=== PATIENT | male | born 1960 ===

== ENCOUNTER 2018-02-04 04:05 | Inpatient (IN) | payer BC, OTHER ==
[2018-02-04 04:22] VITALS: BMI 36.2
--- NOTE | 2018-02-04 04:22 | ED PDOC ---
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 ONCE ONE Stop: 02/04/18 07:24 Last Admin: 02/04/18 07:58 Dose: 50 meq IVP Administration Document 02/04/18 07:58 [facility] (Rec: 02/04/18 07:58 [id number]) Charges for Administration # of IVP Administrations 1 - Scribe Statement The provider has reviewed the documentation as recorded by the Sulaimanibhumaira Minor Provider Scribe Attestation: All medical record entries made by the Scribe were at my direction and personally dictated by me. I have reviewed the chart and agree that the record accurately reflects my personal performance of the history, physical exam, medical decision making, and the department course for this patient. I have also personally directed, reviewed, and agree with the discharge instructions and disposition. Disposition/Present on Arrival - Present on Arrival Any Indicators Present on Arrival: No - Disposition Have Diagnosis and Disposition been Completed?: Yes Diagnosis: Cardiac arrest Disposition: HOSPITALIZED Disposition Time: 05:25 Patient Problems: Current Active Problems Problem Status Onset Acute kidney injury Acute Anoxic brain injury Acute CHF (congestive heart failure) Acute Condition: CRITICAL
[2018-02-04 04:42] LABS: BASO # 0.06 K/mm3 (0.0-2.0); BASO % 0.3 % (0.0-3.0); EOS # 0.3 (0.0-0.7); EOS % 1.7 % (1.5-5.0); GRAN # 9.08 (1.4-6.5); GRAN % 47.9 % (50.0-68.0); HEMOGLOBIN 15.6 g/dL (14.0-18.0); LYMPH # 8.4 (1.2-3.4); LYMPH % 44.5 % (22.0-35.0); MEAN CELL VOLUME 87.1 fl (80.0-105.0); MEAN CORPUSCULAR HEMOGLOBIN 29.6 pg (25.0-35.0); MEAN PLATELET VOLUME 10.4 fl (7.0-11.0); MONO # 1.1 (0.1-0.6); MONO % 5.6 % (1.0-6.0); RBC 5.27 10^6/uL (3.5-6.1); RED CELL DISTRIBUTION WIDTH 13.9 % (11.5-14.5)
[2018-02-04 04:47] LABS: INR 1.07 (0.93-1.08); PARTIAL THROMBOPLASTIN TIME 30.1 Seconds (25.1-36.5); PROTHROMBIN TIME 12.3 SECONDS (9.4-12.5)
[2018-02-04] MEDS ORDERED: Propofol 10 mg/ml 0 MG/0 ML VIAL ONE (05:05)
[2018-02-04 05:46] LABS: ALB/GLOB RATIO 1.4 (1.1-1.8); ALBUMIN 4.4 g/dL (3.0-4.8); ALT/SGPT 204 U/L (7-56); AST/SGOT 222 U/L (17-59); BLOOD UREA NITROGEN 14 mg/dL (7-21); CALCIUM 8.7 mg/dL (8.4-10.5); GFR AFRICAN-AMERICAN > 60; GFR NON-AFRICAN AMERICAN 57; TROPONIN I 0.73 ng/mL
--- NOTE | 2018-02-04 05:57 | CT ---
EXAM: CT Head Without Intravenous Contrast CLINICAL HISTORY: 57 years old, male; Signs and symptoms; Other: Cardiac arrest TECHNIQUE: Axial computed tomography images of the head/brain without intravenous contrast. All CT scans at this facility use one or more dose reduction techniques, viz.: automated exposure control; ma/kV adjustment per patient size (including targeted exams where dose is matched to indication; i.e. head); or iterative reconstruction technique. Coronal and sagittal reformatted images were created and reviewed. COMPARISON: No relevant prior studies available. FINDINGS: Limitations: Motion artifact - mild to moderate. Brain: No definite intracranial hemorrhage. No mass. Poorly defined torres-white matter differentiation. Ventricles: No hydrocephalus. Bones/joints: No acute fracture. Soft tissues: Unremarkable. Sinuses: Scattered mild mucosal thickening of ethmoid sinuses. Mastoid air cells: No mastoid effusion. Orbits: Unremarkable as visualized. Tubes, lines and devices: Endotracheal tube. IMPRESSION: 1. Findings concerning for global hypoxic ischemic injury. Followup is suggested. 2. Incidental/non-acute findings are described above.
[2018-02-04] MEDS ORDERED: Nitroglycerin 2% Ointment Foilpak UD TOP ONE (06:14)
[2018-02-04] MEDS ORDERED: Nitroglycerin 2% Ointment Foilpak UD TOP STA (06:22)
[2018-02-04] MEDS: Propofol 10 mg/ml 1,000 MG/100 ML VIAL IV PRN ×3 (06:27→16:57)
[2018-02-04] MEDS ORDERED: Pantoprazole 40mg/100mL NS 40 MG/100 ML BAG IVPB SCH (06:30)
[2018-02-04] MEDS ORDERED: Nitroglycerin 50mg in D5W 50 MG/250 ML BOTTLE IV PRN (06:34)
[2018-02-04] MEDS ORDERED: Nitroglycerin 50mg in D5W 50 MG/250 ML BOTTLE IV ONE (06:36)
[2018-02-04] MEDS ORDERED: cefTRIAXone 2 GM IN NS 2 GM/100 ML BAG IVPB STA (06:44)
--- NOTE | 2018-02-04 06:59 | CP.PCM.HP ---
<Huber Sutton - Last Filed: 02/04/18 07:53> History of Present Illness - History of Present Illness History of Present Illness: PGY-1 H&P for Dr. Morgan This is a 57 year old male with PMHx HTN, CAD s/p CABG and 4 stents, unspecified thyroid disease who presented to the hospital brought in by ambulance after cardiac arrest. Patient currently intubated. All history provided by and supplemented by EMR review. The states that she woke up around 3AM and found that her was breathing heavily. After seeing that he was not responding, she called EMS. After arrival of emergency responders, ACLS protocol implemented. Patient noted to be in V-fib and was shocked for a total of 5 times. Two rounds of Epinephrine were given, and the placement was given amiodarone. It is unknown how long it took to achieve ROSC. Patient was ventilated with temporary airway until arrival to the ED where he was intubated. PMHx: HTN, CAD s/p CABG, unspecified thyroid disease PSHx: CABG 10 years ago Allergies: NKDA Social: Smoker 1 ppd for 40 years. No noted alcohol or drug use per . Works as director security management. Family Hx: is unsure of cardiac history in the family. PMD: does not have one at this time Home meds: ASA 81 mg, Metoprolol (unknown dose), unspecified thyroid medication Present on Admission - Present on Admission Any Indicators Present on Admission: No Review of Systems - Review of Systems Systems not reviewed;Unavailable: Acuity of Condition, Intubated Past Patient History - Infectious Disease Hx of Infectious Diseases: None - Past Social History Smoking Status: Unknown If Ever Smoked - CARDIAC Hx Cardiac Disorders: Yes Hx Hypertension: Yes Other/Comment: CABG c 4 stents - PULMONARY Hx Respiratory Disorders: No - NEUROLOGICAL Hx Neurological Disorder: No - HEENT Hx HEENT Problems: No - RENAL Hx Chronic Kidney Disease: No - ENDOCRINE/METABOLIC Hx Endocrine Disorders: Yes Hx Hypothyroidism: Yes - HEMATOLOGICAL/ONCOLOGICAL Hx Blood Disorders: No - INTEGUMENTARY Hx Dermatological Problems: No - MUSCULOSKELETAL/RHEUMATOLOGICAL Hx Musculoskeletal Disorders: No - GASTROINTESTINAL Hx Gastrointestinal Disorders: No - GENITOURINARY/GYNECOLOGICAL Hx Genitourinary Disorders: No - PSYCHIATRIC Hx Psychophysiologic Disorder: No Hx Substance Use: No - SURGICAL HISTORY Hx Surgeries: Yes Hx Coronary Artery Bypass Graft: Yes - ANESTHESIA Hx Anesthesia: Yes Hx Anesthesia Reactions: No Meds Allergies/Adverse Reactions: Allergies Allergy/AdvReac Type Severity Reaction Status Date / Time No Known Allergies Allergy Verified 02/04/18 04:41 Physical Exam - Constitutional Appears: In Acute Distress - Head Exam Head Exam: ATRAUMATIC, NORMOCEPHALIC - Eye Exam Eye Exam: Normal appearance Additional comments: Pupils equal but not responsive to light - ENT Exam ENT Exam: Mucous Membranes Moist Additional comments: OGT in place with coffee ground material inside - Respiratory Exam Respiratory Exam: Rales (right sided), Wheezes (left sided lung field). absent : Rhonchi - Cardiovascular Exam Cardiovascular Exam: Tachycardia, +S1, +S2. absent: JVD - GI/Abdominal Exam GI & Abdominal Exam: Distended, Normal Bowel Sounds, Soft. absent: Tenderness - Extremities Exam Extremities exam: Negative for: pedal edema Additional comments: varicose veins bilateral legs scar on right leg left leg IO line in place - Neurological Exam Neurological exam: Altered - Skin Skin Exam: Diaphoretic, Warm Additional comments: mid-line chest scar Results - Vital Signs Recent Vital Signs: Last Vital Signs Temp 97.2 F L 02/04/18 04:29 Pulse 113 H 02/04/18 06:21 Resp 15 02/04/18 06:21 BP 170/117 H 02/04/18 06:21 Pulse Ox 100 02/04/18 06:21 - Labs Result Diagrams: 02/04/18 04:12 02/04/18 05:00 Assessment & Plan - Assessment and Plan (Free Text) Assessment: This is a 57 year old male with PMHx HTN, CAD s/p CABG and 4 stents, unspecified thyroid disease who presented to the hospital brought in by ambulance after cardiac arrest. Plan: Neurological -Head CT shows concern for hypoxic brain injury -Down time unknown -Code Freeze initiated -Neurology Consulted -EEG ordered -sedated with propofol Cardiology -s/p cardiac arrest -s/p V-fib -per documentation shocked total of 5 times, 2 rounds of epi, and amiodarone given -Positive troponins, continue to trend -EKG on hospital presentation shows NSR with some ST depressions in apical leads -BNP ordered -Echocardiogram ordered Pulmonology -Intubated, see orders for settings -Xopenex prn GI -coffee ground material in OGT -Protonix IV Infectious Disease -Leukocytosis -f/u blood and urine cultures -Given 2 gm Rocephin -ID consulted Endocrine -hyperglycemia on admission -Insulin sliding scale Renal -lactic acidosis -Bicarb drip Heme/Onc -H/H currently stable -D dimer ordered Prophylaxis -Protonix IV Discussed with Dr. Cathy Sutton PGY-1 <Neo Morgan - Last Filed: 02/04/18 20:05> Results - Vital Signs Recent Vital Signs: Last Vital Signs Temp 94 F L 02/04/18 14:56 Pulse 95 H 02/04/18 18:30 Resp 35 H 02/04/18 14:56 BP 117/70 02/04/18 18:30 Pulse Ox 97 02/04/18 18:30 - Labs Result Diagrams: 02/04/18 17:25 02/04/18 17:25 Labs: Laboratory Results - last 24 hr 02/04/18 02/04/18 02/04/18 06:58 07:00 07:00 WBC RBC Hgb Hct MCV MCH MCHC RDW Plt Count MPV Gran % Lymph % (Auto) [place] % (Auto) Eos % (Auto) Baso % (Auto) Gran # Lymph # (Auto) [place] # (Auto) Eos # (Auto) Baso # (Auto) Neutrophils % (Manual) Band Neutrophils % Lymphocytes % (Manual) Monocytes % (Manual) Platelet Evaluation PT INR APTT D-Dimer, Quantitative 6693 H pCO2 68 H pO2 58.0 L HCO3 16.0 L ABG pH 6.98 L* ABG Total CO2 18.1 L ABG O2 Saturation 84.0 L ABG O2 Content ABG Base Excess -16.4 L ABG Hemoglobin ABG Carboxyhemoglobin POC ABG HHb (Measured) ABG Methemoglobin ABG O2 Capacity ABG Potassium 5.0 VBG pH VBG pCO2 VBG HCO3 VBG Total CO2 VBG O2 Sat (Calc) VBG Base Excess VBG Potassium Hgb O2 Saturation Sodium 138.0 Chloride 105.0 Glucose 429 H* Lactate 6.3 H* Mechanical Rate FiO2 100.0 Tidal Volume PEEP Potassium Carbon Dioxide Anion Gap BUN Creatinine Est GFR ( Amer) Est GFR (Non-Af Amer) POC Glucose (mg/dL) Random Glucose Calcium Phosphorus Magnesium Total Bilirubin AST ALT Alkaline Phosphatase Ammonia Troponin I NT-Pro-B Natriuret Pep 274 Total Protein Albumin Globulin Albumin/Globulin Ratio Procalcitonin Free T4 Free T3 pg/mL TSH 3rd Generation Arterial Blood Potassium 5.0 Venous Blood Potassium Urine Color Urine Appearance Urine pH Ur Specific [place] Urine Protein Urine Glucose (UA) Urine Ketones Urine Blood Urine Nitrate Urine Bilirubin Urine Urobilinogen Ur Leukocyte Esterase Urine RBC Urine WBC Ur Epithelial Cells Amorphous Sediment Urine Bacteria Urine Other 02/04/18 02/04/18 02/04/18 07:00 08:05 08:05 WBC RBC Hgb Hct MCV MCH MCHC RDW Plt Count MPV Gran % Lymph % (Auto) [place] % (Auto) Eos % (Auto) Baso % (Auto) Gran # Lymph # (Auto) [place] # (Auto) Eos # (Auto) Baso # (Auto) Neutrophils % (Manual) Band Neutrophils % Lymphocytes % (Manual) Monocytes % (Manual) Platelet Evaluation PT INR APTT D-Dimer, Quantitative pCO2 pO2 HCO3 ABG pH ABG Total CO2 ABG O2 Saturation ABG O2 Content ABG Base Excess ABG Hemoglobin ABG Carboxyhemoglobin POC ABG HHb (Measured) ABG Methemoglobin ABG O2 Capacity ABG Potassium VBG pH VBG pCO2 VBG HCO3 VBG Total CO2 VBG O2 Sat (Calc) VBG Base Excess VBG Potassium Hgb O2 Saturation Sodium Chloride Glucose Lactate Mechanical Rate FiO2 Tidal Volume PEEP Potassium Carbon Dioxide Anion Gap BUN Creatinine Est GFR ( Amer) Est GFR (Non-Af Amer) POC Glucose (mg/dL) Random Glucose Calcium Phosphorus Magnesium Total Bilirubin AST ALT Alkaline Phosphatase Ammonia Troponin I NT-Pro-B Natriuret Pep Total Protein Albumin Globulin Albumin/Globulin Ratio Procalcitonin Free T4 1.77 Free T3 pg/mL 5.70 H TSH 3rd Generation 2.71 Arterial Blood Potassium Venous Blood Potassium Urine Color Yellow Urine Appearance Clear Urine pH 6.5 Ur Specific [place] 1.025 Urine Protein 100 H Urine Glucose (UA) 250 H Urine Ketones Negative Urine Blood Moderate H Urine Nitrate Negative Urine Bilirubin Negative Urine Urobilinogen 1.0 H Ur Leukocyte Esterase Negative Urine RBC 20 - 25 Urine WBC 0 - 2 Ur Epithelial Cells None Amorphous Sediment Few Urine Bacteria Many Urine Other Usperm 02/04/18 02/04/18 02/04/18 09:07 11:00 12:00 WBC RBC Hgb Hct MCV MCH MCHC RDW Plt Count MPV Gran % Lymph % (Auto) [place] % (Auto) Eos % (Auto) Baso % (Auto) Gran # Lymph # (Auto) [place] # (Auto) Eos # (Auto) Baso # (Auto) Neutrophils % (Manual) Band Neutrophils % Lymphocytes % (Manual) Monocytes % (Manual) Platelet Evaluation PT INR APTT D-Dimer, Quantitative pCO2 64 H pO2 65.0 L HCO3 18.5 L ABG pH 7.07 L* ABG Total CO2 20.5 L ABG O2 Saturation 90.1 L ABG O2 Content ABG Base Excess -12.4 L ABG Hemoglobin ABG Carboxyhemoglobin POC ABG HHb (Measured) ABG Methemoglobin ABG O2 Capacity ABG Potassium 3.9 VBG pH VBG pCO2 VBG HCO3 VBG Total CO2 VBG O2 Sat (Calc) VBG Base Excess VBG Potassium Hgb O2 Saturation Sodium 143.0 Chloride 111.0 H Glucose 275 H Lactate 2.8 H Mechanical Rate FiO2 100.0 Tidal Volume PEEP Potassium Carbon Dioxide Anion Gap BUN Creatinine Est GFR ( Amer) Est GFR (Non-Af Amer) POC Glucose (mg/dL) Random Glucose Calcium Phosphorus Magnesium Total Bilirubin AST ALT Alkaline Phosphatase Ammonia 9 Troponin I 11.80 H* D NT-Pro-B Natriuret Pep Total Protein Albumin Globulin Albumin/Globulin Ratio Procalcitonin Free T4 Free T3 pg/mL TSH 3rd Generation Arterial Blood Potassium 3.9 Venous Blood Potassium Urine Color Urine Appearance Urine pH Ur Specific [place] Urine Protein Urine Glucose (UA) Urine Ketones Urine Blood Urine Nitrate Urine Bilirubin Urine Urobilinogen Ur Leukocyte Esterase Urine RBC Urine WBC Ur Epithelial Cells Amorphous Sediment Urine Bacteria Urine Other 02/04/18 02/04/18 02/04/18 12:00 12:00 12:38 WBC RBC Hgb Hct MCV MCH MCHC RDW Plt Count MPV Gran % Lymph % (Auto) [place] % (Auto) Eos % (Auto) Baso % (Auto) Gran # Lymph # (Auto) [place] # (Auto) Eos # (Auto) Baso # (Auto) Neutrophils % (Manual) Band Neutrophils % Lymphocytes % (Manual) Monocytes % (Manual) Platelet Evaluation PT INR APTT D-Dimer, Quantitative pCO2 76 H* pO2 66 H 67.0 L HCO3 21.5 ABG pH 7.06 L* ABG Total CO2 23.8 ABG O2 Saturation 91.4 L ABG O2 Content ABG Base Excess -10.1 L ABG Hemoglobin ABG Carboxyhemoglobin POC ABG HHb (Measured) ABG Methemoglobin ABG O2 Capacity ABG Potassium 3.5 L VBG pH 7.01 L* VBG pCO2 96.0 H* VBG HCO3 24.2 VBG Total CO2 27.1 VBG O2 Sat (Calc) 89.1 H VBG Base Excess -9.1 L VBG Potassium 3.9 Hgb O2 Saturation Sodium 143.0 142.0 Chloride 106.0 109.0 H Glucose 269 H 258 H Lactate 3.3 H 2.9 H Mechanical Rate 28 FiO2 21.0 80.0 Tidal Volume 400 PEEP 15 Potassium Carbon Dioxide Anion Gap BUN Creatinine Est GFR ( Amer) Est GFR (Non-Af Amer) POC Glucose (mg/dL) Random Glucose Calcium Phosphorus Magnesium Total Bilirubin AST ALT Alkaline Phosphatase Ammonia Troponin I NT-Pro-B Natriuret Pep Total Protein Albumin Globulin Albumin/Globulin Ratio Procalcitonin 2.75 H Free T4 Free T3 pg/mL TSH 3rd Generation Arterial Blood Potassium 3.5 L Venous Blood Potassium 3.9 Urine Color Urine Appearance Urine pH Ur Specific [place] Urine Protein Urine Glucose (UA) Urine Ketones Urine Blood Urine Nitrate Urine Bilirubin Urine Urobilinogen Ur Leukocyte Esterase Urine RBC Urine WBC Ur Epithelial Cells Amorphous Sediment Urine Bacteria Urine Other 02/04/18 02/04/18 02/04/18 12:41 12:45 12:45 WBC 31.1 H* D RBC 5.81 Hgb 17.6 D Hct 50.3 MCV 86.6 MCH 30.3 MCHC 35.0 RDW 14.0 Plt Count 250 MPV 11.2 H Gran % 85.8 H Lymph % (Auto) 4.5 L [place] % (Auto) 9.6 H Eos % (Auto) 0.0 L Baso % (Auto) 0.1 Gran # 26.68 H Lymph # (Auto) 1.4 [place] # (Auto) 3.0 H Eos # (Auto) 0.0 Baso # (Auto) 0.02 Neutrophils % (Manual) 94 H Band Neutrophils % 1 Lymphocytes % (Manual) 4 L Monocytes % (Manual) 1 Platelet Evaluation Normal PT INR APTT D-Dimer, Quantitative pCO2 pO2 HCO3 ABG pH ABG Total CO2 ABG O2 Saturation ABG O2 Content ABG Base Excess ABG Hemoglobin ABG Carboxyhemoglobin POC ABG HHb (Measured) ABG Methemoglobin ABG O2 Capacity ABG Potassium VBG pH VBG pCO2 VBG HCO3 VBG Total CO2 VBG O2 Sat (Calc) VBG Base Excess VBG Potassium Hgb O2 Saturation Sodium 145 Chloride 108 H Glucose Lactate Mechanical Rate FiO2 Tidal Volume PEEP Potassium 3.9 Carbon Dioxide 24 Anion Gap 17 BUN 17 Creatinine 1.5 Est GFR ( Amer) 59 Est GFR (Non-Af Amer) 48 POC Glucose (mg/dL) 226 H Random Glucose 251 H Calcium 6.9 L* Phosphorus Magnesium Total Bilirubin 0.6 AST 317 H D ALT 168 H Alkaline Phosphatase 85 Ammonia Troponin I NT-Pro-B Natriuret Pep Total Protein 6.8 Albumin 3.7 Globulin 3.2 Albumin/Globulin Ratio 1.2 Procalcitonin Free T4 Free T3 pg/mL TSH 3rd Generation Arterial Blood Potassium Venous Blood Potassium Urine Color Urine Appearance Urine pH Ur Specific [place] Urine Protein Urine Glucose (UA) Urine Ketones Urine Blood Urine Nitrate Urine Bilirubin Urine Urobilinogen Ur Leukocyte Esterase Urine RBC Urine WBC Ur Epithelial Cells Amorphous Sediment Urine Bacteria Urine Other 02/04/18 02/04/18 02/04/18 14:55 16:20 16:20 WBC RBC Hgb Hct MCV MCH MCHC RDW Plt Count MPV Gran % Lymph % (Auto) [place] % (Auto) Eos % (Auto) Baso % (Auto) Gran # Lymph # (Auto) [place] # (Auto) Eos # (Auto) Baso # (Auto) Neutrophils % (Manual) Band Neutrophils % Lymphocytes % (Manual) Monocytes % (Manual) Platelet Evaluation PT 14.1 H INR 1.23 H APTT 72.7 H D-Dimer, Quantitative pCO2 67 H pO2 65.0 L HCO3 20.3 L ABG pH 7.09 L* ABG Total CO2 22.4 ABG O2 Saturation 92.0 L ABG O2 Content 20.4 ABG Base Excess -10.9 L ABG Hemoglobin 16.1 ABG Carboxyhemoglobin 1.3 POC ABG HHb (Measured) 7.8 H ABG Methemoglobin 0.7 ABG O2 Capacity 22.2 ABG Potassium VBG pH VBG pCO2 VBG HCO3 VBG Total CO2 VBG O2 Sat (Calc) VBG Base Excess VBG Potassium Hgb O2 Saturation 90.2 L Sodium Chloride Glucose Lactate Mechanical Rate FiO2 80.0 Tidal Volume PEEP Potassium Carbon Dioxide Anion Gap BUN Creatinine Est GFR ( Amer) Est GFR (Non-Af Amer) POC Glucose (mg/dL) Random Glucose Calcium Phosphorus Magnesium Total Bilirubin AST ALT Alkaline Phosphatase Ammonia Troponin I NT-Pro-B Natriuret Pep Total Protein Albumin Globulin Albumin/Globulin Ratio Procalcitonin Free T4 Free T3 pg/mL TSH 3rd Generation Arterial Blood Potassium Venous Blood Potassium Urine Color Urine Appearance Urine pH Ur Specific [place] Urine Protein Urine Glucose (UA) Urine Ketones Urine Blood Urine Nitrate Urine Bilirubin Urine Urobilinogen Ur Leukocyte Esterase Urine RBC Urine WBC Ur Epithelial Cells Amorphous Sediment Urine Bacteria Urine Other 02/04/18 02/04/18 02/04/18 16:21 16:40 17:25 WBC 29.8 H* RBC 5.59 Hgb 16.7 Hct 48.1 MCV 86.0 MCH 29.9 MCHC 34.7 RDW 13.9 Plt Count 226 MPV 10.4 Gran % Lymph % (Auto) [place] % (Auto) Eos % (Auto) Baso % (Auto) 0.1 Gran # Lymph # (Auto) [place] # (Auto) Eos # (Auto) Baso # (Auto) 0.02 Neutrophils % (Manual) Band Neutrophils % Lymphocytes % (Manual) Monocytes % (Manual) Platelet Evaluation PT INR APTT D-Dimer, Quantitative pCO2 64 H pO2 61 H 70.0 L HCO3 19.4 L ABG pH 7.09 L* ABG Total CO2 21.4 L ABG O2 Saturation 94.0 L ABG O2 Content ABG Base Excess -11.2 L ABG Hemoglobin ABG Carboxyhemoglobin POC ABG HHb (Measured) ABG Methemoglobin ABG O2 Capacity ABG Potassium 3.1 L VBG pH 7.04 L* VBG pCO2 85.0 H* VBG HCO3 23.0 VBG Total CO2 25.6 VBG O2 Sat (Calc) 89.6 H VBG Base Excess -9.4 L VBG Potassium 3.5 L Hgb O2 Saturation Sodium 142.0 141.0 Chloride 107.0 113.0 H Glucose 266 H 264 H Lactate 4.2 H* 3.4 H Mechanical Rate FiO2 21.0 80.0 Tidal Volume PEEP Potassium Carbon Dioxide Anion Gap BUN Creatinine Est GFR ( Amer) Est GFR (Non-Af Amer) POC Glucose (mg/dL) Random Glucose Calcium Phosphorus Magnesium Total Bilirubin AST ALT Alkaline Phosphatase Ammonia Troponin I NT-Pro-B Natriuret Pep Total Protein Albumin Globulin Albumin/Globulin Ratio Procalcitonin Free T4 Free T3 pg/mL TSH 3rd Generation Arterial Blood Potassium 3.1 L Venous Blood Potassium 3.5 L Urine Color Urine Appearance Urine pH Ur Specific [place] Urine Protein Urine Glucose (UA) Urine Ketones Urine Blood Urine Nitrate Urine Bilirubin Urine Urobilinogen Ur Leukocyte Esterase Urine RBC Urine WBC Ur Epithelial Cells Amorphous Sediment Urine Bacteria Urine Other 02/04/18 02/04/18 17:25 18:35 WBC RBC Hgb Hct MCV MCH MCHC RDW Plt Count MPV Gran % Lymph % (Auto) [place] % (Auto) Eos % (Auto) Baso % (Auto) Gran # Lymph # (Auto) [place] # (Auto) Eos # (Auto) Baso # (Auto) Neutrophils % (Manual) Band Neutrophils % Lymphocytes % (Manual) Monocytes % (Manual) Platelet Evaluation PT INR APTT D-Dimer, Quantitative pCO2 pO2 HCO3 ABG pH ABG Total CO2 ABG O2 Saturation ABG O2 Content ABG Base Excess ABG Hemoglobin ABG Carboxyhemoglobin POC ABG HHb (Measured) ABG Methemoglobin ABG O2 Capacity ABG Potassium VBG pH VBG pCO2 VBG HCO3 VBG Total CO2 VBG O2 Sat (Calc) VBG Base Excess VBG Potassium Hgb O2 Saturation Sodium 146 Chloride 108 H Glucose Lactate Mechanical Rate FiO2 Tidal Volume PEEP Potassium 3.6 Carbon Dioxide 23 Anion Gap 18 BUN 17 Creatinine 1.3 Est GFR ( Amer) > 60 Est GFR (Non-Af Amer) 57 POC Glucose (mg/dL) 228 H Random Glucose 241 H Calcium 6.6 L* Phosphorus 4.3 Magnesium 1.9 Total Bilirubin 0.7 AST 270 H ALT 149 H Alkaline Phosphatase 66 Ammonia Troponin I NT-Pro-B Natriuret Pep Total Protein 6.0 Albumin 3.2 Globulin 2.7 Albumin/Globulin Ratio 1.2 Procalcitonin Free T4 Free T3 pg/mL TSH 3rd Generation Arterial Blood Potassium Venous Blood Potassium Urine Color Urine Appearance Urine pH Ur Specific [place] Urine Protein Urine Glucose (UA) Urine Ketones Urine Blood Urine Nitrate Urine Bilirubin Urine Urobilinogen Ur Leukocyte Esterase Urine RBC Urine WBC Ur Epithelial Cells Amorphous Sediment Urine Bacteria Urine Other Attending/Attestation - Attestation I have personally seen and examined this patient.: Yes I have fully participated in the care of the patient.: Yes I have reviewed all pertinent clinical information: Yes Notes (Text): 02/04/18 20:02 Patient was seen in CODE room in ER. Discussed with patient's who is branch director. Agree with history, physical examination, assessment and plan. CCT spent:60 minutes.
[2018-02-04] MEDS: Nitroglycerin 50mg in D5W 50 MG/250 ML BOTTLE IV PRN ×2 (07:02→07:33)
[2018-02-04 07:07] LABS: ARTERIAL BLOOD GAS PCO2 68 mm/Hg (35-45); ARTERIAL BLOOD GAS TCO2 18.1 mmol.L (22-28)
[2018-02-04 07:20] LABS: ARTERIAL BLOOD GAS PH 6.98 (7.35-7.45)
[2018-02-04] MEDS ORDERED: Sodium Bicarbonate (8.4%) 50 Meq Syringe IVP ONE (07:23)
[2018-02-04] MEDS ORDERED: Levalbuterol 0.63 MG/3 ML Inhal Soln UD IH PRN (07:33)
[2018-02-04 07:35] LABS: PH,URINE 6.5 (4.7-8.0); URINE BILIRUBIN NEGATIVE (NEGATIVE); URINE BLOOD MODERATE (NEGATIVE); URINE GLUCOSE (UA) 250 mg/dL (NEGATIVE); URINE LEUKOCYTE ESTERASE NEGATIVE Leu/uL (NEGATIVE); URINE PROTEIN 100 mg/dL (<30 mg/dL)
[2018-02-04 07:42] LABS: URINE APPEARANCE CLEAR (CLEAR); URINE COLOR YELLOW (YELLOW)
[2018-02-04 08:01] LABS: URINE RBC 20 - 25 /hpf (0-2); URINE WBC 0 - 2 /hpf (0-6)
[2018-02-04 08:02] LABS: URINE AMORPHOUS SEDIMENT FEW; URINE BACTERIA MANY (NEG)
[2018-02-04] MEDS ORDERED: Vancomycin 2 GM in Sodium Chloride 0.9% 500 ML IVPB ONE (08:30)
--- NOTE | 2018-02-04 08:31 | RAD ---
HISTORY: intubated, worsening sats, reassess COMPARISON: Portable chest 02/04/2018. FINDINGS: LUNGS: Endotracheal tube is unchanged in position with nasogastric tube likely also unchanged. A blanket or other device obscures overall chest anatomy however increasing opacity seen at the right upper lobe suspicious for developing pneumonia and somewhat also at the right base. No definite left-sided infiltrate. PLEURA: No significant pleural effusion identified, no pneumothorax apparent. CARDIOVASCULAR: Cardiac size appears stable however pulmonary vascular congestion is questioned developing. OSSEOUS STRUCTURES: No significant abnormalities. VISUALIZED UPPER ABDOMEN: Normal. OTHER FINDINGS: None. IMPRESSION: Combination of increasing airspace disease is appreciated particularly at the right upper lobe and possibly the right base with developing pulmonary vascular congestion as well. Further clinical correlation advised.
--- NOTE | 2018-02-04 08:34 | RAD ---
HISTORY: post intubation COMPARISON: No prior. FINDINGS: LUNGS: Endotracheal tube is identified terminating at the mid trachea 6.9 cm above the presley. A nasogastric tube is placed terminating at the left upper quadrant abdomen coiled in the region of the gastric viscus. No definite infiltrates identified bilaterally. PLEURA: No significant pleural effusion identified, no pneumothorax apparent. CARDIOVASCULAR: Cardiac silhouette appears upper limits normal size with mild pulmonary venous congestion questioned. OSSEOUS STRUCTURES: No significant abnormalities. VISUALIZED UPPER ABDOMEN: Normal. OTHER FINDINGS: None. IMPRESSION: Mild pulmonary venous congestion in question. No definite infiltrate or pleural effusion. ET and nasogastric tubes in reasonable position.
[2018-02-04 08:51] LABS: FREE T4 1.77 ng/dL (0.78-2.19)
[2018-02-04] MEDS ORDERED: Primacor 1 mg/ml Inj (10 ml) IVP ONE (08:52)
[2018-02-04 09:10] LABS: ARTERIAL BLOOD GAS HCO3 18.5 mmol/L (21-28); ARTERIAL BLOOD GAS O2 SAT 90.1 % (95-98); ARTERIAL BLOOD GAS PCO2 64 mm/Hg (35-45); ARTERIAL BLOOD GAS TCO2 20.5 mmol.L (22-28)
[2018-02-04 09:12] LABS: ARTERIAL BLOOD GAS PH 7.07 (7.35-7.45)
[2018-02-04] MEDS: Milrinone 20mg/100ml D5W 100 ML IV PRN ×2 (09:33→16:08)
[2018-02-04] MEDS: Heparin25000 units/250ml 1/2NS 25,000 UNITS/250 ML BAG IV SCH (09:58)
[2018-02-04] MEDS: Cisatracurium Besylate 200 MG in Sodium Chloride 0.9% 250 ML IV PRN (10:19)
[2018-02-04] MEDS: Cefepime IV 2 gm in NS 2 GM/100 ML BAG IVPB SCH ×2 (10:43→21:15)
--- NOTE | 2018-02-04 10:58 | PCM.SEPTIC ---
Sepsis Progress Note - Non Invasive Reassessment Vital Sign (Latest): Temp Pulse Resp BP Pulse Ox 100.1 F H 89 28 H 109/61 92 L 02/04/18 08:24 02/04/18 09:33 02/04/18 08:24 02/04/18 09:33 02/04/18 08:24
[2018-02-04] MEDS ORDERED: Insulin Reg-LOW-Coverage SC SCH (11:30)
[2018-02-04] MEDS: Pantoprazole 40mg/100mL NS 40 MG/100 ML BAG IVPB SCH ×3 (12:04→21:16)
[2018-02-04] MEDS: Amiodarone 360 mg/D5W 200 ml 360 MG/200 ML BAG IV SCH ×3 (12:04→19:00)
[2018-02-04 12:09] LABS: VENOUS BLOOD GAS BASE EXCESS -9.1 mmol/L (0.0-2.0); VENOUS BLOOD GAS PO2 66 mm/Hg (30-55)
--- NOTE | 2018-02-04 12:14 | PCM.PROC ---
Procedures Attestation:: I certify that I have explained the specified Operation(s) or Procedure(s), risks, benefits and reasonable alternatives to the Patient and/or other person responsible. The opportunity was given to ask questions and all questions answered - Central Line Placement Right Internal Jugular Triple Lumen Catheter Aseptic technique was employed throughout the procedure: Hand Hygiene done prior to procedure, Full sterile barriers (mask, hair cover, sterile gown, sterile gloves), Full body sterile drape, Chloraprep Antiseptic: 30 second prep for IJ or SC sites CVP Time Out Performed: Yes Pt. Placed on Pulse Ox Monitor: Yes Central Line Prep: Chlorhexidine-Alcohol Combination Amount of Anesthesia Used (mls): 0 (None used, pt intubated/sedated) Ultrasound Used for Placement: Yes Central Line Lumen Inserted: triple Central Line Length: 16 cm Post Procedure: Sutured in Place, Good Blood Return, All Ports Aspirated, Flushed, Capped, Sterile Dressing Applied Secured by: Securement device (both suture and securement devicde) Post procedure dressing: Gauze, Chlorhexidine disc (Biopatch) Post Procedure X-Ray: Yes Patient Tolerated Procedure: Well, No Complications Immediate Complications: None
[2018-02-04 12:16] LABS: VENOUS BLOOD PH 7.01 (7.32-7.43)
--- NOTE | 2018-02-04 12:40 | RAD ---
HISTORY: IJ central line COMPARISON: No prior. FINDINGS: LUNGS: The right internal jugular line is in the SVC just below the clavicle. There is no pneumothorax. Findings were discussed with Dr. Soto. There is improvement in the pattern of pulmonary edema. Endotracheal and nasogastric tube are unchanged. PLEURA: No significant pleural effusion identified, no pneumothorax apparent. CARDIOVASCULAR: Normal. OSSEOUS STRUCTURES: No significant abnormalities. VISUALIZED UPPER ABDOMEN: Normal. OTHER FINDINGS: None. IMPRESSION: Improved pulmonary edema. Satisfactory position of right IJ line
--- NOTE | 2018-02-04 12:51 | CARD ---
APPROVED REPORT EKG Measurement Heart [id number] MA 180P65 [id number] <Conclusion> Normal sinus rhythm Inferior infarct, age undetermined Marked ST abnormality, possible anterior subendocardial injury Prolonged QTc
[2018-02-04 12:53] LABS: ARTERIAL BLOOD GAS HCO3 21.5 mmol/L (21-28); ARTERIAL BLOOD GAS O2 SAT 91.4 % (95-98); ARTERIAL BLOOD GAS PCO2 76 mm/Hg (35-45); ARTERIAL BLOOD GAS TCO2 23.8 mmol.L (22-28)
[2018-02-04 12:55] LABS: BASO # 0.02 K/mm3 (0.0-2.0); BASO % 0.1 % (0.0-3.0); GRAN # 26.68 (1.4-6.5); GRAN % 85.8 % (50.0-68.0); HEMOGLOBIN 17.6 g/dL (14.0-18.0); LYMPH # 1.4 (1.2-3.4); LYMPH % 4.5 % (22.0-35.0); MEAN CELL VOLUME 86.6 fl (80.0-105.0); MEAN CORPUSCULAR HEMOGLOBIN 30.3 pg (25.0-35.0); MEAN PLATELET VOLUME 11.2 fl (7.0-11.0); MONO % 9.6 % (1.0-6.0); PLATELET COUNT 250 10^3/uL (120.0-450.0); RBC 5.81 10^6/uL (3.5-6.1)
[2018-02-04 12:55] LABS: ARTERIAL BLOOD GAS PH 7.06 (7.35-7.45)
[2018-02-04 13:05] LABS: WHITE BLOOD COUNT 31.1 10^3/ul (4.5-11.0)
[2018-02-04 13:07] LABS: ALB/GLOB RATIO 1.2 (1.1-1.8); ALBUMIN 3.7 g/dL (3.0-4.8); CALCIUM 6.9 mg/dL (8.4-10.5)
--- NOTE | 2018-02-04 13:12 | CP.PCM.CON ---
History of Present Illness - History of Present Illness History of Present Illness: 57 year old male with PMH of CAD S/P CABG, HTN, thyroid disease, significant smoking history was brought in to [facility] after the noted that he was breathing heavily and not responding to commands. 911 was called and the patient was intubated in the ambulance and had cardiac arrest. He was resuscitated in the ED, put on the ventilator. He developed V-tach and had to be shocked several times. He is currently in the ICU for further management and observation. He had low grade temperatures as well and leukocytosis and Infectious Diseases consult is requested to further evaluate and manage. Review of Systems - Review of Systems All systems: reviewed and no additional remarkable complaints except (as per HPI ) Past Patient History - Infectious Disease Hx of Infectious Diseases: None - Past Social History Smoking Status: Unknown If Ever Smoked - CARDIAC Hx Cardiac Disorders: Yes Hx Hypertension: Yes Other/Comment: CABG c 4 stents - PULMONARY Hx Respiratory Disorders: No - NEUROLOGICAL Hx Neurological Disorder: No - HEENT Hx HEENT Problems: No - RENAL Hx Chronic Kidney Disease: No - ENDOCRINE/METABOLIC Hx Endocrine Disorders: Yes Hx Hypothyroidism: Yes - HEMATOLOGICAL/ONCOLOGICAL Hx Blood Disorders: No - INTEGUMENTARY Hx Dermatological Problems: No - MUSCULOSKELETAL/RHEUMATOLOGICAL Hx Musculoskeletal Disorders: No - GASTROINTESTINAL Hx Gastrointestinal Disorders: No - GENITOURINARY/GYNECOLOGICAL Hx Genitourinary Disorders: No - PSYCHIATRIC Hx Psychophysiologic Disorder: No Hx Substance Use: No - SURGICAL HISTORY Hx Surgeries: Yes Hx Coronary Artery Bypass Graft: Yes - ANESTHESIA Hx Anesthesia: Yes Hx Anesthesia Reactions: No Meds Allergies/Adverse Reactions: Allergies Allergy/AdvReac Type Severity Reaction Status Date / Time No Known Allergies Allergy Verified 02/04/18 04:41 - Medications Medications: Current Medications Propofol (Diprivan) 1,000 mg in 100 mls @ 3.538 mls/hr IV .Q24H PRN; Protocol; 5 MCG/KG/MIN PRN Reason: TITRATE PER MD ORDER Last Admin: 02/04/18 06:27 Dose: 3.538 mls/hr Nitroglycerin/Dextrose (Nitroglycerin 50 Mg/250 Ml D5w) 50 mg in 250 mls @ 15 mls/hr IV .[id number] PRN; Protocol; 50 MCG/MIN PRN Reason: Maintain sbp abou 160 mmHg Last Titration: 02/04/18 07:30 Dose: 30 mcg/min, 9 mls/hr Sodium Bicarbonate 50 meq/ (Sodium Chloride) 1,050 mls @ 100 mls/hr IV .[id number] DAMON Cefepime HCl (Maxipime 2gm) 2 gm in 100 mls @ 100 mls/hr IVPB Q12 DAMON PRN Reason: Protocol Stop: 02/09/18 10:01 Vancomycin HCl 2 gm/ Sodium (Chloride) 500 mls @ 170 mls/hr IVPB ONCE ONE PRN Reason: Protocol Stop: 02/04/18 11:26 Insulin Human Regular (Humulin R Low) 0 units SC ACHS DAMON PRN Reason: Protocol Levalbuterol HCl (Xopenex) 0.63 mg IH [id number] PRN PRN Reason: Shortness of Breath Pantoprazole Sodium (Protonix Inj) 40 mg IVP DAILY DAMON Physical Exam - Constitutional Appears: In Acute Distress, Other (intubated, sedated) - ENT Exam Additional comments: ET tube in place - Respiratory Exam Respiratory Exam: Decreased Breath Sounds - Cardiovascular Exam Cardiovascular Exam: +S1, +S2 - GI/Abdominal Exam GI & Abdominal Exam: Soft. absent: Tenderness Results - Vital Signs Recent Vital Signs: Last Vital Signs Temp 100.1 F H 02/04/18 08:24 Pulse 104 H 02/04/18 08:24 Resp 28 H 02/04/18 08:24 BP 118/74 02/04/18 08:24 Pulse Ox 92 L 02/04/18 08:24 - Labs Result Diagrams: 02/04/18 04:12 02/04/18 05:00 Labs: Laboratory Results - last 24 hr 02/04/18 02/04/18 02/04/18 06:58 07:00 07:00 D-Dimer, Quantitative 6693 H pCO2 68 H pO2 58.0 L HCO3 16.0 L ABG pH 6.98 L* ABG Total CO2 18.1 L ABG O2 Saturation 84.0 L ABG Base Excess -16.4 L ABG Potassium 5.0 Sodium 138.0 Chloride 105.0 Glucose 429 H* Lactate 6.3 H* FiO2 100.0 NT-Pro-B Natriuret Pep 274 Arterial Blood Potassium 5.0 Urine Color Urine Appearance Urine pH Ur Specific [place] Urine Protein Urine Glucose (UA) Urine Ketones Urine Blood Urine Nitrate Urine Bilirubin Urine Urobilinogen Ur Leukocyte Esterase Urine RBC Urine WBC Ur Epithelial Cells Amorphous Sediment Urine Bacteria Urine Other 02/04/18 07:00 D-Dimer, Quantitative pCO2 pO2 HCO3 ABG pH ABG Total CO2 ABG O2 Saturation ABG Base Excess ABG Potassium Sodium Chloride Glucose Lactate FiO2 NT-Pro-B Natriuret Pep Arterial Blood Potassium Urine Color Yellow Urine Appearance Clear Urine pH 6.5 Ur Specific [place] 1.025 Urine Protein 100 H Urine Glucose (UA) 250 H Urine Ketones Negative Urine Blood Moderate H Urine Nitrate Negative Urine Bilirubin Negative Urine Urobilinogen 1.0 H Ur Leukocyte Esterase Negative Urine RBC 20 - 25 Urine WBC 0 - 2 Ur Epithelial Cells None Amorphous Sediment Few Urine Bacteria Many Urine Other Usperm Assessment & Plan - Assessment and Plan (Free Text) Plan: Assessment Systemic Inflammatory response syndrome, consider due to cardiac arrest etiology to be determined, R/O sepsis source to be determined CAD S/P CABG HTN thyroid disease significant smoking history Plan gave the patient a dose of IV Vancomycin and started Cefepime pending blood, urine cx, PCT, CXR; reviewed CT head showing possible hypoxic brain injury - follow up Neurology evaluation overall prognosis is poor will monitor clinically
[2018-02-04] MEDS ORDERED: levETIRAcetam 1,000 MG in Sodium Chloride 0.9% 100 ML IV ONE (13:18)
[2018-02-04] MEDS ORDERED: Sodium Chloride 0.9% 1,000 ML IV SCH (13:30)
[2018-02-04 13:31] LABS: BAND 1 % (0-2); LYMPHOCYTE 4 % (22.0-35.0); MONOCYTE 1 % (1.0-6.0); NEUTROPHIL 94 % (50.0-70.0)
[2018-02-04 13:32] LABS: PLATELET ESTIMATE NORMAL (NORMAL)
--- NOTE | 2018-02-04 14:10 | PCM.PROC ---
Procedures Attestation:: I certify that I have explained the specified Operation(s) or Procedure(s), risks, benefits and reasonable alternatives to the Patient and/or other person responsible. The opportunity was given to ask questions and all questions answered - Arterial Line Right Femoral Aseptic technique was employed throughout the procedure: Hand Hygiene done prior to procedure, Full sterile barriers (mask, hair cover, sterile gown, sterile gloves), Full body sterile drape, Chloraprep Antiseptic: 2 minute prep for Femoral Time Out Performed: Yes Pt. placed on Pulse Ox Monitor: Yes Central Line Prep: Chlorhexidine-Alcohol Combination Ultrasound Used for Placement: Yes Gauge (Size): 20 gauge Technique Used: Guide Wire Technique Secured by: Suture Post procedure dressing: Clear vapor permeable, Chlorhexidine disc (Biopatch) Patient Tolerated Procedure: well Immediate Complications: none
--- NOTE | 2018-02-04 14:40 | CP.PCM.CON ---
History of Present Illness - History of Present Illness History of Present Illness: 57 yr old male who Past Patient History - Infectious Disease Hx of Infectious Diseases: None - Past Social History Smoking Status: Unknown If Ever Smoked - CARDIAC Hx Cardiac Disorders: Yes Hx Hypertension: Yes Other/Comment: CABG c 4 stents - PULMONARY Hx Respiratory Disorders: No - NEUROLOGICAL Hx Neurological Disorder: No - HEENT Hx HEENT Problems: No - RENAL Hx Chronic Kidney Disease: No - ENDOCRINE/METABOLIC Hx Endocrine Disorders: Yes Hx Hypothyroidism: Yes - HEMATOLOGICAL/ONCOLOGICAL Hx Blood Disorders: No - INTEGUMENTARY Hx Dermatological Problems: No - MUSCULOSKELETAL/RHEUMATOLOGICAL Hx Musculoskeletal Disorders: No - GASTROINTESTINAL Hx Gastrointestinal Disorders: No - GENITOURINARY/GYNECOLOGICAL Hx Genitourinary Disorders: No - PSYCHIATRIC Hx Psychophysiologic Disorder: No Hx Substance Use: No - SURGICAL HISTORY Hx Surgeries: Yes Hx Coronary Artery Bypass Graft: Yes - ANESTHESIA Hx Anesthesia: Yes Hx Anesthesia Reactions: No Meds Allergies/Adverse Reactions: Allergies Allergy/AdvReac Type Severity Reaction Status Date / Time No Known Allergies Allergy Verified 02/04/18 04:41 - Medications Medications: Current Medications Aspirin (Aspirin Chewable) 81 mg PO DAILY DAMON Last Admin: 02/04/18 12:56 Dose: Not Given Atorvastatin Calcium (Lipitor) 40 mg PO DIN DAMON Propofol (Diprivan) 1,000 mg in 100 mls @ 3.538 mls/hr IV .Q24H PRN; Protocol; 5 MCG/KG/MIN PRN Reason: TITRATE PER MD ORDER Last Titration: 02/04/18 11:34 Dose: 20 mcg/kg/min, 14.152 mls/hr Cefepime HCl (Maxipime 2gm) 2 gm in 100 mls @ 100 mls/hr IVPB Q12 DAMON PRN Reason: Protocol Stop: 02/09/18 10:01 Last Admin: 02/04/18 10:43 Dose: 100 mls/hr Pantoprazole Sodium (Protonix 40mg Ivpb) 40 mg in 100 mls @ 20 mls/hr IVPB .Q5H DAMON Last Admin: 02/04/18 12:04 Dose: 20 mls/hr Amiodarone HCl/Dextrose (Nexterone 360 Mg In D5w 200 Ml (Premix)) 360 mg in 200 mls @ 33.333 mls/hr IV .Q6H DAMON; 1 MG/MIN PRN Reason: Protocol Last Admin: 02/04/18 12:04 Dose: 33.333 mls/hr Milrinone Lactate/Dextrose (Primacor 20mg/100ml D5w) 100 mls @ 13.268 mls/hr IV .Q7H33M PRN; Protocol; 0.375 MCG/KG/MIN PRN Reason: TITRATE PER MD ORDER Last Admin: 02/04/18 09:33 Dose: 0.375 mcg/kg/min, 13.268 mls/hr Cisatracurium Besylate 200 mg/ (Sodium Chloride) 270 mls @ 9.55 mls/hr IV .Q24H PRN; Protocol; 1 MCG/KG/MIN PRN Reason: TITRATE PER MD ORDER Last Titration: 02/04/18 10:50 Dose: 0.5 mcg/kg/min, 4.77 mls/hr Heparin Sodium/Sodium Chloride (Heparin 86185 Units/250ml 1/2 Normal Saline) 25 ,000 units in 250 mls @ 14.152 mls/hr IV .[id number] DAMON; 12 UNITS/KG/HR PRN Reason: Protocol Last Titration: 02/04/18 10:30 Dose: 0 units/kg/hr, 0 mls/hr Levetiracetam 750 mg/ Sodium (Chloride) 107.5 mls @ 430 mls/hr IV Q12 DAMON Sodium Chloride (Sodium Chloride 0.9%) 1,000 mls @ 100 mls/hr IV .Q10H DAMON Insulin Human Regular (Humulin R Low) 0 units SC ACHS DAMON PRN Reason: Protocol Levalbuterol HCl (Xopenex) 0.63 mg IH [id number] PRN PRN Reason: Shortness of Breath Last Admin: 02/04/18 13:10 Dose: 0.63 mg Results - Vital Signs Recent Vital Signs: Last Vital Signs Temp 94.5 F L 02/04/18 12:16 Pulse 85 02/04/18 12:59 Resp 28 H 02/04/18 12:16 BP 113/70 02/04/18 13:00 Pulse Ox 92 L 02/04/18 12:59 - Labs Result Diagrams: 02/04/18 12:45 02/04/18 12:45 Labs: Laboratory Results - last 24 hr 02/04/18 02/04/1818 06:58 07:00 07:00 WBC RBC Hgb Hct MCV MCH MCHC RDW Plt Count MPV Gran % Lymph % (Auto) [place] % (Auto) Eos % (Auto) Baso % (Auto) Gran # Lymph # (Auto) [place] # (Auto) Eos # (Auto) Baso # (Auto) Neutrophils % (Manual) Band Neutrophils % Lymphocytes % (Manual) Monocytes % (Manual) Platelet Evaluation D-Dimer, Quantitative 6693 H pCO2 68 H pO2 58.0 L HCO3 16.0 L ABG pH 6.98 L* ABG Total CO2 18.1 L ABG O2 Saturation 84.0 L ABG Base Excess -16.4 L ABG Potassium 5.0 VBG pH VBG pCO2 VBG HCO3 VBG Total CO2 VBG O2 Sat (Calc) VBG Base Excess VBG Potassium Sodium 138.0 Chloride 105.0 Glucose 429 H* Lactate 6.3 H* Mechanical Rate FiO2 100.0 Tidal Volume PEEP Potassium Carbon Dioxide Anion Gap BUN Creatinine Est GFR ( Amer) Est GFR (Non-Af Amer) POC Glucose (mg/dL) Random Glucose Calcium Total Bilirubin AST ALT Alkaline Phosphatase Ammonia NT-Pro-B Natriuret Pep 274 Total Protein Albumin Globulin Albumin/Globulin Ratio Free T4 Free T3 pg/mL TSH 3rd Generation Arterial Blood Potassium 5.0 Venous Blood Potassium Urine Color Urine Appearance Urine pH Ur Specific [place] Urine Protein Urine Glucose (UA) Urine Ketones Urine Blood Urine Nitrate Urine Bilirubin Urine Urobilinogen Ur Leukocyte Esterase Urine RBC Urine WBC Ur Epithelial Cells Amorphous Sediment Urine Bacteria Urine Other 02/04/18 02/04/18 02/04/18 07:00 08:05 08:05 WBC RBC Hgb Hct MCV MCH MCHC RDW Plt Count MPV Gran % Lymph % (Auto) [place] % (Auto) Eos % (Auto) Baso % (Auto) Gran # Lymph # (Auto) [place] # (Auto) Eos # (Auto) Baso # (Auto) Neutrophils % (Manual) Band Neutrophils % Lymphocytes % (Manual) Monocytes % (Manual) Platelet Evaluation D-Dimer, Quantitative pCO2 pO2 HCO3 ABG pH ABG Total CO2 ABG O2 Saturation ABG Base Excess ABG Potassium VBG pH VBG pCO2 VBG HCO3 VBG Total CO2 VBG O2 Sat (Calc) VBG Base Excess VBG Potassium Sodium Chloride Glucose Lactate Mechanical Rate FiO2 Tidal Volume PEEP Potassium Carbon Dioxide Anion Gap BUN Creatinine Est GFR ( Amer) Est GFR (Non-Af Amer) POC Glucose (mg/dL) Random Glucose Calcium Total Bilirubin AST ALT Alkaline Phosphatase Ammonia NT-Pro-B Natriuret Pep Total Protein Albumin Globulin Albumin/Globulin Ratio Free T4 1.77 Free T3 pg/mL 5.70 H TSH 3rd Generation 2.71 Arterial Blood Potassium Venous Blood Potassium Urine Color Yellow Urine Appearance Clear Urine pH 6.5 Ur Specific [place] 1.025 Urine Protein 100 H Urine Glucose (UA) 250 H Urine Ketones Negative Urine Blood Moderate H Urine Nitrate Negative Urine Bilirubin Negative Urine Urobilinogen 1.0 H Ur Leukocyte Esterase Negative Urine RBC 20 - 25 Urine WBC 0 - 2 Ur Epithelial Cells None Amorphous Sediment Few Urine Bacteria Many Urine Other Usperm 02/04/18 02/04/18 02/04/18 09:07 12:00 12:00 WBC RBC Hgb Hct MCV MCH MCHC RDW Plt Count MPV Gran % Lymph % (Auto) [place] % (Auto) Eos % (Auto) Baso % (Auto) Gran # Lymph # (Auto) [place] # (Auto) Eos # (Auto) Baso # (Auto) Neutrophils % (Manual) Band Neutrophils % Lymphocytes % (Manual) Monocytes % (Manual) Platelet Evaluation D-Dimer, Quantitative pCO2 64 H pO2 65.0 L 66 H HCO3 18.5 L ABG pH 7.07 L* ABG Total CO2 20.5 L ABG O2 Saturation 90.1 L ABG Base Excess -12.4 L ABG Potassium 3.9 VBG pH 7.01 L* VBG pCO2 96.0 H* VBG HCO3 24.2 VBG Total CO2 27.1 VBG O2 Sat (Calc) 89.1 H VBG Base Excess -9.1 L VBG Potassium 3.9 Sodium 143.0 143.0 Chloride 111.0 H 106.0 Glucose 275 H 269 H Lactate 2.8 H 3.3 H Mechanical Rate FiO2 100.0 21.0 Tidal Volume PEEP Potassium Carbon Dioxide Anion Gap BUN Creatinine Est GFR ( Amer) Est GFR (Non-Af Amer) POC Glucose (mg/dL) Random Glucose Calcium Total Bilirubin AST ALT Alkaline Phosphatase Ammonia 9 NT-Pro-B Natriuret Pep Total Protein Albumin Globulin Albumin/Globulin Ratio Free T4 Free T3 pg/mL TSH 3rd Generation Arterial Blood Potassium 3.9 Venous Blood Potassium 3.9 Urine Color Urine Appearance Urine pH Ur Specific [place] Urine Protein Urine Glucose (UA) Urine Ketones Urine Blood Urine Nitrate Urine Bilirubin Urine Urobilinogen Ur Leukocyte Esterase Urine RBC Urine WBC Ur Epithelial Cells Amorphous Sediment Urine Bacteria Urine Other 02/04/18 02/04/18 02/04/18 12:38 12:41 12:45 WBC 31.1 H* D RBC 5.81 Hgb 17.6 D Hct 50.3 MCV 86.6 MCH 30.3 MCHC 35.0 RDW 14.0 Plt Count 250 MPV 11.2 H Gran % 85.8 H Lymph % (Auto) 4.5 L [place] % (Auto) 9.6 H Eos % (Auto) 0.0 L Baso % (Auto) 0.1 Gran # 26.68 H Lymph # (Auto) 1.4 [place] # (Auto) 3.0 H Eos # (Auto) 0.0 Baso # (Auto) 0.02 Neutrophils % (Manual) 94 H Band Neutrophils % 1 Lymphocytes % (Manual) 4 L Monocytes % (Manual) 1 Platelet Evaluation Normal D-Dimer, Quantitative pCO2 76 H* pO2 67.0 L HCO3 21.5 ABG pH 7.06 L* ABG Total CO2 23.8 ABG O2 Saturation 91.4 L ABG Base Excess -10.1 L ABG Potassium 3.5 L VBG pH VBG pCO2 VBG HCO3 VBG Total CO2 VBG O2 Sat (Calc) VBG Base Excess VBG Potassium Sodium 142.0 Chloride 109.0 H Glucose 258 H Lactate 2.9 H Mechanical Rate 28 FiO2 80.0 Tidal Volume 400 PEEP 15 Potassium Carbon Dioxide Anion Gap BUN Creatinine Est GFR ( Amer) Est GFR (Non-Af Amer) POC Glucose (mg/dL) 226 H Random Glucose Calcium Total Bilirubin AST ALT Alkaline Phosphatase Ammonia NT-Pro-B Natriuret Pep Total Protein Albumin Globulin Albumin/Globulin Ratio Free T4 Free T3 pg/mL TSH 3rd Generation Arterial Blood Potassium 3.5 L Venous Blood Potassium Urine Color Urine Appearance Urine pH Ur Specific [place] Urine Protein Urine Glucose (UA) Urine Ketones Urine Blood Urine Nitrate Urine Bilirubin Urine Urobilinogen Ur Leukocyte Esterase Urine RBC Urine WBC Ur Epithelial Cells Amorphous Sediment Urine Bacteria Urine Other 02/04/18 12:45 WBC RBC Hgb Hct MCV MCH MCHC RDW Plt Count MPV Gran % Lymph % (Auto) [place] % (Auto) Eos % (Auto) Baso % (Auto) Gran # Lymph # (Auto) [place] # (Auto) Eos # (Auto) Baso # (Auto) Neutrophils % (Manual) Band Neutrophils % Lymphocytes % (Manual) Monocytes % (Manual) Platelet Evaluation D-Dimer, Quantitative pCO2 pO2 HCO3 ABG pH ABG Total CO2 ABG O2 Saturation ABG Base Excess ABG Potassium VBG pH VBG pCO2 VBG HCO3 VBG Total CO2 VBG O2 Sat (Calc) VBG Base Excess VBG Potassium Sodium 145 Chloride 108 H Glucose Lactate Mechanical Rate FiO2 Tidal Volume PEEP Potassium 3.9 Carbon Dioxide 24 Anion Gap 17 BUN 17 Creatinine 1.5 Est GFR ( Amer) 59 Est GFR (Non-Af Amer) 48 POC Glucose (mg/dL) Random Glucose 251 H Calcium 6.9 L* Total Bilirubin 0.6 AST 317 H D ALT 168 H Alkaline Phosphatase 85 Ammonia NT-Pro-B Natriuret Pep Total Protein 6.8 Albumin 3.7 Globulin 3.2 Albumin/Globulin Ratio 1.2 Free T4 Free T3 pg/mL TSH 3rd Generation Arterial Blood Potassium Venous Blood Potassium Urine Color Urine Appearance Urine pH Ur Specific [place] Urine Protein Urine Glucose (UA) Urine Ketones Urine Blood Urine Nitrate Urine Bilirubin Urine Urobilinogen Ur Leukocyte Esterase Urine RBC Urine WBC Ur Epithelial Cells Amorphous Sediment Urine Bacteria Urine Other
--- NOTE | 2018-02-04 14:41 | PCM.EEG ---
Electroencephalogram Report - Electroencephalogram Report Procedure Date: 02/04/18 Interpretation: Very low amplitude rhythm with no normal posterior dominant rhythm. no interictal epileptiform discharges. no seizure Impression: Abnormal eeg. Repeat EEG to be done in am, as patient is now on sedation.
[2018-02-04 15:01] LABS: ARTERIAL BLOOD GAS HCO3 20.3 mmol/L (21-28); ARTERIAL BLOOD GAS HEMOGLOBIN 16.1 g/dL (11.7-17.4); ARTERIAL BLOOD GAS O2 CAPACITY 22.2 mL/dl (16-24); ARTERIAL BLOOD GAS O2 CONTENT 20.4 ML/dl (15-23); ARTERIAL BLOOD GAS PCO2 67 mm/Hg (35-45); ARTERIAL BLOOD GAS TCO2 22.4 mmol.L (22-28)
[2018-02-04 15:03] LABS: ARTERIAL BLOOD GAS PH 7.09 (7.35-7.45)
[2018-02-04] MEDS ORDERED: Pneumococcal 23-Valent Vaccine IM ONE (15:18)
[2018-02-04] MEDS ORDERED: NOREPINEPHRINE BIT/0.9 % NACL 4 MG/250 ML BAG IV PRN (15:23)
--- NOTE | 2018-02-04 16:26 | CARD ---
APPROVED REPORT EKG Measurement Heart [id number] 154P73 [id number] <Conclusion> Sinus rhythm with premature atrial complexes Cannot rule out Inferior infarct, age undetermined STTW changes
[2018-02-04 16:29] LABS: VENOUS BLOOD GAS BASE EXCESS -9.4 mmol/L (0.0-2.0); VENOUS BLOOD GAS PO2 61 mm/Hg (30-55)
[2018-02-04 16:36] LABS: VENOUS BLOOD PH 7.04 (7.32-7.43)
[2018-02-04] MEDS: Aritificial Tears (15ml) OU PRN (16:36)
[2018-02-04 16:50] LABS: ARTERIAL BLOOD GAS HCO3 19.4 mmol/L (21-28); ARTERIAL BLOOD GAS PCO2 64 mm/Hg (35-45); ARTERIAL BLOOD GAS TCO2 21.4 mmol.L (22-28)
[2018-02-04 16:51] LABS: ARTERIAL BLOOD GAS PH 7.09 (7.35-7.45)
--- NOTE | 2018-02-04 17:05 | CON ---
DATE: 02/04/2018 INDICATIONS: Cardiac arrest at home. HISTORY OF PRESENT ILLNESS: This is a 57-year-old man with known coronary artery disease, who was found with agonal breathing by his in the [employer]. EMS was called when he was found to be unresponsive. Resuscitation was attempted in the field, he was shocked multiple times. He was brought to the emergency room and intubated. He was in sinus rhythm, currently on a ventilator. His is at the bedside. He has a history of coronary artery disease, SD, coronary bypass surgery 10 years ago, he has had coronary stents. He has had no recent cardiac followup. He continues to smoke. Prior to this acute event, he was not complaining of any particular cardiac symptomatology. There was no chest pain reported. There was no shortness of breath. Apparently, he was seen for abdominal complaints a week or so ago, but no diagnosis was made at that time. PAST MEDICAL HISTORY: Additional past medical history includes hypertension, hypothyroidism. He is a smoker. There is no history of rheumatic fever, stroke, TIA, diabetes or gout. MEDICATIONS: At the time of admission include aspirin, Synthroid, and Lopressor. ALLERGIES: THERE ARE NO MEDICATION ALLERGIES REPORTED. FAMILY HISTORY: Not obtainable. SOCIAL HISTORY: He lives at home with his . He is a security assistant. He does not drink alcohol. He does not use drugs. REVIEW OF SYSTEMS: A 10-point review of systems not obtainable. PHYSICAL EXAMINATION: GENERAL: He is a well-developed male, lying on the stretcher in the emergency room, intubated. Code chill is being instituted. VITAL SIGNS: Notable for sinus rhythm to sinus tachycardia. Temperature is 97.2, blood pressure 170/117, repeat 109/61, respirations 28, O2 sat 92% on the ventilator with 100% FiO2. HEENT: Reveals neck vein distention. I do not appreciate thyromegaly or carotid bruit. Mucous membranes are moist. Conjunctivae pink. LUNGS: Lung cordova scattered rhonchi. HEART: Revealed obscured cardiac S1, S2, possible systolic murmur along the left sternal border. ABDOMEN: Soft. Bowel sounds present. No mass, organomegaly, tenderness, rebound, guarding. EXTREMITIES: Revealed no cyanosis, clubbing, edema. NEUROLOGICAL: Sedated. SKIN: Warm and dry. No rash or cellulitis. LABORATORY AND IMAGING: EKG demonstrates sinus rhythm, ST-T wave changes consistent with ischemia, possible inferior wall SD, intraventricular conduction delay. A CT scan of the head is noted. Findings concerning global hypoxic ischemic injury, etc. A portable chest x-ray revealed mild pulmonary vascular congestion, no definite infiltrate. ET and nasogastric tubes in position. Followup chest x-ray revealed increasing airspace disease. White count 19,000, hemoglobin 15.6, hematocrit is 45.9, platelet count normal. PT/INR and PTT unremarkable. D-dimer is 6693. Blood gases are noted. Sodium 149, potassium 4.8, BUN 14, creatinine 1.3, blood sugar 270 and 302, magnesium 2.3, elevated LFT's. Troponin 0.73, thyroid function is normal. Urinalysis is noted. IMPRESSION: Hung Armenta is a 57-year-old man with known coronary artery disease, myocardial infarction, remote coronary bypass surgery with no recent cardiology followup, he was found with agonal respirations in the [employer] by his . He was resuscitated in the field and brought to the emergency room, intubated and currently hemodynamically stable. PLAN: He will be on a Code chill protocol. He will be in the Intensive Care Unit. He will have a pulmonary evaluation. He is getting amiodarone IV. He has been cultured. He is getting antibiotics. He is getting a bicarb drip. He is on propofol. He is under the care of the parking control officer. He is on a milrinone drip, nitroglycerin drip, nitro paste, and heparin. There is an ID consultation, a Neuro consultation. An echocardiogram has been ordered. I have spoken with his at the bedside. I will follow along with you, I will make additional recommendations based on his clinical course. Jus Flores MD [facility]
[2018-02-04 17:35] LABS: BASO # 0.02 K/mm3 (0.0-2.0); BASO % 0.1 % (0.0-3.0); HEMOGLOBIN 16.7 g/dL (14.0-18.0); MEAN CORPUSCULAR HEMOGLOBIN 29.9 pg (25.0-35.0); MEAN CORPUSCULAR HGB CONC 34.7 g/dl (31.0-37.0); MEAN PLATELET VOLUME 10.4 fl (7.0-11.0); PLATELET COUNT 226 10^3/uL (120.0-450.0); RBC 5.59 10^6/uL (3.5-6.1); RED CELL DISTRIBUTION WIDTH 13.9 % (11.5-14.5)
[2018-02-04 17:36] LABS: WHITE BLOOD COUNT 29.8 10^3/ul (4.5-11.0)
[2018-02-04 17:45] LABS: ALB/GLOB RATIO 1.2 (1.1-1.8); ALBUMIN 3.2 g/dL (3.0-4.8); ALT/SGPT 149 U/L (7-56); AST/SGOT 270 U/L (17-59); BLOOD UREA NITROGEN 17 mg/dL (7-21); CALCIUM 6.6 mg/dL (8.4-10.5); GFR AFRICAN-AMERICAN > 60; GFR NON-AFRICAN AMERICAN 57
[2018-02-04] MEDS: Insulin Reg-LOW-Coverage SC SCH (18:03)
--- NOTE | 2018-02-04 18:31 | CARD ---
APPROVED REPORT EKG Measurement Heart [id number] MT [id number] <Conclusion> Normal sinus rhythm ST & T wave abnormality c/w ischemia Prolonged QT
[2018-02-04 19:10] LABS: INR 1.23 (0.93-1.08); PROTHROMBIN TIME 14.1 SECONDS (9.4-12.5)
[2018-02-04] MEDS: Albuterol-Ipratrop 3 mg / 0.5 (3 ml) UD IH SCH ×2 (20:45→20:58)
[2018-02-05 00:32] LABS: ARTERIAL BLOOD GAS HCO3 20.2 mmol/L (21-28); ARTERIAL BLOOD GAS O2 SAT 95.5 % (95-98); ARTERIAL BLOOD GAS PCO2 53 mm/Hg (35-45); ARTERIAL BLOOD GAS TCO2 21.8 mmol.L (22-28)
[2018-02-05] MEDS: Insulin Reg-LOW-Coverage SC SCH ×2 (00:44→06:51)
[2018-02-05 00:58] LABS: ALB/GLOB RATIO 1.3 (1.1-1.8); ALBUMIN 3.5 g/dL (3.0-4.8); ALT/SGPT 133 U/L (7-56); AST/SGOT 153 U/L (17-59); BLOOD UREA NITROGEN 17 mg/dL (7-21); CALCIUM 6.7 mg/dL (8.4-10.5); GFR AFRICAN-AMERICAN > 60; GFR NON-AFRICAN AMERICAN > 60
[2018-02-05 00:59] LABS: ARTERIAL BLOOD GAS PH 7.19 (7.35-7.45)
[2018-02-05] MEDS: Pantoprazole 40mg/100mL NS 40 MG/100 ML BAG IVPB SCH ×5 (01:21→20:06)
[2018-02-05] MEDS: Albuterol-Ipratrop 3 mg / 0.5 (3 ml) UD IH SCH ×4 (01:34→11:56)
[2018-02-05 01:53] LABS: INR 1.26 (0.93-1.08); PROTHROMBIN TIME 14.4 SECONDS (9.4-12.5)
[2018-02-05 01:54] LABS: PARTIAL THROMBOPLASTIN TIME > 400.0 Seconds (25.1-36.5)
[2018-02-05] MEDS: Amiodarone 360 mg/D5W 200 ml 360 MG/200 ML BAG IV SCH (05:00)
[2018-02-05] MEDS: Propofol 10 mg/ml 1,000 MG/100 ML VIAL IV PRN ×3 (05:00→22:08)
[2018-02-05] MEDS: Milrinone 20mg/100ml D5W 100 ML IV PRN ×3 (06:14→23:52)
[2018-02-05 06:47] LABS: BASO # 0.01 K/mm3 (0.0-2.0); GRAN # 23.36 (1.4-6.5); HEMOGLOBIN 15.5 g/dL (14.0-18.0); LYMPH # 1.5 (1.2-3.4); LYMPH % 5.7 % (22.0-35.0); MEAN CELL VOLUME 84.8 fl (80.0-105.0); MEAN CORPUSCULAR HEMOGLOBIN 29.1 pg (25.0-35.0); MEAN CORPUSCULAR HGB CONC 34.4 g/dl (31.0-37.0); MEAN PLATELET VOLUME 10.5 fl (7.0-11.0); MONO # 1.7 (0.1-0.6); MONO % 6.3 % (1.0-6.0); RBC 5.32 10^6/uL (3.5-6.1); RED CELL DISTRIBUTION WIDTH 13.9 % (11.5-14.5)
[2018-02-05] MEDS: Heparin25000 units/250ml 1/2NS 25,000 UNITS/250 ML BAG IV SCH (06:51)
[2018-02-05 06:55] LABS: ARTERIAL BLOOD GAS HCO3 20.8 mmol/L (21-28); ARTERIAL BLOOD GAS O2 SAT 98.4 % (95-98); ARTERIAL BLOOD GAS PCO2 52 mm/Hg (35-45); ARTERIAL BLOOD GAS PH 7.21 (7.35-7.45); ARTERIAL BLOOD GAS TCO2 22.4 mmol.L (22-28)
[2018-02-05 06:59] LABS: VENOUS BLOOD GAS BASE EXCESS -7.1 mmol/L (0.0-2.0); VENOUS BLOOD GAS PO2 132 mm/Hg (30-55); VENOUS BLOOD PH 7.22 (7.32-7.43)
[2018-02-05 07:05] LABS: WHITE BLOOD COUNT 26.6 10^3/ul (4.5-11.0)
[2018-02-05 07:20] LABS: ALB/GLOB RATIO 1.3 (1.1-1.8); ALBUMIN 3.6 g/dL (3.0-4.8); ALT/SGPT 130 U/L (7-56); AST/SGOT 124 U/L (17-59); BLOOD UREA NITROGEN 18 mg/dL (7-21); CALCIUM 6.8 mg/dL (8.4-10.5); GFR AFRICAN-AMERICAN > 60; GFR NON-AFRICAN AMERICAN > 60
--- NOTE | 2018-02-05 08:11 | CON ---
DATE: 02/04/2018 HISTORY OF PRESENT ILLNESS: This is a 57-year-old gentleman with history of hypertension, coronary artery disease status post CABG and four stents, hypothyroidism who presented to [facility] ER after cardiac arrest. He was intubated outside the hospital. As per at the bedside, it appears that the patient woke up around 3:00 in the morning and was complaining on difficulty breathing. Soon he became unresponsive and she called EMS. She started CPR almost immediately and upon arrival, emergency responders continued CPR. According to at bedside, he had a shockable rhythm and he was shocked several times when v-fib identified on AED. Two rounds of epinephrine were given at that time. It appears that the patient achieved ROSC pretty fast within 10 or so minutes. No nausea, no vomiting, no diarrhea, no constipation. In fact, presentation was read as acute. PAST MEDICAL HISTORY: Hypertension, coronary artery disease, hypothyroidism. PAST SURGICAL HISTORY: CABG. ALLERGIES: NKDA. SOCIAL HISTORY: Patient is an active smoker and smoked 6-okjk-g-day for 40 years. No alcohol or illicit drug abuse. He works as a corporate security manager. FAMILY HISTORY: Noncontributory. HOME MEDICATIONS: Aspirin, metoprolol, and levothyroxine. REVIEW OF SYSTEMS: Review of 12-organ system other than mentioned in the history of present illness is negative. PHYSICAL EXAMINATION: GENERAL: Patient is on milrinone right now. VITAL SIGNS: His blood pressure is 115//70, heart rate 85, oxygen saturation 92% on FiO2 of 80% (down from 100%, PEEP 18). Patient is on PRVC. Respiratory rate was increased to increase minute ventilation from 28 to 35 as pH remains 7.05 with significant respiratory component. Also with peak pressure appears to be much higher than the plateau pressure and patient slightly wheezing on physical exam, continuous treatment x3 with Xopenex was provided. Tidal volume was adjusted to 6 mL per predicted body weight and respiratory rate was increased as mentioned above. HEENT: Head and neck atraumatic. LUNGS: A few wheezes bilaterally. A few rales bilaterally. HEART: Regular rate and rhythm. S1, S2 normal. ABDOMEN: Soft, nontender, and nondistended. MUSCULOSKELETAL: Trace bilateral pedal and ankle edema. NEUROLOGIC: Patient is sedated and on neuromuscular blockade to avoid shivering and improve ventilator synchrony. SKIN: Moist. PSYCHIATRIC: Patient is on neuromuscular blockade at the present time. LABORATORY DATA: WBC 31.1, hemoglobin 17.6, platelet count 215. CMP is reviewed AB.06, PCO2 of 76. Sodium 142. Bicarb drip was started before ICU transfer and then increased to compensate for hypothermic fluid losses. However, his ABG showed significant respirary acidosis and bicarb was switched to NS (to avoid increased c02 conversion). MEDICATIONS: Sodium bicarb, amiodarone drip, aspirin, Lipitor, Nimbex, heparin drip, cefepime, milrinone, propofol, Protonix. Chest x-ray, bilateral fluffy infiltrates; however improved pattern of pulmonary edema. No pneumothorax. Right internal jugular line is in the SVC, just below the clavicle. Echocardiogram preliminary report, preliminary review revealed severely depressed left ventricular systolic function. Head CT showed findings concerning for global hypoxic-ischemic injury. ASSESSMENT AND PLAN: This 57-year-old gentleman with ACS complicated by cardiac arrest, cardiogenic shock with MODS, including hypoxemic brain injury, transaminitis, hypoxemic respiratory failure/cardiogenic pulmonary edema, severe LV systolic heart failure, VANESA Neuro: At the present time, patient is undergoing therapeutic hypothermia. We will maintain body temperature 32 to 36 degree Fahrenheit. Patient is on propofol and neuromuscular blockade to avoid shivering and to improve patient's ventilator synchrony. Patient is on BIS and train of 4 for monitoring sedation and NMB status. EEG done-->no seizures. CTH: poorly defined white/vasquez matter differentiation, concerning for hypoxic brain injury. Neuro is on board Pulmonary: Patient is on 6 mL per predicted body weight and plateau pressure is above 24 to 28. We will continue with head of bed elevated at >35 degrees and oral hygiene. We will use slightly higher PEEP:FiO2 ratio. Bicarb switched to NS due to concern for increased C02 convertion/ production and RR increased to 38. Renal consult called to consider HD to alleviate burden of acidosis. We will continue with conservative fluid and oxygen management (however supplement fluid losses linked to hypothermia autodiuresis). We will start gradual warming after 24 hours of initial hypothermia. Cardiovascular: Patient is in cardiogenic shock. Preliminary echocardiogram report reveals severely depressed left ventricular systolic function, pending official report. Patient is on milrinone, amiodarone drip, heparin drip. We will aggressively supplement electrolytes. Levophed was added as BP started trending down-->low threshold for aborting hypothermia protocol if hemodynamics deteriorates. Echo: LV severely depressed systolic function Gastrointestinal: Patient will be n.p.o. and on GI prophylaxis though is appeared to be coffee-ground discharge from the NG tube. We will start Protonix drip and we will get GI involved. Renal: Patient has acute kidney injury. We will maintain mean arterial pressure more than 65, avoid hyperchloremia and nephrotoxins. We will maintain euvolemia and euglycemia. ID: Patient have leukocytosis, on broad-spectrum antibiotics and ID service is following him as well. Blood and urine culture as well as procalcitonin will be ordered. Endocrine. We will maintain blood glucose between 140 to 180 range according to NICE-SUGAR trial. stress dose steroids were ordered ccm time 40 min Anderson Soto MD [id number]
--- NOTE | 2018-02-05 08:20 | CP.PCM.PN ---
Subjective - Date & Time of Evaluation Date of Evaluation: 02/05/18 Time of Evaluation: 07:00 - Subjective Subjective: Stable in CCU. I spoke with his bedside nurse and his at the bedside. I spoke with Dr. Soto yesterday. Sedated. Chilled. Sinus Tachy. V/S noted. PE: lungs: rhonchi Cor.: S1S2 Abd.: soft Ext. mild edema Neuro.: sedated I/O= [id number] Labs noted: WBC= 26,600, PTT > 400, K+= 4.5 BC X2 NG at 24 hrs. ECG: S. tachy., STTW changes CXR: CHF-my reading. Objective - Vital Signs/Intake and Output Vital Signs (last 24 hours): Temp Pulse Resp BP Pulse Ox 96.1 F L 99 H 35 H 114/71 100 02/05/18 06:00 02/05/18 07:29 02/04/18 14:56 02/05/18 07:30 02/05/18 07:29 Intake and Output: 02/05/18 02/05/18 06:59 18:59 Intake Total 449 1700 Output Total 500 Balance 449 1200 - Medications Medications: Current Medications Albuterol/Ipratropium (Duoneb 3 Mg/0.5 Mg (3 Ml) Ud) 3 ml IH [id number] [facility] Last Admin: 02/05/18 04:25 Dose: 3 ml Artificial Tears (Artificial Tears) 0 ml OU Q8 PRN PRN Reason: Dry eyes Last Admin: 02/04/18 16:36 Dose: 1 drop Aspirin (Aspirin Chewable) 81 mg PO DAILY [facility] Last Admin: 02/04/18 12:56 Dose: Not Given Atorvastatin Calcium (Lipitor) 40 mg PO DIN [facility] Last Admin: 02/04/18 17:16 Dose: Not Given Hydrocortisone Sodium Succinate (Solu-Cortef) 50 mg IVP Q6 [facility] Last Admin: 02/05/18 06:25 Dose: 50 mg Propofol (Diprivan) 1,000 mg in 100 mls @ 3.538 mls/hr IV .Q24H PRN; Protocol; 5 MCG/KG/MIN PRN Reason: TITRATE PER MD ORDER Last Admin: 02/05/18 05:00 Dose: 10 mcg/kg/min, 7.076 mls/hr Cefepime HCl (Maxipime 2gm) 2 gm in 100 mls @ 100 mls/hr IVPB Q12 DAMON PRN Reason: Protocol Stop: 02/09/18 10:01 Last Admin: 02/04/18 21:15 Dose: 100 mls/hr Pantoprazole Sodium (Protonix 40mg Ivpb) 40 mg in 100 mls @ 20 mls/hr IVPB .Q5H DAMON Last Admin: 02/05/18 06:16 Dose: 20 mls/hr Milrinone Lactate/Dextrose (Primacor 20mg/100ml D5w) 100 mls @ 13.268 mls/hr IV .Q7H33M PRN; Protocol; 0.375 MCG/KG/MIN PRN Reason: TITRATE PER MD ORDER Last Admin: 02/05/18 06:14 Dose: 0.2 mcg/kg/min, 7.076 mls/hr Cisatracurium Besylate 200 mg/ (Sodium Chloride) 270 mls @ 9.55 mls/hr IV .Q24H PRN; Protocol; 1 MCG/KG/MIN PRN Reason: TITRATE PER MD ORDER Last Titration: 02/04/18 19:00 Dose: 1 mcg/kg/min, 9.55 mls/hr Heparin Sodium/Sodium Chloride (Heparin 73633 Units/250ml 1/2 Normal Saline) 25 ,000 units in 250 mls @ 14.152 mls/hr IV .[id number] DAMON; 12 UNITS/KG/HR PRN Reason: Protocol Last Admin: 02/05/18 06:51 Dose: 12 units/kg/hr, 14.152 mls/hr Levetiracetam 750 mg/ Sodium (Chloride) 107.5 mls @ 430 mls/hr IV Q12 DAMON Last Admin: 02/04/18 21:17 Dose: 430 mls/hr Sodium Chloride (Sodium Chloride 0.9%) 1,000 mls @ 100 mls/hr IV .Q10H DAMON Last Admin: 02/04/18 13:30 Dose: 100 mls/hr NOREPINEPHRINE BIT/0.9 % NACL (Levophed 4 Mg/ 250 Ml Ns Premixed) 4 mg in 250 mls @ 15 mls/hr IV .[id number] PRN; Protocol; 4 MCG/MIN PRN Reason: TITRATE PER MD ORDER Last Titration: 02/04/18 18:00 Dose: 0 mcg/min, 0 mls/hr Amiodarone HCl/Dextrose (Nexterone 360 Mg In D5w 200 Ml (Premix)) 360 mg in 200 mls @ 16.667 mls/hr IV .Q12H DAMON PRN Reason: 0.5 MG/MIN Last Admin: 02/05/18 05:00 Dose: 16.667 mls/hr Calcium Gluconate 2,000 mg/ (Sodium Chloride) 120 mls @ 110 mls/hr IVPB ONCE ONE Stop: 02/05/18 08:37 Insulin Human Regular (Humulin R Low) 0 units SC Q6 DAMON PRN Reason: Protocol Last Admin: 02/05/18 06:51 Dose: Not Given Levalbuterol HCl (Xopenex) 0.63 mg IH [id number] PRN PRN Reason: Shortness of Breath Last Admin: 02/04/18 13:10 Dose: 0.63 mg - Labs Labs: 02/05/18 06:00 02/05/18 06:00 PT 14.4 SECONDS (9.4-12.5) H 02/05/18 01:20 INR 1.26 (0.93-1.08) H 02/05/18 01:20 APTT > 400.0 Seconds (25.1-36.5) H* 02/05/18 01:20 Assessment and Plan - Assessment and Plan (Free Text) Assessment: Cardiac arrest at home Acute WI/CHF/S/P resuscitation in the field Anoxic encephalopathy CAD/WI/Remote CABG/No regular cardiac f/u HBP Hypothyroidism Smoker Plan: Pulm Consultation/Vent. management Hold heparin and recheck PTT in 2 - 3 hrs. > titrate heparin drip Will check echo> prelim.> severe LVD IV Lasix/Diurese As per Neuro., GI, Renal, Intensivists Monitor: labs, trops, I/O, sats., ABGs, CXRs, neuro status, etc Will follow.
[2018-02-05] MEDS: Aritificial Tears (15ml) OU PRN ×2 (08:39→17:11)
[2018-02-05] MEDS: Cefepime IV 2 gm in NS 2 GM/100 ML BAG IVPB SCH ×2 (09:22→22:05)
[2018-02-05 09:23] LABS: INR 1.32 (0.93-1.08); PROTHROMBIN TIME 15.3 SECONDS (9.4-12.5)
[2018-02-05 09:36] LABS: PARTIAL THROMBOPLASTIN TIME 195.6 Seconds (25.1-36.5)
--- NOTE | 2018-02-05 10:17 | RAD ---
HISTORY: intubated COMPARISON: 02/04/2018 FINDINGS: LUNGS: There is slight improvement in the right lower lobe infiltrate. Central lines and tubes remain in satisfactory position PLEURA: No significant pleural effusion identified, no pneumothorax apparent. CARDIOVASCULAR: Normal. OSSEOUS STRUCTURES: No significant abnormalities. VISUALIZED UPPER ABDOMEN: Normal. OTHER FINDINGS: None. IMPRESSION: There is slight improvement in the right lower lobe infiltrate. Central lines and tubes remain in satisfactory position
--- NOTE | 2018-02-05 10:39 | CARD ---
APPROVED REPORT EXAM: Two-dimensional and M-mode echocardiogram with Doppler and color Doppler. Other Information Quality : FairRhythm : INDICATION CARDIAC ARREST 2D DIMENSIONS Left Atrium (2D)3.5 (1.6-4.0cm)IVSd1.2 (0.7-1.1cm) LVDd4.8 (3.9-5.9cm)PWd1.2 (0.7-1.1cm) LVDs4.3 (2.5-4.0cm)FS (%) 10.5 % LVEF (%)23.0 (>50%) M-Mode DIMENSIONS Aortic Root2.70 (2.2-3.7cm)Aortic Cusp Exc.1.70 (1.5-2.0cm) Aortic Valve AoV Peak Wroajibq631.0cm/s Mitral Valve E/A ratio0.0 TDI E/Lateral E'0.0E/Medial E'0.0 Tricuspid Valve TR Peak [id number] [id number] Peak Gr.4mmHg [id number] LEFT VENTRICLE The left ventricle is normal size. There is normal left ventricular wall thickness. Left ventricle systolic function is severely impaired. The Ejection Fraction is - 20 - 25% The septum and apex are severely hypokinetic. RIGHT VENTRICLE The right ventricle is normal size. ATRIA The left atrium size is normal. The right atrium size is normal. The interatrial septum is intact with no evidence for an atrial septal defect. AORTIC VALVE The aortic valve is normal in structure. MITRAL VALVE The mitral valve is normal in structure. TRICUSPID VALVE The tricuspid valve is normal in structure. PULMONIC VALVE The pulmonic valve is not well visualized. GREAT VESSELS The aortic root is normal in size. PERICARDIAL EFFUSION There is no pericardial effusion. <Conclusion> This is a limited study done in the ICU. The left ventricle is normal size. There is normal left ventricular wall thickness. Left ventricle systolic function is severely impaired. The Ejection Fraction is - 20 - 25% The septum and apex are severely hypokinetic.
--- NOTE | 2018-02-05 10:53 | CP.PCM.PN ---
<Shiva Burt - Last Filed: 02/05/18 15:49> Subjective - Date & Time of Evaluation Date of Evaluation: 02/05/18 Time of Evaluation: 10:50 - Subjective Subjective: Patient seen and examined at bedside. Patient currently intubated and sedated. Will undergo another EEG and CT head. Currently undergoing re-warming protocol. ROS not obtained due to intubation and sedation. Objective - Vital Signs/Intake and Output Vital Signs (last 24 hours): Temp Pulse Resp BP Pulse Ox 96.1 F L 115 H 35 H 135/87 99 02/05/18 06:00 02/05/18 09:00 02/04/18 14:56 02/05/18 08:15 02/05/18 09:00 Intake and Output: 02/05/18 02/05/18 06:59 18:59 Intake Total 449 1714 Output Total 500 Balance 449 1214 - Medications Medications: Current Medications Albuterol/Ipratropium (Duoneb 3 Mg/0.5 Mg (3 Ml) Ud) 3 ml IH [id number] [facility] Last Admin: 02/05/18 08:12 Dose: 3 ml Artificial Tears (Artificial Tears) 0 ml OU Q8 PRN PRN Reason: Dry eyes Last Admin: 02/05/18 08:39 Dose: 1 drop Aspirin (Aspirin Chewable) 81 mg PO DAILY [facility] Last Admin: 02/05/18 09:21 Dose: Not Given Atorvastatin Calcium (Lipitor) 40 mg PO DIN [facility] Last Admin: 02/04/18 17:16 Dose: Not Given Hydrocortisone Sodium Succinate (Solu-Cortef) 50 mg IVP Q6 [facility] Last Admin: 02/05/18 06:25 Dose: 50 mg Propofol (Diprivan) 1,000 mg in 100 mls @ 3.538 mls/hr IV .Q24H PRN; Protocol; 5 MCG/KG/MIN PRN Reason: TITRATE PER MD ORDER Last Admin: 02/05/18 05:00 Dose: 10 mcg/kg/min, 7.076 mls/hr Cefepime HCl (Maxipime 2gm) 2 gm in 100 mls @ 100 mls/hr IVPB Q12 DAMON PRN Reason: Protocol Stop: 02/09/18 10:01 Last Admin: 02/05/18 09:22 Dose: 100 mls/hr Pantoprazole Sodium (Protonix 40mg Ivpb) 40 mg in 100 mls @ 20 mls/hr IVPB .Q5H [facility] Last Admin: 02/05/18 09:18 Dose: 20 mls/hr Milrinone Lactate/Dextrose (Primacor 20mg/100ml D5w) 100 mls @ 13.268 mls/hr IV .Q7H33M PRN; Protocol; 0.375 MCG/KG/MIN PRN Reason: TITRATE PER MD ORDER Last Titration: 02/05/18 08:31 Dose: 0.375 mcg/kg/min, 13.268 mls/hr Cisatracurium Besylate 200 mg/ (Sodium Chloride) 270 mls @ 9.55 mls/hr IV .Q24H PRN; Protocol; 1 MCG/KG/MIN PRN Reason: TITRATE PER MD ORDER Last Titration: 02/04/18 19:00 Dose: 1 mcg/kg/min, 9.55 mls/hr Heparin Sodium/Sodium Chloride (Heparin 51700 Units/250ml 1/2 Normal Saline) 25 ,000 units in 250 mls @ 14.152 mls/hr IV .[id number] DAMON; 12 UNITS/KG/HR PRN Reason: Protocol Last Admin: 02/05/18 06:51 Dose: 12 units/kg/hr, 14.152 mls/hr Levetiracetam 750 mg/ Sodium (Chloride) 107.5 mls @ 430 mls/hr IV Q12 DAMON Last Admin: 02/05/18 10:25 Dose: 430 mls/hr NOREPINEPHRINE BIT/0.9 % NACL (Levophed 4 Mg/ 250 Ml Ns Premixed) 4 mg in 250 mls @ 15 mls/hr IV .[id number] PRN; Protocol; 4 MCG/MIN PRN Reason: TITRATE PER MD ORDER Last Titration: 02/04/18 18:00 Dose: 0 mcg/min, 0 mls/hr Amiodarone HCl/Dextrose (Nexterone 360 Mg In D5w 200 Ml (Premix)) 360 mg in 200 mls @ 16.667 mls/hr IV .Q12H DAMON PRN Reason: 0.5 MG/MIN Last Admin: 02/05/18 05:00 Dose: 16.667 mls/hr Insulin Human Regular (Humulin R Med) 0 units SC Q6 [facility]ON PRN Reason: Protocol Levalbuterol HCl (Xopenex) 0.63 mg IH [id number] PRN PRN Reason: Shortness of Breath Last Admin: 02/04/18 13:10 Dose: 0.63 mg - Labs Labs: 02/05/18 06:00 02/05/18 06:00 PT 15.3 SECONDS (9.4-12.5) H 02/05/18 09:00 INR 1.32 (0.93-1.08) H 02/05/18 09:00 APTT 195.6 Seconds (25.1-36.5) H* 02/05/18 09:00 - Constitutional Appears: Other (Sedated and intubated) - Head Exam Head Exam: ATRAUMATIC, NORMAL INSPECTION, NORMOCEPHALIC - ENT Exam ENT Exam: Mucous Membranes Moist - Respiratory Exam Respiratory Exam: Rhonchi (diffuse) - Cardiovascular Exam Cardiovascular Exam: REGULAR RHYTHM, +S1, +S2 - GI/Abdominal Exam GI & Abdominal Exam: Soft, Normal Bowel Sounds - Neurological Exam Neurological Exam: absent: Awake Additional comments: sedated - Psychiatric Exam Psychiatric exam: Normal Affect, Normal Mood - Skin Skin Exam: Normal Color, Warm Assessment and Plan - Assessment and Plan (Free Text) Assessment: 57 year old male with history of CAD s/p CABG and 4 stents, hypertension, thyroid disease, and tobacco abuse presenting s/p cardiac arrest secondary to a cardiac event (possible posterior wall infarct) presenting with cardiogenic shock and anoxic encephalopathy. S/P cardiac arrest secondary to possible ischemic cardiac event found to be in ventricular fibrillation -EKG reveals ST-T segments findings consistent with ischemia, possible inferior wall WI, intraventricular conduction delay evidenced by EKG and cardiac enzyme elevation -Echocardiogram reveals EF 20-25% with septum and apex sevely hypokinetic. Left ventricular systolic function severely impaired -Currently undergoing Code freeze protocol; rewarming phase -Continue with Milrinone and amiodarone -PTT elevated;hold heparin and repeat PTT, then titrate heparin drip. Hypercapnic respiratory failure -Patient intubated and sedated with ventilation on PRVC. -Continue with management of vent settings per ID -Continue with xopenex treatments Anoxic encephalopathy secondary to cardiac arrest -Code freeze protocol -Neurology consulted -CT head reveals findings concerning for global hypoxic ischemic injury. -EEG reveals very low amplitude rhythm with no normal posterior dominant rhythm. No interictal epileptiform discharges. No seuzire. EEG is abnormal. Leukocytosis -ID consulted -Continue with broad spectrum antibiotics -Follow up with blood cutlures: no growth after 24 hours -Urine culture final resulted in no growth Possible Lower GI bleed -Noted through patient's NG tube -GI on consult; f/u with recommendations <Rakesh Fallon - Last Filed: 02/05/18 16:29> Objective - Vital Signs/Intake and Output Vital Signs (last 24 hours): Temp Pulse Resp BP Pulse Ox 96.1 F L 105 H 38 H 140/74 96 02/05/18 06:00 02/05/18 15:20 02/05/18 10:00 02/05/18 15:00 02/05/18 15:20 Intake and Output: 02/05/18 02/05/18 06:59 18:59 Intake Total 449 1931 Output Total 500 Balance 449 1431 - Medications Medications: Current Medications Albuterol/Ipratropium (Duoneb 3 Mg/0.5 Mg (3 Ml) Ud) 3 ml IH [id number] PRN PRN Reason: Shortness of Breath Artificial Tears (Artificial Tears) 0 ml OU Q8 PRN PRN Reason: Dry eyes Last Admin: 02/05/18 08:39 Dose: 1 drop Aspirin (Aspirin Chewable) 81 mg PO DAILY [facility] Last Admin: 02/05/18 09:21 Dose: Not Given Atorvastatin Calcium (Lipitor) 40 mg PO DIN [facility] Last Admin: 02/04/18 17:16 Dose: Not Given Hydrocortisone Sodium Succinate (Solu-Cortef) 50 mg IVP Q6 [facility] Last Admin: 02/05/18 12:38 Dose: 50 mg Propofol (Diprivan) 1,000 mg in 100 mls @ 3.538 mls/hr IV .Q24H PRN; Protocol; 5 MCG/KG/MIN PRN Reason: TITRATE PER MD ORDER Last Admin: 02/05/18 15:36 Dose: 10 mcg/kg/min, 7.076 mls/hr Cefepime HCl (Maxipime 2gm) 2 gm in 100 mls @ 100 mls/hr IVPB Q12 [facility]ON PRN Reason: Protocol Stop: 02/09/18 10:01 Last Admin: 02/05/18 09:22 Dose: 100 mls/hr Pantoprazole Sodium (Protonix 40mg Ivpb) 40 mg in 100 mls @ 20 mls/hr IVPB .Q5H [facility] Last Admin: 02/05/18 14:44 Dose: 20 mls/hr Milrinone Lactate/Dextrose (Primacor 20mg/100ml D5w) 100 mls @ 13.268 mls/hr IV .Q7H33M PRN; Protocol; 0.375 MCG/KG/MIN PRN Reason: TITRATE PER MD ORDER Last Admin: 02/05/18 15:29 Dose: 0.375 mcg/kg/min, 13.268 mls/hr Cisatracurium Besylate 200 mg/ (Sodium Chloride) 270 mls @ 9.55 mls/hr IV .Q24H PRN; Protocol; 1 MCG/KG/MIN PRN Reason: TITRATE PER MD ORDER Last Titration: 02/04/18 19:00 Dose: 1 mcg/kg/min, 9.55 mls/hr Heparin Sodium/Sodium Chloride (Heparin 75307 Units/250ml 1/2 Normal Saline) 25 ,000 units in 250 mls @ 14.152 mls/hr IV .[id number] [facility]ON; 12 UNITS/KG/HR PRN Reason: Protocol Last Titration: 02/05/18 11:30 Dose: 6 units/kg/hr, 7.076 mls/hr Levetiracetam 750 mg/ Sodium (Chloride) 107.5 mls @ 430 mls/hr IV Q12 [facility]ON Last Admin: 02/05/18 10:25 Dose: 430 mls/hr NOREPINEPHRINE BIT/0.9 % NACL (Levophed 4 Mg/ 250 Ml Ns Premixed) 4 mg in 250 mls @ 15 mls/hr IV .[id number] PRN; Protocol; 4 MCG/MIN PRN Reason: TITRATE PER MD ORDER Last Titration: 02/04/18 18:00 Dose: 0 mcg/min, 0 mls/hr Amiodarone HCl/Dextrose (Nexterone 360 Mg In D5w 200 Ml (Premix)) 360 mg in 200 mls @ 16.667 mls/hr IV .Q12H [facility]ON PRN Reason: 0.5 MG/MIN Last Admin: 02/05/18 05:00 Dose: 16.667 mls/hr Insulin Human Regular (Humulin R Med) 0 units SC Q6 [facility]ON PRN Reason: Protocol Last Admin: 02/05/18 12:34 Dose: 3 units - Labs Labs: 02/05/18 15:24 02/05/18 15:24 PT 15.3 SECONDS (9.4-12.5) H 02/05/18 09:00 INR 1.32 (0.93-1.08) H 02/05/18 09:00 APTT 195.6 Seconds (25.1-36.5) H* 02/05/18 09:00 Attending/Attestation - Attestation I have personally seen and examined this patient.: Yes I have fully participated in the care of the patient.: Yes I have reviewed all pertinent clinical information, including history, physical exam and plan: Yes Notes (Text): 02/05/18 16:23 57 year old male with past medical history of CAD s/p CABG, hypertension and tobacco use who presented s/p cardiac arrest. CODE FREEZE initiated. CT head showed signs of global hypoxic injury. EEG was reviewed and repeat EEG is ordered. Neurology is following. He was also found to have elevated cardiac enzymes likely ischemic event. Echocardiogram was reviewed. He is on aspirin, statin, milrinone, amiodarone and heparin drip. Cardiology is following. Continue with vent management as per steam trap man. GI evaluation was requested for elevated LFTs and possible GIB. He is on broad spectrum antibiotics for leukocytosis. ID is following. Overall prognosis is poor. Family is at bedside and questions were answered. Rakesh Fallon MD Hospitalist.
--- NOTE | 2018-02-05 11:30 | CARD ---
APPROVED REPORT EKG Measurement Heart [id number] <Conclusion> Sinus tachycardia PVC Nonspecific ST and T wave abnormality Prolonged QTc No change
[2018-02-05 11:42] LABS: VENOUS BLOOD GAS BASE EXCESS -4.9 mmol/L (0.0-2.0); VENOUS BLOOD GAS PO2 83 mm/Hg (30-55); VENOUS BLOOD PH 7.24 (7.32-7.43)
--- NOTE | 2018-02-05 12:20 | CP.PCM.PN ---
Subjective - Date & Time of Evaluation Date of Evaluation: 02/05/18 Time of Evaluation: 12:17 - Subjective Subjective: Mr. Armenta was seen and examined at the bedside in ICU. He remains on mechanical ventilator on PRVC mode. He is currently receiving propofol, midazolam and Nimbex for sedation with pupils pinpoint and no corneal and gag reflex. At present , the patient on re-warming stage of code-freeze. He is also receiving a vasopressor and anti-arrhythmia. There was no untoward events overnight. Objective - Vital Signs/Intake and Output Vital Signs (last 24 hours): Temp Pulse Resp BP Pulse Ox 96.1 F L 115 H 38 H 135/87 99 02/05/18 06:00 02/05/18 09:00 02/05/18 10:00 02/05/18 08:15 02/05/18 09:00 Intake and Output: 02/05/18 02/05/18 06:59 18:59 Intake Total 449 1714 Output Total 500 Balance 449 1214 - Medications Medications: Current Medications Albuterol/Ipratropium (Duoneb 3 Mg/0.5 Mg (3 Ml) Ud) 3 ml IH [id number] [facility] Last Admin: 02/05/18 11:56 Dose: 3 ml Artificial Tears (Artificial Tears) 0 ml OU Q8 PRN PRN Reason: Dry eyes Last Admin: 02/05/18 08:39 Dose: 1 drop Aspirin (Aspirin Chewable) 81 mg PO DAILY [facility] Last Admin: 02/05/18 09:21 Dose: Not Given Atorvastatin Calcium (Lipitor) 40 mg PO DIN [facility] Last Admin: 02/04/18 17:16 Dose: Not Given Hydrocortisone Sodium Succinate (Solu-Cortef) 50 mg IVP Q6 [facility] Last Admin: 02/05/18 06:25 Dose: 50 mg Propofol (Diprivan) 1,000 mg in 100 mls @ 3.538 mls/hr IV .Q24H PRN; Protocol; 5 MCG/KG/MIN PRN Reason: TITRATE PER MD ORDER Last Admin: 02/05/18 05:00 Dose: 10 mcg/kg/min, 7.076 mls/hr Cefepime HCl (Maxipime 2gm) 2 gm in 100 mls @ 100 mls/hr IVPB Q12 [facility]ON PRN Reason: Protocol Stop: 02/09/18 10:01 Last Admin: 02/05/18 09:22 Dose: 100 mls/hr Pantoprazole Sodium (Protonix 40mg Ivpb) 40 mg in 100 mls @ 20 mls/hr IVPB .Q5H [facility]ON Last Admin: 02/05/18 09:18 Dose: 20 mls/hr Milrinone Lactate/Dextrose (Primacor 20mg/100ml D5w) 100 mls @ 13.268 mls/hr IV .Q7H33M PRN; Protocol; 0.375 MCG/KG/MIN PRN Reason: TITRATE PER MD ORDER Last Titration: 02/05/18 08:31 Dose: 0.375 mcg/kg/min, 13.268 mls/hr Cisatracurium Besylate 200 mg/ (Sodium Chloride) 270 mls @ 9.55 mls/hr IV .Q24H PRN; Protocol; 1 MCG/KG/MIN PRN Reason: TITRATE PER MD ORDER Last Titration: 02/04/18 19:00 Dose: 1 mcg/kg/min, 9.55 mls/hr Heparin Sodium/Sodium Chloride (Heparin 63964 Units/250ml 1/2 Normal Saline) 25 ,000 units in 250 mls @ 14.152 mls/hr IV .[id number] DAMON; 12 UNITS/KG/HR PRN Reason: Protocol Last Admin: 02/05/18 06:51 Dose: 12 units/kg/hr, 14.152 mls/hr Levetiracetam 750 mg/ Sodium (Chloride) 107.5 mls @ 430 mls/hr IV Q12 DAMON Last Admin: 02/05/18 10:25 Dose: 430 mls/hr NOREPINEPHRINE BIT/0.9 % NACL (Levophed 4 Mg/ 250 Ml Ns Premixed) 4 mg in 250 mls @ 15 mls/hr IV .[id number] PRN; Protocol; 4 MCG/MIN PRN Reason: TITRATE PER MD ORDER Last Titration: 02/04/18 18:00 Dose: 0 mcg/min, 0 mls/hr Amiodarone HCl/Dextrose (Nexterone 360 Mg In D5w 200 Ml (Premix)) 360 mg in 200 mls @ 16.667 mls/hr IV .Q12H DAMON PRN Reason: 0.5 MG/MIN Last Admin: 02/05/18 05:00 Dose: 16.667 mls/hr Insulin Human Regular (Humulin R Med) 0 units SC Q6 DAMON PRN Reason: Protocol Levalbuterol HCl (Xopenex) 0.63 mg IH [id number] PRN PRN Reason: Shortness of Breath Last Admin: 02/04/18 13:10 Dose: 0.63 mg - Labs Labs: 02/05/18 06:00 02/05/18 06:00 PT 15.3 SECONDS (9.4-12.5) H 02/05/18 09:00 INR 1.32 (0.93-1.08) H 02/05/18 09:00 APTT 195.6 Seconds (25.1-36.5) H* 02/05/18 09:00 - Constitutional Appears: No Acute Distress - Head Exam Head Exam: NORMAL INSPECTION - Eye Exam Pupil Exam: Fixed - Neurological Exam Neuro motor strength exam: Left Upper Extremity: 0, Right Upper Extremity: 0, Left Lower Extremity: 0, Right Lower Extremity: 0 Additional comments: [id number] Assessment and Plan - Assessment and Plan (Free Text) Assessment: anoxic brain injury Plan: Case discussed with Dr. Whitlock, continue all current medical regimen. Recommend to repeat EEG after re-warming stage to have a accurate test. Recommend normothermic, normotensive, keep head of bed elevated at least 30 degrees.
--- NOTE | 2018-02-05 12:20 | CP.CCUPN ---
<SalomónIsaiasElisha - Last Filed: 02/05/18 14:06> CCU Subjective - Physician Review Subjective (Free Text): 02/05/18 12:12 Start rewarming now (less than 0.5 degree per hr till 98 F) No acute event overnight. Propofol 15 milrinone gtt 0.375 Amiodarino gtt should be stopped at noon now HR > [address] Soto: change dubneb PRN CCU Objective - Vital Signs / Intake & Output Vital Signs (Last 4 hours): Vital Signs Pulse Resp BP Pulse Ox 02/05/18 10:00 38 H 02/05/18 09:00 115 H 99 02/05/18 08:50 108 H 99 02/05/18 08:40 107 H 99 02/05/18 08:30 107 H 100 02/05/18 08:20 103 H 100 02/05/18 08:15 106 H 135/87 100 Intake and Output (Last 8hrs): Intake & Output 02/04/18 02/05/18 02/05/18 22:59 06:59 14:59 Intake Total 9147 409 1714 Output Total 650 500 Balance 8497 409 1214 Intake: IV 9147 409 1714 Left 1445 1500 Left Forearm 362 Right Forearm 264 200 Right Internal Jugular 6790 Output: Gastric Amount 500 500 Stomach 500 500 Urine 150 Urethral (Garcia) 150 Other: # Bowel Movements 0 - Physical Exam Head: Positive for: Atraumatic, Normocephalic Pupils: Positive for: Other (Pupils fixed bilaterally) Conjunctiva: Positive for: Normal Mouth: Positive for: Moist Mucous Membranes Respiratory/Chest: Positive for: Clear to Auscultation, Good Air Exchange ( Equal breath sounds bilaterally), Decreased Breath Sounds, Rales, Rhonchi. Negative for: Wheezes Cardiovascular: Positive for: Regular Rate and Rhythm, Normal S1, S2. Negative for: Murmurs Abdomen: Negative for: Distention, Peritoneal Signs Upper Extremity: Negative for: Cyanosis, Edema Lower Extremity: Negative for: Edema Neurological: Positive for: Normal Sensory Function (Responsive to painful stimuli but now sedated) Skin: Positive for: Warm, Dry, Normal Color. Negative for: Rashes - Medications Active Medications: Active Medications Generic Name Dose Route Start Last Admin Trade Name Freq PRN Reason Stop Dose Admin Albuterol/Ipratropium 3 ml 02/04/18 19:30 02/05/18 11:56 Duoneb 3 Mg/0.5 Mg (3 Ml) Ud IH 3 ml [id number] DAMON Administration Artificial Tears 0 ml 02/04/18 15:56 02/05/18 08:39 Artificial Tears OU 1 drop Q8 PRN Administration Dry eyes Aspirin 81 mg 02/04/18 12:30 02/05/18 09:21 Aspirin Chewable PO Not Given DAILY DAMON Atorvastatin Calcium 40 mg 02/04/18 17:00 02/04/18 17:16 Lipitor PO Not Given DIN DAMON Hydrocortisone Sodium Succinate 50 mg 02/05/18 00:00 02/05/18 06:25 Solu-Cortef IVP 50 mg Q6 DAMON Administration Propofol 1,000 mg in 100 mls @ 3.538 mls/hr 02/04/18 05:03 02/05/18 05:00 Diprivan IV 10 mcg/kg/min .Q24H PRN 7.076 mls/hr TITRATE PER MD ORDER Administration Protocol 5 MCG/KG/MIN Cefepime HCl 2 gm in 100 mls @ 100 mls/hr 02/04/18 10:00 02/05/18 09:22 Maxipime 2gm IVPB 02/09/18 10:01 100 mls/hr Q12 DAMON Administration Protocol Pantoprazole Sodium 40 mg in 100 mls @ 20 mls/hr 02/04/18 09:00 02/05/18 09: 18 Protonix 40mg Ivpb IVPB 20 mls/hr .Q5H DAMON Administration Milrinone Lactate/Dextrose 100 mls @ 13.268 mls/hr 02/04/18 08:59 02/05/18 08 :31 Primacor 20mg/100ml D5w IV 0.375 mcg/kg/min .[id number] PRN 13.268 mls/hr TITRATE PER MD ORDER Titration Protocol 0.375 MCG/KG/MIN Cisatracurium Besylate 200 mg/ 270 mls @ 9.55 mls/hr 02/04/18 09:00 02/04/18 19:00 Sodium Chloride IV 1 mcg/kg/min .Q24H PRN 9.55 mls/hr TITRATE PER MD ORDER Titration Protocol 1 MCG/KG/MIN Heparin Sodium/Sodium Chloride 25,000 units in 250 mls @ 14.152 mls/hr 09:15 02/05/18 06:51 Heparin 81563 Units/250ml 1/2 Normal Saline IV 12 units/kg/hr .[id number] DAMON 14.152 mls/hr Protocol Administration 12 UNITS/KG/HR Levetiracetam 750 mg/ Sodium 107.5 mls @ 430 mls/hr 02/04/18 22:00 02/05/18 10:25 Chloride IV 430 mls/hr Q12 DAMON Administration NOREPINEPHRINE BIT/0.9 % NACL 4 mg in 250 mls @ 15 mls/hr 02/04/18 15:23 03/17 18:00 Levophed 4 Mg/ 250 Ml Ns Premixed IV 0 mcg/min .[id number] PRN 0 mls/hr TITRATE PER MD ORDER Titration Protocol 4 MCG/MIN Amiodarone HCl/Dextrose 360 mg in 200 mls @ 16.667 mls/hr 02/04/18 18:00 04/17 05:00 Nexterone 360 Mg In D5w 200 Ml (Premix) IV 16.667 mls/hr .Q12H DAMON Administration 0.5 MG/MIN Insulin Human Regular 0 units 02/05/18 12:00 Humulin R Med SC Q6 DAMON Protocol Levalbuterol HCl 0.63 mg 02/04/18 07:33 02/04/18 13:10 Xopenex IH 0.63 mg [id number] PRN Administration Shortness of Breath - Patient Studies Lab Studies: Microbiology Studies 02/04/18 07:00 Urine Culture - Final Urine,Catheterized No Growth (<1,000 CFU/ML) 02/04/18 07:00 Blood Culture - Preliminary Blood-Venous NO GROWTH AFTER 24 HOURS 02/04/18 06:45 Blood Culture - Preliminary Blood-Venous NO GROWTH AFTER 24 HOURS Lab Studies 02/05/18 02/05/18 02/05/18 Range/Units 11:37 09:00 06:30 WBC (4.5-11.0) 10^3/ul RBC (3.5-6.1) 10^6/uL Hgb (14.0-18.0) g/dL Hct (42.0-52.0) % MCV (80.0-105.0) fl MCH (25.0-35.0) pg MCHC (31.0-37.0) g/dl RDW (11.5-14.5) % Plt Count (120.0-450.0) 10^3/uL MPV (7.0-11.0) fl Gran % (50.0-68.0) % Lymph % (Auto) (22.0-35.0) % [place] % (Auto) (1.0-6.0) % Eos % (Auto) (1.5-5.0) % Baso % (Auto) (0.0-3.0) % Gran # (1.4-6.5) Lymph # (Auto) (1.2-3.4) [place] # (Auto) (0.1-0.6) Eos # (Auto) (0.0-0.7) Baso # (Auto) (0.0-2.0) K/mm3 Neutrophils % (Manual) (50.0-70.0) % Band Neutrophils % (0-2) % Lymphocytes % (Manual) (22.0-35.0) % Monocytes % (Manual) (1.0-6.0) % Platelet Evaluation (NORMAL) PT 15.3 H (9.4-12.5) SECONDS INR 1.32 H (0.93-1.08) APTT 195.6 H* (25.1-36.5) Seconds pCO2 (35-45) mm/Hg pO2 83 H 132 H (30-55) mm/Hg HCO3 (21-28) mmol/L ABG pH (7.35-7.45) ABG Total CO2 (22-28) mmol.L ABG O2 Saturation (95-98) % ABG O2 Content (15-23) ML/dl ABG Base Excess (-2.0-3.0) mmol/L ABG Hemoglobin (11.7-17.4) g/dL ABG Carboxyhemoglobin (0.5-1.5) % POC ABG HHb (Measured) (0-5) % ABG Methemoglobin (0.0-3.0) % ABG O2 Capacity (16-24) mL/dl ABG Potassium (3.6-5.2) mmol/L VBG pH 7.24 L 7.22 L (7.32-7.43) VBG pCO2 54.0 51.0 (40-60) VBG HCO3 23.1 20.9 L (21-28) mmol/l VBG Total CO2 24.8 22.5 (22-28) mmol.L VBG O2 Sat (Calc) 97.3 H 99.1 H (40-65) % VBG Base Excess -4.9 L -7.1 L (0.0-2.0) mmol/L VBG Potassium 4.5 4.8 (3.6-5.2) mmol/L Hgb O2 Saturation (95.0-98.0) % Sodium 139.0 139.0 (132-148) mmol/L Chloride 110.0 H 107.0 (98-107) mmol/L Glucose 279 H 255 H (75-110) mg/dl Lactate 3.7 H 3.8 H (0.7-2.1) mmol/L Mechanical Rate FiO2 21.0 21.0 % Tidal Volume PEEP Potassium (3.6-5.0) mmol/L Carbon Dioxide (21-33) mmol/L Anion Gap (10-20) BUN (7-21) mg/dL Creatinine (0.8-1.5) mg/dl Est GFR ( Amer) Est GFR (Non-Af Amer) POC Glucose (mg/dL) (65-110) mg/dL Random Glucose (70-110) mg/dL Calcium (8.4-10.5) mg/dL Ionized Calcium (4.80-5.60) mg/dL Phosphorus (2.5-4.5) mg/dL Magnesium (1.7-2.2) mg/dL Total Bilirubin (0.2-1.3) mg/dL AST (17-59) U/L ALT (7-56) U/L Alkaline Phosphatase (38-126) U/L Ammonia (9-33) umol/L Troponin I ng/mL Total Protein (5.8-8.3) g/dL Albumin (3.0-4.8) g/dL Globulin gm/dL Albumin/Globulin Ratio (1.1-1.8) Procalcitonin (0.19-0.49) NG/ML Arterial Blood Potassium (3.6-5.2) mmol/L Venous Blood Potassium 4.5 4.8 (3.6-5.2) mmol/L 02/05/18 02/05/18 02/05/18 Range/Units 06:10 06:00 06:00 WBC (4.5-11.0) 10^3/ul RBC (3.5-6.1) 10^6/uL Hgb (14.0-18.0) g/dL Hct (42.0-52.0) % MCV (80.0-105.0) fl MCH (25.0-35.0) pg MCHC (31.0-37.0) g/dl RDW (11.5-14.5) % Plt Count (120.0-450.0) 10^3/uL MPV (7.0-11.0) fl Gran % (50.0-68.0) % Lymph % (Auto) (22.0-35.0) % [place] % (Auto) (1.0-6.0) % Eos % (Auto) (1.5-5.0) % Baso % (Auto) (0.0-3.0) % Gran # (1.4-6.5) Lymph # (Auto) (1.2-3.4) [place] # (Auto) (0.1-0.6) Eos # (Auto) (0.0-0.7) Baso # (Auto) (0.0-2.0) K/mm3 Neutrophils % (Manual) (50.0-70.0) % Band Neutrophils % (0-2) % Lymphocytes % (Manual) (22.0-35.0) % Monocytes % (Manual) (1.0-6.0) % Platelet Evaluation (NORMAL) PT (9.4-12.5) SECONDS INR (0.93-1.08) APTT (25.1-36.5) Seconds pCO2 52 H (35-45) mm/Hg pO2 102.0 H (30-55) mm/Hg HCO3 20.8 L (21-28) mmol/L ABG pH 7.21 L (7.35-7.45) ABG Total CO2 22.4 (22-28) mmol.L ABG O2 Saturation 98.4 H (95-98) % ABG O2 Content (15-23) ML/dl ABG Base Excess -7.4 L (-2.0-3.0) mmol/L ABG Hemoglobin (11.7-17.4) g/dL ABG Carboxyhemoglobin (0.5-1.5) % POC ABG HHb (Measured) (0-5) % ABG Methemoglobin (0.0-3.0) % ABG O2 Capacity (16-24) mL/dl ABG Potassium 4.4 (3.6-5.2) mmol/L VBG pH (7.32-7.43) VBG pCO2 (40-60) VBG HCO3 (21-28) mmol/l VBG Total CO2 (22-28) mmol.L VBG O2 Sat (Calc) (40-65) % VBG Base Excess (0.0-2.0) mmol/L VBG Potassium (3.6-5.2) mmol/L Hgb O2 Saturation (95.0-98.0) % Sodium 140.0 144 (132-148) mmol/L Chloride 107.0 109 H (98-107) mmol/L Glucose 259 H (75-110) mg/dl Lactate 3.7 H (0.7-2.1) mmol/L Mechanical Rate FiO2 60.0 % Tidal Volume PEEP Potassium 4.5 (3.6-5.0) mmol/L Carbon Dioxide 20 L (21-33) mmol/L Anion Gap 19 (10-20) BUN 18 (7-21) mg/dL Creatinine 1.1 (0.8-1.5) mg/dl Est GFR ( Amer) > 60 Est GFR (Non-Af Amer) > 60 POC Glucose (mg/dL) (65-110) mg/dL Random Glucose 234 H (70-110) mg/dL Calcium 6.8 L* (8.4-10.5) mg/dL Ionized Calcium (4.80-5.60) mg/dL Phosphorus 3.2 (2.5-4.5) mg/dL Magnesium 1.8 (1.7-2.2) mg/dL Total Bilirubin 0.5 (0.2-1.3) mg/dL AST 124 H (17-59) U/L ALT 130 H (7-56) U/L Alkaline Phosphatase 66 (38-126) U/L Ammonia (9-33) umol/L Troponin I 1.47 H* D ng/mL Total Protein 6.4 (5.8-8.3) g/dL Albumin 3.6 (3.0-4.8) g/dL Globulin 2.8 gm/dL Albumin/Globulin Ratio 1.3 (1.1-1.8) Procalcitonin (0.19-0.49) NG/ML Arterial Blood Potassium 4.4 (3.6-5.2) mmol/L Venous Blood Potassium (3.6-5.2) mmol/L 02/05/18 02/05/18 02/05/18 Range/Units 06:00 01:20 00:30 WBC 26.6 H* (4.5-11.0) 10^3/ul RBC 5.32 (3.5-6.1) 10^6/uL Hgb 15.5 (14.0-18.0) g/dL Hct 45.1 (42.0-52.0) % MCV 84.8 (80.0-105.0) fl MCH 29.1 (25.0-35.0) pg MCHC 34.4 (31.0-37.0) g/dl RDW 13.9 (11.5-14.5) % Plt Count 179 (120.0-450.0) 10^3/uL MPV 10.5 (7.0-11.0) fl Gran % 88.0 H (50.0-68.0) % Lymph % (Auto) 5.7 L (22.0-35.0) % [place] % (Auto) 6.3 H (1.0-6.0) % Eos % (Auto) 0.0 L (1.5-5.0) % Baso % (Auto) 0.0 (0.0-3.0) % Gran # 23.36 H (1.4-6.5) Lymph # (Auto) 1.5 (1.2-3.4) [place] # (Auto) 1.7 H (0.1-0.6) Eos # (Auto) 0.0 (0.0-0.7) Baso # (Auto) 0.01 (0.0-2.0) K/mm3 Neutrophils % (Manual) (50.0-70.0) % Band Neutrophils % (0-2) % Lymphocytes % (Manual) (22.0-35.0) % Monocytes % (Manual) (1.0-6.0) % Platelet Evaluation (NORMAL) PT 14.4 H (9.4-12.5) SECONDS INR 1.26 H (0.93-1.08) APTT > 400.0 H* (25.1-36.5) Seconds pCO2 (35-45) mm/Hg pO2 (30-55) mm/Hg HCO3 (21-28) mmol/L ABG pH (7.35-7.45) ABG Total CO2 (22-28) mmol.L ABG O2 Saturation (95-98) % ABG O2 Content (15-23) ML/dl ABG Base Excess (-2.0-3.0) mmol/L ABG Hemoglobin (11.7-17.4) g/dL ABG Carboxyhemoglobin (0.5-1.5) % POC ABG HHb (Measured) (0-5) % ABG Methemoglobin (0.0-3.0) % ABG O2 Capacity (16-24) mL/dl ABG Potassium (3.6-5.2) mmol/L VBG pH (7.32-7.43) VBG pCO2 (40-60) VBG HCO3 (21-28) mmol/l VBG Total CO2 (22-28) mmol.L VBG O2 Sat (Calc) (40-65) % VBG Base Excess (0.0-2.0) mmol/L VBG Potassium (3.6-5.2) mmol/L Hgb O2 Saturation (95.0-98.0) % Sodium 143 (132-148) mmol/L Chloride 110 H (98-107) mmol/L Glucose (75-110) mg/dl Lactate (0.7-2.1) mmol/L Mechanical Rate FiO2 % Tidal Volume PEEP Potassium 4.8 (3.6-5.0) mmol/L Carbon Dioxide 22 (21-33) mmol/L Anion Gap 16 (10-20) BUN 17 (7-21) mg/dL Creatinine 1.1 (0.8-1.5) mg/dl Est GFR ( Amer) > 60 Est GFR (Non-Af Amer) > 60 POC Glucose (mg/dL) (65-110) mg/dL Random Glucose 227 H (70-110) mg/dL Calcium 6.7 L* (8.4-10.5) mg/dL Ionized Calcium (4.80-5.60) mg/dL Phosphorus 3.3 (2.5-4.5) mg/dL Magnesium 1.7 (1.7-2.2) mg/dL Total Bilirubin 0.5 (0.2-1.3) mg/dL AST 153 H D (17-59) U/L ALT 133 H (7-56) U/L Alkaline Phosphatase 58 (38-126) U/L Ammonia (9-33) umol/L Troponin I ng/mL Total Protein 6.2 (5.8-8.3) g/dL Albumin 3.5 (3.0-4.8) g/dL Globulin 2.7 gm/dL Albumin/Globulin Ratio 1.3 (1.1-1.8) Procalcitonin (0.19-0.49) NG/ML Arterial Blood Potassium (3.6-5.2) mmol/L Venous Blood Potassium (3.6-5.2) mmol/L 02/05/18 02/05/18 02/04/18 Range/Units 00:25 00:09 23:00 WBC (4.5-11.0) 10^3/ul RBC (3.5-6.1) 10^6/uL Hgb (14.0-18.0) g/dL Hct (42.0-52.0) % MCV (80.0-105.0) fl MCH (25.0-35.0) pg MCHC (31.0-37.0) g/dl RDW (11.5-14.5) % Plt Count (120.0-450.0) 10^3/uL MPV (7.0-11.0) fl Gran % (50.0-68.0) % Lymph % (Auto) (22.0-35.0) % [place] % (Auto) (1.0-6.0) % Eos % (Auto) (1.5-5.0) % Baso % (Auto) (0.0-3.0) % Gran # (1.4-6.5) Lymph # (Auto) (1.2-3.4) [place] # (Auto) (0.1-0.6) Eos # (Auto) (0.0-0.7) Baso # (Auto) (0.0-2.0) K/mm3 Neutrophils % (Manual) (50.0-70.0) % Band Neutrophils % (0-2) % Lymphocytes % (Manual) (22.0-35.0) % Monocytes % (Manual) (1.0-6.0) % Platelet Evaluation (NORMAL) PT (9.4-12.5) SECONDS INR (0.93-1.08) APTT > 400.0 H* (25.1-36.5) Seconds pCO2 53 H (35-45) mm/Hg pO2 71.0 L (30-55) mm/Hg HCO3 20.2 L (21-28) mmol/L ABG pH 7.19 L* (7.35-7.45) ABG Total CO2 21.8 L (22-28) mmol.L ABG O2 Saturation 95.5 (95-98) % ABG O2 Content (15-23) ML/dl ABG Base Excess -8.3 L (-2.0-3.0) mmol/L ABG Hemoglobin (11.7-17.4) g/dL ABG Carboxyhemoglobin (0.5-1.5) % POC ABG HHb (Measured) (0-5) % ABG Methemoglobin (0.0-3.0) % ABG O2 Capacity (16-24) mL/dl ABG Potassium 4.6 (3.6-5.2) mmol/L VBG pH (7.32-7.43) VBG pCO2 (40-60) VBG HCO3 (21-28) mmol/l VBG Total CO2 (22-28) mmol.L VBG O2 Sat (Calc) (40-65) % VBG Base Excess (0.0-2.0) mmol/L VBG Potassium (3.6-5.2) mmol/L Hgb O2 Saturation (95.0-98.0) % Sodium 139.0 (132-148) mmol/L Chloride 109.0 H (98-107) mmol/L Glucose 242 H (75-110) mg/dl Lactate 3.1 H (0.7-2.1) mmol/L Mechanical Rate 38 FiO2 60.0 % Tidal Volume 450 PEEP 15 Potassium (3.6-5.0) mmol/L Carbon Dioxide (21-33) mmol/L Anion Gap (10-20) BUN (7-21) mg/dL Creatinine (0.8-1.5) mg/dl Est GFR ( Amer) Est GFR (Non-Af Amer) POC Glucose (mg/dL) 232 H (65-110) mg/dL Random Glucose (70-110) mg/dL Calcium (8.4-10.5) mg/dL Ionized Calcium (4.80-5.60) mg/dL Phosphorus (2.5-4.5) mg/dL Magnesium (1.7-2.2) mg/dL Total Bilirubin (0.2-1.3) mg/dL AST (17-59) U/L ALT (7-56) U/L Alkaline Phosphatase (38-126) U/L Ammonia (9-33) umol/L Troponin I ng/mL Total Protein (5.8-8.3) g/dL Albumin (3.0-4.8) g/dL Globulin gm/dL Albumin/Globulin Ratio (1.1-1.8) Procalcitonin (0.19-0.49) NG/ML Arterial Blood Potassium 4.6 (3.6-5.2) mmol/L Venous Blood Potassium (3.6-5.2) mmol/L 02/04/18 02/04/18 02/04/18 Range/Units 18:35 17:25 17:25 WBC (4.5-11.0) 10^3/ul RBC (3.5-6.1) 10^6/uL Hgb (14.0-18.0) g/dL Hct (42.0-52.0) % MCV (80.0-105.0) fl MCH (25.0-35.0) pg MCHC (31.0-37.0) g/dl RDW (11.5-14.5) % Plt Count (120.0-450.0) 10^3/uL MPV (7.0-11.0) fl Gran % (50.0-68.0) % Lymph % (Auto) (22.0-35.0) % [place] % (Auto) (1.0-6.0) % Eos % (Auto) (1.5-5.0) % Baso % (Auto) (0.0-3.0) % Gran # (1.4-6.5) Lymph # (Auto) (1.2-3.4) [place] # (Auto) (0.1-0.6) Eos # (Auto) (0.0-0.7) Baso # (Auto) (0.0-2.0) K/mm3 Neutrophils % (Manual) (50.0-70.0) % Band Neutrophils % (0-2) % Lymphocytes % (Manual) (22.0-35.0) % Monocytes % (Manual) (1.0-6.0) % Platelet Evaluation (NORMAL) PT (9.4-12.5) SECONDS INR (0.93-1.08) APTT (25.1-36.5) Seconds pCO2 (35-45) mm/Hg pO2 (30-55) mm/Hg HCO3 (21-28) mmol/L ABG pH (7.35-7.45) ABG Total CO2 (22-28) mmol.L ABG O2 Saturation (95-98) % ABG O2 Content (15-23) ML/dl ABG Base Excess (-2.0-3.0) mmol/L ABG Hemoglobin (11.7-17.4) g/dL ABG Carboxyhemoglobin (0.5-1.5) % POC ABG HHb (Measured) (0-5) % ABG Methemoglobin (0.0-3.0) % ABG O2 Capacity (16-24) mL/dl ABG Potassium (3.6-5.2) mmol/L VBG pH (7.32-7.43) VBG pCO2 (40-60) VBG HCO3 (21-28) mmol/l VBG Total CO2 (22-28) mmol.L VBG O2 Sat (Calc) (40-65) % VBG Base Excess (0.0-2.0) mmol/L VBG Potassium (3.6-5.2) mmol/L Hgb O2 Saturation (95.0-98.0) % Sodium 146 (132-148) mmol/L Chloride 108 H (98-107) mmol/L Glucose (75-110) mg/dl Lactate (0.7-2.1) mmol/L Mechanical Rate FiO2 % Tidal Volume PEEP Potassium 3.6 (3.6-5.0) mmol/L Carbon Dioxide 23 (21-33) mmol/L Anion Gap 18 (10-20) BUN 17 (7-21) mg/dL Creatinine 1.3 (0.8-1.5) mg/dl Est GFR ( Amer) > 60 Est GFR (Non-Af Amer) 57 POC Glucose (mg/dL) 228 H (65-110) mg/dL Random Glucose 241 H (70-110) mg/dL Calcium 6.6 L* (8.4-10.5) mg/dL Ionized Calcium 3.3 L (4.80-5.60) mg/dL Phosphorus 4.3 (2.5-4.5) mg/dL Magnesium 1.9 (1.7-2.2) mg/dL Total Bilirubin 0.7 (0.2-1.3) mg/dL AST 270 H (17-59) U/L ALT 149 H (7-56) U/L Alkaline Phosphatase 66 (38-126) U/L Ammonia (9-33) umol/L Troponin I ng/mL Total Protein 6.0 (5.8-8.3) g/dL Albumin 3.2 (3.0-4.8) g/dL Globulin 2.7 gm/dL Albumin/Globulin Ratio 1.2 (1.1-1.8) Procalcitonin (0.19-0.49) NG/ML Arterial Blood Potassium (3.6-5.2) mmol/L Venous Blood Potassium (3.6-5.2) mmol/L 02/04/18 02/04/18 02/04/18 Range/Units 17:25 16:40 16:21 WBC 29.8 H* (4.5-11.0) 10^3/ul RBC 5.59 (3.5-6.1) 10^6/uL Hgb 16.7 (14.0-18.0) g/dL Hct 48.1 (42.0-52.0) % MCV 86.0 (80.0-105.0) fl MCH 29.9 (25.0-35.0) pg MCHC 34.7 (31.0-37.0) g/dl RDW 13.9 (11.5-14.5) % Plt Count 226 (120.0-450.0) 10^3/uL MPV 10.4 (7.0-11.0) fl Gran % (50.0-68.0) % Lymph % (Auto) (22.0-35.0) % [place] % (Auto) (1.0-6.0) % Eos % (Auto) (1.5-5.0) % Baso % (Auto) 0.1 (0.0-3.0) % Gran # (1.4-6.5) Lymph # (Auto) (1.2-3.4) [place] # (Auto) (0.1-0.6) Eos # (Auto) (0.0-0.7) Baso # (Auto) 0.02 (0.0-2.0) K/mm3 Neutrophils % (Manual) (50.0-70.0) % Band Neutrophils % (0-2) % Lymphocytes % (Manual) (22.0-35.0) % Monocytes % (Manual) (1.0-6.0) % Platelet Evaluation (NORMAL) PT (9.4-12.5) SECONDS INR (0.93-1.08) APTT (25.1-36.5) Seconds pCO2 64 H (35-45) mm/Hg pO2 70.0 L 61 H (30-55) mm/Hg HCO3 19.4 L (21-28) mmol/L ABG pH 7.09 L* (7.35-7.45) ABG Total CO2 21.4 L (22-28) mmol.L ABG O2 Saturation 94.0 L (95-98) % ABG O2 Content (15-23) ML/dl ABG Base Excess -11.2 L (-2.0-3.0) mmol/L ABG Hemoglobin (11.7-17.4) g/dL ABG Carboxyhemoglobin (0.5-1.5) % POC ABG HHb (Measured) (0-5) % ABG Methemoglobin (0.0-3.0) % ABG O2 Capacity (16-24) mL/dl ABG Potassium 3.1 L (3.6-5.2) mmol/L VBG pH 7.04 L* (7.32-7.43) VBG pCO2 85.0 H* (40-60) VBG HCO3 23.0 (21-28) mmol/l VBG Total CO2 25.6 (22-28) mmol.L VBG O2 Sat (Calc) 89.6 H (40-65) % VBG Base Excess -9.4 L (0.0-2.0) mmol/L VBG Potassium 3.5 L (3.6-5.2) mmol/L Hgb O2 Saturation (95.0-98.0) % Sodium 141.0 142.0 (132-148) mmol/L Chloride 113.0 H 107.0 (98-107) mmol/L Glucose 264 H 266 H (75-110) mg/dl Lactate 3.4 H 4.2 H* (0.7-2.1) mmol/L Mechanical Rate FiO2 80.0 21.0 % Tidal Volume PEEP Potassium (3.6-5.0) mmol/L Carbon Dioxide (21-33) mmol/L Anion Gap (10-20) BUN (7-21) mg/dL Creatinine (0.8-1.5) mg/dl Est GFR ( Amer) Est GFR (Non-Af Amer) POC Glucose (mg/dL) (65-110) mg/dL Random Glucose (70-110) mg/dL Calcium (8.4-10.5) mg/dL Ionized Calcium (4.80-5.60) mg/dL Phosphorus (2.5-4.5) mg/dL Magnesium (1.7-2.2) mg/dL Total Bilirubin (0.2-1.3) mg/dL AST (17-59) U/L ALT (7-56) U/L Alkaline Phosphatase (38-126) U/L Ammonia (9-33) umol/L Troponin I ng/mL Total Protein (5.8-8.3) g/dL Albumin (3.0-4.8) g/dL Globulin gm/dL Albumin/Globulin Ratio (1.1-1.8) Procalcitonin (0.19-0.49) NG/ML Arterial Blood Potassium 3.1 L (3.6-5.2) mmol/L Venous Blood Potassium 3.5 L (3.6-5.2) mmol/L 02/04/18 02/04/18 02/04/18 Range/Units 16:20 16:20 14:55 WBC (4.5-11.0) 10^3/ul RBC (3.5-6.1) 10^6/uL Hgb (14.0-18.0) g/dL Hct (42.0-52.0) % MCV (80.0-105.0) fl MCH (25.0-35.0) pg MCHC (31.0-37.0) g/dl RDW (11.5-14.5) % Plt Count (120.0-450.0) 10^3/uL MPV (7.0-11.0) fl Gran % (50.0-68.0) % Lymph % (Auto) (22.0-35.0) % [place] % (Auto) (1.0-6.0) % Eos % (Auto) (1.5-5.0) % Baso % (Auto) (0.0-3.0) % Gran # (1.4-6.5) Lymph # (Auto) (1.2-3.4) [place] # (Auto) (0.1-0.6) Eos # (Auto) (0.0-0.7) Baso # (Auto) (0.0-2.0) K/mm3 Neutrophils % (Manual) (50.0-70.0) % Band Neutrophils % (0-2) % Lymphocytes % (Manual) (22.0-35.0) % Monocytes % (Manual) (1.0-6.0) % Platelet Evaluation (NORMAL) PT 14.1 H (9.4-12.5) SECONDS INR 1.23 H (0.93-1.08) APTT 72.7 H (25.1-36.5) Seconds pCO2 67 H (35-45) mm/Hg pO2 65.0 L (30-55) mm/Hg HCO3 20.3 L (21-28) mmol/L ABG pH 7.09 L* (7.35-7.45) ABG Total CO2 22.4 (22-28) mmol.L ABG O2 Saturation 92.0 L (95-98) % ABG O2 Content 20.4 (15-23) ML/dl ABG Base Excess -10.9 L (-2.0-3.0) mmol/L ABG Hemoglobin 16.1 (11.7-17.4) g/dL ABG Carboxyhemoglobin 1.3 (0.5-1.5) % POC ABG HHb (Measured) 7.8 H (0-5) % ABG Methemoglobin 0.7 (0.0-3.0) % ABG O2 Capacity 22.2 (16-24) mL/dl ABG Potassium (3.6-5.2) mmol/L VBG pH (7.32-7.43) VBG pCO2 (40-60) VBG HCO3 (21-28) mmol/l VBG Total CO2 (22-28) mmol.L VBG O2 Sat (Calc) (40-65) % VBG Base Excess (0.0-2.0) mmol/L VBG Potassium (3.6-5.2) mmol/L Hgb O2 Saturation 90.2 L (95.0-98.0) % Sodium (132-148) mmol/L Chloride (98-107) mmol/L Glucose (75-110) mg/dl Lactate (0.7-2.1) mmol/L Mechanical Rate FiO2 80.0 % Tidal Volume PEEP Potassium (3.6-5.0) mmol/L Carbon Dioxide (21-33) mmol/L Anion Gap (10-20) BUN (7-21) mg/dL Creatinine (0.8-1.5) mg/dl Est GFR ( Amer) Est GFR (Non-Af Amer) POC Glucose (mg/dL) (65-110) mg/dL Random Glucose (70-110) mg/dL Calcium (8.4-10.5) mg/dL Ionized Calcium (4.80-5.60) mg/dL Phosphorus (2.5-4.5) mg/dL Magnesium (1.7-2.2) mg/dL Total Bilirubin (0.2-1.3) mg/dL AST (17-59) U/L ALT (7-56) U/L Alkaline Phosphatase (38-126) U/L Ammonia (9-33) umol/L Troponin I ng/mL Total Protein (5.8-8.3) g/dL Albumin (3.0-4.8) g/dL Globulin gm/dL Albumin/Globulin Ratio (1.1-1.8) Procalcitonin (0.19-0.49) NG/ML Arterial Blood Potassium (3.6-5.2) mmol/L Venous Blood Potassium (3.6-5.2) mmol/L 02/04/18 02/04/18 02/04/18 Range/Units 12:45 12:45 12:41 WBC 31.1 H* D (4.5-11.0) 10^3/ul RBC 5.81 (3.5-6.1) 10^6/uL Hgb 17.6 D (14.0-18.0) g/dL Hct 50.3 (42.0-52.0) % MCV 86.6 (80.0-105.0) fl MCH 30.3 (25.0-35.0) pg MCHC 35.0 (31.0-37.0) g/dl RDW 14.0 (11.5-14.5) % Plt Count 250 (120.0-450.0) 10^3/uL MPV 11.2 H (7.0-11.0) fl Gran % 85.8 H (50.0-68.0) % Lymph % (Auto) 4.5 L (22.0-35.0) % [place] % (Auto) 9.6 H (1.0-6.0) % Eos % (Auto) 0.0 L (1.5-5.0) % Baso % (Auto) 0.1 (0.0-3.0) % Gran # 26.68 H (1.4-6.5) Lymph # (Auto) 1.4 (1.2-3.4) [place] # (Auto) 3.0 H (0.1-0.6) Eos # (Auto) 0.0 (0.0-0.7) Baso # (Auto) 0.02 (0.0-2.0) K/mm3 Neutrophils % (Manual) 94 H (50.0-70.0) % Band Neutrophils % 1 (0-2) % Lymphocytes % (Manual) 4 L (22.0-35.0) % Monocytes % (Manual) 1 (1.0-6.0) % Platelet Evaluation Normal (NORMAL) PT (9.4-12.5) SECONDS INR (0.93-1.08) APTT (25.1-36.5) Seconds pCO2 (35-45) mm/Hg pO2 (30-55) mm/Hg HCO3 (21-28) mmol/L ABG pH (7.35-7.45) ABG Total CO2 (22-28) mmol.L ABG O2 Saturation (95-98) % ABG O2 Content (15-23) ML/dl ABG Base Excess (-2.0-3.0) mmol/L ABG Hemoglobin (11.7-17.4) g/dL ABG Carboxyhemoglobin (0.5-1.5) % POC ABG HHb (Measured) (0-5) % ABG Methemoglobin (0.0-3.0) % ABG O2 Capacity (16-24) mL/dl ABG Potassium (3.6-5.2) mmol/L VBG pH (7.32-7.43) VBG pCO2 (40-60) VBG HCO3 (21-28) mmol/l VBG Total CO2 (22-28) mmol.L VBG O2 Sat (Calc) (40-65) % VBG Base Excess (0.0-2.0) mmol/L VBG Potassium (3.6-5.2) mmol/L Hgb O2 Saturation (95.0-98.0) % Sodium 145 (132-148) mmol/L Chloride 108 H (98-107) mmol/L Glucose (75-110) mg/dl Lactate (0.7-2.1) mmol/L Mechanical Rate FiO2 % Tidal Volume PEEP Potassium 3.9 (3.6-5.0) mmol/L Carbon Dioxide 24 (21-33) mmol/L Anion Gap 17 (10-20) BUN 17 (7-21) mg/dL Creatinine 1.5 (0.8-1.5) mg/dl Est GFR ( Amer) 59 Est GFR (Non-Af Amer) 48 POC Glucose (mg/dL) 226 H (65-110) mg/dL Random Glucose 251 H (70-110) mg/dL Calcium 6.9 L* (8.4-10.5) mg/dL Ionized Calcium (4.80-5.60) mg/dL Phosphorus (2.5-4.5) mg/dL Magnesium (1.7-2.2) mg/dL Total Bilirubin 0.6 (0.2-1.3) mg/dL AST 317 H D (17-59) U/L ALT 168 H (7-56) U/L Alkaline Phosphatase 85 (38-126) U/L Ammonia (9-33) umol/L Troponin I ng/mL Total Protein 6.8 (5.8-8.3) g/dL Albumin 3.7 (3.0-4.8) g/dL Globulin 3.2 gm/dL Albumin/Globulin Ratio 1.2 (1.1-1.8) Procalcitonin (0.19-0.49) NG/ML Arterial Blood Potassium (3.6-5.2) mmol/L Venous Blood Potassium (3.6-5.2) mmol/L 02/04/18 02/04/18 02/04/18 Range/Units 12:38 12:00 12:00 WBC (4.5-11.0) 10^3/ul RBC (3.5-6.1) 10^6/uL Hgb (14.0-18.0) g/dL Hct (42.0-52.0) % MCV (80.0-105.0) fl MCH (25.0-35.0) pg MCHC (31.0-37.0) g/dl RDW (11.5-14.5) % Plt Count (120.0-450.0) 10^3/uL MPV (7.0-11.0) fl Gran % (50.0-68.0) % Lymph % (Auto) (22.0-35.0) % [place] % (Auto) (1.0-6.0) % Eos % (Auto) (1.5-5.0) % Baso % (Auto) (0.0-3.0) % Gran # (1.4-6.5) Lymph # (Auto) (1.2-3.4) [place] # (Auto) (0.1-0.6) Eos # (Auto) (0.0-0.7) Baso # (Auto) (0.0-2.0) K/mm3 Neutrophils % (Manual) (50.0-70.0) % Band Neutrophils % (0-2) % Lymphocytes % (Manual) (22.0-35.0) % Monocytes % (Manual) (1.0-6.0) % Platelet Evaluation (NORMAL) PT (9.4-12.5) SECONDS INR (0.93-1.08) APTT (25.1-36.5) Seconds pCO2 76 H* (35-45) mm/Hg pO2 67.0 L 66 H (30-55) mm/Hg HCO3 21.5 (21-28) mmol/L ABG pH 7.06 L* (7.35-7.45) ABG Total CO2 23.8 (22-28) mmol.L ABG O2 Saturation 91.4 L (95-98) % ABG O2 Content (15-23) ML/dl ABG Base Excess -10.1 L (-2.0-3.0) mmol/L ABG Hemoglobin (11.7-17.4) g/dL ABG Carboxyhemoglobin (0.5-1.5) % POC ABG HHb (Measured) (0-5) % ABG Methemoglobin (0.0-3.0) % ABG O2 Capacity (16-24) mL/dl ABG Potassium 3.5 L (3.6-5.2) mmol/L VBG pH 7.01 L* (7.32-7.43) VBG pCO2 96.0 H* (40-60) VBG HCO3 24.2 (21-28) mmol/l VBG Total CO2 27.1 (22-28) mmol.L VBG O2 Sat (Calc) 89.1 H (40-65) % VBG Base Excess -9.1 L (0.0-2.0) mmol/L VBG Potassium 3.9 (3.6-5.2) mmol/L Hgb O2 Saturation (95.0-98.0) % Sodium 142.0 143.0 (132-148) mmol/L Chloride 109.0 H 106.0 (98-107) mmol/L Glucose 258 H 269 H (75-110) mg/dl Lactate 2.9 H 3.3 H (0.7-2.1) mmol/L Mechanical Rate 28 FiO2 80.0 21.0 % Tidal Volume 400 PEEP 15 Potassium (3.6-5.0) mmol/L Carbon Dioxide (21-33) mmol/L Anion Gap (10-20) BUN (7-21) mg/dL Creatinine (0.8-1.5) mg/dl Est GFR ( Amer) Est GFR (Non-Af Amer) POC Glucose (mg/dL) (65-110) mg/dL Random Glucose (70-110) mg/dL Calcium (8.4-10.5) mg/dL Ionized Calcium (4.80-5.60) mg/dL Phosphorus (2.5-4.5) mg/dL Magnesium (1.7-2.2) mg/dL Total Bilirubin (0.2-1.3) mg/dL AST (17-59) U/L ALT (7-56) U/L Alkaline Phosphatase (38-126) U/L Ammonia (9-33) umol/L Troponin I ng/mL Total Protein (5.8-8.3) g/dL Albumin (3.0-4.8) g/dL Globulin gm/dL Albumin/Globulin Ratio (1.1-1.8) Procalcitonin 2.75 H (0.19-0.49) NG/ML Arterial Blood Potassium 3.5 L (3.6-5.2) mmol/L Venous Blood Potassium 3.9 (3.6-5.2) mmol/L 02/04/18 02/04/18 Range/Units 12:00 11:00 WBC (4.5-11.0) 10^3/ul RBC (3.5-6.1) 10^6/uL Hgb (14.0-18.0) g/dL Hct (42.0-52.0) % MCV (80.0-105.0) fl MCH (25.0-35.0) pg MCHC (31.0-37.0) g/dl RDW (11.5-14.5) % Plt Count (120.0-450.0) 10^3/uL MPV (7.0-11.0) fl Gran % (50.0-68.0) % Lymph % (Auto) (22.0-35.0) % [place] % (Auto) (1.0-6.0) % Eos % (Auto) (1.5-5.0) % Baso % (Auto) (0.0-3.0) % Gran # (1.4-6.5) Lymph # (Auto) (1.2-3.4) [place] # (Auto) (0.1-0.6) Eos # (Auto) (0.0-0.7) Baso # (Auto) (0.0-2.0) K/mm3 Neutrophils % (Manual) (50.0-70.0) % Band Neutrophils % (0-2) % Lymphocytes % (Manual) (22.0-35.0) % Monocytes % (Manual) (1.0-6.0) % Platelet Evaluation (NORMAL) PT (9.4-12.5) SECONDS INR (0.93-1.08) APTT (25.1-36.5) Seconds pCO2 (35-45) mm/Hg pO2 (30-55) mm/Hg HCO3 (21-28) mmol/L ABG pH (7.35-7.45) ABG Total CO2 (22-28) mmol.L ABG O2 Saturation (95-98) % ABG O2 Content (15-23) ML/dl ABG Base Excess (-2.0-3.0) mmol/L ABG Hemoglobin (11.7-17.4) g/dL ABG Carboxyhemoglobin (0.5-1.5) % POC ABG HHb (Measured) (0-5) % ABG Methemoglobin (0.0-3.0) % ABG O2 Capacity (16-24) mL/dl ABG Potassium (3.6-5.2) mmol/L VBG pH (7.32-7.43) VBG pCO2 (40-60) VBG HCO3 (21-28) mmol/l VBG Total CO2 (22-28) mmol.L VBG O2 Sat (Calc) (40-65) % VBG Base Excess (0.0-2.0) mmol/L VBG Potassium (3.6-5.2) mmol/L Hgb O2 Saturation (95.0-98.0) % Sodium (132-148) mmol/L Chloride (98-107) mmol/L Glucose (75-110) mg/dl Lactate (0.7-2.1) mmol/L Mechanical Rate FiO2 % Tidal Volume PEEP Potassium (3.6-5.0) mmol/L Carbon Dioxide (21-33) mmol/L Anion Gap (10-20) BUN (7-21) mg/dL Creatinine (0.8-1.5) mg/dl Est GFR ( Amer) Est GFR (Non-Af Amer) POC Glucose (mg/dL) (65-110) mg/dL Random Glucose (70-110) mg/dL Calcium (8.4-10.5) mg/dL Ionized Calcium (4.80-5.60) mg/dL Phosphorus (2.5-4.5) mg/dL Magnesium (1.7-2.2) mg/dL Total Bilirubin (0.2-1.3) mg/dL AST (17-59) U/L ALT (7-56) U/L Alkaline Phosphatase (38-126) U/L Ammonia 9 (9-33) umol/L Troponin I 11.80 H* D ng/mL Total Protein (5.8-8.3) g/dL Albumin (3.0-4.8) g/dL Globulin gm/dL Albumin/Globulin Ratio (1.1-1.8) Procalcitonin (0.19-0.49) NG/ML Arterial Blood Potassium (3.6-5.2) mmol/L Venous Blood Potassium (3.6-5.2) mmol/L Laboratory Results - last 24 hr 02/04/18 02/04/18 02/04/18 11:00 12:00 12:00 WBC RBC Hgb Hct MCV MCH MCHC RDW Plt Count MPV Gran % Lymph % (Auto) [place] % (Auto) Eos % (Auto) Baso % (Auto) Gran # Lymph # (Auto) [place] # (Auto) Eos # (Auto) Baso # (Auto) Neutrophils % (Manual) Band Neutrophils % Lymphocytes % (Manual) Monocytes % (Manual) Platelet Evaluation PT INR APTT pCO2 pO2 HCO3 ABG pH ABG Total CO2 ABG O2 Saturation ABG O2 Content ABG Base Excess ABG Hemoglobin ABG Carboxyhemoglobin POC ABG HHb (Measured) ABG Methemoglobin ABG O2 Capacity ABG Potassium VBG pH VBG pCO2 VBG HCO3 VBG Total CO2 VBG O2 Sat (Calc) VBG Base Excess VBG Potassium Hgb O2 Saturation Sodium Chloride Glucose Lactate Mechanical Rate FiO2 Tidal Volume PEEP Potassium Carbon Dioxide Anion Gap BUN Creatinine Est GFR ( Amer) Est GFR (Non-Af Amer) POC Glucose (mg/dL) Random Glucose Calcium Ionized Calcium Phosphorus Magnesium Total Bilirubin AST ALT Alkaline Phosphatase Ammonia 9 Troponin I 11.80 H* D Total Protein Albumin Globulin Albumin/Globulin Ratio Procalcitonin 2.75 H Arterial Blood Potassium Venous Blood Potassium 02/04/18 02/04/18 02/04/18 12:00 12:38 12:41 WBC RBC Hgb Hct MCV MCH MCHC RDW Plt Count MPV Gran % Lymph % (Auto) [place] % (Auto) Eos % (Auto) Baso % (Auto) Gran # Lymph # (Auto) [place] # (Auto) Eos # (Auto) Baso # (Auto) Neutrophils % (Manual) Band Neutrophils % Lymphocytes % (Manual) Monocytes % (Manual) Platelet Evaluation PT INR APTT pCO2 76 H* pO2 66 H 67.0 L HCO3 21.5 ABG pH 7.06 L* ABG Total CO2 23.8 ABG O2 Saturation 91.4 L ABG O2 Content ABG Base Excess -10.1 L ABG Hemoglobin ABG Carboxyhemoglobin POC ABG HHb (Measured) ABG Methemoglobin ABG O2 Capacity ABG Potassium 3.5 L VBG pH 7.01 L* VBG pCO2 96.0 H* VBG HCO3 24.2 VBG Total CO2 27.1 VBG O2 Sat (Calc) 89.1 H VBG Base Excess -9.1 L VBG Potassium 3.9 Hgb O2 Saturation Sodium 143.0 142.0 Chloride 106.0 109.0 H Glucose 269 H 258 H Lactate 3.3 H 2.9 H Mechanical Rate 28 FiO2 21.0 80.0 Tidal Volume 400 PEEP 15 Potassium Carbon Dioxide Anion Gap BUN Creatinine Est GFR ( Amer) Est GFR (Non-Af Amer) POC Glucose (mg/dL) 226 H Random Glucose Calcium Ionized Calcium Phosphorus Magnesium Total Bilirubin AST ALT Alkaline Phosphatase Ammonia Troponin I Total Protein Albumin Globulin Albumin/Globulin Ratio Procalcitonin Arterial Blood Potassium 3.5 L Venous Blood Potassium 3.9 02/04/18 02/04/18 02/04/18 12:45 12:45 14:55 WBC 31.1 H* D RBC 5.81 Hgb 17.6 D Hct 50.3 MCV 86.6 MCH 30.3 MCHC 35.0 RDW 14.0 Plt Count 250 MPV 11.2 H Gran % 85.8 H Lymph % (Auto) 4.5 L [place] % (Auto) 9.6 H Eos % (Auto) 0.0 L Baso % (Auto) 0.1 Gran # 26.68 H Lymph # (Auto) 1.4 [place] # (Auto) 3.0 H Eos # (Auto) 0.0 Baso # (Auto) 0.02 Neutrophils % (Manual) 94 H Band Neutrophils % 1 Lymphocytes % (Manual) 4 L Monocytes % (Manual) 1 Platelet Evaluation Normal PT INR APTT pCO2 67 H pO2 65.0 L HCO3 20.3 L ABG pH 7.09 L* ABG Total CO2 22.4 ABG O2 Saturation 92.0 L ABG O2 Content 20.4 ABG Base Excess -10.9 L ABG Hemoglobin 16.1 ABG Carboxyhemoglobin 1.3 POC ABG HHb (Measured) 7.8 H ABG Methemoglobin 0.7 ABG O2 Capacity 22.2 ABG Potassium VBG pH VBG pCO2 VBG HCO3 VBG Total CO2 VBG O2 Sat (Calc) VBG Base Excess VBG Potassium Hgb O2 Saturation 90.2 L Sodium 145 Chloride 108 H Glucose Lactate Mechanical Rate FiO2 80.0 Tidal Volume PEEP Potassium 3.9 Carbon Dioxide 24 Anion Gap 17 BUN 17 Creatinine 1.5 Est GFR ( Amer) 59 Est GFR (Non-Af Amer) 48 POC Glucose (mg/dL) Random Glucose 251 H Calcium 6.9 L* Ionized Calcium Phosphorus Magnesium Total Bilirubin 0.6 AST 317 H D ALT 168 H Alkaline Phosphatase 85 Ammonia Troponin I Total Protein 6.8 Albumin 3.7 Globulin 3.2 Albumin/Globulin Ratio 1.2 Procalcitonin Arterial Blood Potassium Venous Blood Potassium 02/04/18 02/04/18 02/04/18 16:20 16:20 16:21 WBC RBC Hgb Hct MCV MCH MCHC RDW Plt Count MPV Gran % Lymph % (Auto) [place] % (Auto) Eos % (Auto) Baso % (Auto) Gran # Lymph # (Auto) [place] # (Auto) Eos # (Auto) Baso # (Auto) Neutrophils % (Manual) Band Neutrophils % Lymphocytes % (Manual) Monocytes % (Manual) Platelet Evaluation PT 14.1 H INR 1.23 H APTT 72.7 H pCO2 pO2 61 H HCO3 ABG pH ABG Total CO2 ABG O2 Saturation ABG O2 Content ABG Base Excess ABG Hemoglobin ABG Carboxyhemoglobin POC ABG HHb (Measured) ABG Methemoglobin ABG O2 Capacity ABG Potassium VBG pH 7.04 L* VBG pCO2 85.0 H* VBG HCO3 23.0 VBG Total CO2 25.6 VBG O2 Sat (Calc) 89.6 H VBG Base Excess -9.4 L VBG Potassium 3.5 L Hgb O2 Saturation Sodium 142.0 Chloride 107.0 Glucose 266 H Lactate 4.2 H* Mechanical Rate FiO2 21.0 Tidal Volume PEEP Potassium Carbon Dioxide Anion Gap BUN Creatinine Est GFR ( Amer) Est GFR (Non-Af Amer) POC Glucose (mg/dL) Random Glucose Calcium Ionized Calcium Phosphorus Magnesium Total Bilirubin AST ALT Alkaline Phosphatase Ammonia Troponin I Total Protein Albumin Globulin Albumin/Globulin Ratio Procalcitonin Arterial Blood Potassium Venous Blood Potassium 3.5 L 02/04/18 02/04/18 02/04/18 16:40 17:25 17:25 WBC 29.8 H* RBC 5.59 Hgb 16.7 Hct 48.1 MCV 86.0 MCH 29.9 MCHC 34.7 RDW 13.9 Plt Count 226 MPV 10.4 Gran % Lymph % (Auto) [place] % (Auto) Eos % (Auto) Baso % (Auto) 0.1 Gran # Lymph # (Auto) [place] # (Auto) Eos # (Auto) Baso # (Auto) 0.02 Neutrophils % (Manual) Band Neutrophils % Lymphocytes % (Manual) Monocytes % (Manual) Platelet Evaluation PT INR APTT pCO2 64 H pO2 70.0 L HCO3 19.4 L ABG pH 7.09 L* ABG Total CO2 21.4 L ABG O2 Saturation 94.0 L ABG O2 Content ABG Base Excess -11.2 L ABG Hemoglobin ABG Carboxyhemoglobin POC ABG HHb (Measured) ABG Methemoglobin ABG O2 Capacity ABG Potassium 3.1 L VBG pH VBG pCO2 VBG HCO3 VBG Total CO2 VBG O2 Sat (Calc) VBG Base Excess VBG Potassium Hgb O2 Saturation Sodium 141.0 146 Chloride 113.0 H 108 H Glucose 264 H Lactate 3.4 H Mechanical Rate FiO2 80.0 Tidal Volume PEEP Potassium 3.6 Carbon Dioxide 23 Anion Gap 18 BUN 17 Creatinine 1.3 Est GFR ( Amer) > 60 Est GFR (Non-Af Amer) 57 POC Glucose (mg/dL) Random Glucose 241 H Calcium 6.6 L* Ionized Calcium Phosphorus 4.3 Magnesium 1.9 Total Bilirubin 0.7 AST 270 H ALT 149 H Alkaline Phosphatase 66 Ammonia Troponin I Total Protein 6.0 Albumin 3.2 Globulin 2.7 Albumin/Globulin Ratio 1.2 Procalcitonin Arterial Blood Potassium 3.1 L Venous Blood Potassium 02/04/18 02/04/18 02/04/18 17:25 18:35 23:00 WBC RBC Hgb Hct MCV MCH MCHC RDW Plt Count MPV Gran % Lymph % (Auto) [place] % (Auto) Eos % (Auto) Baso % (Auto) Gran # Lymph # (Auto) [place] # (Auto) Eos # (Auto) Baso # (Auto) Neutrophils % (Manual) Band Neutrophils % Lymphocytes % (Manual) Monocytes % (Manual) Platelet Evaluation PT INR APTT > 400.0 H* pCO2 pO2 HCO3 ABG pH ABG Total CO2 ABG O2 Saturation ABG O2 Content ABG Base Excess ABG Hemoglobin ABG Carboxyhemoglobin POC ABG HHb (Measured) ABG Methemoglobin ABG O2 Capacity ABG Potassium VBG pH VBG pCO2 VBG HCO3 VBG Total CO2 VBG O2 Sat (Calc) VBG Base Excess VBG Potassium Hgb O2 Saturation Sodium Chloride Glucose Lactate Mechanical Rate FiO2 Tidal Volume PEEP Potassium Carbon Dioxide Anion Gap BUN Creatinine Est GFR ( Amer) Est GFR (Non-Af Amer) POC Glucose (mg/dL) 228 H Random Glucose Calcium Ionized Calcium 3.3 L Phosphorus Magnesium Total Bilirubin AST ALT Alkaline Phosphatase Ammonia Troponin I Total Protein Albumin Globulin Albumin/Globulin Ratio Procalcitonin Arterial Blood Potassium Venous Blood Potassium 02/05/18 02/05/18 02/05/18 00:09 00:25 00:30 WBC RBC Hgb Hct MCV MCH MCHC RDW Plt Count MPV Gran % Lymph % (Auto) [place] % (Auto) Eos % (Auto) Baso % (Auto) Gran # Lymph # (Auto) [place] # (Auto) Eos # (Auto) Baso # (Auto) Neutrophils % (Manual) Band Neutrophils % Lymphocytes % (Manual) Monocytes % (Manual) Platelet Evaluation PT INR APTT pCO2 53 H pO2 71.0 L HCO3 20.2 L ABG pH 7.19 L* ABG Total CO2 21.8 L ABG O2 Saturation 95.5 ABG O2 Content ABG Base Excess -8.3 L ABG Hemoglobin ABG Carboxyhemoglobin POC ABG HHb (Measured) ABG Methemoglobin ABG O2 Capacity ABG Potassium 4.6 VBG pH VBG pCO2 VBG HCO3 VBG Total CO2 VBG O2 Sat (Calc) VBG Base Excess VBG Potassium Hgb O2 Saturation Sodium 139.0 143 Chloride 109.0 H 110 H Glucose 242 H Lactate 3.1 H Mechanical Rate 38 FiO2 60.0 Tidal Volume 450 PEEP 15 Potassium 4.8 Carbon Dioxide 22 Anion Gap 16 BUN 17 Creatinine 1.1 Est GFR ( Amer) > 60 Est GFR (Non-Af Amer) > 60 POC Glucose (mg/dL) 232 H Random Glucose 227 H Calcium 6.7 L* Ionized Calcium Phosphorus 3.3 Magnesium 1.7 Total Bilirubin 0.5 AST 153 H D ALT 133 H Alkaline Phosphatase 58 Ammonia Troponin I Total Protein 6.2 Albumin 3.5 Globulin 2.7 Albumin/Globulin Ratio 1.3 Procalcitonin Arterial Blood Potassium 4.6 Venous Blood Potassium 02/05/18 02/05/18 02/05/18 01:20 06:00 06:00 WBC 26.6 H* RBC 5.32 Hgb 15.5 Hct 45.1 MCV 84.8 MCH 29.1 MCHC 34.4 RDW 13.9 Plt Count 179 MPV 10.5 Gran % 88.0 H Lymph % (Auto) 5.7 L [place] % (Auto) 6.3 H Eos % (Auto) 0.0 L Baso % (Auto) 0.0 Gran # 23.36 H Lymph # (Auto) 1.5 [place] # (Auto) 1.7 H Eos # (Auto) 0.0 Baso # (Auto) 0.01 Neutrophils % (Manual) Band Neutrophils % Lymphocytes % (Manual) Monocytes % (Manual) Platelet Evaluation PT 14.4 H INR 1.26 H APTT > 400.0 H* pCO2 pO2 HCO3 ABG pH ABG Total CO2 ABG O2 Saturation ABG O2 Content ABG Base Excess ABG Hemoglobin ABG Carboxyhemoglobin POC ABG HHb (Measured) ABG Methemoglobin ABG O2 Capacity ABG Potassium VBG pH VBG pCO2 VBG HCO3 VBG Total CO2 VBG O2 Sat (Calc) VBG Base Excess VBG Potassium Hgb O2 Saturation Sodium 144 Chloride 109 H Glucose Lactate Mechanical Rate FiO2 Tidal Volume PEEP Potassium 4.5 Carbon Dioxide 20 L Anion Gap 19 BUN 18 Creatinine 1.1 Est GFR ( Amer) > 60 Est GFR (Non-Af Amer) > 60 POC Glucose (mg/dL) Random Glucose 234 H Calcium 6.8 L* Ionized Calcium Phosphorus 3.2 Magnesium 1.8 Total Bilirubin 0.5 AST 124 H ALT 130 H Alkaline Phosphatase 66 Ammonia Troponin I Total Protein 6.4 Albumin 3.6 Globulin 2.8 Albumin/Globulin Ratio 1.3 Procalcitonin Arterial Blood Potassium Venous Blood Potassium 02/05/18 02/05/18 02/05/18 06:00 06:10 06:30 WBC RBC Hgb Hct MCV MCH MCHC RDW Plt Count MPV Gran % Lymph % (Auto) [place] % (Auto) Eos % (Auto) Baso % (Auto) Gran # Lymph # (Auto) [place] # (Auto) Eos # (Auto) Baso # (Auto) Neutrophils % (Manual) Band Neutrophils % Lymphocytes % (Manual) Monocytes % (Manual) Platelet Evaluation PT INR APTT pCO2 52 H pO2 102.0 H 132 H HCO3 20.8 L ABG pH 7.21 L ABG Total CO2 22.4 ABG O2 Saturation 98.4 H ABG O2 Content ABG Base Excess -7.4 L ABG Hemoglobin ABG Carboxyhemoglobin POC ABG HHb (Measured) ABG Methemoglobin ABG O2 Capacity ABG Potassium 4.4 VBG pH 7.22 L VBG pCO2 51.0 VBG HCO3 20.9 L VBG Total CO2 22.5 VBG O2 Sat (Calc) 99.1 H VBG Base Excess -7.1 L VBG Potassium 4.8 Hgb O2 Saturation Sodium 140.0 139.0 Chloride 107.0 107.0 Glucose 259 H 255 H Lactate 3.7 H 3.8 H Mechanical Rate FiO2 60.0 21.0 Tidal Volume PEEP Potassium Carbon Dioxide Anion Gap BUN Creatinine Est GFR ( Amer) Est GFR (Non-Af Amer) POC Glucose (mg/dL) Random Glucose Calcium Ionized Calcium Phosphorus Magnesium Total Bilirubin AST ALT Alkaline Phosphatase Ammonia Troponin I 1.47 H* D Total Protein Albumin Globulin Albumin/Globulin Ratio Procalcitonin Arterial Blood Potassium 4.4 Venous Blood Potassium 4.8 02/05/18 02/05/18 09:00 11:37 WBC RBC Hgb Hct MCV MCH MCHC RDW Plt Count MPV Gran % Lymph % (Auto) [place] % (Auto) Eos % (Auto) Baso % (Auto) Gran # Lymph # (Auto) [place] # (Auto) Eos # (Auto) Baso # (Auto) Neutrophils % (Manual) Band Neutrophils % Lymphocytes % (Manual) Monocytes % (Manual) Platelet Evaluation PT 15.3 H INR 1.32 H APTT 195.6 H* pCO2 pO2 83 H HCO3 ABG pH ABG Total CO2 ABG O2 Saturation ABG O2 Content ABG Base Excess ABG Hemoglobin ABG Carboxyhemoglobin POC ABG HHb (Measured) ABG Methemoglobin ABG O2 Capacity ABG Potassium VBG pH 7.24 L VBG pCO2 54.0 VBG HCO3 23.1 VBG Total CO2 24.8 VBG O2 Sat (Calc) 97.3 H VBG Base Excess -4.9 L VBG Potassium 4.5 Hgb O2 Saturation Sodium 139.0 Chloride 110.0 H Glucose 279 H Lactate 3.7 H Mechanical Rate FiO2 21.0 Tidal Volume PEEP Potassium Carbon Dioxide Anion Gap BUN Creatinine Est GFR ( Amer) Est GFR (Non-Af Amer) POC Glucose (mg/dL) Random Glucose Calcium Ionized Calcium Phosphorus Magnesium Total Bilirubin AST ALT Alkaline Phosphatase Ammonia Troponin I Total Protein Albumin Globulin Albumin/Globulin Ratio Procalcitonin Arterial Blood Potassium Venous Blood Potassium 4.5 EKG/Cardiology Studies: Cardiology / EKG Studies 02/04/18 17:00 EKG [ELECTROCARDIOGRAM] Q6H Comment: Reason For Exam: cardiac arrest 02/05/18 06:00 ELECTROCARDIOGRAM Routine Comment: Reason For Exam: freezing protocol Fingerstick Blood Sugar Results: 234 Assessment/Plan - Assessment and Plan (Free Text) Plan: Mr Armenta, 57 M, Hx CABG & 4 stents, hypothyroidism, HTN, is now post cardiac arrest. Pt was coded in the field, found to have V fib, shockable rhythm , defibrillate, 2 rounds of epi, ROSC in 10 minutes. Targeted temperature initiated 10am 02/04/18. Now rewarm at 12 noon 02/05/18. Yesterday, temperature was slightly adjusted to 96 F because pt became unstable with arrthymia and further hypotension requiring levophed. CXR showed pulmonary edema, improved, but cannot rule out pneumonia A: Status post cardiac arrest Cardiogenic shock vs septic shock due to pneumonia Pulmonary edema, cardiogenic vs non-cardiogenic (ARDS due to neurogenic pulmonary edema secondary to anoxic brain injury) Hemetemsis possibly due to ischemia vs coagulopathy from targeted temperature therapy Neuro - Sedated Propofol 15. On Nimbex, titrate with a goal to subside shivering - EEG while on sedation (02/04): No seizure - Seizure precaution - Keppra 750 BID Pulm - PRVC 450. RR 38. PEEP 15. O2 40%. Permissive hypercapnia to prevent barotrauma Card - Re-warming protocol followed - Off levophed now. Milrinone gtt @ 0.375 (EF ~20s) - No need for lasix as U/O expected to go up as pt rewarm - On hep gtt for arrthymia; amiodarone gtt stopped at noon GI - Hemaemesis 500cc overnight; nothing today - Hb 16.5 --> 15.5 - OG tube on low intermittent suction - 3000 U/O yesterday. Expected more U/O as re-warm going on Endo - ISSS - med - aim sugar at 140-180 Heme - Continue to trend PT/APTT/INR, H/H, Plt, strict i/o ID - Cefepime. PVX: Hep gtt, Protonix gtt Dispo plan: - To prognosticate at least 72 hours after re-warmin. Repeat EEG after off sedation 2. CT Head vs MRI head to detect swelling? 3. Clinical manifestation s/d/r/w Dr Soto <Anderson Soto - Last Filed: 02/05/18 16:43> CCU Objective - Vital Signs / Intake & Output Vital Signs (Last 4 hours): Vital Signs Temp Pulse BP Pulse Ox 06/08/18 16:00 111 H 02/05/18 15:20 105 H 96 02/05/18 15:10 103 H 96 02/05/18 15:00 97.4 F L 109 H 140/74 96 02/05/18 14:50 107 H 95 02/05/18 14:40 112 H 94 L 02/05/18 14:35 97.2 F L 02/05/18 14:30 110 H 95 02/05/18 14:20 106 H 96 02/05/18 14:10 109 H 95 02/05/18 14:00 97 F L 106 H 140/73 95 02/05/18 13:50 105 H 96 02/05/18 13:40 118 H 98 02/05/18 13:30 109 H 99 02/05/18 13:20 118 H 99 02/05/18 13:10 118 H 99 02/05/18 13:00 122 H 126/72 98 02/05/18 12:50 117 H 100 Intake and Output (Last 8hrs): Intake & Output 02/05/18 02/05/18 02/05/18 06:59 14:59 22:59 Intake Total 409 1745 186 Output Total 500 Balance 409 1245 186 Intake: IV 409 1745 186 Left 1500 Right Forearm 200 Output: Gastric Amount 500 Stomach 500 - Medications Active Medications: Active Medications Generic Name Dose Route Start Last Admin Trade Name Freq PRN Reason Stop Dose Admin Albuterol/Ipratropium 3 ml 02/05/18 12:47 Duoneb 3 Mg/0.5 Mg (3 Ml) Ud IH [id number] PRN Shortness of Breath Artificial Tears 0 ml 02/04/18 15:56 02/05/18 08:39 Artificial Tears OU 1 drop Q8 PRN Administration Dry eyes Aspirin 81 mg 02/04/18 12:30 02/05/18 09:21 Aspirin Chewable PO Not Given DAILY DAMON Atorvastatin Calcium 40 mg 02/04/18 17:00 02/04/18 17:16 Lipitor PO Not Given DIN DAMON Hydrocortisone Sodium Succinate 50 mg 02/05/18 00:00 02/05/18 12:38 Solu-Cortef IVP 50 mg Q6 DAMON Administration Propofol 1,000 mg in 100 mls @ 3.538 mls/hr 02/04/18 05:03 06/08/18 15:36 Diprivan IV 10 mcg/kg/min .Q24H PRN 7.076 mls/hr TITRATE PER MD ORDER Administration Protocol 5 MCG/KG/MIN Cefepime HCl 2 gm in 100 mls @ 100 mls/hr 02/04/18 10:00 02/05/18 09:22 Maxipime 2gm IVPB 02/09/18 10:01 100 mls/hr Q12 DAMON Administration Protocol Pantoprazole Sodium 40 mg in 100 mls @ 20 mls/hr 02/04/18 09:00 02/05/18 14: 44 Protonix 40mg Ivpb IVPB 20 mls/hr .Q5H DAMON Administration Milrinone Lactate/Dextrose 100 mls @ 13.268 mls/hr 02/04/18 08:59 02/05/18 15 :29 Primacor 20mg/100ml D5w IV 0.375 mcg/kg/min .[id number] PRN 13.268 mls/hr TITRATE PER MD ORDER Administration Protocol 0.375 MCG/KG/MIN Cisatracurium Besylate 200 mg/ 270 mls @ 9.55 mls/hr 02/04/18 09:00 02/04/18 19:00 Sodium Chloride IV 1 mcg/kg/min .Q24H PRN 9.55 mls/hr TITRATE PER MD ORDER Titration Protocol 1 MCG/KG/MIN Heparin Sodium/Sodium Chloride 25,000 units in 250 mls @ 14.152 mls/hr 09:15 02/05/18 11:30 Heparin 79213 Units/250ml 1/2 Normal Saline IV 6 units/kg/hr .[id number] DAMON 7.076 mls/hr Protocol Titration 12 UNITS/KG/HR Levetiracetam 750 mg/ Sodium 107.5 mls @ 430 mls/hr 02/04/18 22:00 02/05/18 10:25 Chloride IV 430 mls/hr Q12 DAMON Administration NOREPINEPHRINE BIT/0.9 % NACL 4 mg in 250 mls @ 15 mls/hr 02/04/18 15:23 03/17 18:00 Levophed 4 Mg/ 250 Ml Ns Premixed IV 0 mcg/min .[id number] PRN 0 mls/hr TITRATE PER MD ORDER Titration Protocol 4 MCG/MIN Amiodarone HCl/Dextrose 360 mg in 200 mls @ 16.667 mls/hr 02/04/18 18:00 04/17 05:00 Nexterone 360 Mg In D5w 200 Ml (Premix) IV 16.667 mls/hr .Q12H DAMON Administration 0.5 MG/MIN Insulin Human Regular 0 units 02/05/18 12:00 02/05/18 12:34 Humulin R Med SC 3 units Q6 DAMON Administration Protocol - Patient Studies Lab Studies: Microbiology Studies 02/04/18 07:00 Urine Culture - Final Urine,Catheterized No Growth (<1,000 CFU/ML) 02/04/18 07:00 Blood Culture - Preliminary Blood-Venous NO GROWTH AFTER 24 HOURS 02/04/18 06:45 Blood Culture - Preliminary Blood-Venous NO GROWTH AFTER 24 HOURS Lab Studies 02/05/18 02/05/18 02/05/18 Range/Units 16:30 15:24 15:24 WBC 25.3 H* (4.5-11.0) 10^3/ul RBC 5.12 (3.5-6.1) 10^6/uL Hgb 15.1 (14.0-18.0) g/dL Hct 43.0 (42.0-52.0) % MCV 84.0 (80.0-105.0) fl MCH 29.5 (25.0-35.0) pg MCHC 35.1 (31.0-37.0) g/dl RDW 14.0 (11.5-14.5) % Plt Count 165 (120.0-450.0) 10^3/uL MPV 10.6 (7.0-11.0) fl Gran % 88.4 H (50.0-68.0) % Lymph % (Auto) 4.9 L (22.0-35.0) % [place] % (Auto) 6.7 H (1.0-6.0) % Eos % (Auto) 0.0 L (1.5-5.0) % Baso % (Auto) 0.0 (0.0-3.0) % Gran # 22.36 H (1.4-6.5) Lymph # (Auto) 1.2 (1.2-3.4) [place] # (Auto) 1.7 H (0.1-0.6) Eos # (Auto) 0.0 (0.0-0.7) Baso # (Auto) 0.01 (0.0-2.0) K/mm3 PT (9.4-12.5) SECONDS INR (0.93-1.08) APTT (25.1-36.5) Seconds pCO2 (35-45) mm/Hg pO2 71 H (80-100) mm/Hg HCO3 (21-28) mmol/L ABG pH (7.35-7.45) ABG Total CO2 (22-28) mmol.L ABG O2 Saturation (95-98) % ABG Base Excess (-2.0-3.0) mmol/L ABG Potassium (3.6-5.2) mmol/L VBG pH 7.32 (7.32-7.43) VBG pCO2 37.0 L (40-60) VBG HCO3 19.1 L (21-28) mmol/l VBG Total CO2 20.2 L (22-28) mmol.L VBG O2 Sat (Calc) 96.6 H (40-65) % VBG Base Excess -6.4 L (0.0-2.0) mmol/L VBG Potassium 3.3 L (3.6-5.2) mmol/L Sodium 143.0 143 (132-148) mmol/L Chloride 115.0 H 108 H (98-107) mmol/L Glucose 207 H (75-110) mg/dl Lactate 2.2 H (0.7-2.1) mmol/L Mechanical Rate FiO2 40.0 % Tidal Volume PEEP 15 Potassium 4.4 (3.6-5.0) mmol/L Carbon Dioxide 23 (21-33) mmol/L Anion Gap 16 (10-20) BUN 19 (7-21) mg/dL Creatinine 1.0 (0.8-1.5) mg/dl Est GFR ( Amer) > 60 Est GFR (Non-Af Amer) > 60 POC Glucose (mg/dL) (65-110) mg/dL Random Glucose 241 H (70-110) mg/dL Calcium 7.5 L (8.4-10.5) mg/dL Ionized Calcium (4.80-5.60) mg/dL Phosphorus 3.0 (2.5-4.5) mg/dL Magnesium 1.7 (1.7-2.2) mg/dL Total Bilirubin 0.7 (0.2-1.3) mg/dL AST 95 H D (17-59) U/L ALT 114 H (7-56) U/L Alkaline Phosphatase 61 (38-126) U/L Troponin I ng/mL Total Protein 6.2 (5.8-8.3) g/dL Albumin 3.4 (3.0-4.8) g/dL Globulin 2.8 gm/dL Albumin/Globulin Ratio 1.2 (1.1-1.8) Procalcitonin (0.19-0.49) NG/ML Arterial Blood Potassium (3.6-5.2) mmol/L Venous Blood Potassium 3.3 L (3.6-5.2) mmol/L Urine Color (YELLOW) Urine Appearance (CLEAR) Urine pH (4.7-8.0) Ur Specific [place] (1.005-1.035) Urine Protein (<30 mg/dL) mg/dL Urine Glucose (UA) (NEGATIVE) mg/dL Urine Ketones (NEGATIVE) mg/dL Urine Blood (NEGATIVE) Urine Nitrate (NEGATIVE) Urine Bilirubin (NEGATIVE) Urine Urobilinogen (<1 E.U./dL) E.U./dL Ur Leukocyte Esterase (NEGATIVE) Jimmy/uL Urine RBC (0-2) /hpf Urine WBC (0-6) /hpf Ur Epithelial Cells (0-5) /hpf Urine Bacteria (NEG) Coarse Granular Casts (0-2) /hpf 02/05/18 02/05/18 02/05/18 Range/Units 14:09 11:37 09:00 WBC (4.5-11.0) 10^3/ul RBC (3.5-6.1) 10^6/uL Hgb (14.0-18.0) g/dL Hct (42.0-52.0) % MCV (80.0-105.0) fl MCH (25.0-35.0) pg MCHC (31.0-37.0) g/dl RDW (11.5-14.5) % Plt Count (120.0-450.0) 10^3/uL MPV (7.0-11.0) fl Gran % (50.0-68.0) % Lymph % (Auto) (22.0-35.0) % [place] % (Auto) (1.0-6.0) % Eos % (Auto) (1.5-5.0) % Baso % (Auto) (0.0-3.0) % Gran # (1.4-6.5) Lymph # (Auto) (1.2-3.4) [place] # (Auto) (0.1-0.6) Eos # (Auto) (0.0-0.7) Baso # (Auto) (0.0-2.0) K/mm3 PT 15.3 H (9.4-12.5) SECONDS INR 1.32 H (0.93-1.08) APTT 195.6 H* (25.1-36.5) Seconds pCO2 (35-45) mm/Hg pO2 83 H (80-100) mm/Hg HCO3 (21-28) mmol/L ABG pH (7.35-7.45) ABG Total CO2 (22-28) mmol.L ABG O2 Saturation (95-98) % ABG Base Excess (-2.0-3.0) mmol/L ABG Potassium (3.6-5.2) mmol/L VBG pH 7.24 L (7.32-7.43) VBG pCO2 54.0 (40-60) VBG HCO3 23.1 (21-28) mmol/l VBG Total CO2 24.8 (22-28) mmol.L VBG O2 Sat (Calc) 97.3 H (40-65) % VBG Base Excess -4.9 L (0.0-2.0) mmol/L VBG Potassium 4.5 (3.6-5.2) mmol/L Sodium 139.0 (132-148) mmol/L Chloride 110.0 H (98-107) mmol/L Glucose 279 H (75-110) mg/dl Lactate 3.7 H (0.7-2.1) mmol/L Mechanical Rate FiO2 21.0 % Tidal Volume PEEP Potassium (3.6-5.0) mmol/L Carbon Dioxide (21-33) mmol/L Anion Gap (10-20) BUN (7-21) mg/dL Creatinine (0.8-1.5) mg/dl Est GFR ( Amer) Est GFR (Non-Af Amer) POC Glucose (mg/dL) (65-110) mg/dL Random Glucose (70-110) mg/dL Calcium (8.4-10.5) mg/dL Ionized Calcium (4.80-5.60) mg/dL Phosphorus (2.5-4.5) mg/dL Magnesium (1.7-2.2) mg/dL Total Bilirubin (0.2-1.3) mg/dL AST (17-59) U/L ALT (7-56) U/L Alkaline Phosphatase (38-126) U/L Troponin I ng/mL Total Protein (5.8-8.3) g/dL Albumin (3.0-4.8) g/dL Globulin gm/dL Albumin/Globulin Ratio (1.1-1.8) Procalcitonin (0.19-0.49) NG/ML Arterial Blood Potassium (3.6-5.2) mmol/L Venous Blood Potassium 4.5 (3.6-5.2) mmol/L Urine Color Dark yellow (YELLOW) Urine Appearance Cloudy (CLEAR) Urine pH 6.0 (4.7-8.0) Ur Specific [place] >= 1.030 (1.005-1.035) Urine Protein 30 H (<30 mg/dL) mg/dL Urine Glucose (UA) >=1000 (NEGATIVE) mg/dL Urine Ketones 15 H (NEGATIVE) mg/dL Urine Blood Large H (NEGATIVE) Urine Nitrate Negative (NEGATIVE) Urine Bilirubin Small H (NEGATIVE) Urine Urobilinogen 0.2 (<1 E.U./dL) E.U./dL Ur Leukocyte Esterase Negative (NEGATIVE) Jimmy/uL Urine RBC Tntc (0-2) /hpf Urine WBC 10 - 15 (0-6) /hpf Ur Epithelial Cells 4 - 5 (0-5) /hpf Urine Bacteria Mod (NEG) Coarse Granular Casts Small H (0-2) /hpf 18 18 02/05/18 Range/Units 06:30 06:10 06:00 WBC (4.5-11.0) 10^3/ul RBC (3.5-6.1) 10^6/uL Hgb (14.0-18.0) g/dL Hct (42.0-52.0) % MCV (80.0-105.0) fl MCH (25.0-35.0) pg MCHC (31.0-37.0) g/dl RDW (11.5-14.5) % Plt Count (120.0-450.0) 10^3/uL MPV (7.0-11.0) fl Gran % (50.0-68.0) % Lymph % (Auto) (22.0-35.0) % [place] % (Auto) (1.0-6.0) % Eos % (Auto) (1.5-5.0) % Baso % (Auto) (0.0-3.0) % Gran # (1.4-6.5) Lymph # (Auto) (1.2-3.4) [place] # (Auto) (0.1-0.6) Eos # (Auto) (0.0-0.7) Baso # (Auto) (0.0-2.0) K/mm3 PT (9.4-12.5) SECONDS INR (0.93-1.08) APTT (25.1-36.5) Seconds pCO2 52 H (35-45) mm/Hg pO2 132 H 102.0 H (80-100) mm/Hg HCO3 20.8 L (21-28) mmol/L ABG pH 7.21 L (7.35-7.45) ABG Total CO2 22.4 (22-28) mmol.L ABG O2 Saturation 98.4 H (95-98) % ABG Base Excess -7.4 L (-2.0-3.0) mmol/L ABG Potassium 4.4 (3.6-5.2) mmol/L VBG pH 7.22 L (7.32-7.43) VBG pCO2 51.0 (40-60) VBG HCO3 20.9 L (21-28) mmol/l VBG Total CO2 22.5 (22-28) mmol.L VBG O2 Sat (Calc) 99.1 H (40-65) % VBG Base Excess -7.1 L (0.0-2.0) mmol/L VBG Potassium 4.8 (3.6-5.2) mmol/L Sodium 139.0 140.0 (132-148) mmol/L Chloride 107.0 107.0 (98-107) mmol/L Glucose 255 H 259 H (75-110) mg/dl Lactate 3.8 H 3.7 H (0.7-2.1) mmol/L Mechanical Rate FiO2 21.0 60.0 % Tidal Volume PEEP Potassium (3.6-5.0) mmol/L Carbon Dioxide (21-33) mmol/L Anion Gap (10-20) BUN (7-21) mg/dL Creatinine (0.8-1.5) mg/dl Est GFR ( Amer) Est GFR (Non-Af Amer) POC Glucose (mg/dL) (65-110) mg/dL Random Glucose (70-110) mg/dL Calcium (8.4-10.5) mg/dL Ionized Calcium (4.80-5.60) mg/dL Phosphorus (2.5-4.5) mg/dL Magnesium (1.7-2.2) mg/dL Total Bilirubin (0.2-1.3) mg/dL AST (17-59) U/L ALT (7-56) U/L Alkaline Phosphatase (38-126) U/L Troponin I 1.47 H* D ng/mL Total Protein (5.8-8.3) g/dL Albumin (3.0-4.8) g/dL Globulin gm/dL Albumin/Globulin Ratio (1.1-1.8) Procalcitonin (0.19-0.49) NG/ML Arterial Blood Potassium 4.4 (3.6-5.2) mmol/L Venous Blood Potassium 4.8 (3.6-5.2) mmol/L Urine Color (YELLOW) Urine Appearance (CLEAR) Urine pH (4.7-8.0) Ur Specific [place] (1.005-1.035) Urine Protein (<30 mg/dL) mg/dL Urine Glucose (UA) (NEGATIVE) mg/dL Urine Ketones (NEGATIVE) mg/dL Urine Blood (NEGATIVE) Urine Nitrate (NEGATIVE) Urine Bilirubin (NEGATIVE) Urine Urobilinogen (<1 E.U./dL) E.U./dL Ur Leukocyte Esterase (NEGATIVE) Jimmy/uL Urine RBC (0-2) /hpf Urine WBC (0-6) /hpf Ur Epithelial Cells (0-5) /hpf Urine Bacteria (NEG) Coarse Granular Casts (0-2) /hpf 02/05/18 02/05/18 02/05/18 Range/Units 06:00 06:00 05:56 WBC 26.6 H* (4.5-11.0) 10^3/ul RBC 5.32 (3.5-6.1) 10^6/uL Hgb 15.5 (14.0-18.0) g/dL Hct 45.1 (42.0-52.0) % MCV 84.8 (80.0-105.0) fl MCH 29.1 (25.0-35.0) pg MCHC 34.4 (31.0-37.0) g/dl RDW 13.9 (11.5-14.5) % Plt Count 179 (120.0-450.0) 10^3/uL MPV 10.5 (7.0-11.0) fl Gran % 88.0 H (50.0-68.0) % Lymph % (Auto) 5.7 L (22.0-35.0) % [place] % (Auto) 6.3 H (1.0-6.0) % Eos % (Auto) 0.0 L (1.5-5.0) % Baso % (Auto) 0.0 (0.0-3.0) % Gran # 23.36 H (1.4-6.5) Lymph # (Auto) 1.5 (1.2-3.4) [place] # (Auto) 1.7 H (0.1-0.6) Eos # (Auto) 0.0 (0.0-0.7) Baso # (Auto) 0.01 (0.0-2.0) K/mm3 PT (9.4-12.5) SECONDS INR (0.93-1.08) APTT (25.1-36.5) Seconds pCO2 (35-45) mm/Hg pO2 (80-100) mm/Hg HCO3 (21-28) mmol/L ABG pH (7.35-7.45) ABG Total CO2 (22-28) mmol.L ABG O2 Saturation (95-98) % ABG Base Excess (-2.0-3.0) mmol/L ABG Potassium (3.6-5.2) mmol/L VBG pH (7.32-7.43) VBG pCO2 (40-60) VBG HCO3 (21-28) mmol/l VBG Total CO2 (22-28) mmol.L VBG O2 Sat (Calc) (40-65) % VBG Base Excess (0.0-2.0) mmol/L VBG Potassium (3.6-5.2) mmol/L Sodium 144 (132-148) mmol/L Chloride 109 H (98-107) mmol/L Glucose (75-110) mg/dl Lactate (0.7-2.1) mmol/L Mechanical Rate FiO2 % Tidal Volume PEEP Potassium 4.5 (3.6-5.0) mmol/L Carbon Dioxide 20 L (21-33) mmol/L Anion Gap 19 (10-20) BUN 18 (7-21) mg/dL Creatinine 1.1 (0.8-1.5) mg/dl Est GFR ( Amer) > 60 Est GFR (Non-Af Amer) > 60 POC Glucose (mg/dL) 225 H (65-110) mg/dL Random Glucose 234 H (70-110) mg/dL Calcium 6.8 L* (8.4-10.5) mg/dL Ionized Calcium (4.80-5.60) mg/dL Phosphorus 3.2 (2.5-4.5) mg/dL Magnesium 1.8 (1.7-2.2) mg/dL Total Bilirubin 0.5 (0.2-1.3) mg/dL AST 124 H (17-59) U/L ALT 130 H (7-56) U/L Alkaline Phosphatase 66 (38-126) U/L Troponin I ng/mL Total Protein 6.4 (5.8-8.3) g/dL Albumin 3.6 (3.0-4.8) g/dL Globulin 2.8 gm/dL Albumin/Globulin Ratio 1.3 (1.1-1.8) Procalcitonin (0.19-0.49) NG/ML Arterial Blood Potassium (3.6-5.2) mmol/L Venous Blood Potassium (3.6-5.2) mmol/L Urine Color (YELLOW) Urine Appearance (CLEAR) Urine pH (4.7-8.0) Ur Specific [place] (1.005-1.035) Urine Protein (<30 mg/dL) mg/dL Urine Glucose (UA) (NEGATIVE) mg/dL Urine Ketones (NEGATIVE) mg/dL Urine Blood (NEGATIVE) Urine Nitrate (NEGATIVE) Urine Bilirubin (NEGATIVE) Urine Urobilinogen (<1 E.U./dL) E.U./dL Ur Leukocyte Esterase (NEGATIVE) Jimmy/uL Urine RBC (0-2) /hpf Urine WBC (0-6) /hpf Ur Epithelial Cells (0-5) /hpf Urine Bacteria (NEG) Coarse Granular Casts (0-2) /hpf 02/05/18 02/05/18 02/05/18 Range/Units 04:11 01:20 00:30 WBC (4.5-11.0) 10^3/ul RBC (3.5-6.1) 10^6/uL Hgb (14.0-18.0) g/dL Hct (42.0-52.0) % MCV (80.0-105.0) fl MCH (25.0-35.0) pg MCHC (31.0-37.0) g/dl RDW (11.5-14.5) % Plt Count (120.0-450.0) 10^3/uL MPV (7.0-11.0) fl Gran % (50.0-68.0) % Lymph % (Auto) (22.0-35.0) % [place] % (Auto) (1.0-6.0) % Eos % (Auto) (1.5-5.0) % Baso % (Auto) (0.0-3.0) % Gran # (1.4-6.5) Lymph # (Auto) (1.2-3.4) [place] # (Auto) (0.1-0.6) Eos # (Auto) (0.0-0.7) Baso # (Auto) (0.0-2.0) K/mm3 PT 14.4 H (9.4-12.5) SECONDS INR 1.26 H (0.93-1.08) APTT > 400.0 H* (25.1-36.5) Seconds pCO2 (35-45) mm/Hg pO2 (80-100) mm/Hg HCO3 (21-28) mmol/L ABG pH (7.35-7.45) ABG Total CO2 (22-28) mmol.L ABG O2 Saturation (95-98) % ABG Base Excess (-2.0-3.0) mmol/L ABG Potassium (3.6-5.2) mmol/L VBG pH (7.32-7.43) VBG pCO2 (40-60) VBG HCO3 (21-28) mmol/l VBG Total CO2 (22-28) mmol.L VBG O2 Sat (Calc) (40-65) % VBG Base Excess (0.0-2.0) mmol/L VBG Potassium (3.6-5.2) mmol/L Sodium 143 (132-148) mmol/L Chloride 110 H (98-107) mmol/L Glucose (75-110) mg/dl Lactate (0.7-2.1) mmol/L Mechanical Rate FiO2 % Tidal Volume PEEP Potassium 4.8 (3.6-5.0) mmol/L Carbon Dioxide 22 (21-33) mmol/L Anion Gap 16 (10-20) BUN 17 (7-21) mg/dL Creatinine 1.1 (0.8-1.5) mg/dl Est GFR ( Amer) > 60 Est GFR (Non-Af Amer) > 60 POC Glucose (mg/dL) 214 H (65-110) mg/dL Random Glucose 227 H (70-110) mg/dL Calcium 6.7 L* (8.4-10.5) mg/dL Ionized Calcium (4.80-5.60) mg/dL Phosphorus 3.3 (2.5-4.5) mg/dL Magnesium 1.7 (1.7-2.2) mg/dL Total Bilirubin 0.5 (0.2-1.3) mg/dL AST 153 H D (17-59) U/L ALT 133 H (7-56) U/L Alkaline Phosphatase 58 (38-126) U/L Troponin I ng/mL Total Protein 6.2 (5.8-8.3) g/dL Albumin 3.5 (3.0-4.8) g/dL Globulin 2.7 gm/dL Albumin/Globulin Ratio 1.3 (1.1-1.8) Procalcitonin (0.19-0.49) NG/ML Arterial Blood Potassium (3.6-5.2) mmol/L Venous Blood Potassium (3.6-5.2) mmol/L Urine Color (YELLOW) Urine Appearance (CLEAR) Urine pH (4.7-8.0) Ur Specific [place] (1.005-1.035) Urine Protein (<30 mg/dL) mg/dL Urine Glucose (UA) (NEGATIVE) mg/dL Urine Ketones (NEGATIVE) mg/dL Urine Blood (NEGATIVE) Urine Nitrate (NEGATIVE) Urine Bilirubin (NEGATIVE) Urine Urobilinogen (<1 E.U./dL) E.U./dL Ur Leukocyte Esterase (NEGATIVE) Jimmy/uL Urine RBC (0-2) /hpf Urine WBC (0-6) /hpf Ur Epithelial Cells (0-5) /hpf Urine Bacteria (NEG) Coarse Granular Casts (0-2) /hpf 02/05/18 02/05/18 02/04/18 Range/Units 00:25 00:09 23:00 WBC (4.5-11.0) 10^3/ul RBC (3.5-6.1) 10^6/uL Hgb (14.0-18.0) g/dL Hct (42.0-52.0) % MCV (80.0-105.0) fl MCH (25.0-35.0) pg MCHC (31.0-37.0) g/dl RDW (11.5-14.5) % Plt Count (120.0-450.0) 10^3/uL MPV (7.0-11.0) fl Gran % (50.0-68.0) % Lymph % (Auto) (22.0-35.0) % [place] % (Auto) (1.0-6.0) % Eos % (Auto) (1.5-5.0) % Baso % (Auto) (0.0-3.0) % Gran # (1.4-6.5) Lymph # (Auto) (1.2-3.4) [place] # (Auto) (0.1-0.6) Eos # (Auto) (0.0-0.7) Baso # (Auto) (0.0-2.0) K/mm3 PT (9.4-12.5) SECONDS INR (0.93-1.08) APTT > 400.0 H* (25.1-36.5) Seconds pCO2 53 H (35-45) mm/Hg pO2 71.0 L (80-100) mm/Hg HCO3 20.2 L (21-28) mmol/L ABG pH 7.19 L* (7.35-7.45) ABG Total CO2 21.8 L (22-28) mmol.L ABG O2 Saturation 95.5 (95-98) % ABG Base Excess -8.3 L (-2.0-3.0) mmol/L ABG Potassium 4.6 (3.6-5.2) mmol/L VBG pH (7.32-7.43) VBG pCO2 (40-60) VBG HCO3 (21-28) mmol/l VBG Total CO2 (22-28) mmol.L VBG O2 Sat (Calc) (40-65) % VBG Base Excess (0.0-2.0) mmol/L VBG Potassium (3.6-5.2) mmol/L Sodium 139.0 (132-148) mmol/L Chloride 109.0 H (98-107) mmol/L Glucose 242 H (75-110) mg/dl Lactate 3.1 H (0.7-2.1) mmol/L Mechanical Rate 38 FiO2 60.0 % Tidal Volume 450 PEEP 15 Potassium (3.6-5.0) mmol/L Carbon Dioxide (21-33) mmol/L Anion Gap (10-20) BUN (7-21) mg/dL Creatinine (0.8-1.5) mg/dl Est GFR ( Amer) Est GFR (Non-Af Amer) POC Glucose (mg/dL) 232 H (65-110) mg/dL Random Glucose (70-110) mg/dL Calcium (8.4-10.5) mg/dL Ionized Calcium (4.80-5.60) mg/dL Phosphorus (2.5-4.5) mg/dL Magnesium (1.7-2.2) mg/dL Total Bilirubin (0.2-1.3) mg/dL AST (17-59) U/L ALT (7-56) U/L Alkaline Phosphatase (38-126) U/L Troponin I ng/mL Total Protein (5.8-8.3) g/dL Albumin (3.0-4.8) g/dL Globulin gm/dL Albumin/Globulin Ratio (1.1-1.8) Procalcitonin (0.19-0.49) NG/ML Arterial Blood Potassium 4.6 (3.6-5.2) mmol/L Venous Blood Potassium (3.6-5.2) mmol/L Urine Color (YELLOW) Urine Appearance (CLEAR) Urine pH (4.7-8.0) Ur Specific [place] (1.005-1.035) Urine Protein (<30 mg/dL) mg/dL Urine Glucose (UA) (NEGATIVE) mg/dL Urine Ketones (NEGATIVE) mg/dL Urine Blood (NEGATIVE) Urine Nitrate (NEGATIVE) Urine Bilirubin (NEGATIVE) Urine Urobilinogen (<1 E.U./dL) E.U./dL Ur Leukocyte Esterase (NEGATIVE) Jimmy/uL Urine RBC (0-2) /hpf Urine WBC (0-6) /hpf Ur Epithelial Cells (0-5) /hpf Urine Bacteria (NEG) Coarse Granular Casts (0-2) /hpf 02/04/18 02/04/18 02/04/18 Range/Units 18:35 17:25 17:25 WBC (4.5-11.0) 10^3/ul RBC (3.5-6.1) 10^6/uL Hgb (14.0-18.0) g/dL Hct (42.0-52.0) % MCV (80.0-105.0) fl MCH (25.0-35.0) pg MCHC (31.0-37.0) g/dl RDW (11.5-14.5) % Plt Count (120.0-450.0) 10^3/uL MPV (7.0-11.0) fl Gran % (50.0-68.0) % Lymph % (Auto) (22.0-35.0) % [place] % (Auto) (1.0-6.0) % Eos % (Auto) (1.5-5.0) % Baso % (Auto) (0.0-3.0) % Gran # (1.4-6.5) Lymph # (Auto) (1.2-3.4) [place] # (Auto) (0.1-0.6) Eos # (Auto) (0.0-0.7) Baso # (Auto) (0.0-2.0) K/mm3 PT (9.4-12.5) SECONDS INR (0.93-1.08) APTT (25.1-36.5) Seconds pCO2 (35-45) mm/Hg pO2 (80-100) mm/Hg HCO3 (21-28) mmol/L ABG pH (7.35-7.45) ABG Total CO2 (22-28) mmol.L ABG O2 Saturation (95-98) % ABG Base Excess (-2.0-3.0) mmol/L ABG Potassium (3.6-5.2) mmol/L VBG pH (7.32-7.43) VBG pCO2 (40-60) VBG HCO3 (21-28) mmol/l VBG Total CO2 (22-28) mmol.L VBG O2 Sat (Calc) (40-65) % VBG Base Excess (0.0-2.0) mmol/L VBG Potassium (3.6-5.2) mmol/L Sodium 146 (132-148) mmol/L Chloride 108 H (98-107) mmol/L Glucose (75-110) mg/dl Lactate (0.7-2.1) mmol/L Mechanical Rate FiO2 % Tidal Volume PEEP Potassium 3.6 (3.6-5.0) mmol/L Carbon Dioxide 23 (21-33) mmol/L Anion Gap 18 (10-20) BUN 17 (7-21) mg/dL Creatinine 1.3 (0.8-1.5) mg/dl Est GFR ( Amer) > 60 Est GFR (Non-Af Amer) 57 POC Glucose (mg/dL) 228 H (65-110) mg/dL Random Glucose 241 H (70-110) mg/dL Calcium 6.6 L* (8.4-10.5) mg/dL Ionized Calcium 3.3 L (4.80-5.60) mg/dL Phosphorus 4.3 (2.5-4.5) mg/dL Magnesium 1.9 (1.7-2.2) mg/dL Total Bilirubin 0.7 (0.2-1.3) mg/dL AST 270 H (17-59) U/L ALT 149 H (7-56) U/L Alkaline Phosphatase 66 (38-126) U/L Troponin I ng/mL Total Protein 6.0 (5.8-8.3) g/dL Albumin 3.2 (3.0-4.8) g/dL Globulin 2.7 gm/dL Albumin/Globulin Ratio 1.2 (1.1-1.8) Procalcitonin (0.19-0.49) NG/ML Arterial Blood Potassium (3.6-5.2) mmol/L Venous Blood Potassium (3.6-5.2) mmol/L Urine Color (YELLOW) Urine Appearance (CLEAR) Urine pH (4.7-8.0) Ur Specific [place] (1.005-1.035) Urine Protein (<30 mg/dL) mg/dL Urine Glucose (UA) (NEGATIVE) mg/dL Urine Ketones (NEGATIVE) mg/dL Urine Blood (NEGATIVE) Urine Nitrate (NEGATIVE) Urine Bilirubin (NEGATIVE) Urine Urobilinogen (<1 E.U./dL) E.U./dL Ur Leukocyte Esterase (NEGATIVE) Jimmy/uL Urine RBC (0-2) /hpf Urine WBC (0-6) /hpf Ur Epithelial Cells (0-5) /hpf Urine Bacteria (NEG) Coarse Granular Casts (0-2) /hpf 02/04/18 02/04/18 02/04/18 Range/Units 17:25 16:40 16:20 WBC 29.8 H* (4.5-11.0) 10^3/ul RBC 5.59 (3.5-6.1) 10^6/uL Hgb 16.7 (14.0-18.0) g/dL Hct 48.1 (42.0-52.0) % MCV 86.0 (80.0-105.0) fl MCH 29.9 (25.0-35.0) pg MCHC 34.7 (31.0-37.0) g/dl RDW 13.9 (11.5-14.5) % Plt Count 226 (120.0-450.0) 10^3/uL MPV 10.4 (7.0-11.0) fl Gran % (50.0-68.0) % Lymph % (Auto) (22.0-35.0) % [place] % (Auto) (1.0-6.0) % Eos % (Auto) (1.5-5.0) % Baso % (Auto) 0.1 (0.0-3.0) % Gran # (1.4-6.5) Lymph # (Auto) (1.2-3.4) [place] # (Auto) (0.1-0.6) Eos # (Auto) (0.0-0.7) Baso # (Auto) 0.02 (0.0-2.0) K/mm3 PT 14.1 H (9.4-12.5) SECONDS INR 1.23 H (0.93-1.08) APTT (25.1-36.5) Seconds pCO2 64 H (35-45) mm/Hg pO2 70.0 L (80-100) mm/Hg HCO3 19.4 L (21-28) mmol/L ABG pH 7.09 L* (7.35-7.45) ABG Total CO2 21.4 L (22-28) mmol.L ABG O2 Saturation 94.0 L (95-98) % ABG Base Excess -11.2 L (-2.0-3.0) mmol/L ABG Potassium 3.1 L (3.6-5.2) mmol/L VBG pH (7.32-7.43) VBG pCO2 (40-60) VBG HCO3 (21-28) mmol/l VBG Total CO2 (22-28) mmol.L VBG O2 Sat (Calc) (40-65) % VBG Base Excess (0.0-2.0) mmol/L VBG Potassium (3.6-5.2) mmol/L Sodium 141.0 (132-148) mmol/L Chloride 113.0 H (98-107) mmol/L Glucose 264 H (75-110) mg/dl Lactate 3.4 H (0.7-2.1) mmol/L Mechanical Rate FiO2 80.0 % Tidal Volume PEEP Potassium (3.6-5.0) mmol/L Carbon Dioxide (21-33) mmol/L Anion Gap (10-20) BUN (7-21) mg/dL Creatinine (0.8-1.5) mg/dl Est GFR ( Amer) Est GFR (Non-Af Amer) POC Glucose (mg/dL) (65-110) mg/dL Random Glucose (70-110) mg/dL Calcium (8.4-10.5) mg/dL Ionized Calcium (4.80-5.60) mg/dL Phosphorus (2.5-4.5) mg/dL Magnesium (1.7-2.2) mg/dL Total Bilirubin (0.2-1.3) mg/dL AST (17-59) U/L ALT (7-56) U/L Alkaline Phosphatase (38-126) U/L Troponin I ng/mL Total Protein (5.8-8.3) g/dL Albumin (3.0-4.8) g/dL Globulin gm/dL Albumin/Globulin Ratio (1.1-1.8) Procalcitonin (0.19-0.49) NG/ML Arterial Blood Potassium 3.1 L (3.6-5.2) mmol/L Venous Blood Potassium (3.6-5.2) mmol/L Urine Color (YELLOW) Urine Appearance (CLEAR) Urine pH (4.7-8.0) Ur Specific [place] (1.005-1.035) Urine Protein (<30 mg/dL) mg/dL Urine Glucose (UA) (NEGATIVE) mg/dL Urine Ketones (NEGATIVE) mg/dL Urine Blood (NEGATIVE) Urine Nitrate (NEGATIVE) Urine Bilirubin (NEGATIVE) Urine Urobilinogen (<1 E.U./dL) E.U./dL Ur Leukocyte Esterase (NEGATIVE) Jimmy/uL Urine RBC (0-2) /hpf Urine WBC (0-6) /hpf Ur Epithelial Cells (0-5) /hpf Urine Bacteria (NEG) Coarse Granular Casts (0-2) /hpf 02/04/18 Range/Units 12:00 WBC (4.5-11.0) 10^3/ul RBC (3.5-6.1) 10^6/uL Hgb (14.0-18.0) g/dL Hct (42.0-52.0) % MCV (80.0-105.0) fl MCH (25.0-35.0) pg MCHC (31.0-37.0) g/dl RDW (11.5-14.5) % Plt Count (120.0-450.0) 10^3/uL MPV (7.0-11.0) fl Gran % (50.0-68.0) % Lymph % (Auto) (22.0-35.0) % [place] % (Auto) (1.0-6.0) % Eos % (Auto) (1.5-5.0) % Baso % (Auto) (0.0-3.0) % Gran # (1.4-6.5) Lymph # (Auto) (1.2-3.4) [place] # (Auto) (0.1-0.6) Eos # (Auto) (0.0-0.7) Baso # (Auto) (0.0-2.0) K/mm3 PT (9.4-12.5) SECONDS INR (0.93-1.08) APTT (25.1-36.5) Seconds pCO2 (35-45) mm/Hg pO2 (80-100) mm/Hg HCO3 (21-28) mmol/L ABG pH (7.35-7.45) ABG Total CO2 (22-28) mmol.L ABG O2 Saturation (95-98) % ABG Base Excess (-2.0-3.0) mmol/L ABG Potassium (3.6-5.2) mmol/L VBG pH (7.32-7.43) VBG pCO2 (40-60) VBG HCO3 (21-28) mmol/l VBG Total CO2 (22-28) mmol.L VBG O2 Sat (Calc) (40-65) % VBG Base Excess (0.0-2.0) mmol/L VBG Potassium (3.6-5.2) mmol/L Sodium (132-148) mmol/L Chloride (98-107) mmol/L Glucose (75-110) mg/dl Lactate (0.7-2.1) mmol/L Mechanical Rate FiO2 % Tidal Volume PEEP Potassium (3.6-5.0) mmol/L Carbon Dioxide (21-33) mmol/L Anion Gap (10-20) BUN (7-21) mg/dL Creatinine (0.8-1.5) mg/dl Est GFR ( Amer) Est GFR (Non-Af Amer) POC Glucose (mg/dL) (65-110) mg/dL Random Glucose (70-110) mg/dL Calcium (8.4-10.5) mg/dL Ionized Calcium (4.80-5.60) mg/dL Phosphorus (2.5-4.5) mg/dL Magnesium (1.7-2.2) mg/dL Total Bilirubin (0.2-1.3) mg/dL AST (17-59) U/L ALT (7-56) U/L Alkaline Phosphatase (38-126) U/L Troponin I ng/mL Total Protein (5.8-8.3) g/dL Albumin (3.0-4.8) g/dL Globulin gm/dL Albumin/Globulin Ratio (1.1-1.8) Procalcitonin 2.75 H (0.19-0.49) NG/ML Arterial Blood Potassium (3.6-5.2) mmol/L Venous Blood Potassium (3.6-5.2) mmol/L Urine Color (YELLOW) Urine Appearance (CLEAR) Urine pH (4.7-8.0) Ur Specific [place] (1.005-1.035) Urine Protein (<30 mg/dL) mg/dL Urine Glucose (UA) (NEGATIVE) mg/dL Urine Ketones (NEGATIVE) mg/dL Urine Blood (NEGATIVE) Urine Nitrate (NEGATIVE) Urine Bilirubin (NEGATIVE) Urine Urobilinogen (<1 E.U./dL) E.U./dL Ur Leukocyte Esterase (NEGATIVE) Jimmy/uL Urine RBC (0-2) /hpf Urine WBC (0-6) /hpf Ur Epithelial Cells (0-5) /hpf Urine Bacteria (NEG) Coarse Granular Casts (0-2) /hpf Laboratory Results - last 24 hr 02/04/18 02/04/18 02/04/18 12:00 16:20 16:40 WBC RBC Hgb Hct MCV MCH MCHC RDW Plt Count MPV Gran % Lymph % (Auto) [place] % (Auto) Eos % (Auto) Baso % (Auto) Gran # Lymph # (Auto) [place] # (Auto) Eos # (Auto) Baso # (Auto) PT 14.1 H INR 1.23 H APTT pCO2 64 H pO2 70.0 L HCO3 19.4 L ABG pH 7.09 L* ABG Total CO2 21.4 L ABG O2 Saturation 94.0 L ABG Base Excess -11.2 L ABG Potassium 3.1 L VBG pH VBG pCO2 VBG HCO3 VBG Total CO2 VBG O2 Sat (Calc) VBG Base Excess VBG Potassium Sodium 141.0 Chloride 113.0 H Glucose 264 H Lactate 3.4 H Mechanical Rate FiO2 80.0 Tidal Volume PEEP Potassium Carbon Dioxide Anion Gap BUN Creatinine Est GFR ( Amer) Est GFR (Non-Af Amer) POC Glucose (mg/dL) Random Glucose Calcium Ionized Calcium Phosphorus Magnesium Total Bilirubin AST ALT Alkaline Phosphatase Troponin I Total Protein Albumin Globulin Albumin/Globulin Ratio Procalcitonin 2.75 H Arterial Blood Potassium 3.1 L Venous Blood Potassium Urine Color Urine Appearance Urine pH Ur Specific [place] Urine Protein Urine Glucose (UA) Urine Ketones Urine Blood Urine Nitrate Urine Bilirubin Urine Urobilinogen Ur Leukocyte Esterase Urine RBC Urine WBC Ur Epithelial Cells Urine Bacteria Coarse Granular Casts 02/04/18 02/04/18 02/04/18 17:25 17:25 17:25 WBC 29.8 H* RBC 5.59 Hgb 16.7 Hct 48.1 MCV 86.0 MCH 29.9 MCHC 34.7 RDW 13.9 Plt Count 226 MPV 10.4 Gran % Lymph % (Auto) [place] % (Auto) Eos % (Auto) Baso % (Auto) 0.1 Gran # Lymph # (Auto) [place] # (Auto) Eos # (Auto) Baso # (Auto) 0.02 PT INR APTT pCO2 pO2 HCO3 ABG pH ABG Total CO2 ABG O2 Saturation ABG Base Excess ABG Potassium VBG pH VBG pCO2 VBG HCO3 VBG Total CO2 VBG O2 Sat (Calc) VBG Base Excess VBG Potassium Sodium 146 Chloride 108 H Glucose Lactate Mechanical Rate FiO2 Tidal Volume PEEP Potassium 3.6 Carbon Dioxide 23 Anion Gap 18 BUN 17 Creatinine 1.3 Est GFR ( Amer) > 60 Est GFR (Non-Af Amer) 57 POC Glucose (mg/dL) Random Glucose 241 H Calcium 6.6 L* Ionized Calcium 3.3 L Phosphorus 4.3 Magnesium 1.9 Total Bilirubin 0.7 AST 270 H ALT 149 H Alkaline Phosphatase 66 Troponin I Total Protein 6.0 Albumin 3.2 Globulin 2.7 Albumin/Globulin Ratio 1.2 Procalcitonin Arterial Blood Potassium Venous Blood Potassium Urine Color Urine Appearance Urine pH Ur Specific [place] Urine Protein Urine Glucose (UA) Urine Ketones Urine Blood Urine Nitrate Urine Bilirubin Urine Urobilinogen Ur Leukocyte Esterase Urine RBC Urine WBC Ur Epithelial Cells Urine Bacteria Coarse Granular Casts 02/04/18 02/04/18 02/05/18 18:35 23:00 00:09 WBC RBC Hgb Hct MCV MCH MCHC RDW Plt Count MPV Gran % Lymph % (Auto) [place] % (Auto) Eos % (Auto) Baso % (Auto) Gran # Lymph # (Auto) [place] # (Auto) Eos # (Auto) Baso # (Auto) PT INR APTT > 400.0 H* pCO2 pO2 HCO3 ABG pH ABG Total CO2 ABG O2 Saturation ABG Base Excess ABG Potassium VBG pH VBG pCO2 VBG HCO3 VBG Total CO2 VBG O2 Sat (Calc) VBG Base Excess VBG Potassium Sodium Chloride Glucose Lactate Mechanical Rate FiO2 Tidal Volume PEEP Potassium Carbon Dioxide Anion Gap BUN Creatinine Est GFR ( Amer) Est GFR (Non-Af Amer) POC Glucose (mg/dL) 228 H 232 H Random Glucose Calcium Ionized Calcium Phosphorus Magnesium Total Bilirubin AST ALT Alkaline Phosphatase Troponin I Total Protein Albumin Globulin Albumin/Globulin Ratio Procalcitonin Arterial Blood Potassium Venous Blood Potassium Urine Color Urine Appearance Urine pH Ur Specific [place] Urine Protein Urine Glucose (UA) Urine Ketones Urine Blood Urine Nitrate Urine Bilirubin Urine Urobilinogen Ur Leukocyte Esterase Urine RBC Urine WBC Ur Epithelial Cells Urine Bacteria Coarse Granular Casts 02/05/18 02/05/18 02/05/18 00:25 00:30 01:20 WBC RBC Hgb Hct MCV MCH MCHC RDW Plt Count MPV Gran % Lymph % (Auto) [place] % (Auto) Eos % (Auto) Baso % (Auto) Gran # Lymph # (Auto) [place] # (Auto) Eos # (Auto) Baso # (Auto) PT 14.4 H INR 1.26 H APTT > 400.0 H* pCO2 53 H pO2 71.0 L HCO3 20.2 L ABG pH 7.19 L* ABG Total CO2 21.8 L ABG O2 Saturation 95.5 ABG Base Excess -8.3 L ABG Potassium 4.6 VBG pH VBG pCO2 VBG HCO3 VBG Total CO2 VBG O2 Sat (Calc) VBG Base Excess VBG Potassium Sodium 139.0 143 Chloride 109.0 H 110 H Glucose 242 H Lactate 3.1 H Mechanical Rate 38 FiO2 60.0 Tidal Volume 450 PEEP 15 Potassium 4.8 Carbon Dioxide 22 Anion Gap 16 BUN 17 Creatinine 1.1 Est GFR ( Amer) > 60 Est GFR (Non-Af Amer) > 60 POC Glucose (mg/dL) Random Glucose 227 H Calcium 6.7 L* Ionized Calcium Phosphorus 3.3 Magnesium 1.7 Total Bilirubin 0.5 AST 153 H D ALT 133 H Alkaline Phosphatase 58 Troponin I Total Protein 6.2 Albumin 3.5 Globulin 2.7 Albumin/Globulin Ratio 1.3 Procalcitonin Arterial Blood Potassium 4.6 Venous Blood Potassium Urine Color Urine Appearance Urine pH Ur Specific [place] Urine Protein Urine Glucose (UA) Urine Ketones Urine Blood Urine Nitrate Urine Bilirubin Urine Urobilinogen Ur Leukocyte Esterase Urine RBC Urine WBC Ur Epithelial Cells Urine Bacteria Coarse Granular Casts 02/05/18 02/05/18 02/05/18 04:11 05:56 06:00 WBC 26.6 H* RBC 5.32 Hgb 15.5 Hct 45.1 MCV 84.8 MCH 29.1 MCHC 34.4 RDW 13.9 Plt Count 179 MPV 10.5 Gran % 88.0 H Lymph % (Auto) 5.7 L [place] % (Auto) 6.3 H Eos % (Auto) 0.0 L Baso % (Auto) 0.0 Gran # 23.36 H Lymph # (Auto) 1.5 [place] # (Auto) 1.7 H Eos # (Auto) 0.0 Baso # (Auto) 0.01 PT INR APTT pCO2 pO2 HCO3 ABG pH ABG Total CO2 ABG O2 Saturation ABG Base Excess ABG Potassium VBG pH VBG pCO2 VBG HCO3 VBG Total CO2 VBG O2 Sat (Calc) VBG Base Excess VBG Potassium Sodium Chloride Glucose Lactate Mechanical Rate FiO2 Tidal Volume PEEP Potassium Carbon Dioxide Anion Gap BUN Creatinine Est GFR ( Amer) Est GFR (Non-Af Amer) POC Glucose (mg/dL) 214 H 225 H Random Glucose Calcium Ionized Calcium Phosphorus Magnesium Total Bilirubin AST ALT Alkaline Phosphatase Troponin I Total Protein Albumin Globulin Albumin/Globulin Ratio Procalcitonin Arterial Blood Potassium Venous Blood Potassium Urine Color Urine Appearance Urine pH Ur Specific [place] Urine Protein Urine Glucose (UA) Urine Ketones Urine Blood Urine Nitrate Urine Bilirubin Urine Urobilinogen Ur Leukocyte Esterase Urine RBC Urine WBC Ur Epithelial Cells Urine Bacteria Coarse Granular Casts 02/05/18 02/05/18 02/05/18 06:00 06:00 06:10 WBC RBC Hgb Hct MCV MCH MCHC RDW Plt Count MPV Gran % Lymph % (Auto) [place] % (Auto) Eos % (Auto) Baso % (Auto) Gran # Lymph # (Auto) [place] # (Auto) Eos # (Auto) Baso # (Auto) PT INR APTT pCO2 52 H pO2 102.0 H HCO3 20.8 L ABG pH 7.21 L ABG Total CO2 22.4 ABG O2 Saturation 98.4 H ABG Base Excess -7.4 L ABG Potassium 4.4 VBG pH VBG pCO2 VBG HCO3 VBG Total CO2 VBG O2 Sat (Calc) VBG Base Excess VBG Potassium Sodium 144 140.0 Chloride 109 H 107.0 Glucose 259 H Lactate 3.7 H Mechanical Rate FiO2 60.0 Tidal Volume PEEP Potassium 4.5 Carbon Dioxide 20 L Anion Gap 19 BUN 18 Creatinine 1.1 Est GFR ( Amer) > 60 Est GFR (Non-Af Amer) > 60 POC Glucose (mg/dL) Random Glucose 234 H Calcium 6.8 L* Ionized Calcium Phosphorus 3.2 Magnesium 1.8 Total Bilirubin 0.5 AST 124 H ALT 130 H Alkaline Phosphatase 66 Troponin I 1.47 H* D Total Protein 6.4 Albumin 3.6 Globulin 2.8 Albumin/Globulin Ratio 1.3 Procalcitonin Arterial Blood Potassium 4.4 Venous Blood Potassium Urine Color Urine Appearance Urine pH Ur Specific [place] Urine Protein Urine Glucose (UA) Urine Ketones Urine Blood Urine Nitrate Urine Bilirubin Urine Urobilinogen Ur Leukocyte Esterase Urine RBC Urine WBC Ur Epithelial Cells Urine Bacteria Coarse Granular Casts 02/05/18 02/05/18 02/05/18 06:30 09:00 11:37 WBC RBC Hgb Hct MCV MCH MCHC RDW Plt Count MPV Gran % Lymph % (Auto) [place] % (Auto) Eos % (Auto) Baso % (Auto) Gran # Lymph # (Auto) [place] # (Auto) Eos # (Auto) Baso # (Auto) PT 15.3 H INR 1.32 H APTT 195.6 H* pCO2 pO2 132 H 83 H HCO3 ABG pH ABG Total CO2 ABG O2 Saturation ABG Base Excess ABG Potassium VBG pH 7.22 L 7.24 L VBG pCO2 51.0 54.0 VBG HCO3 20.9 L 23.1 VBG Total CO2 22.5 24.8 VBG O2 Sat (Calc) 99.1 H 97.3 H VBG Base Excess -7.1 L -4.9 L VBG Potassium 4.8 4.5 Sodium 139.0 139.0 Chloride 107.0 110.0 H Glucose 255 H 279 H Lactate 3.8 H 3.7 H Mechanical Rate FiO2 21.0 21.0 Tidal Volume PEEP Potassium Carbon Dioxide Anion Gap BUN Creatinine Est GFR ( Amer) Est GFR (Non-Af Amer) POC Glucose (mg/dL) Random Glucose Calcium Ionized Calcium Phosphorus Magnesium Total Bilirubin AST ALT Alkaline Phosphatase Troponin I Total Protein Albumin Globulin Albumin/Globulin Ratio Procalcitonin Arterial Blood Potassium Venous Blood Potassium 4.8 4.5 Urine Color Urine Appearance Urine pH Ur Specific [place] Urine Protein Urine Glucose (UA) Urine Ketones Urine Blood Urine Nitrate Urine Bilirubin Urine Urobilinogen Ur Leukocyte Esterase Urine RBC Urine WBC Ur Epithelial Cells Urine Bacteria Coarse Granular Casts 02/05/18 02/05/18 02/05/18 14:09 15:24 15:24 WBC 25.3 H* RBC 5.12 Hgb 15.1 Hct 43.0 MCV 84.0 MCH 29.5 MCHC 35.1 RDW 14.0 Plt Count 165 MPV 10.6 Gran % 88.4 H Lymph % (Auto) 4.9 L [place] % (Auto) 6.7 H Eos % (Auto) 0.0 L Baso % (Auto) 0.0 Gran # 22.36 H Lymph # (Auto) 1.2 [place] # (Auto) 1.7 H Eos # (Auto) 0.0 Baso # (Auto) 0.01 PT INR APTT pCO2 pO2 HCO3 ABG pH ABG Total CO2 ABG O2 Saturation ABG Base Excess ABG Potassium VBG pH VBG pCO2 VBG HCO3 VBG Total CO2 VBG O2 Sat (Calc) VBG Base Excess VBG Potassium Sodium 143 Chloride 108 H Glucose Lactate Mechanical Rate FiO2 Tidal Volume PEEP Potassium 4.4 Carbon Dioxide 23 Anion Gap 16 BUN 19 Creatinine 1.0 Est GFR ( Amer) > 60 Est GFR (Non-Af Amer) > 60 POC Glucose (mg/dL) Random Glucose 241 H Calcium 7.5 L Ionized Calcium Phosphorus 3.0 Magnesium 1.7 Total Bilirubin 0.7 AST 95 H D ALT 114 H Alkaline Phosphatase 61 Troponin I Total Protein 6.2 Albumin 3.4 Globulin 2.8 Albumin/Globulin Ratio 1.2 Procalcitonin Arterial Blood Potassium Venous Blood Potassium Urine Color Dark yellow Urine Appearance Cloudy Urine pH 6.0 Ur Specific [place] >= 1.030 Urine Protein 30 H Urine Glucose (UA) >=1000 Urine Ketones 15 H Urine Blood Large H Urine Nitrate Negative Urine Bilirubin Small H Urine Urobilinogen 0.2 Ur Leukocyte Esterase Negative Urine RBC Tntc Urine WBC 10 - 15 Ur Epithelial Cells 4 - 5 Urine Bacteria Mod Coarse Granular Casts Small H 02/05/18 16:30 WBC RBC Hgb Hct MCV MCH MCHC RDW Plt Count MPV Gran % Lymph % (Auto) [place] % (Auto) Eos % (Auto) Baso % (Auto) Gran # Lymph # (Auto) [place] # (Auto) Eos # (Auto) Baso # (Auto) PT INR APTT pCO2 pO2 71 H HCO3 ABG pH ABG Total CO2 ABG O2 Saturation ABG Base Excess ABG Potassium VBG pH 7.32 VBG pCO2 37.0 L VBG HCO3 19.1 L VBG Total CO2 20.2 L VBG O2 Sat (Calc) 96.6 H VBG Base Excess -6.4 L VBG Potassium 3.3 L Sodium 143.0 Chloride 115.0 H Glucose 207 H Lactate 2.2 H Mechanical Rate FiO2 40.0 Tidal Volume PEEP 15 Potassium Carbon Dioxide Anion Gap BUN Creatinine Est GFR ( Amer) Est GFR (Non-Af Amer) POC Glucose (mg/dL) Random Glucose Calcium Ionized Calcium Phosphorus Magnesium Total Bilirubin AST ALT Alkaline Phosphatase Troponin I Total Protein Albumin Globulin Albumin/Globulin Ratio Procalcitonin Arterial Blood Potassium Venous Blood Potassium 3.3 L Urine Color Urine Appearance Urine pH Ur Specific [place] Urine Protein Urine Glucose (UA) Urine Ketones Urine Blood Urine Nitrate Urine Bilirubin Urine Urobilinogen Ur Leukocyte Esterase Urine RBC Urine WBC Ur Epithelial Cells Urine Bacteria Coarse Granular Casts EKG/Cardiology Studies: Cardiology / EKG Studies 02/04/18 17:00 EKG [ELECTROCARDIOGRAM] Q6H Comment: Reason For Exam: cardiac arrest 02/05/18 06:00 ELECTROCARDIOGRAM Routine Comment: Reason For Exam: freezing protocol Attending/Attestation - Attestation I have personally seen and examined this patient.: Yes I have fully participated in the care of the patient.: Yes I have reviewed all pertinent clinical information: Yes Notes (Text): 02/05/18 16:[address] Soto note
[2018-02-05] MEDS: Insulin Reg-MEDIUM-Coverage SC SCH ×2 (12:34→18:18)
[2018-02-05 14:13] LABS: URINE BILIRUBIN SMALL (NEGATIVE); URINE BLOOD LARGE (NEGATIVE); URINE GLUCOSE (UA) >=1000 mg/dL (NEGATIVE); URINE LEUKOCYTE ESTERASE NEGATIVE Leu/uL (NEGATIVE); URINE PROTEIN 30 mg/dL (<30 mg/dL); URINE UROBILINOGEN 0.2 E.U./dL (<1 E.U./dL)
[2018-02-05 14:19] LABS: URINE COLOR DARK YELLOW (YELLOW)
[2018-02-05 14:20] LABS: URINE APPEARANCE CLOUDY (CLEAR)
[2018-02-05 14:25] LABS: URINE BACTERIA MOD (NEG); URINE COARSE GRANULAR CAST SMALL /hpf (0-2); URINE RBC TNTC /hpf (0-2)
--- NOTE | 2018-02-05 14:49 | CP.PCM.PN ---
Subjective - Date & Time of Evaluation Date of Evaluation: 02/05/18 Time of Evaluation: 10:15 - Subjective Subjective: Continues to be on the ventilator, on hypothermia protocol. Objective - Vital Signs/Intake and Output Vital Signs (last 24 hours): Temp Pulse Resp BP Pulse Ox 96.1 F L 115 H 35 H 135/87 99 02/05/18 06:00 02/05/18 09:00 02/04/18 14:56 02/05/18 08:15 02/05/18 09:00 Intake and Output: 02/05/18 02/05/18 06:59 18:59 Intake Total 449 1714 Output Total 500 Balance 449 1214 - Medications Medications: Current Medications Albuterol/Ipratropium (Duoneb 3 Mg/0.5 Mg (3 Ml) Ud) 3 ml IH [id number] [facility] Last Admin: 02/05/18 08:12 Dose: 3 ml Artificial Tears (Artificial Tears) 0 ml OU Q8 PRN PRN Reason: Dry eyes Last Admin: 02/05/18 08:39 Dose: 1 drop Aspirin (Aspirin Chewable) 81 mg PO DAILY [facility] Last Admin: 02/05/18 09:21 Dose: Not Given Atorvastatin Calcium (Lipitor) 40 mg PO DIN [facility] Last Admin: 02/04/18 17:16 Dose: Not Given Hydrocortisone Sodium Succinate (Solu-Cortef) 50 mg IVP Q6 [facility] Last Admin: 02/05/18 06:25 Dose: 50 mg Propofol (Diprivan) 1,000 mg in 100 mls @ 3.538 mls/hr IV .Q24H PRN; Protocol; 5 MCG/KG/MIN PRN Reason: TITRATE PER MD ORDER Last Admin: 02/05/18 05:00 Dose: 10 mcg/kg/min, 7.076 mls/hr Cefepime HCl (Maxipime 2gm) 2 gm in 100 mls @ 100 mls/hr IVPB Q12 [facility] PRN Reason: Protocol Stop: 02/09/18 10:01 Last Admin: 02/05/18 09:22 Dose: 100 mls/hr Pantoprazole Sodium (Protonix 40mg Ivpb) 40 mg in 100 mls @ 20 mls/hr IVPB .Q5H [facility] Last Admin: 02/05/18 09:18 Dose: 20 mls/hr Milrinone Lactate/Dextrose (Primacor 20mg/100ml D5w) 100 mls @ 13.268 mls/hr IV .Q7H33M PRN; Protocol; 0.375 MCG/KG/MIN PRN Reason: TITRATE PER MD ORDER Last Titration: 02/05/18 08:31 Dose: 0.375 mcg/kg/min, 13.268 mls/hr Cisatracurium Besylate 200 mg/ (Sodium Chloride) 270 mls @ 9.55 mls/hr IV .Q24H PRN; Protocol; 1 MCG/KG/MIN PRN Reason: TITRATE PER MD ORDER Last Titration: 02/04/18 19:00 Dose: 1 mcg/kg/min, 9.55 mls/hr Heparin Sodium/Sodium Chloride (Heparin 22661 Units/250ml 1/2 Normal Saline) 25 ,000 units in 250 mls @ 14.152 mls/hr IV .[id number] [facility]; 12 UNITS/KG/HR PRN Reason: Protocol Last Admin: 02/05/18 06:51 Dose: 12 units/kg/hr, 14.152 mls/hr Levetiracetam 750 mg/ Sodium (Chloride) 107.5 mls @ 430 mls/hr IV Q12 [facility] Last Admin: 02/04/18 21:17 Dose: 430 mls/hr NOREPINEPHRINE BIT/0.9 % NACL (Levophed 4 Mg/ 250 Ml Ns Premixed) 4 mg in 250 mls @ 15 mls/hr IV .[id number] PRN; Protocol; 4 MCG/MIN PRN Reason: TITRATE PER MD ORDER Last Titration: 02/04/18 18:00 Dose: 0 mcg/min, 0 mls/hr Amiodarone HCl/Dextrose (Nexterone 360 Mg In D5w 200 Ml (Premix)) 360 mg in 200 mls @ 16.667 mls/hr IV .Q12H [facility] PRN Reason: 0.5 MG/MIN Last Admin: 02/05/18 05:00 Dose: 16.667 mls/hr Insulin Human Regular (Humulin R Med) 0 units SC Q6 [facility] PRN Reason: Protocol Levalbuterol HCl (Xopenex) 0.63 mg IH [id number] PRN PRN Reason: Shortness of Breath Last Admin: 02/04/18 13:10 Dose: 0.63 mg - Labs Labs: 02/05/18 06:00 02/05/18 06:00 PT 15.3 SECONDS (9.4-12.5) H 02/05/18 09:00 INR 1.32 (0.93-1.08) H 02/05/18 09:00 APTT 195.6 Seconds (25.1-36.5) H* 02/05/18 09:00 - Constitutional Appears: Chronically Ill, Other (intubated, sedated) - Head Exam Head Exam: NORMAL INSPECTION - ENT Exam Additional comments: ET tube in place - Respiratory Exam Respiratory Exam: Decreased Breath Sounds - Cardiovascular Exam Cardiovascular Exam: +S1, +S2 - GI/Abdominal Exam GI & Abdominal Exam: Soft. absent: Tenderness Assessment and Plan - Assessment and Plan (Free Text) Plan: Assessment Systemic Inflammatory response syndrome, consider due to cardiac arrest etiology to be determined, R/O sepsis source to be determined CAD S/P CABG HTN thyroid disease significant smoking history Plan gave the patient a dose of IV Vancomycin and continue Cefepime day 2; blood, urine cx are negative so far, PCT is elevated but patient may have acute VT; reviewed CXR which is showing pulmonary edema; reviewed CT head showing possible hypoxic brain injury - follow up Neurology evaluation overall prognosis is poor will continue to monitor clinically
[2018-02-05 15:29] LABS: BASO # 0.01 K/mm3 (0.0-2.0); GRAN # 22.36 (1.4-6.5); GRAN % 88.4 % (50.0-68.0); HEMOGLOBIN 15.1 g/dL (14.0-18.0); LYMPH # 1.2 (1.2-3.4); LYMPH % 4.9 % (22.0-35.0); MEAN CORPUSCULAR HEMOGLOBIN 29.5 pg (25.0-35.0); MEAN CORPUSCULAR HGB CONC 35.1 g/dl (31.0-37.0); MEAN PLATELET VOLUME 10.6 fl (7.0-11.0); MONO # 1.7 (0.1-0.6); MONO % 6.7 % (1.0-6.0); RBC 5.12 10^6/uL (3.5-6.1)
[2018-02-05 15:30] LABS: WHITE BLOOD COUNT 25.3 10^3/ul (4.5-11.0)
[2018-02-05 15:55] LABS: ALB/GLOB RATIO 1.2 (1.1-1.8); ALBUMIN 3.4 g/dL (3.0-4.8); ALT/SGPT 114 U/L (7-56); AST/SGOT 95 U/L (17-59); BLOOD UREA NITROGEN 19 mg/dL (7-21); CALCIUM 7.5 mg/dL (8.4-10.5); GFR AFRICAN-AMERICAN > 60; GFR NON-AFRICAN AMERICAN > 60
--- NOTE | 2018-02-05 16:09 | PN ---
DATE: 02/05/2018 SUBJECTIVE: The patient is seen and examined at bedside. He is sedated with propofol 10 mcg/kg per minute. Nimbex 1 mcg/kg per minute, milrinone 0.375 mcg/kg per minute, Protonix 80 mg/hour, heparin drip, amiodarone drip 0.5 mg/minute. OBJECTIVE: VITAL SIGNS: The patient is on PRVC 483/38/15/40%; on that setting, vital signs are heart rate 150, oxygen saturation 99%, end-tidal CO2 on the monitor 20, blood pressure 140/75. ENT: Head and neck atraumatic. LUNGS: Clear to auscultation bilaterally. A few crackles bilaterally. Chest x-ray looks a little better in terms of congestion compared with yesterday. HEART: Regular rate and rhythm. S1, S2 distant. ABDOMEN: Soft, nontender, nondistended. MUSCULOSKELETAL: Chronic cellulitic changes. SKIN: Moist. PSYCHIATRIC: The patient is sedated. NEUROLOGICAL: The patient is on neuromuscular blockade. DATA: Sodium 144, potassium 4.5, chloride 109, carbon dioxide 20, BUN 18, creatinine 1.1, glucose 234, AST 124, ALT 130, total bilirubin 0.5, WBC 26.6 down from 29.8, hemoglobin 15.5, platelet count 179. Chest x-ray, improved congestion bilaterally. MEDICATIONS: DuoNeb every 4 hours, amiodarone, aspirin, Lipitor, heparin drip, hydrocortisone 50 mg IV every 6 hours, Xopenex p.r.n., Keppra, cefepime, drip, milrinone 0.375 mcg/kg per minute, Propofol, Protonix. Normal saline stopped. Vancomycin intranasally. ASSESSMENT AND PLAN: This is a 57-year-old gentleman who presented after cardiac arrest due to primary coronary/ischemic cardiac event. He was started on therapeutic hypothermia with temperature from 34-36 degrees Celsius. At present time, it has been 24 hours from the beginning of hypothermia protocol and we will start gradually warming him up with rate not exceeding 0.5 degrees centigrade per hour. Neuro: The patient will be continued on neuromuscular blockade for now and on propofol drip. His BIS score varies between 50 and 60. EEG yesterday was negative for seizures. He is on Keppra for prophylaxis. At present time, initial CT scan of the head that was done yesterday showed some signs of anoxic brain injury, which is concerning. Neurology service is following the patient as well. EEG and CTH in am Pulmonary: We will continue with 6 mL per predicted body weight of tidal volume ventilation. We will maintain plateau pressure less than 30. At present time, we will continue with conservative fluid management. Conservative oxygen management. The patient is off of pressors and it appears that shock syndrome is resolving. We will start tapering down stress dose steroids. We will continue with head of bed elevated at >35 degrees, oral hygiene, other components of VAP bundle. The patient had some leukocytosis and infiltrates on chest x-ray, which likely represents reactive leukocytosis and cardiogenic pulmonary edema; however, infectious component cannot be ruled out and the patient is on broad-spectrum antibiotics. The patient is not wheezing today and he is on bronchodilators as well. The patient is on amiodarone, but FiO2 substantially decreased, thats why I am less concerned for oxygen toxicity in the setting of amiodarone therapy. Amiodarone drip completed, HR is controlled and rhythm is sinus-->wont continue amiodarone. ABG substantially improved in terms of gas exchange and space ventilation. FiO2 went down to 40%, RR down to 30, will repeat ABG and consider tapering PEEP as well. Cardiovascular: The patient's shock syndrome substantially improved. Levophed was weaned off, the patient continued to be on milrinone, amiodarone and heparin drip. Cardiology Service is following the patient as well. Formal/official report of echocardiogram is pending. However, prelim review showed severe decreased left ventricular systolic function. We will start tapering down stress dose steroids. GI: The patient had some spike in transaminitis, which is substantially improved now; but wont continue amiodarone anyway. We will continue with n.p.o. for now. The patient is on Protonix drip; however, his coffee-ground output from NG tube become more billious and I will switch the patient from Protonix drip to Protonix IV dose as soon as the patient is normothermic (hypothermia and TAC put pt at higher risk for bleed/stress ulcers then being on vent alone). GI consult is pending. ID: Most likely, bilateral fluffy infiltrates on chest x-ray represent cardiogenic pulmonary edema; however, in the setting of leukocytosis, infectious etiology cannot be ruled out. Thus, the patient in broad-spectrum antibiotics and septic workup was initiated. Procalcitonin slightly elevated and will be trended down as well. ID service is on board as well. to be continued....(here phone connection interrupted) ccm time 40min Anderson Soto MD MTDD
[2018-02-05 16:38] LABS: VENOUS BLOOD GAS BASE EXCESS -6.4 mmol/L (0.0-2.0); VENOUS BLOOD GAS PO2 71 mm/Hg (30-55); VENOUS BLOOD PH 7.32 (7.32-7.43)
[2018-02-05] MEDS: Cisatracurium Besylate 200 MG in Sodium Chloride 0.9% 250 ML IV PRN (18:18)
[2018-02-05 20:32] LABS: ARTERIAL BLOOD GAS HCO3 23.7 mmol/L (21-28); ARTERIAL BLOOD GAS O2 SAT 94.7 % (95-98); ARTERIAL BLOOD GAS PCO2 46 mm/Hg (35-45); ARTERIAL BLOOD GAS PH 7.32 (7.35-7.45); ARTERIAL BLOOD GAS TCO2 25.1 mmol.L (22-28)
--- NOTE | 2018-02-05 20:48 | CON ---
DATE: [facility] NEPHROLOGY CONSULTATION HISTORY OF PRESENT ILLNESS: A 57-year-old male with past medical history of hypertension, CAD status post CABG and status post stents, thyroid disease, presented status post cardiac arrest; Nephrology being consulted for acute kidney injury; history taken from medical record as the patient remains intubated; patient reportedly was found by on the night of presentation to be breathing heavily and not responding; the patient was started on CPR by with ACLS protocol being continued by EMS; the patient was noted to be in V-fib and was shocked several times before achieving return of spontaneous circulation; The patient subsequently underwent hypothermia protocol; the patient was initially on vasopressor support on Levophed; echo showed severe LV dysfunction and the patient was started on milrinone drip; Levophed was able to be taken off, but the patient still remains on milrinone drip; the patient began rewarming today; remains sedated and paralyzed; REVIEW OF SYSTEMS: Unable to obtain. PAST MEDICAL HISTORY: As above. SOCIAL HISTORY: Active smoker. FAMILY HISTORY: Unknown. PHYSICAL EXAMINATION: GENERAL: Not responsive. VITAL SIGNS: Blood pressure 135/87, heart rate 106, respirations set at 38, O2 sat 100% on 60% FiO2. HEENT: Moist mucous membranes. Nonicteric. RESPIRATORY: Lungs clear to auscultation bilaterally. No rales. No rhonchi. No wheezes. HEART: Sounds soft S2. Tachycardic. Regular rate and rhythm. GI: Abdomen is soft, nondistended. : No bladder distention, Garcia in place. EXTREMITIES: No significant edema. SKIN: Warm. No cyanosis. NEUROLOGIC: No corneal reflex, not triggering vent. LABORATORY DATA: CBC: WBC 25.3, hemoglobin 15.1, hematocrit 43, platelets 165. Chemistry panel: Sodium 143, potassium 4.4, chloride 108, bicarb 23, BUN 19, creatinine 1, decreased from 1.5 yesterday, calcium 7.5, glucose 241, phosphorous 3, magnesium 1.7, AST 95, ALT 114, albumin 3.4. Urine studies, specific gravity greater than 1.030. Urine protein 30 mg/dL, glucose greater than 1000, numerous RBCs, moderate bacteria, small number of coarse granular casts. ABG this morning pH 7.21, pCO2 52, pO2 102 on 60% FiO2. ASSESSMENT AND PLAN: 1. Acute kidney injury, nonoliguric renal failure. History consistent with acute tubular necrosis that is resolving; relatively stable electrolyte status. The patient is positive 6 liters till this morning; goal should be to maintain euvolemia; agree with diuresis in the setting of severe systolic dysfunction; avoid nephrotoxic agents; no need for dose reduction of antibiotics at this point. 2. Acidosis combined metabolic and respiratory acidosis; agree with critical care management of holding bicarb drip as this may worsen hypercapnia and the patient is already being maxed out on ventilatory support; otherwise, continue to hyperventilate and reduce hypercapnia; 3. Acute decompensated systolic congestive heart failure. The patient with severe LV dysfunction on inotropic agent; recommend to continue the same in order to ensure adequate organ perfusion; recommend to diuresed with IV Lasix as blood pressure tolerates; 4. Hematuria, likely due to being on heparin drip and with the Garcia; can reassess once off of heparin drip; 5. Hypocalcemia should improve now that the patient is off of bicarb drip; continue to replenish via IV route; Thank you for this referral. We will be following up closely. Cj Estrada MD
[2018-02-05 22:13] LABS: GRAN # 20.24 (1.4-6.5); GRAN % 87.9 % (50.0-68.0); HEMOGLOBIN 14.2 g/dL (14.0-18.0); LYMPH # 1.2 (1.2-3.4); LYMPH % 5.2 % (22.0-35.0); MEAN CELL VOLUME 84.4 fl (80.0-105.0); MEAN CORPUSCULAR HEMOGLOBIN 29.6 pg (25.0-35.0); MEAN CORPUSCULAR HGB CONC 35.1 g/dl (31.0-37.0); MEAN PLATELET VOLUME 10.6 fl (7.0-11.0); MONO # 1.6 (0.1-0.6); MONO % 6.9 % (1.0-6.0); RBC 4.8 10^6/uL (3.5-6.1); RED CELL DISTRIBUTION WIDTH 14.3 % (11.5-14.5); VENOUS BLOOD GAS BASE EXCESS -0.8 mmol/L (0.0-2.0); VENOUS BLOOD GAS PO2 69 mm/Hg (30-55); VENOUS BLOOD PH 7.34 (7.32-7.43)
[2018-02-05 22:21] LABS: ALB/GLOB RATIO 1.2 (1.1-1.8); ALBUMIN 3.2 g/dL (3.0-4.8); ALT/SGPT 105 U/L (7-56); AST/SGOT 80 U/L (17-59); BLOOD UREA NITROGEN 19 mg/dL (7-21); CALCIUM 7.7 mg/dL (8.4-10.5); GFR AFRICAN-AMERICAN > 60; GFR NON-AFRICAN AMERICAN > 60
[2018-02-05 22:26] LABS: INR 1.26 (0.93-1.08); PARTIAL THROMBOPLASTIN TIME 59.2 Seconds (25.1-36.5); PROTHROMBIN TIME 14.4 SECONDS (9.4-12.5)
[2018-02-06] MEDS: Insulin Reg-MEDIUM-Coverage SC SCH ×3 (00:30→12:55)
[2018-02-06] MEDS ORDERED: Amiodarone 150 mg/D5W 100 ml 150 MG/100 ML BAG IVPB ONE (00:57)
[2018-02-06] MEDS ORDERED: Amiodarone 450mg/9 ml vial IV ONE (01:00)
[2018-02-06] MEDS: Pantoprazole 40mg/100mL NS 40 MG/100 ML BAG IVPB SCH ×5 (01:18→21:55)
[2018-02-06] MEDS: Albuterol-Ipratrop 3 mg / 0.5 (3 ml) UD IH PRN ×3 (02:08→13:40)
[2018-02-06] MEDS: Propofol 10 mg/ml 1,000 MG/100 ML VIAL IV PRN ×6 (03:00→22:12)
[2018-02-06 05:28] LABS: ARTERIAL BLOOD GAS HCO3 22.7 mmol/L (21-28); ARTERIAL BLOOD GAS O2 SAT 97.1 % (95-98); ARTERIAL BLOOD GAS PCO2 42 mm/Hg (35-45); ARTERIAL BLOOD GAS PH 7.34 (7.35-7.45)
[2018-02-06 05:34] LABS: ALBUMIN 2.9 g/dL (3.0-4.8); ALT/SGPT 95 U/L (7-56); AST/SGOT 71 U/L (17-59); BLOOD UREA NITROGEN 19 mg/dL (7-21); GFR AFRICAN-AMERICAN > 60; GFR NON-AFRICAN AMERICAN > 60
[2018-02-06 05:36] LABS: HEMOGLOBIN 13.3 g/dL (14.0-18.0); MEAN CELL VOLUME 85.7 fl (80.0-105.0); MEAN CORPUSCULAR HEMOGLOBIN 29.8 pg (25.0-35.0); MEAN CORPUSCULAR HGB CONC 34.8 g/dl (31.0-37.0); RBC 4.46 10^6/uL (3.5-6.1); RED CELL DISTRIBUTION WIDTH 14.4 % (11.5-14.5)
[2018-02-06 05:37] LABS: BASO # 0.06 K/mm3 (0.0-2.0); BASO % 0.3 % (0.0-3.0); GRAN # 19.17 (1.4-6.5); GRAN % 87.2 % (50.0-68.0); LYMPH # 1.2 (1.2-3.4); LYMPH % 5.6 % (22.0-35.0); MEAN PLATELET VOLUME 11.2 fl (7.0-11.0); MONO # 1.5 (0.1-0.6); MONO % 6.9 % (1.0-6.0)
[2018-02-06] MEDS: Midazolam 100 mg/100ml in NS 100 MG/100 ML SOL IV PRN ×2 (06:19→22:15)
[2018-02-06 06:20] LABS: TROPONIN I 0.76 ng/mL
--- NOTE | 2018-02-06 07:34 | CP.PCM.PN ---
Subjective - Date & Time of Evaluation Date of Evaluation: 02/06/18 Time of Evaluation: 07:00 - Subjective Subjective: Stable in CCU. I spoke with his bedside nurse. V/S noted. RSR, PVCs-was started on amiod. drip. 122/64. Afebrile PE: lungs: rhonchi Cor.: S1S2 Abd.: soft Ext. mild edema Neuro.: sedated. Had gag and corneal reflexes and withdrawl to pain earlier. I/O= 5252/1926 Labs and ABGs noted: WBC= 22,600, PTT 52, BMP OK, trop = 0.76 BC X3 NG at 48 hrs. ECG: S. tachy., STTW changes CXR: not read yet. Improved by my reading Objective - Vital Signs/Intake and Output Vital Signs (last 24 hours): Temp Pulse Resp BP Pulse Ox 98.4 F 108 H 34 H 122/64 100 02/06/18 06:00 02/06/18 06:00 02/06/18 07:19 02/06/18 05:00 02/06/18 07:19 Intake and Output: 02/06/18 02/06/18 06:59 18:59 Intake Total 1266 Output Total 750 Balance 516 - Medications Medications: Current Medications Albuterol/Ipratropium (Duoneb 3 Mg/0.5 Mg (3 Ml) Ud) 3 ml IH [id number] PRN PRN Reason: Shortness of Breath Last Admin: 02/06/18 07:10 Dose: 3 ml Artificial Tears (Artificial Tears) 0 ml OU Q8 PRN PRN Reason: Dry eyes Last Admin: 02/05/18 17:11 Dose: 2 drop Aspirin (Aspirin Chewable) 81 mg PO DAILY [facility] Last Admin: 02/05/18 09:21 Dose: Not Given Atorvastatin Calcium (Lipitor) 40 mg PO DIN [facility] Last Admin: 02/05/18 17:12 Dose: Not Given Hydrocortisone Sodium Succinate (Solu-Cortef) 50 mg IVP Q8 [facility] Last Admin: 02/05/18 22:06 Dose: 50 mg Propofol (Diprivan) 1,000 mg in 100 mls @ 3.538 mls/hr IV .Q24H PRN; Protocol; 5 MCG/KG/MIN PRN Reason: TITRATE PER MD ORDER Last Admin: 02/06/18 03:00 Dose: 20 mcg/kg/min, 14.152 mls/hr Cefepime HCl (Maxipime 2gm) 2 gm in 100 mls @ 100 mls/hr IVPB Q12 [facility] PRN Reason: Protocol Stop: 02/09/18 10:01 Last Admin: 02/05/18 22:05 Dose: 100 mls/hr Pantoprazole Sodium (Protonix 40mg Ivpb) 40 mg in 100 mls @ 20 mls/hr IVPB .Q5H [facility] Last Admin: 02/06/18 06:01 Dose: 20 mls/hr Milrinone Lactate/Dextrose (Primacor 20mg/100ml D5w) 100 mls @ 13.268 mls/hr IV .Q7H33M PRN; Protocol; 0.375 MCG/KG/MIN PRN Reason: TITRATE PER MD ORDER Last Admin: 02/05/18 23:52 Dose: 0.375 mcg/kg/min, 13.268 mls/hr Cisatracurium Besylate 200 mg/ (Sodium Chloride) 270 mls @ 9.55 mls/hr IV .Q24H PRN; Protocol; 1 MCG/KG/MIN PRN Reason: TITRATE PER MD ORDER Last Titration: 02/05/18 19:00 Dose: 1 mcg/kg/min, 9.55 mls/hr Heparin Sodium/Sodium Chloride (Heparin 52913 Units/250ml 1/2 Normal Saline) 25 ,000 units in 250 mls @ 14.152 mls/hr IV .[id number] [facility]; 12 UNITS/KG/HR PRN Reason: Protocol Last Titration: 02/05/18 11:30 Dose: 6 units/kg/hr, 7.076 mls/hr Levetiracetam 750 mg/ Sodium (Chloride) 107.5 mls @ 430 mls/hr IV Q12 [facility] Last Admin: 02/05/18 22:05 Dose: 430 mls/hr NOREPINEPHRINE BIT/0.9 % NACL (Levophed 4 Mg/ 250 Ml Ns Premixed) 4 mg in 250 mls @ 15 mls/hr IV .[id number] PRN; Protocol; 4 MCG/MIN PRN Reason: TITRATE PER MD ORDER Last Titration: 02/04/18 18:00 Dose: 0 mcg/min, 0 mls/hr Amiodarone HCl/Dextrose (Nexterone 360 Mg In D5w 200 Ml (Premix)) 360 mg in 200 mls @ 16.667 mls/hr IV .Q12H [facility] PRN Reason: 0.5 MG/MIN Last Admin: 02/05/18 05:00 Dose: 16.667 mls/hr Midazolam 100 mg/100ml in NS (Midazolam 100 Mg/100ml In Ns) 100 mg in 100 mls @ 1 mls/hr IV .Q24H PRN; Protocol; 1 MG/HR PRN Reason: Sedation Last Admin: 02/06/18 06:19 Dose: 1 mg/hr, 1 mls/hr Insulin Human Regular (Humulin R Med) 0 units SC Q6 [facility] PRN Reason: Protocol Last Admin: 02/06/18 00:30 Dose: Not Given Lorazepam (Ativan) 1 mg IVP Q6H PRN; Protocol PRN Reason: Seizure activity - Labs Labs: 02/06/18 05:00 02/06/18 05:00 PT 14.4 SECONDS (9.4-12.5) H 02/05/18 22:05 INR 1.26 (0.93-1.08) H 02/05/18 22:05 APTT 52.4 Seconds (25.1-36.5) H 02/06/18 05:00 Assessment and Plan - Assessment and Plan (Free Text) Assessment: Cardiac arrest at home Acute LA/CHF/S/P resuscitation in the field Anoxic encephalopathy CAD/LA/Remote CABG/No regular cardiac f/u HBP Hypothyroidism Smoker Plan: IV Lasix Wean pressors as marixa As per Neuro., GI, Renal, Intensivists Monitor: labs, trops, I/O, sats., ABGs, CXRs, neuro status, etc Will follow.
[2018-02-06] MEDS: Cefepime IV 2 gm in NS 2 GM/100 ML BAG IVPB SCH ×2 (09:15→22:20)
--- NOTE | 2018-02-06 09:15 | RAD ---
HISTORY: intubated COMPARISON: 02/05/2018 FINDINGS: LUNGS: There is resolution of the previously seen right lower lobe infiltrate. The lungs are now clear. Central lines and tubes in satisfactory position PLEURA: No significant pleural effusion identified, no pneumothorax apparent. CARDIOVASCULAR: Normal. OSSEOUS STRUCTURES: No significant abnormalities. VISUALIZED UPPER ABDOMEN: Normal. OTHER FINDINGS: None. IMPRESSION: There is resolution of the previously seen right lower lobe infiltrate. The lungs are now clear. Central lines and tubes in satisfactory position
[2018-02-06] MEDS: Aritificial Tears (15ml) OU PRN ×2 (09:18→17:19)
[2018-02-06] MEDS: Milrinone 20mg/100ml D5W 100 ML IV PRN ×2 (09:32→17:15)
--- NOTE | 2018-02-06 11:54 | CP.PCM.PN ---
Subjective - Date & Time of Evaluation Date of Evaluation: 02/06/18 Time of Evaluation: 07:30 - Subjective Subjective: Patient seen and examined, remains intubated, sedated, on Milrinone. Objective - Vital Signs/Intake and Output Vital Signs (last 24 hours): Temp Pulse Resp BP Pulse Ox 99.2 F 116 H 34 H 123/50 L 100 02/06/18 10:55 02/06/18 11:00 02/06/18 07:19 02/06/18 11:00 02/06/18 11:00 Intake and Output: 02/06/18 02/06/18 06:59 18:59 Intake Total 1356 295 Output Total 750 Balance 606 295 - Medications Medications: Current Medications Albuterol/Ipratropium (Duoneb 3 Mg/0.5 Mg (3 Ml) Ud) 3 ml IH [id number] PRN PRN Reason: Shortness of Breath Last Admin: 02/06/18 07:10 Dose: 3 ml Amiodarone HCl (Cordarone) 200 mg PO BID [facility] Last Admin: 02/06/18 10:55 Dose: 200 mg Artificial Tears (Artificial Tears) 0 ml OU Q8 PRN PRN Reason: Dry eyes Last Admin: 02/06/18 09:18 Dose: 2 drop Aspirin (Aspirin Supp) 300 mg RC DAILY [facility] Last Admin: 02/06/18 10:55 Dose: 300 mg Atorvastatin Calcium (Lipitor) 40 mg PO DIN [facility] Last Admin: 02/05/18 17:12 Dose: Not Given Hydrocortisone Sodium Succinate (Solu-Cortef) 50 mg IVP Q8 [facility] Last Admin: 02/06/18 07:00 Dose: 50 mg Propofol (Diprivan) 1,000 mg in 100 mls @ 3.538 mls/hr IV .Q24H PRN; Protocol; 5 MCG/KG/MIN PRN Reason: TITRATE PER MD ORDER Last Titration: 02/06/18 11:07 Dose: 27 mcg/kg/min, 19.105 mls/hr Cefepime HCl (Maxipime 2gm) 2 gm in 100 mls @ 100 mls/hr IVPB Q12 [facility] PRN Reason: Protocol Stop: 02/09/18 10:01 Last Admin: 02/06/18 09:15 Dose: 100 mls/hr Pantoprazole Sodium (Protonix 40mg Ivpb) 40 mg in 100 mls @ 20 mls/hr IVPB .Q5H [facility] Last Admin: 02/06/18 11:34 Dose: 20 mls/hr Milrinone Lactate/Dextrose (Primacor 20mg/100ml D5w) 100 mls @ 13.268 mls/hr IV .Q7H33M PRN; Protocol; 0.375 MCG/KG/MIN PRN Reason: TITRATE PER MD ORDER Last Admin: 02/06/18 09:32 Dose: 0.375 mcg/kg/min, 13.268 mls/hr Cisatracurium Besylate 200 mg/ (Sodium Chloride) 270 mls @ 9.55 mls/hr IV .Q24H PRN; Protocol; 1 MCG/KG/MIN PRN Reason: TITRATE PER MD ORDER Last Titration: 02/06/18 06:00 Dose: 0 mcg/kg/min, 0 mls/hr Heparin Sodium/Sodium Chloride (Heparin 63946 Units/250ml 1/2 Normal Saline) 25 ,000 units in 250 mls @ 14.152 mls/hr IV .[id number] [facility]; 12 UNITS/KG/HR PRN Reason: Protocol Last Titration: 02/05/18 11:30 Dose: 6 units/kg/hr, 7.076 mls/hr Levetiracetam 750 mg/ Sodium (Chloride) 107.5 mls @ 430 mls/hr IV Q12 [facility] Last Admin: 02/06/18 09:14 Dose: 430 mls/hr NOREPINEPHRINE BIT/0.9 % NACL (Levophed 4 Mg/ 250 Ml Ns Premixed) 4 mg in 250 mls @ 15 mls/hr IV .[id number] PRN; Protocol; 4 MCG/MIN PRN Reason: TITRATE PER MD ORDER Last Titration: 02/04/18 18:00 Dose: 0 mcg/min, 0 mls/hr Midazolam 100 mg/100ml in NS (Midazolam 100 Mg/100ml In Ns) 100 mg in 100 mls @ 1 mls/hr IV .Q24H PRN; Protocol; 1 MG/HR PRN Reason: Sedation Last Titration: 02/06/18 08:20 Dose: 3 mg/hr, 3 mls/hr Insulin Human Regular (Humulin R Med) 0 units SC Q6 [facility] PRN Reason: Protocol Last Admin: 02/06/18 06:30 Dose: Not Given Lorazepam (Ativan) 1 mg IVP Q6H PRN; Protocol PRN Reason: Seizure activity - Labs Labs: 02/06/18 05:00 02/06/18 05:00 PT 14.4 SECONDS (9.4-12.5) H 02/05/18 22:05 INR 1.26 (0.93-1.08) H 02/05/18 22:05 APTT 52.4 Seconds (25.1-36.5) H 02/06/18 05:00 - Constitutional Appears: Non-toxic, No Acute Distress - Head Exam Head Exam: NORMOCEPHALIC - ENT Exam ENT Exam: Mucous Membranes Moist - Respiratory Exam Respiratory Exam: Rales, NORMAL BREATHING PATTERN - Cardiovascular Exam Cardiovascular Exam: REGULAR RHYTHM, +S1, +S2 - GI/Abdominal Exam GI & Abdominal Exam: Soft, Normal Bowel Sounds - Extremities Exam Extremities Exam: Pedal Edema - Neurological Exam Neurological Exam: Altered Assessment and Plan - Assessment and Plan (Free Text) Assessment: Patient is 57yomale with PMHx of CAD s/p CABG with 4 stents, HTN, hypothyroidism , s/p Vfib arrest in the field, s/p hypothermic protocol, s/p rewarming. Pt currently Afebrile, HD stable, comfortable in NAD, on Milrinone drip. Cannot fully asses neuroligcal exam, as patient is sedated, does overbreath the ventilator. EEG done on admission, repeat pending CTH done on admission, c/w anoxic brain injury, ?repeat CTH Neurology following. CXR noted with bilateral pulm vasc congestion, cannot rule out infiltrate. CAD s/p CABG s/p stent HTN Hypothyroid s/p Vfib cardiac arrest CHF acute decompensated systolic rule out PNA Recommend: - cont with vent support, low tidal vol ventilation, daily sedation vacation CPAP trials as tolerated, ABG acceptable - Duonebs PRN - Cont with broad spectrum abx, as per ID - follow up cultures, Procal - maintain MAP >65 - ASA - Milrinone drip - would hold off AMio for now, given LFTs, and normal sinus rhythm - follow up cardiology - ECHO - Lasix IV diuresis - monitor HH - monitor LFTs - follow up renal - EEG, repeat? - CTH repeat - follow up neurology - Heparin drip - monitor I/Os - GI ppx - DVT ppx - Monitor in MICU overall prognosis poor critical care time 45 minutes
--- NOTE | 2018-02-06 12:14 | CP.PCM.PN ---
<Alexander Trujillo - Last Filed: 02/06/18 11:44> Subjective - Date & Time of Evaluation Date of Evaluation: 02/06/18 Time of Evaluation: 11:44 - Subjective Subjective: Patient seen and examined this AM. Patient remains intubated and sedated. Over past 24 hours patient has completed rewarming protocol. ROS unable to be obtained due to sedation. Objective - Vital Signs/Intake and Output Vital Signs (last 24 hours): Temp Pulse Resp BP Pulse Ox 99.2 F 116 H 34 H 123/50 L 100 02/06/18 10:55 02/06/18 11:00 02/06/18 07:19 02/06/18 11:00 02/06/18 11:00 Intake and Output: 02/06/18 02/06/18 06:59 18:59 Intake Total 1356 295 Output Total 750 Balance 606 295 - Medications Medications: Current Medications Albuterol/Ipratropium (Duoneb 3 Mg/0.5 Mg (3 Ml) Ud) 3 ml IH [id number] PRN PRN Reason: Shortness of Breath Last Admin: 02/06/18 07:10 Dose: 3 ml Amiodarone HCl (Cordarone) 200 mg PO BID [facility] Last Admin: 02/06/18 10:55 Dose: 200 mg Artificial Tears (Artificial Tears) 0 ml OU Q8 PRN PRN Reason: Dry eyes Last Admin: 02/06/18 09:18 Dose: 2 drop Aspirin (Aspirin Supp) 300 mg RC DAILY [facility] Last Admin: 02/06/18 10:55 Dose: 300 mg Atorvastatin Calcium (Lipitor) 40 mg PO DIN [facility] Last Admin: 02/05/18 17:12 Dose: Not Given Hydrocortisone Sodium Succinate (Solu-Cortef) 50 mg IVP Q8 [facility] Last Admin: 02/06/18 07:00 Dose: 50 mg Propofol (Diprivan) 1,000 mg in 100 mls @ 3.538 mls/hr IV .Q24H PRN; Protocol; 5 MCG/KG/MIN PRN Reason: TITRATE PER MD ORDER Last Titration: 02/06/18 11:07 Dose: 27 mcg/kg/min, 19.105 mls/hr Cefepime HCl (Maxipime 2gm) 2 gm in 100 mls @ 100 mls/hr IVPB Q12 [facility] PRN Reason: Protocol Stop: 02/09/18 10:01 Last Admin: 02/06/18 09:15 Dose: 100 mls/hr Pantoprazole Sodium (Protonix 40mg Ivpb) 40 mg in 100 mls @ 20 mls/hr IVPB .Q5H [facility] Last Admin: 02/06/18 11:34 Dose: 20 mls/hr Milrinone Lactate/Dextrose (Primacor 20mg/100ml D5w) 100 mls @ 13.268 mls/hr IV .Q7H33M PRN; Protocol; 0.375 MCG/KG/MIN PRN Reason: TITRATE PER MD ORDER Last Admin: 02/06/18 09:32 Dose: 0.375 mcg/kg/min, 13.268 mls/hr Cisatracurium Besylate 200 mg/ (Sodium Chloride) 270 mls @ 9.55 mls/hr IV .Q24H PRN; Protocol; 1 MCG/KG/MIN PRN Reason: TITRATE PER MD ORDER Last Titration: 02/06/18 06:00 Dose: 0 mcg/kg/min, 0 mls/hr Heparin Sodium/Sodium Chloride (Heparin 14714 Units/250ml 1/2 Normal Saline) 25 ,000 units in 250 mls @ 14.152 mls/hr IV .[id number] [facility]; 12 UNITS/KG/HR PRN Reason: Protocol Last Titration: 02/05/18 11:30 Dose: 6 units/kg/hr, 7.076 mls/hr Levetiracetam 750 mg/ Sodium (Chloride) 107.5 mls @ 430 mls/hr IV Q12 [facility] Last Admin: 02/06/18 09:14 Dose: 430 mls/hr NOREPINEPHRINE BIT/0.9 % NACL (Levophed 4 Mg/ 250 Ml Ns Premixed) 4 mg in 250 mls @ 15 mls/hr IV .[id number] PRN; Protocol; 4 MCG/MIN PRN Reason: TITRATE PER MD ORDER Last Titration: 02/04/18 18:00 Dose: 0 mcg/min, 0 mls/hr Midazolam 100 mg/100ml in NS (Midazolam 100 Mg/100ml In Ns) 100 mg in 100 mls @ 1 mls/hr IV .Q24H PRN; Protocol; 1 MG/HR PRN Reason: Sedation Last Titration: 02/06/18 08:20 Dose: 3 mg/hr, 3 mls/hr Insulin Human Regular (Humulin R Med) 0 units SC Q6 [facility] PRN Reason: Protocol Last Admin: 02/06/18 06:30 Dose: Not Given Lorazepam (Ativan) 1 mg IVP Q6H PRN; Protocol PRN Reason: Seizure activity - Labs Labs: 02/06/18 05:00 02/06/18 05:00 PT 14.4 SECONDS (9.4-12.5) H 02/05/18 22:05 INR 1.26 (0.93-1.08) H 02/05/18 22:05 APTT 52.4 Seconds (25.1-36.5) H 02/06/18 05:00 - Head Exam Head Exam: ATRAUMATIC, NORMAL INSPECTION, NORMOCEPHALIC - Eye Exam Pupil Exam: Fixed, Miosis - Respiratory Exam Respiratory Exam: Clear to Ausculation Bilateral, NORMAL BREATHING PATTERN - Cardiovascular Exam Cardiovascular Exam: Tachycardia, +S1, +S2 - GI/Abdominal Exam GI & Abdominal Exam: Soft, Normal Bowel Sounds. absent: Guarding, Rigid - Extremities Exam Extremities Exam: Normal Capillary Refill. absent: Pedal Edema - Neurological Exam Additional comments: Sedated and intubated Patient minimally responsive to pain - Skin Skin Exam: Dry, Warm Assessment and Plan - Assessment and Plan (Free Text) Assessment: 7 year old male with history of CAD s/p CABG and 4 stents, hypertension, thyroid disease, and tobacco abuse presenting s/p cardiac arrest secondary to a cardiac event (possible posterior wall infarct) presenting with cardiogenic shock and anoxic encephalopathy Plan: Cardiac Arrest - Etiology suspected to be 2/2 ventricular fibrillation - EKG reveals ST-T segments findings consistent with ischemia, possible inferior wall SC, intraventricular conduction delay evidenced by EKG and cardiac enzyme elevation - Echocardiogram reveals EF 20-25% with septum and apex severly hypokinetic. Left ventricular systolic function severely impaired - Continue with Milrinone - PTT elevated;hold heparin and repeat PTT, then titrate heparin drip - Heparin gtt, Milrinone gtt 2/2 EF of 20s Tachycardia - Cardiology consulted and following - EKG today, follow up for possible restart of Amiodarone - Per ICU, considering holding Amio 2/2 LFT, Metabolic and respiratory Acidosis - pH stabilized - Ventilation set with elevated RR - Bicarb gtt on hold for now - Continue to monitor Hypercapnic respiratory failure - Patient intubated and sedated with ventilation on PRVC. - Continue with management of vent settings per ID - Continue with xopenex treatments - PRVC 450, RR 30+, PEEP 15, O2 40%, ICU managing Anoxic encephalopathy secondary to cardiac arrest - Code freeze protocol completed - Neurology consulted and following, recs as followed - recommending normothermic, normotensive, head elevated at least 30 degrees - CT head reveals findings concerning for global hypoxic ischemic injury. - EEG reveals very low amplitude rhythm with no normal posterior dominant rhythm. No interictal epileptiform discharges. No seuzire. EEG is abnormal. - Plan to repeat EEG - Currently sedated, seizure precaution, continue Keppra 750mg BID Leukocytosis - ID consulted and following - Continue with broad spectrum antibiotics - Follow up with blood cutlures: no growth after 24 hours - Urine culture final resulted in no growth Possible Lower GI bleed - Drop in H/H with evidence of Hemaemesis - Possibly due to traumatic insertion - OG tube on intermittent suction - GI on consult; f/u with recommendations Acute Kidney Injury - Nonoliguric renal failure, consistent with ATN - avoid nephrotoxic agents, no n eed for dose reduction of abx per nephro - Hematuria likely secondary to heparin gtt GI/DVT ppx - Protonix gtt - Heparin gtt Case and Plan discussed with attending <Hank Ramírez - Last Filed: 02/06/18 14:59> Objective - Vital Signs/Intake and Output Vital Signs (last 24 hours): Temp Pulse Resp BP Pulse Ox 99 F 131 H 30 H 128/56 L 100 02/06/18 11:55 02/06/18 14:30 02/06/18 10:00 02/06/18 14:00 02/06/18 14:30 Intake and Output: 02/06/18 02/06/18 06:59 18:59 Intake Total 1356 368 Output Total 750 Balance 606 368 - Medications Medications: Current Medications Albuterol/Ipratropium (Duoneb 3 Mg/0.5 Mg (3 Ml) Ud) 3 ml IH [id number] PRN PRN Reason: Shortness of Breath Last Admin: 02/06/18 13:40 Dose: 3 ml Artificial Tears (Artificial Tears) 0 ml OU Q8 PRN PRN Reason: Dry eyes Last Admin: 02/06/18 09:18 Dose: 2 drop Aspirin (Aspirin Supp) 300 mg RC DAILY [facility] Last Admin: 02/06/18 10:55 Dose: 300 mg Atorvastatin Calcium (Lipitor) 40 mg PO DIN [facility] Last Admin: 02/05/18 17:12 Dose: Not Given Hydrocortisone Sodium Succinate (Solu-Cortef) 50 mg IVP Q8 [facility] Last Admin: 02/06/18 14:15 Dose: 50 mg Propofol (Diprivan) 1,000 mg in 100 mls @ 3.538 mls/hr IV .Q24H PRN; Protocol; 5 MCG/KG/MIN PRN Reason: TITRATE PER MD ORDER Last Titration: 02/06/18 14:39 Dose: 35 mcg/kg/min, 24.766 mls/hr Cefepime HCl (Maxipime 2gm) 2 gm in 100 mls @ 100 mls/hr IVPB Q12 [facility] PRN Reason: Protocol Stop: 02/09/18 10:01 Last Admin: 02/06/18 09:15 Dose: 100 mls/hr Pantoprazole Sodium (Protonix 40mg Ivpb) 40 mg in 100 mls @ 20 mls/hr IVPB .Q5H [facility] Last Admin: 02/06/18 11:34 Dose: 20 mls/hr Milrinone Lactate/Dextrose (Primacor 20mg/100ml D5w) 100 mls @ 13.268 mls/hr IV .Q7H33M PRN; Protocol; 0.375 MCG/KG/MIN PRN Reason: TITRATE PER MD ORDER Last Admin: 02/06/18 09:32 Dose: 0.375 mcg/kg/min, 13.268 mls/hr Cisatracurium Besylate 200 mg/ (Sodium Chloride) 270 mls @ 9.55 mls/hr IV .Q24H PRN; Protocol; 1 MCG/KG/MIN PRN Reason: TITRATE PER MD ORDER Last Titration: 02/06/18 06:00 Dose: 0 mcg/kg/min, 0 mls/hr Heparin Sodium/Sodium Chloride (Heparin 38262 Units/250ml 1/2 Normal Saline) 25 ,000 units in 250 mls @ 14.152 mls/hr IV .[id number] [facility]; 12 UNITS/KG/HR PRN Reason: Protocol Last Titration: 02/05/18 11:30 Dose: 6 units/kg/hr, 7.076 mls/hr Levetiracetam 750 mg/ Sodium (Chloride) 107.5 mls @ 430 mls/hr IV Q12 [facility] Last Admin: 02/06/18 09:14 Dose: 430 mls/hr NOREPINEPHRINE BIT/0.9 % NACL (Levophed 4 Mg/ 250 Ml Ns Premixed) 4 mg in 250 mls @ 15 mls/hr IV .[id number] PRN; Protocol; 4 MCG/MIN PRN Reason: TITRATE PER MD ORDER Last Titration: 02/04/18 18:00 Dose: 0 mcg/min, 0 mls/hr Midazolam 100 mg/100ml in NS (Midazolam 100 Mg/100ml In Ns) 100 mg in 100 mls @ 1 mls/hr IV .Q24H PRN; Protocol; 1 MG/HR PRN Reason: Sedation Last Titration: 02/06/18 08:20 Dose: 3 mg/hr, 3 mls/hr Insulin Human Regular (Humulin R Med) 0 units SC Q6 [facility] PRN Reason: Protocol Last Admin: 02/06/18 12:55 Dose: 1 units Lorazepam (Ativan) 1 mg IVP Q6H PRN; Protocol PRN Reason: Seizure activity Last Admin: 02/06/18 14:28 Dose: 1 mg - Labs Labs: 02/06/18 05:00 02/06/18 05:00 PT 14.4 SECONDS (9.4-12.5) H 02/05/18 22:05 INR 1.26 (0.93-1.08) H 02/05/18 22:05 APTT 52.4 Seconds (25.1-36.5) H 02/06/18 05:00 Attending/Attestation - Attestation I have personally seen and examined this patient.: Yes I have fully participated in the care of the patient.: Yes I have reviewed all pertinent clinical information, including history, physical exam and plan: Yes Notes (Text): 02/06/18 14:49 Medical record note made by the resident after discussion with my direction and input after the patient was personally seen and examined by me. I have reviewed the chart and agree that the record accurately reflects by personal performance of the history, physical exam, data review, and medical decision-making, in the course for the patient. I have also personally directed the plan of care. 57 yrs old male with PMHx of CAD , SP CABG , HTN, hypothyroidism, s/p Vfib arrest in the field,coded for about 10 mins [address] head showed global anoxic injury. Patient is s/p hypothermic protocol, s/p rewarming. Echo showed EF 25% on Milrinone drip.Patient blood pressure is running on lower side, on pressor.Patient is afebrile, on IV antibiotics as per ID.Cultures are negative Mental status cannot fully asses as patient is sedated, does overbreath the ventilator.EEG reveals very low amplitude rhythm with no normal posterior dominant rhythm. No interictal epileptiform discharges. EEG is abnormal. , repeat EEG is pending Prognosis is guarded Management plan was discussed with family who was at bed side 02/06/18 14:57
--- NOTE | 2018-02-06 14:21 | CP.PCM.PN ---
Subjective - Date & Time of Evaluation Date of Evaluation: 02/06/18 Time of Evaluation: 10:50 - Subjective Subjective: Intubated and sedated, no fevers. Objective - Vital Signs/Intake and Output Vital Signs (last 24 hours): Temp Pulse Resp BP Pulse Ox 98.4 F 128 H 34 H 95/52 L 99 02/06/18 06:00 02/06/18 09:00 02/06/18 07:19 02/06/18 09:00 02/06/18 09:00 Intake and Output: 02/06/18 02/06/18 06:59 18:59 Intake Total 1356 246 Output Total 750 Balance 606 246 - Medications Medications: Current Medications Albuterol/Ipratropium (Duoneb 3 Mg/0.5 Mg (3 Ml) Ud) 3 ml IH [id number] PRN PRN Reason: Shortness of Breath Last Admin: 02/06/18 07:10 Dose: 3 ml Amiodarone HCl (Cordarone) 200 mg PO BID [facility] Artificial Tears (Artificial Tears) 0 ml OU Q8 PRN PRN Reason: Dry eyes Last Admin: 02/06/18 09:18 Dose: 2 drop Aspirin (Aspirin Supp) 300 mg RC DAILY [facility] Atorvastatin Calcium (Lipitor) 40 mg PO DIN [facility] Last Admin: 02/05/18 17:12 Dose: Not Given Hydrocortisone Sodium Succinate (Solu-Cortef) 50 mg IVP Q8 [facility] Last Admin: 02/06/18 07:00 Dose: 50 mg Propofol (Diprivan) 1,000 mg in 100 mls @ 3.538 mls/hr IV .Q24H PRN; Protocol; 5 MCG/KG/MIN PRN Reason: TITRATE PER MD ORDER Last Titration: 02/06/18 08:20 Dose: 25 mcg/kg/min, 17.69 mls/hr Cefepime HCl (Maxipime 2gm) 2 gm in 100 mls @ 100 mls/hr IVPB Q12 [facility] PRN Reason: Protocol Stop: 02/09/18 10:01 Last Admin: 02/06/18 09:15 Dose: 100 mls/hr Pantoprazole Sodium (Protonix 40mg Ivpb) 40 mg in 100 mls @ 20 mls/hr IVPB .Q5H [facility] Last Admin: 02/06/18 06:01 Dose: 20 mls/hr Milrinone Lactate/Dextrose (Primacor 20mg/100ml D5w) 100 mls @ 13.268 mls/hr IV .Q7H33M PRN; Protocol; 0.375 MCG/KG/MIN PRN Reason: TITRATE PER MD ORDER Last Admin: 02/06/18 09:32 Dose: 0.375 mcg/kg/min, 13.268 mls/hr Cisatracurium Besylate 200 mg/ (Sodium Chloride) 270 mls @ 9.55 mls/hr IV .Q24H PRN; Protocol; 1 MCG/KG/MIN PRN Reason: TITRATE PER MD ORDER Last Titration: 02/06/18 06:00 Dose: 0 mcg/kg/min, 0 mls/hr Heparin Sodium/Sodium Chloride (Heparin 15142 Units/250ml 1/2 Normal Saline) 25 ,000 units in 250 mls @ 14.152 mls/hr IV .[id number] [facility]; 12 UNITS/KG/HR PRN Reason: Protocol Last Titration: 02/05/18 11:30 Dose: 6 units/kg/hr, 7.076 mls/hr Levetiracetam 750 mg/ Sodium (Chloride) 107.5 mls @ 430 mls/hr IV Q12 [facility] Last Admin: 02/06/18 09:14 Dose: 430 mls/hr NOREPINEPHRINE BIT/0.9 % NACL (Levophed 4 Mg/ 250 Ml Ns Premixed) 4 mg in 250 mls @ 15 mls/hr IV .[id number] PRN; Protocol; 4 MCG/MIN PRN Reason: TITRATE PER MD ORDER Last Titration: 02/04/18 18:00 Dose: 0 mcg/min, 0 mls/hr Midazolam 100 mg/100ml in NS (Midazolam 100 Mg/100ml In Ns) 100 mg in 100 mls @ 1 mls/hr IV .Q24H PRN; Protocol; 1 MG/HR PRN Reason: Sedation Last Titration: 02/06/18 08:20 Dose: 3 mg/hr, 3 mls/hr Insulin Human Regular (Humulin R Med) 0 units SC Q6 [facility] PRN Reason: Protocol Last Admin: 02/06/18 06:30 Dose: Not Given Lorazepam (Ativan) 1 mg IVP Q6H PRN; Protocol PRN Reason: Seizure activity - Labs Labs: 02/06/18 05:00 02/06/18 05:00 PT 14.4 SECONDS (9.4-12.5) H 02/05/18 22:05 INR 1.26 (0.93-1.08) H 02/05/18 22:05 APTT 52.4 Seconds (25.1-36.5) H 02/06/18 05:00 - Constitutional Appears: Other (intubated and sedated) - Head Exam Head Exam: NORMAL INSPECTION - ENT Exam Additional comments: ET tube in place - Respiratory Exam Respiratory Exam: Decreased Breath Sounds - Cardiovascular Exam Cardiovascular Exam: +S1, +S2 - GI/Abdominal Exam GI & Abdominal Exam: Soft. absent: Tenderness Assessment and Plan - Assessment and Plan (Free Text) Plan: Assessment Systemic Inflammatory response syndrome, consider due to cardiac arrest etiology to be determined, R/O sepsis source to be determined CAD S/P CABG HTN thyroid disease significant smoking history Plan gave the patient a dose of IV Vancomycin and continue Cefepime day 3; blood, urine cx are negative so far, PCT is elevated but patient may have acute DE; reviewed CXR which is showing pulmonary edema; reviewed CT head showing possible hypoxic brain injury - follow up further Neurology recommendations follow up further Cardiology recommendations overall prognosis is poor will continue to monitor clinically
--- NOTE | 2018-02-06 15:09 | CP.PCM.PN ---
Subjective - Date & Time of Evaluation Date of Evaluation: 02/06/18 Time of Evaluation: 11:00 - Subjective Subjective: Patient rewarmed; has been shivering; responding to noxious stimuli per nursing staff; Objective - Vital Signs/Intake and Output Vital Signs (last 24 hours): Temp Pulse Resp BP Pulse Ox 99 F 131 H 30 H 128/56 L 100 02/06/18 11:55 02/06/18 14:30 02/06/18 10:00 02/06/18 14:00 02/06/18 14:30 Intake and Output: 02/06/18 02/06/18 06:59 18:59 Intake Total 1356 401 Output Total 750 Balance 606 401 - Medications Medications: Current Medications Albuterol/Ipratropium (Duoneb 3 Mg/0.5 Mg (3 Ml) Ud) 3 ml IH [id number] PRN PRN Reason: Shortness of Breath Last Admin: 02/06/18 13:40 Dose: 3 ml Artificial Tears (Artificial Tears) 0 ml OU Q8 PRN PRN Reason: Dry eyes Last Admin: 02/06/18 09:18 Dose: 2 drop Aspirin (Aspirin Supp) 300 mg RC DAILY [facility] Last Admin: 02/06/18 10:55 Dose: 300 mg Atorvastatin Calcium (Lipitor) 40 mg PO DIN [facility] Last Admin: 02/05/18 17:12 Dose: Not Given Hydrocortisone Sodium Succinate (Solu-Cortef) 50 mg IVP Q8 [facility] Last Admin: 02/06/18 14:15 Dose: 50 mg Propofol (Diprivan) 1,000 mg in 100 mls @ 3.538 mls/hr IV .Q24H PRN; Protocol; 5 MCG/KG/MIN PRN Reason: TITRATE PER MD ORDER Last Titration: 02/06/18 14:39 Dose: 35 mcg/kg/min, 24.766 mls/hr Cefepime HCl (Maxipime 2gm) 2 gm in 100 mls @ 100 mls/hr IVPB Q12 [facility]ON PRN Reason: Protocol Stop: 02/09/18 10:01 Last Admin: 02/06/18 09:15 Dose: 100 mls/hr Pantoprazole Sodium (Protonix 40mg Ivpb) 40 mg in 100 mls @ 20 mls/hr IVPB .Q5H [facility]ON Last Admin: 02/06/18 11:34 Dose: 20 mls/hr Milrinone Lactate/Dextrose (Primacor 20mg/100ml D5w) 100 mls @ 13.268 mls/hr IV .Q7H33M PRN; Protocol; 0.375 MCG/KG/MIN PRN Reason: TITRATE PER MD ORDER Last Admin: 02/06/18 09:32 Dose: 0.375 mcg/kg/min, 13.268 mls/hr Cisatracurium Besylate 200 mg/ (Sodium Chloride) 270 mls @ 9.55 mls/hr IV .Q24H PRN; Protocol; 1 MCG/KG/MIN PRN Reason: TITRATE PER MD ORDER Last Titration: 02/06/18 06:00 Dose: 0 mcg/kg/min, 0 mls/hr Heparin Sodium/Sodium Chloride (Heparin 68769 Units/250ml 1/2 Normal Saline) 25 ,000 units in 250 mls @ 14.152 mls/hr IV .[id number] DAMON; 12 UNITS/KG/HR PRN Reason: Protocol Last Titration: 02/05/18 11:30 Dose: 6 units/kg/hr, 7.076 mls/hr Levetiracetam 750 mg/ Sodium (Chloride) 107.5 mls @ 430 mls/hr IV Q12 [facility]ON Last Admin: 02/06/18 09:14 Dose: 430 mls/hr NOREPINEPHRINE BIT/0.9 % NACL (Levophed 4 Mg/ 250 Ml Ns Premixed) 4 mg in 250 mls @ 15 mls/hr IV .[id number] PRN; Protocol; 4 MCG/MIN PRN Reason: TITRATE PER MD ORDER Last Titration: 02/04/18 18:00 Dose: 0 mcg/min, 0 mls/hr Midazolam 100 mg/100ml in NS (Midazolam 100 Mg/100ml In Ns) 100 mg in 100 mls @ 1 mls/hr IV .Q24H PRN; Protocol; 1 MG/HR PRN Reason: Sedation Last Titration: 02/06/18 14:40 Dose: 5 mg/hr, 5 mls/hr Insulin Human Regular (Humulin R Med) 0 units SC Q6 DAMON PRN Reason: Protocol Last Admin: 02/06/18 12:55 Dose: 1 units Lorazepam (Ativan) 1 mg IVP Q6H PRN; Protocol PRN Reason: Seizure activity Last Admin: 02/06/18 14:28 Dose: 1 mg - Labs Labs: 02/06/18 05:00 02/06/18 05:00 PT 14.4 SECONDS (9.4-12.5) H 02/05/18 22:05 INR 1.26 (0.93-1.08) H 02/05/18 22:05 APTT 52.4 Seconds (25.1-36.5) H 02/06/18 05:00 - Constitutional Appears: Non-toxic, No Acute Distress - Eye Exam Eye Exam: absent: Scleral icterus - Respiratory Exam Respiratory Exam: Clear to Ausculation Bilateral. absent: Respiratory Distress - Cardiovascular Exam Cardiovascular Exam: +S1, +S2. absent: Gallop - GI/Abdominal Exam GI & Abdominal Exam: Soft. absent: Distended - Extremities Exam Additional comments: no leg edema; - Neurological Exam Additional comments: responding only to noxious stimuli; sedated; no longer on paralytic; - Psychiatric Exam Psychiatric exam: absent: Agitated - Skin Skin Exam: Warm. absent: Cyanosis Assessment and Plan (1) Acute kidney injury Assessment & Plan: Resolving; ok to give IV diuresis as deemed needed to target euvolemia in patient with severe LV dysfunction; should not stop for mild increases in serum creatinine; Status: Acute (2) CHF (congestive heart failure) Assessment & Plan: see above; Status: Acute
[2018-02-06] MEDS: Fentanyl 1000mcg/100ml NS 1,000 MCG/100 ML BAG IV PRN (15:58)
[2018-02-06] MEDS: Heparin25000 units/250ml 1/2NS 25,000 UNITS/250 ML BAG IV SCH ×2 (18:34)
[2018-02-07] MEDS: Milrinone 20mg/100ml D5W 100 ML IV PRN ×3 (00:29→18:08)
[2018-02-07] MEDS: Insulin Reg-MEDIUM-Coverage SC SCH ×4 (00:40→18:07)
[2018-02-07] MEDS: Propofol 10 mg/ml 1,000 MG/100 ML VIAL IV PRN ×5 (01:41→23:31)
[2018-02-07] MEDS: Fentanyl 1000mcg/100ml NS 1,000 MCG/100 ML BAG IV PRN ×2 (01:56→14:21)
[2018-02-07] MEDS: Pantoprazole 40mg/100mL NS 40 MG/100 ML BAG IVPB SCH ×4 (04:04→22:00)
--- NOTE | 2018-02-07 06:08 | CP.PCM.PN ---
Subjective - Date & Time of Evaluation Date of Evaluation: 02/07/18 Time of Evaluation: 06:08 - Subjective Subjective: Mr. Armenta was seen and examined at the bedside in ICU. He remains on mechanical ventilator on PRVC mode with GCS 3T.. He is currently receiving propofol, midazolam and fentanyl for sedation with pupils pinpoint and no corneal and gag reflex, but occasional breaths over the set vent settings. He is also receiving a vasopressor. There was no untoward events overnight. Objective - Vital Signs/Intake and Output Vital Signs (last 24 hours): Temp Pulse Resp BP Pulse Ox 97.8 F 94 H 30 H 103/62 100 02/07/18 00:00 02/07/18 04:50 02/06/18 10:00 02/07/18 04:30 02/07/18 04:50 Intake and Output: 02/06/18 02/07/18 18:59 06:59 Intake Total 2028 565 Output Total 500 Balance 1528 565 - Medications Medications: Current Medications Albuterol/Ipratropium (Duoneb 3 Mg/0.5 Mg (3 Ml) Ud) 3 ml IH [id number] PRN PRN Reason: Shortness of Breath Last Admin: 02/06/18 13:40 Dose: 3 ml Artificial Tears (Artificial Tears) 0 ml OU Q8 PRN PRN Reason: Dry eyes Last Admin: 02/06/18 17:19 Dose: 2 drop Aspirin (Aspirin Chewable) 81 mg PO DAILY [facility] Atorvastatin Calcium (Lipitor) 40 mg PO DIN [facility] Last Admin: 02/05/18 17:12 Dose: Not Given Hydrocortisone Sodium Succinate (Solu-Cortef) 50 mg IVP Q8 [facility] Last Admin: 02/07/18 05:05 Dose: 50 mg Propofol (Diprivan) 1,000 mg in 100 mls @ 3.538 mls/hr IV .Q24H PRN; Protocol; 5 MCG/KG/MIN PRN Reason: TITRATE PER MD ORDER Last Titration: 02/07/18 01:45 Dose: 35 mcg/kg/min, 24.766 mls/hr Cefepime HCl (Maxipime 2gm) 2 gm in 100 mls @ 100 mls/hr IVPB Q12 [facility]ON PRN Reason: Protocol Stop: 02/09/18 10:01 Last Admin: 02/06/18 22:20 Dose: 100 mls/hr Pantoprazole Sodium (Protonix 40mg Ivpb) 40 mg in 100 mls @ 20 mls/hr IVPB .Q5H [facility] Last Admin: 02/07/18 04:04 Dose: 20 mls/hr Milrinone Lactate/Dextrose (Primacor 20mg/100ml D5w) 100 mls @ 13.268 mls/hr IV .Q7H33M PRN; Protocol; 0.375 MCG/KG/MIN PRN Reason: TITRATE PER MD ORDER Last Admin: 02/07/18 00:29 Dose: 0.375 mcg/kg/min, 13.268 mls/hr Cisatracurium Besylate 200 mg/ (Sodium Chloride) 270 mls @ 9.55 mls/hr IV .Q24H PRN; Protocol; 1 MCG/KG/MIN PRN Reason: TITRATE PER MD ORDER Last Titration: 02/06/18 06:00 Dose: 0 mcg/kg/min, 0 mls/hr Heparin Sodium/Sodium Chloride (Heparin 14386 Units/250ml 1/2 Normal Saline) 25 ,000 units in 250 mls @ 14.152 mls/hr IV .[id number] DAMON; 12 UNITS/KG/HR PRN Reason: Protocol Last Admin: 02/06/18 18:34 Dose: 6 units/kg/hr, 7.076 mls/hr Levetiracetam 750 mg/ Sodium (Chloride) 107.5 mls @ 430 mls/hr IV Q12 [facility]ON Last Admin: 02/06/18 21:50 Dose: 430 mls/hr NOREPINEPHRINE BIT/0.9 % NACL (Levophed 4 Mg/ 250 Ml Ns Premixed) 4 mg in 250 mls @ 15 mls/hr IV .[id number] PRN; Protocol; 4 MCG/MIN PRN Reason: TITRATE PER MD ORDER Last Titration: 02/04/18 18:00 Dose: 0 mcg/min, 0 mls/hr Midazolam 100 mg/100ml in NS (Midazolam 100 Mg/100ml In Ns) 100 mg in 100 mls @ 1 mls/hr IV .Q24H PRN; Protocol; 1 MG/HR PRN Reason: Sedation Last Titration: 02/07/18 02:00 Dose: 6 mg/hr, 6 mls/hr Fentanyl Citrate (Fentanyl Citrate/Sodium Chloride 1 Mg/100 Ml) 1,000 mcg in 100 mls @ 2 mls/hr IV .Q24H PRN; Protocol; 20 MCG/HR PRN Reason: TITRATE PER MD ORDER Last Admin: 02/07/18 01:56 Dose: 80 mcg/hr, 8 mls/hr Insulin Human Regular (Humulin R Med) 0 units SC Q6 [facility]ON PRN Reason: Protocol Last Admin: 02/07/18 00:40 Dose: Not Given Lorazepam (Ativan) 1 mg IVP Q6H PRN; Protocol PRN Reason: Seizure activity Last Admin: 02/06/18 14:28 Dose: 1 mg - Labs Labs: 02/06/18 05:00 02/06/18 05:00 PT 14.4 SECONDS (9.4-12.5) H 02/05/18 22:05 INR 1.26 (0.93-1.08) H 02/05/18 22:05 APTT 52.4 Seconds (25.1-36.5) H 02/06/18 05:00 - Constitutional Appears: No Acute Distress - Head Exam Head Exam: NORMAL INSPECTION - Eye Exam Pupil Exam: Fixed Additional comments: 2 mm - Neurological Exam Neuro motor strength exam: Left Upper Extremity: 0, Right Upper Extremity: 0, Left Lower Extremity: 0, Right Lower Extremity: 0 Additional comments: GCS-3T Assessment and Plan (1) Anoxic brain injury Assessment & Plan: Case discussed with Dr. Whitlock, continue all current medical regimen. Recommend to repeat EEG on Thursday and CT scan of head without contrast. Recommend normothermic, normotensive, keep head of bed elevated at least 30 degrees. Status: Acute
[2018-02-07 06:25] LABS: BASO # 0.01 K/mm3 (0.0-2.0); BASO % 0.1 % (0.0-3.0); EOS # 0.1 (0.0-0.7); EOS % 0.7 % (1.5-5.0); GRAN # 8.74 (1.4-6.5); GRAN % 77.8 % (50.0-68.0); HEMOGLOBIN 10.9 g/dL (14.0-18.0); LYMPH # 1.7 (1.2-3.4); LYMPH % 14.9 % (22.0-35.0); MEAN CELL VOLUME 85.2 fl (80.0-105.0); MEAN CORPUSCULAR HEMOGLOBIN 29.4 pg (25.0-35.0); MEAN CORPUSCULAR HGB CONC 34.5 g/dl (31.0-37.0); MEAN PLATELET VOLUME 10.4 fl (7.0-11.0); MONO # 0.7 (0.1-0.6); MONO % 6.5 % (1.0-6.0); RBC 3.71 10^6/uL (3.5-6.1); RED CELL DISTRIBUTION WIDTH 14.3 % (11.5-14.5); WHITE BLOOD COUNT 11.2 10^3/ul (4.5-11.0)
[2018-02-07 06:29] LABS: ARTERIAL BLOOD GAS HCO3 15.6 mmol/L (21-28); ARTERIAL BLOOD GAS O2 SAT 99.3 % (95-98); ARTERIAL BLOOD GAS PCO2 22 mm/Hg (35-45); ARTERIAL BLOOD GAS PH 7.46 (7.35-7.45); ARTERIAL BLOOD GAS TCO2 16.3 mmol.L (22-28)
--- NOTE | 2018-02-07 06:39 | CP.CCUPN ---
<SalomónElisha - Last Filed: 02/07/18 12:32> CCU Subjective - Physician Review Subjective (Free Text): 02/05/18 12:12 Start rewarming now (less than 0.5 degree per hr till 98 F) No acute event overnight. Propofol 15 milrinone gtt 0.375 Amiodarino gtt should be stopped at noon now HR > [address] Soto: change dubneb PRN 02/07/18 12:26 Yesterday, vacation holiday but seen seizure Today 1 BM overnight, soft brown U/O 320 and gastric output 520 / over 24 hours CCU Objective - Vital Signs / Intake & Output Vital Signs (Last 4 hours): Vital Signs Pulse BP Pulse Ox 02/07/18 04:50 94 H 100 02/07/18 04:40 94 H 100 02/07/18 04:30 95 H 103/62 100 02/07/18 04:20 93 H 100 02/07/18 04:10 93 H 100 02/07/18 04:00 93 H 105/58 L 100 02/07/18 03:50 93 H 100 02/07/18 03:40 92 H 100 02/07/18 03:30 91 H 115/57 L 100 02/07/18 03:20 91 H 100 02/07/18 03:10 93 H 100 02/07/18 03:00 92 H 117/46 L 100 02/07/18 02:50 95 H 100 02/07/18 02:40 96 H 100 Intake and Output (Last 8hrs): Intake & Output 02/06/18 02/06/18 02/07/18 14:59 22:59 06:59 Intake Total 1598 630 365 Output Total 500 Balance 1098 630 365 Weight 268 lb Intake: IV 1568 630 365 Right Internal Jugular 1167 Tube Feeding 30 Output: Gastric Amount 200 Stomach 200 Urine 300 Urethral (Garcia) 300 Other: # Bowel Movements 1 - Physical Exam Head: Positive for: Atraumatic, Normocephalic Pupils: Positive for: Other (Pupils fixed bilaterally) Conjunctiva: Positive for: Normal Mouth: Positive for: Moist Mucous Membranes Respiratory/Chest: Positive for: Clear to Auscultation, Good Air Exchange ( Equal breath sounds bilaterally), Decreased Breath Sounds, Rales, Rhonchi. Negative for: Wheezes Cardiovascular: Positive for: Regular Rate and Rhythm, Normal S1, S2. Negative for: Murmurs Abdomen: Negative for: Distention, Peritoneal Signs Upper Extremity: Negative for: Cyanosis, Edema Lower Extremity: Negative for: Edema Neurological: Positive for: Normal Sensory Function (Responsive to painful stimuli but now sedated) Skin: Positive for: Warm, Dry, Normal Color. Negative for: Rashes - Medications Active Medications: Active Medications Generic Name Dose Route Start Last Admin Trade Name Freq PRN Reason Stop Dose Admin Albuterol/Ipratropium 3 ml 02/05/18 12:47 02/06/18 13:40 Duoneb 3 Mg/0.5 Mg (3 Ml) Ud IH 3 ml [id number] PRN Administration Shortness of Breath Artificial Tears 0 ml 02/04/18 15:56 02/06/18 17:19 Artificial Tears OU 2 drop Q8 PRN Administration Dry eyes Aspirin 81 mg 02/07/18 10:00 Aspirin Chewable PO DAILY DAMON Atorvastatin Calcium 40 mg 02/04/18 17:00 02/05/18 17:12 Lipitor PO Not Given DIN DAMON Hydrocortisone Sodium Succinate 50 mg 02/05/18 22:00 02/07/18 05:05 Solu-Cortef IVP 50 mg Q8 DAMON Administration Propofol 1,000 mg in 100 mls @ 3.538 mls/hr 02/04/18 05:03 02/07/18 01:45 Diprivan IV 35 mcg/kg/min .Q24H PRN 24.766 mls/hr TITRATE PER MD ORDER Titration Protocol 5 MCG/KG/MIN Cefepime HCl 2 gm in 100 mls @ 100 mls/hr 02/04/18 10:00 02/06/18 22:20 Maxipime 2gm IVPB 02/09/18 10:01 100 mls/hr Q12 DAMON Administration Protocol Pantoprazole Sodium 40 mg in 100 mls @ 20 mls/hr 02/04/18 09:00 02/07/18 04: 04 Protonix 40mg Ivpb IVPB 20 mls/hr .Q5H DAMON Administration Milrinone Lactate/Dextrose 100 mls @ 13.268 mls/hr 02/04/18 08:59 02/07/18 00 :29 Primacor 20mg/100ml D5w IV 0.375 mcg/kg/min .Q7H33M PRN 13.268 mls/hr TITRATE PER MD ORDER Administration Protocol 0.375 MCG/KG/MIN Cisatracurium Besylate 200 mg/ 270 mls @ 9.55 mls/hr 02/04/18 09:00 02/06/18 06:00 Sodium Chloride IV 0 mcg/kg/min .Q24H PRN 0 mls/hr TITRATE PER MD ORDER Titration Protocol 1 MCG/KG/MIN Heparin Sodium/Sodium Chloride 25,000 units in 250 mls @ 14.152 mls/hr 09:15 02/06/18 18:34 Heparin 92979 Units/250ml 1/2 Normal Saline IV 6 units/kg/hr .[id number] DAMON 7.076 mls/hr Protocol Administration 12 UNITS/KG/HR Levetiracetam 750 mg/ Sodium 107.5 mls @ 430 mls/hr 02/04/18 22:00 02/06/18 21:50 Chloride IV 430 mls/hr Q12 DAMON Administration NOREPINEPHRINE BIT/0.9 % NACL 4 mg in 250 mls @ 15 mls/hr 02/04/18 15:23 03/17 18:00 Levophed 4 Mg/ 250 Ml Ns Premixed IV 0 mcg/min .[id number] PRN 0 mls/hr TITRATE PER MD ORDER Titration Protocol 4 MCG/MIN Midazolam 100 mg/100ml in NS 100 mg in 100 mls @ 1 mls/hr 02/06/18 05:52 06/17 02:00 Midazolam 100 Mg/100ml In Ns IV 6 mg/hr .Q24H PRN 6 mls/hr Sedation Titration Protocol 1 MG/HR Fentanyl Citrate 1,000 mcg in 100 mls @ 2 mls/hr 02/06/18 15:13 02/07/18 01: 56 Fentanyl Citrate/Sodium Chloride 1 Mg/100 Ml IV 80 mcg/hr .Q24H PRN 8 mls/hr TITRATE PER MD ORDER Administration Protocol 20 MCG/HR Insulin Human Regular 0 units 02/05/18 12:00 02/07/18 00:40 Humulin R Med SC Not Given Q6 DAMON Protocol Lorazepam 1 mg 02/05/18 18:40 02/06/18 14:28 Ativan IVP 1 mg Q6H PRN Administration Seizure activity Protocol - Patient Studies Lab Studies: Microbiology Studies 02/05/18 14:09 Urine Culture - Final Urine,Catheterized No Growth (<1,000 CFU/ML) 02/04/18 07:00 Blood Culture - Preliminary Blood-Venous NO GROWTH AFTER 48 HOURS 02/04/18 06:45 Blood Culture - Preliminary Blood-Venous NO GROWTH AFTER 48 HOURS 02/05/18 06:30 Blood Culture - Preliminary Blood NO GROWTH AFTER 24 HOURS Lab Studies 02/07/18 02/07/18 02/06/18 Range/Units 06:07 00:27 18:23 POC Glucose (mg/dL) 157 H 158 H 136 H (65-110) mg/dL Ionized Calcium (4.80-5.60) mg/dL 02/06/18 02/05/18 02/05/18 Range/Units 12:01 15:24 06:00 POC Glucose (mg/dL) 171 H (65-110) mg/dL Ionized Calcium 4.0 L 3.4 L (4.80-5.60) mg/dL 02/05/18 Range/Units 01:20 POC Glucose (mg/dL) (65-110) mg/dL Ionized Calcium 3.6 L (4.80-5.60) mg/dL Laboratory Results - last 24 hr 02/05/18 02/05/18 02/05/18 01:20 06:00 15:24 POC Glucose (mg/dL) Ionized Calcium 3.6 L 3.4 L 4.0 L 02/06/18 02/06/18 02/07/18 12:01 18:23 00:27 POC Glucose (mg/dL) 171 H 136 H 158 H Ionized Calcium 02/07/18 06:07 POC Glucose (mg/dL) 157 H Ionized Calcium EKG/Cardiology Studies: Cardiology / EKG Studies 02/06/18 11:34 EKG [ELECTROCARDIOGRAM] Stat Comment: Reason For Exam: tachycardia Fingerstick Blood Sugar Results: 158 Assessment/Plan - Assessment and Plan (Free Text) Plan: Mr Ordonez, 57yomale with PMHx of CAD s/p CABG with 4 stents, HTN, hypothyroidism, s/p Vfib arrest in the field, s/p hypothermic protocol, s/p rewarming. Pt currently Afebrile, HD stable, comfortable in NAD, on Milrinone drip. Cannot fully asses neuroligcal exam, as patient is sedated, does overbreath the ventilator. EEG done on admission, No seizure CTH done on admission, c/w anoxic brain injury, repeat CTH and EEG tomorrow. Neurology following. CXR noted with bilateral pulm vasc congestion, cannot rule out infiltrate. Procalc 2.75 S/p V fib cardiac arrest with anoxic brain injury and seizure, ventilator dependent respiratory failure CAD s/p CABG s/p stent HTN Hypothyroid s/p Vfib cardiac arrest CHF acute decompensated systolic rule out PNA Recommend: - cont with vent support, low tidal vol ventilation, daily sedation vacation CPAP trials as tolerated, ABG acceptable - Duonebs PRN - Cont with broad spectrum abx, as per ID; taper stress steroid - follow up cultures - maintain MAP >65 - ASA - Milrinone drip - would hold off AMio for now, given LFTs, and normal sinus rhythm - follow up cardiology - ECHO - Lasix IV diuresis - monitor HH - monitor LFTs - follow up renal - Repeat EEG, CTH tomorrow. Increase keppra 1g Q12 - follow up neurology - Heparin drip - monitor I/Os - GI ppx - DVT ppx - Monitor in MICU s/r/d/w Dr. Galo <Ji Galo - Last Filed: 02/07/18 13:06> CCU Objective - Vital Signs / Intake & Output Vital Signs (Last 4 hours): Vital Signs Temp Pulse Resp BP Pulse Ox 02/07/18 12:50 96.3 F L 67 100 02/07/18 12:40 96.3 F L 68 100 02/07/18 12:30 96.4 F L 70 103/46 L 99 02/07/18 12:20 96.4 F L 70 99 02/07/18 12:10 96.4 F L 71 99 02/07/18 12:00 96.6 F L 71 103/38 L 99 02/07/18 11:50 96.6 F L 73 98 02/07/18 11:40 96.6 F L 73 99 02/07/18 11:30 96.8 F L 72 101/49 L 100 02/07/18 11:20 97.0 F L 78 100 02/07/18 11:10 97.2 F L 76 100 02/07/18 11:00 97.2 F L 73 105/52 L 100 02/07/18 10:50 97.2 F L 74 100 02/07/18 10:40 97.2 F L 74 100 02/07/18 10:30 97.2 F L 75 133/58 L 100 02/07/18 10:20 97.3 F L 77 100 02/07/18 10:10 97.2 F L 76 100 02/07/18 10:00 97.2 F L 78 24 118/59 L 100 02/07/18 09:50 97.2 F L 73 100 02/07/18 09:40 97.0 F L 70 99 02/07/18 09:31 97.0 F L 71 139/72 100 02/07/18 09:30 97.0 F L 75 100 02/07/18 09:20 97.2 F L 78 100 02/07/18 09:10 97.0 F L 76 100 Intake and Output (Last 8hrs): Intake & Output 02/06/18 02/07/18 02/07/18 22:59 06:59 14:59 Intake Total 630 1368 498 Output Total 350 Balance 630 1018 498 Intake: IV 630 1368 498 Right Forearm 314 abx 100 fentanyl 88 heparin 66 primacor 78 protonix 220 versed 72 Output: Gastric Amount 125 Stomach 125 Urine 225 Urethral (Garcia) 225 Other: # Bowel Movements 1 - Medications Active Medications: Active Medications Generic Name Dose Route Start Last Admin Trade Name Freq PRN Reason Stop Dose Admin Albuterol/Ipratropium 3 ml 02/05/18 12:47 02/07/18 07:07 Duoneb 3 Mg/0.5 Mg (3 Ml) Ud IH 3 ml [id number] PRN Administration Shortness of Breath Artificial Tears 0 ml 02/04/18 15:56 02/07/18 08:40 Artificial Tears OU 2 drop Q8 PRN Administration Dry eyes Aspirin 81 mg 02/07/18 10:00 02/07/18 10:18 Aspirin Chewable PO 81 mg DAILY DAMON Administration Atorvastatin Calcium 40 mg 02/04/18 17:00 02/05/18 17:12 Lipitor PO Not Given DIN DAMON Hydrocortisone Sodium Succinate 50 mg 02/05/18 22:00 02/07/18 05:05 Solu-Cortef IVP 50 mg Q8 DAMON Administration Propofol 1,000 mg in 100 mls @ 3.538 mls/hr 02/04/18 05:03 02/07/18 10:19 Diprivan IV 35 mcg/kg/min .Q24H PRN 24.766 mls/hr TITRATE PER MD ORDER Administration Protocol 5 MCG/KG/MIN Cefepime HCl 2 gm in 100 mls @ 100 mls/hr 02/04/18 10:00 02/07/18 10:20 Maxipime 2gm IVPB 02/09/18 10:01 100 mls/hr Q12 DAMON Administration Protocol Pantoprazole Sodium 40 mg in 100 mls @ 20 mls/hr 02/04/18 09:00 02/07/18 09: 47 Protonix 40mg Ivpb IVPB 20 mls/hr .Q5H DAMON Administration Milrinone Lactate/Dextrose 100 mls @ 13.268 mls/hr 02/04/18 08:59 02/07/18 08 :37 Primacor 20mg/100ml D5w IV 0.375 mcg/kg/min .Q7H33M PRN 13.268 mls/hr TITRATE PER MD ORDER Administration Protocol 0.375 MCG/KG/MIN Cisatracurium Besylate 200 mg/ 270 mls @ 9.55 mls/hr 02/04/18 09:00 02/06/18 06:00 Sodium Chloride IV 0 mcg/kg/min .Q24H PRN 0 mls/hr TITRATE PER MD ORDER Titration Protocol 1 MCG/KG/MIN Heparin Sodium/Sodium Chloride 25,000 units in 250 mls @ 14.152 mls/hr 09:15 02/07/18 08:26 Heparin 23704 Units/250ml 1/2 Normal Saline IV 8 units/kg/hr .[id number] DAMON 9.435 mls/hr Protocol Titration 12 UNITS/KG/HR NOREPINEPHRINE BIT/0.9 % NACL 4 mg in 250 mls @ 15 mls/hr 02/04/18 15:23 03/17 18:00 Levophed 4 Mg/ 250 Ml Ns Premixed IV 0 mcg/min .[id number] PRN 0 mls/hr TITRATE PER MD ORDER Titration Protocol 4 MCG/MIN Midazolam 100 mg/100ml in NS 100 mg in 100 mls @ 1 mls/hr 02/06/18 05:52 06/17 10:21 Midazolam 100 Mg/100ml In Ns IV 6 mg/hr .Q24H PRN 6 mls/hr Sedation Administration Protocol 1 MG/HR Fentanyl Citrate 1,000 mcg in 100 mls @ 2 mls/hr 02/06/18 15:13 02/07/18 01: 56 Fentanyl Citrate/Sodium Chloride 1 Mg/100 Ml IV 80 mcg/hr .Q24H PRN 8 mls/hr TITRATE PER MD ORDER Administration Protocol 20 MCG/HR Doxycycline Hyclate 100 mg/ 100 mls @ 100 mls/hr 02/07/18 22:00 Sodium Chloride IVPB Q12 DAMON Protocol Sodium Phosphate 30 mmole/ 260 mls @ 42.5 mls/hr 02/07/18 12:34 Dextrose IVPB 02/07/18 18:41 ONCE ONE Levetiracetam 1,000 mg/ Sodium 110 mls @ 430 mls/hr 02/07/18 12:36 Chloride IV Q12 [facility] Insulin Human Regular 0 units 02/05/18 12:00 02/07/18 12:20 Humulin R Med SC Not Given Q6 DAMON Protocol Lorazepam 1 mg 02/05/18 18:40 02/06/18 14:28 Ativan IVP 1 mg Q6H PRN Administration Seizure activity Protocol - Patient Studies Lab Studies: Microbiology Studies 02/04/18 07:00 Blood Culture - Preliminary Blood-Venous NO GROWTH AFTER 3 DAYS 02/04/18 06:45 Blood Culture - Preliminary Blood-Venous NO GROWTH AFTER 3 DAYS 02/05/18 06:30 Blood Culture - Preliminary Blood NO GROWTH AFTER 48 HOURS 02/05/18 14:09 Urine Culture - Final Urine,Catheterized No Growth (<1,000 CFU/ML) Lab Studies 02/07/18 02/07/18 02/07/18 Range/Units 12:15 06:07 06:00 WBC (4.5-11.0) 10^3/ul RBC (3.5-6.1) 10^6/uL Hgb (14.0-18.0) g/dL Hct (42.0-52.0) % MCV (80.0-105.0) fl MCH (25.0-35.0) pg MCHC (31.0-37.0) g/dl RDW (11.5-14.5) % Plt Count (120.0-450.0) 10^3/uL MPV (7.0-11.0) fl Gran % (50.0-68.0) % Lymph % (Auto) (22.0-35.0) % [place] % (Auto) (1.0-6.0) % Eos % (Auto) (1.5-5.0) % Baso % (Auto) (0.0-3.0) % Gran # (1.4-6.5) Lymph # (Auto) (1.2-3.4) [place] # (Auto) (0.1-0.6) Eos # (Auto) (0.0-0.7) Baso # (Auto) (0.0-2.0) K/mm3 APTT 40.6 H (25.1-36.5) Seconds pCO2 (35-45) mm/Hg pO2 (80-100) mm/Hg HCO3 (21-28) mmol/L ABG pH (7.35-7.45) ABG Total CO2 (22-28) mmol.L ABG O2 Saturation (95-98) % ABG Base Excess (-2.0-3.0) mmol/L ABG Potassium (3.6-5.2) mmol/L Sodium (132-148) mmol/L Chloride (98-107) mmol/L Glucose (75-110) mg/dl Lactate (0.7-2.1) mmol/L FiO2 % Potassium (3.6-5.0) mmol/L Carbon Dioxide (21-33) mmol/L Anion Gap (10-20) BUN (7-21) mg/dL Creatinine (0.8-1.5) mg/dl Est GFR ( Amer) Est GFR (Non-Af Amer) POC Glucose (mg/dL) 151 H 157 H (65-110) mg/dL Random Glucose (70-110) mg/dL Calcium (8.4-10.5) mg/dL Ionized Calcium (4.80-5.60) mg/dL Phosphorus (2.5-4.5) mg/dL Magnesium (1.7-2.2) mg/dL Total Bilirubin (0.2-1.3) mg/dL AST (17-59) U/L ALT (7-56) U/L Alkaline Phosphatase (38-126) U/L Total Protein (5.8-8.3) g/dL Albumin (3.0-4.8) g/dL Globulin gm/dL Albumin/Globulin Ratio (1.1-1.8) Arterial Blood Potassium (3.6-5.2) mmol/L 02/07/18 02/07/18 02/07/18 Range/Units 06:00 06:00 06:00 WBC 11.2 H D (4.5-11.0) 10^3/ul RBC 3.71 (3.5-6.1) 10^6/uL Hgb 10.9 L D (14.0-18.0) g/dL Hct 31.6 L (42.0-52.0) % MCV 85.2 (80.0-105.0) fl MCH 29.4 (25.0-35.0) pg MCHC 34.5 (31.0-37.0) g/dl RDW 14.3 (11.5-14.5) % Plt Count 114 L (120.0-450.0) 10^3/uL MPV 10.4 (7.0-11.0) fl Gran % 77.8 H (50.0-68.0) % Lymph % (Auto) 14.9 L (22.0-35.0) % [place] % (Auto) 6.5 H (1.0-6.0) % Eos % (Auto) 0.7 L (1.5-5.0) % Baso % (Auto) 0.1 (0.0-3.0) % Gran # 8.74 H (1.4-6.5) Lymph # (Auto) 1.7 (1.2-3.4) [place] # (Auto) 0.7 H (0.1-0.6) Eos # (Auto) 0.1 (0.0-0.7) Baso # (Auto) 0.01 (0.0-2.0) K/mm3 APTT (25.1-36.5) Seconds pCO2 22 L (35-45) mm/Hg pO2 201.0 H (80-100) mm/Hg HCO3 15.6 L (21-28) mmol/L ABG pH 7.46 H (7.35-7.45) ABG Total CO2 16.3 L (22-28) mmol.L ABG O2 Saturation 99.3 H (95-98) % ABG Base Excess -6.1 L (-2.0-3.0) mmol/L ABG Potassium 2.4 L* (3.6-5.2) mmol/L Sodium 149.0 H 141 (132-148) mmol/L Chloride 124.0 H 109 H (98-107) mmol/L Glucose 100 (75-110) mg/dl Lactate 0.8 (0.7-2.1) mmol/L FiO2 40.0 % Potassium 4.3 (3.6-5.0) mmol/L Carbon Dioxide 25 (21-33) mmol/L Anion Gap 12 (10-20) BUN 30 H (7-21) mg/dL Creatinine 1.1 (0.8-1.5) mg/dl Est GFR ( Amer) > 60 Est GFR (Non-Af Amer) > 60 POC Glucose (mg/dL) (65-110) mg/dL Random Glucose 164 H (70-110) mg/dL Calcium 7.9 L (8.4-10.5) mg/dL Ionized Calcium (4.80-5.60) mg/dL Phosphorus 1.2 L* (2.5-4.5) mg/dL Magnesium 2.2 (1.7-2.2) mg/dL Total Bilirubin 0.8 (0.2-1.3) mg/dL AST 43 (17-59) U/L ALT 66 H (7-56) U/L Alkaline Phosphatase 42 (38-126) U/L Total Protein 5.2 L (5.8-8.3) g/dL Albumin 2.6 L (3.0-4.8) g/dL Globulin 2.6 gm/dL Albumin/Globulin Ratio 1.0 L (1.1-1.8) Arterial Blood Potassium 2.4 L* (3.6-5.2) mmol/L 02/07/18 02/06/18 02/05/18 Range/Units 00:27 18:23 06:00 WBC (4.5-11.0) 10^3/ul RBC (3.5-6.1) 10^6/uL Hgb (14.0-18.0) g/dL Hct (42.0-52.0) % MCV (80.0-105.0) fl MCH (25.0-35.0) pg MCHC (31.0-37.0) g/dl RDW (11.5-14.5) % Plt Count (120.0-450.0) 10^3/uL MPV (7.0-11.0) fl Gran % (50.0-68.0) % Lymph % (Auto) (22.0-35.0) % [place] % (Auto) (1.0-6.0) % Eos % (Auto) (1.5-5.0) % Baso % (Auto) (0.0-3.0) % Gran # (1.4-6.5) Lymph # (Auto) (1.2-3.4) [place] # (Auto) (0.1-0.6) Eos # (Auto) (0.0-0.7) Baso # (Auto) (0.0-2.0) K/mm3 APTT (25.1-36.5) Seconds pCO2 (35-45) mm/Hg pO2 (80-100) mm/Hg HCO3 (21-28) mmol/L ABG pH (7.35-7.45) ABG Total CO2 (22-28) mmol.L ABG O2 Saturation (95-98) % ABG Base Excess (-2.0-3.0) mmol/L ABG Potassium (3.6-5.2) mmol/L Sodium (132-148) mmol/L Chloride (98-107) mmol/L Glucose (75-110) mg/dl Lactate (0.7-2.1) mmol/L FiO2 % Potassium (3.6-5.0) mmol/L Carbon Dioxide (21-33) mmol/L Anion Gap (10-20) BUN (7-21) mg/dL Creatinine (0.8-1.5) mg/dl Est GFR ( Amer) Est GFR (Non-Af Amer) POC Glucose (mg/dL) 158 H 136 H (65-110) mg/dL Random Glucose (70-110) mg/dL Calcium (8.4-10.5) mg/dL Ionized Calcium 3.4 L (4.80-5.60) mg/dL Phosphorus (2.5-4.5) mg/dL Magnesium (1.7-2.2) mg/dL Total Bilirubin (0.2-1.3) mg/dL AST (17-59) U/L ALT (7-56) U/L Alkaline Phosphatase (38-126) U/L Total Protein (5.8-8.3) g/dL Albumin (3.0-4.8) g/dL Globulin gm/dL Albumin/Globulin Ratio (1.1-1.8) Arterial Blood Potassium (3.6-5.2) mmol/L 02/05/18 Range/Units 01:20 WBC (4.5-11.0) 10^3/ul RBC (3.5-6.1) 10^6/uL Hgb (14.0-18.0) g/dL Hct (42.0-52.0) % MCV (80.0-105.0) fl MCH (25.0-35.0) pg MCHC (31.0-37.0) g/dl RDW (11.5-14.5) % Plt Count (120.0-450.0) 10^3/uL MPV (7.0-11.0) fl Gran % (50.0-68.0) % Lymph % (Auto) (22.0-35.0) % [place] % (Auto) (1.0-6.0) % Eos % (Auto) (1.5-5.0) % Baso % (Auto) (0.0-3.0) % Gran # (1.4-6.5) Lymph # (Auto) (1.2-3.4) [place] # (Auto) (0.1-0.6) Eos # (Auto) (0.0-0.7) Baso # (Auto) (0.0-2.0) K/mm3 APTT (25.1-36.5) Seconds pCO2 (35-45) mm/Hg pO2 (80-100) mm/Hg HCO3 (21-28) mmol/L ABG pH (7.35-7.45) ABG Total CO2 (22-28) mmol.L ABG O2 Saturation (95-98) % ABG Base Excess (-2.0-3.0) mmol/L ABG Potassium (3.6-5.2) mmol/L Sodium (132-148) mmol/L Chloride (98-107) mmol/L Glucose (75-110) mg/dl Lactate (0.7-2.1) mmol/L FiO2 % Potassium (3.6-5.0) mmol/L Carbon Dioxide (21-33) mmol/L Anion Gap (10-20) BUN (7-21) mg/dL Creatinine (0.8-1.5) mg/dl Est GFR ( Amer) Est GFR (Non-Af Amer) POC Glucose (mg/dL) (65-110) mg/dL Random Glucose (70-110) mg/dL Calcium (8.4-10.5) mg/dL Ionized Calcium 3.6 L (4.80-5.60) mg/dL Phosphorus (2.5-4.5) mg/dL Magnesium (1.7-2.2) mg/dL Total Bilirubin (0.2-1.3) mg/dL AST (17-59) U/L ALT (7-56) U/L Alkaline Phosphatase (38-126) U/L Total Protein (5.8-8.3) g/dL Albumin (3.0-4.8) g/dL Globulin gm/dL Albumin/Globulin Ratio (1.1-1.8) Arterial Blood Potassium (3.6-5.2) mmol/L Laboratory Results - last 24 hr 02/05/18 02/05/18 02/06/18 01:20 06:00 18:23 WBC RBC Hgb Hct MCV MCH MCHC RDW Plt Count MPV Gran % Lymph % (Auto) [place] % (Auto) Eos % (Auto) Baso % (Auto) Gran # Lymph # (Auto) [place] # (Auto) Eos # (Auto) Baso # (Auto) APTT pCO2 pO2 HCO3 ABG pH ABG Total CO2 ABG O2 Saturation ABG Base Excess ABG Potassium Sodium Chloride Glucose Lactate FiO2 Potassium Carbon Dioxide Anion Gap BUN Creatinine Est GFR ( Amer) Est GFR (Non-Af Amer) POC Glucose (mg/dL) 136 H Random Glucose Calcium Ionized Calcium 3.6 L 3.4 L Phosphorus Magnesium Total Bilirubin AST ALT Alkaline Phosphatase Total Protein Albumin Globulin Albumin/Globulin Ratio Arterial Blood Potassium 02/07/18 02/07/18 02/07/18 00:27 06:00 06:00 WBC 11.2 H D RBC 3.71 Hgb 10.9 L D Hct 31.6 L MCV 85.2 MCH 29.4 MCHC 34.5 RDW 14.3 Plt Count 114 L MPV 10.4 Gran % 77.8 H Lymph % (Auto) 14.9 L [place] % (Auto) 6.5 H Eos % (Auto) 0.7 L Baso % (Auto) 0.1 Gran # 8.74 H Lymph # (Auto) 1.7 [place] # (Auto) 0.7 H Eos # (Auto) 0.1 Baso # (Auto) 0.01 APTT pCO2 pO2 HCO3 ABG pH ABG Total CO2 ABG O2 Saturation ABG Base Excess ABG Potassium Sodium 141 Chloride 109 H Glucose Lactate FiO2 Potassium 4.3 Carbon Dioxide 25 Anion Gap 12 BUN 30 H Creatinine 1.1 Est GFR ( Amer) > 60 Est GFR (Non-Af Amer) > 60 POC Glucose (mg/dL) 158 H Random Glucose 164 H Calcium 7.9 L Ionized Calcium Phosphorus 1.2 L* Magnesium 2.2 Total Bilirubin 0.8 AST 43 ALT 66 H Alkaline Phosphatase 42 Total Protein 5.2 L Albumin 2.6 L Globulin 2.6 Albumin/Globulin Ratio 1.0 L Arterial Blood Potassium 02/07/18 02/07/18 02/07/18 06:00 06:00 06:07 WBC RBC Hgb Hct MCV MCH MCHC RDW Plt Count MPV Gran % Lymph % (Auto) [place] % (Auto) Eos % (Auto) Baso % (Auto) Gran # Lymph # (Auto) [place] # (Auto) Eos # (Auto) Baso # (Auto) APTT 40.6 H pCO2 22 L pO2 201.0 H HCO3 15.6 L ABG pH 7.46 H ABG Total CO2 16.3 L ABG O2 Saturation 99.3 H ABG Base Excess -6.1 L ABG Potassium 2.4 L* Sodium 149.0 H Chloride 124.0 H Glucose 100 Lactate 0.8 FiO2 40.0 Potassium Carbon Dioxide Anion Gap BUN Creatinine Est GFR ( Amer) Est GFR (Non-Af Amer) POC Glucose (mg/dL) 157 H Random Glucose Calcium Ionized Calcium Phosphorus Magnesium Total Bilirubin AST ALT Alkaline Phosphatase Total Protein Albumin Globulin Albumin/Globulin Ratio Arterial Blood Potassium 2.4 L* 02/07/18 12:15 WBC RBC Hgb Hct MCV MCH MCHC RDW Plt Count MPV Gran % Lymph % (Auto) [place] % (Auto) Eos % (Auto) Baso % (Auto) Gran # Lymph # (Auto) [place] # (Auto) Eos # (Auto) Baso # (Auto) APTT pCO2 pO2 HCO3 ABG pH ABG Total CO2 ABG O2 Saturation ABG Base Excess ABG Potassium Sodium Chloride Glucose Lactate FiO2 Potassium Carbon Dioxide Anion Gap BUN Creatinine Est GFR ( Amer) Est GFR (Non-Af Amer) POC Glucose (mg/dL) 151 H Random Glucose Calcium Ionized Calcium Phosphorus Magnesium Total Bilirubin AST ALT Alkaline Phosphatase Total Protein Albumin Globulin Albumin/Globulin Ratio Arterial Blood Potassium Assessment/Plan - Assessment and Plan (Free Text) Plan: Patient seen and examined on rounds with resident, agree with note with following additions/exceptions: Patient is 57yomale with PMHx of CAD s/p CABG with 4 stents, HTN, hypothyroidism , s/p Vfib arrest in the field, s/p hypothermic protocol, s/p rewarming. Pt currently Afebrile, HD stable, comfortable in NAD, on Milrinone drip. Cannot fully asses neurological exam, as patient is sedated, does overbreath the ventilator. EEG done on admission, repeat pending CTH done on admission, c/w anoxic brain injury, repeat CTH tomorrow Neurology following. CXR noted with bilateral pulm vasc congestion, on abx, and Lasix IV diuresis Patient with poor compliance as outpatient as per the family, did not follow up with acetylene burner after CABG CAD s/p CABG s/p stent HTN Hypothyroid s/p Vfib cardiac arrest CHF acute decompensated systolic rule out PNA Recommend: - cont with vent support, low tidal vol ventilation, daily sedation vacation CPAP trials as tolerated, ABG acceptable - Duonebs PRN - Cont with broad spectrum abx, as per ID - follow up cultures, Procal - maintain MAP >65 - ASA - Milrinone drip - follow up cardiology - ECHO - Lasix IV diuresis - monitor HH - monitor LFTs - follow up renal - EEG, repeat tomorrow - CTH repeat tomorrow - follow up neurology - Heparin drip - GI ppx - DVT ppx - Monitor in MICU overall prognosis poor critical care time 35 minutes
[2018-02-07 07:06] LABS: ALBUMIN 2.6 g/dL (3.0-4.8); ALT/SGPT 66 U/L (7-56); AST/SGOT 43 U/L (17-59); BLOOD UREA NITROGEN 30 mg/dL (7-21); CALCIUM 7.9 mg/dL (8.4-10.5); GFR AFRICAN-AMERICAN > 60; GFR NON-AFRICAN AMERICAN > 60
[2018-02-07] MEDS: Albuterol-Ipratrop 3 mg / 0.5 (3 ml) UD IH PRN ×2 (07:07→13:13)
--- NOTE | 2018-02-07 07:34 | CP.PCM.PN ---
Subjective - Date & Time of Evaluation Date of Evaluation: 02/07/18 Time of Evaluation: 07:00 - Subjective Subjective: Stable in CCU. I spoke with his bedside nurse. No change in neuro status V/S noted. RSR PE: lungs: few rhonchi Cor.: S1S2 Abd.: soft Ext. mild edema Neuro.: sedated. I/O= 2593/500 recorded Labs and ABGs noted: PL Ct [id number], BMP OK, Mg++= 2.3. Phos low. BCs all NG so far ECG: S. tachy., STTW changes CXR: not read yet. Improved by my reading Objective - Vital Signs/Intake and Output Vital Signs (last 24 hours): Temp Pulse Resp BP Pulse Ox 97.8 F 94 H 30 H 103/62 100 02/07/18 00:00 02/07/18 04:50 02/06/18 10:00 02/07/18 04:30 02/07/18 04:50 Intake and Output: 02/07/18 02/07/18 06:59 18:59 Intake Total 565 Balance 565 - Medications Medications: Current Medications Albuterol/Ipratropium (Duoneb 3 Mg/0.5 Mg (3 Ml) Ud) 3 ml IH [id number] PRN PRN Reason: Shortness of Breath Last Admin: 02/07/18 07:07 Dose: 3 ml Artificial Tears (Artificial Tears) 0 ml OU Q8 PRN PRN Reason: Dry eyes Last Admin: 02/06/18 17:19 Dose: 2 drop Aspirin (Aspirin Chewable) 81 mg PO DAILY [facility] Atorvastatin Calcium (Lipitor) 40 mg PO DIN [facility] Last Admin: 02/05/18 17:12 Dose: Not Given Hydrocortisone Sodium Succinate (Solu-Cortef) 50 mg IVP Q8 DAMON Last Admin: 02/07/18 05:05 Dose: 50 mg Propofol (Diprivan) 1,000 mg in 100 mls @ 3.538 mls/hr IV .Q24H PRN; Protocol; 5 MCG/KG/MIN PRN Reason: TITRATE PER MD ORDER Last Titration: 02/07/18 01:45 Dose: 35 mcg/kg/min, 24.766 mls/hr Cefepime HCl (Maxipime 2gm) 2 gm in 100 mls @ 100 mls/hr IVPB Q12 DAMON PRN Reason: Protocol Stop: 02/09/18 10:01 Last Admin: 02/06/18 22:20 Dose: 100 mls/hr Pantoprazole Sodium (Protonix 40mg Ivpb) 40 mg in 100 mls @ 20 mls/hr IVPB .Q5H DAMON Last Admin: 02/07/18 04:04 Dose: 20 mls/hr Milrinone Lactate/Dextrose (Primacor 20mg/100ml D5w) 100 mls @ 13.268 mls/hr IV .Q7H33M PRN; Protocol; 0.375 MCG/KG/MIN PRN Reason: TITRATE PER MD ORDER Last Admin: 02/07/18 00:29 Dose: 0.375 mcg/kg/min, 13.268 mls/hr Cisatracurium Besylate 200 mg/ (Sodium Chloride) 270 mls @ 9.55 mls/hr IV .Q24H PRN; Protocol; 1 MCG/KG/MIN PRN Reason: TITRATE PER MD ORDER Last Titration: 02/06/18 06:00 Dose: 0 mcg/kg/min, 0 mls/hr Heparin Sodium/Sodium Chloride (Heparin 85287 Units/250ml 1/2 Normal Saline) 25 ,000 units in 250 mls @ 14.152 mls/hr IV .[id number] DAMON; 12 UNITS/KG/HR PRN Reason: Protocol Last Admin: 02/06/18 18:34 Dose: 6 units/kg/hr, 7.076 mls/hr Levetiracetam 750 mg/ Sodium (Chloride) 107.5 mls @ 430 mls/hr IV Q12 DAMON Last Admin: 02/06/18 21:50 Dose: 430 mls/hr NOREPINEPHRINE BIT/0.9 % NACL (Levophed 4 Mg/ 250 Ml Ns Premixed) 4 mg in 250 mls @ 15 mls/hr IV .[id number] PRN; Protocol; 4 MCG/MIN PRN Reason: TITRATE PER MD ORDER Last Titration: 02/04/18 18:00 Dose: 0 mcg/min, 0 mls/hr Midazolam 100 mg/100ml in NS (Midazolam 100 Mg/100ml In Ns) 100 mg in 100 mls @ 1 mls/hr IV .Q24H PRN; Protocol; 1 MG/HR PRN Reason: Sedation Last Titration: 02/07/18 02:00 Dose: 6 mg/hr, 6 mls/hr Fentanyl Citrate (Fentanyl Citrate/Sodium Chloride 1 Mg/100 Ml) 1,000 mcg in 100 mls @ 2 mls/hr IV .Q24H PRN; Protocol; 20 MCG/HR PRN Reason: TITRATE PER MD ORDER Last Admin: 02/07/18 01:56 Dose: 80 mcg/hr, 8 mls/hr Insulin Human Regular (Humulin R Med) 0 units SC Q6 DAMON PRN Reason: Protocol Last Admin: 02/07/18 00:40 Dose: Not Given Lorazepam (Ativan) 1 mg IVP Q6H PRN; Protocol PRN Reason: Seizure activity Last Admin: 02/06/18 14:28 Dose: 1 mg - Labs Labs: 02/07/18 06:00 02/07/18 06:00 PT 14.4 SECONDS (9.4-12.5) H 02/05/18 22:05 INR 1.26 (0.93-1.08) H 02/05/18 22:05 APTT 52.4 Seconds (25.1-36.5) H 02/06/18 05:00 Assessment and Plan - Assessment and Plan (Free Text) Assessment: Cardiac arrest at home Acute [place]/CHF/S/P resuscitation in the field Anoxic encephalopathy CAD/[place]/Remote CABG/No regular cardiac f/u HBP Hypothyroidism Smoker Plan: IV Lasix As per Neuro., GI, Renal, Intensivists Monitor: labs, trops, I/O, sats., ABGs, CXRs, PTTs, neuro status, etc Will follow.
--- NOTE | 2018-02-07 08:37 | RAD ---
HISTORY: intubated COMPARISON: 02/06/2018 FINDINGS: LUNGS: New minimal bibasilar infiltrates. Central lines and tubes unchanged PLEURA: No significant pleural effusion identified, no pneumothorax apparent. CARDIOVASCULAR: Normal. OSSEOUS STRUCTURES: No significant abnormalities. VISUALIZED UPPER ABDOMEN: Normal. OTHER FINDINGS: None. IMPRESSION: New minimal bibasilar infiltrates. Central lines and tubes unchanged
[2018-02-07] MEDS: Aritificial Tears (15ml) OU PRN (08:40)
[2018-02-07] MEDS: Cefepime IV 2 gm in NS 2 GM/100 ML BAG IVPB SCH ×2 (10:20→22:43)
[2018-02-07] MEDS: Midazolam 100 mg/100ml in NS 100 MG/100 ML SOL IV PRN (10:21)
--- NOTE | 2018-02-07 10:33 | CARD ---
APPROVED REPORT EKG Measurement Heart [id number] WI [id number] <Conclusion> Sinus tachycardia with frequent premature ventricular complexes and one triplet. Possible Inferior infarct, age undetermined T wave abnormality, consider lateral ischemia
--- NOTE | 2018-02-07 12:33 | CP.PCM.PN ---
Subjective - Date & Time of Evaluation Date of Evaluation: 02/07/18 Time of Evaluation: 09:25 - Subjective Subjective: Continues to be intubated and sedated, no fevers. Objective - Vital Signs/Intake and Output Vital Signs (last 24 hours): Temp Pulse Resp BP Pulse Ox 97.8 F 94 H 30 H 103/62 100 02/07/18 00:00 02/07/18 04:50 02/06/18 10:00 02/07/18 04:30 02/07/18 04:50 Intake and Output: 02/07/18 02/07/18 06:59 18:59 Intake Total 565 Balance 565 - Medications Medications: Current Medications Albuterol/Ipratropium (Duoneb 3 Mg/0.5 Mg (3 Ml) Ud) 3 ml IH [id number] PRN PRN Reason: Shortness of Breath Last Admin: 02/07/18 07:07 Dose: 3 ml Artificial Tears (Artificial Tears) 0 ml OU Q8 PRN PRN Reason: Dry eyes Last Admin: 02/06/18 17:19 Dose: 2 drop Aspirin (Aspirin Chewable) 81 mg PO DAILY [facility] Atorvastatin Calcium (Lipitor) 40 mg PO DIN [facility] Last Admin: 02/05/18 17:12 Dose: Not Given Hydrocortisone Sodium Succinate (Solu-Cortef) 50 mg IVP Q8 [facility] Last Admin: 02/07/18 05:05 Dose: 50 mg Propofol (Diprivan) 1,000 mg in 100 mls @ 3.538 mls/hr IV .Q24H PRN; Protocol; 5 MCG/KG/MIN PRN Reason: TITRATE PER MD ORDER Last Titration: 02/07/18 01:45 Dose: 35 mcg/kg/min, 24.766 mls/hr Cefepime HCl (Maxipime 2gm) 2 gm in 100 mls @ 100 mls/hr IVPB Q12 DAMON PRN Reason: Protocol Stop: 02/09/18 10:01 Last Admin: 02/06/18 22:20 Dose: 100 mls/hr Pantoprazole Sodium (Protonix 40mg Ivpb) 40 mg in 100 mls @ 20 mls/hr IVPB .Q5H DAMON Last Admin: 02/07/18 04:04 Dose: 20 mls/hr Milrinone Lactate/Dextrose (Primacor 20mg/100ml D5w) 100 mls @ 13.268 mls/hr IV .Q7H33M PRN; Protocol; 0.375 MCG/KG/MIN PRN Reason: TITRATE PER MD ORDER Last Admin: 02/07/18 00:29 Dose: 0.375 mcg/kg/min, 13.268 mls/hr Cisatracurium Besylate 200 mg/ (Sodium Chloride) 270 mls @ 9.55 mls/hr IV .Q24H PRN; Protocol; 1 MCG/KG/MIN PRN Reason: TITRATE PER MD ORDER Last Titration: 02/06/18 06:00 Dose: 0 mcg/kg/min, 0 mls/hr Heparin Sodium/Sodium Chloride (Heparin 59292 Units/250ml 1/2 Normal Saline) 25 ,000 units in 250 mls @ 14.152 mls/hr IV .[id number] DAMON; 12 UNITS/KG/HR PRN Reason: Protocol Last Admin: 02/06/18 18:34 Dose: 6 units/kg/hr, 7.076 mls/hr Levetiracetam 750 mg/ Sodium (Chloride) 107.5 mls @ 430 mls/hr IV Q12 DAMON Last Admin: 02/06/18 21:50 Dose: 430 mls/hr NOREPINEPHRINE BIT/0.9 % NACL (Levophed 4 Mg/ 250 Ml Ns Premixed) 4 mg in 250 mls @ 15 mls/hr IV .[id number] PRN; Protocol; 4 MCG/MIN PRN Reason: TITRATE PER MD ORDER Last Titration: 02/04/18 18:00 Dose: 0 mcg/min, 0 mls/hr Midazolam 100 mg/100ml in NS (Midazolam 100 Mg/100ml In Ns) 100 mg in 100 mls @ 1 mls/hr IV .Q24H PRN; Protocol; 1 MG/HR PRN Reason: Sedation Last Titration: 02/07/18 02:00 Dose: 6 mg/hr, 6 mls/hr Fentanyl Citrate (Fentanyl Citrate/Sodium Chloride 1 Mg/100 Ml) 1,000 mcg in 100 mls @ 2 mls/hr IV .Q24H PRN; Protocol; 20 MCG/HR PRN Reason: TITRATE PER MD ORDER Last Admin: 02/07/18 01:56 Dose: 80 mcg/hr, 8 mls/hr Insulin Human Regular (Humulin R Med) 0 units SC Q6 DAMON PRN Reason: Protocol Last Admin: 02/07/18 00:40 Dose: Not Given Lorazepam (Ativan) 1 mg IVP Q6H PRN; Protocol PRN Reason: Seizure activity Last Admin: 02/06/18 14:28 Dose: 1 mg - Labs Labs: 02/07/18 06:00 02/07/18 06:00 PT 14.4 SECONDS (9.4-12.5) H 02/05/18 22:05 INR 1.26 (0.93-1.08) H 02/05/18 22:05 APTT 52.4 Seconds (25.1-36.5) H 02/06/18 05:00 - Constitutional Appears: Other (intubated and sedated) - Head Exam Head Exam: NORMAL INSPECTION - ENT Exam Additional comments: ET tube in place - Respiratory Exam Respiratory Exam: Decreased Breath Sounds - Cardiovascular Exam Cardiovascular Exam: +S1, +S2 - GI/Abdominal Exam GI & Abdominal Exam: Soft. absent: Tenderness Assessment and Plan - Assessment and Plan (Free Text) Plan: Assessment Systemic Inflammatory response syndrome, consider due to cardiac arrest etiology to be determined, R/O sepsis from aspiration pneumonitis CAD S/P CABG HTN thyroid disease significant smoking history Plan gave the patient a dose of IV Vancomycin and continue Cefepime day 4 - will add Doxycycline as well; blood, urine cx are negative PCT is elevated but patient may have acute ME; reviewed CXR which is showing pulmonary edema but cannot rule out pneumonia; reviewed CT head showing possible hypoxic brain injury - follow up further Neurology recommendations follow up further Cardiology recommendations overall prognosis is poor will continue to monitor clinically discussed with ICU team today
[2018-02-07] MEDS ORDERED: Sodium Phosphate 30 MMOLE in Dextrose 5% In Water 250 ML IVPB ONE (12:34)
--- NOTE | 2018-02-07 14:27 | CP.PCM.PN ---
<Alexander Trujillo - Last Filed: 02/07/18 14:24> Subjective - Date & Time of Evaluation Date of Evaluation: 02/07/18 Time of Evaluation: 14:24 - Subjective Subjective: Patient seen and evaluated this AM. Patient was placed on sedation vacation in past 24 hours with apparent seizure like activity Patient continues to be sedated and on pressors. ROS unable to be obtained due to sedation. Objective - Vital Signs/Intake and Output Vital Signs (last 24 hours): Temp Pulse Resp BP Pulse Ox 96.3 F L 67 24 103/46 L 100 02/07/18 12:50 02/07/18 12:50 02/07/18 10:00 02/07/18 12:30 02/07/18 12:50 Intake and Output: 02/07/18 02/07/18 06:59 18:59 Intake Total 1568 651 Output Total 350 Balance 1218 651 - Medications Medications: Current Medications Albuterol/Ipratropium (Duoneb 3 Mg/0.5 Mg (3 Ml) Ud) 3 ml IH [id number] PRN PRN Reason: Shortness of Breath Last Admin: 02/07/18 13:13 Dose: 3 ml Artificial Tears (Artificial Tears) 0 ml OU Q8 PRN PRN Reason: Dry eyes Last Admin: 02/07/18 08:40 Dose: 2 drop Aspirin (Aspirin Chewable) 81 mg PO DAILY [facility] Last Admin: 02/07/18 10:18 Dose: 81 mg Atorvastatin Calcium (Lipitor) 40 mg PO DIN [facility] Last Admin: 02/05/18 17:12 Dose: Not Given Hydrocortisone Sodium Succinate (Solu-Cortef) 50 mg IVP Q8 [facility] Last Admin: 02/07/18 13:45 Dose: 50 mg Propofol (Diprivan) 1,000 mg in 100 mls @ 3.538 mls/hr IV .Q24H PRN; Protocol; 5 MCG/KG/MIN PRN Reason: TITRATE PER MD ORDER Last Titration: 02/07/18 12:30 Dose: 20 mcg/kg/min, 14.152 mls/hr Cefepime HCl (Maxipime 2gm) 2 gm in 100 mls @ 100 mls/hr IVPB Q12 DAMON PRN Reason: Protocol Stop: 02/09/18 10:01 Last Admin: 02/07/18 10:20 Dose: 100 mls/hr Pantoprazole Sodium (Protonix 40mg Ivpb) 40 mg in 100 mls @ 20 mls/hr IVPB .Q5H DAMON Last Admin: 02/07/18 09:47 Dose: 20 mls/hr Milrinone Lactate/Dextrose (Primacor 20mg/100ml D5w) 100 mls @ 13.268 mls/hr IV .Q7H33M PRN; Protocol; 0.375 MCG/KG/MIN PRN Reason: TITRATE PER MD ORDER Last Admin: 02/07/18 08:37 Dose: 0.375 mcg/kg/min, 13.268 mls/hr Cisatracurium Besylate 200 mg/ (Sodium Chloride) 270 mls @ 9.55 mls/hr IV .Q24H PRN; Protocol; 1 MCG/KG/MIN PRN Reason: TITRATE PER MD ORDER Last Titration: 02/06/18 06:00 Dose: 0 mcg/kg/min, 0 mls/hr Heparin Sodium/Sodium Chloride (Heparin 15756 Units/250ml 1/2 Normal Saline) 25 ,000 units in 250 mls @ 14.152 mls/hr IV .[id number] DAMON; 12 UNITS/KG/HR PRN Reason: Protocol Last Titration: 02/07/18 08:26 Dose: 8 units/kg/hr, 9.435 mls/hr NOREPINEPHRINE BIT/0.9 % NACL (Levophed 4 Mg/ 250 Ml Ns Premixed) 4 mg in 250 mls @ 15 mls/hr IV .[id number] PRN; Protocol; 4 MCG/MIN PRN Reason: TITRATE PER MD ORDER Last Titration: 02/04/18 18:00 Dose: 0 mcg/min, 0 mls/hr Midazolam 100 mg/100ml in NS (Midazolam 100 Mg/100ml In Ns) 100 mg in 100 mls @ 1 mls/hr IV .Q24H PRN; Protocol; 1 MG/HR PRN Reason: Sedation Last Titration: 02/07/18 11:30 Dose: 5 mg/hr, 5 mls/hr Fentanyl Citrate (Fentanyl Citrate/Sodium Chloride 1 Mg/100 Ml) 1,000 mcg in 100 mls @ 2 mls/hr IV .Q24H PRN; Protocol; 20 MCG/HR PRN Reason: TITRATE PER MD ORDER Last Admin: 02/07/18 14:21 Dose: 60 mcg/hr, 6 mls/hr Doxycycline Hyclate 100 mg/ (Sodium Chloride) 100 mls @ 100 mls/hr IVPB Q12 DAMON PRN Reason: Protocol Sodium Phosphate 30 mmole/ (Dextrose) 260 mls @ 42.5 mls/hr IVPB ONCE ONE Stop: 02/07/18 18:41 Last Admin: 02/07/18 13:00 Dose: 42.5 mls/hr Levetiracetam 1,000 mg/ Sodium (Chloride) 110 mls @ 430 mls/hr IV Q12 DAMON Insulin Human Regular (Humulin R Med) 0 units SC Q6 DAMON PRN Reason: Protocol Last Admin: 02/07/18 12:20 Dose: Not Given Lorazepam (Ativan) 1 mg IVP Q6H PRN; Protocol PRN Reason: Seizure activity Last Admin: 02/06/18 14:28 Dose: 1 mg - Labs Labs: 02/07/18 06:00 02/07/18 06:00 PT 14.4 SECONDS (9.4-12.5) H 02/05/18 22:05 INR 1.26 (0.93-1.08) H 02/05/18 22:05 APTT 40.6 Seconds (25.1-36.5) H 02/07/18 06:00 - Constitutional Appears: No Acute Distress - Head Exam Head Exam: ATRAUMATIC, NORMAL INSPECTION, NORMOCEPHALIC - Eye Exam Pupil Exam: Fixed, Miosis. absent: NORMAL ACCOMODATION - Respiratory Exam Respiratory Exam: Clear to Ausculation Bilateral, NORMAL BREATHING PATTERN. absent: Rhonchi, Wheezes - Cardiovascular Exam Cardiovascular Exam: REGULAR RHYTHM, +S1, +S2. absent: Murmur - GI/Abdominal Exam GI & Abdominal Exam: Soft. absent: Firm, Guarding, Rigid - Extremities Exam Extremities Exam: absent: Pedal Edema Additional comments: Negative for cyanosis and edema - Neurological Exam Additional comments: Sedated, responsive to painful stimuli Pupils pinpoint and non reactive Absent gag reflex GCS3 Periodic over breathing the ventilator - Psychiatric Exam Additional comments: Sedated and intubated - Skin Skin Exam: Dry, Warm Assessment and Plan - Assessment and Plan (Free Text) Assessment: 57 year old male with history of CAD s/p CABG and 4 stents, hypertension, thyroid disease, and tobacco abuse presenting s/p cardiac arrest secondary to a cardiac event (possible posterior wall infarct) presenting with cardiogenic shock and anoxic encephalopathy Plan: Cardiac Arrest - Etiology suspected to be 2/2 ventricular fibrillation - EKG reveals ST-T segments findings consistent with ischemia, possible inferior wall HI, intraventricular conduction delay evidenced by EKG and cardiac enzyme elevation - Echocardiogram reveals EF 20-25% with septum and apex severly hypokinetic. Left ventricular systolic function severely impaired - Continue with Milrinone - PTT elevated;hold heparin and repeat PTT, then titrate heparin drip - Heparin gtt, Milrinone gtt 2/2 EF of 20s Tachycardia - NSR - Cardiology consulted and following - Per ICU, considering holding Amio 2/2 LFT Metabolic and respiratory Acidosis - pH stabilized - Ventilation set with elevated RR - Bicarb gtt on hold for now - Continue to monitor Hypercapnic respiratory failure - Patient intubated and sedated with ventilation on PRVC. - Continue with management of vent settings per ID - Continue with xopenex treatments - PRVC, ICU managing Anoxic encephalopathy secondary to cardiac arrest - Code freeze protocol completed - Neurology consulted and following, recs as followed - recommending normothermic, normotensive, head elevated at least 30 degrees - Repeat EEG - CT head reveals findings concerning for global hypoxic ischemic injury. - Initial EEG reveals very low amplitude rhythm with no normal posterior dominant rhythm. No interictal epileptiform discharges. No seuzire. EEG is abnormal. - Currently sedated, seizure precaution - Keppra increased 1 gram BID Leukocytosis - ID consulted and following - Continue with broad spectrum antibiotics - Follow up with blood cultures: no growth after 48 hours - Urine culture final resulted in no growth Possible Lower GI bleed - Drop in H/H with evidence of Hemaemesis - Possibly due to traumatic insertion - OG tube on intermittent suction - GI on consult; f/u with recommendations Acute Kidney Injury - Nonoliguric renal failure, consistent with ATN - avoid nephrotoxic agents, no n eed for dose reduction of abx per nephro - Hematuria likely secondary to heparin gtt GI/DVT ppx - Protonix gtt - Heparin gtt Case and Plan discussed with attending <Hank Ramírez - Last Filed: 02/07/18 15:16> Objective - Vital Signs/Intake and Output Vital Signs (last 24 hours): Temp Pulse Resp BP Pulse Ox 96.3 F L 73 24 109/55 L 97 02/07/18 13:50 02/07/18 14:20 02/07/18 10:00 02/07/18 14:00 02/07/18 14:20 Intake and Output: 02/07/18 02/07/18 06:59 18:59 Intake Total 1568 651 Output Total 350 Balance 1218 651 - Medications Medications: Current Medications Albuterol/Ipratropium (Duoneb 3 Mg/0.5 Mg (3 Ml) Ud) 3 ml IH [id number] PRN PRN Reason: Shortness of Breath Last Admin: 02/07/18 13:13 Dose: 3 ml Artificial Tears (Artificial Tears) 0 ml OU Q8 PRN PRN Reason: Dry eyes Last Admin: 02/07/18 08:40 Dose: 2 drop Aspirin (Aspirin Chewable) 81 mg PO DAILY [facility] Last Admin: 02/07/18 10:18 Dose: 81 mg Atorvastatin Calcium (Lipitor) 40 mg PO DIN [facility] Last Admin: 02/05/18 17:12 Dose: Not Given Hydrocortisone Sodium Succinate (Solu-Cortef) 50 mg IVP Q8 DAMON Last Admin: 02/07/18 13:45 Dose: 50 mg Propofol (Diprivan) 1,000 mg in 100 mls @ 3.538 mls/hr IV .Q24H PRN; Protocol; 5 MCG/KG/MIN PRN Reason: TITRATE PER MD ORDER Last Titration: 02/07/18 12:30 Dose: 20 mcg/kg/min, 14.152 mls/hr Cefepime HCl (Maxipime 2gm) 2 gm in 100 mls @ 100 mls/hr IVPB Q12 DAMON PRN Reason: Protocol Stop: 02/09/18 10:01 Last Admin: 02/07/18 10:20 Dose: 100 mls/hr Pantoprazole Sodium (Protonix 40mg Ivpb) 40 mg in 100 mls @ 20 mls/hr IVPB .Q5H DAMON Last Admin: 02/07/18 14:43 Dose: 20 mls/hr Milrinone Lactate/Dextrose (Primacor 20mg/100ml D5w) 100 mls @ 13.268 mls/hr IV .Q7H33M PRN; Protocol; 0.375 MCG/KG/MIN PRN Reason: TITRATE PER MD ORDER Last Admin: 02/07/18 08:37 Dose: 0.375 mcg/kg/min, 13.268 mls/hr Cisatracurium Besylate 200 mg/ (Sodium Chloride) 270 mls @ 9.55 mls/hr IV .Q24H PRN; Protocol; 1 MCG/KG/MIN PRN Reason: TITRATE PER MD ORDER Last Titration: 02/06/18 06:00 Dose: 0 mcg/kg/min, 0 mls/hr Heparin Sodium/Sodium Chloride (Heparin 58915 Units/250ml 1/2 Normal Saline) 25 ,000 units in 250 mls @ 14.152 mls/hr IV .[id number] DAMON; 12 UNITS/KG/HR PRN Reason: Protocol Last Titration: 02/07/18 08:26 Dose: 8 units/kg/hr, 9.435 mls/hr NOREPINEPHRINE BIT/0.9 % NACL (Levophed 4 Mg/ 250 Ml Ns Premixed) 4 mg in 250 mls @ 15 mls/hr IV .[id number] PRN; Protocol; 4 MCG/MIN PRN Reason: TITRATE PER MD ORDER Last Titration: 02/04/18 18:00 Dose: 0 mcg/min, 0 mls/hr Midazolam 100 mg/100ml in NS (Midazolam 100 Mg/100ml In Ns) 100 mg in 100 mls @ 1 mls/hr IV .Q24H PRN; Protocol; 1 MG/HR PRN Reason: Sedation Last Titration: 02/07/18 11:30 Dose: 5 mg/hr, 5 mls/hr Fentanyl Citrate (Fentanyl Citrate/Sodium Chloride 1 Mg/100 Ml) 1,000 mcg in 100 mls @ 2 mls/hr IV .Q24H PRN; Protocol; 20 MCG/HR PRN Reason: TITRATE PER MD ORDER Last Admin: 02/07/18 14:21 Dose: 60 mcg/hr, 6 mls/hr Doxycycline Hyclate 100 mg/ (Sodium Chloride) 100 mls @ 100 mls/hr IVPB Q12 DAMON PRN Reason: Protocol Sodium Phosphate 30 mmole/ (Dextrose) 260 mls @ 42.5 mls/hr IVPB ONCE ONE Stop: 02/07/18 18:41 Last Admin: 02/07/18 13:00 Dose: 42.5 mls/hr Levetiracetam 1,000 mg/ Sodium (Chloride) 110 mls @ 430 mls/hr IV Q12 DAMON Insulin Human Regular (Humulin R Med) 0 units SC Q6 DAMON PRN Reason: Protocol Last Admin: 02/07/18 12:20 Dose: Not Given Lorazepam (Ativan) 1 mg IVP Q6H PRN; Protocol PRN Reason: Seizure activity Last Admin: 02/06/18 14:28 Dose: 1 mg - Labs Labs: 02/07/18 06:00 02/07/18 06:00 PT 14.4 SECONDS (9.4-12.5) H 02/05/18 22:05 INR 1.26 (0.93-1.08) H 02/05/18 22:05 APTT 40.6 Seconds (25.1-36.5) H 02/07/18 06:00 Attending/Attestation - Attestation I have personally seen and examined this patient.: Yes I have fully participated in the care of the patient.: Yes I have reviewed all pertinent clinical information, including history, physical exam and plan: Yes Notes (Text): 02/07/18 15:13 Medical record note made by the resident after discussion with my direction and input after the patient was personally seen and examined by me. I have reviewed the chart and agree that the record accurately reflects by personal performance of the history, physical exam, data review, and medical decision-making, in the course for the patient. I have also personally directed the plan of care. 57 yrs old male with PMHx of CAD , SP CABG , HTN, hypothyroidism, s/p Vfib arrest in the field,coded for about 10 mins and [address]. [address] head showed global anoxic injury. Patient is s/p hypothermic protocol, s/p rewarming. Echo showed EF 25% on Milrinone drip.Patient blood pressure is stable, now off pressor. Patient is afebrile, on IV antibiotics as per ID.Cultures are negative Mental status cannot fully asses as patient is sedated,likely has anoxic encephlopathy. Initial EEG reveals very low amplitude rhythm with no normal posterior dominant rhythm. No interictal epileptiform discharges. EEG is abnormal. , repeat EEG is pending Hypophosphatemia, getting replacement, will follow up repeat LABS. Prognosis is guarded Management plan was discussed with family who was at bed side
[2018-02-07] MEDS: levETIRAcetam 1,000 MG in Sodium Chloride 0.9% 100 ML IV SCH (22:03)
[2018-02-07] MEDS: Heparin25000 units/250ml 1/2NS 25,000 UNITS/250 ML BAG IV SCH (23:26)
[2018-02-07 23:56] LABS: ALBUMIN 2.6 g/dL (3.0-4.8); ALT/SGPT 57 U/L (7-56); AST/SGOT 38 U/L (17-59); BLOOD UREA NITROGEN 28 mg/dL (7-21); CALCIUM 7.5 mg/dL (8.4-10.5); GFR AFRICAN-AMERICAN > 60; GFR NON-AFRICAN AMERICAN > 60
[2018-02-08] MEDS: Milrinone 20mg/100ml D5W 100 ML IV PRN ×2 (01:35→12:04)
[2018-02-08] MEDS: Pantoprazole 40mg/100mL NS 40 MG/100 ML BAG IVPB SCH ×2 (03:00→07:47)
[2018-02-08 05:49] LABS: ARTERIAL BLOOD GAS HCO3 26.6 mmol/L (21-28); ARTERIAL BLOOD GAS O2 SAT 97.1 % (95-98); ARTERIAL BLOOD GAS PCO2 41 mm/Hg (35-45); ARTERIAL BLOOD GAS PH 7.42 (7.35-7.45); ARTERIAL BLOOD GAS TCO2 27.9 mmol.L (22-28)
[2018-02-08 05:55] LABS: BASO # 0.01 K/mm3 (0.0-2.0); BASO % 0.1 % (0.0-3.0); EOS # 0.1 (0.0-0.7); EOS % 0.8 % (1.5-5.0); GRAN # 7.81 (1.4-6.5); GRAN % 68.3 % (50.0-68.0); HEMOGLOBIN 10.1 g/dL (14.0-18.0); LYMPH # 2.6 (1.2-3.4); LYMPH % 22.6 % (22.0-35.0); MEAN CELL VOLUME 86.9 fl (80.0-105.0); MEAN CORPUSCULAR HEMOGLOBIN 29.4 pg (25.0-35.0); MEAN CORPUSCULAR HGB CONC 33.8 g/dl (31.0-37.0); MEAN PLATELET VOLUME 10.8 fl (7.0-11.0); MONO # 0.9 (0.1-0.6); MONO % 8.2 % (1.0-6.0); RBC 3.44 10^6/uL (3.5-6.1); RED CELL DISTRIBUTION WIDTH 14.8 % (11.5-14.5); WHITE BLOOD COUNT 11.4 10^3/ul (4.5-11.0)
[2018-02-08] MEDS: Insulin Reg-MEDIUM-Coverage SC SCH ×4 (06:00→17:51)
[2018-02-08 06:27] LABS: ALB/GLOB RATIO 1.1 (1.1-1.8); ALBUMIN 2.8 g/dL (3.0-4.8); ALT/SGPT 55 U/L (7-56); AST/SGOT 38 U/L (17-59); BLOOD UREA NITROGEN 27 mg/dL (7-21); CALCIUM 7.6 mg/dL (8.4-10.5); GFR AFRICAN-AMERICAN > 60; GFR NON-AFRICAN AMERICAN > 60
[2018-02-08] MEDS: Propofol 10 mg/ml 1,000 MG/100 ML VIAL IV PRN ×2 (06:42→13:46)
[2018-02-08] MEDS: Fentanyl 1000mcg/100ml NS 1,000 MCG/100 ML BAG IV PRN (06:53)
--- NOTE | 2018-02-08 08:05 | CON ---
DATE: 02/05/2018 GASTROENTEROLOGY CONSULTATION REQUESTING PHYSICIAN: Dr. Fallon. REASON FOR CONSULT: I have been asked to see this 57-year-old male with known coronary artery disease, status post CABG and multiple stents many years ago with continued tobacco use of 1 pack per day for many years, who was found by his in his sleep, unresponsive. EMS was called and the patient was found to be in VFib. ACLS protocol was started. The patient was given epinephrine and amiodarone in the field. He was brought to the hospital and intubated. He was put on a hypothermic protocol. I have been asked to see this patient for elevated liver enzymes. There is no prior history of liver disease. He denies any alcohol use. PAST MEDICAL HISTORY: As above. Again, he has a history of hypertension, coronary artery disease, thyroid disease. PAST SURGICAL HISTORY: Notable for CABG. SOCIAL HISTORY: He is a 1-pack a day tobacco user for 40 years. There is no history of alcohol use. FAMILY HISTORY: Noncontributory. MEDICATIONS AT HOME: Include aspirin, metoprolol and thyroid medication. REVIEW OF SYSTEMS: A 14-point review of systems is unobtainable as the patient is on the ventilator and sedated with a propofol drip. PHYSICAL EXAMINATION: GENERAL: Obese male, lying in bed on the ventilator. VITAL SIGNS: Reveal he is afebrile. Blood pressure 135/87, heart rate of 103. HEENT: Reveals sclerae to be white and endotracheal tube in his mouth. NECK: Supple. CHEST: Reveals scattered rhonchi. HEART: Reveals a regular rate and rhythm. ABDOMEN: Obese, soft, nontender. EXTREMITIES: Show some chronic stasis changes of his lower extremities. LABORATORY DATA: Reveal white blood cell count 26.6, hemoglobin 15.5. Chemistries reveal blood sugar 234, calcium 6.8. AST/ALT on admission to the hospital was 222 and 204. His troponin was 0.73. This morning, his AST is down to 124, ALT is down to 130. Troponin is 1.47. IMPRESSION: A 57-year-old male with a history of coronary artery disease with a ventricular fibrillation arrest at home, placed on a hypothermia protocol here in the hospital with mildly elevated liver enzymes. His liver enzymes are actually trending downwards. I suspect that it may have been initially elevated due to shock liver. Review of his medications do not demonstrate any hepatotoxic medications at home, although he was on simvastatin. The patient is also on amiodarone which can cause liver enzyme elevation, but his LFTs were elevated prior to being on amiodarone. He did receive amiodarone in the field. RECOMMENDATIONS: 1. Continue supportive care. 2. We will obtain an ultrasound of the liver when the patient's condition stabilizes. This can be done once the patient improves. 3. Check hepatitis serology. 4. Follow liver enzymes. Alexis Tinsley MD
--- NOTE | 2018-02-08 08:19 | CP.CCUPN ---
Addendum entered and electronically signed by Elisha Lorenzana DO 02/08/18 12:01 : clarification: No breathing trial because the peep is 11. Just want to see how much brain function he has as we taper off sedation (after given full AM dose of AEDs) Original Note: <Elisha Lorenzana - Last Filed: 02/08/18 11:50> CCU Subjective - Physician Review Subjective (Free Text): 02/05/18 12:12 Start rewarming now (less than 0.5 degree per hr till 98 F) No acute event overnight. Propofol 15 milrinone gtt 0.375 Amiodarino gtt should be stopped at noon now HR > [address] Soto: change dubneb PRN 02/07/18 12:26 Yesterday, vacation holiday but seen seizure Today 1 BM overnight, soft brown U/O 320 and gastric output 520 / over 24 hours 02/08/18 08:17 No seisure observed overnight. Cut down on sedation No BM, No gap reflex Dark stomach output 100 CC. U/O 700 cc/24 hrs CCU Objective - Vital Signs / Intake & Output Vital Signs (Last 4 hours): Vital Signs Temp Pulse Resp BP Pulse Ox 02/08/18 07:40 97.9 F 68 95 02/08/18 07:30 97.9 F 68 123/49 L 95 02/08/18 07:20 97.9 F 69 95 02/08/18 07:10 97.9 F 66 94 L 02/08/18 07:00 97.9 F 69 94 L 02/08/18 06:50 98.1 F 68 94 L 02/08/18 06:40 98.2 F 71 95 02/08/18 06:30 98.2 F 71 95 02/08/18 06:20 98.2 F 70 96 02/08/18 06:10 98.4 F 68 98 02/08/18 06:04 98.4 F 70 96 02/08/18 06:03 98.4 F 58 H 02/08/18 06:02 98.4 F 78 31 H 02/08/18 06:01 98.4 F 78 02/08/18 06:00 98.4 F 76 02/08/18 05:59 98.4 F 71 02/08/18 05:58 98.4 F 71 02/08/18 05:57 98.4 F 76 02/08/18 05:50 98.6 F 69 93 L 02/08/18 05:40 98.6 F 73 95 02/08/18 05:30 98.6 F 73 121/54 L 94 L 02/08/18 05:20 98.6 F 73 95 02/08/18 05:10 98.6 F 75 95 02/08/18 05:00 98.6 F 72 138/56 L 95 02/08/18 04:50 98.6 F 76 95 02/08/18 04:40 98.6 F 77 95 02/08/18 04:30 98.6 F 75 124/55 L 95 02/08/18 04:20 98.8 F 75 95 Intake and Output (Last 8hrs): Intake & Output 02/07/18 02/08/18 02/08/18 22:59 06:59 14:59 Intake Total 1339 1324 Output Total 125 700 Balance 1214 624 Weight 219 lb Intake: IV 1319 1324 Right Internal Jugular 1166 abx 100 fentanyl 66 heparin 120 milrinone 143 propofol 220 protonix 220 versed 55 Tube Feeding 20 Output: Gastric Amount 100 Stomach 100 Urine 125 600 Urethral (Garcia) 125 600 Other: # Bowel Movements 0 0 - Physical Exam Head: Positive for: Atraumatic, Normocephalic Pupils: Positive for: Other (Pupils fixed bilaterally) Conjunctiva: Positive for: Normal Mouth: Positive for: Moist Mucous Membranes Respiratory/Chest: Positive for: Clear to Auscultation, Good Air Exchange ( Equal breath sounds bilaterally) Cardiovascular: Positive for: Regular Rate and Rhythm, Normal S1, S2. Negative for: Murmurs Abdomen: Negative for: Distention, Peritoneal Signs Upper Extremity: Negative for: Cyanosis, Edema Lower Extremity: Negative for: Edema Neurological: Positive for: Normal Sensory Function (Responsive to painful stimuli) Skin: Positive for: Warm, Dry, Normal Color. Negative for: Rashes - Medications Active Medications: Active Medications Generic Name Dose Route Start Last Admin Trade Name Freq PRN Reason Stop Dose Admin Albuterol/Ipratropium 3 ml 02/05/18 12:47 02/07/18 13:13 Duoneb 3 Mg/0.5 Mg (3 Ml) Ud IH 3 ml [id number] PRN Administration Shortness of Breath Artificial Tears 0 ml 02/04/18 15:56 02/07/18 08:40 Artificial Tears OU 2 drop Q8 PRN Administration Dry eyes Aspirin 81 mg 02/07/18 10:00 02/07/18 10:18 Aspirin Chewable PO 81 mg DAILY DAMON Administration Atorvastatin Calcium 40 mg 02/04/18 17:00 02/07/18 18:07 Lipitor PO 40 mg DIN DAMON Administration Furosemide 40 mg 02/08/18 08:00 Lasix IVP DAILY DAMON Hydrocortisone Sodium Succinate 50 mg 02/05/18 22:00 02/08/18 05:32 Solu-Cortef IVP 50 mg Q8 DAMON Administration Propofol 1,000 mg in 100 mls @ 3.538 mls/hr 02/04/18 05:03 02/08/18 06:42 Diprivan IV 20 mcg/kg/min .Q24H PRN 14.152 mls/hr TITRATE PER MD ORDER Administration Protocol 5 MCG/KG/MIN Cefepime HCl 2 gm in 100 mls @ 100 mls/hr 02/04/18 10:00 02/07/18 22:43 Maxipime 2gm IVPB 02/09/18 10:01 100 mls/hr Q12 DAMON Administration Protocol Pantoprazole Sodium 40 mg in 100 mls @ 20 mls/hr 02/04/18 09:00 02/08/18 07: 47 Protonix 40mg Ivpb IVPB 20 mls/hr .Q5H DAMON Administration Milrinone Lactate/Dextrose 100 mls @ 13.268 mls/hr 02/04/18 08:59 02/08/18 01 :35 Primacor 20mg/100ml D5w IV 0.375 mcg/kg/min .[id number] PRN 13.268 mls/hr TITRATE PER MD ORDER Administration Protocol 0.375 MCG/KG/MIN Cisatracurium Besylate 200 mg/ 270 mls @ 9.55 mls/hr 02/04/18 09:00 02/06/18 06:00 Sodium Chloride IV 0 mcg/kg/min .Q24H PRN 0 mls/hr TITRATE PER MD ORDER Titration Protocol 1 MCG/KG/MIN Heparin Sodium/Sodium Chloride 25,000 units in 250 mls @ 14.152 mls/hr 09:15 02/07/18 23:26 Heparin 01612 Units/250ml 1/2 Normal Saline IV 8 units/kg/hr .[id number] DAMON 9.435 mls/hr Protocol Administration 12 UNITS/KG/HR NOREPINEPHRINE BIT/0.9 % NACL 4 mg in 250 mls @ 15 mls/hr 02/04/18 15:23 03/17 18:00 Levophed 4 Mg/ 250 Ml Ns Premixed IV 0 mcg/min .[id number] PRN 0 mls/hr TITRATE PER MD ORDER Titration Protocol 4 MCG/MIN Midazolam 100 mg/100ml in NS 100 mg in 100 mls @ 1 mls/hr 02/06/18 05:52 06/17 11:30 Midazolam 100 Mg/100ml In Ns IV 5 mg/hr .Q24H PRN 5 mls/hr Sedation Titration Protocol 1 MG/HR Fentanyl Citrate 1,000 mcg in 100 mls @ 2 mls/hr 02/06/18 15:13 02/08/18 06: 53 Fentanyl Citrate/Sodium Chloride 1 Mg/100 Ml IV 60 mcg/hr .Q24H PRN 6 mls/hr TITRATE PER MD ORDER Administration Protocol 20 MCG/HR Doxycycline Hyclate 100 mg/ 100 mls @ 100 mls/hr 02/07/18 22:00 02/07/18 23: 38 Sodium Chloride IVPB 100 mls/hr Q12 DAMON Administration Protocol Levetiracetam 1,000 mg/ Sodium 110 mls @ 430 mls/hr 02/07/18 12:36 02/07/18 22:03 Chloride IV 430 mls/hr Q12 DAMON Administration Insulin Human Regular 0 units 02/05/18 12:00 02/08/18 06:00 Humulin R Med SC Not Given Q6 DAMON Protocol Lorazepam 1 mg 02/05/18 18:40 02/06/18 14:28 Ativan IVP 1 mg Q6H PRN Administration Seizure activity Protocol - Patient Studies Lab Studies: Microbiology Studies 02/04/18 07:00 Blood Culture - Preliminary Blood-Venous NO GROWTH AFTER 4 DAYS 02/04/18 06:45 Blood Culture - Preliminary Blood-Venous NO GROWTH AFTER 4 DAYS 02/05/18 06:30 Blood Culture - Preliminary Blood NO GROWTH AFTER 3 DAYS Lab Studies 02/08/18 02/08/18 02/08/18 Range/Units 05:30 05:30 05:30 WBC (4.5-11.0) 10^3/ul RBC (3.5-6.1) 10^6/uL Hgb (14.0-18.0) g/dL Hct (42.0-52.0) % MCV (80.0-105.0) fl MCH (25.0-35.0) pg MCHC (31.0-37.0) g/dl RDW (11.5-14.5) % Plt Count (120.0-450.0) 10^3/uL MPV (7.0-11.0) fl Gran % (50.0-68.0) % Lymph % (Auto) (22.0-35.0) % Ray % (Auto) (1.0-6.0) % Eos % (Auto) (1.5-5.0) % Baso % (Auto) (0.0-3.0) % Gran # (1.4-6.5) Lymph # (Auto) (1.2-3.4) Ray # (Auto) (0.1-0.6) Eos # (Auto) (0.0-0.7) Baso # (Auto) (0.0-2.0) K/mm3 APTT 91.4 H (25.1-36.5) Seconds pCO2 41 (35-45) mm/Hg pO2 75.0 L (80-100) mm/Hg HCO3 26.6 (21-28) mmol/L ABG pH 7.42 (7.35-7.45) ABG Total CO2 27.9 (22-28) mmol.L ABG O2 Saturation 97.1 (95-98) % ABG Base Excess 1.9 (-2.0-3.0) mmol/L ABG Potassium 4.1 (3.6-5.2) mmol/L Glucose 131 H (75-110) mg/dl Lactate 0.9 (0.7-2.1) mmol/L FiO2 35.0 % Sodium 142.0 141 (132-148) mmol/L Potassium 4.3 (3.6-5.0) mmol/L Chloride 115.0 H 110 H (98-107) mmol/L Carbon Dioxide 26 (21-33) mmol/L Anion Gap 10 (10-20) BUN 27 H (7-21) mg/dL Creatinine 1.0 (0.8-1.5) mg/dl Est GFR ( Amer) > 60 Est GFR (Non-Af Amer) > 60 POC Glucose (mg/dL) (65-110) mg/dL Random Glucose 133 H (70-110) mg/dL Calcium 7.6 L (8.4-10.5) mg/dL Phosphorus 2.5 (2.5-4.5) mg/dL Magnesium 2.3 H (1.7-2.2) mg/dL Total Bilirubin 0.5 (0.2-1.3) mg/dL AST 38 (17-59) U/L ALT 55 (7-56) U/L Alkaline Phosphatase 44 (38-126) U/L Total Protein 5.3 L (5.8-8.3) g/dL Albumin 2.8 L (3.0-4.8) g/dL Globulin 2.5 gm/dL Albumin/Globulin Ratio 1.1 (1.1-1.8) Arterial Blood Potassium 4.1 (3.6-5.2) mmol/L 02/08/18 02/08/18 02/07/18 Range/Units 05:30 00:52 23:05 WBC 11.4 H (4.5-11.0) 10^3/ul RBC 3.44 L (3.5-6.1) 10^6/uL Hgb 10.1 L (14.0-18.0) g/dL Hct 29.9 L (42.0-52.0) % MCV 86.9 (80.0-105.0) fl MCH 29.4 (25.0-35.0) pg MCHC 33.8 (31.0-37.0) g/dl RDW 14.8 H (11.5-14.5) % Plt Count 110 L (120.0-450.0) 10^3/uL MPV 10.8 (7.0-11.0) fl Gran % 68.3 H (50.0-68.0) % Lymph % (Auto) 22.6 (22.0-35.0) % Ray % (Auto) 8.2 H (1.0-6.0) % Eos % (Auto) 0.8 L (1.5-5.0) % Baso % (Auto) 0.1 (0.0-3.0) % Gran # 7.81 H (1.4-6.5) Lymph # (Auto) 2.6 (1.2-3.4) Ray # (Auto) 0.9 H (0.1-0.6) Eos # (Auto) 0.1 (0.0-0.7) Baso # (Auto) 0.01 (0.0-2.0) K/mm3 APTT 44.6 H (25.1-36.5) Seconds pCO2 (35-45) mm/Hg pO2 (80-100) mm/Hg HCO3 (21-28) mmol/L ABG pH (7.35-7.45) ABG Total CO2 (22-28) mmol.L ABG O2 Saturation (95-98) % ABG Base Excess (-2.0-3.0) mmol/L ABG Potassium (3.6-5.2) mmol/L Glucose (75-110) mg/dl Lactate (0.7-2.1) mmol/L FiO2 % Sodium (132-148) mmol/L Potassium (3.6-5.0) mmol/L Chloride (98-107) mmol/L Carbon Dioxide (21-33) mmol/L Anion Gap (10-20) BUN (7-21) mg/dL Creatinine (0.8-1.5) mg/dl Est GFR ( Amer) Est GFR (Non-Af Amer) POC Glucose (mg/dL) 131 H (65-110) mg/dL Random Glucose (70-110) mg/dL Calcium (8.4-10.5) mg/dL Phosphorus (2.5-4.5) mg/dL Magnesium (1.7-2.2) mg/dL Total Bilirubin (0.2-1.3) mg/dL AST (17-59) U/L ALT (7-56) U/L Alkaline Phosphatase (38-126) U/L Total Protein (5.8-8.3) g/dL Albumin (3.0-4.8) g/dL Globulin gm/dL Albumin/Globulin Ratio (1.1-1.8) Arterial Blood Potassium (3.6-5.2) mmol/L 02/07/18 02/07/18 02/07/18 Range/Units 23:05 17:25 15:41 WBC (4.5-11.0) 10^3/ul RBC (3.5-6.1) 10^6/uL Hgb (14.0-18.0) g/dL Hct (42.0-52.0) % MCV (80.0-105.0) fl MCH (25.0-35.0) pg MCHC (31.0-37.0) g/dl RDW (11.5-14.5) % Plt Count (120.0-450.0) 10^3/uL MPV (7.0-11.0) fl Gran % (50.0-68.0) % Lymph % (Auto) (22.0-35.0) % Ray % (Auto) (1.0-6.0) % Eos % (Auto) (1.5-5.0) % Baso % (Auto) (0.0-3.0) % Gran # (1.4-6.5) Lymph # (Auto) (1.2-3.4) Ray # (Auto) (0.1-0.6) Eos # (Auto) (0.0-0.7) Baso # (Auto) (0.0-2.0) K/mm3 APTT 60.5 H (25.1-36.5) Seconds pCO2 (35-45) mm/Hg pO2 (80-100) mm/Hg HCO3 (21-28) mmol/L ABG pH (7.35-7.45) ABG Total CO2 (22-28) mmol.L ABG O2 Saturation (95-98) % ABG Base Excess (-2.0-3.0) mmol/L ABG Potassium (3.6-5.2) mmol/L Glucose (75-110) mg/dl Lactate (0.7-2.1) mmol/L FiO2 % Sodium 143 (132-148) mmol/L Potassium 4.3 (3.6-5.0) mmol/L Chloride 109 H (98-107) mmol/L Carbon Dioxide 26 (21-33) mmol/L Anion Gap 11 (10-20) BUN 28 H (7-21) mg/dL Creatinine 1.0 (0.8-1.5) mg/dl Est GFR ( Amer) > 60 Est GFR (Non-Af Amer) > 60 POC Glucose (mg/dL) 154 H (65-110) mg/dL Random Glucose 118 H (70-110) mg/dL Calcium 7.5 L (8.4-10.5) mg/dL Phosphorus 2.7 (2.5-4.5) mg/dL Magnesium 2.3 H (1.7-2.2) mg/dL Total Bilirubin 0.5 (0.2-1.3) mg/dL AST 38 (17-59) U/L ALT 57 H (7-56) U/L Alkaline Phosphatase 41 (38-126) U/L Total Protein 5.2 L (5.8-8.3) g/dL Albumin 2.6 L (3.0-4.8) g/dL Globulin 2.6 gm/dL Albumin/Globulin Ratio 1.0 L (1.1-1.8) Arterial Blood Potassium (3.6-5.2) mmol/L 02/07/18 Range/Units 12:15 WBC (4.5-11.0) 10^3/ul RBC (3.5-6.1) 10^6/uL Hgb (14.0-18.0) g/dL Hct (42.0-52.0) % MCV (80.0-105.0) fl MCH (25.0-35.0) pg MCHC (31.0-37.0) g/dl RDW (11.5-14.5) % Plt Count (120.0-450.0) 10^3/uL MPV (7.0-11.0) fl Gran % (50.0-68.0) % Lymph % (Auto) (22.0-35.0) % Ray % (Auto) (1.0-6.0) % Eos % (Auto) (1.5-5.0) % Baso % (Auto) (0.0-3.0) % Gran # (1.4-6.5) Lymph # (Auto) (1.2-3.4) Ray # (Auto) (0.1-0.6) Eos # (Auto) (0.0-0.7) Baso # (Auto) (0.0-2.0) K/mm3 APTT (25.1-36.5) Seconds pCO2 (35-45) mm/Hg pO2 (80-100) mm/Hg HCO3 (21-28) mmol/L ABG pH (7.35-7.45) ABG Total CO2 (22-28) mmol.L ABG O2 Saturation (95-98) % ABG Base Excess (-2.0-3.0) mmol/L ABG Potassium (3.6-5.2) mmol/L Glucose (75-110) mg/dl Lactate (0.7-2.1) mmol/L FiO2 % Sodium (132-148) mmol/L Potassium (3.6-5.0) mmol/L Chloride (98-107) mmol/L Carbon Dioxide (21-33) mmol/L Anion Gap (10-20) BUN (7-21) mg/dL Creatinine (0.8-1.5) mg/dl Est GFR ( Amer) Est GFR (Non-Af Amer) POC Glucose (mg/dL) 151 H (65-110) mg/dL Random Glucose (70-110) mg/dL Calcium (8.4-10.5) mg/dL Phosphorus (2.5-4.5) mg/dL Magnesium (1.7-2.2) mg/dL Total Bilirubin (0.2-1.3) mg/dL AST (17-59) U/L ALT (7-56) U/L Alkaline Phosphatase (38-126) U/L Total Protein (5.8-8.3) g/dL Albumin (3.0-4.8) g/dL Globulin gm/dL Albumin/Globulin Ratio (1.1-1.8) Arterial Blood Potassium (3.6-5.2) mmol/L Laboratory Results - last 24 hr 02/07/18 02/07/18 02/07/18 12:15 15:41 17:25 WBC RBC Hgb Hct MCV MCH MCHC RDW Plt Count MPV Gran % Lymph % (Auto) Ray % (Auto) Eos % (Auto) Baso % (Auto) Gran # Lymph # (Auto) Ray # (Auto) Eos # (Auto) Baso # (Auto) APTT 60.5 H pCO2 pO2 HCO3 ABG pH ABG Total CO2 ABG O2 Saturation ABG Base Excess ABG Potassium Glucose Lactate FiO2 Sodium Potassium Chloride Carbon Dioxide Anion Gap BUN Creatinine Est GFR ( Amer) Est GFR (Non-Af Amer) POC Glucose (mg/dL) 151 H 154 H Random Glucose Calcium Phosphorus Magnesium Total Bilirubin AST ALT Alkaline Phosphatase Total Protein Albumin Globulin Albumin/Globulin Ratio Arterial Blood Potassium 02/07/18 02/07/18 02/08/18 23:05 23:05 00:52 WBC RBC Hgb Hct MCV MCH MCHC RDW Plt Count MPV Gran % Lymph % (Auto) Ray % (Auto) Eos % (Auto) Baso % (Auto) Gran # Lymph # (Auto) Ray # (Auto) Eos # (Auto) Baso # (Auto) APTT 44.6 H pCO2 pO2 HCO3 ABG pH ABG Total CO2 ABG O2 Saturation ABG Base Excess ABG Potassium Glucose Lactate FiO2 Sodium 143 Potassium 4.3 Chloride 109 H Carbon Dioxide 26 Anion Gap 11 BUN 28 H Creatinine 1.0 Est GFR ( Amer) > 60 Est GFR (Non-Af Amer) > 60 POC Glucose (mg/dL) 131 H Random Glucose 118 H Calcium 7.5 L Phosphorus 2.7 Magnesium 2.3 H Total Bilirubin 0.5 AST 38 ALT 57 H Alkaline Phosphatase 41 Total Protein 5.2 L Albumin 2.6 L Globulin 2.6 Albumin/Globulin Ratio 1.0 L Arterial Blood Potassium 02/08/18 02/08/18 02/08/18 05:30 05:30 05:30 WBC 11.4 H RBC 3.44 L Hgb 10.1 L Hct 29.9 L MCV 86.9 MCH 29.4 MCHC 33.8 RDW 14.8 H Plt Count 110 L MPV 10.8 Gran % 68.3 H Lymph % (Auto) 22.6 Ray % (Auto) 8.2 H Eos % (Auto) 0.8 L Baso % (Auto) 0.1 Gran # 7.81 H Lymph # (Auto) 2.6 Ray # (Auto) 0.9 H Eos # (Auto) 0.1 Baso # (Auto) 0.01 APTT pCO2 41 pO2 75.0 L HCO3 26.6 ABG pH 7.42 ABG Total CO2 27.9 ABG O2 Saturation 97.1 ABG Base Excess 1.9 ABG Potassium 4.1 Glucose 131 H Lactate 0.9 FiO2 35.0 Sodium 141 142.0 Potassium 4.3 Chloride 110 H 115.0 H Carbon Dioxide 26 Anion Gap 10 BUN 27 H Creatinine 1.0 Est GFR ( Amer) > 60 Est GFR (Non-Af Amer) > 60 POC Glucose (mg/dL) Random Glucose 133 H Calcium 7.6 L Phosphorus 2.5 Magnesium 2.3 H Total Bilirubin 0.5 AST 38 ALT 55 Alkaline Phosphatase 44 Total Protein 5.3 L Albumin 2.8 L Globulin 2.5 Albumin/Globulin Ratio 1.1 Arterial Blood Potassium 4.1 02/08/18 05:30 WBC RBC Hgb Hct MCV MCH MCHC RDW Plt Count MPV Gran % Lymph % (Auto) Ray % (Auto) Eos % (Auto) Baso % (Auto) Gran # Lymph # (Auto) Ray # (Auto) Eos # (Auto) Baso # (Auto) APTT 91.4 H pCO2 pO2 HCO3 ABG pH ABG Total CO2 ABG O2 Saturation ABG Base Excess ABG Potassium Glucose Lactate FiO2 Sodium Potassium Chloride Carbon Dioxide Anion Gap BUN Creatinine Est GFR ( Amer) Est GFR (Non-Af Amer) POC Glucose (mg/dL) Random Glucose Calcium Phosphorus Magnesium Total Bilirubin AST ALT Alkaline Phosphatase Total Protein Albumin Globulin Albumin/Globulin Ratio Arterial Blood Potassium Fingerstick Blood Sugar Results: 142 Assessment/Plan - Assessment and Plan (Free Text) Plan: Mr Ordonez, 57yomale with PMHx of CAD s/p CABG with 4 stents, HTN, hypothyroidism, s/p Vfib arrest in the field, s/p hypothermic protocol, s/p rewarming. CXR showed pulmonary edema, improved, but cannot rule out pneumonia. Failed breathing trial on Thursday because of seizure. Keppra increased to 1g Q12. BIS mantained at 25-30, on versed 5, fentynl 60, propofpl 20. CTH done on admission, c/w anoxic brain injury. CXR noted with bilateral pulm vasc congestion, cannot rule out infiltrate. Procalc 2.75 A: 1. S/p V fib cardiac arrest. hx CAD s/p CABG s/p stent 2. Anoxic brain injury and seizure, ventilator dependent respiratory failure, intubation day ___5___ 3. Cardiogenic shock vs Septic shock. off pressors. 4. Acute decompensated systolic 4. Pulm edema cannot rule out PNA 5. Hx hypothyrodism 6. ? GI bleed. Dark gastric content 100cc overnight P: Neuro Versed 5, fentynl 60, propofpl 20 EEG while on sedation (02/04): No seizure Keppra 1500 mg Q12. Add valproate [address] Whitlock: OK to do sedation vacation after giving the AM dose of 1500 keppra and valproate 1000 EEG today f/u CT head today f/u Pulm Cont with vent support, 450/24/P10/35% Low tidal vol ventilation, daily sedation vacation CPAP trials as tolerated, ABG acceptable Duonebs PRN CXR: New bibasilar infiltrate (new), slight incrase in pulm edema Card Echo 20-25%. Septal and apex severely hypokinetic Milrinone gtt 0.375 Off Levophed today Hold ASA for dark gastric aspiration Lasix 40 IV daily Lipitor Would hold off AMio for now, given LFTs, and normal sinus rhythm GI Protonix gtt ---> can we change it to BID?? Contacted Dr Tinsley re: GI bleed: ____ pending call back 700cc U/O (~30cc/hr) BUN 27. Cre 1 Endo Goal: Sugar 140-180 A1C Heme Off heparin gtt H/H stable Type and Cross ID Taper stress steroid, today: Solu-cortef [id number] today. Taper tomorrow PVX SCD, protonix gtt s/r/d/w Dr Youssef <Tomi Youssef - Last Filed: 02/08/18 12:58> CCU Objective - Vital Signs / Intake & Output Vital Signs (Last 4 hours): Vital Signs Pulse BP 02/08/18 12:04 106 H 02/08/18 10:02 146/58 L Intake and Output (Last 8hrs): Intake & Output 02/07/18 02/08/18 02/08/18 22:59 06:59 14:59 Intake Total 1339 1324 194 Output Total 125 700 Balance 1214 624 194 Weight 219 lb Intake: IV 1319 1324 194 Right Internal Jugular 1166 abx 100 fentanyl 66 heparin 120 milrinone 143 propofol 220 protonix 220 versed 55 Tube Feeding 20 Output: Gastric Amount 100 Stomach 100 Urine 125 600 Urethral (Garcia) 125 600 Other: # Bowel Movements 0 0 - Medications Active Medications: Active Medications Generic Name Dose Route Start Last Admin Trade Name Freq PRN Reason Stop Dose Admin Albuterol/Ipratropium 3 ml 02/05/18 12:47 02/07/18 13:13 Duoneb 3 Mg/0.5 Mg (3 Ml) Ud IH 3 ml [id number] PRN Administration Shortness of Breath Artificial Tears 0 ml 02/04/18 15:56 02/07/18 08:40 Artificial Tears OU 2 drop Q8 PRN Administration Dry eyes Aspirin 81 mg 02/07/18 10:00 02/08/18 09:59 Aspirin Chewable PO 81 mg DAILY DAMON Administration Atorvastatin Calcium 40 mg 02/04/18 17:00 02/07/18 18:07 Lipitor PO 40 mg DIN DAMON Administration Furosemide 40 mg 02/08/18 08:00 02/08/18 10:02 Lasix IVP 40 mg DAILY DAMON Administration Hydrocortisone Sodium Succinate 25 mg 02/08/18 08:54 Solu-Cortef IVP Q8 DAMON Propofol 1,000 mg in 100 mls @ 3.538 mls/hr 02/04/18 05:03 02/08/18 06:42 Diprivan IV 20 mcg/kg/min .Q24H PRN 14.152 mls/hr TITRATE PER MD ORDER Administration Protocol 5 MCG/KG/MIN Cefepime HCl 2 gm in 100 mls @ 100 mls/hr 02/04/18 10:00 02/08/18 09:57 Maxipime 2gm IVPB 02/09/18 10:01 100 mls/hr Q12 DAMON Administration Protocol Milrinone Lactate/Dextrose 100 mls @ 13.268 mls/hr 02/04/18 08:59 02/08/18 12 :04 Primacor 20mg/100ml D5w IV 0.376 mcg/kg/min .[id number] PRN 13.303 mls/hr TITRATE PER MD ORDER Administration Protocol 0.375 MCG/KG/MIN NOREPINEPHRINE BIT/0.9 % NACL 4 mg in 250 mls @ 15 mls/hr 02/04/18 15:23 03/17 18:00 Levophed 4 Mg/ 250 Ml Ns Premixed IV 0 mcg/min .[id number] PRN 0 mls/hr TITRATE PER MD ORDER Titration Protocol 4 MCG/MIN Midazolam 100 mg/100ml in NS 100 mg in 100 mls @ 1 mls/hr 02/06/18 05:52 07/18 08:21 Midazolam 100 Mg/100ml In Ns IV 5 mg/hr .Q24H PRN 5 mls/hr Sedation Administration Protocol 1 MG/HR Fentanyl Citrate 1,000 mcg in 100 mls @ 2 mls/hr 02/06/18 15:13 02/08/18 06: 53 Fentanyl Citrate/Sodium Chloride 1 Mg/100 Ml IV 60 mcg/hr .Q24H PRN 6 mls/hr TITRATE PER MD ORDER Administration Protocol 20 MCG/HR Doxycycline Hyclate 100 mg/ 100 mls @ 100 mls/hr 02/07/18 22:00 02/08/18 09: 57 Sodium Chloride IVPB 100 mls/hr Q12 DAMON Administration Protocol Levetiracetam 1,500 mg/ Sodium 115 mls @ 460 mls/hr 02/08/18 22:00 Chloride IV Q12 [facility] Valproate Sodium 1,000 mg/ 110 mls @ 100 mls/hr 02/08/18 12:00 Sodium Chloride IVPB Q12 [facility] Insulin Human Regular 0 units 02/05/18 12:00 02/08/18 06:00 Humulin R Med SC Not Given Q6 [facility] Protocol Lorazepam 1 mg 02/05/18 18:40 02/06/18 14:28 Ativan IVP 1 mg Q6H PRN Administration Seizure activity Protocol Pantoprazole Sodium 40 mg 02/08/18 22:00 Protonix Inj IVP Q12 [facility] - Patient Studies Lab Studies: Microbiology Studies 02/04/18 07:00 Blood Culture - Preliminary Blood-Venous NO GROWTH AFTER 4 DAYS 02/04/18 06:45 Blood Culture - Preliminary Blood-Venous NO GROWTH AFTER 4 DAYS 02/05/18 06:30 Blood Culture - Preliminary Blood NO GROWTH AFTER 3 DAYS Lab Studies 06/11/18 06/11/18 06/11/18 Range/Units 11:45 11:45 11:25 WBC (4.5-11.0) 10^3/ul RBC (3.5-6.1) 10^6/uL Hgb (14.0-18.0) g/dL Hct (42.0-52.0) % MCV (80.0-105.0) fl MCH (25.0-35.0) pg MCHC (31.0-37.0) g/dl RDW (11.5-14.5) % Plt Count (120.0-450.0) 10^3/uL MPV (7.0-11.0) fl Gran % (50.0-68.0) % Lymph % (Auto) (22.0-35.0) % Ray % (Auto) (1.0-6.0) % Eos % (Auto) (1.5-5.0) % Baso % (Auto) (0.0-3.0) % Gran # (1.4-6.5) Lymph # (Auto) (1.2-3.4) Ray # (Auto) (0.1-0.6) Eos # (Auto) (0.0-0.7) Baso # (Auto) (0.0-2.0) K/mm3 PT 12.9 H (9.4-12.5) SECONDS INR 1.12 H (0.93-1.08) APTT (25.1-36.5) Seconds pCO2 (35-45) mm/Hg pO2 (80-100) mm/Hg HCO3 (21-28) mmol/L ABG pH (7.35-7.45) ABG Total CO2 (22-28) mmol.L ABG O2 Saturation (95-98) % ABG Base Excess (-2.0-3.0) mmol/L ABG Potassium (3.6-5.2) mmol/L Glucose (75-110) mg/dl Lactate (0.7-2.1) mmol/L FiO2 % Sodium (132-148) mmol/L Potassium (3.6-5.0) mmol/L Chloride (98-107) mmol/L Carbon Dioxide (21-33) mmol/L Anion Gap (10-20) BUN (7-21) mg/dL Creatinine (0.8-1.5) mg/dl Est GFR ( Amer) Est GFR (Non-Af Amer) POC Glucose (mg/dL) 100 (65-110) mg/dL Random Glucose (70-110) mg/dL Calcium (8.4-10.5) mg/dL Phosphorus (2.5-4.5) mg/dL Magnesium (1.7-2.2) mg/dL Total Bilirubin (0.2-1.3) mg/dL AST (17-59) U/L ALT (7-56) U/L Alkaline Phosphatase (38-126) U/L Total Protein (5.8-8.3) g/dL Albumin (3.0-4.8) g/dL Globulin gm/dL Albumin/Globulin Ratio (1.1-1.8) Arterial Blood Potassium (3.6-5.2) mmol/L Hepatitis A IgM Ab (NEGATIVE) Hep Bs Antigen (NEGATIVE) Hep B Core IgM Ab (NEGATIVE) Hepatitis C Antibody (NEGATIVE) Crossmatch See Detail BBK History Checked No verified bt 02/08/18 02/08/18 02/08/18 Range/Units 05:30 05:30 05:30 WBC (4.5-11.0) 10^3/ul RBC (3.5-6.1) 10^6/uL Hgb (14.0-18.0) g/dL Hct (42.0-52.0) % MCV (80.0-105.0) fl MCH (25.0-35.0) pg MCHC (31.0-37.0) g/dl RDW (11.5-14.5) % Plt Count (120.0-450.0) 10^3/uL MPV (7.0-11.0) fl Gran % (50.0-68.0) % Lymph % (Auto) (22.0-35.0) % Ray % (Auto) (1.0-6.0) % Eos % (Auto) (1.5-5.0) % Baso % (Auto) (0.0-3.0) % Gran # (1.4-6.5) Lymph # (Auto) (1.2-3.4) Ray # (Auto) (0.1-0.6) Eos # (Auto) (0.0-0.7) Baso # (Auto) (0.0-2.0) K/mm3 PT (9.4-12.5) SECONDS INR (0.93-1.08) APTT 91.4 H (25.1-36.5) Seconds pCO2 41 (35-45) mm/Hg pO2 75.0 L (80-100) mm/Hg HCO3 26.6 (21-28) mmol/L ABG pH 7.42 (7.35-7.45) ABG Total CO2 27.9 (22-28) mmol.L ABG O2 Saturation 97.1 (95-98) % ABG Base Excess 1.9 (-2.0-3.0) mmol/L ABG Potassium 4.1 (3.6-5.2) mmol/L Glucose 131 H (75-110) mg/dl Lactate 0.9 (0.7-2.1) mmol/L FiO2 35.0 % Sodium 142.0 141 (132-148) mmol/L Potassium 4.3 (3.6-5.0) mmol/L Chloride 115.0 H 110 H (98-107) mmol/L Carbon Dioxide 26 (21-33) mmol/L Anion Gap 10 (10-20) BUN 27 H (7-21) mg/dL Creatinine 1.0 (0.8-1.5) mg/dl Est GFR ( Amer) > 60 Est GFR (Non-Af Amer) > 60 POC Glucose (mg/dL) (65-110) mg/dL Random Glucose 133 H (70-110) mg/dL Calcium 7.6 L (8.4-10.5) mg/dL Phosphorus 2.5 (2.5-4.5) mg/dL Magnesium 2.3 H (1.7-2.2) mg/dL Total Bilirubin 0.5 (0.2-1.3) mg/dL AST 38 (17-59) U/L ALT 55 (7-56) U/L Alkaline Phosphatase 44 (38-126) U/L Total Protein 5.3 L (5.8-8.3) g/dL Albumin 2.8 L (3.0-4.8) g/dL Globulin 2.5 gm/dL Albumin/Globulin Ratio 1.1 (1.1-1.8) Arterial Blood Potassium 4.1 (3.6-5.2) mmol/L Hepatitis A IgM Ab (NEGATIVE) Hep Bs Antigen (NEGATIVE) Hep B Core IgM Ab (NEGATIVE) Hepatitis C Antibody (NEGATIVE) Crossmatch BBK History Checked 02/08/18 02/08/18 02/07/18 Range/Units 05:30 00:52 23:05 WBC 11.4 H (4.5-11.0) 10^3/ul RBC 3.44 L (3.5-6.1) 10^6/uL Hgb 10.1 L (14.0-18.0) g/dL Hct 29.9 L (42.0-52.0) % MCV 86.9 (80.0-105.0) fl MCH 29.4 (25.0-35.0) pg MCHC 33.8 (31.0-37.0) g/dl RDW 14.8 H (11.5-14.5) % Plt Count 110 L (120.0-450.0) 10^3/uL MPV 10.8 (7.0-11.0) fl Gran % 68.3 H (50.0-68.0) % Lymph % (Auto) 22.6 (22.0-35.0) % Ray % (Auto) 8.2 H (1.0-6.0) % Eos % (Auto) 0.8 L (1.5-5.0) % Baso % (Auto) 0.1 (0.0-3.0) % Gran # 7.81 H (1.4-6.5) Lymph # (Auto) 2.6 (1.2-3.4) Ray # (Auto) 0.9 H (0.1-0.6) Eos # (Auto) 0.1 (0.0-0.7) Baso # (Auto) 0.01 (0.0-2.0) K/mm3 PT (9.4-12.5) SECONDS INR (0.93-1.08) APTT 44.6 H (25.1-36.5) Seconds pCO2 (35-45) mm/Hg pO2 (80-100) mm/Hg HCO3 (21-28) mmol/L ABG pH (7.35-7.45) ABG Total CO2 (22-28) mmol.L ABG O2 Saturation (95-98) % ABG Base Excess (-2.0-3.0) mmol/L ABG Potassium (3.6-5.2) mmol/L Glucose (75-110) mg/dl Lactate (0.7-2.1) mmol/L FiO2 % Sodium (132-148) mmol/L Potassium (3.6-5.0) mmol/L Chloride (98-107) mmol/L Carbon Dioxide (21-33) mmol/L Anion Gap (10-20) BUN (7-21) mg/dL Creatinine (0.8-1.5) mg/dl Est GFR ( Amer) Est GFR (Non-Af Amer) POC Glucose (mg/dL) 131 H (65-110) mg/dL Random Glucose (70-110) mg/dL Calcium (8.4-10.5) mg/dL Phosphorus (2.5-4.5) mg/dL Magnesium (1.7-2.2) mg/dL Total Bilirubin (0.2-1.3) mg/dL AST (17-59) U/L ALT (7-56) U/L Alkaline Phosphatase (38-126) U/L Total Protein (5.8-8.3) g/dL Albumin (3.0-4.8) g/dL Globulin gm/dL Albumin/Globulin Ratio (1.1-1.8) Arterial Blood Potassium (3.6-5.2) mmol/L Hepatitis A IgM Ab (NEGATIVE) Hep Bs Antigen (NEGATIVE) Hep B Core IgM Ab (NEGATIVE) Hepatitis C Antibody (NEGATIVE) Crossmatch BBK History Checked 02/07/18 02/07/18 02/07/18 Range/Units 23:05 17:25 15:41 WBC (4.5-11.0) 10^3/ul RBC (3.5-6.1) 10^6/uL Hgb (14.0-18.0) g/dL Hct (42.0-52.0) % MCV (80.0-105.0) fl MCH (25.0-35.0) pg MCHC (31.0-37.0) g/dl RDW (11.5-14.5) % Plt Count (120.0-450.0) 10^3/uL MPV (7.0-11.0) fl Gran % (50.0-68.0) % Lymph % (Auto) (22.0-35.0) % Ray % (Auto) (1.0-6.0) % Eos % (Auto) (1.5-5.0) % Baso % (Auto) (0.0-3.0) % Gran # (1.4-6.5) Lymph # (Auto) (1.2-3.4) Ray # (Auto) (0.1-0.6) Eos # (Auto) (0.0-0.7) Baso # (Auto) (0.0-2.0) K/mm3 PT (9.4-12.5) SECONDS INR (0.93-1.08) APTT 60.5 H (25.1-36.5) Seconds pCO2 (35-45) mm/Hg pO2 (80-100) mm/Hg HCO3 (21-28) mmol/L ABG pH (7.35-7.45) ABG Total CO2 (22-28) mmol.L ABG O2 Saturation (95-98) % ABG Base Excess (-2.0-3.0) mmol/L ABG Potassium (3.6-5.2) mmol/L Glucose (75-110) mg/dl Lactate (0.7-2.1) mmol/L FiO2 % Sodium 143 (132-148) mmol/L Potassium 4.3 (3.6-5.0) mmol/L Chloride 109 H (98-107) mmol/L Carbon Dioxide 26 (21-33) mmol/L Anion Gap 11 (10-20) BUN 28 H (7-21) mg/dL Creatinine 1.0 (0.8-1.5) mg/dl Est GFR ( Amer) > 60 Est GFR (Non-Af Amer) > 60 POC Glucose (mg/dL) 154 H (65-110) mg/dL Random Glucose 118 H (70-110) mg/dL Calcium 7.5 L (8.4-10.5) mg/dL Phosphorus 2.7 (2.5-4.5) mg/dL Magnesium 2.3 H (1.7-2.2) mg/dL Total Bilirubin 0.5 (0.2-1.3) mg/dL AST 38 (17-59) U/L ALT 57 H (7-56) U/L Alkaline Phosphatase 41 (38-126) U/L Total Protein 5.2 L (5.8-8.3) g/dL Albumin 2.6 L (3.0-4.8) g/dL Globulin 2.6 gm/dL Albumin/Globulin Ratio 1.0 L (1.1-1.8) Arterial Blood Potassium (3.6-5.2) mmol/L Hepatitis A IgM Ab (NEGATIVE) Hep Bs Antigen (NEGATIVE) Hep B Core IgM Ab (NEGATIVE) Hepatitis C Antibody (NEGATIVE) Crossmatch BBK History Checked 02/06/18 Range/Units 05:00 WBC (4.5-11.0) 10^3/ul RBC (3.5-6.1) 10^6/uL Hgb (14.0-18.0) g/dL Hct (42.0-52.0) % MCV (80.0-105.0) fl MCH (25.0-35.0) pg MCHC (31.0-37.0) g/dl RDW (11.5-14.5) % Plt Count (120.0-450.0) 10^3/uL MPV (7.0-11.0) fl Gran % (50.0-68.0) % Lymph % (Auto) (22.0-35.0) % Ray % (Auto) (1.0-6.0) % Eos % (Auto) (1.5-5.0) % Baso % (Auto) (0.0-3.0) % Gran # (1.4-6.5) Lymph # (Auto) (1.2-3.4) Ray # (Auto) (0.1-0.6) Eos # (Auto) (0.0-0.7) Baso # (Auto) (0.0-2.0) K/mm3 PT (9.4-12.5) SECONDS INR (0.93-1.08) APTT (25.1-36.5) Seconds pCO2 (35-45) mm/Hg pO2 (80-100) mm/Hg HCO3 (21-28) mmol/L ABG pH (7.35-7.45) ABG Total CO2 (22-28) mmol.L ABG O2 Saturation (95-98) % ABG Base Excess (-2.0-3.0) mmol/L ABG Potassium (3.6-5.2) mmol/L Glucose (75-110) mg/dl Lactate (0.7-2.1) mmol/L FiO2 % Sodium (132-148) mmol/L Potassium (3.6-5.0) mmol/L Chloride (98-107) mmol/L Carbon Dioxide (21-33) mmol/L Anion Gap (10-20) BUN (7-21) mg/dL Creatinine (0.8-1.5) mg/dl Est GFR ( Amer) Est GFR (Non-Af Amer) POC Glucose (mg/dL) (65-110) mg/dL Random Glucose (70-110) mg/dL Calcium (8.4-10.5) mg/dL Phosphorus (2.5-4.5) mg/dL Magnesium (1.7-2.2) mg/dL Total Bilirubin (0.2-1.3) mg/dL AST (17-59) U/L ALT (7-56) U/L Alkaline Phosphatase (38-126) U/L Total Protein (5.8-8.3) g/dL Albumin (3.0-4.8) g/dL Globulin gm/dL Albumin/Globulin Ratio (1.1-1.8) Arterial Blood Potassium (3.6-5.2) mmol/L Hepatitis A IgM Ab Negative (NEGATIVE) Hep Bs Antigen Negative (NEGATIVE) Hep B Core IgM Ab Negative (NEGATIVE) Hepatitis C Antibody Negative (NEGATIVE) Crossmatch BBK History Checked Laboratory Results - last 24 hr 02/06/18 02/07/18 02/07/18 05:00 15:41 17:25 WBC RBC Hgb Hct MCV MCH MCHC RDW Plt Count MPV Gran % Lymph % (Auto) Ray % (Auto) Eos % (Auto) Baso % (Auto) Gran # Lymph # (Auto) Ray # (Auto) Eos # (Auto) Baso # (Auto) PT INR APTT 60.5 H pCO2 pO2 HCO3 ABG pH ABG Total CO2 ABG O2 Saturation ABG Base Excess ABG Potassium Glucose Lactate FiO2 Sodium Potassium Chloride Carbon Dioxide Anion Gap BUN Creatinine Est GFR ( Amer) Est GFR (Non-Af Amer) POC Glucose (mg/dL) 154 H Random Glucose Calcium Phosphorus Magnesium Total Bilirubin AST ALT Alkaline Phosphatase Total Protein Albumin Globulin Albumin/Globulin Ratio Arterial Blood Potassium Hepatitis A IgM Ab Negative Hep Bs Antigen Negative Hep B Core IgM Ab Negative Hepatitis C Antibody Negative Crossmatch BBK History Checked 02/07/18 02/07/18 02/08/18 23:05 23:05 00:52 WBC RBC Hgb Hct MCV MCH MCHC RDW Plt Count MPV Gran % Lymph % (Auto) Ray % (Auto) Eos % (Auto) Baso % (Auto) Gran # Lymph # (Auto) Ray # (Auto) Eos # (Auto) Baso # (Auto) PT INR APTT 44.6 H pCO2 pO2 HCO3 ABG pH ABG Total CO2 ABG O2 Saturation ABG Base Excess ABG Potassium Glucose Lactate FiO2 Sodium 143 Potassium 4.3 Chloride 109 H Carbon Dioxide 26 Anion Gap 11 BUN 28 H Creatinine 1.0 Est GFR ( Amer) > 60 Est GFR (Non-Af Amer) > 60 POC Glucose (mg/dL) 131 H Random Glucose 118 H Calcium 7.5 L Phosphorus 2.7 Magnesium 2.3 H Total Bilirubin 0.5 AST 38 ALT 57 H Alkaline Phosphatase 41 Total Protein 5.2 L Albumin 2.6 L Globulin 2.6 Albumin/Globulin Ratio 1.0 L Arterial Blood Potassium Hepatitis A IgM Ab Hep Bs Antigen Hep B Core IgM Ab Hepatitis C Antibody Crossmatch BBK History Checked 02/08/18 02/08/18 02/08/18 05:30 05:30 05:30 WBC 11.4 H RBC 3.44 L Hgb 10.1 L Hct 29.9 L MCV 86.9 MCH 29.4 MCHC 33.8 RDW 14.8 H Plt Count 110 L MPV 10.8 Gran % 68.3 H Lymph % (Auto) 22.6 Ray % (Auto) 8.2 H Eos % (Auto) 0.8 L Baso % (Auto) 0.1 Gran # 7.81 H Lymph # (Auto) 2.6 Ray # (Auto) 0.9 H Eos # (Auto) 0.1 Baso # (Auto) 0.01 PT INR APTT pCO2 41 pO2 75.0 L HCO3 26.6 ABG pH 7.42 ABG Total CO2 27.9 ABG O2 Saturation 97.1 ABG Base Excess 1.9 ABG Potassium 4.1 Glucose 131 H Lactate 0.9 FiO2 35.0 Sodium 141 142.0 Potassium 4.3 Chloride 110 H 115.0 H Carbon Dioxide 26 Anion Gap 10 BUN 27 H Creatinine 1.0 Est GFR ( Amer) > 60 Est GFR (Non-Af Amer) > 60 POC Glucose (mg/dL) Random Glucose 133 H Calcium 7.6 L Phosphorus 2.5 Magnesium 2.3 H Total Bilirubin 0.5 AST 38 ALT 55 Alkaline Phosphatase 44 Total Protein 5.3 L Albumin 2.8 L Globulin 2.5 Albumin/Globulin Ratio 1.1 Arterial Blood Potassium 4.1 Hepatitis A IgM Ab Hep Bs Antigen Hep B Core IgM Ab Hepatitis C Antibody Crossmatch BBK History Checked 02/08/18 02/08/18 02/08/18 05:30 11:25 11:45 WBC RBC Hgb Hct MCV MCH MCHC RDW Plt Count MPV Gran % Lymph % (Auto) Ray % (Auto) Eos % (Auto) Baso % (Auto) Gran # Lymph # (Auto) Ray # (Auto) Eos # (Auto) Baso # (Auto) PT 12.9 H INR 1.12 H APTT 91.4 H pCO2 pO2 HCO3 ABG pH ABG Total CO2 ABG O2 Saturation ABG Base Excess ABG Potassium Glucose Lactate FiO2 Sodium Potassium Chloride Carbon Dioxide Anion Gap BUN Creatinine Est GFR ( Amer) Est GFR (Non-Af Amer) POC Glucose (mg/dL) 100 Random Glucose Calcium Phosphorus Magnesium Total Bilirubin AST ALT Alkaline Phosphatase Total Protein Albumin Globulin Albumin/Globulin Ratio Arterial Blood Potassium Hepatitis A IgM Ab Hep Bs Antigen Hep B Core IgM Ab Hepatitis C Antibody Crossmatch BBK History Checked 02/08/18 11:45 WBC RBC Hgb Hct MCV MCH MCHC RDW Plt Count MPV Gran % Lymph % (Auto) Ray % (Auto) Eos % (Auto) Baso % (Auto) Gran # Lymph # (Auto) Ray # (Auto) Eos # (Auto) Baso # (Auto) PT INR APTT pCO2 pO2 HCO3 ABG pH ABG Total CO2 ABG O2 Saturation ABG Base Excess ABG Potassium Glucose Lactate FiO2 Sodium Potassium Chloride Carbon Dioxide Anion Gap BUN Creatinine Est GFR ( Amer) Est GFR (Non-Af Amer) POC Glucose (mg/dL) Random Glucose Calcium Phosphorus Magnesium Total Bilirubin AST ALT Alkaline Phosphatase Total Protein Albumin Globulin Albumin/Globulin Ratio Arterial Blood Potassium Hepatitis A IgM Ab Hep Bs Antigen Hep B Core IgM Ab Hepatitis C Antibody Crossmatch See Detail BBK History Checked No verified bt Attending/Attestation - Attestation I have personally seen and examined this patient.: Yes I have fully participated in the care of the patient.: Yes I have reviewed all pertinent clinical information: Yes Notes (Text): 02/08/18 12:52 The patient was seen and examined at the bedside. Patient care was discussed with resident Medical records, lab studies were reviewed and management issues were discussed and formulated. Last 24H events reviewed. Agree with above treatment plans as outlined in 's note with addition of the following: Cardiopulmonary Arrest \ Acute Respiratory Failure \ Hypoxemia \Cardiogenic Shock \ Septic Shock \ PNA \ Seizures \ Anoxic Brain injury \ CHF \ ro GIB -hemodynamic monitoring to maintain MAP>65; continue Asa, statin; cardiology team following; d\c Heparin drip, no plan for PCI at this time -mechanical ventilation to maintain Spo2>90 Pao2>60; current mode PRVC -monitor for TV 6ml\kg IBW and plateau pressure <30 -ABG reviewed and CXR reviewed; Fio2 at 35% and Peep at 10; breathing trial once oxygenation and mental status improve -continue nebs and steroids -Continue broad spectrum Abx as per ID team and f\u cultures -f\u Bun\Cr and U\o -increase antiseizure meds as per neurology team and f\u repeat EEG results and repeat CT head; seizure precautions and Ativan PRN -decrease Propofol and versed drip to assess neuro status of the patient -NPO and continue aspiration precautions -coffee ground emesis noted; GI team following; continue PPI; monitor serial H\ H and for bleed; heparin drip held -DVT \ PUD prophylaxis -consider palliation team eval CCM time 36min
[2018-02-08] MEDS: Midazolam 100 mg/100ml in NS 100 MG/100 ML SOL IV PRN (08:21)
[2018-02-08] MEDS: levETIRAcetam 1,000 MG in Sodium Chloride 0.9% 100 ML IV SCH (09:56)
[2018-02-08] MEDS: Cefepime IV 2 gm in NS 2 GM/100 ML BAG IVPB SCH ×2 (09:57→23:25)
--- NOTE | 2018-02-08 10:00 | RAD ---
HISTORY: intubated COMPARISON: 02/07/2018 FINDINGS: LUNGS: Moderate vascular congestion and minimal infiltrate at the right lung base. Findings are unchanged. PLEURA: No significant pleural effusion identified, no pneumothorax apparent. CARDIOVASCULAR: Normal. OSSEOUS STRUCTURES: No significant abnormalities. VISUALIZED UPPER ABDOMEN: Normal. OTHER FINDINGS: Central lines and tubes unchanged IMPRESSION: Moderate vascular congestion and minimal infiltrate at the right lung base. Findings are unchanged.
[2018-02-08 10:17] LABS: HEPATITIS B SURFACE AG Negative (NEGATIVE)
[2018-02-08 10:23] LABS: HEPATITIS A IGM NEGATIVE (NEGATIVE); HEPATITIS B CORE AB NEGATIVE (NEGATIVE)
[2018-02-08 10:33] LABS: HEPATITIS C ANTIBODY NEGATIVE (NEGATIVE)
--- NOTE | 2018-02-08 11:20 | CT ---
PROCEDURE: CT HEAD WITHOUT CONTRAST. HISTORY: brain edema COMPARISON: 02/04/2018 TECHNIQUE: Axial computed tomography images were obtained through the head/brain without intravenous contrast. Radiation dose: Total exam DLP = 915 mGy-cm. This CT exam was performed using one or more of the following dose reduction techniques: Automated exposure control, adjustment of the mA and/or kV according to patient size, and/or use of iterative reconstruction technique. FINDINGS: HEMORRHAGE: No intracranial hemorrhage. BRAIN: No mass effect or edema. No atrophy or chronic microvascular ischemic changes. VENTRICLES: Unremarkable. No hydrocephalus. CALVARIUM: Unremarkable. PARANASAL SINUSES: Unremarkable as visualized. No significant inflammatory changes. MASTOID AIR CELLS: Unremarkable as visualized. No inflammatory changes. OTHER FINDINGS: None. IMPRESSION: No acute findings
[2018-02-08] MEDS ORDERED: levETIRAcetam 500 MG in Sodium Chloride 0.9% 100 ML IV STA (11:28)
[2018-02-08] MEDS ORDERED: levETIRAcetam 500mg IVPB 500 MG/100 ML BAG IV STA (11:33)
--- NOTE | 2018-02-08 11:34 | CP.PCM.PN ---
<Shiva Burt - Last Filed: 02/08/18 13:31> Subjective - Date & Time of Evaluation Date of Evaluation: 02/08/18 Time of Evaluation: 05:30 - Subjective Subjective: Patient seen and examined at bedside. Patient currently intubated and sedated. ROS not obtained due to sedation. From nursing staff patient had no seizures overnight, no bowel movements, however has bilious stomach output around 200 cc. Objective - Vital Signs/Intake and Output Vital Signs (last 24 hours): Temp Pulse Resp BP Pulse Ox 97.9 F 68 58 H 146/58 L 95 02/08/18 07:40 02/08/18 07:40 02/08/18 06:03 02/08/18 10:02 02/08/18 07:40 Intake and Output: 02/08/18 02/08/18 06:59 18:59 Intake Total 1324 94 Output Total 700 Balance 624 94 - Medications Medications: Current Medications Albuterol/Ipratropium (Duoneb 3 Mg/0.5 Mg (3 Ml) Ud) 3 ml IH [id number] PRN PRN Reason: Shortness of Breath Last Admin: 02/07/18 13:13 Dose: 3 ml Artificial Tears (Artificial Tears) 0 ml OU Q8 PRN PRN Reason: Dry eyes Last Admin: 02/07/18 08:40 Dose: 2 drop Aspirin (Aspirin Chewable) 81 mg PO DAILY COUNTS INCLUDE 234 BEDS AT THE [facility] Last Admin: 02/08/18 09:59 Dose: 81 mg Atorvastatin Calcium (Lipitor) 40 mg PO DIN COUNTS INCLUDE 234 BEDS AT THE [facility] Last Admin: 02/07/18 18:07 Dose: 40 mg Furosemide (Lasix) 40 mg IVP DAILY COUNTS INCLUDE 234 BEDS AT THE [facility] Last Admin: 02/08/18 10:02 Dose: 40 mg Hydrocortisone Sodium Succinate (Solu-Cortef) 25 mg IVP Q8 DAMON Propofol (Diprivan) 1,000 mg in 100 mls @ 3.538 mls/hr IV .Q24H PRN; Protocol; 5 MCG/KG/MIN PRN Reason: TITRATE PER MD ORDER Last Admin: 02/08/18 06:42 Dose: 20 mcg/kg/min, 14.152 mls/hr Cefepime HCl (Maxipime 2gm) 2 gm in 100 mls @ 100 mls/hr IVPB Q12 DAMON PRN Reason: Protocol Stop: 02/09/18 10:01 Last Admin: 02/08/18 09:57 Dose: 100 mls/hr Pantoprazole Sodium (Protonix 40mg Ivpb) 40 mg in 100 mls @ 20 mls/hr IVPB .Q5H DAMON Last Admin: 02/08/18 07:47 Dose: 20 mls/hr Milrinone Lactate/Dextrose (Primacor 20mg/100ml D5w) 100 mls @ 13.268 mls/hr IV .Q7H33M PRN; Protocol; 0.375 MCG/KG/MIN PRN Reason: TITRATE PER MD ORDER Last Admin: 02/08/18 01:35 Dose: 0.375 mcg/kg/min, 13.268 mls/hr NOREPINEPHRINE BIT/0.9 % NACL (Levophed 4 Mg/ 250 Ml Ns Premixed) 4 mg in 250 mls @ 15 mls/hr IV .[id number] PRN; Protocol; 4 MCG/MIN PRN Reason: TITRATE PER MD ORDER Last Titration: 02/04/18 18:00 Dose: 0 mcg/min, 0 mls/hr Midazolam 100 mg/100ml in NS (Midazolam 100 Mg/100ml In Ns) 100 mg in 100 mls @ 1 mls/hr IV .Q24H PRN; Protocol; 1 MG/HR PRN Reason: Sedation Last Admin: 02/08/18 08:21 Dose: 5 mg/hr, 5 mls/hr Fentanyl Citrate (Fentanyl Citrate/Sodium Chloride 1 Mg/100 Ml) 1,000 mcg in 100 mls @ 2 mls/hr IV .Q24H PRN; Protocol; 20 MCG/HR PRN Reason: TITRATE PER MD ORDER Last Admin: 02/08/18 06:53 Dose: 60 mcg/hr, 6 mls/hr Doxycycline Hyclate 100 mg/ (Sodium Chloride) 100 mls @ 100 mls/hr IVPB Q12 DAMON PRN Reason: Protocol Last Admin: 02/08/18 09:57 Dose: 100 mls/hr Levetiracetam 1,000 mg/ Sodium (Chloride) 110 mls @ 430 mls/hr IV Q12 DAMON Last Admin: 02/08/18 09:56 Dose: 430 mls/hr Insulin Human Regular (Humulin R Med) 0 units SC Q6 DAMON PRN Reason: Protocol Last Admin: 02/08/18 06:00 Dose: Not Given Lorazepam (Ativan) 1 mg IVP Q6H PRN; Protocol PRN Reason: Seizure activity Last Admin: 02/06/18 14:28 Dose: 1 mg - Labs Labs: 02/08/18 05:30 02/08/18 05:30 PT 14.4 SECONDS (9.4-12.5) H 02/05/18 22:05 INR 1.26 (0.93-1.08) H 02/05/18 22:05 APTT 91.4 Seconds (25.1-36.5) H 02/08/18 05:30 - Head Exam Head Exam: ATRAUMATIC, NORMAL INSPECTION, NORMOCEPHALIC - ENT Exam ENT Exam: Mucous Membranes Moist - Respiratory Exam Respiratory Exam: Rhonchi (diffuse). absent: NORMAL BREATHING PATTERN ( intubated) - Cardiovascular Exam Cardiovascular Exam: REGULAR RHYTHM, +S1, +S2 - GI/Abdominal Exam GI & Abdominal Exam: Soft, Normal Bowel Sounds - Extremities Exam Extremities Exam: Normal Inspection - Neurological Exam Neurological Exam: absent: Alert, Awake, Oriented x3 Additional comments: sedated - Psychiatric Exam Additional comments: sedated - Skin Skin Exam: Normal Color, Warm Assessment and Plan - Assessment and Plan (Free Text) Assessment: 57 year old male with history of CAD s/p CABG and 4 stents, hypertension, thyroid disease, and tobacco abuse presenting s/p cardiac arrest secondary to a cardiac event (possible posterior wall infarct) presenting with cardiogenic shock and anoxic encephalopathy Plan: Cardiac Arrest - Etiology suspected to be 2/2 ventricular fibrillation - EKG reveals ST-T segments findings consistent with ischemia, possible inferior wall ND, intraventricular conduction delay evidenced by EKG and cardiac enzyme elevation - Echocardiogram reveals EF 20-25% with septum and apex severly hypokinetic. 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 Repeat CT head reveals no acute findings - Initial EEG reveals very low amplitude rhythm with no normal posterior dominant rhythm. No interictal epileptiform discharges. No seizure. EEG is abnormal. - Currently sedated, seizure precaution - As per neuro: increase keppra from 70 mg IVPB q 12 to 1500mg IVPB Q 12 and additional depakote at 100 mg IVPB q 12 first dose Leukocytosis - ID consulted and following - Continue with broad spectrum antibiotics(cefepime and doxycycline) - Follow up with blood cultures: no growth after 72 hours - Urine culture final resulted in no growth - MRSA screen negative Possible Lower GI bleed - Drop in H/H however stable - Possibly due to traumatic insertion - OG tube on intermittent suction; bilious drainage - GI on consult; f/u with recommendations GI/DVT ppx - Protonix gtt - Heparin gtt Case and Plan discussed with attending <Hank Ramírez - Last Filed: 02/08/18 16:20> Objective - Vital Signs/Intake and Output Vital Signs (last 24 hours): Temp Pulse Resp BP Pulse Ox 99.5 F 89 26 H 111/52 L 94 L 02/08/18 15:30 02/08/18 15:30 02/08/18 15:30 02/08/18 15:30 02/08/18 15:30 Intake and Output: 02/08/18 02/08/18 06:59 18:59 Intake Total 1324 379.2 Output Total 700 Balance 624 379.2 - Medications Medications: Current Medications Albuterol/Ipratropium (Duoneb 3 Mg/0.5 Mg (3 Ml) Ud) 3 ml IH [id number] PRN PRN Reason: Shortness of Breath Last Admin: 02/07/18 13:13 Dose: 3 ml Artificial Tears (Artificial Tears) 0 ml OU Q8 PRN PRN Reason: Dry eyes Last Admin: 02/07/18 08:40 Dose: 2 drop Aspirin (Aspirin Chewable) 81 mg PO DAILY COUNTS INCLUDE 234 BEDS AT THE [facility] Last Admin: 02/08/18 09:59 Dose: 81 mg Atorvastatin Calcium (Lipitor) 40 mg PO DIN COUNTS INCLUDE 234 BEDS AT THE [facility] Last Admin: 02/07/18 18:07 Dose: 40 mg Furosemide (Lasix) 40 mg IVP DAILY DAMON Last Admin: 02/08/18 10:02 Dose: 40 mg Hydrocortisone Sodium Succinate (Solu-Cortef) 25 mg IVP Q8 DAMON Propofol (Diprivan) 1,000 mg in 100 mls @ 3.538 mls/hr IV .Q24H PRN; Protocol; 5 MCG/KG/MIN PRN Reason: TITRATE PER MD ORDER Last Admin: 02/08/18 13:46 Dose: 20 mcg/kg/min, 14.152 mls/hr Cefepime HCl (Maxipime 2gm) 2 gm in 100 mls @ 100 mls/hr IVPB Q12 DAMON PRN Reason: Protocol Stop: 02/09/18 10:01 Last Admin: 02/08/18 09:57 Dose: 100 mls/hr Midazolam 100 mg/100ml in NS (Midazolam 100 Mg/100ml In Ns) 100 mg in 100 mls @ 1 mls/hr IV .Q24H PRN; Protocol; 1 MG/HR PRN Reason: Sedation Last Titration: 02/08/18 14:49 Dose: 0 mg/hr, 0 mls/hr Fentanyl Citrate (Fentanyl Citrate/Sodium Chloride 1 Mg/100 Ml) 1,000 mcg in 100 mls @ 2 mls/hr IV .Q24H PRN; Protocol; 20 MCG/HR PRN Reason: TITRATE PER MD ORDER Last Titration: 02/08/18 15:40 Dose: 20 mcg/hr, 2 mls/hr Doxycycline Hyclate 100 mg/ (Sodium Chloride) 100 mls @ 100 mls/hr IVPB Q12 DAMON PRN Reason: Protocol Last Admin: 02/08/18 09:57 Dose: 100 mls/hr Levetiracetam 1,500 mg/ Sodium (Chloride) 115 mls @ 460 mls/hr IV Q12 DAMON Valproate Sodium 1,000 mg/ (Sodium Chloride) 110 mls @ 100 mls/hr IVPB Q12 DAMON Last Admin: 02/08/18 12:43 Dose: 100 mls/hr Insulin Human Regular (Humulin R Med) 0 units SC Q6 DAMON PRN Reason: Protocol Last Admin: 02/08/18 15:41 Dose: Not Given Lorazepam (Ativan) 1 mg IVP Q6H PRN; Protocol PRN Reason: Seizure activity Last Admin: 02/06/18 14:28 Dose: 1 mg Pantoprazole Sodium (Protonix Inj) 40 mg IVP Q12 DAMON - Labs Labs: 02/08/18 05:30 02/08/18 05:30 PT 12.9 SECONDS (9.4-12.5) H 02/08/18 11:45 INR 1.12 (0.93-1.08) H 02/08/18 11:45 APTT 91.4 Seconds (25.1-36.5) H 02/08/18 05:30 Attending/Attestation - Attestation I have personally seen and examined this patient.: Yes I have fully participated in the care of the patient.: Yes I have reviewed all pertinent clinical information, including history, physical exam and plan: Yes Notes (Text): 02/08/18 16:16 Medical record note made by the resident after discussion with my direction and input after the patient was personally seen and examined by me. I have reviewed the chart and agree that the record accurately reflects by personal performance of the history, physical exam, data review, and medical decision-making, in the course for the patient. I have also personally directed the plan of care. 57 yrs old male with PMHx of CAD , SP CABG , HTN, hypothyroidism, had Vfib arrest in the field,patient was coded for about 10 mins and Intubated. Patient is s/p hypothermic protocol and s/p rewarming. Echo showed EF 25% on Milrinone drip.Patient blood pressure is running on lower side, on pressor.Patient is afebrile, on IV antibiotics as per ID.Cultures are negative Mental status cannot fully asses as patient is sedated.Initial EEG reveals very low amplitude rhythm with no normal posterior dominant rhythm. No interictal epileptiform discharges. EEG is abnormal. , repeat EEG is pending.Repeat CT head today is unremarkable.Patient is on Keppra for seizure. Prognosis is guarded Management plan was discussed with family who was at bed side 02/08/18 16:19
--- NOTE | 2018-02-08 11:48 | CP.PCM.PN ---
Subjective - Date & Time of Evaluation Date of Evaluation: 02/08/18 Time of Evaluation: 11:48 - Subjective Subjective: Mr. Armenta was seen and examined at the bedside in ICU. He remains on mechanical ventilator on PRVC mode with GCS 3T.. He is currently receiving propofol, and fentanyl for sedation with pupils pinpoint and no corneal and gag reflex, but occasional breaths over the set vent settings. He is also receiving a milrinone. The patient had a breakthrough seizures when attempted to reduce sedation. Objective - Vital Signs/Intake and Output Vital Signs (last 24 hours): Temp Pulse Resp BP Pulse Ox 97.9 F 68 58 H 146/58 L 95 02/08/18 07:40 02/08/18 07:40 02/08/18 06:03 02/08/18 10:02 02/08/18 07:40 Intake and Output: 02/08/18 02/08/18 06:59 18:59 Intake Total 1324 94 Output Total 700 Balance 624 94 - Medications Medications: Current Medications Albuterol/Ipratropium (Duoneb 3 Mg/0.5 Mg (3 Ml) Ud) 3 ml IH [id number] PRN PRN Reason: Shortness of Breath Last Admin: 02/07/18 13:13 Dose: 3 ml Artificial Tears (Artificial Tears) 0 ml OU Q8 PRN PRN Reason: Dry eyes Last Admin: 02/07/18 08:40 Dose: 2 drop Aspirin (Aspirin Chewable) 81 mg PO DAILY [facility] Last Admin: 02/08/18 09:59 Dose: 81 mg Atorvastatin Calcium (Lipitor) 40 mg PO DIN [facility] Last Admin: 02/07/18 18:07 Dose: 40 mg Furosemide (Lasix) 40 mg IVP DAILY [facility] Last Admin: 02/08/18 10:02 Dose: 40 mg Hydrocortisone Sodium Succinate (Solu-Cortef) 25 mg IVP Q8 DAMON Propofol (Diprivan) 1,000 mg in 100 mls @ 3.538 mls/hr IV .Q24H PRN; Protocol; 5 MCG/KG/MIN PRN Reason: TITRATE PER MD ORDER Last Admin: 02/08/18 06:42 Dose: 20 mcg/kg/min, 14.152 mls/hr Cefepime HCl (Maxipime 2gm) 2 gm in 100 mls @ 100 mls/hr IVPB Q12 DAMON PRN Reason: Protocol Stop: 02/09/18 10:01 Last Admin: 02/08/18 09:57 Dose: 100 mls/hr Pantoprazole Sodium (Protonix 40mg Ivpb) 40 mg in 100 mls @ 20 mls/hr IVPB .Q5H DAMON Last Admin: 02/08/18 07:47 Dose: 20 mls/hr Milrinone Lactate/Dextrose (Primacor 20mg/100ml D5w) 100 mls @ 13.268 mls/hr IV .Q7H33M PRN; Protocol; 0.375 MCG/KG/MIN PRN Reason: TITRATE PER MD ORDER Last Admin: 02/08/18 01:35 Dose: 0.375 mcg/kg/min, 13.268 mls/hr NOREPINEPHRINE BIT/0.9 % NACL (Levophed 4 Mg/ 250 Ml Ns Premixed) 4 mg in 250 mls @ 15 mls/hr IV .[id number] PRN; Protocol; 4 MCG/MIN PRN Reason: TITRATE PER MD ORDER Last Titration: 02/04/18 18:00 Dose: 0 mcg/min, 0 mls/hr Midazolam 100 mg/100ml in NS (Midazolam 100 Mg/100ml In Ns) 100 mg in 100 mls @ 1 mls/hr IV .Q24H PRN; Protocol; 1 MG/HR PRN Reason: Sedation Last Admin: 02/08/18 08:21 Dose: 5 mg/hr, 5 mls/hr Fentanyl Citrate (Fentanyl Citrate/Sodium Chloride 1 Mg/100 Ml) 1,000 mcg in 100 mls @ 2 mls/hr IV .Q24H PRN; Protocol; 20 MCG/HR PRN Reason: TITRATE PER MD ORDER Last Admin: 02/08/18 06:53 Dose: 60 mcg/hr, 6 mls/hr Doxycycline Hyclate 100 mg/ (Sodium Chloride) 100 mls @ 100 mls/hr IVPB Q12 DAMON PRN Reason: Protocol Last Admin: 02/08/18 09:57 Dose: 100 mls/hr Levetiracetam 1,500 mg/ Sodium (Chloride) 115 mls @ 460 mls/hr IV Q12 DAMON Insulin Human Regular (Humulin R Med) 0 units SC Q6 DAMON PRN Reason: Protocol Last Admin: 02/08/18 06:00 Dose: Not Given Lorazepam (Ativan) 1 mg IVP Q6H PRN; Protocol PRN Reason: Seizure activity Last Admin: 02/06/18 14:28 Dose: 1 mg - Labs Labs: 02/08/18 05:30 02/08/18 05:30 PT 14.4 SECONDS (9.4-12.5) H 02/05/18 22:05 INR 1.26 (0.93-1.08) H 02/05/18 22:05 APTT 91.4 Seconds (25.1-36.5) H 02/08/18 05:30 - Constitutional Appears: No Acute Distress - Head Exam Head Exam: NORMAL INSPECTION - Eye Exam Pupil Exam: Fixed Additional comments: 2 mm non reactive - Neurological Exam Neuro motor strength exam: Left Upper Extremity: 0, Right Upper Extremity: 0, Left Lower Extremity: 0, Right Lower Extremity: 0 Additional comments: GCS-3T Assessment and Plan (1) Anoxic brain injury Assessment & Plan: Case discussed with Dr. Pacheco, continue current medical regimen with changes with AED such as increase keppra from 70 mg IVPB q 12 to 1500mg IVPB Q 12 and additional depakote at 100 mg IVPB q 12 first dose now. If the total kepra is 1500 mg and depakote 100 mg was already given to start on sedation vacation. Pending EEG today.Pending CT scan of the head results. Recommend to treat any electrolyte abnormalities, keep head of bed elevated at least 30 degrees. Status: Acute
[2018-02-08 12:13] LABS: INR 1.12 (0.93-1.08); PROTHROMBIN TIME 12.9 SECONDS (9.4-12.5)
[2018-02-08] MEDS: Valproate 1,000 MG in Sodium Chloride 0.9% 100 ML IVPB SCH ×2 (12:43→22:30)
--- NOTE | 2018-02-08 13:23 | CP.PCM.PN ---
Subjective - Date & Time of Evaluation Date of Evaluation: 02/08/18 Time of Evaluation: 10:00 - Subjective Subjective: Patient continues to be on the ventilator, sedated, not responsive, no fevers. Objective - Vital Signs/Intake and Output Vital Signs (last 24 hours): Temp Pulse Resp BP Pulse Ox 97.9 F 68 58 H 122/56 L 95 02/08/18 07:40 02/08/18 07:40 02/08/18 06:03 02/08/18 08:47 02/08/18 07:40 Intake and Output: 02/08/18 02/08/18 06:59 18:59 Intake Total 1324 94 Output Total 700 Balance 624 94 - Medications Medications: Current Medications Albuterol/Ipratropium (Duoneb 3 Mg/0.5 Mg (3 Ml) Ud) 3 ml IH [id number] PRN PRN Reason: Shortness of Breath Last Admin: 02/07/18 13:13 Dose: 3 ml Artificial Tears (Artificial Tears) 0 ml OU Q8 PRN PRN Reason: Dry eyes Last Admin: 02/07/18 08:40 Dose: 2 drop Aspirin (Aspirin Chewable) 81 mg PO DAILY [facility] Last Admin: 02/07/18 10:18 Dose: 81 mg Atorvastatin Calcium (Lipitor) 40 mg PO DIN [facility] Last Admin: 02/07/18 18:07 Dose: 40 mg Furosemide (Lasix) 40 mg IVP DAILY [facility] Last Admin: 02/08/18 08:47 Dose: 40 mg Hydrocortisone Sodium Succinate (Solu-Cortef) 25 mg IVP Q8 DAMON Propofol (Diprivan) 1,000 mg in 100 mls @ 3.538 mls/hr IV .Q24H PRN; Protocol; 5 MCG/KG/MIN PRN Reason: TITRATE PER MD ORDER Last Admin: 02/08/18 06:42 Dose: 20 mcg/kg/min, 14.152 mls/hr Cefepime HCl (Maxipime 2gm) 2 gm in 100 mls @ 100 mls/hr IVPB Q12 DAMON PRN Reason: Protocol Stop: 02/09/18 10:01 Last Admin: 02/07/18 22:43 Dose: 100 mls/hr Pantoprazole Sodium (Protonix 40mg Ivpb) 40 mg in 100 mls @ 20 mls/hr IVPB .Q5H DAMON Last Admin: 02/08/18 07:47 Dose: 20 mls/hr Milrinone Lactate/Dextrose (Primacor 20mg/100ml D5w) 100 mls @ 13.268 mls/hr IV .Q7H33M PRN; Protocol; 0.375 MCG/KG/MIN PRN Reason: TITRATE PER MD ORDER Last Admin: 02/08/18 01:35 Dose: 0.375 mcg/kg/min, 13.268 mls/hr Heparin Sodium/Sodium Chloride (Heparin 15137 Units/250ml 1/2 Normal Saline) 25 ,000 units in 250 mls @ 14.152 mls/hr IV .[id number] DAMON; 12 UNITS/KG/HR PRN Reason: Protocol Last Admin: 02/07/18 23:26 Dose: 8 units/kg/hr, 9.435 mls/hr NOREPINEPHRINE BIT/0.9 % NACL (Levophed 4 Mg/ 250 Ml Ns Premixed) 4 mg in 250 mls @ 15 mls/hr IV .[id number] PRN; Protocol; 4 MCG/MIN PRN Reason: TITRATE PER MD ORDER Last Titration: 02/04/18 18:00 Dose: 0 mcg/min, 0 mls/hr Midazolam 100 mg/100ml in NS (Midazolam 100 Mg/100ml In Ns) 100 mg in 100 mls @ 1 mls/hr IV .Q24H PRN; Protocol; 1 MG/HR PRN Reason: Sedation Last Admin: 02/08/18 08:21 Dose: 5 mg/hr, 5 mls/hr Fentanyl Citrate (Fentanyl Citrate/Sodium Chloride 1 Mg/100 Ml) 1,000 mcg in 100 mls @ 2 mls/hr IV .Q24H PRN; Protocol; 20 MCG/HR PRN Reason: TITRATE PER MD ORDER Last Admin: 02/08/18 06:53 Dose: 60 mcg/hr, 6 mls/hr Doxycycline Hyclate 100 mg/ (Sodium Chloride) 100 mls @ 100 mls/hr IVPB Q12 DAMON PRN Reason: Protocol Last Admin: 02/07/18 23:38 Dose: 100 mls/hr Levetiracetam 1,000 mg/ Sodium (Chloride) 110 mls @ 430 mls/hr IV Q12 DAMON Last Admin: 02/07/18 22:03 Dose: 430 mls/hr Insulin Human Regular (Humulin R Med) 0 units SC Q6 DAMON PRN Reason: Protocol Last Admin: 02/08/18 06:00 Dose: Not Given Lorazepam (Ativan) 1 mg IVP Q6H PRN; Protocol PRN Reason: Seizure activity Last Admin: 02/06/18 14:28 Dose: 1 mg - Labs Labs: 02/08/18 05:30 02/08/18 05:30 PT 14.4 SECONDS (9.4-12.5) H 02/05/18 22:05 INR 1.26 (0.93-1.08) H 02/05/18 22:05 APTT 91.4 Seconds (25.1-36.5) H 02/08/18 05:30 - Constitutional Appears: Chronically Ill - Head Exam Head Exam: NORMAL INSPECTION - ENT Exam ENT Exam: Mucous Membranes Moist - Neck Exam Neck Exam: absent: Meningismus - Respiratory Exam Respiratory Exam: Decreased Breath Sounds - Cardiovascular Exam Cardiovascular Exam: +S1, +S2 - GI/Abdominal Exam GI & Abdominal Exam: Soft. absent: Tenderness Assessment and Plan - Assessment and Plan (Free Text) Plan: Assessment Systemic Inflammatory response syndrome, consider due to cardiac arrest etiology to be determined, R/O sepsis from aspiration pneumonitis CAD S/P CABG HTN thyroid disease significant smoking history Plan gave the patient a dose of IV Vancomycin and continue Cefepime day 5 and Doxycycline as well; blood, urine cx are negative; PCT is elevated but patient may have acute TX; reviewed CXR which is showing pulmonary edema but cannot rule out pneumonia; reviewed CT head showing possible hypoxic brain injury - follow up further Neurology recommendations - we are awaiting results of the repeat CT head and EEG follow up further Cardiology recommendations overall prognosis is poor will continue to monitor clinically discussed with ICU team today
--- NOTE | 2018-02-08 14:22 | PN ---
DATE: 02/08/2018 SUBJECTIVE: I have been asked to see this patient for dark return from his NG tube. The patient remained sedated and on the ventilator. He is on a Protonix drip as well as IV heparin. OBJECTIVE: VITAL SIGNS: Reveal blood pressure of 146/58, heart rate of 106. He is afebrile. HEENT: Reveal sclerae to be white. Conjunctivae pale. NECK: Supple. CHEST: Reveal scattered rhonchi. HEART: Exam reveals a mild tachycardia. ABDOMEN: Soft, nontender. EXTREMITIES: Show no edema. DATA: Laboratory data reveal white count 11.4; hemoglobin 10.1, hemoglobin yesterday was 10.9. Laboratory data reveal BUN 27 and creatinine 1. Yesterday's BUN was 28. Note his NG tube is on low continuous suction. IMPRESSION: 1. Dark fluid returned from nasogastric tube. His hemoglobin has been stable, the dark return may be as a result of some gastrointestinal bleeding from either stress gastritis or nasogastric tube trauma as the patient is on low continuous suction. There is no significant gastrointestinal bleeding here. 2. Respiratory failure. 3. Status post cardiac arrest secondary to ventricular fibrillation in the field. 4. Respiratory failure. 5. History of coronary artery disease with stents. RECOMMENDATIONS: 1. Continue to follow CBC. 2. No need for endoscopy at this point. 3. Continue IV Protonix 40 mg IV every 12 hours. 4. I will discuss this case with medical coding manager. Alexis Tinsley MD [email or web address]
--- NOTE | 2018-02-08 17:43 | CP.PCM.PN ---
Subjective - Date & Time of Evaluation Date of Evaluation: 02/08/18 Time of Evaluation: 11:00 - Subjective Subjective: Patient having seizures when withdrawing sedation; Objective - Vital Signs/Intake and Output Vital Signs (last 24 hours): Temp Pulse Resp BP Pulse Ox 99.5 F 89 26 H 111/52 L 94 L 02/08/18 15:30 02/08/18 15:30 02/08/18 15:30 02/08/18 15:30 02/08/18 15:30 Intake and Output: 02/08/18 02/08/18 06:59 18:59 Intake Total 1324 382.9 Output Total 700 Balance 624 382.9 - Medications Medications: Current Medications Albuterol/Ipratropium (Duoneb 3 Mg/0.5 Mg (3 Ml) Ud) 3 ml IH [id number] PRN PRN Reason: Shortness of Breath Last Admin: 02/07/18 13:13 Dose: 3 ml Artificial Tears (Artificial Tears) 0 ml OU Q8 PRN PRN Reason: Dry eyes Last Admin: 02/07/18 08:40 Dose: 2 drop Aspirin (Aspirin Chewable) 81 mg PO DAILY [facility] Last Admin: 02/08/18 09:59 Dose: 81 mg Atorvastatin Calcium (Lipitor) 40 mg PO DIN [facility] Last Admin: 02/07/18 18:07 Dose: 40 mg Furosemide (Lasix) 40 mg IVP DAILY [facility] Last Admin: 02/08/18 10:02 Dose: 40 mg Hydrocortisone Sodium Succinate (Solu-Cortef) 25 mg IVP Q8 DAMON Propofol (Diprivan) 1,000 mg in 100 mls @ 3.538 mls/hr IV .Q24H PRN; Protocol; 5 MCG/KG/MIN PRN Reason: TITRATE PER MD ORDER Last Admin: 02/08/18 13:46 Dose: 20 mcg/kg/min, 14.152 mls/hr Cefepime HCl (Maxipime 2gm) 2 gm in 100 mls @ 100 mls/hr IVPB Q12 DAMON PRN Reason: Protocol Stop: 02/09/18 10:01 Last Admin: 02/08/18 09:57 Dose: 100 mls/hr Midazolam 100 mg/100ml in NS (Midazolam 100 Mg/100ml In Ns) 100 mg in 100 mls @ 1 mls/hr IV .Q24H PRN; Protocol; 1 MG/HR PRN Reason: Sedation Last Titration: 02/08/18 14:49 Dose: 0 mg/hr, 0 mls/hr Fentanyl Citrate (Fentanyl Citrate/Sodium Chloride 1 Mg/100 Ml) 1,000 mcg in 100 mls @ 2 mls/hr IV .Q24H PRN; Protocol; 20 MCG/HR PRN Reason: TITRATE PER MD ORDER Last Titration: 02/08/18 16:24 Dose: 0 mcg/hr, 0 mls/hr Doxycycline Hyclate 100 mg/ (Sodium Chloride) 100 mls @ 100 mls/hr IVPB Q12 DAMON PRN Reason: Protocol Last Admin: 02/08/18 09:57 Dose: 100 mls/hr Levetiracetam 1,500 mg/ Sodium (Chloride) 115 mls @ 460 mls/hr IV Q12 DAMON Valproate Sodium 1,000 mg/ (Sodium Chloride) 110 mls @ 100 mls/hr IVPB Q12 [facility]ON Last Admin: 02/08/18 12:43 Dose: 100 mls/hr Insulin Human Regular (Humulin R Med) 0 units SC Q6 DAMON PRN Reason: Protocol Last Admin: 02/08/18 15:41 Dose: Not Given Lorazepam (Ativan) 1 mg IVP Q6H PRN; Protocol PRN Reason: Seizure activity Last Admin: 02/06/18 14:28 Dose: 1 mg Pantoprazole Sodium (Protonix Inj) 40 mg IVP Q12 DAMON - Labs Labs: 02/08/18 05:30 02/08/18 05:30 PT 12.9 SECONDS (9.4-12.5) H 02/08/18 11:45 INR 1.12 (0.93-1.08) H 02/08/18 11:45 APTT 91.4 Seconds (25.1-36.5) H 02/08/18 05:30 - Constitutional Appears: Non-toxic, No Acute Distress - Eye Exam Eye Exam: absent: Scleral icterus - ENT Exam ENT Exam: Mucous Membranes Moist - Respiratory Exam Respiratory Exam: Clear to Ausculation Bilateral. absent: Respiratory Distress - Cardiovascular Exam Cardiovascular Exam: absent: Gallop, Murmur - GI/Abdominal Exam GI & Abdominal Exam: Distended, Soft - Extremities Exam Additional comments: minimal leg edema; - Neurological Exam Neurological Exam: absent: Alert, Awake - Psychiatric Exam Psychiatric exam: absent: Agitated - Skin Skin Exam: Warm. absent: Cyanosis Assessment and Plan (1) Acute kidney injury Assessment & Plan: Resolved but decreased UO last 2 days; etiology unclear; agree with IV lasix to keep euvolemic; Status: Acute (2) CHF (congestive heart failure) Assessment & Plan: BP elevated; taken off milrinone later today; will need to watch for decreased end organ perfusion (eg. VANESA); Status: Acute
[2018-02-08] MEDS ORDERED: Nitroglycerin 2% Ointment Foilpak UD TOP ONE (19:40)
[2018-02-08] MEDS ORDERED: Labetalol 5 mg/ml Inj 20ML IV ONE (21:41)
[2018-02-08] MEDS: levETIRAcetam 1,500 MG in Sodium Chloride 0.9% 100 ML IV SCH (21:42)
[2018-02-09] MEDS: Albuterol-Ipratrop 3 mg / 0.5 (3 ml) UD IH PRN (03:30)
[2018-02-09] MEDS: Insulin Reg-MEDIUM-Coverage SC SCH ×5 (05:24→17:27)
[2018-02-09] MEDS: Propofol 10 mg/ml 1,000 MG/100 ML VIAL IV PRN ×2 (05:27→21:36)
[2018-02-09 06:51] LABS: BASO # 0.02 K/mm3 (0.0-2.0); BASO % 0.2 % (0.0-3.0); EOS # 0.2 (0.0-0.7); EOS % 1.6 % (1.5-5.0); GRAN # 6.09 (1.4-6.5); GRAN % 60.6 % (50.0-68.0); HEMOGLOBIN 10.9 g/dL (14.0-18.0); LYMPH # 2.6 (1.2-3.4); LYMPH % 26.1 % (22.0-35.0); MEAN CORPUSCULAR HEMOGLOBIN 29.1 pg (25.0-35.0); MEAN CORPUSCULAR HGB CONC 33.1 g/dl (31.0-37.0); MEAN PLATELET VOLUME 10.8 fl (7.0-11.0); MONO # 1.2 (0.1-0.6); MONO % 11.5 % (1.0-6.0); RBC 3.74 10^6/uL (3.5-6.1); RED CELL DISTRIBUTION WIDTH 14.8 % (11.5-14.5)
[2018-02-09 07:00] LABS: INR 1.14 (0.93-1.08); PARTIAL THROMBOPLASTIN TIME 22.5 Seconds (25.1-36.5); PROTHROMBIN TIME 13.1 SECONDS (9.4-12.5)
--- NOTE | 2018-02-09 07:09 | CP.PCM.PN ---
<Shiva Burt - Last Filed: 02/09/18 15:43> Subjective - Date & Time of Evaluation Date of Evaluation: 02/09/18 Time of Evaluation: 06:05 - Subjective Subjective: Patient seen and examined at bedside intubated and sedated on propofol. Patient is aware when he is being physically examined, moved upper and lower extremity, began opening his eyes. ROS not obtained due to intubation and sedation. Urine output > input. Objective - Vital Signs/Intake and Output Vital Signs (last 24 hours): Temp Pulse Resp BP Pulse Ox 100.4 F H 79 20 153/67 H 97 02/09/18 05:00 02/09/18 05:14 02/09/18 04:00 02/09/18 05:00 02/09/18 05:00 Intake and Output: 02/09/18 02/09/18 06:59 18:59 Intake Total 989.2 Output Total 3850 Balance -2860.8 - Medications Medications: Current Medications Albuterol/Ipratropium (Duoneb 3 Mg/0.5 Mg (3 Ml) Ud) 3 ml IH [id number] PRN PRN Reason: Shortness of Breath Last Admin: 02/09/18 03:30 Dose: 3 ml Artificial Tears (Artificial Tears) 0 ml OU Q8 PRN PRN Reason: Dry eyes Last Admin: 02/07/18 08:40 Dose: 2 drop Aspirin (Aspirin Chewable) 81 mg PO DAILY [facility] Last Admin: 02/08/18 09:59 Dose: 81 mg Atorvastatin Calcium (Lipitor) 40 mg PO DIN [facility] Last Admin: 02/08/18 17:54 Dose: 40 mg Furosemide (Lasix) 40 mg IVP DAILY [facility] Last Admin: 02/08/18 10:02 Dose: 40 mg Hydrocortisone Sodium Succinate (Solu-Cortef) 25 mg IVP Q8 [facility] Last Admin: 02/09/18 05:23 Dose: 25 mg Propofol (Diprivan) 1,000 mg in 100 mls @ 3.538 mls/hr IV .Q24H PRN; Protocol; 5 MCG/KG/MIN PRN Reason: TITRATE PER MD ORDER Last Admin: 02/09/18 05:27 Dose: 5 mcg/kg/min, 3.538 mls/hr Cefepime HCl (Maxipime 2gm) 2 gm in 100 mls @ 100 mls/hr IVPB Q12 [facility] PRN Reason: Protocol Stop: 02/09/18 10:01 Last Admin: 02/08/18 23:25 Dose: 100 mls/hr Midazolam 100 mg/100ml in NS (Midazolam 100 Mg/100ml In Ns) 100 mg in 100 mls @ 1 mls/hr IV .Q24H PRN; Protocol; 1 MG/HR PRN Reason: Sedation Last Titration: 02/08/18 14:49 Dose: 0 mg/hr, 0 mls/hr Fentanyl Citrate (Fentanyl Citrate/Sodium Chloride 1 Mg/100 Ml) 1,000 mcg in 100 mls @ 2 mls/hr IV .Q24H PRN; Protocol; 20 MCG/HR PRN Reason: TITRATE PER MD ORDER Last Titration: 02/08/18 16:24 Dose: 0 mcg/hr, 0 mls/hr Doxycycline Hyclate 100 mg/ (Sodium Chloride) 100 mls @ 100 mls/hr IVPB Q12 [facility] PRN Reason: Protocol Last Admin: 02/08/18 22:30 Dose: 100 mls/hr Levetiracetam 1,500 mg/ Sodium (Chloride) 115 mls @ 460 mls/hr IV Q12 [facility] Last Admin: 02/08/18 21:42 Dose: 460 mls/hr Valproate Sodium 1,000 mg/ (Sodium Chloride) 110 mls @ 100 mls/hr IVPB Q12 [facility] Last Admin: 02/08/18 22:30 Dose: 100 mls/hr Insulin Human Regular (Humulin R Med) 0 units SC Q6 [facility] PRN Reason: Protocol Last Admin: 02/09/18 05:42 Dose: Not Given Lorazepam (Ativan) 1 mg IVP Q6H PRN; Protocol PRN Reason: Seizure activity Last Admin: 02/06/18 14:28 Dose: 1 mg Pantoprazole Sodium (Protonix Inj) 40 mg IVP Q12 [facility] Last Admin: 02/08/18 21:29 Dose: 40 mg - Labs Labs: 02/08/18 05:30 02/08/18 05:30 PT 13.1 SECONDS (9.4-12.5) H 02/09/18 06:15 INR 1.14 (0.93-1.08) H 02/09/18 06:15 APTT 22.5 Seconds (25.1-36.5) L 02/09/18 06:15 - Head Exam Head Exam: ATRAUMATIC, NORMAL INSPECTION, NORMOCEPHALIC - Eye Exam Pupil Exam: PERRL. absent: Fixed - ENT Exam ENT Exam: Mucous Membranes Moist - Respiratory Exam Respiratory Exam: Clear to Ausculation Bilateral. absent: Rhonchi, NORMAL BREATHING PATTERN (intubated) - Cardiovascular Exam Cardiovascular Exam: REGULAR RHYTHM, +S1, +S2 - GI/Abdominal Exam GI & Abdominal Exam: Soft, Normal Bowel Sounds - Extremities Exam Extremities Exam: Normal Inspection Additional comments: pulses bounding - Back Exam Back Exam: NORMAL INSPECTION - Neurological Exam Neurological Exam: absent: Alert, Awake, Oriented x3 (sedated) - Skin Skin Exam: Normal Color, Warm Assessment and Plan - Assessment and Plan (Free Text) Assessment: 57 year old male with history of CAD s/p CABG and 4 stents, hypertension, thyroid disease, and tobacco abuse presenting s/p cardiac arrest secondary to a cardiac event (possible posterior wall infarct) presenting with cardiogenic shock. Plan: Cardiac Arrest - Etiology suspected to be 2/2 ventricular fibrillation - EKG reveals ST-T segments findings consistent with ischemia, possible inferior wall PA, intraventricular conduction delay evidenced by EKG and cardiac enzyme elevation - Echocardiogram reveals EF 20-25% with septum and apex severly hypokinetic. 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 Repeat CT head reveals no acute findings - Initial EEG reveals very low amplitude rhythm with no normal posterior dominant rhythm. No interictal epileptiform discharges. No seizure. EEG is abnormal. Repeat EEG read pending - Currently sedated, seizure precaution - As per neuro: will continue with 1500mg IVPB Q 12 and additional depakote at 100 mg IVPB q 12 Leukocytosis - ID consulted and following - Patient now febrile, as per ID: will start IV Vancomycin and continue Cefepime day 6 and Doxycycline - Repeat blood cultures, sputum cultures, urine cultures, and procalcitonin - Tylenol PRN for fever Hypertension - Carvedilol started considering patient's EF of 23% GI/DVT ppx - Protonix gtt - Heparin gtt Case and Plan discussed with attending <Hank Ramírez - Last Filed: 02/10/18 17:21> Objective - Vital Signs/Intake and Output Vital Signs (last 24 hours): Temp Pulse Resp BP Pulse Ox 99.7 F H 60 24 145/74 100 02/10/18 14:30 02/10/18 14:30 02/10/18 05:03 02/10/18 14:30 02/10/18 14:30 Intake and Output: 02/10/18 02/10/18 06:59 18:59 Intake Total 850 72 Output Total 1000 Balance -150 72 - Medications Medications: Current Medications Acetaminophen (Tylenol 325mg Tab) 650 mg PO Q6H PRN PRN Reason: Fever >100.4 F Last Admin: 02/09/18 10:36 Dose: 650 mg Albuterol/Ipratropium (Duoneb 3 Mg/0.5 Mg (3 Ml) Ud) 3 ml IH [id number] PRN PRN Reason: Shortness of Breath Last Admin: 02/10/18 13:13 Dose: 3 ml Artificial Tears (Artificial Tears) 0 ml OU Q8 PRN PRN Reason: Dry eyes Last Admin: 02/07/18 08:40 Dose: 2 drop Aspirin (Aspirin Chewable) 81 mg PO DAILY [facility] Last Admin: 02/10/18 11:55 Dose: 81 mg Atorvastatin Calcium (Lipitor) 40 mg PO DIN [facility] Last Admin: 02/10/18 17:03 Dose: 40 mg Carvedilol (Coreg) 6.25 mg PO BID [facility] Last Admin: 02/10/18 09:57 Dose: 6.25 mg Furosemide (Lasix) 40 mg IVP DAILY [facility] Last Admin: 02/10/18 09:58 Dose: 40 mg Hydrocortisone Sodium Succinate (Solu-Cortef) 25 mg IVP DAILY [facility] Last Admin: 02/10/18 09:58 Dose: 25 mg Propofol (Diprivan) 1,000 mg in 100 mls @ 3.538 mls/hr IV .Q24H PRN; Protocol; 5 MCG/KG/MIN PRN Reason: TITRATE PER MD ORDER Last Titration: 02/10/18 15:19 Dose: 5 mcg/kg/min, 3.538 mls/hr Doxycycline Hyclate 100 mg/ (Sodium Chloride) 100 mls @ 100 mls/hr IVPB Q12 [facility] PRN Reason: Protocol Last Admin: 02/10/18 09:44 Dose: 100 mls/hr Levetiracetam 1,500 mg/ Sodium (Chloride) 115 mls @ 460 mls/hr IV Q12 [facility] Last Admin: 02/10/18 09:43 Dose: 460 mls/hr Valproate Sodium 1,000 mg/ (Sodium Chloride) 110 mls @ 100 mls/hr IVPB Q12 [facility] Last Admin: 02/10/18 09:44 Dose: 100 mls/hr Vancomycin HCl (Vancomycin 1gm) 1 gm in 250 mls @ 167 mls/hr IVPB Q12H [facility] PRN Reason: Protocol Last Admin: 02/10/18 11:55 Dose: 167 mls/hr Dexmedetomidine HCl (Precedex 400mcg/100ml) 400 mcg in 100 mls @ 9.934 mls/hr IV .Q10H4M PRN; Protocol; 0.4 MCG/KG/HR PRN Reason: sedation Last Admin: 02/10/18 17:06 Dose: 0.4 mcg/kg/hr, 9.934 mls/hr Insulin Human Regular (Humulin R Med) 0 units SC Q6 [facility] PRN Reason: Protocol Last Admin: 02/10/18 12:05 Dose: Not Given Lorazepam (Ativan) 1 mg IVP Q6H PRN; Protocol PRN Reason: Seizure activity Last Admin: 02/06/18 14:28 Dose: 1 mg Ondansetron HCl (Zofran Inj) 4 mg IVP Q6H PRN PRN Reason: Nausea/Vomiting Last Admin: 02/10/18 16:00 Dose: 4 mg Pantoprazole Sodium (Protonix Inj) 40 mg IVP Q12 [facility] Last Admin: 02/10/18 09:58 Dose: 40 mg - Labs Labs: 02/10/18 06:00 02/10/18 06:00 PT 13.5 SECONDS (9.4-12.5) H 02/10/18 06:00 INR 1.17 (0.93-1.08) H 02/10/18 06:00 APTT 28.4 Seconds (25.1-36.5) 02/10/18 06:00 Attending/Attestation - Attestation I have personally seen and examined this patient.: Yes I have fully participated in the care of the patient.: Yes I have reviewed all pertinent clinical information, including history, physical exam and plan: Yes Notes (Text): 02/10/18 17:20 Medical record note made by the resident after discussion with my direction and input after the patient was personally seen and examined by me. I have reviewed the chart and agree that the record accurately reflects by personal performance of the history, physical exam, data review, and medical decision-making, in the course for the patient. I have also personally directed the plan of care. 57 yrs old male with PMHx of CAD , SP CABG , HTN, hypothyroidism, had Vfib arrest in the field,patient was coded for about 10 mins and Intubated. Patient is s/p hypothermic protocol and s/p rewarming. Echo showed EF 25% on Milrinone drip.Patient blood pressure is stable.He is off pressor.Patient is afebrile, on IV antibiotics as per ID.Cultures are negative. Mental status is poor.Initial EEG reveals very low amplitude rhythm with no normal posterior dominant rhythm. No interictal epileptiform discharges. EEG is abnormal. , repeat EEG is pending.Repeat CT head today was unremarkable.Patient is on Keppra for seizure. Prognosis is guarded Management plan was discussed with family who was at bed side
[2018-02-09 07:55] LABS: ARTERIAL BLOOD GAS HCO3 27.8 mmol/L (21-28); ARTERIAL BLOOD GAS HEMOGLOBIN 17.4 g/dL (11.7-17.4); ARTERIAL BLOOD GAS O2 CONTENT 23.3 ML/dl (15-23); ARTERIAL BLOOD GAS O2 SAT 97.2 % (95-98); ARTERIAL BLOOD GAS PCO2 40 mm/Hg (35-45); ARTERIAL BLOOD GAS PH 7.45 (7.35-7.45)
[2018-02-09 07:57] LABS: ALB/GLOB RATIO 1.1 (1.1-1.8); ALBUMIN 3.2 g/dL (3.0-4.8); ALT/SGPT 59 U/L (7-56); AST/SGOT 70 U/L (17-59); BLOOD UREA NITROGEN 28 mg/dL (7-21); GFR AFRICAN-AMERICAN > 60; GFR NON-AFRICAN AMERICAN > 60
[2018-02-09 08:41] LABS: WHITE BLOOD COUNT 10.1 10^3/ul (4.5-11.0)
--- NOTE | 2018-02-09 09:03 | CP.PCM.PN ---
Subjective - Date & Time of Evaluation Date of Evaluation: 02/09/18 Time of Evaluation: 07:00 - Subjective Subjective: Stable in CCU. I spoke with his bedside nurse and his at the bedside. Brief movement of left arm was noted. Sedated with only propofol now. Heparin and milrinone off. Some CG material via NGT yesterday. V/S noted. RSR PE: lungs: few rhonchi Cor.: S1S2 Abd.: soft Ext. + edema Neuro.: sedated. I/O= 1427/3850 recorded Labs and ABGs noted: h/h = 10.9/32.9, k+= 4.0 BCs all NG so far ECG: S. tachy., STTW changes CXR: not read yet. Seems improved. Less congestion. CT head noted. EEG pending. Objective - Vital Signs/Intake and Output Vital Signs (last 24 hours): Temp Pulse Resp BP Pulse Ox 100.4 F H 80 20 153/67 H 97 02/09/18 05:00 02/09/18 08:15 02/09/18 04:00 02/09/18 05:00 02/09/18 05:00 Intake and Output: 02/09/18 02/09/18 06:59 18:59 Intake Total 989.2 Output Total 3850 Balance -2860.8 - Medications Medications: Current Medications Albuterol/Ipratropium (Duoneb 3 Mg/0.5 Mg (3 Ml) Ud) 3 ml IH [id number] PRN PRN Reason: Shortness of Breath Last Admin: 02/09/18 03:30 Dose: 3 ml Artificial Tears (Artificial Tears) 0 ml OU Q8 PRN PRN Reason: Dry eyes Last Admin: 02/07/18 08:40 Dose: 2 drop Aspirin (Aspirin Chewable) 81 mg PO DAILY [facility] Last Admin: 02/08/18 09:59 Dose: 81 mg Atorvastatin Calcium (Lipitor) 40 mg PO DIN [facility] Last Admin: 02/08/18 17:54 Dose: 40 mg Furosemide (Lasix) 40 mg IVP DAILY [facility] Last Admin: 02/08/18 10:02 Dose: 40 mg Hydrocortisone Sodium Succinate (Solu-Cortef) 25 mg IVP Q8 [facility] Last Admin: 02/09/18 05:23 Dose: 25 mg Propofol (Diprivan) 1,000 mg in 100 mls @ 3.538 mls/hr IV .Q24H PRN; Protocol; 5 MCG/KG/MIN PRN Reason: TITRATE PER MD ORDER Last Admin: 02/09/18 05:27 Dose: 5 mcg/kg/min, 3.538 mls/hr Cefepime HCl (Maxipime 2gm) 2 gm in 100 mls @ 100 mls/hr IVPB Q12 [facility] PRN Reason: Protocol Stop: 02/09/18 10:01 Last Admin: 02/08/18 23:25 Dose: 100 mls/hr Midazolam 100 mg/100ml in NS (Midazolam 100 Mg/100ml In Ns) 100 mg in 100 mls @ 1 mls/hr IV .Q24H PRN; Protocol; 1 MG/HR PRN Reason: Sedation Last Titration: 02/08/18 14:49 Dose: 0 mg/hr, 0 mls/hr Fentanyl Citrate (Fentanyl Citrate/Sodium Chloride 1 Mg/100 Ml) 1,000 mcg in 100 mls @ 2 mls/hr IV .Q24H PRN; Protocol; 20 MCG/HR PRN Reason: TITRATE PER MD ORDER Last Titration: 02/08/18 16:24 Dose: 0 mcg/hr, 0 mls/hr Doxycycline Hyclate 100 mg/ (Sodium Chloride) 100 mls @ 100 mls/hr IVPB Q12 [facility] PRN Reason: Protocol Last Admin: 02/08/18 22:30 Dose: 100 mls/hr Levetiracetam 1,500 mg/ Sodium (Chloride) 115 mls @ 460 mls/hr IV Q12 [facility] Last Admin: 02/08/18 21:42 Dose: 460 mls/hr Valproate Sodium 1,000 mg/ (Sodium Chloride) 110 mls @ 100 mls/hr IVPB Q12 [facility] Last Admin: 02/08/18 22:30 Dose: 100 mls/hr Insulin Human Regular (Humulin R Med) 0 units SC Q6 [facility] PRN Reason: Protocol Last Admin: 02/09/18 05:42 Dose: Not Given Lorazepam (Ativan) 1 mg IVP Q6H PRN; Protocol PRN Reason: Seizure activity Last Admin: 02/06/18 14:28 Dose: 1 mg Pantoprazole Sodium (Protonix Inj) 40 mg IVP Q12 [facility] Last Admin: 02/08/18 21:29 Dose: 40 mg - Labs Labs: 02/09/18 06:15 02/09/18 06:15 PT 13.1 SECONDS (9.4-12.5) H 02/09/18 06:15 INR 1.14 (0.93-1.08) H 02/09/18 06:15 APTT 22.5 Seconds (25.1-36.5) L 02/09/18 06:15 Assessment and Plan - Assessment and Plan (Free Text) Assessment: Cardiac arrest at home Acute UT/CHF/S/P resuscitation in the field Anoxic encephalopathy CAD/UT/Remote CABG/No regular cardiac f/u HBP Hypothyroidism Smoker Plan: IV Lasix As per Neuro., GI, Renal, Intensivists Monitor: labs, I/O, sats., ABGs, CXRs, H/H neuro status, etc Will follow.
[2018-02-09] MEDS: levETIRAcetam 1,500 MG in Sodium Chloride 0.9% 100 ML IV SCH ×2 (09:46→21:36)
--- NOTE | 2018-02-09 09:46 | RAD ---
HISTORY: intubated COMPARISON: 02/08/2018 FINDINGS: LUNGS: Left lower lobe opacity. Possible pneumonia. Followup advised. No infiltrate elsewhere. PLEURA: Possible small left pleural effusion. No right pleural effusion. No pneumothorax. CARDIOVASCULAR: ETT, NG tube and right IJ central venous catheter unchanged. Sternotomy wires noted. Normal heart size. CABG. OSSEOUS STRUCTURES: No significant abnormalities. VISUALIZED UPPER ABDOMEN: Normal. OTHER FINDINGS: None. IMPRESSION: Left basilar opacity and small left pleural effusion. Follow-up advised to exclude developing pneumonia.
[2018-02-09] MEDS: Valproate 1,000 MG in Sodium Chloride 0.9% 100 ML IVPB SCH ×2 (09:50→21:36)
[2018-02-09] MEDS: Cefepime IV 2 gm in NS 2 GM/100 ML BAG IVPB SCH (09:50)
--- NOTE | 2018-02-09 12:04 | CP.PCM.PN ---
Subjective - Date & Time of Evaluation Date of Evaluation: 02/09/18 Time of Evaluation: 09:15 - Subjective Subjective: Patient now has fevers, still on the ventilator, poorly responsive. Objective - Vital Signs/Intake and Output Vital Signs (last 24 hours): Temp Pulse Resp BP Pulse Ox 100.4 F H 79 20 153/67 H 97 02/09/18 05:00 02/09/18 05:14 02/09/18 04:00 02/09/18 05:00 02/09/18 05:00 Intake and Output: 02/08/18 02/09/18 18:59 06:59 Intake Total 437.7 745.2 Output Total 3000 Balance 437.7 -2254.8 - Medications Medications: Current Medications Albuterol/Ipratropium (Duoneb 3 Mg/0.5 Mg (3 Ml) Ud) 3 ml IH [id number] PRN PRN Reason: Shortness of Breath Last Admin: 02/09/18 03:30 Dose: 3 ml Artificial Tears (Artificial Tears) 0 ml OU Q8 PRN PRN Reason: Dry eyes Last Admin: 02/07/18 08:40 Dose: 2 drop Aspirin (Aspirin Chewable) 81 mg PO DAILY [facility] Last Admin: 02/08/18 09:59 Dose: 81 mg Atorvastatin Calcium (Lipitor) 40 mg PO DIN [facility] Last Admin: 02/08/18 17:54 Dose: 40 mg Furosemide (Lasix) 40 mg IVP DAILY [facility] Last Admin: 02/08/18 10:02 Dose: 40 mg Hydrocortisone Sodium Succinate (Solu-Cortef) 25 mg IVP Q8 [facility] Last Admin: 02/09/18 05:23 Dose: 25 mg Propofol (Diprivan) 1,000 mg in 100 mls @ 3.538 mls/hr IV .Q24H PRN; Protocol; 5 MCG/KG/MIN PRN Reason: TITRATE PER MD ORDER Last Admin: 02/09/18 05:27 Dose: 5 mcg/kg/min, 3.538 mls/hr Cefepime HCl (Maxipime 2gm) 2 gm in 100 mls @ 100 mls/hr IVPB Q12 [facility] PRN Reason: Protocol Stop: 02/09/18 10:01 Last Admin: 02/08/18 23:25 Dose: 100 mls/hr Midazolam 100 mg/100ml in NS (Midazolam 100 Mg/100ml In Ns) 100 mg in 100 mls @ 1 mls/hr IV .Q24H PRN; Protocol; 1 MG/HR PRN Reason: Sedation Last Titration: 02/08/18 14:49 Dose: 0 mg/hr, 0 mls/hr Fentanyl Citrate (Fentanyl Citrate/Sodium Chloride 1 Mg/100 Ml) 1,000 mcg in 100 mls @ 2 mls/hr IV .Q24H PRN; Protocol; 20 MCG/HR PRN Reason: TITRATE PER MD ORDER Last Titration: 02/08/18 16:24 Dose: 0 mcg/hr, 0 mls/hr Doxycycline Hyclate 100 mg/ (Sodium Chloride) 100 mls @ 100 mls/hr IVPB Q12 [facility] PRN Reason: Protocol Last Admin: 02/08/18 22:30 Dose: 100 mls/hr Levetiracetam 1,500 mg/ Sodium (Chloride) 115 mls @ 460 mls/hr IV Q12 [facility] Last Admin: 02/08/18 21:42 Dose: 460 mls/hr Valproate Sodium 1,000 mg/ (Sodium Chloride) 110 mls @ 100 mls/hr IVPB Q12 [facility] Last Admin: 02/08/18 22:30 Dose: 100 mls/hr Insulin Human Regular (Humulin R Med) 0 units SC Q6 [facility] PRN Reason: Protocol Last Admin: 02/09/18 05:42 Dose: Not Given Lorazepam (Ativan) 1 mg IVP Q6H PRN; Protocol PRN Reason: Seizure activity Last Admin: 02/06/18 14:28 Dose: 1 mg Pantoprazole Sodium (Protonix Inj) 40 mg IVP Q12 [facility] Last Admin: 02/08/18 21:29 Dose: 40 mg - Labs Labs: 02/08/18 05:30 02/08/18 05:30 PT 12.9 SECONDS (9.4-12.5) H 02/08/18 11:45 INR 1.12 (0.93-1.08) H 02/08/18 11:45 APTT 91.4 Seconds (25.1-36.5) H 02/08/18 05:30 - Constitutional Appears: Other (intubated, poorly responsive) - Head Exam Head Exam: NORMAL INSPECTION - Neck Exam Neck Exam: absent: Meningismus - Respiratory Exam Respiratory Exam: Decreased Breath Sounds - Cardiovascular Exam Cardiovascular Exam: +S1, +S2 - GI/Abdominal Exam GI & Abdominal Exam: Soft. absent: Tenderness Assessment and Plan - Assessment and Plan (Free Text) Plan: Assessment Systemic Inflammatory response syndrome, consider due to cardiac arrest etiology to be determined, R/O sepsis from aspiration pneumonitis; with new onset fever, R/O new onset infection CAD S/P CABG HTN thyroid disease significant smoking history Plan will start IV Vancomycin and continue Cefepime day 6 and Doxycycline as well; will repeat blood, sputum cx, urine cx, PCT and review CXR overall prognosis is poor will continue to monitor clinically follow up further recommendations of Neurology
[2018-02-09] MEDS: Vancomycin 1gm in NS 250ml 1 GM/250 ML BAG IVPB SCH (13:58)
[2018-02-09 17:14] LABS: PH,URINE 5.5 (4.7-8.0); URINE BILIRUBIN NEGATIVE (NEGATIVE); URINE BLOOD SMALL (NEGATIVE); URINE GLUCOSE (UA) NEGATIVE (NEGATIVE); URINE LEUKOCYTE ESTERASE NEGATIVE Leu/uL (NEGATIVE); URINE PROTEIN TRACE mg/dL (<30 mg/dL); URINE UROBILINOGEN 0.2 E.U./dL (<1 E.U./dL)
[2018-02-09 17:17] LABS: URINE APPEARANCE CLEAR (CLEAR); URINE COLOR YELLOW (YELLOW)
[2018-02-09 17:37] LABS: URINE AMORPHOUS SEDIMENT FEW; URINE BACTERIA LARGE (NEG); URINE COARSE GRANULAR CAST TRACE /hpf (0-2); URINE WBC 0 - 2 /hpf (0-6)
[2018-02-10] MEDS: Insulin Reg-MEDIUM-Coverage SC SCH ×4 (01:00→17:24)
[2018-02-10] MEDS: Vancomycin 1gm in NS 250ml 1 GM/250 ML BAG IVPB SCH ×3 (01:15→23:54)
[2018-02-10] MEDS: Propofol 10 mg/ml 1,000 MG/100 ML VIAL IV PRN (04:16)
[2018-02-10 06:08] LABS: ARTERIAL BLOOD GAS HCO3 28.4 mmol/L (21-28); ARTERIAL BLOOD GAS HEMOGLOBIN 10.8 g/dL (11.7-17.4); ARTERIAL BLOOD GAS O2 CONTENT 14.7 ML/dl (15-23); ARTERIAL BLOOD GAS O2 SAT 98.2 % (95-98); ARTERIAL BLOOD GAS PCO2 39 mm/Hg (35-45); ARTERIAL BLOOD GAS PH 7.47 (7.35-7.45); ARTERIAL BLOOD GAS TCO2 29.6 mmol.L (22-28)
[2018-02-10 07:05] LABS: BASO # 0.01 K/mm3 (0.0-2.0); BASO % 0.1 % (0.0-3.0); EOS # 0.2 (0.0-0.7); EOS % 2.1 % (1.5-5.0); GRAN # 5.19 (1.4-6.5); GRAN % 61.4 % (50.0-68.0); HEMOGLOBIN 10.4 g/dL (14.0-18.0); LYMPH % 24.1 % (22.0-35.0); MEAN CORPUSCULAR HEMOGLOBIN 29.1 pg (25.0-35.0); MEAN CORPUSCULAR HGB CONC 33.1 g/dl (31.0-37.0); MEAN PLATELET VOLUME 10.2 fl (7.0-11.0); MONO % 12.3 % (1.0-6.0); RBC 3.57 10^6/uL (3.5-6.1); RED CELL DISTRIBUTION WIDTH 14.3 % (11.5-14.5); WHITE BLOOD COUNT 8.5 10^3/ul (4.5-11.0)
[2018-02-10 07:11] LABS: ALB/GLOB RATIO 1.1 (1.1-1.8); ALBUMIN 3.2 g/dL (3.0-4.8); ALT/SGPT 57 U/L (7-56); AST/SGOT 62 U/L (17-59); BLOOD UREA NITROGEN 25 mg/dL (7-21); CALCIUM 8.3 mg/dL (8.4-10.5); GFR AFRICAN-AMERICAN > 60; GFR NON-AFRICAN AMERICAN > 60
[2018-02-10 07:14] LABS: INR 1.17 (0.93-1.08); PROTHROMBIN TIME 13.5 SECONDS (9.4-12.5)
[2018-02-10 07:15] LABS: PARTIAL THROMBOPLASTIN TIME 28.4 Seconds (25.1-36.5)
--- NOTE | 2018-02-10 07:26 | CP.CCUPN ---
<SalomónElisha - Last Filed: 02/10/18 10:02> CCU Subjective - Physician Review Subjective (Free Text): 02/05/18 12:12 Start rewarming now (less than 0.5 degree per hr till 98 F) No acute event overnight. Propofol 15 milrinone gtt 0.375 Amiodarino gtt should be stopped at noon now HR > [address] Soto: change dubneb PRN 02/07/18 12:26 Yesterday, vacation holiday but seen seizure Today 1 BM overnight, soft brown U/O 320 and gastric output 520 / over 24 hours 02/08/18 08:17 No seisure observed overnight. Cut down on sedation No BM, No gap reflex Dark stomach output 100 CC. U/O 700 cc/24 hrs 02/10/18 10:02 Gastric suction produces bilous, about 200 CC overnight CCU Objective - Vital Signs / Intake & Output Vital Signs (Last 4 hours): Vital Signs Temp Pulse Resp BP Pulse Ox 02/10/18 06:00 69 02/10/18 05:30 99.7 F H 70 134/71 96 02/10/18 05:03 99.5 F 71 24 131/59 L 100 02/10/18 04:48 99.3 F 100 02/10/18 04:42 99.3 F 70 98 02/10/18 04:30 99.3 F 66 24 133/57 L 97 02/10/18 04:00 99.1 F 74 24 138/62 97 02/10/18 03:30 99.1 F 65 24 133/56 L 97 Intake and Output (Last 8hrs): Intake & Output 02/09/18 02/10/18 02/10/18 22:59 06:59 14:59 Intake Total 600 750 Output Total 2600 1000 Balance -2000 -250 Weight 219 lb Intake: IV 600 750 Left Antecubital 500 Right Internal Jugular 650 Output: Gastric Amount 200 200 Stomach 200 200 Urine 2400 800 Urethral (Garcia) 2400 800 Other: # Bowel Movements 0 - Physical Exam Physical Exam Limitations: Positive for: Other (Able to open and close eyes by commands) Head: Positive for: Atraumatic, Normocephalic Pupils: Positive for: PERRL Conjunctiva: Positive for: Normal Mouth: Positive for: Moist Mucous Membranes Respiratory/Chest: Positive for: Clear to Auscultation, Good Air Exchange ( Equal breath sounds bilaterally) Cardiovascular: Positive for: Regular Rate and Rhythm, Normal S1, S2. Negative for: Murmurs Abdomen: Negative for: Distention, Peritoneal Signs Upper Extremity: Negative for: Cyanosis, Edema Lower Extremity: Negative for: Edema Neurological: Positive for: Normal Sensory Function (Responsive to painful stimuli while propofol 15), Other (open and close eyes by command) Skin: Positive for: Warm, Dry, Normal Color. Negative for: Rashes - Medications Active Medications: Active Medications Generic Name Dose Route Start Last Admin Trade Name Freq PRN Reason Stop Dose Admin Acetaminophen 650 mg 02/09/18 09:59 02/09/18 10:36 Tylenol 325mg Tab PO 650 mg Q6H PRN Administration Fever >100.4 F Albuterol/Ipratropium 3 ml 02/05/18 12:47 02/09/18 03:30 Duoneb 3 Mg/0.5 Mg (3 Ml) Ud IH 3 ml [id number] PRN Administration Shortness of Breath Artificial Tears 0 ml 02/04/18 15:56 02/07/18 08:40 Artificial Tears OU 2 drop Q8 PRN Administration Dry eyes Aspirin 81 mg 02/07/18 10:00 02/08/18 09:59 Aspirin Chewable PO 81 mg DAILY DAMON Administration Atorvastatin Calcium 40 mg 02/04/18 17:00 02/09/18 17:27 Lipitor PO 40 mg DIN DAMON Administration Carvedilol 6.25 mg 02/09/18 10:00 02/09/18 17:27 Coreg PO 6.25 mg BID DAMON Administration Furosemide 40 mg 02/08/18 08:00 02/09/18 09:50 Lasix IVP 40 mg DAILY DAMON Administration Hydrocortisone Sodium Succinate 25 mg 02/08/18 08:54 02/10/18 05:21 Solu-Cortef IVP 25 mg Q8 DAMON Administration Propofol 1,000 mg in 100 mls @ 3.538 mls/hr 02/04/18 05:03 02/10/18 06:05 Diprivan IV 10 mcg/kg/min .Q24H PRN 7.076 mls/hr TITRATE PER MD ORDER Titration Protocol 5 MCG/KG/MIN Midazolam 100 mg/100ml in NS 100 mg in 100 mls @ 1 mls/hr 02/06/18 05:52 07/18 14:49 Midazolam 100 Mg/100ml In Ns IV 0 mg/hr .Q24H PRN 0 mls/hr Sedation Titration Protocol 1 MG/HR Fentanyl Citrate 1,000 mcg in 100 mls @ 2 mls/hr 02/06/18 15:13 02/08/18 16: 24 Fentanyl Citrate/Sodium Chloride 1 Mg/100 Ml IV 0 mcg/hr .Q24H PRN 0 mls/hr TITRATE PER MD ORDER Titration Protocol 20 MCG/HR Doxycycline Hyclate 100 mg/ 100 mls @ 100 mls/hr 02/07/18 22:00 02/09/18 21: 36 Sodium Chloride IVPB 100 mls/hr Q12 DAMON Administration Protocol Levetiracetam 1,500 mg/ Sodium 115 mls @ 460 mls/hr 02/08/18 22:00 02/09/18 21:36 Chloride IV 460 mls/hr Q12 DAMON Administration Valproate Sodium 1,000 mg/ 110 mls @ 100 mls/hr 02/08/18 12:00 02/09/18 21:36 Sodium Chloride IVPB 100 mls/hr Q12 DAMON Administration Vancomycin HCl 1 gm in 250 mls @ 167 mls/hr 02/09/18 12:15 02/10/18 01:15 Vancomycin 1gm IVPB 167 mls/hr Q12H DAMON Administration Protocol Insulin Human Regular 0 units 02/05/18 12:00 02/10/18 05:22 Humulin R Med SC Not Given Q6 DAMON Protocol Lorazepam 1 mg 02/05/18 18:40 02/06/18 14:28 Ativan IVP 1 mg Q6H PRN Administration Seizure activity Protocol Pantoprazole Sodium 40 mg 02/08/18 22:00 02/09/18 21:36 Protonix Inj IVP 40 mg Q12 DAMON Administration - Patient Studies Lab Studies: Microbiology Studies 02/05/18 06:30 Blood Culture - Final Blood NO GROWTH AFTER 5 DAYS Gram Stain - Final TEST NOT PERFORMED 02/09/18 07:50 Gram Stain - Final Sputum 02/04/18 07:00 Blood Culture - Final Blood-Venous NO GROWTH AFTER 5 DAYS Gram Stain - Final TEST NOT PERFORMED 02/04/18 06:45 Blood Culture - Final Blood-Venous NO GROWTH AFTER 5 DAYS Lab Studies 02/10/18 02/10/18 02/10/18 Range/Units 06:00 06:00 06:00 WBC 8.5 (4.5-11.0) 10^3/ul RBC 3.57 (3.5-6.1) 10^6/uL Hgb 10.4 L (14.0-18.0) g/dL Hct 31.4 L (42.0-52.0) % MCV 88.0 (80.0-105.0) fl MCH 29.1 (25.0-35.0) pg MCHC 33.1 (31.0-37.0) g/dl RDW 14.3 (11.5-14.5) % Plt Count 123 (120.0-450.0) 10^3/uL MPV 10.2 (7.0-11.0) fl Gran % 61.4 (50.0-68.0) % Lymph % (Auto) 24.1 (22.0-35.0) % [place] % (Auto) 12.3 H (1.0-6.0) % Eos % (Auto) 2.1 (1.5-5.0) % Baso % (Auto) 0.1 (0.0-3.0) % Gran # 5.19 (1.4-6.5) Lymph # (Auto) 2.0 (1.2-3.4) [place] # (Auto) 1.0 H (0.1-0.6) Eos # (Auto) 0.2 (0.0-0.7) Baso # (Auto) 0.01 (0.0-2.0) K/mm3 PT 13.5 H (9.4-12.5) SECONDS INR 1.17 H (0.93-1.08) APTT 28.4 (25.1-36.5) Seconds pCO2 (35-45) mm/Hg pO2 (80-100) mm/Hg HCO3 (21-28) mmol/L ABG pH (7.35-7.45) ABG Total CO2 (22-28) mmol.L ABG O2 Saturation (95-98) % ABG O2 Content (15-23) ML/dl ABG Base Excess (-2.0-3.0) mmol/L ABG Hemoglobin (11.7-17.4) g/dL ABG Carboxyhemoglobin (0.5-1.5) % POC ABG HHb (Measured) (0-5) % ABG Methemoglobin (0.0-3.0) % ABG O2 Capacity (16-24) mL/dl Hgb O2 Saturation (95.0-98.0) % FiO2 % Sodium 150 H (132-148) mmol/L Potassium 3.6 (3.6-5.0) mmol/L Chloride 110 H (98-107) mmol/L Carbon Dioxide 29 (21-33) mmol/L Anion Gap 15 (10-20) BUN 25 H (7-21) mg/dL Creatinine 0.8 (0.8-1.5) mg/dl Est GFR ( Amer) > 60 Est GFR (Non-Af Amer) > 60 POC Glucose (mg/dL) (65-110) mg/dL Random Glucose 99 (70-110) mg/dL Calcium 8.3 L (8.4-10.5) mg/dL Ionized Calcium (4.80-5.60) mg/dL Phosphorus 3.1 (2.5-4.5) mg/dL Magnesium 2.3 H (1.7-2.2) mg/dL Total Bilirubin 1.1 (0.2-1.3) mg/dL AST 62 H (17-59) U/L ALT 57 H (7-56) U/L Alkaline Phosphatase 57 (38-126) U/L Total Protein 6.0 (5.8-8.3) g/dL Albumin 3.2 (3.0-4.8) g/dL Globulin 2.9 gm/dL Albumin/Globulin Ratio 1.1 (1.1-1.8) Procalcitonin (0.19-0.49) NG/ML Urine Color (YELLOW) Urine Appearance (CLEAR) Urine pH (4.7-8.0) Ur Specific [place] (1.005-1.035) Urine Protein (<30 mg/dL) mg/dL Urine Glucose (UA) (NEGATIVE) mg/dL Urine Ketones (NEGATIVE) mg/dL Urine Blood (NEGATIVE) Urine Nitrate (NEGATIVE) Urine Bilirubin (NEGATIVE) Urine Urobilinogen (<1 E.U./dL) E.U./dL Ur Leukocyte Esterase (NEGATIVE) Jimmy/uL Urine RBC (0-2) /hpf Urine WBC (0-6) /hpf Ur Epithelial Cells (0-5) /hpf Amorphous Sediment Urine Bacteria (NEG) Coarse Granular Casts (0-2) /hpf Urine Other 02/10/18 02/10/18 02/09/18 Range/Units 05:48 05:45 22:27 WBC (4.5-11.0) 10^3/ul RBC (3.5-6.1) 10^6/uL Hgb (14.0-18.0) g/dL Hct (42.0-52.0) % MCV (80.0-105.0) fl MCH (25.0-35.0) pg MCHC (31.0-37.0) g/dl RDW (11.5-14.5) % Plt Count (120.0-450.0) 10^3/uL MPV (7.0-11.0) fl Gran % (50.0-68.0) % Lymph % (Auto) (22.0-35.0) % [place] % (Auto) (1.0-6.0) % Eos % (Auto) (1.5-5.0) % Baso % (Auto) (0.0-3.0) % Gran # (1.4-6.5) Lymph # (Auto) (1.2-3.4) [place] # (Auto) (0.1-0.6) Eos # (Auto) (0.0-0.7) Baso # (Auto) (0.0-2.0) K/mm3 PT (9.4-12.5) SECONDS INR (0.93-1.08) APTT (25.1-36.5) Seconds pCO2 39 (35-45) mm/Hg pO2 85.0 (80-100) mm/Hg HCO3 28.4 H (21-28) mmol/L ABG pH 7.47 H (7.35-7.45) ABG Total CO2 29.6 H (22-28) mmol.L ABG O2 Saturation 98.2 H (95-98) % ABG O2 Content 14.7 L (15-23) ML/dl ABG Base Excess 4.4 H (-2.0-3.0) mmol/L ABG Hemoglobin 10.8 L (11.7-17.4) g/dL ABG Carboxyhemoglobin 1.7 H (0.5-1.5) % POC ABG HHb (Measured) 1.8 (0-5) % ABG Methemoglobin 0.5 (0.0-3.0) % ABG O2 Capacity 15.0 L (16-24) mL/dl Hgb O2 Saturation 96.0 (95.0-98.0) % FiO2 35.0 % Sodium (132-148) mmol/L Potassium (3.6-5.0) mmol/L Chloride (98-107) mmol/L Carbon Dioxide (21-33) mmol/L Anion Gap (10-20) BUN (7-21) mg/dL Creatinine (0.8-1.5) mg/dl Est GFR ( Amer) Est GFR (Non-Af Amer) POC Glucose (mg/dL) 79 108 (65-110) mg/dL Random Glucose (70-110) mg/dL Calcium (8.4-10.5) mg/dL Ionized Calcium (4.80-5.60) mg/dL Phosphorus (2.5-4.5) mg/dL Magnesium (1.7-2.2) mg/dL Total Bilirubin (0.2-1.3) mg/dL AST (17-59) U/L ALT (7-56) U/L Alkaline Phosphatase (38-126) U/L Total Protein (5.8-8.3) g/dL Albumin (3.0-4.8) g/dL Globulin gm/dL Albumin/Globulin Ratio (1.1-1.8) Procalcitonin (0.19-0.49) NG/ML Urine Color (YELLOW) Urine Appearance (CLEAR) Urine pH (4.7-8.0) Ur Specific [place] (1.005-1.035) Urine Protein (<30 mg/dL) mg/dL Urine Glucose (UA) (NEGATIVE) mg/dL Urine Ketones (NEGATIVE) mg/dL Urine Blood (NEGATIVE) Urine Nitrate (NEGATIVE) Urine Bilirubin (NEGATIVE) Urine Urobilinogen (<1 E.U./dL) E.U./dL Ur Leukocyte Esterase (NEGATIVE) Jimmy/uL Urine RBC (0-2) /hpf Urine WBC (0-6) /hpf Ur Epithelial Cells (0-5) /hpf Amorphous Sediment Urine Bacteria (NEG) Coarse Granular Casts (0-2) /hpf Urine Other 02/09/18 02/09/18 02/09/18 Range/Units 18:02 17:09 11:23 WBC (4.5-11.0) 10^3/ul RBC (3.5-6.1) 10^6/uL Hgb (14.0-18.0) g/dL Hct (42.0-52.0) % MCV (80.0-105.0) fl MCH (25.0-35.0) pg MCHC (31.0-37.0) g/dl RDW (11.5-14.5) % Plt Count (120.0-450.0) 10^3/uL MPV (7.0-11.0) fl Gran % (50.0-68.0) % Lymph % (Auto) (22.0-35.0) % [place] % (Auto) (1.0-6.0) % Eos % (Auto) (1.5-5.0) % Baso % (Auto) (0.0-3.0) % Gran # (1.4-6.5) Lymph # (Auto) (1.2-3.4) [place] # (Auto) (0.1-0.6) Eos # (Auto) (0.0-0.7) Baso # (Auto) (0.0-2.0) K/mm3 PT (9.4-12.5) SECONDS INR (0.93-1.08) APTT (25.1-36.5) Seconds pCO2 (35-45) mm/Hg pO2 (80-100) mm/Hg HCO3 (21-28) mmol/L ABG pH (7.35-7.45) ABG Total CO2 (22-28) mmol.L ABG O2 Saturation (95-98) % ABG O2 Content (15-23) ML/dl ABG Base Excess (-2.0-3.0) mmol/L ABG Hemoglobin (11.7-17.4) g/dL ABG Carboxyhemoglobin (0.5-1.5) % POC ABG HHb (Measured) (0-5) % ABG Methemoglobin (0.0-3.0) % ABG O2 Capacity (16-24) mL/dl Hgb O2 Saturation (95.0-98.0) % FiO2 % Sodium (132-148) mmol/L Potassium (3.6-5.0) mmol/L Chloride (98-107) mmol/L Carbon Dioxide (21-33) mmol/L Anion Gap (10-20) BUN (7-21) mg/dL Creatinine (0.8-1.5) mg/dl Est GFR ( Amer) Est GFR (Non-Af Amer) POC Glucose (mg/dL) 106 111 H (65-110) mg/dL Random Glucose (70-110) mg/dL Calcium (8.4-10.5) mg/dL Ionized Calcium (4.80-5.60) mg/dL Phosphorus (2.5-4.5) mg/dL Magnesium (1.7-2.2) mg/dL Total Bilirubin (0.2-1.3) mg/dL AST (17-59) U/L ALT (7-56) U/L Alkaline Phosphatase (38-126) U/L Total Protein (5.8-8.3) g/dL Albumin (3.0-4.8) g/dL Globulin gm/dL Albumin/Globulin Ratio (1.1-1.8) Procalcitonin (0.19-0.49) NG/ML Urine Color Yellow (YELLOW) Urine Appearance Clear (CLEAR) Urine pH 5.5 (4.7-8.0) Ur Specific [place] 1.025 (1.005-1.035) Urine Protein Trace H (<30 mg/dL) mg/dL Urine Glucose (UA) Negative (NEGATIVE) mg/dL Urine Ketones 40 H (NEGATIVE) mg/dL Urine Blood Small H (NEGATIVE) Urine Nitrate Negative (NEGATIVE) Urine Bilirubin Negative (NEGATIVE) Urine Urobilinogen 0.2 (<1 E.U./dL) E.U./dL Ur Leukocyte Esterase Negative (NEGATIVE) Jimmy/uL Urine RBC 5 - 10 (0-2) /hpf Urine WBC 0 - 2 (0-6) /hpf Ur Epithelial Cells None (0-5) /hpf Amorphous Sediment Few Urine Bacteria Large (NEG) Coarse Granular Casts Trace H (0-2) /hpf Urine Other Uyeast 02/09/18 02/09/18 02/09/18 Range/Units 07:30 07:00 06:15 WBC (4.5-11.0) 10^3/ul RBC (3.5-6.1) 10^6/uL Hgb (14.0-18.0) g/dL Hct (42.0-52.0) % MCV (80.0-105.0) fl MCH (25.0-35.0) pg MCHC (31.0-37.0) g/dl RDW (11.5-14.5) % Plt Count (120.0-450.0) 10^3/uL MPV (7.0-11.0) fl Gran % (50.0-68.0) % Lymph % (Auto) (22.0-35.0) % [place] % (Auto) (1.0-6.0) % Eos % (Auto) (1.5-5.0) % Baso % (Auto) (0.0-3.0) % Gran # (1.4-6.5) Lymph # (Auto) (1.2-3.4) [place] # (Auto) (0.1-0.6) Eos # (Auto) (0.0-0.7) Baso # (Auto) (0.0-2.0) K/mm3 PT (9.4-12.5) SECONDS INR (0.93-1.08) APTT (25.1-36.5) Seconds pCO2 40 (35-45) mm/Hg pO2 80.0 (80-100) mm/Hg HCO3 27.8 (21-28) mmol/L ABG pH 7.45 (7.35-7.45) ABG Total CO2 29.0 H (22-28) mmol.L ABG O2 Saturation 97.2 (95-98) % ABG O2 Content 23.3 H (15-23) ML/dl ABG Base Excess 3.5 H (-2.0-3.0) mmol/L ABG Hemoglobin 17.4 (11.7-17.4) g/dL ABG Carboxyhemoglobin 1.4 (0.5-1.5) % POC ABG HHb (Measured) 2.7 (0-5) % ABG Methemoglobin 0.6 (0.0-3.0) % ABG O2 Capacity 24.0 (16-24) mL/dl Hgb O2 Saturation 95.3 (95.0-98.0) % FiO2 35.0 % Sodium 147 (132-148) mmol/L Potassium 4.0 (3.6-5.0) mmol/L Chloride 109 H (98-107) mmol/L Carbon Dioxide 27 (21-33) mmol/L Anion Gap 15 (10-20) BUN 28 H (7-21) mg/dL Creatinine 0.8 (0.8-1.5) mg/dl Est GFR ( Amer) > 60 Est GFR (Non-Af Amer) > 60 POC Glucose (mg/dL) (65-110) mg/dL Random Glucose 97 (70-110) mg/dL Calcium 8.0 L (8.4-10.5) mg/dL Ionized Calcium (4.80-5.60) mg/dL Phosphorus 3.2 (2.5-4.5) mg/dL Magnesium 2.2 (1.7-2.2) mg/dL Total Bilirubin 1.0 (0.2-1.3) mg/dL AST 70 H D (17-59) U/L ALT 59 H (7-56) U/L Alkaline Phosphatase 53 (38-126) U/L Total Protein 6.1 (5.8-8.3) g/dL Albumin 3.2 (3.0-4.8) g/dL Globulin 2.9 gm/dL Albumin/Globulin Ratio 1.1 (1.1-1.8) Procalcitonin 0.32 (0.19-0.49) NG/ML Urine Color (YELLOW) Urine Appearance (CLEAR) Urine pH (4.7-8.0) Ur Specific [place] (1.005-1.035) Urine Protein (<30 mg/dL) mg/dL Urine Glucose (UA) (NEGATIVE) mg/dL Urine Ketones (NEGATIVE) mg/dL Urine Blood (NEGATIVE) Urine Nitrate (NEGATIVE) Urine Bilirubin (NEGATIVE) Urine Urobilinogen (<1 E.U./dL) E.U./dL Ur Leukocyte Esterase (NEGATIVE) Jimmy/uL Urine RBC (0-2) /hpf Urine WBC (0-6) /hpf Ur Epithelial Cells (0-5) /hpf Amorphous Sediment Urine Bacteria (NEG) Coarse Granular Casts (0-2) /hpf Urine Other 02/09/18 02/05/18 Range/Units 06:15 22:05 WBC 10.1 (4.5-11.0) 10^3/ul RBC (3.5-6.1) 10^6/uL Hgb (14.0-18.0) g/dL Hct (42.0-52.0) % MCV (80.0-105.0) fl MCH (25.0-35.0) pg MCHC (31.0-37.0) g/dl RDW (11.5-14.5) % Plt Count (120.0-450.0) 10^3/uL MPV (7.0-11.0) fl Gran % (50.0-68.0) % Lymph % (Auto) (22.0-35.0) % [place] % (Auto) (1.0-6.0) % Eos % (Auto) (1.5-5.0) % Baso % (Auto) (0.0-3.0) % Gran # (1.4-6.5) Lymph # (Auto) (1.2-3.4) [place] # (Auto) (0.1-0.6) Eos # (Auto) (0.0-0.7) Baso # (Auto) (0.0-2.0) K/mm3 PT (9.4-12.5) SECONDS INR (0.93-1.08) APTT (25.1-36.5) Seconds pCO2 (35-45) mm/Hg pO2 (80-100) mm/Hg HCO3 (21-28) mmol/L ABG pH (7.35-7.45) ABG Total CO2 (22-28) mmol.L ABG O2 Saturation (95-98) % ABG O2 Content (15-23) ML/dl ABG Base Excess (-2.0-3.0) mmol/L ABG Hemoglobin (11.7-17.4) g/dL ABG Carboxyhemoglobin (0.5-1.5) % POC ABG HHb (Measured) (0-5) % ABG Methemoglobin (0.0-3.0) % ABG O2 Capacity (16-24) mL/dl Hgb O2 Saturation (95.0-98.0) % FiO2 % Sodium (132-148) mmol/L Potassium (3.6-5.0) mmol/L Chloride (98-107) mmol/L Carbon Dioxide (21-33) mmol/L Anion Gap (10-20) BUN (7-21) mg/dL Creatinine (0.8-1.5) mg/dl Est GFR ( Amer) Est GFR (Non-Af Amer) POC Glucose (mg/dL) (65-110) mg/dL Random Glucose (70-110) mg/dL Calcium (8.4-10.5) mg/dL Ionized Calcium 2.8 L (4.80-5.60) mg/dL Phosphorus (2.5-4.5) mg/dL Magnesium (1.7-2.2) mg/dL Total Bilirubin (0.2-1.3) mg/dL AST (17-59) U/L ALT (7-56) U/L Alkaline Phosphatase (38-126) U/L Total Protein (5.8-8.3) g/dL Albumin (3.0-4.8) g/dL Globulin gm/dL Albumin/Globulin Ratio (1.1-1.8) Procalcitonin (0.19-0.49) NG/ML Urine Color (YELLOW) Urine Appearance (CLEAR) Urine pH (4.7-8.0) Ur Specific [place] (1.005-1.035) Urine Protein (<30 mg/dL) mg/dL Urine Glucose (UA) (NEGATIVE) mg/dL Urine Ketones (NEGATIVE) mg/dL Urine Blood (NEGATIVE) Urine Nitrate (NEGATIVE) Urine Bilirubin (NEGATIVE) Urine Urobilinogen (<1 E.U./dL) E.U./dL Ur Leukocyte Esterase (NEGATIVE) Jimmy/uL Urine RBC (0-2) /hpf Urine WBC (0-6) /hpf Ur Epithelial Cells (0-5) /hpf Amorphous Sediment Urine Bacteria (NEG) Coarse Granular Casts (0-2) /hpf Urine Other Laboratory Results - last 24 hr 02/05/18 02/09/18 02/09/18 22:05 06:15 06:15 WBC 10.1 RBC Hgb Hct MCV MCH MCHC RDW Plt Count MPV Gran % Lymph % (Auto) [place] % (Auto) Eos % (Auto) Baso % (Auto) Gran # Lymph # (Auto) [place] # (Auto) Eos # (Auto) Baso # (Auto) PT INR APTT pCO2 pO2 HCO3 ABG pH ABG Total CO2 ABG O2 Saturation ABG O2 Content ABG Base Excess ABG Hemoglobin ABG Carboxyhemoglobin POC ABG HHb (Measured) ABG Methemoglobin ABG O2 Capacity Hgb O2 Saturation FiO2 Sodium 147 Potassium 4.0 Chloride 109 H Carbon Dioxide 27 Anion Gap 15 BUN 28 H Creatinine 0.8 Est GFR ( Amer) > 60 Est GFR (Non-Af Amer) > 60 POC Glucose (mg/dL) Random Glucose 97 Calcium 8.0 L Ionized Calcium 2.8 L Phosphorus 3.2 Magnesium 2.2 Total Bilirubin 1.0 AST 70 H D ALT 59 H Alkaline Phosphatase 53 Total Protein 6.1 Albumin 3.2 Globulin 2.9 Albumin/Globulin Ratio 1.1 Procalcitonin Urine Color Urine Appearance Urine pH Ur Specific [place] Urine Protein Urine Glucose (UA) Urine Ketones Urine Blood Urine Nitrate Urine Bilirubin Urine Urobilinogen Ur Leukocyte Esterase Urine RBC Urine WBC Ur Epithelial Cells Amorphous Sediment Urine Bacteria Coarse Granular Casts Urine Other 02/09/18 02/09/18 02/09/18 07:00 07:30 11:23 WBC RBC Hgb Hct MCV MCH MCHC RDW Plt Count MPV Gran % Lymph % (Auto) [place] % (Auto) Eos % (Auto) Baso % (Auto) Gran # Lymph # (Auto) [place] # (Auto) Eos # (Auto) Baso # (Auto) PT INR APTT pCO2 40 pO2 80.0 HCO3 27.8 ABG pH 7.45 ABG Total CO2 29.0 H ABG O2 Saturation 97.2 ABG O2 Content 23.3 H ABG Base Excess 3.5 H ABG Hemoglobin 17.4 ABG Carboxyhemoglobin 1.4 POC ABG HHb (Measured) 2.7 ABG Methemoglobin 0.6 ABG O2 Capacity 24.0 Hgb O2 Saturation 95.3 FiO2 35.0 Sodium Potassium Chloride Carbon Dioxide Anion Gap BUN Creatinine Est GFR ( Amer) Est GFR (Non-Af Amer) POC Glucose (mg/dL) 111 H Random Glucose Calcium Ionized Calcium Phosphorus Magnesium Total Bilirubin AST ALT Alkaline Phosphatase Total Protein Albumin Globulin Albumin/Globulin Ratio Procalcitonin 0.32 Urine Color Urine Appearance Urine pH Ur Specific [place] Urine Protein Urine Glucose (UA) Urine Ketones Urine Blood Urine Nitrate Urine Bilirubin Urine Urobilinogen Ur Leukocyte Esterase Urine RBC Urine WBC Ur Epithelial Cells Amorphous Sediment Urine Bacteria Coarse Granular Casts Urine Other 02/09/18 02/09/18 02/09/18 17:09 18:02 22:27 WBC RBC Hgb Hct MCV MCH MCHC RDW Plt Count MPV Gran % Lymph % (Auto) [place] % (Auto) Eos % (Auto) Baso % (Auto) Gran # Lymph # (Auto) [place] # (Auto) Eos # (Auto) Baso # (Auto) PT INR APTT pCO2 pO2 HCO3 ABG pH ABG Total CO2 ABG O2 Saturation ABG O2 Content ABG Base Excess ABG Hemoglobin ABG Carboxyhemoglobin POC ABG HHb (Measured) ABG Methemoglobin ABG O2 Capacity Hgb O2 Saturation FiO2 Sodium Potassium Chloride Carbon Dioxide Anion Gap BUN Creatinine Est GFR ( Amer) Est GFR (Non-Af Amer) POC Glucose (mg/dL) 106 108 Random Glucose Calcium Ionized Calcium Phosphorus Magnesium Total Bilirubin AST ALT Alkaline Phosphatase Total Protein Albumin Globulin Albumin/Globulin Ratio Procalcitonin Urine Color Yellow Urine Appearance Clear Urine pH 5.5 Ur Specific [place] 1.025 Urine Protein Trace H Urine Glucose (UA) Negative Urine Ketones 40 H Urine Blood Small H Urine Nitrate Negative Urine Bilirubin Negative Urine Urobilinogen 0.2 Ur Leukocyte Esterase Negative Urine RBC 5 - 10 Urine WBC 0 - 2 Ur Epithelial Cells None Amorphous Sediment Few Urine Bacteria Large Coarse Granular Casts Trace H Urine Other [place] 02/10/18 02/10/18 02/10/18 05:45 05:48 06:00 WBC 8.5 RBC 3.57 Hgb 10.4 L Hct 31.4 L MCV 88.0 MCH 29.1 MCHC 33.1 RDW 14.3 Plt Count 123 MPV 10.2 Gran % 61.4 Lymph % (Auto) 24.1 [place] % (Auto) 12.3 H Eos % (Auto) 2.1 Baso % (Auto) 0.1 Gran # 5.19 Lymph # (Auto) 2.0 [place] # (Auto) 1.0 H Eos # (Auto) 0.2 Baso # (Auto) 0.01 PT INR APTT pCO2 39 pO2 85.0 HCO3 28.4 H ABG pH 7.47 H ABG Total CO2 29.6 H ABG O2 Saturation 98.2 H ABG O2 Content 14.7 L ABG Base Excess 4.4 H ABG Hemoglobin 10.8 L ABG Carboxyhemoglobin 1.7 H POC ABG HHb (Measured) 1.8 ABG Methemoglobin 0.5 ABG O2 Capacity 15.0 L Hgb O2 Saturation 96.0 FiO2 35.0 Sodium Potassium Chloride Carbon Dioxide Anion Gap BUN Creatinine Est GFR ( Amer) Est GFR (Non-Af Amer) POC Glucose (mg/dL) 79 Random Glucose Calcium Ionized Calcium Phosphorus Magnesium Total Bilirubin AST ALT Alkaline Phosphatase Total Protein Albumin Globulin Albumin/Globulin Ratio Procalcitonin Urine Color Urine Appearance Urine pH Ur Specific [place] Urine Protein Urine Glucose (UA) Urine Ketones Urine Blood Urine Nitrate Urine Bilirubin Urine Urobilinogen Ur Leukocyte Esterase Urine RBC Urine WBC Ur Epithelial Cells Amorphous Sediment Urine Bacteria Coarse Granular Casts Urine Other 02/10/18 02/10/18 06:00 06:00 WBC RBC Hgb Hct MCV MCH MCHC RDW Plt Count MPV Gran % Lymph % (Auto) [place] % (Auto) Eos % (Auto) Baso % (Auto) Gran # Lymph # (Auto) [place] # (Auto) Eos # (Auto) Baso # (Auto) PT 13.5 H INR 1.17 H APTT 28.4 pCO2 pO2 HCO3 ABG pH ABG Total CO2 ABG O2 Saturation ABG O2 Content ABG Base Excess ABG Hemoglobin ABG Carboxyhemoglobin POC ABG HHb (Measured) ABG Methemoglobin ABG O2 Capacity Hgb O2 Saturation FiO2 Sodium 150 H Potassium 3.6 Chloride 110 H Carbon Dioxide 29 Anion Gap 15 BUN 25 H Creatinine 0.8 Est GFR ( Amer) > 60 Est GFR (Non-Af Amer) > 60 POC Glucose (mg/dL) Random Glucose 99 Calcium 8.3 L Ionized Calcium Phosphorus 3.1 Magnesium 2.3 H Total Bilirubin 1.1 AST 62 H ALT 57 H Alkaline Phosphatase 57 Total Protein 6.0 Albumin 3.2 Globulin 2.9 Albumin/Globulin Ratio 1.1 Procalcitonin Urine Color Urine Appearance Urine pH Ur Specific [place] Urine Protein Urine Glucose (UA) Urine Ketones Urine Blood Urine Nitrate Urine Bilirubin Urine Urobilinogen Ur Leukocyte Esterase Urine RBC Urine WBC Ur Epithelial Cells Amorphous Sediment Urine Bacteria Coarse Granular Casts Urine Other Fingerstick Blood Sugar Results: 106 Assessment/Plan - Assessment and Plan (Free Text) Plan: Mr Ordonez, 57 M with PMHx of CAD s/p CABG with 4 stents, HTN, hypothyroidism , s/p V. fib arrest in the field, s/p hypothermic protocol, s/p rewarming, day _ __5____. CXR showed pulmonary edema, improved, but cannot rule out pneumonia. Failed breathing trial on Thursday because of seizure. Keppra and Valproate is increased. No more seizure. CTH done on admission, c/w anoxic brain injury; repeat CTH no acute changes. CXR noted with bilateral pulm vasc congestion, cannot rule out infiltrate. Pt is able to open and close eyes on command when propofol is 10. This AM, try wean off vent: PEEP decrease of 5, and Off propofol. Delayed tubefeed for weaning protocol, but need free water flushes A: 1. S/p V fib cardiac arrest. hx CAD s/p CABG s/p stent 2. Anoxic brain injury and seizure, ventilator dependent respiratory failure, intubation day ___7___ 3. Cardiogenic shock vs Septic shock. off pressors. off milrinon gtt. tapering stress steroid. 4. Acute decompensated systolic CHF - improved 4. Pulm edema cannot rule out PNA - still on ABX 5. Hx hypothyrodism 6. Has ruled out GI bleed. Likely caused by continuous low suction and stress ulcers P: Neuro propofpl 15. ---> Now is 0 EEG while on sedation (02/04): No seizure EEG (02/08): pending read Keppra 1500 mg Q12. valproate 1000 Q12. CTH done on admission, c/w anoxic brain injury; repeat CTH (02/08) no acute changes. Pulm Cont with vent support, 450/24/P5/35%; propofol 0 Duonebs PRN CXR: slight bibasilar infiltrate (new), Impriove in pulm edema Card Echo 20-25%. Septal and apex severely hypokinetic Milrinone gtt - OGG Off Levophed today Hold ASA for dark gastric aspiration Lasix 40 IV daily Lipitor, ASA GI Protonix [address] Tinsley [place] tube feed 3600 U/O in 24 hours BUN 0.8 Endo Goal: Sugar 140-180 A1C__6.7___ Heme Off heparin gtt H/H stable Type and Cross ID Taper stress steroid, today: Solu-cortef daily today. Taper tomorrow PVX SCD, protonix gtt Dispo plan Give one more day. If not weanable today, will consider trach and peg s/r/d/ w Dr Galo <Ji Galo - Last Filed: 02/10/18 10:47> CCU Objective - Vital Signs / Intake & Output Vital Signs (Last 4 hours): Vital Signs Pulse BP 02/10/18 09:58 153/61 H 02/10/18 09:57 61 153/61 H Intake and Output (Last 8hrs): Intake & Output 02/09/18 02/10/18 02/10/18 22:59 06:59 14:59 Intake Total 600 750 72 Output Total 2600 1000 Balance -2000 -250 72 Weight 219 lb Intake: IV 600 750 72 Left Antecubital 500 Right Internal Jugular 650 Output: Gastric Amount 200 200 Stomach 200 200 Urine 2400 800 Urethral (Garcia) 2400 800 Other: # Bowel Movements 0 - Medications Active Medications: Active Medications Generic Name Dose Route Start Last Admin Trade Name Freq PRN Reason Stop Dose Admin Acetaminophen 650 mg 02/09/18 09:59 02/09/18 10:36 Tylenol 325mg Tab PO 650 mg Q6H PRN Administration Fever >100.4 F Albuterol/Ipratropium 3 ml 02/05/18 12:47 02/09/18 03:30 Duoneb 3 Mg/0.5 Mg (3 Ml) Ud IH 3 ml [id number] PRN Administration Shortness of Breath Artificial Tears 0 ml 02/04/18 15:56 02/07/18 08:40 Artificial Tears OU 2 drop Q8 PRN Administration Dry eyes Aspirin 81 mg 02/07/18 10:00 02/08/18 09:59 Aspirin Chewable PO 81 mg DAILY DAMON Administration Atorvastatin Calcium 40 mg 02/04/18 17:00 02/09/18 17:27 Lipitor PO 40 mg DIN DAMON Administration Carvedilol 6.25 mg 02/09/18 10:00 02/10/18 09:57 Coreg PO 6.25 mg BID DAMON Administration Furosemide 40 mg 02/08/18 08:00 02/10/18 09:58 Lasix IVP 40 mg DAILY DAMON Administration Hydrocortisone Sodium Succinate 25 mg 02/10/18 10:00 02/10/18 09:58 Solu-Cortef IVP 25 mg DAILY DAMON Administration Propofol 1,000 mg in 100 mls @ 3.538 mls/hr 02/04/18 05:03 02/10/18 09:49 Diprivan IV 0 mcg/kg/min .Q24H PRN 0 mls/hr TITRATE PER MD ORDER Titration Protocol 5 MCG/KG/MIN Doxycycline Hyclate 100 mg/ 100 mls @ 100 mls/hr 02/07/18 22:00 02/10/18 09: 44 Sodium Chloride IVPB 100 mls/hr Q12 DAMON Administration Protocol Levetiracetam 1,500 mg/ Sodium 115 mls @ 460 mls/hr 02/08/18 22:00 02/10/18 09:43 Chloride IV 460 mls/hr Q12 DAMON Administration Valproate Sodium 1,000 mg/ 110 mls @ 100 mls/hr 02/08/18 12:00 02/10/18 09:44 Sodium Chloride IVPB 100 mls/hr Q12 DAMON Administration Vancomycin HCl 1 gm in 250 mls @ 167 mls/hr 02/09/18 12:15 02/10/18 01:15 Vancomycin 1gm IVPB 167 mls/hr Q12H DAMON Administration Protocol Insulin Human Regular 0 units 02/05/18 12:00 02/10/18 05:22 Humulin R Med SC Not Given Q6 DAMON Protocol Lorazepam 1 mg 02/05/18 18:40 02/06/18 14:28 Ativan IVP 1 mg Q6H PRN Administration Seizure activity Protocol Pantoprazole Sodium 40 mg 02/08/18 22:00 02/10/18 09:58 Protonix Inj IVP 40 mg Q12 DAMON Administration - Patient Studies Lab Studies: Microbiology Studies 02/09/18 07:00 Blood Culture - Preliminary Blood-Venous NO GROWTH AFTER 24 HOURS 02/09/18 07:30 Blood Culture - Preliminary Blood-Venous NO GROWTH AFTER 24 HOURS 02/05/18 06:30 Blood Culture - Final Blood NO GROWTH AFTER 5 DAYS Gram Stain - Final TEST NOT PERFORMED 02/09/18 07:50 Gram Stain - Final Sputum 02/04/18 07:00 Blood Culture - Final Blood-Venous NO GROWTH AFTER 5 DAYS Gram Stain - Final TEST NOT PERFORMED 02/04/18 06:45 Blood Culture - Final Blood-Venous NO GROWTH AFTER 5 DAYS Lab Studies 02/10/18 02/10/18 02/10/18 Range/Units 06:00 06:00 06:00 WBC 8.5 (4.5-11.0) 10^3/ul RBC 3.57 (3.5-6.1) 10^6/uL Hgb 10.4 L (14.0-18.0) g/dL Hct 31.4 L (42.0-52.0) % MCV 88.0 (80.0-105.0) fl MCH 29.1 (25.0-35.0) pg MCHC 33.1 (31.0-37.0) g/dl RDW 14.3 (11.5-14.5) % Plt Count 123 (120.0-450.0) 10^3/uL MPV 10.2 (7.0-11.0) fl Gran % 61.4 (50.0-68.0) % Lymph % (Auto) 24.1 (22.0-35.0) % [place] % (Auto) 12.3 H (1.0-6.0) % Eos % (Auto) 2.1 (1.5-5.0) % Baso % (Auto) 0.1 (0.0-3.0) % Gran # 5.19 (1.4-6.5) Lymph # (Auto) 2.0 (1.2-3.4) [place] # (Auto) 1.0 H (0.1-0.6) Eos # (Auto) 0.2 (0.0-0.7) Baso # (Auto) 0.01 (0.0-2.0) K/mm3 PT 13.5 H (9.4-12.5) SECONDS INR 1.17 H (0.93-1.08) APTT 28.4 (25.1-36.5) Seconds pCO2 (35-45) mm/Hg pO2 (80-100) mm/Hg HCO3 (21-28) mmol/L ABG pH (7.35-7.45) ABG Total CO2 (22-28) mmol.L ABG O2 Saturation (95-98) % ABG O2 Content (15-23) ML/dl ABG Base Excess (-2.0-3.0) mmol/L ABG Hemoglobin (11.7-17.4) g/dL ABG Carboxyhemoglobin (0.5-1.5) % POC ABG HHb (Measured) (0-5) % ABG Methemoglobin (0.0-3.0) % ABG O2 Capacity (16-24) mL/dl Hgb O2 Saturation (95.0-98.0) % FiO2 % Sodium 150 H (132-148) mmol/L Potassium 3.6 (3.6-5.0) mmol/L Chloride 110 H (98-107) mmol/L Carbon Dioxide 29 (21-33) mmol/L Anion Gap 15 (10-20) BUN 25 H (7-21) mg/dL Creatinine 0.8 (0.8-1.5) mg/dl Est GFR ( Amer) > 60 Est GFR (Non-Af Amer) > 60 POC Glucose (mg/dL) (65-110) mg/dL Random Glucose 99 (70-110) mg/dL Calcium 8.3 L (8.4-10.5) mg/dL Phosphorus 3.1 (2.5-4.5) mg/dL Magnesium 2.3 H (1.7-2.2) mg/dL Total Bilirubin 1.1 (0.2-1.3) mg/dL AST 62 H (17-59) U/L ALT 57 H (7-56) U/L Alkaline Phosphatase 57 (38-126) U/L Total Protein 6.0 (5.8-8.3) g/dL Albumin 3.2 (3.0-4.8) g/dL Globulin 2.9 gm/dL Albumin/Globulin Ratio 1.1 (1.1-1.8) Procalcitonin (0.19-0.49) NG/ML Urine Color (YELLOW) Urine Appearance (CLEAR) Urine pH (4.7-8.0) Ur Specific [place] (1.005-1.035) Urine Protein (<30 mg/dL) mg/dL Urine Glucose (UA) (NEGATIVE) mg/dL Urine Ketones (NEGATIVE) mg/dL Urine Blood (NEGATIVE) Urine Nitrate (NEGATIVE) Urine Bilirubin (NEGATIVE) Urine Urobilinogen (<1 E.U./dL) E.U./dL Ur Leukocyte Esterase (NEGATIVE) Jimmy/uL Urine RBC (0-2) /hpf Urine WBC (0-6) /hpf Ur Epithelial Cells (0-5) /hpf Amorphous Sediment Urine Bacteria (NEG) Coarse Granular Casts (0-2) /hpf Urine Other 02/10/18 02/10/18 02/09/18 Range/Units 05:48 05:45 22:27 WBC (4.5-11.0) 10^3/ul RBC (3.5-6.1) 10^6/uL Hgb (14.0-18.0) g/dL Hct (42.0-52.0) % MCV (80.0-105.0) fl MCH (25.0-35.0) pg MCHC (31.0-37.0) g/dl RDW (11.5-14.5) % Plt Count (120.0-450.0) 10^3/uL MPV (7.0-11.0) fl Gran % (50.0-68.0) % Lymph % (Auto) (22.0-35.0) % [place] % (Auto) (1.0-6.0) % Eos % (Auto) (1.5-5.0) % Baso % (Auto) (0.0-3.0) % Gran # (1.4-6.5) Lymph # (Auto) (1.2-3.4) [place] # (Auto) (0.1-0.6) Eos # (Auto) (0.0-0.7) Baso # (Auto) (0.0-2.0) K/mm3 PT (9.4-12.5) SECONDS INR (0.93-1.08) APTT (25.1-36.5) Seconds pCO2 39 (35-45) mm/Hg pO2 85.0 (80-100) mm/Hg HCO3 28.4 H (21-28) mmol/L ABG pH 7.47 H (7.35-7.45) ABG Total CO2 29.6 H (22-28) mmol.L ABG O2 Saturation 98.2 H (95-98) % ABG O2 Content 14.7 L (15-23) ML/dl ABG Base Excess 4.4 H (-2.0-3.0) mmol/L ABG Hemoglobin 10.8 L (11.7-17.4) g/dL ABG Carboxyhemoglobin 1.7 H (0.5-1.5) % POC ABG HHb (Measured) 1.8 (0-5) % ABG Methemoglobin 0.5 (0.0-3.0) % ABG O2 Capacity 15.0 L (16-24) mL/dl Hgb O2 Saturation 96.0 (95.0-98.0) % FiO2 35.0 % Sodium (132-148) mmol/L Potassium (3.6-5.0) mmol/L Chloride (98-107) mmol/L Carbon Dioxide (21-33) mmol/L Anion Gap (10-20) BUN (7-21) mg/dL Creatinine (0.8-1.5) mg/dl Est GFR ( Amer) Est GFR (Non-Af Amer) POC Glucose (mg/dL) 79 108 (65-110) mg/dL Random Glucose (70-110) mg/dL Calcium (8.4-10.5) mg/dL Phosphorus (2.5-4.5) mg/dL Magnesium (1.7-2.2) mg/dL Total Bilirubin (0.2-1.3) mg/dL AST (17-59) U/L ALT (7-56) U/L Alkaline Phosphatase (38-126) U/L Total Protein (5.8-8.3) g/dL Albumin (3.0-4.8) g/dL Globulin gm/dL Albumin/Globulin Ratio (1.1-1.8) Procalcitonin (0.19-0.49) NG/ML Urine Color (YELLOW) Urine Appearance (CLEAR) Urine pH (4.7-8.0) Ur Specific [place] (1.005-1.035) Urine Protein (<30 mg/dL) mg/dL Urine Glucose (UA) (NEGATIVE) mg/dL Urine Ketones (NEGATIVE) mg/dL Urine Blood (NEGATIVE) Urine Nitrate (NEGATIVE) Urine Bilirubin (NEGATIVE) Urine Urobilinogen (<1 E.U./dL) E.U./dL Ur Leukocyte Esterase (NEGATIVE) Jimmy/uL Urine RBC (0-2) /hpf Urine WBC (0-6) /hpf Ur Epithelial Cells (0-5) /hpf Amorphous Sediment Urine Bacteria (NEG) Coarse Granular Casts (0-2) /hpf Urine Other 02/09/18 02/09/18 02/09/18 Range/Units 18:02 17:09 11:23 WBC (4.5-11.0) 10^3/ul RBC (3.5-6.1) 10^6/uL Hgb (14.0-18.0) g/dL Hct (42.0-52.0) % MCV (80.0-105.0) fl MCH (25.0-35.0) pg MCHC (31.0-37.0) g/dl RDW (11.5-14.5) % Plt Count (120.0-450.0) 10^3/uL MPV (7.0-11.0) fl Gran % (50.0-68.0) % Lymph % (Auto) (22.0-35.0) % [place] % (Auto) (1.0-6.0) % Eos % (Auto) (1.5-5.0) % Baso % (Auto) (0.0-3.0) % Gran # (1.4-6.5) Lymph # (Auto) (1.2-3.4) [place] # (Auto) (0.1-0.6) Eos # (Auto) (0.0-0.7) Baso # (Auto) (0.0-2.0) K/mm3 PT (9.4-12.5) SECONDS INR (0.93-1.08) APTT (25.1-36.5) Seconds pCO2 (35-45) mm/Hg pO2 (80-100) mm/Hg HCO3 (21-28) mmol/L ABG pH (7.35-7.45) ABG Total CO2 (22-28) mmol.L ABG O2 Saturation (95-98) % ABG O2 Content (15-23) ML/dl ABG Base Excess (-2.0-3.0) mmol/L ABG Hemoglobin (11.7-17.4) g/dL ABG Carboxyhemoglobin (0.5-1.5) % POC ABG HHb (Measured) (0-5) % ABG Methemoglobin (0.0-3.0) % ABG O2 Capacity (16-24) mL/dl Hgb O2 Saturation (95.0-98.0) % FiO2 % Sodium (132-148) mmol/L Potassium (3.6-5.0) mmol/L Chloride (98-107) mmol/L Carbon Dioxide (21-33) mmol/L Anion Gap (10-20) BUN (7-21) mg/dL Creatinine (0.8-1.5) mg/dl Est GFR ( Amer) Est GFR (Non-Af Amer) POC Glucose (mg/dL) 106 111 H (65-110) mg/dL Random Glucose (70-110) mg/dL Calcium (8.4-10.5) mg/dL Phosphorus (2.5-4.5) mg/dL Magnesium (1.7-2.2) mg/dL Total Bilirubin (0.2-1.3) mg/dL AST (17-59) U/L ALT (7-56) U/L Alkaline Phosphatase (38-126) U/L Total Protein (5.8-8.3) g/dL Albumin (3.0-4.8) g/dL Globulin gm/dL Albumin/Globulin Ratio (1.1-1.8) Procalcitonin (0.19-0.49) NG/ML Urine Color Yellow (YELLOW) Urine Appearance Clear (CLEAR) Urine pH 5.5 (4.7-8.0) Ur Specific [place] 1.025 (1.005-1.035) Urine Protein Trace H (<30 mg/dL) mg/dL Urine Glucose (UA) Negative (NEGATIVE) mg/dL Urine Ketones 40 H (NEGATIVE) mg/dL Urine Blood Small H (NEGATIVE) Urine Nitrate Negative (NEGATIVE) Urine Bilirubin Negative (NEGATIVE) Urine Urobilinogen 0.2 (<1 E.U./dL) E.U./dL Ur Leukocyte Esterase Negative (NEGATIVE) Jimmy/uL Urine RBC 5 - 10 (0-2) /hpf Urine WBC 0 - 2 (0-6) /hpf Ur Epithelial Cells None (0-5) /hpf Amorphous Sediment Few Urine Bacteria Large (NEG) Coarse Granular Casts Trace H (0-2) /hpf Urine Other Uyeast 02/09/18 Range/Units 07:00 WBC (4.5-11.0) 10^3/ul RBC (3.5-6.1) 10^6/uL Hgb (14.0-18.0) g/dL Hct (42.0-52.0) % MCV (80.0-105.0) fl MCH (25.0-35.0) pg MCHC (31.0-37.0) g/dl RDW (11.5-14.5) % Plt Count (120.0-450.0) 10^3/uL MPV (7.0-11.0) fl Gran % (50.0-68.0) % Lymph % (Auto) (22.0-35.0) % [place] % (Auto) (1.0-6.0) % Eos % (Auto) (1.5-5.0) % Baso % (Auto) (0.0-3.0) % Gran # (1.4-6.5) Lymph # (Auto) (1.2-3.4) [place] # (Auto) (0.1-0.6) Eos # (Auto) (0.0-0.7) Baso # (Auto) (0.0-2.0) K/mm3 PT (9.4-12.5) SECONDS INR (0.93-1.08) APTT (25.1-36.5) Seconds pCO2 (35-45) mm/Hg pO2 (80-100) mm/Hg HCO3 (21-28) mmol/L ABG pH (7.35-7.45) ABG Total CO2 (22-28) mmol.L ABG O2 Saturation (95-98) % ABG O2 Content (15-23) ML/dl ABG Base Excess (-2.0-3.0) mmol/L ABG Hemoglobin (11.7-17.4) g/dL ABG Carboxyhemoglobin (0.5-1.5) % POC ABG HHb (Measured) (0-5) % ABG Methemoglobin (0.0-3.0) % ABG O2 Capacity (16-24) mL/dl Hgb O2 Saturation (95.0-98.0) % FiO2 % Sodium (132-148) mmol/L Potassium (3.6-5.0) mmol/L Chloride (98-107) mmol/L Carbon Dioxide (21-33) mmol/L Anion Gap (10-20) BUN (7-21) mg/dL Creatinine (0.8-1.5) mg/dl Est GFR ( Amer) Est GFR (Non-Af Amer) POC Glucose (mg/dL) (65-110) mg/dL Random Glucose (70-110) mg/dL Calcium (8.4-10.5) mg/dL Phosphorus (2.5-4.5) mg/dL Magnesium (1.7-2.2) mg/dL Total Bilirubin (0.2-1.3) mg/dL AST (17-59) U/L ALT (7-56) U/L Alkaline Phosphatase (38-126) U/L Total Protein (5.8-8.3) g/dL Albumin (3.0-4.8) g/dL Globulin gm/dL Albumin/Globulin Ratio (1.1-1.8) Procalcitonin 0.32 (0.19-0.49) NG/ML Urine Color (YELLOW) Urine Appearance (CLEAR) Urine pH (4.7-8.0) Ur Specific [place] (1.005-1.035) Urine Protein (<30 mg/dL) mg/dL Urine Glucose (UA) (NEGATIVE) mg/dL Urine Ketones (NEGATIVE) mg/dL Urine Blood (NEGATIVE) Urine Nitrate (NEGATIVE) Urine Bilirubin (NEGATIVE) Urine Urobilinogen (<1 E.U./dL) E.U./dL Ur Leukocyte Esterase (NEGATIVE) Jimmy/uL Urine RBC (0-2) /hpf Urine WBC (0-6) /hpf Ur Epithelial Cells (0-5) /hpf Amorphous Sediment Urine Bacteria (NEG) Coarse Granular Casts (0-2) /hpf Urine Other Laboratory Results - last 24 hr 02/09/18 02/09/18 02/09/18 07:00 11:23 17:09 WBC RBC Hgb Hct MCV MCH MCHC RDW Plt Count MPV Gran % Lymph % (Auto) [place] % (Auto) Eos % (Auto) Baso % (Auto) Gran # Lymph # (Auto) [place] # (Auto) Eos # (Auto) Baso # (Auto) PT INR APTT pCO2 pO2 HCO3 ABG pH ABG Total CO2 ABG O2 Saturation ABG O2 Content ABG Base Excess ABG Hemoglobin ABG Carboxyhemoglobin POC ABG HHb (Measured) ABG Methemoglobin ABG O2 Capacity Hgb O2 Saturation FiO2 Sodium Potassium Chloride Carbon Dioxide Anion Gap BUN Creatinine Est GFR ( Amer) Est GFR (Non-Af Amer) POC Glucose (mg/dL) 111 H Random Glucose Calcium Phosphorus Magnesium Total Bilirubin AST ALT Alkaline Phosphatase Total Protein Albumin Globulin Albumin/Globulin Ratio Procalcitonin 0.32 Urine Color Yellow Urine Appearance Clear Urine pH 5.5 Ur Specific [place] 1.025 Urine Protein Trace H Urine Glucose (UA) Negative Urine Ketones 40 H Urine Blood Small H Urine Nitrate Negative Urine Bilirubin Negative Urine Urobilinogen 0.2 Ur Leukocyte Esterase Negative Urine RBC 5 - 10 Urine WBC 0 - 2 Ur Epithelial Cells None Amorphous Sediment Few Urine Bacteria Large Coarse Granular Casts Trace H Urine Other Uyeast 02/09/18 02/09/18 02/10/18 18:02 22:27 05:45 WBC RBC Hgb Hct MCV MCH MCHC RDW Plt Count MPV Gran % Lymph % (Auto) [place] % (Auto) Eos % (Auto) Baso % (Auto) Gran # Lymph # (Auto) [place] # (Auto) Eos # (Auto) Baso # (Auto) PT INR APTT pCO2 39 pO2 85.0 HCO3 28.4 H ABG pH 7.47 H ABG Total CO2 29.6 H ABG O2 Saturation 98.2 H ABG O2 Content 14.7 L ABG Base Excess 4.4 H ABG Hemoglobin 10.8 L ABG Carboxyhemoglobin 1.7 H POC ABG HHb (Measured) 1.8 ABG Methemoglobin 0.5 ABG O2 Capacity 15.0 L Hgb O2 Saturation 96.0 FiO2 35.0 Sodium Potassium Chloride Carbon Dioxide Anion Gap BUN Creatinine Est GFR ( Amer) Est GFR (Non-Af Amer) POC Glucose (mg/dL) 106 108 Random Glucose Calcium Phosphorus Magnesium Total Bilirubin AST ALT Alkaline Phosphatase Total Protein Albumin Globulin Albumin/Globulin Ratio Procalcitonin Urine Color Urine Appearance Urine pH Ur Specific [place] Urine Protein Urine Glucose (UA) Urine Ketones Urine Blood Urine Nitrate Urine Bilirubin Urine Urobilinogen Ur Leukocyte Esterase Urine RBC Urine WBC Ur Epithelial Cells Amorphous Sediment Urine Bacteria Coarse Granular Casts Urine Other 02/10/18 02/10/18 02/10/18 05:48 06:00 06:00 WBC 8.5 RBC 3.57 Hgb 10.4 L Hct 31.4 L MCV 88.0 MCH 29.1 MCHC 33.1 RDW 14.3 Plt Count 123 MPV 10.2 Gran % 61.4 Lymph % (Auto) 24.1 [place] % (Auto) 12.3 H Eos % (Auto) 2.1 Baso % (Auto) 0.1 Gran # 5.19 Lymph # (Auto) 2.0 [place] # (Auto) 1.0 H Eos # (Auto) 0.2 Baso # (Auto) 0.01 PT INR APTT pCO2 pO2 HCO3 ABG pH ABG Total CO2 ABG O2 Saturation ABG O2 Content ABG Base Excess ABG Hemoglobin ABG Carboxyhemoglobin POC ABG HHb (Measured) ABG Methemoglobin ABG O2 Capacity Hgb O2 Saturation FiO2 Sodium 150 H Potassium 3.6 Chloride 110 H Carbon Dioxide 29 Anion Gap 15 BUN 25 H Creatinine 0.8 Est GFR ( Amer) > 60 Est GFR (Non-Af Amer) > 60 POC Glucose (mg/dL) 79 Random Glucose 99 Calcium 8.3 L Phosphorus 3.1 Magnesium 2.3 H Total Bilirubin 1.1 AST 62 H ALT 57 H Alkaline Phosphatase 57 Total Protein 6.0 Albumin 3.2 Globulin 2.9 Albumin/Globulin Ratio 1.1 Procalcitonin Urine Color Urine Appearance Urine pH Ur Specific [place] Urine Protein Urine Glucose (UA) Urine Ketones Urine Blood Urine Nitrate Urine Bilirubin Urine Urobilinogen Ur Leukocyte Esterase Urine RBC Urine WBC Ur Epithelial Cells Amorphous Sediment Urine Bacteria Coarse Granular Casts Urine Other 02/10/18 06:00 WBC RBC Hgb Hct MCV MCH MCHC RDW Plt Count MPV Gran % Lymph % (Auto) [place] % (Auto) Eos % (Auto) Baso % (Auto) Gran # Lymph # (Auto) [place] # (Auto) Eos # (Auto) Baso # (Auto) PT 13.5 H INR 1.17 H APTT 28.4 pCO2 pO2 HCO3 ABG pH ABG Total CO2 ABG O2 Saturation ABG O2 Content ABG Base Excess ABG Hemoglobin ABG Carboxyhemoglobin POC ABG HHb (Measured) ABG Methemoglobin ABG O2 Capacity Hgb O2 Saturation FiO2 Sodium Potassium Chloride Carbon Dioxide Anion Gap BUN Creatinine Est GFR ( Amer) Est GFR (Non-Af Amer) POC Glucose (mg/dL) Random Glucose Calcium Phosphorus Magnesium Total Bilirubin AST ALT Alkaline Phosphatase Total Protein Albumin Globulin Albumin/Globulin Ratio Procalcitonin Urine Color Urine Appearance Urine pH Ur Specific [place] Urine Protein Urine Glucose (UA) Urine Ketones Urine Blood Urine Nitrate Urine Bilirubin Urine Urobilinogen Ur Leukocyte Esterase Urine RBC Urine WBC Ur Epithelial Cells Amorphous Sediment Urine Bacteria Coarse Granular Casts Urine Other Assessment/Plan - Assessment and Plan (Free Text) Plan: Patient seen and examined on rounds with resident, agree note with following additions/exceptions: Patient is 57yomale with PMHx of CAD s/p CABG, HTN, hypothyroidism, s/p Vfib arrest in the field, s/p hypothermic protocol, s/p rewarming. Pt currently Afebrile, BP stable, comfortable in NAD, OFF Milrinone drip. Today, patient opens eyes, does track, follows simple commands Repeat CTH done, no acute pathology Repeat EEG reading pending Neurology following Will need PEG and Tracheostomy, LTACH CAD s/p CABG s/p stent HTN Hypothyroid s/p Vfib cardiac arrest CHF acute decompensated systolic rule out PNA Seizure disorder Recommend: - cont with vent support, low tidal vol ventilation, daily sedation vacation CPAP trials as tolerated - DC Propofol - DC Arterial line - DC central line - Duonebs PRN - Cont with broad spectrum abx, as per ID - maintain MAP >65 - ASA - follow up cardiology - Lasix 40mg PO daily - monitor HH - monitor LFTs - follow up renal - EEG, follow up read - follow up neurology - GI ppx - DVT ppx - Monitor in MICU - Will need tracheostomy/PEG, LTACH critical care time 30 minutes
[2018-02-10] MEDS: levETIRAcetam 1,500 MG in Sodium Chloride 0.9% 100 ML IV SCH ×2 (09:43→21:40)
[2018-02-10] MEDS: Valproate 1,000 MG in Sodium Chloride 0.9% 100 ML IVPB SCH ×2 (09:44→21:40)
--- NOTE | 2018-02-10 13:02 | CP.PCM.PN ---
Subjective - Date & Time of Evaluation Date of Evaluation: 02/10/18 Time of Evaluation: 09:20 - Subjective Subjective: Patient is being weaned off sedation, more awake today but still not following commands, still with low grade fevers. Still on the ventilator. Objective - Vital Signs/Intake and Output Vital Signs (last 24 hours): Temp Pulse Resp BP Pulse Ox 99.7 F H 69 24 134/71 96 02/10/18 05:30 02/10/18 06:00 02/10/18 05:03 02/10/18 05:30 02/10/18 05:30 Intake and Output: 02/09/18 02/10/18 18:59 06:59 Intake Total 500 850 Output Total 2600 1000 Balance -2100 -150 - Medications Medications: Current Medications Acetaminophen (Tylenol 325mg Tab) 650 mg PO Q6H PRN PRN Reason: Fever >100.4 F Last Admin: 02/09/18 10:36 Dose: 650 mg Albuterol/Ipratropium (Duoneb 3 Mg/0.5 Mg (3 Ml) Ud) 3 ml IH [id number] PRN PRN Reason: Shortness of Breath Last Admin: 02/09/18 03:30 Dose: 3 ml Artificial Tears (Artificial Tears) 0 ml OU Q8 PRN PRN Reason: Dry eyes Last Admin: 02/07/18 08:40 Dose: 2 drop Aspirin (Aspirin Chewable) 81 mg PO DAILY ON LICENSE OF [facility] Last Admin: 02/08/18 09:59 Dose: 81 mg Atorvastatin Calcium (Lipitor) 40 mg PO DIN ON LICENSE OF [facility] Last Admin: 02/09/18 17:27 Dose: 40 mg Carvedilol (Coreg) 6.25 mg PO BID ON LICENSE OF [facility] Last Admin: 02/09/18 17:27 Dose: 6.25 mg Furosemide (Lasix) 40 mg IVP DAILY ON LICENSE OF [facility] Last Admin: 02/09/18 09:50 Dose: 40 mg Hydrocortisone Sodium Succinate (Solu-Cortef) 25 mg IVP Q8 ON LICENSE OF [facility] Last Admin: 02/10/18 05:21 Dose: 25 mg Propofol (Diprivan) 1,000 mg in 100 mls @ 3.538 mls/hr IV .Q24H PRN; Protocol; 5 MCG/KG/MIN PRN Reason: TITRATE PER MD ORDER Last Titration: 02/10/18 06:05 Dose: 10 mcg/kg/min, 7.076 mls/hr Midazolam 100 mg/100ml in NS (Midazolam 100 Mg/100ml In Ns) 100 mg in 100 mls @ 1 mls/hr IV .Q24H PRN; Protocol; 1 MG/HR PRN Reason: Sedation Last Titration: 02/08/18 14:49 Dose: 0 mg/hr, 0 mls/hr Fentanyl Citrate (Fentanyl Citrate/Sodium Chloride 1 Mg/100 Ml) 1,000 mcg in 100 mls @ 2 mls/hr IV .Q24H PRN; Protocol; 20 MCG/HR PRN Reason: TITRATE PER MD ORDER Last Titration: 02/08/18 16:24 Dose: 0 mcg/hr, 0 mls/hr Doxycycline Hyclate 100 mg/ (Sodium Chloride) 100 mls @ 100 mls/hr IVPB Q12 DAMON PRN Reason: Protocol Last Admin: 02/09/18 21:36 Dose: 100 mls/hr Levetiracetam 1,500 mg/ Sodium (Chloride) 115 mls @ 460 mls/hr IV Q12 DAMON Last Admin: 02/09/18 21:36 Dose: 460 mls/hr Valproate Sodium 1,000 mg/ (Sodium Chloride) 110 mls @ 100 mls/hr IVPB Q12 DAMON Last Admin: 02/09/18 21:36 Dose: 100 mls/hr Vancomycin HCl (Vancomycin 1gm) 1 gm in 250 mls @ 167 mls/hr IVPB Q12H DAMON PRN Reason: Protocol Last Admin: 02/10/18 01:15 Dose: 167 mls/hr Acetaminophen (Ofirmev) 1,000 mg in 100 mls @ 400 mls/hr IVPB ONCE ONE Stop: 02/10/18 06:59 Insulin Human Regular (Humulin R Med) 0 units SC Q6 DAMON PRN Reason: Protocol Last Admin: 02/10/18 05:22 Dose: Not Given Lorazepam (Ativan) 1 mg IVP Q6H PRN; Protocol PRN Reason: Seizure activity Last Admin: 02/06/18 14:28 Dose: 1 mg Pantoprazole Sodium (Protonix Inj) 40 mg IVP Q12 DAMON Last Admin: 02/09/18 21:36 Dose: 40 mg - Labs Labs: 02/09/18 06:15 02/09/18 06:15 PT 13.1 SECONDS (9.4-12.5) H 02/09/18 06:15 INR 1.14 (0.93-1.08) H 02/09/18 06:15 APTT 22.5 Seconds (25.1-36.5) L 02/09/18 06:15 - Constitutional Appears: Other (intubated) - Head Exam Head Exam: NORMAL INSPECTION - ENT Exam Additional comments: ET tube in place - Respiratory Exam Respiratory Exam: Decreased Breath Sounds - Cardiovascular Exam Cardiovascular Exam: +S1, +S2 - GI/Abdominal Exam GI & Abdominal Exam: Soft. absent: Tenderness Assessment and Plan - Assessment and Plan (Free Text) Plan: Assessment Systemic Inflammatory response syndrome, consider due to cardiac arrest etiology to be determined, R/O sepsis from aspiration pneumonitis; with new onset fever, R/O new onset infection CAD S/P CABG HTN thyroid disease significant smoking history Plan continue IV Vancomycin day 2 and continue Cefepime day 7 and Doxycycline as well ; repeat blood, sputum cx are negative so far, follow up repeat urine cx; repeat PCT is now below 0.5 overall prognosis is poor will continue to monitor clinically follow up further recommendations of Neurology
[2018-02-10] MEDS: Albuterol-Ipratrop 3 mg / 0.5 (3 ml) UD IH PRN ×2 (13:13→20:16)
--- NOTE | 2018-02-10 13:30 | RAD ---
HISTORY: f/u pt intubated COMPARISON: 02/09/2018 FINDINGS: LUNGS: No active pulmonary disease. PLEURA: No significant pleural effusion identified, no pneumothorax apparent. CARDIOVASCULAR: Normal. OSSEOUS STRUCTURES: No significant abnormalities. VISUALIZED UPPER ABDOMEN: Normal. OTHER FINDINGS: None. IMPRESSION: Right internal jugular line in the SVC. Endotracheal and nasogastric tubes unchanged.
--- NOTE | 2018-02-10 13:42 | CP.PCM.PN ---
Subjective - Date & Time of Evaluation Date of Evaluation: 02/10/18 Time of Evaluation: 13:39 - Subjective Subjective: Mr. Armenta was seen and examined at the bedside in ICU. He remains on mechanical ventilator but able to follow simple commands such as opening his eyes, mouth, squeezing his hand, moving his lower extremities. This is an improvement form previous examination. At present he is on sedation vacation. There was no untoward events overnight. Objective - Vital Signs/Intake and Output Vital Signs (last 24 hours): Temp Pulse Resp BP Pulse Ox 99.9 F H 61 24 153/65 H 94 L 02/10/18 12:00 02/10/18 12:00 02/10/18 05:03 02/10/18 12:00 02/10/18 12:00 Intake and Output: 02/10/18 02/10/18 06:59 18:59 Intake Total 850 72 Output Total 1000 Balance -150 72 - Medications Medications: Current Medications Acetaminophen (Tylenol 325mg Tab) 650 mg PO Q6H PRN PRN Reason: Fever >100.4 F Last Admin: 02/09/18 10:36 Dose: 650 mg Albuterol/Ipratropium (Duoneb 3 Mg/0.5 Mg (3 Ml) Ud) 3 ml IH [id number] PRN PRN Reason: Shortness of Breath Last Admin: 02/10/18 13:13 Dose: 3 ml Artificial Tears (Artificial Tears) 0 ml OU Q8 PRN PRN Reason: Dry eyes Last Admin: 02/07/18 08:40 Dose: 2 drop Aspirin (Aspirin Chewable) 81 mg PO DAILY [facility] Last Admin: 02/10/18 11:55 Dose: 81 mg Atorvastatin Calcium (Lipitor) 40 mg PO DIN [facility] Last Admin: 02/09/18 17:27 Dose: 40 mg Carvedilol (Coreg) 6.25 mg PO BID [facility] Last Admin: 02/10/18 09:57 Dose: 6.25 mg Furosemide (Lasix) 40 mg IVP DAILY [facility] Last Admin: 02/10/18 09:58 Dose: 40 mg Heparin Sodium (Porcine) (Heparin) 5,000 units SC Q8 [facility]ON PRN Reason: Protocol Hydrocortisone Sodium Succinate (Solu-Cortef) 25 mg IVP DAILY [facility] Last Admin: 02/10/18 09:58 Dose: 25 mg Propofol (Diprivan) 1,000 mg in 100 mls @ 3.538 mls/hr IV .Q24H PRN; Protocol; 5 MCG/KG/MIN PRN Reason: TITRATE PER MD ORDER Last Titration: 02/10/18 09:49 Dose: 0 mcg/kg/min, 0 mls/hr Doxycycline Hyclate 100 mg/ (Sodium Chloride) 100 mls @ 100 mls/hr IVPB Q12 [facility]ON PRN Reason: Protocol Last Admin: 02/10/18 09:44 Dose: 100 mls/hr Levetiracetam 1,500 mg/ Sodium (Chloride) 115 mls @ 460 mls/hr IV Q12 [facility] Last Admin: 02/10/18 09:43 Dose: 460 mls/hr Valproate Sodium 1,000 mg/ (Sodium Chloride) 110 mls @ 100 mls/hr IVPB Q12 [facility] Last Admin: 02/10/18 09:44 Dose: 100 mls/hr Vancomycin HCl (Vancomycin 1gm) 1 gm in 250 mls @ 167 mls/hr IVPB Q12H [facility] PRN Reason: Protocol Last Admin: 02/10/18 11:55 Dose: 167 mls/hr Insulin Human Regular (Humulin R Med) 0 units SC Q6 [facility] PRN Reason: Protocol Last Admin: 02/10/18 12:05 Dose: Not Given Lorazepam (Ativan) 1 mg IVP Q6H PRN; Protocol PRN Reason: Seizure activity Last Admin: 02/06/18 14:28 Dose: 1 mg Pantoprazole Sodium (Protonix Inj) 40 mg IVP Q12 [facility] Last Admin: 02/10/18 09:58 Dose: 40 mg - Labs Labs: 02/10/18 06:00 02/10/18 06:00 PT 13.5 SECONDS (9.4-12.5) H 02/10/18 06:00 INR 1.17 (0.93-1.08) H 02/10/18 06:00 APTT 28.4 Seconds (25.1-36.5) 02/10/18 06:00 - Constitutional Appears: No Acute Distress - Head Exam Head Exam: NORMAL INSPECTION - Eye Exam Pupil Exam: Miosis, PERRL Additional comments: sluggish - Neurological Exam Neurological Exam: Awake Neuro motor strength exam: Left Upper Extremity: 2/1, Right Upper Extremity: 2/ , Left Lower Extremity: 2/, Right Lower Extremity: 2/ Additional comments: awake, follow simple commands which is an improvement from previous examination. Assessment and Plan (1) Anoxic brain injury Assessment & Plan: Case discussed with Dr. Pacheco, continue all current medical regimen, Recommend keppra and valproic acid. Recommend keep of head elevated at least 30 degrees, normotension, treat any electrolyte abnormalities. Status: Acute
--- NOTE | 2018-02-10 14:40 | CP.PCM.PN ---
<Shiva Burt - Last Filed: 02/10/18 15:00> Subjective - Date & Time of Evaluation Date of Evaluation: 02/10/18 Time of Evaluation: 07:05 - Subjective Subjective: Patient seen and examined at bedside intubated on sedation (propofol). Patient is able to follow commands, tracks with eyes, squeezes hands, moves foot when told, opens and closes his eyes on command. Patient is more responsive when spoken to in Arabic. ROS not obtained as patient is intubated. Objective - Vital Signs/Intake and Output Vital Signs (last 24 hours): Temp Pulse Resp BP Pulse Ox 99.7 F H 60 24 145/74 100 02/10/18 14:30 02/10/18 14:30 02/10/18 05:03 02/10/18 14:30 02/10/18 14:30 Intake and Output: 02/10/18 02/10/18 06:59 18:59 Intake Total 850 72 Output Total 1000 Balance -150 72 - Medications Medications: Current Medications Acetaminophen (Tylenol 325mg Tab) 650 mg PO Q6H PRN PRN Reason: Fever >100.4 F Last Admin: 02/09/18 10:36 Dose: 650 mg Albuterol/Ipratropium (Duoneb 3 Mg/0.5 Mg (3 Ml) Ud) 3 ml IH [id number] PRN PRN Reason: Shortness of Breath Last Admin: 02/10/18 13:13 Dose: 3 ml Artificial Tears (Artificial Tears) 0 ml OU Q8 PRN PRN Reason: Dry eyes Last Admin: 02/07/18 08:40 Dose: 2 drop Aspirin (Aspirin Chewable) 81 mg PO DAILY [facility] Last Admin: 02/10/18 11:55 Dose: 81 mg Atorvastatin Calcium (Lipitor) 40 mg PO DIN [facility] Last Admin: 02/09/18 17:27 Dose: 40 mg Carvedilol (Coreg) 6.25 mg PO BID [facility] Last Admin: 02/10/18 09:57 Dose: 6.25 mg Furosemide (Lasix) 40 mg IVP DAILY [facility] Last Admin: 02/10/18 09:58 Dose: 40 mg Heparin Sodium (Porcine) (Heparin) 5,000 units SC Q8 [facility]ON PRN Reason: Protocol Last Admin: 02/10/18 14:17 Dose: 5,000 units Hydrocortisone Sodium Succinate (Solu-Cortef) 25 mg IVP DAILY [facility] Last Admin: 02/10/18 09:58 Dose: 25 mg Propofol (Diprivan) 1,000 mg in 100 mls @ 3.538 mls/hr IV .Q24H PRN; Protocol; 5 MCG/KG/MIN PRN Reason: TITRATE PER MD ORDER Last Titration: 02/10/18 09:49 Dose: 0 mcg/kg/min, 0 mls/hr Doxycycline Hyclate 100 mg/ (Sodium Chloride) 100 mls @ 100 mls/hr IVPB Q12 [facility]ON PRN Reason: Protocol Last Admin: 02/10/18 09:44 Dose: 100 mls/hr Levetiracetam 1,500 mg/ Sodium (Chloride) 115 mls @ 460 mls/hr IV Q12 [facility] Last Admin: 02/10/18 09:43 Dose: 460 mls/hr Valproate Sodium 1,000 mg/ (Sodium Chloride) 110 mls @ 100 mls/hr IVPB Q12 [facility] Last Admin: 02/10/18 09:44 Dose: 100 mls/hr Vancomycin HCl (Vancomycin 1gm) 1 gm in 250 mls @ 167 mls/hr IVPB Q12H [facility] PRN Reason: Protocol Last Admin: 02/10/18 11:55 Dose: 167 mls/hr Insulin Human Regular (Humulin R Med) 0 units SC Q6 [facility]ON PRN Reason: Protocol Last Admin: 02/10/18 12:05 Dose: Not Given Lorazepam (Ativan) 1 mg IVP Q6H PRN; Protocol PRN Reason: Seizure activity Last Admin: 02/06/18 14:28 Dose: 1 mg Pantoprazole Sodium (Protonix Inj) 40 mg IVP Q12 [facility] Last Admin: 02/10/18 09:58 Dose: 40 mg - Labs Labs: 02/10/18 06:00 02/10/18 06:00 PT 13.5 SECONDS (9.4-12.5) H 02/10/18 06:00 INR 1.17 (0.93-1.08) H 02/10/18 06:00 APTT 28.4 Seconds (25.1-36.5) 02/10/18 06:00 - Head Exam Head Exam: ATRAUMATIC, NORMAL INSPECTION, NORMOCEPHALIC - ENT Exam ENT Exam: Mucous Membranes Dry Additional comments: intubated - Neck Exam Neck Exam: Normal Inspection. absent: Full ROM (full ROM can only currently be assessed from left to right which is in tact) - Respiratory Exam Respiratory Exam: absent: Clear to Ausculation Bilateral - Cardiovascular Exam Cardiovascular Exam: REGULAR RHYTHM, +S1, +S2 - GI/Abdominal Exam GI & Abdominal Exam: Soft, Diminished Bowel Sounds - Extremities Exam Extremities Exam: Normal Inspection - Neurological Exam Neurological Exam: Alert, Awake - Psychiatric Exam Additional comments: sedated - Skin Skin Exam: Normal Color, Warm Assessment and Plan - Assessment and Plan (Free Text) Assessment: 57 year old male with history of CAD s/p CABG and 4 stents, hypertension, thyroid disease, and tobacco abuse presenting s/p cardiac arrest secondary to a cardiac event (possible posterior wall infarct) presenting with cardiogenic shock. Plan: Cardiac Arrest - Etiology suspected to be 2/2 ventricular fibrillation - EKG reveals ST-T segments findings consistent with ischemia, possible inferior wall GA, intraventricular conduction delay evidenced by EKG and cardiac enzyme elevation - Echocardiogram reveals EF 20-25% with septum and apex severly hypokinetic. 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 No interictal epileptiform discharges. No seizure. EEG is abnormal. Repeat EEG read pending - Currently sedated - As per neuro: will continue with 1500mg IVPB Q 12 and additional depakote at 1000 mg IVPB q 12 Leukocytosis - ID consulted and following - Patient now febrile, as per ID: continue IV Vancomycin day 2 ,Cefepime day 7 and Doxycycline - Repeat blood cultures and sputum cultures are negative. Urine cultures still pending and procalcitonin decreased at 0.32 - Patient afebrile >24 hours Hypertension - Carvedilol started considering patient's EF of 23% GI/DVT ppx - Protonix gtt - Heparin gtt Dispo: internet technology manager referral for LTAC Case and Plan discussed with attending <Hank Ramírez - Last Filed: 02/10/18 17:19> Objective - Vital Signs/Intake and Output Vital Signs (last 24 hours): Temp Pulse Resp BP Pulse Ox 99.7 F H 60 24 145/74 100 02/10/18 14:30 02/10/18 14:30 02/10/18 05:03 02/10/18 14:30 02/10/18 14:30 Intake and Output: 02/10/18 02/10/18 06:59 18:59 Intake Total 850 72 Output Total 1000 Balance -150 72 - Medications Medications: Current Medications Acetaminophen (Tylenol 325mg Tab) 650 mg PO Q6H PRN PRN Reason: Fever >100.4 F Last Admin: 02/09/18 10:36 Dose: 650 mg Albuterol/Ipratropium (Duoneb 3 Mg/0.5 Mg (3 Ml) Ud) 3 ml IH [id number] PRN PRN Reason: Shortness of Breath Last Admin: 02/10/18 13:13 Dose: 3 ml Artificial Tears (Artificial Tears) 0 ml OU Q8 PRN PRN Reason: Dry eyes Last Admin: 02/07/18 08:40 Dose: 2 drop Aspirin (Aspirin Chewable) 81 mg PO DAILY [facility] Last Admin: 02/10/18 11:55 Dose: 81 mg Atorvastatin Calcium (Lipitor) 40 mg PO DIN [facility] Last Admin: 02/10/18 17:03 Dose: 40 mg Carvedilol (Coreg) 6.25 mg PO BID [facility] Last Admin: 02/10/18 09:57 Dose: 6.25 mg Furosemide (Lasix) 40 mg IVP DAILY [facility] Last Admin: 02/10/18 09:58 Dose: 40 mg Hydrocortisone Sodium Succinate (Solu-Cortef) 25 mg IVP DAILY [facility] Last Admin: 02/10/18 09:58 Dose: 25 mg Propofol (Diprivan) 1,000 mg in 100 mls @ 3.538 mls/hr IV .Q24H PRN; Protocol; 5 MCG/KG/MIN PRN Reason: TITRATE PER MD ORDER Last Titration: 02/10/18 15:19 Dose: 5 mcg/kg/min, 3.538 mls/hr Doxycycline Hyclate 100 mg/ (Sodium Chloride) 100 mls @ 100 mls/hr IVPB Q12 [facility]ON PRN Reason: Protocol Last Admin: 02/10/18 09:44 Dose: 100 mls/hr Levetiracetam 1,500 mg/ Sodium (Chloride) 115 mls @ 460 mls/hr IV Q12 [facility]ON Last Admin: 02/10/18 09:43 Dose: 460 mls/hr Valproate Sodium 1,000 mg/ (Sodium Chloride) 110 mls @ 100 mls/hr IVPB Q12 [facility] Last Admin: 02/10/18 09:44 Dose: 100 mls/hr Vancomycin HCl (Vancomycin 1gm) 1 gm in 250 mls @ 167 mls/hr IVPB Q12H [facility]ON PRN Reason: Protocol Last Admin: 02/10/18 11:55 Dose: 167 mls/hr Dexmedetomidine HCl (Precedex 400mcg/100ml) 400 mcg in 100 mls @ 9.934 mls/hr IV .Q10H4M PRN; Protocol; 0.4 MCG/KG/HR PRN Reason: sedation Last Admin: 02/10/18 17:06 Dose: 0.4 mcg/kg/hr, 9.934 mls/hr Insulin Human Regular (Humulin R Med) 0 units SC Q6 DAMON PRN Reason: Protocol Last Admin: 02/10/18 12:05 Dose: Not Given Lorazepam (Ativan) 1 mg IVP Q6H PRN; Protocol PRN Reason: Seizure activity Last Admin: 02/06/18 14:28 Dose: 1 mg Ondansetron HCl (Zofran Inj) 4 mg IVP Q6H PRN PRN Reason: Nausea/Vomiting Last Admin: 02/10/18 16:00 Dose: 4 mg Pantoprazole Sodium (Protonix Inj) 40 mg IVP Q12 [facility] Last Admin: 02/10/18 09:58 Dose: 40 mg - Labs Labs: 02/10/18 06:00 02/10/18 06:00 PT 13.5 SECONDS (9.4-12.5) H 02/10/18 06:00 INR 1.17 (0.93-1.08) H 02/10/18 06:00 APTT 28.4 Seconds (25.1-36.5) 02/10/18 06:00 Attending/Attestation - Attestation I have personally seen and examined this patient.: Yes I have fully participated in the care of the patient.: Yes I have reviewed all pertinent clinical information, including history, physical exam and plan: Yes Notes (Text): 02/10/18 17:17 Patient was seen and examined with certified medical coding specialist.Family is at bed side. 57 yrs male with PMH of CAD , SP CABG , HTN, hypothyroidism, had Vfib arrest in the field,was coded for about 10 mins and Intubated. Patient is SP hypothermic protocol and SP rewarming. Echo showed EF 25% , he off Milrinone drip and pressor now. Mental status is poor likely due to anoxic encephalopathy, will need tracheotomy /PEG , Patient is on Keppra for seizure Low grade fever likely central, on IV antibiotics as per ID.Cultures are negative. Prognosis is guarded. Management plan was discussed in detail with patient. who is at bed side. Education was provided.
--- NOTE | 2018-02-10 15:17 | PN ---
DATE: 02/10/2018 SUBJECTIVE: The patient is seen lying in bed in the ICU. He is seen in the presence of his . He remains intubated and on low-dose sedation. His eyes are open and he apparently followed some commands. He remains ventilator dependent. CURRENT MEDICATIONS: Include aspirin, Ativan p.r.n., carvedilol 6.25 mg b.i.d., Diprivan, doxycycline, DuoNeb inhaler, subcutaneous heparin, Lasix 40 mg daily, Keppra, Lipitor, Protonix, Solu-Cortef, vancomycin. OBJECTIVE : GENERAL: He is a middle-aged man, who remains critically ill. VITAL SIGNS: His blood pressure is 150/60 with a pulse of 60 and sinus, respirations are 16. Latest temperature is 99.7. HEENT: He is orally intubated. CHEST: Good breath sounds heard bilaterally. HEART: PMI displaced laterally with soft tones noted. ABDOMEN: Soft. Bowel sounds are present. EXTREMITIES: 1+ anasarca. DIAGNOSTIC DATA: Sodium is 150, potassium 3.6, BUN and creatinine 25 and 0.8. White count 8.5, hemoglobin and hematocrit 10.4 and 31.4 with platelet count of 123,000. Arterial blood gas shows 7.47, pCO2 of 39, pO2 of 85 on 35% FIO2. AST and ALT elevated at 62 and 57. IMPRESSION: 1. Status post out of hospital arrest with evidence of anoxic encephalopathy. 2. Acute myocardial fraction, hemodynamically stable. 3. Decompensated congestive heart failure. 4. Coronary artery disease, status post remote myocardial fraction and bypass surgery. 5. History of persistent tobacco abuse. 6. Rest of problems as noted including hypernatremia. RECOMMENDATIONS: Maintenance of a negative fluid balance should continue. Continue supportive care is planned. If he is unable to be extubated, the plans will likely be made for a tracheostomy within the next several days. His prognosis remains extremely guarded. Should he have full recovery, repeat cardiac catheterization at that time would be appropriate. We will continue to follow and make further recommendations as appropriate. Bimal Pina MD [facility] # [id number]
[2018-02-10] MEDS ORDERED: Dexmedetomidine 400mcg/100mL 400 MCG/100 ML BOTTLE IV PRN (16:25)
[2018-02-10] MEDS: Dexmedetomidine 400mcg/100mL 400 MCG/100 ML BOTTLE IV PRN (17:06)
[2018-02-11] MEDS: Dexmedetomidine 400mcg/100mL 400 MCG/100 ML BOTTLE IV PRN ×2 (00:01→07:12)
[2018-02-11] MEDS: Albuterol-Ipratrop 3 mg / 0.5 (3 ml) UD IH PRN ×2 (00:23→10:29)
[2018-02-11 05:56] LABS: ALT/SGPT 58 U/L (7-56); AST/SGOT 53 U/L (17-59); BLOOD UREA NITROGEN 26 mg/dL (7-21); CALCIUM 8.4 mg/dL (8.4-10.5); GFR AFRICAN-AMERICAN > 60; GFR NON-AFRICAN AMERICAN > 60
[2018-02-11 06:02] LABS: BASO # 0.01 K/mm3 (0.0-2.0); BASO % 0.1 % (0.0-3.0); EOS # 0.1 (0.0-0.7); EOS % 1.6 % (1.5-5.0); GRAN # 4.09 (1.4-6.5); HEMOGLOBIN 10.4 g/dL (14.0-18.0); LYMPH # 1.8 (1.2-3.4); LYMPH % 25.1 % (22.0-35.0); MEAN CELL VOLUME 88.1 fl (80.0-105.0); MEAN CORPUSCULAR HEMOGLOBIN 29.4 pg (25.0-35.0); MEAN CORPUSCULAR HGB CONC 33.3 g/dl (31.0-37.0); MONO # 1.3 (0.1-0.6); MONO % 17.2 % (1.0-6.0); RBC 3.54 10^6/uL (3.5-6.1); RED CELL DISTRIBUTION WIDTH 14.2 % (11.5-14.5); WHITE BLOOD COUNT 7.3 10^3/ul (4.5-11.0)
[2018-02-11 06:24] LABS: INR 1.2 (0.93-1.08); PARTIAL THROMBOPLASTIN TIME 27.3 Seconds (25.1-36.5); PROTHROMBIN TIME 13.8 SECONDS (9.4-12.5)
--- NOTE | 2018-02-11 07:32 | CP.PCM.PN ---
Subjective - Date & Time of Evaluation Date of Evaluation: 02/11/18 Time of Evaluation: 07:00 - Subjective Subjective: Patient seen and examined at bedside. Was being cleaned by nurses at the time. As per overnight nurse patient needed to be placed back on sedation (precedex) because he was wide awake and choking due to being aware of the intubation which resulted in cough induced vomiting. Patient made no bowel movements overnight. No fevers. Patient is now extubated on ventimask. Objective - Vital Signs/Intake and Output Vital Signs (last 24 hours): Temp Pulse Resp BP Pulse Ox 99.1 F 60 24 141/54 L 96 02/11/18 03:30 02/11/18 06:00 02/11/18 00:00 02/11/18 03:30 02/11/18 03:30 Intake and Output: 02/11/18 02/11/18 06:59 18:59 Intake Total 1968 Output Total 750 Balance 1218 - Medications Medications: Current Medications Acetaminophen (Tylenol 325mg Tab) 650 mg PO Q6H PRN PRN Reason: Fever >100.4 F Last Admin: 02/09/18 10:36 Dose: 650 mg Albuterol/Ipratropium (Duoneb 3 Mg/0.5 Mg (3 Ml) Ud) 3 ml IH [id number] PRN PRN Reason: Shortness of Breath Last Admin: 02/11/18 00:23 Dose: 3 ml Artificial Tears (Artificial Tears) 0 ml OU Q8 PRN PRN Reason: Dry eyes Last Admin: 02/07/18 08:40 Dose: 2 drop Aspirin (Aspirin Chewable) 81 mg PO DAILY [facility] Last Admin: 02/10/18 11:55 Dose: 81 mg Atorvastatin Calcium (Lipitor) 40 mg PO DIN [facility] Last Admin: 02/10/18 17:03 Dose: 40 mg Carvedilol (Coreg) 6.25 mg PO BID [facility] Last Admin: 02/10/18 17:24 Dose: 6.25 mg Furosemide (Lasix) 40 mg IVP DAILY [facility] Last Admin: 02/10/18 09:58 Dose: 40 mg Hydrocortisone Sodium Succinate (Solu-Cortef) 25 mg IVP DAILY [facility] Last Admin: 02/10/18 09:58 Dose: 25 mg Propofol (Diprivan) 1,000 mg in 100 mls @ 3.538 mls/hr IV .Q24H PRN; Protocol; 5 MCG/KG/MIN PRN Reason: TITRATE PER MD ORDER Last Titration: 02/10/18 17:00 Dose: 0 mcg/kg/min, 0 mls/hr Doxycycline Hyclate 100 mg/ (Sodium Chloride) 100 mls @ 100 mls/hr IVPB Q12 [facility]ON PRN Reason: Protocol Last Admin: 02/10/18 21:41 Dose: 100 mls/hr Levetiracetam 1,500 mg/ Sodium (Chloride) 115 mls @ 460 mls/hr IV Q12 [facility] Last Admin: 02/10/18 21:40 Dose: 460 mls/hr Valproate Sodium 1,000 mg/ (Sodium Chloride) 110 mls @ 100 mls/hr IVPB Q12 [facility] Last Admin: 02/10/18 21:40 Dose: 100 mls/hr Vancomycin HCl (Vancomycin 1gm) 1 gm in 250 mls @ 167 mls/hr IVPB Q12H [facility]ON PRN Reason: Protocol Last Admin: 02/10/18 23:54 Dose: 167 mls/hr Dexmedetomidine HCl (Precedex 400mcg/100ml) 400 mcg in 100 mls @ 9.934 mls/hr IV .Q10H4M PRN; Protocol; 0.4 MCG/KG/HR PRN Reason: sedation Last Admin: 02/11/18 07:12 Dose: 0.6 mcg/kg/hr, 14.901 mls/hr Insulin Human Regular (Humulin R Med) 0 units SC Q6 [facility]ON PRN Reason: Protocol Last Admin: 02/11/18 00:00 Dose: Not Given Lorazepam (Ativan) 1 mg IVP Q6H PRN; Protocol PRN Reason: Seizure activity Last Admin: 02/06/18 14:28 Dose: 1 mg Ondansetron HCl (Zofran Inj) 4 mg IVP Q6H PRN PRN Reason: Nausea/Vomiting Last Admin: 02/10/18 21:28 Dose: 4 mg Pantoprazole Sodium (Protonix Inj) 40 mg IVP Q12 [facility] Last Admin: 02/10/18 21:35 Dose: 40 mg - Labs Labs: 02/11/18 05:17 02/11/18 05:17 PT 13.8 SECONDS (9.4-12.5) H 02/11/18 05:17 INR 1.20 (0.93-1.08) H 02/11/18 05:17 APTT 27.3 Seconds (25.1-36.5) 02/11/18 05:17 - Head Exam Head Exam: ATRAUMATIC, NORMAL INSPECTION, NORMOCEPHALIC - ENT Exam ENT Exam: Mucous Membranes Dry - Respiratory Exam Respiratory Exam: Clear to Ausculation Bilateral. absent: Rhonchi, Wheezes - Cardiovascular Exam Cardiovascular Exam: +S1, +S2, Murmur - GI/Abdominal Exam GI & Abdominal Exam: Soft, Diminished Bowel Sounds - Extremities Exam Extremities Exam: absent: Normal Inspection (wound on bilateral heels of feet) - Neurological Exam Neurological Exam: Alert, Awake - Skin Skin Exam: Warm Additional comments: discoloration (Chronic) of lower extremities mostly due to venous stasis. Assessment and Plan - Assessment and Plan (Free Text) Assessment: 57 year old male with history of CAD s/p CABG and 4 stents, hypertension, thyroid disease, and tobacco abuse presenting s/p cardiac arrest secondary to a cardiac event (possible posterior wall infarct) presenting with cardiogenic shock, code freeze completed, patient now currently extubated. Plan: Cardiac Arrest - Etiology suspected to be 2/2 ventricular fibrillation - EKG reveals ST-T segments findings consistent with ischemia, possible inferior wall AR, intraventricular conduction delay evidenced by EKG and cardiac enzyme elevation - Echocardiogram reveals EF 20-25% with septum and apex severly hypokinetic. 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 No interictal epileptiform discharges. No seizure. EEG is abnormal. Repeat EEG shows slow brain electrical activity, but no seizures. - Currently off sedation - As per neuro: will continue with 1500mg IVPB Q 12 and additional depakote at 1000 mg IVPB q 12 Leukocytosis secvondary to aspiration pneumonia vs CAP - ID consulted and following - Patient now febrile, as per ID: antibiotics may be d/c'ed within 24 hours - Repeat blood cultures, urine cultures and sputum cultures are negative and procalcitonin decreased at 0.32 - Patient afebrile >48hours Hypertension - Carvedilol started considering patient's EF of 23% - Add lisinopril GI/DVT ppx - Protonix gtt - Heparin gtt Dispo: pathology manager referral for LTAC; work in progress. Patient's union states they are working to get necessary documents in order. Case and Plan discussed with attending Shiva Burt PGY1
--- NOTE | 2018-02-11 07:53 | CP.PCM.PN ---
Subjective - Date & Time of Evaluation Date of Evaluation: 02/11/18 Time of Evaluation: 07:00 - Subjective Subjective: Stable in CCU. Neuro improvement noted. V/S noted. RSR PE: lungs: few rhonchi Cor.: S1S2 Abd.: soft Ext. + edema Neuro.: sedated. I/O= 1350/3600 recorded Labs and ABGs noted: K+= 3.6 BCs all NG so far ECG: S. tachy., STTW changes CXR 02/10 : no active pulm disease, etc CT head noted. Objective - Vital Signs/Intake and Output Vital Signs (last 24 hours): Temp Pulse Resp BP Pulse Ox 99.1 F 60 24 141/54 L 96 02/11/18 03:30 02/11/18 06:00 02/11/18 00:00 02/11/18 03:30 02/11/18 03:30 Intake and Output: 02/11/18 02/11/18 06:59 18:59 Intake Total 1968 Output Total 750 Balance 1218 - Medications Medications: Current Medications Acetaminophen (Tylenol 325mg Tab) 650 mg PO Q6H PRN PRN Reason: Fever >100.4 F Last Admin: 02/09/18 10:36 Dose: 650 mg Albuterol/Ipratropium (Duoneb 3 Mg/0.5 Mg (3 Ml) Ud) 3 ml IH [id number] PRN PRN Reason: Shortness of Breath Last Admin: 02/11/18 00:23 Dose: 3 ml Artificial Tears (Artificial Tears) 0 ml OU Q8 PRN PRN Reason: Dry eyes Last Admin: 02/07/18 08:40 Dose: 2 drop Aspirin (Aspirin Chewable) 81 mg PO DAILY [facility] Last Admin: 02/10/18 11:55 Dose: 81 mg Atorvastatin Calcium (Lipitor) 40 mg PO DIN [facility] Last Admin: 02/10/18 17:03 Dose: 40 mg Carvedilol (Coreg) 6.25 mg PO BID [facility] Last Admin: 02/10/18 17:24 Dose: 6.25 mg Furosemide (Lasix) 40 mg IVP DAILY [facility] Last Admin: 02/10/18 09:58 Dose: 40 mg Hydrocortisone Sodium Succinate (Solu-Cortef) 25 mg IVP DAILY [facility] Last Admin: 02/10/18 09:58 Dose: 25 mg Propofol (Diprivan) 1,000 mg in 100 mls @ 3.538 mls/hr IV .Q24H PRN; Protocol; 5 MCG/KG/MIN PRN Reason: TITRATE PER MD ORDER Last Titration: 02/10/18 17:00 Dose: 0 mcg/kg/min, 0 mls/hr Doxycycline Hyclate 100 mg/ (Sodium Chloride) 100 mls @ 100 mls/hr IVPB Q12 DAMON PRN Reason: Protocol Last Admin: 02/10/18 21:41 Dose: 100 mls/hr Levetiracetam 1,500 mg/ Sodium (Chloride) 115 mls @ 460 mls/hr IV Q12 DAMON Last Admin: 02/10/18 21:40 Dose: 460 mls/hr Valproate Sodium 1,000 mg/ (Sodium Chloride) 110 mls @ 100 mls/hr IVPB Q12 DAMON Last Admin: 02/10/18 21:40 Dose: 100 mls/hr Vancomycin HCl (Vancomycin 1gm) 1 gm in 250 mls @ 167 mls/hr IVPB Q12H DAMON PRN Reason: Protocol Last Admin: 02/10/18 23:54 Dose: 167 mls/hr Dexmedetomidine HCl (Precedex 400mcg/100ml) 400 mcg in 100 mls @ 9.934 mls/hr IV .Q10H4M PRN; Protocol; 0.4 MCG/KG/HR PRN Reason: sedation Last Admin: 02/11/18 07:12 Dose: 0.6 mcg/kg/hr, 14.901 mls/hr Insulin Human Regular (Humulin R Med) 0 units SC Q6 DAMON PRN Reason: Protocol Last Admin: 02/11/18 00:00 Dose: Not Given Lorazepam (Ativan) 1 mg IVP Q6H PRN; Protocol PRN Reason: Seizure activity Last Admin: 02/06/18 14:28 Dose: 1 mg Ondansetron HCl (Zofran Inj) 4 mg IVP Q6H PRN PRN Reason: Nausea/Vomiting Last Admin: 02/10/18 21:28 Dose: 4 mg Pantoprazole Sodium (Protonix Inj) 40 mg IVP Q12 DAMON Last Admin: 02/10/18 21:35 Dose: 40 mg - Labs Labs: 02/11/18 05:17 02/11/18 05:17 PT 13.8 SECONDS (9.4-12.5) H 02/11/18 05:17 INR 1.20 (0.93-1.08) H 02/11/18 05:17 APTT 27.3 Seconds (25.1-36.5) 02/11/18 05:17 Assessment and Plan - Assessment and Plan (Free Text) Assessment: Cardiac arrest at home Acute VA/CHF/S/P resuscitation in the field Anoxic encephalopathy CAD/VA/Remote CABG/No regular cardiac f/u HBP Hypothyroidism Smoker Plan: IV Lasix As per Neuro., GI, Renal, Intensivists Monitor: labs, I/O, sats., ABGs, CXRs, H/H neuro status, etc Will follow.
[2018-02-11] MEDS: Valproate 1,000 MG in Sodium Chloride 0.9% 100 ML IVPB SCH ×2 (09:29→22:02)
[2018-02-11] MEDS: levETIRAcetam 1,500 MG in Sodium Chloride 0.9% 100 ML IV SCH ×2 (09:30→22:03)
--- NOTE | 2018-02-11 09:35 | CP.CCUPN ---
CCU Subjective - Physician Review Subjective (Free Text): 02/05/18 12:12 Start rewarming now (less than 0.5 degree per hr till 98 F) No acute event overnight. Propofol 15 milrinone gtt 0.375 Amiodarino gtt should be stopped at noon now HR > [address] Soto: change dubneb PRN 02/07/18 12:26 Yesterday, vacation holiday but seen seizure Today 1 BM overnight, soft brown U/O 320 and gastric output 520 / over 24 hours 02/08/18 08:17 No seisure observed overnight. Cut down on sedation No BM, No gap reflex Dark stomach output 100 CC. U/O 700 cc/24 hrs 02/10/18 10:02 Gastric suction produces bilous, about 200 CC overnight 02/11/18 09:31 ON PS. RR 9. Wait for him to wake up a bit. possibly extubate CCU Objective - Vital Signs / Intake & Output Vital Signs (Last 4 hours): Vital Signs Temp Pulse BP Pulse Ox 02/11/18 09:27 140/68 02/11/18 09:00 98.1 F 67 140/68 98 02/11/18 08:30 97.9 F 61 136/69 97 02/11/18 08:00 97.9 F 62 129/56 L 97 02/11/18 07:59 97.9 F 65 98 02/11/18 07:30 97.7 F 58 L 148/52 L 96 02/11/18 07:00 97.9 F 62 123/52 L 95 02/11/18 06:35 97.3 F L 74 128/65 95 02/11/18 06:00 98.4 F 63 129/48 L 96 Intake and Output (Last 8hrs): Intake & Output 02/10/18 02/11/18 02/11/18 22:59 06:59 14:59 Intake Total 1465 1947 Output Total 2310 750 Balance -845 1197 Weight 210 lb Intake: IV 635 347 Left 0 Left Forearm 0 Right Antecubital 0 Right Internal Jugular 606 168 Oral 0 Tube Feeding 230 450 TPN/PPN 0 Blood Product 0 Lipid 0 Albumin 0 Other 600 1150 Output: Gastric Amount 210 Stomach 210 Urine 2100 750 Urethral (Garcia) 2100 750 Stool 0 Urine/Stool Mix 0 Emesis 0 Oral Regurgitation 0 Other 0 Other: # Voids Urethral (Garcia) 0 # Bowel Movements 0 0 - Physical Exam Head: Positive for: Atraumatic, Normocephalic Pupils: Positive for: PERRL Conjunctiva: Positive for: Normal Mouth: Positive for: Moist Mucous Membranes Respiratory/Chest: Positive for: Clear to Auscultation, Good Air Exchange ( Equal breath sounds bilaterally) Cardiovascular: Positive for: Regular Rate and Rhythm, Normal S1, S2. Negative for: Murmurs Abdomen: Negative for: Distention, Peritoneal Signs Upper Extremity: Negative for: Cyanosis, Edema Lower Extremity: Negative for: Edema Neurological: Positive for: Normal Sensory Function (Responsive to painful stimuli while propofol 15), Other (open and close eyes by command) Skin: Positive for: Warm, Dry, Normal Color. Negative for: Rashes - Medications Active Medications: Active Medications Generic Name Dose Route Start Last Admin Trade Name Freq PRN Reason Stop Dose Admin Acetaminophen 650 mg 02/09/18 09:59 02/09/18 10:36 Tylenol 325mg Tab PO 650 mg Q6H PRN Administration Fever >100.4 F Albuterol/Ipratropium 3 ml 02/05/18 12:47 02/11/18 00:23 Duoneb 3 Mg/0.5 Mg (3 Ml) Ud IH 3 ml [id number] PRN Administration Shortness of Breath Artificial Tears 0 ml 02/04/18 15:56 02/07/18 08:40 Artificial Tears OU 2 drop Q8 PRN Administration Dry eyes Aspirin 81 mg 02/07/18 10:00 02/10/18 11:55 Aspirin Chewable PO 81 mg DAILY DAMON Administration Atorvastatin Calcium 40 mg 02/04/18 17:00 02/10/18 17:03 Lipitor PO 40 mg DIN DAMON Administration Carvedilol 6.25 mg 02/09/18 10:00 02/10/18 17:24 Coreg PO 6.25 mg BID DAMON Administration Furosemide 40 mg 02/08/18 08:00 02/11/18 09:27 Lasix IVP 40 mg DAILY DAMON Administration Hydrocortisone Sodium Succinate 25 mg 02/10/18 10:00 02/11/18 09:28 Solu-Cortef IVP 25 mg DAILY DAMON Administration Propofol 1,000 mg in 100 mls @ 3.538 mls/hr 02/04/18 05:03 06/13/18 17:00 Diprivan IV 0 mcg/kg/min .Q24H PRN 0 mls/hr TITRATE PER MD ORDER Titration Protocol 5 MCG/KG/MIN Doxycycline Hyclate 100 mg/ 100 mls @ 100 mls/hr 02/07/18 22:00 02/11/18 09: 29 Sodium Chloride IVPB 100 mls/hr Q12 DAMON Administration Protocol Levetiracetam 1,500 mg/ Sodium 115 mls @ 460 mls/hr 02/08/18 22:00 02/11/18 09:30 Chloride IV 460 mls/hr Q12 DAMON Administration Valproate Sodium 1,000 mg/ 110 mls @ 100 mls/hr 02/08/18 12:00 02/11/18 09:29 Sodium Chloride IVPB 100 mls/hr Q12 DAMON Administration Vancomycin HCl 1 gm in 250 mls @ 167 mls/hr 02/09/18 12:15 02/10/18 23:54 Vancomycin 1gm IVPB 167 mls/hr Q12H DAMON Administration Protocol Dexmedetomidine HCl 400 mcg in 100 mls @ 9.934 mls/hr 02/10/18 16:27 07:12 Precedex 400mcg/100ml IV 0.6 mcg/kg/hr .Q10H4M PRN 14.901 mls/hr sedation Administration Protocol 0.4 MCG/KG/HR Insulin Human Regular 0 units 02/05/18 12:00 02/11/18 00:00 Humulin R Med SC Not Given Q6 DAMON Protocol Lorazepam 1 mg 02/05/18 18:40 02/06/18 14:28 Ativan IVP 1 mg Q6H PRN Administration Seizure activity Protocol Ondansetron HCl 4 mg 02/10/18 15:28 02/11/18 09:24 Zofran Inj IVP 4 mg Q6H PRN Administration Nausea/Vomiting Pantoprazole Sodium 40 mg 02/08/18 22:00 02/11/18 09:28 Protonix Inj IVP 40 mg Q12 DAMON Administration - Patient Studies Lab Studies: Microbiology Studies 02/09/18 07:00 Blood Culture - Preliminary Blood-Venous NO GROWTH AFTER 48 HOURS 02/09/18 07:30 Blood Culture - Preliminary Blood-Venous NO GROWTH AFTER 48 HOURS 02/09/18 17:09 Urine Culture - Final Urine,Garcia No Growth (<1,000 CFU/ML) 02/05/18 06:30 Blood Culture - Final Blood NO GROWTH AFTER 5 DAYS Gram Stain - Final TEST NOT PERFORMED Lab Studies 02/11/18 02/11/18 02/11/18 Range/Units 06:19 05:17 05:17 WBC (4.5-11.0) 10^3/ul RBC (3.5-6.1) 10^6/uL Hgb (14.0-18.0) g/dL Hct (42.0-52.0) % MCV (80.0-105.0) fl MCH (25.0-35.0) pg MCHC (31.0-37.0) g/dl RDW (11.5-14.5) % Plt Count (120.0-450.0) 10^3/uL MPV (7.0-11.0) fl Gran % (50.0-68.0) % Lymph % (Auto) (22.0-35.0) % [place] % (Auto) (1.0-6.0) % Eos % (Auto) (1.5-5.0) % Baso % (Auto) (0.0-3.0) % Gran # (1.4-6.5) Lymph # (Auto) (1.2-3.4) [place] # (Auto) (0.1-0.6) Eos # (Auto) (0.0-0.7) Baso # (Auto) (0.0-2.0) K/mm3 PT 13.8 H (9.4-12.5) SECONDS INR 1.20 H (0.93-1.08) APTT 27.3 (25.1-36.5) Seconds Sodium (132-148) mmol/L Potassium (3.6-5.0) mmol/L Chloride (98-107) mmol/L Carbon Dioxide (21-33) mmol/L Anion Gap (10-20) BUN (7-21) mg/dL Creatinine (0.8-1.5) mg/dl Est GFR ( Amer) Est GFR (Non-Af Amer) POC Glucose (mg/dL) 147 H (65-110) mg/dL Random Glucose (70-110) mg/dL Calcium (8.4-10.5) mg/dL Phosphorus (2.5-4.5) mg/dL Magnesium (1.7-2.2) mg/dL Total Bilirubin (0.2-1.3) mg/dL AST (17-59) U/L ALT (7-56) U/L Alkaline Phosphatase (38-126) U/L Total Protein (5.8-8.3) g/dL Albumin (3.0-4.8) g/dL Globulin gm/dL Albumin/Globulin Ratio (1.1-1.8) Valproic Acid 59 (50.0-100.0) ug/mL Crossmatch 02/11/18 02/11/18 02/10/18 Range/Units 05:17 05:17 23:59 WBC 7.3 (4.5-11.0) 10^3/ul RBC 3.54 (3.5-6.1) 10^6/uL Hgb 10.4 L (14.0-18.0) g/dL Hct 31.2 L (42.0-52.0) % MCV 88.1 (80.0-105.0) fl MCH 29.4 (25.0-35.0) pg MCHC 33.3 (31.0-37.0) g/dl RDW 14.2 (11.5-14.5) % Plt Count 127 (120.0-450.0) 10^3/uL MPV 10.0 (7.0-11.0) fl Gran % 56.0 (50.0-68.0) % Lymph % (Auto) 25.1 (22.0-35.0) % [place] % (Auto) 17.2 H (1.0-6.0) % Eos % (Auto) 1.6 (1.5-5.0) % Baso % (Auto) 0.1 (0.0-3.0) % Gran # 4.09 (1.4-6.5) Lymph # (Auto) 1.8 (1.2-3.4) [place] # (Auto) 1.3 H (0.1-0.6) Eos # (Auto) 0.1 (0.0-0.7) Baso # (Auto) 0.01 (0.0-2.0) K/mm3 PT (9.4-12.5) SECONDS INR (0.93-1.08) APTT (25.1-36.5) Seconds Sodium 148 (132-148) mmol/L Potassium 3.6 (3.6-5.0) mmol/L Chloride 108 H (98-107) mmol/L Carbon Dioxide 29 (21-33) mmol/L Anion Gap 14 (10-20) BUN 26 H (7-21) mg/dL Creatinine 0.8 (0.8-1.5) mg/dl Est GFR ( Amer) > 60 Est GFR (Non-Af Amer) > 60 POC Glucose (mg/dL) 130 H (65-110) mg/dL Random Glucose 172 H (70-110) mg/dL Calcium 8.4 (8.4-10.5) mg/dL Phosphorus 3.2 (2.5-4.5) mg/dL Magnesium 2.2 (1.7-2.2) mg/dL Total Bilirubin 1.1 (0.2-1.3) mg/dL AST 53 (17-59) U/L ALT 58 H (7-56) U/L Alkaline Phosphatase 58 (38-126) U/L Total Protein 5.9 (5.8-8.3) g/dL Albumin 3.0 (3.0-4.8) g/dL Globulin 2.9 gm/dL Albumin/Globulin Ratio 1.0 L (1.1-1.8) Valproic Acid (50.0-100.0) ug/mL Crossmatch 02/10/18 02/10/18 02/08/18 Range/Units 17:32 11:54 11:45 WBC (4.5-11.0) 10^3/ul RBC (3.5-6.1) 10^6/uL Hgb (14.0-18.0) g/dL Hct (42.0-52.0) % MCV (80.0-105.0) fl MCH (25.0-35.0) pg MCHC (31.0-37.0) g/dl RDW (11.5-14.5) % Plt Count (120.0-450.0) 10^3/uL MPV (7.0-11.0) fl Gran % (50.0-68.0) % Lymph % (Auto) (22.0-35.0) % [place] % (Auto) (1.0-6.0) % Eos % (Auto) (1.5-5.0) % Baso % (Auto) (0.0-3.0) % Gran # (1.4-6.5) Lymph # (Auto) (1.2-3.4) [place] # (Auto) (0.1-0.6) Eos # (Auto) (0.0-0.7) Baso # (Auto) (0.0-2.0) K/mm3 PT (9.4-12.5) SECONDS INR (0.93-1.08) APTT (25.1-36.5) Seconds Sodium (132-148) mmol/L Potassium (3.6-5.0) mmol/L Chloride (98-107) mmol/L Carbon Dioxide (21-33) mmol/L Anion Gap (10-20) BUN (7-21) mg/dL Creatinine (0.8-1.5) mg/dl Est GFR ( Amer) Est GFR (Non-Af Amer) POC Glucose (mg/dL) 117 H 112 H (65-110) mg/dL Random Glucose (70-110) mg/dL Calcium (8.4-10.5) mg/dL Phosphorus (2.5-4.5) mg/dL Magnesium (1.7-2.2) mg/dL Total Bilirubin (0.2-1.3) mg/dL AST (17-59) U/L ALT (7-56) U/L Alkaline Phosphatase (38-126) U/L Total Protein (5.8-8.3) g/dL Albumin (3.0-4.8) g/dL Globulin gm/dL Albumin/Globulin Ratio (1.1-1.8) Valproic Acid (50.0-100.0) ug/mL Crossmatch See Detail Laboratory Results - last 24 hr 02/08/18 02/10/18 02/10/18 11:45 11:54 17:32 WBC RBC Hgb Hct MCV MCH MCHC RDW Plt Count MPV Gran % Lymph % (Auto) [place] % (Auto) Eos % (Auto) Baso % (Auto) Gran # Lymph # (Auto) [place] # (Auto) Eos # (Auto) Baso # (Auto) PT INR APTT Sodium Potassium Chloride Carbon Dioxide Anion Gap BUN Creatinine Est GFR ( Amer) Est GFR (Non-Af Amer) POC Glucose (mg/dL) 112 H 117 H Random Glucose Calcium Phosphorus Magnesium Total Bilirubin AST ALT Alkaline Phosphatase Total Protein Albumin Globulin Albumin/Globulin Ratio Valproic Acid Crossmatch See Detail 02/10/18 02/11/18 02/11/18 23:59 05:17 05:17 WBC 7.3 RBC 3.54 Hgb 10.4 L Hct 31.2 L MCV 88.1 MCH 29.4 MCHC 33.3 RDW 14.2 Plt Count 127 MPV 10.0 Gran % 56.0 Lymph % (Auto) 25.1 [place] % (Auto) 17.2 H Eos % (Auto) 1.6 Baso % (Auto) 0.1 Gran # 4.09 Lymph # (Auto) 1.8 [place] # (Auto) 1.3 H Eos # (Auto) 0.1 Baso # (Auto) 0.01 PT INR APTT Sodium 148 Potassium 3.6 Chloride 108 H Carbon Dioxide 29 Anion Gap 14 BUN 26 H Creatinine 0.8 Est GFR ( Amer) > 60 Est GFR (Non-Af Amer) > 60 POC Glucose (mg/dL) 130 H Random Glucose 172 H Calcium 8.4 Phosphorus 3.2 Magnesium 2.2 Total Bilirubin 1.1 AST 53 ALT 58 H Alkaline Phosphatase 58 Total Protein 5.9 Albumin 3.0 Globulin 2.9 Albumin/Globulin Ratio 1.0 L Valproic Acid Crossmatch 02/11/18 02/11/18 02/11/18 05:17 05:17 06:19 WBC RBC Hgb Hct MCV MCH MCHC RDW Plt Count MPV Gran % Lymph % (Auto) [place] % (Auto) Eos % (Auto) Baso % (Auto) Gran # Lymph # (Auto) [place] # (Auto) Eos # (Auto) Baso # (Auto) PT 13.8 H INR 1.20 H APTT 27.3 Sodium Potassium Chloride Carbon Dioxide Anion Gap BUN Creatinine Est GFR ( Amer) Est GFR (Non-Af Amer) POC Glucose (mg/dL) 147 H Random Glucose Calcium Phosphorus Magnesium Total Bilirubin AST ALT Alkaline Phosphatase Total Protein Albumin Globulin Albumin/Globulin Ratio Valproic Acid 59 Crossmatch Fingerstick Blood Sugar Results: 147 Assessment/Plan - Assessment and Plan (Free Text) Plan: Mr Ordonez, 57 M with PMHx of CAD s/p CABG with 4 stents, HTN, hypothyroidism , s/p V. fib arrest in the field, s/p hypothermic protocol, s/p rewarming, day _ __6____. CXR showed pulmonary edema, improved, but cannot rule out pneumonia. Failed breathing trial on Thursday because of seizure. Keppra and Valproate is increased. No more seizure. CTH done on admission, c/w anoxic brain injury; repeat CTH no acute changes. CXR noted with bilateral pulm vasc congestion, cannot rule out infiltrate. Pt is able to open and close eyes on command when propofol is 10. This AM, try wean off vent: PEEP decrease of 5, and Off propofol. Delayed tubefeed for weaning protocol, but need free water flushes A: 1. S/p V fib cardiac arrest. hx CAD s/p CABG s/p stent 2. Anoxic brain injury and seizure, ventilator dependent respiratory failure, intubation day ___8___ 3. Cardiogenic shock vs Septic shock. off pressors. off milrinon gtt. tapering stress steroid. 4. Acute decompensated systolic CHF - improved 4. Pulm edema cannot rule out PNA - still on ABX 5. Hx hypothyrodism 6. Has ruled out GI bleed. Likely caused by continuous low suction and stress ulcers P: Neuro precedex 0.2 EEG while on sedation (02/04): No seizure EEG (02/08): pending read Keppra 1500 mg Q12. valproate 1000 Q12. CTH done on admission, c/w anoxic brain injury; repeat CTH (02/08) no acute changes. Pulm Pressor support now. may extubate in 30 mins Duonebs PRN CXR: slight bibasilar infiltrate (new), Impriove in pulm edema Card Echo 20-25%. Septal and apex severely hypokinetic Hold ASA for dark gastric aspiration Lasix 40 IV daily Lipitor, ASA GI Protonix [address] Tinsley OK tube feed OK for PO meds swallow eval tomorrow 3600 U/O in 24 hours BUN 0.8 Endo Goal: Sugar 140-180 A1C__6.7___ Heme Off heparin gtt H/H stable Type and Cross ID OFF Solu-cortef IV Vancomycin day 2 and continue Cefepime day 7 and Doxycycline as well; repeat blood, sputum cx are negative so far, follow up repeat urine cx; repeat PCT is now below 0.5 f/u ID re: stopping ABX PVX SCD, protonix BID Dispo plan Will remove central line today s/r/d/ w Dr Galo
[2018-02-11] MEDS ORDERED: Phenol Topical 1.4% Throat Spray (180 ml) MT PRN (11:24)
--- NOTE | 2018-02-11 12:07 | CP.PCM.PN ---
Subjective - Date & Time of Evaluation Date of Evaluation: 02/11/18 Time of Evaluation: 12:05 - Subjective Subjective: Mr. Armenta was seen and examined at the bedside in ICU. He is awake, on venti mask for oxygen supplement. He opens his eyes spontaneously, follows commands with his upper extremities stronger than the lower. The EEG done 2017 showed slow brain electrical activity, but no seizures. Valproic acid level is 59. There was no untoward events overnight. Objective - Vital Signs/Intake and Output Vital Signs (last 24 hours): Temp Pulse Resp BP Pulse Ox 98.1 F 67 32 H 140/68 98 02/11/18 09:00 02/11/18 09:00 02/11/18 04:00 02/11/18 09:27 02/11/18 09:00 Intake and Output: 02/11/18 02/11/18 06:59 18:59 Intake Total 1968 Output Total 750 Balance 1218 - Medications Medications: Current Medications Acetaminophen (Tylenol 325mg Tab) 650 mg PO Q6H PRN PRN Reason: Fever >100.4 F Last Admin: 02/09/18 10:36 Dose: 650 mg Albuterol/Ipratropium (Duoneb 3 Mg/0.5 Mg (3 Ml) Ud) 3 ml IH [id number] PRN PRN Reason: Shortness of Breath Last Admin: 02/11/18 10:29 Dose: 3 ml Artificial Tears (Artificial Tears) 0 ml OU Q8 PRN PRN Reason: Dry eyes Last Admin: 02/07/18 08:40 Dose: 2 drop Aspirin (Aspirin Chewable) 81 mg PO DAILY [facility] Last Admin: 02/10/18 11:55 Dose: 81 mg Atorvastatin Calcium (Lipitor) 40 mg PO DIN [facility] Last Admin: 02/10/18 17:03 Dose: 40 mg Carvedilol (Coreg) 6.25 mg PO BID [facility] Last Admin: 02/10/18 17:24 Dose: 6.25 mg Furosemide (Lasix) 40 mg IVP DAILY [facility] Last Admin: 02/11/18 09:27 Dose: 40 mg Doxycycline Hyclate 100 mg/ (Sodium Chloride) 100 mls @ 100 mls/hr IVPB Q12 DAMON PRN Reason: Protocol Last Admin: 02/11/18 09:29 Dose: 100 mls/hr Levetiracetam 1,500 mg/ Sodium (Chloride) 115 mls @ 460 mls/hr IV Q12 DAMON Last Admin: 02/11/18 09:30 Dose: 460 mls/hr Valproate Sodium 1,000 mg/ (Sodium Chloride) 110 mls @ 100 mls/hr IVPB Q12 DAMON Last Admin: 02/11/18 09:29 Dose: 100 mls/hr Vancomycin HCl (Vancomycin 1gm) 1 gm in 250 mls @ 167 mls/hr IVPB Q12H DAMON PRN Reason: Protocol Last Admin: 02/10/18 23:54 Dose: 167 mls/hr Insulin Human Regular (Humulin R Med) 0 units SC Q6 DAMON PRN Reason: Protocol Last Admin: 02/11/18 00:00 Dose: Not Given Lisinopril (Zestril) 10 mg PO DAILY DAMON Lorazepam (Ativan) 1 mg IVP Q6H PRN; Protocol PRN Reason: Seizure activity Last Admin: 02/06/18 14:28 Dose: 1 mg Ondansetron HCl (Zofran Inj) 4 mg IVP Q6H PRN PRN Reason: Nausea/Vomiting Last Admin: 02/11/18 09:24 Dose: 4 mg Pantoprazole Sodium (Protonix Inj) 40 mg IVP Q12 DAMON Last Admin: 02/11/18 09:28 Dose: 40 mg Phenol/Menthol (Phenaseptic 1.4% Throat [place]) 1 ml MT Q2H PRN PRN Reason: Sore Throat - Labs Labs: 02/11/18 05:17 02/11/18 05:17 PT 13.8 SECONDS (9.4-12.5) H 02/11/18 05:17 INR 1.20 (0.93-1.08) H 02/11/18 05:17 APTT 27.3 Seconds (25.1-36.5) 02/11/18 05:17 - Constitutional Appears: No Acute Distress - Head Exam Head Exam: NORMAL INSPECTION - Eye Exam Eye Exam: Normal appearance Pupil Exam: Miosis, PERRL Additional comments: 2 mm- brisk. - Neurological Exam Neurological Exam: Awake Neuro motor strength exam: Left Upper Extremity: 3, Right Upper Extremity: 3, Left Lower Extremity: 2/1, Right Lower Extremity: 2/1 Additional comments: awake, follows commands, sensation is intact. Assessment and Plan (1) Anoxic brain injury Assessment & Plan: Case discussed with Dr. Pacheco, continue all current medical, physical, occupational, and speech therapies. Recommend to repeat CT of the head without contrast today, maintain depakote dose, pending keppra level, normotension, keep head of the bed elevated at least 30 degrees, and treat any underlying electrolyte abnormalities. Status: Acute
--- NOTE | 2018-02-11 12:15 | CP.PCM.PN ---
Subjective - Date & Time of Evaluation Date of Evaluation: 02/11/18 Time of Evaluation: 09:25 - Subjective Subjective: Patient continues to be on the ventilator, no fevers currently. Objective - Vital Signs/Intake and Output Vital Signs (last 24 hours): Temp Pulse Resp BP Pulse Ox 99.1 F 63 24 141/54 L 96 02/11/18 03:30 02/11/18 03:30 02/11/18 00:00 02/11/18 03:30 02/11/18 03:30 Intake and Output: 02/10/18 02/11/18 18:59 06:59 Intake Total 1472 100 Output Total 2310 Balance -838 100 - Medications Medications: Current Medications Acetaminophen (Tylenol 325mg Tab) 650 mg PO Q6H PRN PRN Reason: Fever >100.4 F Last Admin: 02/09/18 10:36 Dose: 650 mg Albuterol/Ipratropium (Duoneb 3 Mg/0.5 Mg (3 Ml) Ud) 3 ml IH [id number] PRN PRN Reason: Shortness of Breath Last Admin: 02/11/18 00:23 Dose: 3 ml Artificial Tears (Artificial Tears) 0 ml OU Q8 PRN PRN Reason: Dry eyes Last Admin: 02/07/18 08:40 Dose: 2 drop Aspirin (Aspirin Chewable) 81 mg PO DAILY [facility] Last Admin: 02/10/18 11:55 Dose: 81 mg Atorvastatin Calcium (Lipitor) 40 mg PO DIN [facility] Last Admin: 02/10/18 17:03 Dose: 40 mg Carvedilol (Coreg) 6.25 mg PO BID [facility] Last Admin: 02/10/18 17:24 Dose: 6.25 mg Furosemide (Lasix) 40 mg IVP DAILY [facility] Last Admin: 02/10/18 09:58 Dose: 40 mg Hydrocortisone Sodium Succinate (Solu-Cortef) 25 mg IVP DAILY [facility] Last Admin: 02/10/18 09:58 Dose: 25 mg Propofol (Diprivan) 1,000 mg in 100 mls @ 3.538 mls/hr IV .Q24H PRN; Protocol; 5 MCG/KG/MIN PRN Reason: TITRATE PER MD ORDER Last Titration: 02/10/18 17:00 Dose: 0 mcg/kg/min, 0 mls/hr Doxycycline Hyclate 100 mg/ (Sodium Chloride) 100 mls @ 100 mls/hr IVPB Q12 [facility] PRN Reason: Protocol Last Admin: 02/10/18 21:41 Dose: 100 mls/hr Levetiracetam 1,500 mg/ Sodium (Chloride) 115 mls @ 460 mls/hr IV Q12 [facility] Last Admin: 02/10/18 21:40 Dose: 460 mls/hr Valproate Sodium 1,000 mg/ (Sodium Chloride) 110 mls @ 100 mls/hr IVPB Q12 [facility] Last Admin: 02/10/18 21:40 Dose: 100 mls/hr Vancomycin HCl (Vancomycin 1gm) 1 gm in 250 mls @ 167 mls/hr IVPB Q12H [facility] PRN Reason: Protocol Last Admin: 02/10/18 23:54 Dose: 167 mls/hr Dexmedetomidine HCl (Precedex 400mcg/100ml) 400 mcg in 100 mls @ 9.934 mls/hr IV .Q10H4M PRN; Protocol; 0.4 MCG/KG/HR PRN Reason: sedation Last Admin: 02/11/18 00:01 Dose: 0.6 mcg/kg/hr, 14.901 mls/hr Insulin Human Regular (Humulin R Med) 0 units SC Q6 [facility] PRN Reason: Protocol Last Admin: 02/11/18 00:00 Dose: Not Given Lorazepam (Ativan) 1 mg IVP Q6H PRN; Protocol PRN Reason: Seizure activity Last Admin: 02/06/18 14:28 Dose: 1 mg Ondansetron HCl (Zofran Inj) 4 mg IVP Q6H PRN PRN Reason: Nausea/Vomiting Last Admin: 02/10/18 21:28 Dose: 4 mg Pantoprazole Sodium (Protonix Inj) 40 mg IVP Q12 [facility] Last Admin: 02/10/18 21:35 Dose: 40 mg - Labs Labs: 02/11/18 05:17 02/11/18 05:17 PT 13.8 SECONDS (9.4-12.5) H 02/11/18 05:17 INR 1.20 (0.93-1.08) H 02/11/18 05:17 APTT 27.3 Seconds (25.1-36.5) 02/11/18 05:17 - Constitutional Appears: Other (intubated, sedated) - ENT Exam Additional comments: ET tube in place - Respiratory Exam Respiratory Exam: Decreased Breath Sounds - Cardiovascular Exam Cardiovascular Exam: +S1, +S2 - GI/Abdominal Exam GI & Abdominal Exam: Soft. absent: Tenderness Assessment and Plan - Assessment and Plan (Free Text) Plan: Assessment Systemic Inflammatory response syndrome, consider due to cardiac arrest etiology to be determined, R/O sepsis from aspiration pneumonitis; with new onset fever, R/O new onset infection CAD S/P CABG HTN thyroid disease significant smoking history Plan continue IV Vancomycin day 3 and continue Cefepime day 8 and Doxycycline as well ; repeat blood, sputum cx are negative so far, follow up repeat urine cx; repeat PCT is now below 0.5 - may d/c antibiotics in the next 24 hours overall prognosis is poor will continue to monitor clinically follow up further recommendations of Neurology
[2018-02-11] MEDS: Insulin Reg-MEDIUM-Coverage SC SCH ×3 (14:09→20:04)
[2018-02-11] MEDS: Vancomycin 1gm in NS 250ml 1 GM/250 ML BAG IVPB SCH (14:17)
--- NOTE | 2018-02-11 14:25 | CT ---
PROCEDURE: CT HEAD WITHOUT CONTRAST. HISTORY: post extubation, s/p cardiac arrest COMPARISON: 02/08/2018 TECHNIQUE: Axial computed tomography images were obtained through the head/brain without intravenous contrast. Radiation dose: Total exam DLP = 912 mGy-cm. This CT exam was performed using one or more of the following dose reduction techniques: Automated exposure control, adjustment of the mA and/or kV according to patient size, and/or use of iterative reconstruction technique. FINDINGS: HEMORRHAGE: No intracranial hemorrhage. BRAIN: No mass effect or edema. No atrophy or chronic microvascular ischemic changes. VENTRICLES: Unremarkable. No hydrocephalus. CALVARIUM: Unremarkable. PARANASAL SINUSES: Unremarkable as visualized. No significant inflammatory changes. MASTOID AIR CELLS: Unremarkable as visualized. No inflammatory changes. OTHER FINDINGS: None. IMPRESSION: No acute findings
--- NOTE | 2018-02-11 18:05 | CP.PCM.PN ---
Objective - Vital Signs/Intake and Output Vital Signs (last 24 hours): Temp Pulse Resp BP Pulse Ox 99.1 F 76 13 138/56 L 99 02/11/18 16:30 02/11/18 16:31 02/11/18 16:30 02/11/18 16:30 02/11/18 16:30 Intake and Output: 02/11/18 02/11/18 06:59 18:59 Intake Total 1968 Output Total 750 Balance 1218 - Medications Medications: Current Medications Acetaminophen (Tylenol 325mg Tab) 650 mg PO Q6H PRN PRN Reason: Fever >100.4 F Last Admin: 02/09/18 10:36 Dose: 650 mg Acetaminophen (Tylenol 325 Mg Supp) 325 mg RC Q6H PRN PRN Reason: Fever >100.4 F Albuterol/Ipratropium (Duoneb 3 Mg/0.5 Mg (3 Ml) Ud) 3 ml IH [id number] PRN PRN Reason: Shortness of Breath Last Admin: 02/11/18 10:29 Dose: 3 ml Artificial Tears (Artificial Tears) 0 ml OU Q8 PRN PRN Reason: Dry eyes Last Admin: 02/07/18 08:40 Dose: 2 drop Aspirin (Aspirin Chewable) 81 mg PO DAILY [facility] Last Admin: 02/11/18 10:10 Dose: 81 mg Atorvastatin Calcium (Lipitor) 40 mg PO DIN [facility] Last Admin: 02/11/18 17:24 Dose: Not Given Carvedilol (Coreg) 6.25 mg PO BID [facility] Last Admin: 02/11/18 17:24 Dose: Not Given Furosemide (Lasix) 40 mg IVP DAILY [facility] Last Admin: 02/11/18 09:27 Dose: 40 mg Levetiracetam 1,500 mg/ Sodium (Chloride) 115 mls @ 460 mls/hr IV Q12 [facility] Last Admin: 02/11/18 09:30 Dose: 460 mls/hr Valproate Sodium 1,000 mg/ (Sodium Chloride) 110 mls @ 100 mls/hr IVPB Q12 [facility] Last Admin: 02/11/18 09:29 Dose: 100 mls/hr Insulin Human Regular (Humulin R Med) 0 units SC Q6 [facility] PRN Reason: Protocol Last Admin: 02/11/18 14:09 Dose: Not Given Lisinopril (Zestril) 10 mg PO DAILY [facility] Last Admin: 02/11/18 14:27 Dose: Not Given Lorazepam (Ativan) 1 mg IVP Q6H PRN; Protocol PRN Reason: Seizure activity Last Admin: 02/06/18 14:28 Dose: 1 mg Ondansetron HCl (Zofran Inj) 4 mg IVP Q6H PRN PRN Reason: Nausea/Vomiting Last Admin: 02/11/18 09:24 Dose: 4 mg Pantoprazole Sodium (Protonix Inj) 40 mg IVP Q12 [facility] Last Admin: 02/11/18 09:28 Dose: 40 mg Phenol/Menthol (Phenaseptic 1.4% Throat [place]) 1 ml MT Q2H PRN PRN Reason: Sore Throat - Labs Labs: 02/11/18 05:17 02/11/18 05:17 PT 13.8 SECONDS (9.4-12.5) H 02/11/18 05:17 INR 1.20 (0.93-1.08) H 02/11/18 05:17 APTT 27.3 Seconds (25.1-36.5) 02/11/18 05:17 Assessment and Plan (1) Acute kidney injury Status: Acute (2) CHF (congestive heart failure) Status: Acute
[2018-02-11 20:46] LABS: ALB/GLOB RATIO 1.2 (1.1-1.8); ALBUMIN 3.4 g/dL (3.0-4.8); ALT/SGPT 55 U/L (7-56); AST/SGOT 44 U/L (17-59); BLOOD UREA NITROGEN 24 mg/dL (7-21); CALCIUM 8.5 mg/dL (8.4-10.5); GFR AFRICAN-AMERICAN > 60; GFR NON-AFRICAN AMERICAN > 60
[2018-02-12] MEDS: Insulin Reg-MEDIUM-Coverage SC SCH ×4 (02:16→22:30)
[2018-02-12 05:23] LABS: ARTERIAL BLOOD GAS HCO3 31.3 mmol/L (21-28); ARTERIAL BLOOD GAS HEMOGLOBIN 13.4 g/dL (11.7-17.4); ARTERIAL BLOOD GAS O2 CAPACITY 18.4 mL/dl (16-24); ARTERIAL BLOOD GAS O2 CONTENT 17.6 ML/dl (15-23); ARTERIAL BLOOD GAS O2 SAT 95.5 % (95-98); ARTERIAL BLOOD GAS PCO2 43 mm/Hg (35-45); ARTERIAL BLOOD GAS PH 7.47 (7.35-7.45); ARTERIAL BLOOD GAS TCO2 32.6 mmol.L (22-28)
--- NOTE | 2018-02-12 07:39 | CP.CCUPN ---
<Elisha Lorenzana - Last Filed: 02/12/18 12:08> CCU Subjective - Physician Review Subjective (Free Text): 02/05/18 12:12 Start rewarming now (less than 0.5 degree per hr till 98 F) No acute event overnight. Propofol 15 milrinone gtt 0.375 Amiodarino gtt should be stopped at noon now HR > [address] Soto: change dubneb PRN 02/07/18 12:26 Yesterday, vacation holiday but seen seizure Today 1 BM overnight, soft brown U/O 320 and gastric output 520 / over 24 hours 02/08/18 08:17 No seisure observed overnight. Cut down on sedation No BM, No gap reflex Dark stomach output 100 CC. U/O 700 cc/24 hrs 02/10/18 10:02 Gastric suction produces bilous, about 200 CC overnight 02/11/18 09:31 ON PS. RR 9. Wait for him to wake up a bit. possibly extubate 02/12/18 07:35 Pt is on 5L NC, conversing with . CCU Objective - Vital Signs / Intake & Output Vital Signs (Last 4 hours): Vital Signs Temp 02/12/18 04:00 97.8 F Intake and Output (Last 8hrs): Intake & Output 02/11/18 02/12/18 02/12/18 22:59 06:59 14:59 Intake Total 580 Output Total 2300 Balance -1720 Intake: IV 580 Right Antecubital 580 Output: Urine 2300 Urethral (Garcia) 2300 - Physical Exam Head: Positive for: Atraumatic, Normocephalic Pupils: Positive for: PERRL Conjunctiva: Positive for: Normal Mouth: Positive for: Moist Mucous Membranes Respiratory/Chest: Positive for: Good Air Exchange (Equal breath sounds bilaterally), Decreased Breath Sounds (bilateral lung bases), Rales (lung bases) Cardiovascular: Positive for: Regular Rate and Rhythm, Normal S1, S2. Negative for: Murmurs Abdomen: Negative for: Distention, Peritoneal Signs Upper Extremity: Negative for: Cyanosis, Edema Lower Extremity: Negative for: Edema Neurological: Positive for: GCS=15, CN II-XII Intact, Normal Sensory Function, Other (motor 4/5 all ext) Skin: Positive for: Warm, Dry, Normal Color. Negative for: Rashes Psychiatric: Positive for: Alert, Oriented x 3 - Medications Active Medications: Active Medications Generic Name Dose Route Start Last Admin Trade Name Freq PRN Reason Stop Dose Admin Acetaminophen 650 mg 02/09/18 09:59 02/09/18 10:36 Tylenol 325mg Tab PO 650 mg Q6H PRN Administration Fever >100.4 F Acetaminophen 325 mg 02/11/18 17:25 Tylenol 325 Mg Supp RC Q6H PRN Fever >100.4 F Albuterol/Ipratropium 3 ml 02/05/18 12:47 02/11/18 10:29 Duoneb 3 Mg/0.5 Mg (3 Ml) Ud IH 3 ml [id number] PRN Administration Shortness of Breath Artificial Tears 0 ml 02/04/18 15:56 02/07/18 08:40 Artificial Tears OU 2 drop Q8 PRN Administration Dry eyes Aspirin 81 mg 02/07/18 10:00 02/11/18 10:10 Aspirin Chewable PO 81 mg DAILY DAMON Administration Atorvastatin Calcium 40 mg 02/04/18 17:00 02/11/18 17:24 Lipitor PO Not Given DIN DAMON Carvedilol 6.25 mg 02/09/18 10:00 02/11/18 17:24 Coreg PO Not Given BID DAMON Furosemide 40 mg 02/08/18 08:00 02/11/18 09:27 Lasix IVP 40 mg DAILY DAMON Administration Heparin Sodium (Porcine) 5,000 units 02/11/18 22:00 02/12/18 05:44 Heparin SC 5,000 units Q8 DAMON Administration Protocol Levetiracetam 1,500 mg/ Sodium 115 mls @ 460 mls/hr 02/08/18 22:00 02/11/18 22:03 Chloride IV 460 mls/hr Q12 DAMON Administration Valproate Sodium 1,000 mg/ 110 mls @ 100 mls/hr 02/08/18 12:00 02/11/18 22:02 Sodium Chloride IVPB 100 mls/hr Q12 DAMON Administration Acetaminophen 1,000 mg in 100 mls @ 400 mls/hr 02/11/18 20:36 02/11/18 22:47 Ofirmev IVPB 02/13/18 20:37 400 mls/hr Q6H PRN Administration Temperature Insulin Human Regular 0 units 02/05/18 12:00 02/12/18 02:16 Humulin R Med SC Not Given Q6 [facility] Protocol Lisinopril 10 mg 02/11/18 10:45 02/11/18 14:27 Zestril PO Not Given DAILY [facility] Lorazepam 1 mg 02/05/18 18:40 02/06/18 14:28 Ativan IVP 1 mg Q6H PRN Administration Seizure activity Protocol Ondansetron HCl 4 mg 02/10/18 15:28 02/11/18 09:24 Zofran Inj IVP 4 mg Q6H PRN Administration Nausea/Vomiting Pantoprazole Sodium 40 mg 02/08/18 22:00 02/11/18 22:04 Protonix Inj IVP 40 mg Q12 [facility] Administration Phenol/Menthol 1 ml 02/11/18 11:24 Phenaseptic 1.4% Throat [place] Q2H PRN Sore Throat - Patient Studies Lab Studies: Microbiology Studies 02/09/18 07:50 Gram Stain - Final Sputum Sputum Culture - Final NORMAL ORAL JOSHUA 02/09/18 07:00 Blood Culture - Preliminary Blood-Venous NO GROWTH AFTER 48 HOURS 02/09/18 07:30 Blood Culture - Preliminary Blood-Venous NO GROWTH AFTER 48 HOURS Lab Studies 02/12/18 02/11/18 02/11/18 Range/Units 05:00 22:42 20:25 pCO2 43 (35-45) mm/Hg pO2 70.0 L (80-100) mm/Hg HCO3 31.3 H (21-28) mmol/L ABG pH 7.47 H (7.35-7.45) ABG Total CO2 32.6 H (22-28) mmol.L ABG O2 Saturation 95.5 (95-98) % ABG O2 Content 17.6 (15-23) ML/dl ABG Base Excess 6.8 H (-2.0-3.0) mmol/L ABG Hemoglobin 13.4 (11.7-17.4) g/dL ABG Carboxyhemoglobin 1.7 H (0.5-1.5) % POC ABG HHb (Measured) 4.4 (0-5) % ABG Methemoglobin 0.7 (0.0-3.0) % ABG O2 Capacity 18.4 (16-24) mL/dl Hgb O2 Saturation 93.1 L (95.0-98.0) % FiO2 40.0 % Sodium 151 H (132-148) mmol/L Potassium 3.3 L (3.6-5.0) mmol/L Chloride 107 (98-107) mmol/L Carbon Dioxide 32 (21-33) mmol/L Anion Gap 16 (10-20) BUN 24 H (7-21) mg/dL Creatinine 0.8 (0.8-1.5) mg/dl Est GFR ( Amer) > 60 Est GFR (Non-Af Amer) > 60 POC Glucose (mg/dL) 100 (65-110) mg/dL Random Glucose 101 (70-110) mg/dL Calcium 8.5 (8.4-10.5) mg/dL Total Bilirubin 1.1 (0.2-1.3) mg/dL AST 44 (17-59) U/L ALT 55 (7-56) U/L Alkaline Phosphatase 58 (38-126) U/L Total Protein 6.3 (5.8-8.3) g/dL Albumin 3.4 (3.0-4.8) g/dL Globulin 2.9 gm/dL Albumin/Globulin Ratio 1.2 (1.1-1.8) Crossmatch 02/11/18 02/11/18 02/08/18 Range/Units 17:55 11:29 11:45 pCO2 (35-45) mm/Hg pO2 (80-100) mm/Hg HCO3 (21-28) mmol/L ABG pH (7.35-7.45) ABG Total CO2 (22-28) mmol.L ABG O2 Saturation (95-98) % ABG O2 Content (15-23) ML/dl ABG Base Excess (-2.0-3.0) mmol/L ABG Hemoglobin (11.7-17.4) g/dL ABG Carboxyhemoglobin (0.5-1.5) % POC ABG HHb (Measured) (0-5) % ABG Methemoglobin (0.0-3.0) % ABG O2 Capacity (16-24) mL/dl Hgb O2 Saturation (95.0-98.0) % FiO2 % Sodium (132-148) mmol/L Potassium (3.6-5.0) mmol/L Chloride (98-107) mmol/L Carbon Dioxide (21-33) mmol/L Anion Gap (10-20) BUN (7-21) mg/dL Creatinine (0.8-1.5) mg/dl Est GFR ( Amer) Est GFR (Non-Af Amer) POC Glucose (mg/dL) 97 123 H (65-110) mg/dL Random Glucose (70-110) mg/dL Calcium (8.4-10.5) mg/dL Total Bilirubin (0.2-1.3) mg/dL AST (17-59) U/L ALT (7-56) U/L Alkaline Phosphatase (38-126) U/L Total Protein (5.8-8.3) g/dL Albumin (3.0-4.8) g/dL Globulin gm/dL Albumin/Globulin Ratio (1.1-1.8) Crossmatch See Detail Laboratory Results - last 24 hr 02/08/18 02/11/18 02/11/18 11:45 11:29 17:55 pCO2 pO2 HCO3 ABG pH ABG Total CO2 ABG O2 Saturation ABG O2 Content ABG Base Excess ABG Hemoglobin ABG Carboxyhemoglobin POC ABG HHb (Measured) ABG Methemoglobin ABG O2 Capacity Hgb O2 Saturation FiO2 Sodium Potassium Chloride Carbon Dioxide Anion Gap BUN Creatinine Est GFR ( Amer) Est GFR (Non-Af Amer) POC Glucose (mg/dL) 123 H 97 Random Glucose Calcium Total Bilirubin AST ALT Alkaline Phosphatase Total Protein Albumin Globulin Albumin/Globulin Ratio Crossmatch See Detail 02/11/18 02/11/18 02/12/18 20:25 22:42 05:00 pCO2 43 pO2 70.0 L HCO3 31.3 H ABG pH 7.47 H ABG Total CO2 32.6 H ABG O2 Saturation 95.5 ABG O2 Content 17.6 ABG Base Excess 6.8 H ABG Hemoglobin 13.4 ABG Carboxyhemoglobin 1.7 H POC ABG HHb (Measured) 4.4 ABG Methemoglobin 0.7 ABG O2 Capacity 18.4 Hgb O2 Saturation 93.1 L FiO2 40.0 Sodium 151 H Potassium 3.3 L Chloride 107 Carbon Dioxide 32 Anion Gap 16 BUN 24 H Creatinine 0.8 Est GFR ( Amer) > 60 Est GFR (Non-Af Amer) > 60 POC Glucose (mg/dL) 100 Random Glucose 101 Calcium 8.5 Total Bilirubin 1.1 AST 44 ALT 55 Alkaline Phosphatase 58 Total Protein 6.3 Albumin 3.4 Globulin 2.9 Albumin/Globulin Ratio 1.2 Crossmatch Fingerstick Blood Sugar Results: 147 Assessment/Plan - Assessment and Plan (Free Text) Plan: Mr Ordonez, 57 M with PMHx of CAD s/p CABG with 4 stents, HTN, hypothyroidism , s/p V. fib arrest in the field, s/p hypothermic protocol, s/p rewarming, extubated to [place]. CXR showed pulmonary edema, improved, but cannot rule out pneumonia. Failed breathing trial on Thursday because of seizure. Keppra and Valproate is increased. No more seizure. CTH done on admission, c/w anoxic brain injury; repeat CTH no acute changes. A: 1. S/p V fib cardiac arrest. hx CAD s/p CABG s/p stent 2. Anoxic brain injury and seizure, ventilator dependent respiratory failure, s/ p extubation 3. Cardiogenic shock vs Septic shock. off pressors. off milrinon gtt. OFF stress steroid. 4. Acute decompensated systolic CHF - improved 4. Pulm edema cannot rule out PNA - OFF ABX 5. Hx hypothyrodism 6. Has ruled out GI bleed. Likely caused by continuous low suction and stress ulcers 7. Newly diagnosed diabetes, A1C 6.7 P: Neuro EEG while on sedation (02/04): No seizure Keppra 1500 mg Q12. valproate 1000 Q12. Per neuro, maintain IV formulation for today. CTH done on admission, c/w anoxic brain injury; repeat CTH (02/08, 01/11)no acute changes. HOB 30 continuously Pulm Duonebs PRN CXR: No active issue Card Echo 20-25%. Septal and apex severely hypokinetic ASA, lisinopril 5, Coreg, spironolactone, lasix 40 PO Lipitor GI Protonix 40 PO OK for PO meds, but need crushed, served with apple sauce Finely chopped diet, thin liquid No active issue Endo Goal: Sugar 140-180 A1C__6.7___ Heme No active issue ID Observe off abx OFF Solu-cortef s/p IV Vancomycin day 2 and continue Cefepime day 7 and Doxycycline as well; repeat blood, sputum cx are negative so far, follow up repeat urine cx; repeat PCT is now below 0.5 PVX heparin, protonix Dispo plan transfer to telemetry Neuro recommend acute rehab s/r/d/w Dr. Galo <Ji Galo - Last Filed: 02/12/18 12:13> CCU Objective - Vital Signs / Intake & Output Intake and Output (Last 8hrs): Intake & Output 02/11/18 02/12/18 02/12/18 22:59 06:59 14:59 Intake Total 580 Output Total 2300 Balance -1720 Intake: IV 580 Right Antecubital 580 Output: Urine 2300 Urethral (Garcia) 2300 - Medications Active Medications: Active Medications Generic Name Dose Route Start Last Admin Trade Name Freq PRN Reason Stop Dose Admin Acetaminophen 650 mg 02/09/18 09:59 02/09/18 10:36 Tylenol 325mg Tab PO 650 mg Q6H PRN Administration Fever >100.4 F Acetaminophen 325 mg 02/11/18 17:25 Tylenol 325 Mg Supp RC Q6H PRN Fever >100.4 F Albuterol/Ipratropium 3 ml 02/05/18 12:47 02/11/18 10:29 Duoneb 3 Mg/0.5 Mg (3 Ml) Ud IH 3 ml [id number] PRN Administration Shortness of Breath Artificial Tears 0 ml 02/04/18 15:56 02/07/18 08:40 Artificial Tears OU 2 drop Q8 PRN Administration Dry eyes Aspirin 81 mg 02/07/18 10:00 02/12/18 09:06 Aspirin Chewable PO Not Given DAILY [facility] Atorvastatin Calcium 40 mg 02/04/18 17:00 02/11/18 17:24 Lipitor PO Not Given DIN [facility] Carvedilol 12.5 mg 02/12/18 11:26 Coreg PO BID DAMON Furosemide 40 mg 02/13/18 10:00 Lasix PO DAILY [facility] Heparin Sodium (Porcine) 5,000 units 02/11/18 22:00 02/12/18 05:44 Heparin SC 5,000 units Q8 DAMON Administration Protocol Levetiracetam 1,500 mg/ Sodium 115 mls @ 460 mls/hr 02/08/18 22:00 02/12/18 09:18 Chloride IV 460 mls/hr Q12 DAMON Administration Valproate Sodium 1,000 mg/ 110 mls @ 100 mls/hr 02/08/18 12:00 02/12/18 09:18 Sodium Chloride IVPB 100 mls/hr Q12 DAMON Administration Dextrose 1,000 mls @ 100 mls/hr 02/12/18 10:00 02/12/18 10:16 Dextrose 5% In Water 1000 Ml IV 100 mls/hr .Q10H DAMON Administration Insulin Human Regular 0 units 02/12/18 11:30 Humulin R Med SC ACHS [facility] Protocol Lisinopril 10 mg 02/11/18 10:45 02/12/18 09:06 Zestril PO Not Given DAILY [facility] Lorazepam 1 mg 02/05/18 18:40 02/06/18 14:28 Ativan IVP 1 mg Q6H PRN Administration Seizure activity Protocol Ondansetron HCl 4 mg 02/10/18 15:28 02/11/18 09:24 Zofran Inj IVP 4 mg Q6H PRN Administration Nausea/Vomiting Pantoprazole Sodium 40 mg 02/12/18 22:00 Protonix Ec Tab PO Q12 [facility] Phenol/Menthol 1 ml 02/11/18 11:24 Phenaseptic 1.4% Throat [place] Q2H PRN Sore Throat Spironolactone 25 mg 02/12/18 22:00 Aldactone PO [facility] - Patient Studies Lab Studies: Microbiology Studies 02/09/18 07:00 Blood Culture - Preliminary Blood-Venous NO GROWTH AFTER 3 DAYS 02/09/18 07:30 Blood Culture - Preliminary Blood-Venous NO GROWTH AFTER 3 DAYS 02/09/18 07:50 Gram Stain - Final Sputum Sputum Culture - Final NORMAL ORAL JOSHUA Lab Studies 02/12/18 02/12/18 02/12/18 Range/Units 11:58 09:00 09:00 WBC (4.5-11.0) 10^3/ul RBC (3.5-6.1) 10^6/uL Hgb (14.0-18.0) g/dL Hct (42.0-52.0) % MCV (80.0-105.0) fl MCH (25.0-35.0) pg MCHC (31.0-37.0) g/dl RDW (11.5-14.5) % Plt Count (120.0-450.0) 10^3/uL MPV (7.0-11.0) fl Gran % (50.0-68.0) % Lymph % (Auto) (22.0-35.0) % [place] % (Auto) (1.0-6.0) % Eos % (Auto) (1.5-5.0) % Baso % (Auto) (0.0-3.0) % Gran # (1.4-6.5) Lymph # (Auto) (1.2-3.4) [place] # (Auto) (0.1-0.6) Eos # (Auto) (0.0-0.7) Baso # (Auto) (0.0-2.0) K/mm3 PT 14.5 H (9.4-12.5) SECONDS INR 1.29 H (0.93-1.08) APTT 35.3 (25.1-36.5) Seconds pCO2 (35-45) mm/Hg pO2 (80-100) mm/Hg HCO3 (21-28) mmol/L ABG pH (7.35-7.45) ABG Total CO2 (22-28) mmol.L ABG O2 Saturation (95-98) % ABG O2 Content (15-23) ML/dl ABG Base Excess (-2.0-3.0) mmol/L ABG Hemoglobin (11.7-17.4) g/dL ABG Carboxyhemoglobin (0.5-1.5) % POC ABG HHb (Measured) (0-5) % ABG Methemoglobin (0.0-3.0) % ABG O2 Capacity (16-24) mL/dl Hgb O2 Saturation (95.0-98.0) % FiO2 % Sodium 153 H (132-148) mmol/L Potassium 4.0 (3.6-5.0) mmol/L Chloride 108 H (98-107) mmol/L Carbon Dioxide 34 H (21-33) mmol/L Anion Gap 16 (10-20) BUN 23 H (7-21) mg/dL Creatinine 0.8 (0.8-1.5) mg/dl Est GFR ( Amer) > 60 Est GFR (Non-Af Amer) > 60 POC Glucose (mg/dL) 164 H (65-110) mg/dL Random Glucose 113 H (70-110) mg/dL Calcium 8.9 (8.4-10.5) mg/dL Phosphorus 3.0 (2.5-4.5) mg/dL Magnesium 2.4 H (1.7-2.2) mg/dL Total Bilirubin 1.1 (0.2-1.3) mg/dL AST 52 (17-59) U/L ALT 54 (7-56) U/L Alkaline Phosphatase 64 (38-126) U/L Total Protein 6.7 (5.8-8.3) g/dL Albumin 3.6 (3.0-4.8) g/dL Globulin 3.1 gm/dL Albumin/Globulin Ratio 1.2 (1.1-1.8) 02/12/18 02/12/18 02/11/18 Range/Units 09:00 05:00 22:42 WBC 7.8 (4.5-11.0) 10^3/ul RBC 3.61 (3.5-6.1) 10^6/uL Hgb 10.6 L (14.0-18.0) g/dL Hct 32.2 L (42.0-52.0) % MCV 89.2 (80.0-105.0) fl MCH 29.4 (25.0-35.0) pg MCHC 32.9 (31.0-37.0) g/dl RDW 14.1 (11.5-14.5) % Plt Count 153 (120.0-450.0) 10^3/uL MPV 10.5 (7.0-11.0) fl Gran % 62.5 (50.0-68.0) % Lymph % (Auto) 23.5 (22.0-35.0) % [place] % (Auto) 12.0 H (1.0-6.0) % Eos % (Auto) 1.9 (1.5-5.0) % Baso % (Auto) 0.1 (0.0-3.0) % Gran # 4.84 (1.4-6.5) Lymph # (Auto) 1.8 (1.2-3.4) [place] # (Auto) 0.9 H (0.1-0.6) Eos # (Auto) 0.2 (0.0-0.7) Baso # (Auto) 0.01 (0.0-2.0) K/mm3 PT (9.4-12.5) SECONDS INR (0.93-1.08) APTT (25.1-36.5) Seconds pCO2 43 (35-45) mm/Hg pO2 70.0 L (80-100) mm/Hg HCO3 31.3 H (21-28) mmol/L ABG pH 7.47 H (7.35-7.45) ABG Total CO2 32.6 H (22-28) mmol.L ABG O2 Saturation 95.5 (95-98) % ABG O2 Content 17.6 (15-23) ML/dl ABG Base Excess 6.8 H (-2.0-3.0) mmol/L ABG Hemoglobin 13.4 (11.7-17.4) g/dL ABG Carboxyhemoglobin 1.7 H (0.5-1.5) % POC ABG HHb (Measured) 4.4 (0-5) % ABG Methemoglobin 0.7 (0.0-3.0) % ABG O2 Capacity 18.4 (16-24) mL/dl Hgb O2 Saturation 93.1 L (95.0-98.0) % FiO2 40.0 % Sodium (132-148) mmol/L Potassium (3.6-5.0) mmol/L Chloride (98-107) mmol/L Carbon Dioxide (21-33) mmol/L Anion Gap (10-20) BUN (7-21) mg/dL Creatinine (0.8-1.5) mg/dl Est GFR ( Amer) Est GFR (Non-Af Amer) POC Glucose (mg/dL) 100 (65-110) mg/dL Random Glucose (70-110) mg/dL Calcium (8.4-10.5) mg/dL Phosphorus (2.5-4.5) mg/dL Magnesium (1.7-2.2) mg/dL Total Bilirubin (0.2-1.3) mg/dL AST (17-59) U/L ALT (7-56) U/L Alkaline Phosphatase (38-126) U/L Total Protein (5.8-8.3) g/dL Albumin (3.0-4.8) g/dL Globulin gm/dL Albumin/Globulin Ratio (1.1-1.8) 02/11/18 02/11/18 02/11/18 Range/Units 20:25 17:55 11:29 WBC (4.5-11.0) 10^3/ul RBC (3.5-6.1) 10^6/uL Hgb (14.0-18.0) g/dL Hct (42.0-52.0) % MCV (80.0-105.0) fl MCH (25.0-35.0) pg MCHC (31.0-37.0) g/dl RDW (11.5-14.5) % Plt Count (120.0-450.0) 10^3/uL MPV (7.0-11.0) fl Gran % (50.0-68.0) % Lymph % (Auto) (22.0-35.0) % [place] % (Auto) (1.0-6.0) % Eos % (Auto) (1.5-5.0) % Baso % (Auto) (0.0-3.0) % Gran # (1.4-6.5) Lymph # (Auto) (1.2-3.4) [place] # (Auto) (0.1-0.6) Eos # (Auto) (0.0-0.7) Baso # (Auto) (0.0-2.0) K/mm3 PT (9.4-12.5) SECONDS INR (0.93-1.08) APTT (25.1-36.5) Seconds pCO2 (35-45) mm/Hg pO2 (80-100) mm/Hg HCO3 (21-28) mmol/L ABG pH (7.35-7.45) ABG Total CO2 (22-28) mmol.L ABG O2 Saturation (95-98) % ABG O2 Content (15-23) ML/dl ABG Base Excess (-2.0-3.0) mmol/L ABG Hemoglobin (11.7-17.4) g/dL ABG Carboxyhemoglobin (0.5-1.5) % POC ABG HHb (Measured) (0-5) % ABG Methemoglobin (0.0-3.0) % ABG O2 Capacity (16-24) mL/dl Hgb O2 Saturation (95.0-98.0) % FiO2 % Sodium 151 H (132-148) mmol/L Potassium 3.3 L (3.6-5.0) mmol/L Chloride 107 (98-107) mmol/L Carbon Dioxide 32 (21-33) mmol/L Anion Gap 16 (10-20) BUN 24 H (7-21) mg/dL Creatinine 0.8 (0.8-1.5) mg/dl Est GFR ( Amer) > 60 Est GFR (Non-Af Amer) > 60 POC Glucose (mg/dL) 97 123 H (65-110) mg/dL Random Glucose 101 (70-110) mg/dL Calcium 8.5 (8.4-10.5) mg/dL Phosphorus (2.5-4.5) mg/dL Magnesium (1.7-2.2) mg/dL Total Bilirubin 1.1 (0.2-1.3) mg/dL AST 44 (17-59) U/L ALT 55 (7-56) U/L Alkaline Phosphatase 58 (38-126) U/L Total Protein 6.3 (5.8-8.3) g/dL Albumin 3.4 (3.0-4.8) g/dL Globulin 2.9 gm/dL Albumin/Globulin Ratio 1.2 (1.1-1.8) Laboratory Results - last 24 hr 02/11/18 02/11/18 02/11/18 11:29 17:55 20:25 WBC RBC Hgb Hct MCV MCH MCHC RDW Plt Count MPV Gran % Lymph % (Auto) [place] % (Auto) Eos % (Auto) Baso % (Auto) Gran # Lymph # (Auto) [place] # (Auto) Eos # (Auto) Baso # (Auto) PT INR APTT pCO2 pO2 HCO3 ABG pH ABG Total CO2 ABG O2 Saturation ABG O2 Content ABG Base Excess ABG Hemoglobin ABG Carboxyhemoglobin POC ABG HHb (Measured) ABG Methemoglobin ABG O2 Capacity Hgb O2 Saturation FiO2 Sodium 151 H Potassium 3.3 L Chloride 107 Carbon Dioxide 32 Anion Gap 16 BUN 24 H Creatinine 0.8 Est GFR ( Amer) > 60 Est GFR (Non-Af Amer) > 60 POC Glucose (mg/dL) 123 H 97 Random Glucose 101 Calcium 8.5 Phosphorus Magnesium Total Bilirubin 1.1 AST 44 ALT 55 Alkaline Phosphatase 58 Total Protein 6.3 Albumin 3.4 Globulin 2.9 Albumin/Globulin Ratio 1.2 02/11/18 02/12/18 02/12/18 22:42 05:00 09:00 WBC 7.8 RBC 3.61 Hgb 10.6 L Hct 32.2 L MCV 89.2 MCH 29.4 MCHC 32.9 RDW 14.1 Plt Count 153 MPV 10.5 Gran % 62.5 Lymph % (Auto) 23.5 [place] % (Auto) 12.0 H Eos % (Auto) 1.9 Baso % (Auto) 0.1 Gran # 4.84 Lymph # (Auto) 1.8 [place] # (Auto) 0.9 H Eos # (Auto) 0.2 Baso # (Auto) 0.01 PT INR APTT pCO2 43 pO2 70.0 L HCO3 31.3 H ABG pH 7.47 H ABG Total CO2 32.6 H ABG O2 Saturation 95.5 ABG O2 Content 17.6 ABG Base Excess 6.8 H ABG Hemoglobin 13.4 ABG Carboxyhemoglobin 1.7 H POC ABG HHb (Measured) 4.4 ABG Methemoglobin 0.7 ABG O2 Capacity 18.4 Hgb O2 Saturation 93.1 L FiO2 40.0 Sodium Potassium Chloride Carbon Dioxide Anion Gap BUN Creatinine Est GFR ( Amer) Est GFR (Non-Af Amer) POC Glucose (mg/dL) 100 Random Glucose Calcium Phosphorus Magnesium Total Bilirubin AST ALT Alkaline Phosphatase Total Protein Albumin Globulin Albumin/Globulin Ratio 02/12/18 02/12/18 02/12/18 09:00 09:00 11:58 WBC RBC Hgb Hct MCV MCH MCHC RDW Plt Count MPV Gran % Lymph % (Auto) [place] % (Auto) Eos % (Auto) Baso % (Auto) Gran # Lymph # (Auto) [place] # (Auto) Eos # (Auto) Baso # (Auto) PT 14.5 H INR 1.29 H APTT 35.3 pCO2 pO2 HCO3 ABG pH ABG Total CO2 ABG O2 Saturation ABG O2 Content ABG Base Excess ABG Hemoglobin ABG Carboxyhemoglobin POC ABG HHb (Measured) ABG Methemoglobin ABG O2 Capacity Hgb O2 Saturation FiO2 Sodium 153 H Potassium 4.0 Chloride 108 H Carbon Dioxide 34 H Anion Gap 16 BUN 23 H Creatinine 0.8 Est GFR ( Amer) > 60 Est GFR (Non-Af Amer) > 60 POC Glucose (mg/dL) 164 H Random Glucose 113 H Calcium 8.9 Phosphorus 3.0 Magnesium 2.4 H Total Bilirubin 1.1 AST 52 ALT 54 Alkaline Phosphatase 64 Total Protein 6.7 Albumin 3.6 Globulin 3.1 Albumin/Globulin Ratio 1.2 Critical Care Progress Note - Nutrition Nutrition: Nutrition Category Date Time Status Dysphagia/Modified Consistency Diet [DIET] Diets 02/12/18 Lunch Ordered Assessment/Plan - Assessment and Plan (Free Text) Plan: Patient seen and examined on rounds with resident, agree note with following additions/exceptions: Patient is 57yomale with PMHx of CAD s/p CABG, HTN, hypothyroidism, s/p Vfib arrest in the field, s/p hypothermic protocol, s/p rewarming. Pt currently Afebrile, BP stable, comfortable in NAD, OFF Milrinone drip. This morning patient was awake, alert, following commands, doing well on 2LNC, sat 95% Overall significant improvement Passed speech swallow eval Awaiting possible cath/AICD next week CAD s/p CABG s/p stent HTN Hypothyroid s/p Vfib cardiac arrest CHF acute decompensated systolic rule out PNA Seizure disorder Recommend: - cont with supp o2 as needed - duonebs PRN - Pulmicort BID - ASA - follow up cardiology - DC Lasix for now - start ACEI, Spironolactone - follow up neurology - GI ppx - DVT ppx - PT/OT - transfer to telemetry
--- NOTE | 2018-02-12 07:44 | CP.PCM.PN ---
Subjective - Date & Time of Evaluation Date of Evaluation: 02/12/18 Time of Evaluation: 07:00 - Subjective Subjective: Stable in CCU. Awake and alert. Talking with his this AM. Extubated. V/S noted. RSR PE: lungs: few rhonchi Cor.: S1S2 Abd.: soft Ext. mild edema Neuro.: Awake, alert, Speaking well. I/O= 580/2300 recorded Labs and ABGs pending today. BCs all NG so far ECG: S. tachy., STTW changes CXR 02/12 : not read yet. clear lungs by my reading CT head 02/11 noted. No acute findings Objective - Vital Signs/Intake and Output Vital Signs (last 24 hours): Temp Pulse Resp BP Pulse Ox 97.8 F 78 14 135/55 L 92 L 02/12/18 04:00 02/12/18 02:00 02/11/18 19:00 02/11/18 20:01 02/11/18 20:01 Intake and Output: 02/12/18 02/12/18 06:59 18:59 Intake Total 580 Output Total 2300 Balance -1720 - Medications Medications: Current Medications Acetaminophen (Tylenol 325mg Tab) 650 mg PO Q6H PRN PRN Reason: Fever >100.4 F Last Admin: 02/09/18 10:36 Dose: 650 mg Acetaminophen (Tylenol 325 Mg Supp) 325 mg RC Q6H PRN PRN Reason: Fever >100.4 F Albuterol/Ipratropium (Duoneb 3 Mg/0.5 Mg (3 Ml) Ud) 3 ml IH [id number] PRN PRN Reason: Shortness of Breath Last Admin: 02/11/18 10:29 Dose: 3 ml Artificial Tears (Artificial Tears) 0 ml OU Q8 PRN PRN Reason: Dry eyes Last Admin: 02/07/18 08:40 Dose: 2 drop Aspirin (Aspirin Chewable) 81 mg PO DAILY [facility] Last Admin: 02/11/18 10:10 Dose: 81 mg Atorvastatin Calcium (Lipitor) 40 mg PO DIN [facility] Last Admin: 02/11/18 17:24 Dose: Not Given Carvedilol (Coreg) 6.25 mg PO BID [facility] Last Admin: 02/11/18 17:24 Dose: Not Given Furosemide (Lasix) 40 mg IVP DAILY [facility] Last Admin: 02/11/18 09:27 Dose: 40 mg Heparin Sodium (Porcine) (Heparin) 5,000 units SC Q8 [facility] PRN Reason: Protocol Last Admin: 02/12/18 05:44 Dose: 5,000 units Levetiracetam 1,500 mg/ Sodium (Chloride) 115 mls @ 460 mls/hr IV Q12 [facility] Last Admin: 02/11/18 22:03 Dose: 460 mls/hr Valproate Sodium 1,000 mg/ (Sodium Chloride) 110 mls @ 100 mls/hr IVPB Q12 [facility] Last Admin: 02/11/18 22:02 Dose: 100 mls/hr Acetaminophen (Ofirmev) 1,000 mg in 100 mls @ 400 mls/hr IVPB Q6H PRN PRN Reason: Temperature Stop: 02/13/18 20:37 Last Admin: 02/11/18 22:47 Dose: 400 mls/hr Insulin Human Regular (Humulin R Med) 0 units SC Q6 [facility] PRN Reason: Protocol Last Admin: 02/12/18 02:16 Dose: Not Given Lisinopril (Zestril) 10 mg PO DAILY [facility] Last Admin: 02/11/18 14:27 Dose: Not Given Lorazepam (Ativan) 1 mg IVP Q6H PRN; Protocol PRN Reason: Seizure activity Last Admin: 02/06/18 14:28 Dose: 1 mg Ondansetron HCl (Zofran Inj) 4 mg IVP Q6H PRN PRN Reason: Nausea/Vomiting Last Admin: 02/11/18 09:24 Dose: 4 mg Pantoprazole Sodium (Protonix Inj) 40 mg IVP Q12 [facility] Last Admin: 02/11/18 22:04 Dose: 40 mg Phenol/Menthol (Phenaseptic 1.4% Throat [place]) 1 ml MT Q2H PRN PRN Reason: Sore Throat - Labs Labs: 02/11/18 05:17 02/11/18 20:25 PT 13.8 SECONDS (9.4-12.5) H 02/11/18 05:17 INR 1.20 (0.93-1.08) H 02/11/18 05:17 APTT 27.3 Seconds (25.1-36.5) 02/11/18 05:17 Assessment and Plan - Assessment and Plan (Free Text) Assessment: Cardiac arrest at home Acute ID/CHF/S/P resuscitation in the field Anoxic encephalopathy, improving CAD/ID/Remote CABG/No regular cardiac f/u HBP Hypothyroidism Smoker Plan: Await AM labs. Hold IV Lasix for now. Na = 151 yesterday. As per Neuro., GI, Renal, Intensivists Monitor: labs, I/O, sats., neuro status, etc OOB to chair as marixa./PT Will follow. Will plan cardiac cath and EP evaluation/ICD, probably next week.
--- NOTE | 2018-02-12 07:55 | CP.PCM.PN ---
Subjective - Date & Time of Evaluation Date of Evaluation: 02/12/18 Time of Evaluation: 07:00 - Subjective Subjective: Patient seen and examined at bedside. Stating he is hungry. Patient is able to move all for extremities. No complaints overnight. Vitals stable. Complaints of pain in throat due to intubation . Objective - Vital Signs/Intake and Output Vital Signs (last 24 hours): Temp Pulse Resp BP Pulse Ox 97.8 F 78 14 135/55 L 92 L 02/12/18 04:00 02/12/18 02:00 02/11/18 19:00 02/11/18 20:01 02/11/18 20:01 Intake and Output: 02/12/18 02/12/18 06:59 18:59 Intake Total 580 Output Total 2300 Balance -1720 - Medications Medications: Current Medications Acetaminophen (Tylenol 325mg Tab) 650 mg PO Q6H PRN PRN Reason: Fever >100.4 F Last Admin: 02/09/18 10:36 Dose: 650 mg Acetaminophen (Tylenol 325 Mg Supp) 325 mg RC Q6H PRN PRN Reason: Fever >100.4 F Albuterol/Ipratropium (Duoneb 3 Mg/0.5 Mg (3 Ml) Ud) 3 ml IH [id number] PRN PRN Reason: Shortness of Breath Last Admin: 02/11/18 10:29 Dose: 3 ml Artificial Tears (Artificial Tears) 0 ml OU Q8 PRN PRN Reason: Dry eyes Last Admin: 02/07/18 08:40 Dose: 2 drop Aspirin (Aspirin Chewable) 81 mg PO DAILY [facility] Last Admin: 02/11/18 10:10 Dose: 81 mg Atorvastatin Calcium (Lipitor) 40 mg PO DIN [facility] Last Admin: 02/11/18 17:24 Dose: Not Given Carvedilol (Coreg) 6.25 mg PO BID [facility] Last Admin: 02/11/18 17:24 Dose: Not Given Furosemide (Lasix) 40 mg IVP DAILY [facility] Last Admin: 02/11/18 09:27 Dose: 40 mg Heparin Sodium (Porcine) (Heparin) 5,000 units SC Q8 [facility] PRN Reason: Protocol Last Admin: 02/12/18 05:44 Dose: 5,000 units Levetiracetam 1,500 mg/ Sodium (Chloride) 115 mls @ 460 mls/hr IV Q12 [facility] Last Admin: 02/11/18 22:03 Dose: 460 mls/hr Valproate Sodium 1,000 mg/ (Sodium Chloride) 110 mls @ 100 mls/hr IVPB Q12 [facility] Last Admin: 02/11/18 22:02 Dose: 100 mls/hr Acetaminophen (Ofirmev) 1,000 mg in 100 mls @ 400 mls/hr IVPB Q6H PRN PRN Reason: Temperature Stop: 02/13/18 20:37 Last Admin: 02/11/18 22:47 Dose: 400 mls/hr Insulin Human Regular (Humulin R Med) 0 units SC Q6 [facility] PRN Reason: Protocol Last Admin: 02/12/18 02:16 Dose: Not Given Lisinopril (Zestril) 10 mg PO DAILY [facility] Last Admin: 02/11/18 14:27 Dose: Not Given Lorazepam (Ativan) 1 mg IVP Q6H PRN; Protocol PRN Reason: Seizure activity Last Admin: 02/06/18 14:28 Dose: 1 mg Ondansetron HCl (Zofran Inj) 4 mg IVP Q6H PRN PRN Reason: Nausea/Vomiting Last Admin: 02/11/18 09:24 Dose: 4 mg Pantoprazole Sodium (Protonix Inj) 40 mg IVP Q12 [facility] Last Admin: 02/11/18 22:04 Dose: 40 mg Phenol/Menthol (Phenaseptic 1.4% Throat [place]) 1 ml MT Q2H PRN PRN Reason: Sore Throat - Labs Labs: 02/11/18 05:17 02/11/18 20:25 PT 13.8 SECONDS (9.4-12.5) H 02/11/18 05:17 INR 1.20 (0.93-1.08) H 02/11/18 05:17 APTT 27.3 Seconds (25.1-36.5) 02/11/18 05:17 - Head Exam Head Exam: ATRAUMATIC, NORMAL INSPECTION, NORMOCEPHALIC - Eye Exam Eye Exam: EOMI - ENT Exam ENT Exam: Mucous Membranes Dry - Respiratory Exam Respiratory Exam: Clear to Ausculation Bilateral. absent: Rhonchi, Wheezes - Cardiovascular Exam Cardiovascular Exam: REGULAR RHYTHM, +S1, +S2 - GI/Abdominal Exam GI & Abdominal Exam: Soft, Diminished Bowel Sounds - Extremities Exam Extremities Exam: Full ROM, Normal Inspection - Neurological Exam Neurological Exam: Alert, Awake, Oriented x3 Neuro motor strength exam: Left Upper Extremity: 4, Right Upper Extremity: 4, Left Lower Extremity: 3, Right Lower Extremity: 3 - Psychiatric Exam Psychiatric exam: Normal Affect, Normal Mood - Skin Skin Exam: Warm. absent: Normal Color (discoloration of b/l lower extremities) Additional comments: wounds on heels of feet bilaterally Assessment and Plan - Assessment and Plan (Free Text) Assessment: 57 year old male with history of CAD s/p CABG and 4 stents, hypertension, thyroid disease, and tobacco abuse presenting s/p cardiac arrest secondary to a cardiac event (possible posterior wall infarct) presenting with cardiogenic shock, code freeze completed, patient now currently extubated and doing remarkably well. Plan: Cardiac Arrest - Etiology suspected to be 2/2 ventricular fibrillation - EKG reveals ST-T segments findings consistent with ischemia, possible inferior wall MO, intraventricular conduction delay evidenced by EKG and cardiac enzyme elevation - Echocardiogram reveals EF 20-25% with septum and apex severely hypokinetic. Left ventricular systolic function severely impaired - Milrinone drip has been discontinued - For now will continue with PO lasix, aldactone started as per ICU - Cardiology states will follow up with patient upon discharge for possible further intervention. Also advised patient on smoking sensation. - Speech and Swallow evaluation done, will start finely chopped with thin liquid diet as recommended Hypernatremia - Patient started on D5W by cardiology, will continue to monitor sodium with BNP and discontinue fluids when needed Tachycardia - Carvedilol increased from 6.25 mg BID to 12.5 mg BID Metabolic and respiratory Acidosis - pH stabilized Hypercapnic respiratory failure -Resolved, patient now 97% on NC 4L Anoxic encephalopathy secondary to cardiac arrest - Code freeze protocol completed - Neurology consulted and following, recs as followed - recommending normothermic, normotensive, maintain electrolytes, head elevated at least 30 degrees - Initial CT head reveals findings concerning for global hypoxic ischemic injury however repeat CT head reveals no acute findings - Initial EEG reveals very low amplitude rhythm with no normal posterior dominant rhythm. No interictal epileptiform discharges. No seizure. EEG is abnormal. Repeat EEG shows slow brain electrical activity, but no seizures. - Currently off sedation - As per neuro: will continue with 1500mg IVPB Q 12 and additional depakote at 1000 mg IVPB q 12 Leukocytosis secvondary to aspiration pneumonia vs CAP - ID consulted and following - Patient now febrile, as per ID: will continue to monitor patient off antibiotics since patient is prone to nosocomial infections - Repeat blood cultures, urine cultures and sputum cultures are negative and procalcitonin decreased at 0.32 - Patient afebrile >72hours Hypertension - Carvedilol started considering patient's EF of 23% - Add lisinopril Smoking Sensation - Patient educated on smoking cessation; states he will stop. GI/DVT ppx - Protonix gtt - Heparin gtt Dispo: quality assurance project manager referral for LTAC; work in progress. Patient's union states they are working to get necessary documents in order. Case and Plan discussed with attending Shiva Burt PGY1
[2018-02-12 09:17] LABS: BASO # 0.01 K/mm3 (0.0-2.0); BASO % 0.1 % (0.0-3.0); EOS # 0.2 (0.0-0.7); EOS % 1.9 % (1.5-5.0); GRAN # 4.84 (1.4-6.5); GRAN % 62.5 % (50.0-68.0); HEMOGLOBIN 10.6 g/dL (14.0-18.0); LYMPH # 1.8 (1.2-3.4); LYMPH % 23.5 % (22.0-35.0); MEAN CELL VOLUME 89.2 fl (80.0-105.0); MEAN CORPUSCULAR HEMOGLOBIN 29.4 pg (25.0-35.0); MEAN CORPUSCULAR HGB CONC 32.9 g/dl (31.0-37.0); MEAN PLATELET VOLUME 10.5 fl (7.0-11.0); MONO # 0.9 (0.1-0.6); RBC 3.61 10^6/uL (3.5-6.1); RED CELL DISTRIBUTION WIDTH 14.1 % (11.5-14.5); WHITE BLOOD COUNT 7.8 10^3/ul (4.5-11.0)
[2018-02-12] MEDS: levETIRAcetam 1,500 MG in Sodium Chloride 0.9% 100 ML IV SCH ×2 (09:18→21:39)
[2018-02-12] MEDS: Valproate 1,000 MG in Sodium Chloride 0.9% 100 ML IVPB SCH ×2 (09:18→22:44)
[2018-02-12 09:33] LABS: INR 1.29 (0.93-1.08); PARTIAL THROMBOPLASTIN TIME 35.3 Seconds (25.1-36.5); PROTHROMBIN TIME 14.5 SECONDS (9.4-12.5)
[2018-02-12 09:35] LABS: ALB/GLOB RATIO 1.2 (1.1-1.8); ALBUMIN 3.6 g/dL (3.0-4.8); ALT/SGPT 54 U/L (7-56); AST/SGOT 52 U/L (17-59); BLOOD UREA NITROGEN 23 mg/dL (7-21); CALCIUM 8.9 mg/dL (8.4-10.5); GFR AFRICAN-AMERICAN > 60; GFR NON-AFRICAN AMERICAN > 60
--- NOTE | 2018-02-12 09:51 | RAD ---
HISTORY: Post extubated COMPARISON: 02/10/2018 FINDINGS: LUNGS: No active pulmonary disease. PLEURA: No significant pleural effusion identified, no pneumothorax apparent. CARDIOVASCULAR: Normal. OSSEOUS STRUCTURES: Sternal wires VISUALIZED UPPER ABDOMEN: Normal. OTHER FINDINGS: None. IMPRESSION: No active disease.
--- NOTE | 2018-02-12 10:34 | CP.PCM.PN ---
Subjective - Date & Time of Evaluation Date of Evaluation: 02/12/18 Time of Evaluation: 10:00 - Subjective Subjective: Patient is now extubated, no fevers, awake, alert, answers questions and is conversant. Objective - Vital Signs/Intake and Output Vital Signs (last 24 hours): Temp Pulse Resp BP Pulse Ox 97.8 F 78 14 135/55 L 92 L 02/12/18 04:00 02/12/18 02:00 02/11/18 19:00 02/11/18 20:01 02/11/18 20:01 Intake and Output: 02/12/18 02/12/18 06:59 18:59 Intake Total 580 Output Total 2300 Balance -1720 - Medications Medications: Current Medications Acetaminophen (Tylenol 325mg Tab) 650 mg PO Q6H PRN PRN Reason: Fever >100.4 F Last Admin: 02/09/18 10:36 Dose: 650 mg Acetaminophen (Tylenol 325 Mg Supp) 325 mg RC Q6H PRN PRN Reason: Fever >100.4 F Albuterol/Ipratropium (Duoneb 3 Mg/0.5 Mg (3 Ml) Ud) 3 ml IH [id number] PRN PRN Reason: Shortness of Breath Last Admin: 02/11/18 10:29 Dose: 3 ml Artificial Tears (Artificial Tears) 0 ml OU Q8 PRN PRN Reason: Dry eyes Last Admin: 02/07/18 08:40 Dose: 2 drop Aspirin (Aspirin Chewable) 81 mg PO DAILY [facility] Last Admin: 02/11/18 10:10 Dose: 81 mg Atorvastatin Calcium (Lipitor) 40 mg PO DIN [facility] Last Admin: 02/11/18 17:24 Dose: Not Given Carvedilol (Coreg) 6.25 mg PO BID [facility] Last Admin: 02/11/18 17:24 Dose: Not Given Furosemide (Lasix) 40 mg IVP DAILY [facility] Last Admin: 02/11/18 09:27 Dose: 40 mg Heparin Sodium (Porcine) (Heparin) 5,000 units SC Q8 [facility] PRN Reason: Protocol Last Admin: 02/12/18 05:44 Dose: 5,000 units Levetiracetam 1,500 mg/ Sodium (Chloride) 115 mls @ 460 mls/hr IV Q12 [facility] Last Admin: 02/11/18 22:03 Dose: 460 mls/hr Valproate Sodium 1,000 mg/ (Sodium Chloride) 110 mls @ 100 mls/hr IVPB Q12 [facility] Last Admin: 02/11/18 22:02 Dose: 100 mls/hr Acetaminophen (Ofirmev) 1,000 mg in 100 mls @ 400 mls/hr IVPB Q6H PRN PRN Reason: Temperature Stop: 02/13/18 20:37 Last Admin: 02/11/18 22:47 Dose: 400 mls/hr Insulin Human Regular (Humulin R Med) 0 units SC Q6 [facility] PRN Reason: Protocol Last Admin: 02/12/18 02:16 Dose: Not Given Lisinopril (Zestril) 10 mg PO DAILY [facility] Last Admin: 02/11/18 14:27 Dose: Not Given Lorazepam (Ativan) 1 mg IVP Q6H PRN; Protocol PRN Reason: Seizure activity Last Admin: 02/06/18 14:28 Dose: 1 mg Ondansetron HCl (Zofran Inj) 4 mg IVP Q6H PRN PRN Reason: Nausea/Vomiting Last Admin: 02/11/18 09:24 Dose: 4 mg Pantoprazole Sodium (Protonix Inj) 40 mg IVP Q12 [facility] Last Admin: 02/11/18 22:04 Dose: 40 mg Phenol/Menthol (Phenaseptic 1.4% Throat [place]) 1 ml MT Q2H PRN PRN Reason: Sore Throat - Labs Labs: 02/11/18 05:17 02/11/18 20:25 PT 13.8 SECONDS (9.4-12.5) H 02/11/18 05:17 INR 1.20 (0.93-1.08) H 02/11/18 05:17 APTT 27.3 Seconds (25.1-36.5) 02/11/18 05:17 - Constitutional Appears: Non-toxic, Chronically Ill - Head Exam Head Exam: NORMAL INSPECTION - ENT Exam ENT Exam: Mucous Membranes Moist - Neck Exam Neck Exam: absent: Meningismus - Respiratory Exam Respiratory Exam: Decreased Breath Sounds. absent: Rales - Cardiovascular Exam Cardiovascular Exam: +S1, +S2 - GI/Abdominal Exam GI & Abdominal Exam: Soft. absent: Tenderness Assessment and Plan - Assessment and Plan (Free Text) Plan: Assessment S/P Systemic Inflammatory response syndrome, and S/P ventilator-dependent respiratory failure after cardiac arrest etiology, S/P treatment fort aspiration pneumonia CAD S/P CABG HTN thyroid disease significant smoking history Plan will continue to monitor the patient off antibiotics since he is at risk for nosocomial infections
--- NOTE | 2018-02-12 11:13 | CP.PCM.PN ---
Subjective - Date & Time of Evaluation Date of Evaluation: 02/12/18 Time of Evaluation: 11:13 - Subjective Subjective: Mr. Armenta was seen and examined at the bedside in ICU. He is awake, on nasal cannula for oxygen supplement. He opens his eyes spontaneously, able to participate in a pleasant conversation, follows commands with his upper extremities stronger than the lowe, but much improved in comparison from previous examination. He denies any headache, dizziness, lightheadedness, nausea , or vomiting. There was no untoward events overnight. Objective - Vital Signs/Intake and Output Vital Signs (last 24 hours): Temp Pulse Resp BP Pulse Ox 97.8 F 78 14 135/55 L 92 L 02/12/18 04:00 02/12/18 02:00 02/11/18 19:00 02/11/18 20:01 02/11/18 20:01 Intake and Output: 02/12/18 02/12/18 06:59 18:59 Intake Total 580 Output Total 2300 Balance -1720 - Medications Medications: Current Medications Acetaminophen (Tylenol 325mg Tab) 650 mg PO Q6H PRN PRN Reason: Fever >100.4 F Last Admin: 02/09/18 10:36 Dose: 650 mg Acetaminophen (Tylenol 325 Mg Supp) 325 mg RC Q6H PRN PRN Reason: Fever >100.4 F Albuterol/Ipratropium (Duoneb 3 Mg/0.5 Mg (3 Ml) Ud) 3 ml IH [id number] PRN PRN Reason: Shortness of Breath Last Admin: 02/11/18 10:29 Dose: 3 ml Artificial Tears (Artificial Tears) 0 ml OU Q8 PRN PRN Reason: Dry eyes Last Admin: 02/07/18 08:40 Dose: 2 drop Aspirin (Aspirin Chewable) 81 mg PO DAILY [facility] Last Admin: 02/12/18 09:06 Dose: Not Given Atorvastatin Calcium (Lipitor) 40 mg PO DIN [facility] Last Admin: 02/11/18 17:24 Dose: Not Given Carvedilol (Coreg) 6.25 mg PO BID [facility] Last Admin: 02/12/18 09:06 Dose: Not Given Furosemide (Lasix) 40 mg IVP DAILY [facility] Last Admin: 02/11/18 09:27 Dose: 40 mg Heparin Sodium (Porcine) (Heparin) 5,000 units SC Q8 [facility] PRN Reason: Protocol Last Admin: 02/12/18 05:44 Dose: 5,000 units Levetiracetam 1,500 mg/ Sodium (Chloride) 115 mls @ 460 mls/hr IV Q12 [facility] Last Admin: 02/12/18 09:18 Dose: 460 mls/hr Valproate Sodium 1,000 mg/ (Sodium Chloride) 110 mls @ 100 mls/hr IVPB Q12 [facility] Last Admin: 02/12/18 09:18 Dose: 100 mls/hr Acetaminophen (Ofirmev) 1,000 mg in 100 mls @ 400 mls/hr IVPB Q6H PRN PRN Reason: Temperature Stop: 02/13/18 20:37 Last Admin: 02/11/18 22:47 Dose: 400 mls/hr Dextrose (Dextrose 5% In Water 1000 Ml) 1,000 mls @ 100 mls/hr IV .Q10H [facility] Last Admin: 02/12/18 10:16 Dose: 100 mls/hr Insulin Human Regular (Humulin R Med) 0 units SC Q6 [facility] PRN Reason: Protocol Last Admin: 02/12/18 02:16 Dose: Not Given Lisinopril (Zestril) 10 mg PO DAILY [facility] Last Admin: 02/12/18 09:06 Dose: Not Given Lorazepam (Ativan) 1 mg IVP Q6H PRN; Protocol PRN Reason: Seizure activity Last Admin: 02/06/18 14:28 Dose: 1 mg Ondansetron HCl (Zofran Inj) 4 mg IVP Q6H PRN PRN Reason: Nausea/Vomiting Last Admin: 02/11/18 09:24 Dose: 4 mg Pantoprazole Sodium (Protonix Inj) 40 mg IVP Q12 [facility] Last Admin: 02/12/18 09:26 Dose: 40 mg Phenol/Menthol (Phenaseptic 1.4% Throat [place]) 1 ml MT Q2H PRN PRN Reason: Sore Throat - Labs Labs: 02/12/18 09:00 02/12/18 09:00 PT 14.5 SECONDS (9.4-12.5) H 02/12/18 09:00 INR 1.29 (0.93-1.08) H 02/12/18 09:00 APTT 35.3 Seconds (25.1-36.5) 02/12/18 09:00 - Constitutional Appears: No Acute Distress - Head Exam Head Exam: NORMAL INSPECTION - Eye Exam Pupil Exam: Miosis Additional comments: brisk - ENT Exam ENT Exam: Mucous Membranes Dry - Neck Exam Neck Exam: Full ROM - Neurological Exam Neurological Exam: Alert, Awake, Oriented x3 Neuro motor strength exam: Left Upper Extremity: 4, Right Upper Extremity: 4, Left Lower Extremity: 3, Right Lower Extremity: 3 Additional comments: neurological improved from previous examination, alert, oriented, participates in a conversation, follows commands, sensation intact. Assessment and Plan (1) Anoxic brain injury Assessment & Plan: Case discussed with Dr. Pacheco, continue all current medical, physical, occupational, and speech therapies. pending keppra level. Recommend normotension , keep head of the bed elevated at least 30 degrees, treat any underlying electrolyte abnormalities, and acute rehab for possible discharge planning. Status: Acute
--- NOTE | 2018-02-12 15:21 | CP.PCM.PN ---
Subjective - Date & Time of Evaluation Date of Evaluation: 02/12/18 Time of Evaluation: 15:18 - Subjective Subjective: Nephrology Consultation Note covering for Dr Estrada Assessment: Stable Acute Kidney Injury (N17.9) resolved Hypernatremia, hypokalemia CAD s/p CABG, sepsis, pneumonia Plan No acute need for renal replacement therapy at this time. VANESA resolved, good urine output Hypertension control with meds as ordered. Patient not on ACEI/ARB due to recent VANESA. can consider if BP high Monitor Input/Output, daily weights and renal function with basic metabolic panel agree with D5W for hypernatremia supplements lytes as needed Dose meds/antibiotics for GFR >60. Glycemic control Further work up for as per primary team Thanks for allowing me to participate in care of your patient. Please call if any Qs Dr Taco Membreno Office: [phone] Subjective: Noted events overnight. Patients feels weak. Denies chest pain, palpitation, shortness of breath, leg swelling. All other negative Physical Examination: General Appearance: Comfortable, in no acute respiratory distress, co-operative . ill appearing Vitals reviewed and noted as below Head; Atraumatic, normocephalic ENT: no ulcers no thrush. Tongue is midline. Oropharynx: no rash or ulcers. EYES: Pupils are equal, round and reactive to light accommodation. Eye muscles and extraocular movement intact. Sclera is anicteric. Neck; supple no lymphadenopathy, no thyromegaly or bruit Lungs: Normal respiratory rate/effort. Breath sounds bilateral equal and clear Heart: Normal rate. s1s2 normal. No rub or gallop. Extremities: no edema. No varicose veins Neurological: Patient is alert, awake and oriented to person, place and time. No focal deficit. has generalized weakness Skin: Warm and dry. Normal turgor. No rash. Palpitation: Normal elasticity for age Abdomen: Abdomen is soft. Bowel sounds +. There is no abdominal tenderness, no guarding/rigidity no organomegaly Psych: normal insight and normal affect/mood MSK: no joint tenderness or swelling. Digits and nails normal, no deformity : kidney or bladder not palpable Labs/imaging reviewed. Past medical history, past surgical history, family history, social history, allergy reviewed and noted as below Family hx: no hx of CKD. Rest non-contributory Objective - Vital Signs/Intake and Output Vital Signs (last 24 hours): Temp Pulse Resp BP Pulse Ox 98.4 F 93 H 14 135/53 L 94 L 02/12/18 13:00 02/12/18 13:00 02/12/18 13:00 02/12/18 13:00 02/12/18 13:00 Intake and Output: 02/12/18 02/12/18 06:59 18:59 Intake Total 580 Output Total 2300 Balance -1720 - Medications Medications: Current Medications Acetaminophen (Tylenol 325mg Tab) 650 mg PO Q6H PRN PRN Reason: Fever >100.4 F Last Admin: 02/09/18 10:36 Dose: 650 mg Acetaminophen (Tylenol 325 Mg Supp) 325 mg RC Q6H PRN PRN Reason: Fever >100.4 F Albuterol/Ipratropium (Duoneb 3 Mg/0.5 Mg (3 Ml) Ud) 3 ml IH [id number] PRN PRN Reason: Shortness of Breath Last Admin: 02/11/18 10:29 Dose: 3 ml Artificial Tears (Artificial Tears) 0 ml OU Q8 PRN PRN Reason: Dry eyes Last Admin: 02/07/18 08:40 Dose: 2 drop Aspirin (Aspirin Chewable) 81 mg PO DAILY [facility] Last Admin: 02/12/18 09:06 Dose: Not Given Atorvastatin Calcium (Lipitor) 40 mg PO DIN [facility] Last Admin: 02/11/18 17:24 Dose: Not Given Carvedilol (Coreg) 12.5 mg PO BID [facility] Furosemide (Lasix) 40 mg PO DAILY [facility] Heparin Sodium (Porcine) (Heparin) 5,000 units SC Q8 [facility] PRN Reason: Protocol Last Admin: 02/12/18 13:28 Dose: 5,000 units Levetiracetam 1,500 mg/ Sodium (Chloride) 115 mls @ 460 mls/hr IV Q12 [facility] Last Admin: 02/12/18 09:18 Dose: 460 mls/hr Valproate Sodium 1,000 mg/ (Sodium Chloride) 110 mls @ 100 mls/hr IVPB Q12 [facility] Last Admin: 02/12/18 09:18 Dose: 100 mls/hr Dextrose (Dextrose 5% In Water 1000 Ml) 1,000 mls @ 100 mls/hr IV .Q10H [facility] Last Admin: 02/12/18 10:16 Dose: 100 mls/hr Insulin Human Regular (Humulin R Med) 0 units SC ACHS [facility] PRN Reason: Protocol Last Admin: 02/12/18 13:26 Dose: Not Given Lisinopril (Zestril) 10 mg PO DAILY [facility] Last Admin: 02/12/18 09:06 Dose: Not Given Lorazepam (Ativan) 1 mg IVP Q6H PRN; Protocol PRN Reason: Seizure activity Last Admin: 02/06/18 14:28 Dose: 1 mg Ondansetron HCl (Zofran Inj) 4 mg IVP Q6H PRN PRN Reason: Nausea/Vomiting Last Admin: 02/11/18 09:24 Dose: 4 mg Pantoprazole Sodium (Protonix Ec Tab) 40 mg PO Q12 [facility] Phenol/Menthol (Phenaseptic 1.4% Throat [place]) 1 ml MT Q2H PRN PRN Reason: Sore Throat Spironolactone (Aldactone) 25 mg PO HS [facility] - Labs Labs: 02/12/18 09:00 02/12/18 09:00 PT 14.5 SECONDS (9.4-12.5) H 02/12/18 09:00 INR 1.29 (0.93-1.08) H 02/12/18 09:00 APTT 35.3 Seconds (25.1-36.5) 02/12/18 09:00
[2018-02-12 16:00] LABS: BLOOD UREA NITROGEN 22 mg/dL (7-21); CALCIUM 8.4 mg/dL (8.4-10.5); GFR AFRICAN-AMERICAN > 60; GFR NON-AFRICAN AMERICAN > 60
[2018-02-12] MEDS: Pantoprazole 40 mg EC Tab PO SCH (21:14)
[2018-02-12 21:44] LABS: BLOOD UREA NITROGEN 20 mg/dL (7-21); CALCIUM 8.4 mg/dL (8.4-10.5); GFR AFRICAN-AMERICAN > 60; GFR NON-AFRICAN AMERICAN > 60
[2018-02-13 07:07] LABS: BASO # 0.01 K/mm3 (0.0-2.0); BASO % 0.2 % (0.0-3.0); EOS # 0.2 (0.0-0.7); EOS % 2.9 % (1.5-5.0); GRAN # 3.75 (1.4-6.5); GRAN % 57.8 % (50.0-68.0); HEMOGLOBIN 9.8 g/dL (14.0-18.0); LYMPH # 1.7 (1.2-3.4); MEAN CELL VOLUME 88.5 fl (80.0-105.0); MEAN CORPUSCULAR HGB CONC 32.8 g/dl (31.0-37.0); MEAN PLATELET VOLUME 10.1 fl (7.0-11.0); MONO # 0.9 (0.1-0.6); MONO % 13.1 % (1.0-6.0); RBC 3.38 10^6/uL (3.5-6.1); WHITE BLOOD COUNT 6.5 10^3/ul (4.5-11.0)
[2018-02-13 07:22] LABS: ALB/GLOB RATIO 1.1 (1.1-1.8); ALBUMIN 3.2 g/dL (3.0-4.8); ALT/SGPT 47 U/L (7-56); AST/SGOT 34 U/L (17-59); BLOOD UREA NITROGEN 18 mg/dL (7-21); CALCIUM 8.4 mg/dL (8.4-10.5); GFR AFRICAN-AMERICAN > 60; GFR NON-AFRICAN AMERICAN > 60
[2018-02-13 07:27] LABS: INR 1.3 (0.93-1.08); PARTIAL THROMBOPLASTIN TIME 28.3 Seconds (25.1-36.5)
[2018-02-13] MEDS ORDERED: Potassium Chloride 20 mEq ER Tab PO ONE (08:23)
[2018-02-13] MEDS: Insulin Reg-MEDIUM-Coverage SC SCH ×4 (08:29→22:14)
[2018-02-13] MEDS: Pantoprazole 40 mg EC Tab PO SCH ×2 (09:56→22:18)
[2018-02-13] MEDS: POLYETHYLENE GLYCOL 3350 17 GM/Dose PACKET PO SCH ×2 (09:57→17:52)
[2018-02-13] MEDS: Valproate 1,000 MG in Sodium Chloride 0.9% 100 ML IVPB SCH ×2 (09:57→22:14)
--- NOTE | 2018-02-13 10:26 | PN ---
DATE: 02/13/2018 SUBJECTIVE: The patient is sitting up in bed on telemetry. He is comfortable. He remains weak and debilitated. He denies any chest pain. He was seen in the presence of his and brother. Neurologically, he appears clinically improved. CURRENT MEDICATIONS: Include aspirin, carvedilol 12.5 mg b.i.d., DuoNeb inhaler, subcutaneous heparin, insulin, Lasix 40 mg daily, Keppra, Lipitor 40 mg daily, Protonix 40 mg every 12 hours, valproic acid, Zestril 10 mg daily. OBJECTIVE: GENERAL: He is a middle-aged man, who appears comfortable at rest. VITAL SIGNS: His blood pressure 152/65 with pulse of 72 and sinus, occasional APCs, respirations are 14. He is afebrile. HEENT: Normocephalic, atraumatic. NECK: Supple. No JVD noted. CHEST: Few scattered rhonchi heard. HEART: PMI displaced laterally with soft tones noted. ABDOMEN: Soft, nontender with normoactive bowel sounds. EXTREMITIES: No edema. DIAGNOSTIC DATA: His white count 6.5, hemoglobin and hematocrit of 9.8 and 29.9 with a platelet count of 163,000, potassium 3.3, sodium 146, BUN and creatinine 18 and 0.8. IMPRESSION: 1. Status post out of hospital cardiac arrest with remarkable clinical improvement. 2. Severe left ventricular dysfunction. 3. Coronary artery disease, status post remote infarct and bypass surgery. 4. History of tobacco abuse. 5. Hypertension, suboptimal control. RECOMMENDATIONS: Telemetry monitoring will continue. Potassium supplement has been ordered. Intensification of his antihypertensive therapy with an angiotensin receptor cristina in place of his WILLA inhibitor will be ordered as well. A cardiac catheterization will be necessary to assess his coronary anatomy and status of his bypass grafts. If a lesion which may have precipitated ischemia is found, percutaneous intervention will be attempted. Given the events that occurred, he will need ICD implant. We will continue to follow and make further recommendations as appropriate. Bimal Pina MD [facility]
[2018-02-13] MEDS: levETIRAcetam 1,500 MG in Sodium Chloride 0.9% 100 ML IV SCH ×2 (11:20→22:15)
--- NOTE | 2018-02-13 14:30 | PN ---
DATE: 02/13/2018 SUBJECTIVE: The patient was seen earlier today in room 261, bed 2. No fevers and no chills. No abdominal pain. PHYSICAL EXAMINATION: VITAL SIGNS: Temperature is 98, blood pressure is 152/65, respiratory rate of 20, heart rate of 68. HEENT: Unremarkable. NECK: Supple. LUNGS: Have decreased breath sounds. HEART: Normal S1, S2. ABDOMEN: Soft, nontender. LABORATORY EXAMINATION: Reveals a white count of 6.5, hemoglobin of 9, platelets of 163. Coagulation is noted. Chemistries reveals a BUN of 18, creatinine of 0.6. Procalcitonin reveals the patient is . Urinalysis is noted and hepatitis profile is negative. Microbiology reveals the urine cultures no growth. The blood cultures no growth. Review of orders reveals the patient to be on no antibiotics. ASSESSMENT AND PLAN: A 57-year-old male seen earlier in 261 with systemic inflammatory response syndrome status post ventilator-dependent respiratory failure after a cardiac arrest, status post treatment for aspiration pneumonia in a patient with coronary artery disease, history of coronary artery bypass graft, hypertension, thyroid disease and currently off of antibiotics, afebrile, normal white count, normal procalcitonin and he is at risk for developing nosocomial infections. Michel Delatorre MD
--- NOTE | 2018-02-13 15:49 | CP.PCM.PN ---
<Shiva Burt - Last Filed: 02/13/18 15:46> Subjective - Date & Time of Evaluation Date of Evaluation: 02/13/18 Time of Evaluation: 05:35 - Subjective Subjective: Patient seen and examined at bedside. States he is doing well. Endorses he has not had a bowel movement since being in the hospital but wants to attempt when his brother in law arrives. Ezequiel chest pain, shortness of breath, nausea, vomiting, diarrhea, fevers, chills, headache, cough. Objective - Vital Signs/Intake and Output Vital Signs (last 24 hours): Temp Pulse Resp BP Pulse Ox 99 F 71 19 151/91 H 95 02/13/18 12:00 02/13/18 12:00 02/13/18 12:00 02/13/18 12:00 02/13/18 06:00 Intake and Output: 02/13/18 02/13/18 06:59 18:59 Intake Total 650 Output Total 600 Balance 50 - Medications Medications: Current Medications Acetaminophen (Tylenol 325mg Tab) 650 mg PO Q6H PRN PRN Reason: Fever >100.4 F Last Admin: 02/09/18 10:36 Dose: 650 mg Acetaminophen (Tylenol 325 Mg Supp) 325 mg RC Q6H PRN PRN Reason: Fever >100.4 F Albuterol/Ipratropium (Duoneb 3 Mg/0.5 Mg (3 Ml) Ud) 3 ml IH [id number] PRN PRN Reason: Shortness of Breath Last Admin: 02/11/18 10:29 Dose: 3 ml Artificial Tears (Artificial Tears) 0 ml OU Q8 PRN PRN Reason: Dry eyes Last Admin: 02/07/18 08:40 Dose: 2 drop Aspirin (Aspirin Chewable) 81 mg PO DAILY [facility] Last Admin: 02/13/18 09:56 Dose: 81 mg Atorvastatin Calcium (Lipitor) 40 mg PO DIN [facility] Last Admin: 02/12/18 16:19 Dose: 40 mg Carvedilol (Coreg) 25 mg PO BID [facility] Last Admin: 02/13/18 09:55 Dose: 25 mg Furosemide (Lasix) 40 mg PO DAILY [facility] Last Admin: 02/13/18 09:56 Dose: 40 mg Heparin Sodium (Porcine) (Heparin) 5,000 units SC Q8 [facility] PRN Reason: Protocol Last Admin: 02/13/18 13:47 Dose: 5,000 units Levetiracetam 1,500 mg/ Sodium (Chloride) 115 mls @ 460 mls/hr IV Q12 [facility] Last Admin: 02/13/18 11:20 Dose: 460 mls/hr Valproate Sodium 1,000 mg/ (Sodium Chloride) 110 mls @ 100 mls/hr IVPB Q12 [facility] Last Admin: 02/13/18 09:57 Dose: 100 mls/hr Insulin Human Regular (Humulin R Med) 0 units SC ACHS [facility] PRN Reason: Protocol Last Admin: 02/13/18 12:49 Dose: 1 unit Lorazepam (Ativan) 1 mg IVP Q6H PRN; Protocol PRN Reason: Seizure activity Last Admin: 02/06/18 14:28 Dose: 1 mg Losartan Potassium (Cozaar) 100 mg PO DAILY [facility] Last Admin: 02/13/18 09:54 Dose: 100 mg Ondansetron HCl (Zofran Inj) 4 mg IVP Q6H PRN PRN Reason: Nausea/Vomiting Last Admin: 02/11/18 09:24 Dose: 4 mg Pantoprazole Sodium (Protonix Ec Tab) 40 mg PO Q12 [facility] Last Admin: 02/13/18 09:56 Dose: 40 mg Phenol/Menthol (Phenaseptic 1.4% Throat [place]) 1 ml MT Q2H PRN PRN Reason: Sore Throat Polyethylene Glycol (Miralax) 17 gm PO BID [facility] Last Admin: 02/13/18 09:57 Dose: 17 gm Spironolactone (Aldactone) 25 mg PO DAILY [facility] Last Admin: 02/13/18 09:56 Dose: 25 mg - Labs Labs: 02/13/18 06:00 02/13/18 06:00 PT 15.0 SECONDS (9.4-12.5) H 02/13/18 06:00 INR 1.30 (0.93-1.08) H 02/13/18 06:00 APTT 28.3 Seconds (25.1-36.5) 02/13/18 06:00 - Head Exam Head Exam: ATRAUMATIC, NORMAL INSPECTION, NORMOCEPHALIC - Eye Exam Eye Exam: EOMI, Normal appearance - ENT Exam ENT Exam: Mucous Membranes Moist - Neck Exam Neck Exam: Full ROM - Respiratory Exam Respiratory Exam: Clear to Ausculation Bilateral. absent: Rales, Rhonchi, Wheezes - Cardiovascular Exam Cardiovascular Exam: REGULAR RHYTHM, +S1, +S2 - GI/Abdominal Exam GI & Abdominal Exam: Soft, Normal Bowel Sounds - Extremities Exam Extremities Exam: absent: Normal Inspection (skin discoloration most likely due to chronic venous stasis), Tenderness - Back Exam Back Exam: NORMAL INSPECTION - Neurological Exam Neurological Exam: Alert, Awake, Oriented x3 Neuro motor strength exam: Left Upper Extremity: 2/1, Right Upper Extremity: 2/1 , Left Lower Extremity: 3, Right Lower Extremity: 3 - Psychiatric Exam Psychiatric exam: Normal Affect, Normal Mood - Skin Skin Exam: Warm. absent: Normal Color (skin discolorations in bilateral lower extremities) Assessment and Plan - Assessment and Plan (Free Text) Assessment: 57 year old male with history of CAD s/p CABG and 4 stents, hypertension, thyroid disease, and tobacco abuse presenting s/p cardiac arrest secondary to a cardiac event (possible posterior wall infarct) presenting with cardiogenic shock, code freeze completed, patient now currently extubated and doing remarkably well now transferred from ICU to telemetry. Plan: Cardiac Arrest - Etiology suspected to be 2/2 ventricular fibrillation - EKG reveals ST-T segments findings consistent with ischemia, possible inferior wall OR, intraventricular conduction delay evidenced by EKG and cardiac enzyme elevation - Echocardiogram reveals EF 20-25% with septum and apex severely hypokinetic. Left ventricular systolic function severely impaired - For now will continue with PO lasix, aldactone as well as losartan as per Cardiology - Cardiology states will follow up with patient upon discharge for possible further intervention including eventual ICD placement. Also advised patient on smoking sensation. - Continue finely chopped with thin liquid diet as recommended by speech pathologist - Physical therapy evaluation to be done tomorrow; follow up with recommendations Hypernatremia - resolved Tachycardia - Continue carvedilol increased from 12.5 mg BID to 25 mg BID Metabolic and respiratory Acidosis - pH stabilized Hypercapnic respiratory failure -Resolved Anoxic encephalopathy secondary to cardiac arrest - Resolved - Code freeze protocol completed - Neurology consulted and following, recs as followed - recommending normothermic, normotensive, maintain electrolytes, head elevated at least 30 degrees - Initial CT head reveals findings concerning for global hypoxic ischemic injury however repeat CT head reveals no acute findings - Initial EEG reveals very low amplitude rhythm with no normal posterior dominant rhythm. No interictal epileptiform discharges. No seizure. EEG is abnormal. Repeat EEG shows slow brain electrical activity, but no seizures - As per neuro: will continue with 1500mg IVPB Q 12 and additional depakote at 1000 mg IVPB q 12 Leukocytosis secvondary to aspiration pneumonia vs CAP - ID consulted and following - Patient now febrile, as per ID: will continue to monitor patient off antibiotics since patient is prone to nosocomial infections - Repeat blood cultures, urine cultures and sputum cultures are negative and procalcitonin decreased at 0.32 - Patient remains afebrile Hypertension - Carvedilol started considering patient's EF of 23% - Losartan and Aldactone added to regimen Smoking Sensation - Patient educated on smoking cessation and is in agreement GI/DVT ppx - Protonix gtt - Heparin SC and SCDs Dispo: client support manager referral for LTAC; work in progress. Patient's union states they are working to get necessary documents in order. Case and Plan discussed with attending Shiva Burt PGY1 <Mariano Santana - Last Filed: 02/13/18 20:52> Objective - Vital Signs/Intake and Output Vital Signs (last 24 hours): Temp Pulse Resp BP Pulse Ox 99.1 F 74 19 159/80 H 95 02/13/18 17:59 02/13/18 18:00 02/13/18 17:59 02/13/18 17:59 02/13/18 06:00 - Medications Medications: Current Medications Acetaminophen (Tylenol 325mg Tab) 650 mg PO Q6H PRN PRN Reason: Fever >100.4 F Last Admin: 02/09/18 10:36 Dose: 650 mg Acetaminophen (Tylenol 325 Mg Supp) 325 mg RC Q6H PRN PRN Reason: Fever >100.4 F Albuterol/Ipratropium (Duoneb 3 Mg/0.5 Mg (3 Ml) Ud) 3 ml IH [id number] PRN PRN Reason: Shortness of Breath Last Admin: 02/11/18 10:29 Dose: 3 ml Artificial Tears (Artificial Tears) 0 ml OU Q8 PRN PRN Reason: Dry eyes Last Admin: 02/07/18 08:40 Dose: 2 drop Aspirin (Aspirin Chewable) 81 mg PO DAILY [facility] Last Admin: 02/13/18 09:56 Dose: 81 mg Atorvastatin Calcium (Lipitor) 40 mg PO DIN [facility] Last Admin: 02/13/18 17:51 Dose: 40 mg Carvedilol (Coreg) 25 mg PO BID [facility] Last Admin: 02/13/18 17:51 Dose: 25 mg Furosemide (Lasix) 40 mg PO DAILY [facility] Last Admin: 02/13/18 09:56 Dose: 40 mg Heparin Sodium (Porcine) (Heparin) 5,000 units SC Q8 [facility] PRN Reason: Protocol Last Admin: 02/13/18 13:47 Dose: 5,000 units Levetiracetam 1,500 mg/ Sodium (Chloride) 115 mls @ 460 mls/hr IV Q12 [facility] Last Admin: 02/13/18 11:20 Dose: 460 mls/hr Valproate Sodium 1,000 mg/ (Sodium Chloride) 110 mls @ 100 mls/hr IVPB Q12 [facility] Last Admin: 02/13/18 09:57 Dose: 100 mls/hr Insulin Human Regular (Humulin R Med) 0 units SC ACHS [facility] PRN Reason: Protocol Last Admin: 02/13/18 17:52 Dose: Not Given Lorazepam (Ativan) 1 mg IVP Q6H PRN; Protocol PRN Reason: Seizure activity Last Admin: 02/06/18 14:28 Dose: 1 mg Losartan Potassium (Cozaar) 100 mg PO DAILY [facility] Last Admin: 02/13/18 09:54 Dose: 100 mg Ondansetron HCl (Zofran Inj) 4 mg IVP Q6H PRN PRN Reason: Nausea/Vomiting Last Admin: 02/11/18 09:24 Dose: 4 mg Pantoprazole Sodium (Protonix Ec Tab) 40 mg PO Q12 [facility] Last Admin: 02/13/18 09:56 Dose: 40 mg Phenol/Menthol (Phenaseptic 1.4% Throat [place]) 1 ml MT Q2H PRN PRN Reason: Sore Throat Polyethylene Glycol (Miralax) 17 gm PO BID [facility] Last Admin: 02/13/18 17:52 Dose: 17 gm Spironolactone (Aldactone) 25 mg PO DAILY [facility] Last Admin: 02/13/18 09:56 Dose: 25 mg - Labs Labs: 02/13/18 06:00 02/13/18 06:00 PT 15.0 SECONDS (9.4-12.5) H 02/13/18 06:00 INR 1.30 (0.93-1.08) H 02/13/18 06:00 APTT 28.3 Seconds (25.1-36.5) 02/13/18 06:00 Attending/Attestation - Attestation I have personally seen and examined this patient.: Yes I have fully participated in the care of the patient.: Yes I have reviewed all pertinent clinical information, including history, physical exam and plan: Yes Notes (Text): 02/13/18 20:49 Patient seen and examined at bed. vitals, labs and orders reviewed. Cardiology recommendations noted. Agree with the plan of care as documented by the resident.
--- NOTE | 2018-02-14 06:28 | CP.PCM.PN ---
Subjective - Date & Time of Evaluation Date of Evaluation: 02/14/18 Time of Evaluation: 06:27 - Subjective Subjective: Mr. Armenta was seen and examined at the bedside in ICU. He is awake, oriented x 3. He opens his eyes spontaneously denies any headache, dizziness, lightheadedness.He is able to participate in a pleasant conversation, follows commands with his upper extremities stronger than the lower, but much improved in comparison from previous examination. According to the , physical therapies did move him from bed to chair and noticed severe lower extremities weakness. Family is agreeable for acute rehab as part of discharge planning. There was no untoward events overnight. Objective - Vital Signs/Intake and Output Vital Signs (last 24 hours): Temp Pulse Resp BP Pulse Ox 98.9 F 72 20 148/66 93 L 02/14/18 00:01 02/14/18 02:00 02/14/18 00:01 02/14/18 00:01 02/14/18 00:01 Intake and Output: 02/13/18 02/14/18 18:59 06:59 Intake Total 120 Output Total 175 Balance -55 - Medications Medications: Current Medications Acetaminophen (Tylenol 325mg Tab) 650 mg PO Q6H PRN PRN Reason: Fever >100.4 F Last Admin: 02/09/18 10:36 Dose: 650 mg Acetaminophen (Tylenol 325 Mg Supp) 325 mg RC Q6H PRN PRN Reason: Fever >100.4 F Albuterol/Ipratropium (Duoneb 3 Mg/0.5 Mg (3 Ml) Ud) 3 ml IH [id number] PRN PRN Reason: Shortness of Breath Last Admin: 02/11/18 10:29 Dose: 3 ml Artificial Tears (Artificial Tears) 0 ml OU Q8 PRN PRN Reason: Dry eyes Last Admin: 02/07/18 08:40 Dose: 2 drop Aspirin (Aspirin Chewable) 81 mg PO DAILY [facility] Last Admin: 02/13/18 09:56 Dose: 81 mg Atorvastatin Calcium (Lipitor) 40 mg PO DIN [facility] Last Admin: 02/13/18 17:51 Dose: 40 mg Carvedilol (Coreg) 25 mg PO BID [facility] Last Admin: 02/13/18 17:51 Dose: 25 mg Furosemide (Lasix) 40 mg PO DAILY [facility] Last Admin: 02/13/18 09:56 Dose: 40 mg Heparin Sodium (Porcine) (Heparin) 5,000 units SC Q8 [facility] PRN Reason: Protocol Last Admin: 02/14/18 05:57 Dose: 5,000 units Levetiracetam 1,500 mg/ Sodium (Chloride) 115 mls @ 460 mls/hr IV Q12 [facility] Last Admin: 02/13/18 22:15 Dose: 460 mls/hr Valproate Sodium 1,000 mg/ (Sodium Chloride) 110 mls @ 100 mls/hr IVPB Q12 [facility] Last Admin: 02/13/18 22:14 Dose: 100 mls/hr Insulin Human Regular (Humulin R Med) 0 units SC ACHS [facility] PRN Reason: Protocol Last Admin: 02/13/18 22:14 Dose: Not Given Lorazepam (Ativan) 1 mg IVP Q6H PRN; Protocol PRN Reason: Seizure activity Last Admin: 02/06/18 14:28 Dose: 1 mg Losartan Potassium (Cozaar) 100 mg PO DAILY [facility] Last Admin: 02/13/18 09:54 Dose: 100 mg Ondansetron HCl (Zofran Inj) 4 mg IVP Q6H PRN PRN Reason: Nausea/Vomiting Last Admin: 02/11/18 09:24 Dose: 4 mg Pantoprazole Sodium (Protonix Ec Tab) 40 mg PO Q12 [facility] Last Admin: 02/13/18 22:18 Dose: 40 mg Phenol/Menthol (Phenaseptic 1.4% Throat [place]) 1 ml MT Q2H PRN PRN Reason: Sore Throat Polyethylene Glycol (Miralax) 17 gm PO BID [facility] Last Admin: 02/13/18 17:52 Dose: 17 gm Spironolactone (Aldactone) 25 mg PO DAILY [facility] Last Admin: 02/13/18 09:56 Dose: 25 mg - Labs Labs: 02/13/18 06:00 02/13/18 06:00 PT 15.0 SECONDS (9.4-12.5) H 02/13/18 06:00 INR 1.30 (0.93-1.08) H 02/13/18 06:00 APTT 28.3 Seconds (25.1-36.5) 02/13/18 06:00 - Constitutional Appears: Well, No Acute Distress - Head Exam Head Exam: NORMAL INSPECTION - Eye Exam Pupil Exam: PERRL - Neurological Exam Neurological Exam: Alert, Awake, Oriented x3 Neuro motor strength exam: Left Upper Extremity: 4, Right Upper Extremity: 4, Left Lower Extremity: 3, Right Lower Extremity: 3 Additional comments: neurological improved from previous examination. Assessment and Plan (1) Anoxic brain injury Assessment & Plan: Case discussed with Dr. Pacheco, continue all current medical, physical, occupational, and speech therapies. pending kera level. Recommend to change AED meds from IV to PO, normotension, keep head of the bed elevated at least 30 degrees, treat any underlying electrolyte abnormalities, and acute rehab for possible discharge planning. Status: Acute
[2018-02-14 07:39] LABS: BASO # 0.02 K/mm3 (0.0-2.0); BASO % 0.3 % (0.0-3.0); EOS # 0.2 (0.0-0.7); GRAN # 3.04 (1.4-6.5); GRAN % 50.2 % (50.0-68.0); HEMOGLOBIN 10.9 g/dL (14.0-18.0); LYMPH % 32.8 % (22.0-35.0); MEAN CELL VOLUME 87.9 fl (80.0-105.0); MEAN CORPUSCULAR HEMOGLOBIN 29.3 pg (25.0-35.0); MEAN CORPUSCULAR HGB CONC 33.3 g/dl (31.0-37.0); MONO # 0.8 (0.1-0.6); MONO % 13.7 % (1.0-6.0); RBC 3.72 10^6/uL (3.5-6.1); RED CELL DISTRIBUTION WIDTH 13.8 % (11.5-14.5); WHITE BLOOD COUNT 6.1 10^3/ul (4.5-11.0)
[2018-02-14 07:42] LABS: ALB/GLOB RATIO 1.1 (1.1-1.8); ALBUMIN 3.5 g/dL (3.0-4.8); ALT/SGPT 46 U/L (7-56); AST/SGOT 38 U/L (17-59); BLOOD UREA NITROGEN 16 mg/dL (7-21); CALCIUM 8.7 mg/dL (8.4-10.5); GFR AFRICAN-AMERICAN > 60; GFR NON-AFRICAN AMERICAN > 60
[2018-02-14] MEDS: Insulin Reg-MEDIUM-Coverage SC SCH ×4 (07:54→22:11)
--- NOTE | 2018-02-14 09:07 | PN ---
DATE: 02/14/2018 SUBJECTIVE: The patient is seen lying in bed on telemetry. He is currently comfortable. He has had no chest pain. With assistance of physical therapy yesterday, he was gotten out of bed to the chair, but he remains fairly weak. CURRENT MEDICATIONS: Include aspirin, Plavix, spironolactone 25 mg daily, carvedilol 25 mg b.i.d., losartan 100 mg daily, DuoNeb inhaler, subcutaneous heparin, Keppra, Lasix 40 mg daily, Lipitor 40 mg daily, Protonix 40 mg b.i.d. PHYSICAL EXAMINATION: GENERAL: He is a middle-aged man, who appears comfortable at present time. VITAL SIGNS: His blood pressure is 166/74 with pulse of 64 and sinus, respirations 14. He is afebrile. HEENT: No JVD. CHEST: Few scattered rhonchi. HEART: Soft tones noted with no pathological murmurs or gallops noted. ABDOMEN: Soft, nontender with normoactive bowel sounds. EXTREMITIES: No edema. DIAGNOSTIC DATA: Blood work pending on the morning. IMPRESSION: 1. Recent out of hospital cardiac arrest, clinically improved. 2. Severe left ventricular dysfunction. 3. Coronary artery disease, status post prior bypass surgery. 4. History of tobacco abuse. 5. Hypertension, suboptimal control. 6. Generalized weakness. RECOMMENDATIONS: Cardiac catheterization will be planned for tomorrow afternoon to assess his coronary anatomy and status of his bypass grafts. Further plans will be based on those results. The patient will be switched to Diovan for better blood pressure control. The rest of the medications will continue unchanged. Further plans may be based on results of his catheterization. We will continue to follow as needed. Bimal Pina MD
[2018-02-14] MEDS: Pantoprazole 40 mg EC Tab PO SCH ×2 (10:48→22:16)
[2018-02-14] MEDS: POLYETHYLENE GLYCOL 3350 17 GM/Dose PACKET PO SCH ×2 (10:48→17:33)
[2018-02-14] MEDS: Divalproex 125 mg EC Sprinkle Cap PO SCH ×2 (10:49→22:16)
[2018-02-14] MEDS ORDERED: Potassium Chloride 20 mEq ER Tab PO ONE (12:40)
--- NOTE | 2018-02-14 12:42 | CP.PCM.PN ---
<Shiva Burt - Last Filed: 02/14/18 12:50> Subjective - Date & Time of Evaluation Date of Evaluation: 02/14/18 Time of Evaluation: 07:15 - Subjective Subjective: Patient seen and examined at bedside in no acute distress. States he is aware he needs physical therapy to regain strength. Denies chest pain, palpitations, shortness of breath, headache, cough, diarrhea, fevers, chills. Objective - Vital Signs/Intake and Output Vital Signs (last 24 hours): Temp Pulse Resp BP Pulse Ox 98.4 F 67 20 178/84 H 94 L 02/14/18 06:00 02/14/18 10:52 02/14/18 06:00 02/14/18 10:52 02/14/18 06:00 Intake and Output: 02/14/18 02/14/18 06:59 18:59 Intake Total 320 300 Output Total 175 Balance 145 300 - Medications Medications: Current Medications Acetaminophen (Tylenol 325mg Tab) 650 mg PO Q6H PRN PRN Reason: Fever >100.4 F Last Admin: 02/09/18 10:36 Dose: 650 mg Acetaminophen (Tylenol 325 Mg Supp) 325 mg RC Q6H PRN PRN Reason: Fever >100.4 F Albuterol/Ipratropium (Duoneb 3 Mg/0.5 Mg (3 Ml) Ud) 3 ml IH [id number] PRN PRN Reason: Shortness of Breath Last Admin: 02/11/18 10:29 Dose: 3 ml Artificial Tears (Artificial Tears) 0 ml OU Q8 PRN PRN Reason: Dry eyes Last Admin: 02/07/18 08:40 Dose: 2 drop Aspirin (Aspirin Chewable) 81 mg PO DAILY [facility] Last Admin: 02/14/18 10:49 Dose: 81 mg Atorvastatin Calcium (Lipitor) 40 mg PO DIN [facility] Last Admin: 02/13/18 17:51 Dose: 40 mg Carvedilol (Coreg) 25 mg PO BID [facility] Last Admin: 02/14/18 10:52 Dose: 25 mg Divalproex Sodium (Depakote Sprinkles) 1,000 mg PO Q12 [facility] PRN Reason: Protocol Last Admin: 02/14/18 10:49 Dose: 1,000 mg Furosemide (Lasix) 40 mg PO DAILY [facility] Last Admin: 02/14/18 10:52 Dose: 40 mg Heparin Sodium (Porcine) (Heparin) 5,000 units SC Q8 [facility] PRN Reason: Protocol Stop: 02/15/18 10:00 Last Admin: 02/14/18 05:57 Dose: 5,000 units Hydralazine HCl (Apresoline) 10 mg PO TID [facility] Last Admin: 02/14/18 10:52 Dose: 10 mg Insulin Human Regular (Humulin R Med) 0 units SC ACHS [facility] PRN Reason: Protocol Last Admin: 02/14/18 11:49 Dose: Not Given Levetiracetam (Keppra) 1,500 mg PO Q12 [facility] Last Admin: 02/14/18 10:48 Dose: 1,500 mg Lorazepam (Ativan) 1 mg IVP Q6H PRN; Protocol PRN Reason: Seizure activity Last Admin: 02/06/18 14:28 Dose: 1 mg Ondansetron HCl (Zofran Inj) 4 mg IVP Q6H PRN PRN Reason: Nausea/Vomiting Last Admin: 02/11/18 09:24 Dose: 4 mg Pantoprazole Sodium (Protonix Ec Tab) 40 mg PO Q12 [facility] Last Admin: 02/14/18 10:48 Dose: 40 mg Phenol/Menthol (Phenaseptic 1.4% Throat [place]) 1 ml MT Q2H PRN PRN Reason: Sore Throat Polyethylene Glycol (Miralax) 17 gm PO BID [facility] Last Admin: 02/14/18 10:48 Dose: 17 gm Spironolactone (Aldactone) 25 mg PO DAILY [facility] Last Admin: 02/14/18 10:49 Dose: 25 mg Valsartan (Diovan) 320 mg PO DAILY [facility] Last Admin: 02/14/18 10:48 Dose: 320 mg - Labs Labs: 02/14/18 07:00 02/14/18 07:00 PT 15.0 SECONDS (9.4-12.5) H 02/13/18 06:00 INR 1.30 (0.93-1.08) H 02/13/18 06:00 APTT 28.3 Seconds (25.1-36.5) 02/13/18 06:00 - Head Exam Head Exam: ATRAUMATIC, NORMAL INSPECTION, NORMOCEPHALIC - Eye Exam Eye Exam: EOMI, Normal appearance - ENT Exam ENT Exam: Mucous Membranes Moist - Respiratory Exam Respiratory Exam: Clear to Ausculation Bilateral, NORMAL BREATHING PATTERN - Cardiovascular Exam Cardiovascular Exam: REGULAR RHYTHM, +S1, +S2 - GI/Abdominal Exam GI & Abdominal Exam: Soft, Normal Bowel Sounds - Extremities Exam Extremities Exam: absent: Calf Tenderness, Joint Swelling, Tenderness - Back Exam Back Exam: NORMAL INSPECTION - Neurological Exam Neurological Exam: Alert, Awake, Oriented x3 - Psychiatric Exam Psychiatric exam: Normal Affect, Normal Mood - Skin Skin Exam: Warm. absent: Normal Color (brown discoloration of lower extremities b/l most likely due to venous stasis) Assessment and Plan - Assessment and Plan (Free Text) Assessment: 57 year old male with history of CAD s/p CABG and 4 stents, hypertension, thyroid disease, and tobacco abuse presenting s/p cardiac arrest secondary to a cardiac event (possible posterior wall infarct) presenting with cardiogenic shock, code freeze completed, patient now currently extubated and doing remarkably well now transferred from ICU to telemetry. Plan: Cardiac Arrest - Etiology suspected to be 2/2 ventricular fibrillation - EKG reveals ST-T segments findings consistent with ischemia, possible inferior wall OR, intraventricular conduction delay evidenced by EKG and cardiac enzyme elevation - Echocardiogram reveals EF 20-25% with septum and apex severely hypokinetic. Left ventricular systolic function severely impaired - For now will continue with PO lasix, aldactone as well as losartan as per Cardiology - Cardiac cath tomorrow for further evaluation of CAD and bypass grafts - Cardiology states will follow up with patient upon discharge for possible further intervention including eventual ICD placement. Also advised patient on smoking sensation. 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 No interictal epileptiform discharges. No seizure. EEG is abnormal. Repeat EEG shows slow brain electrical activity, but no seizures - As per neuro: will continue with 1500mg IVPB Q 12 and additional depakote at 1000 mg IVPB q 12 Leukocytosis secvondary to aspiration pneumonia vs CAP - ID consulted and following - Patient now febrile, as per ID: will continue to monitor patient off antibiotics since patient is prone to nosocomial infections - Repeat blood cultures, urine cultures and sputum cultures are negative and procalcitonin decreased at 0.32 - Patient remains afebrile Hypertension - Carvedilol started considering patient's EF of 23% - Continue diovan, aldactone, and hydralazine Smoking Sensation - Patient educated on smoking cessation and is in agreement GI/DVT ppx - Protonix - Heparin SC and SCDs Dispo: field marketing manager referral for LTAC; work in progress. Patient's union states they are working to get necessary documents in order. Case and Plan discussed with attending Shiva Burt PGY1 <Hank Ramírez - Last Filed: 02/14/18 16:08> Objective - Vital Signs/Intake and Output Vital Signs (last 24 hours): Temp Pulse Resp BP Pulse Ox 98.1 F 65 19 141/68 94 L 02/14/18 12:00 02/14/18 14:24 02/14/18 12:00 02/14/18 14:24 02/14/18 06:00 Intake and Output: 02/14/18 02/14/18 06:59 18:59 Intake Total 320 300 Output Total 175 Balance 145 300 - Medications Medications: Current Medications Acetaminophen (Tylenol 325mg Tab) 650 mg PO Q6H PRN PRN Reason: Fever >100.4 F Last Admin: 02/09/18 10:36 Dose: 650 mg Acetaminophen (Tylenol 325 Mg Supp) 325 mg RC Q6H PRN PRN Reason: Fever >100.4 F Albuterol/Ipratropium (Duoneb 3 Mg/0.5 Mg (3 Ml) Ud) 3 ml IH [id number] PRN PRN Reason: Shortness of Breath Last Admin: 02/11/18 10:29 Dose: 3 ml Artificial Tears (Artificial Tears) 0 ml OU Q8 PRN PRN Reason: Dry eyes Last Admin: 02/07/18 08:40 Dose: 2 drop Aspirin (Aspirin Chewable) 81 mg PO DAILY [facility] Last Admin: 02/14/18 10:49 Dose: 81 mg Atorvastatin Calcium (Lipitor) 40 mg PO DIN [facility] Last Admin: 02/13/18 17:51 Dose: 40 mg Carvedilol (Coreg) 25 mg PO BID [facility] Last Admin: 02/14/18 10:52 Dose: 25 mg Divalproex Sodium (Depakote Sprinkles) 1,000 mg PO Q12 [facility] PRN Reason: Protocol Last Admin: 02/14/18 10:49 Dose: 1,000 mg Furosemide (Lasix) 40 mg PO DAILY [facility] Last Admin: 02/14/18 10:52 Dose: 40 mg Heparin Sodium (Porcine) (Heparin) 5,000 units SC Q8 [facility] PRN Reason: Protocol Stop: 02/15/18 10:00 Last Admin: 02/14/18 14:23 Dose: 5,000 units Hydralazine HCl (Apresoline) 10 mg PO TID [facility] Last Admin: 02/14/18 14:24 Dose: 10 mg Insulin Human Regular (Humulin R Med) 0 units SC ACHS [facility] PRN Reason: Protocol Last Admin: 02/14/18 11:49 Dose: Not Given Levetiracetam (Keppra) 1,500 mg PO Q12 [facility] Last Admin: 02/14/18 10:48 Dose: 1,500 mg Lorazepam (Ativan) 1 mg IVP Q6H PRN; Protocol PRN Reason: Seizure activity Last Admin: 02/06/18 14:28 Dose: 1 mg Ondansetron HCl (Zofran Inj) 4 mg IVP Q6H PRN PRN Reason: Nausea/Vomiting Last Admin: 02/11/18 09:24 Dose: 4 mg Pantoprazole Sodium (Protonix Ec Tab) 40 mg PO Q12 [facility] Last Admin: 02/14/18 10:48 Dose: 40 mg Phenol/Menthol (Phenaseptic 1.4% Throat [place]) 1 ml MT Q2H PRN PRN Reason: Sore Throat Polyethylene Glycol (Miralax) 17 gm PO BID [facility] Last Admin: 02/14/18 10:48 Dose: 17 gm Spironolactone (Aldactone) 25 mg PO DAILY [facility] Last Admin: 02/14/18 10:49 Dose: 25 mg Valsartan (Diovan) 320 mg PO DAILY [facility] Last Admin: 02/14/18 10:48 Dose: 320 mg - Labs Labs: 02/14/18 07:00 02/14/18 07:00 PT 15.0 SECONDS (9.4-12.5) H 02/13/18 06:00 INR 1.30 (0.93-1.08) H 02/13/18 06:00 APTT 28.3 Seconds (25.1-36.5) 02/13/18 06:00 Attending/Attestation - Attestation I have personally seen and examined this patient.: Yes I have fully participated in the care of the patient.: Yes I have reviewed all pertinent clinical information, including history, physical exam and plan: Yes Notes (Text): 02/14/18 16:02 Medical record note made by the resident after discussion with my direction and input after the patient was personally seen and examined by me. I have reviewed the chart and agree that the record accurately reflects by personal performance of the history, physical exam, data review, and medical decision-making, in the course for the patient. I have also personally directed the plan of care. 57 yrs male with PMH of CAD , SP CABG , HTN, hypothyroidism, had Vfib arrest in the field,was coded for about 10 mins and Intubated. Patient is sp hypothermic protocol and SP rewarming. Echo showed EF 25% on coreg/Diovan/ Spironolactone.,.Patient was extubated and now is in telemetry.Mental status is improved.Patient is on nasal canula.Patient is scheduled for cardiac catherization on Thursday . Patient is on Keppra for seizure. Management plan was discussed in detail with patient and family. Education was provided. 02/14/18 16:05
[2018-02-14] MEDS ORDERED: Potassium Chloride 20 mEq/15 ml LIQ UD PO ONE (13:52)
--- NOTE | 2018-02-14 14:34 | PN ---
DATE: 02/14/2018 SUBJECTIVE: The patient is in bed, in no acute distress, nontoxic. PHYSICAL EXAMINATION: VITAL SIGNS: Temperature is 98, blood pressure is 160/70, respiratory rate of 20, heart rate of 64. HEENT: Examination of HEENT is unremarkable. NECK: Supple. LUNGS: Have decreased breath sounds. HEART: Normal S1, S2. ABDOMEN: Soft, nontender. LABORATORY DATA: Laboratory examination reveals a white count of 6.1, hemoglobin of 10, platelets of 208. Chemistries reveals a BUN of 16, creatinine of 0.6 and procalcitonin is down to 0.32. Urinalysis is noted and serology is negative for hepatitis profile. Microbiology: Cultures are negative. Review of orders reveals the patient to be off of antibiotics. ASSESSMENT AND PLAN: A 57-year-old male who was seen earlier this morning with systemic inflammatory response syndrome, status post ventilator-dependent respiratory failure after a cardiac arrest, status post treatment for aspiration pneumonia. The patient with coronary artery disease and coronary artery bypass graft by history, hypertension, thyroid disease. Currently off of antibiotics, afebrile, normal white count, normal procalcitonin; however, he is at risk for developing nosocomial infections. We will follow closely with you. Michel Delatorre MD
[2018-02-15 06:23] LABS: BASO # 0.04 K/mm3 (0.0-2.0); BASO % 0.6 % (0.0-3.0); EOS # 0.2 (0.0-0.7); EOS % 2.5 % (1.5-5.0); GRAN # 3.03 (1.4-6.5); HEMOGLOBIN 11.3 g/dL (14.0-18.0); LYMPH # 2.7 (1.2-3.4); LYMPH % 40.2 % (22.0-35.0); MEAN CELL VOLUME 86.6 fl (80.0-105.0); MEAN CORPUSCULAR HEMOGLOBIN 29.1 pg (25.0-35.0); MEAN CORPUSCULAR HGB CONC 33.6 g/dl (31.0-37.0); MEAN PLATELET VOLUME 9.8 fl (7.0-11.0); MONO # 0.8 (0.1-0.6); MONO % 11.7 % (1.0-6.0); RBC 3.88 10^6/uL (3.5-6.1); RED CELL DISTRIBUTION WIDTH 13.8 % (11.5-14.5); WHITE BLOOD COUNT 6.7 10^3/ul (4.5-11.0)
[2018-02-15 07:01] LABS: ALB/GLOB RATIO 1.1 (1.1-1.8); ALBUMIN 3.5 g/dL (3.0-4.8); ALT/SGPT 47 U/L (7-56); AST/SGOT 45 U/L (17-59); BLOOD UREA NITROGEN 15 mg/dL (7-21); CALCIUM 8.7 mg/dL (8.4-10.5); GFR AFRICAN-AMERICAN > 60; GFR NON-AFRICAN AMERICAN > 60
[2018-02-15] MEDS: Insulin Reg-MEDIUM-Coverage SC SCH ×4 (07:56→23:28)
--- NOTE | 2018-02-15 07:56 | CP.PCM.PN ---
Subjective - Date & Time of Evaluation Date of Evaluation: 02/15/18 Time of Evaluation: 07:00 - Subjective Subjective: Stable on 2R. He feels weak. Not much walking or sitting in chair. Cath planned for this PM. His is at the bedside. V/S noted. RSR PE: lungs: few rhonchi Cor.: S1S2 Abd.: soft Ext. mild edema Neuro.: Awake, alert. I/O= 540/1201 recorded Labs noted: Na+ = 146, K+= 3.7 ECG: S. tachy., STTW changes CXR 02/12 : NAD CT head 02/11 noted. No acute findings Objective - Vital Signs/Intake and Output Vital Signs (last 24 hours): Temp Pulse Resp BP Pulse Ox 97.9 F 68 20 149/89 96 02/15/18 06:00 02/15/18 06:00 02/15/18 06:00 02/15/18 06:00 02/15/18 06:00 Intake and Output: 02/15/18 02/15/18 06:59 18:59 Intake Total 240 Output Total 1201 Balance -961 - Medications Medications: Current Medications Acetaminophen (Tylenol 325mg Tab) 650 mg PO Q6H PRN PRN Reason: Fever >100.4 F Last Admin: 02/09/18 10:36 Dose: 650 mg Acetaminophen (Tylenol 325 Mg Supp) 325 mg RC Q6H PRN PRN Reason: Fever >100.4 F Albuterol/Ipratropium (Duoneb 3 Mg/0.5 Mg (3 Ml) Ud) 3 ml IH [id number] PRN PRN Reason: Shortness of Breath Last Admin: 02/11/18 10:29 Dose: 3 ml Artificial Tears (Artificial Tears) 0 ml OU Q8 PRN PRN Reason: Dry eyes Last Admin: 02/07/18 08:40 Dose: 2 drop Aspirin (Aspirin Chewable) 81 mg PO DAILY [facility] Last Admin: 02/14/18 10:49 Dose: 81 mg Atorvastatin Calcium (Lipitor) 40 mg PO DIN [facility] Last Admin: 02/14/18 17:36 Dose: 40 mg Carvedilol (Coreg) 25 mg PO BID [facility] Last Admin: 02/14/18 17:33 Dose: 25 mg Divalproex Sodium (Depakote Sprinkles) 1,000 mg PO Q12 [facility] PRN Reason: Protocol Last Admin: 02/14/18 22:16 Dose: 1,000 mg Furosemide (Lasix) 40 mg PO DAILY [facility] Last Admin: 02/14/18 10:52 Dose: 40 mg Heparin Sodium (Porcine) (Heparin) 5,000 units SC Q8 [facility] PRN Reason: Protocol Stop: 02/15/18 10:00 Last Admin: 02/15/18 06:03 Dose: 5,000 units Hydralazine HCl (Apresoline) 10 mg PO TID [facility] Last Admin: 02/14/18 17:33 Dose: 10 mg Insulin Human Regular (Humulin R Med) 0 units SC ACHS [facility] PRN Reason: Protocol Last Admin: 02/14/18 22:11 Dose: Not Given Levetiracetam (Keppra) 1,500 mg PO Q12 [facility] Last Admin: 02/14/18 22:16 Dose: 1,500 mg Lorazepam (Ativan) 1 mg IVP Q6H PRN; Protocol PRN Reason: Seizure activity Last Admin: 02/06/18 14:28 Dose: 1 mg Ondansetron HCl (Zofran Inj) 4 mg IVP Q6H PRN PRN Reason: Nausea/Vomiting Last Admin: 02/11/18 09:24 Dose: 4 mg Pantoprazole Sodium (Protonix Ec Tab) 40 mg PO Q12 [facility] Last Admin: 02/14/18 22:16 Dose: 40 mg Phenol/Menthol (Phenaseptic 1.4% Throat [place]) 1 ml MT Q2H PRN PRN Reason: Sore Throat Polyethylene Glycol (Miralax) 17 gm PO BID [facility] Last Admin: 02/14/18 17:33 Dose: 17 gm Spironolactone (Aldactone) 25 mg PO DAILY [facility] Last Admin: 02/14/18 10:49 Dose: 25 mg Valsartan (Diovan) 320 mg PO DAILY [facility] Last Admin: 02/14/18 10:48 Dose: 320 mg - Labs Labs: 02/15/18 05:30 02/15/18 05:30 PT 15.0 SECONDS (9.4-12.5) H 02/13/18 06:00 INR 1.30 (0.93-1.08) H 02/13/18 06:00 APTT 28.3 Seconds (25.1-36.5) 02/13/18 06:00 Assessment and Plan - Assessment and Plan (Free Text) Assessment: Cardiac arrest at home Acute UT/CHF/S/P resuscitation in the field Anoxic encephalopathy, improving. Nl MS but diffusely weak. CAD/UT/Remote CABG/No regular cardiac f/u HBP Hypothyroidism Smoker Plan: Cardiac cath/possible PCI today. As per Neuro. OOB to chair as marixa./PT Will follow. EP/ICD evaluation to follow.
[2018-02-15] MEDS: Pantoprazole 40 mg EC Tab PO SCH ×2 (09:15→23:27)
[2018-02-15] MEDS: Divalproex 125 mg EC Sprinkle Cap PO SCH ×2 (09:19→23:27)
[2018-02-15] MEDS: POLYETHYLENE GLYCOL 3350 17 GM/Dose PACKET PO SCH ×2 (11:04→18:26)
--- NOTE | 2018-02-15 11:55 | CP.PCM.PN ---
Subjective - Date & Time of Evaluation Date of Evaluation: 02/15/18 Time of Evaluation: 11:55 - Subjective Subjective: Mr. Armenta was seen and examined at the bedside in ICU. He is awake, oriented x 3. He opens his eyes spontaneously denies any headache, dizziness, lightheadedness.He is able to participate in a pleasant conversation, follows commands with his upper extremities stronger than the lower, but much improved in comparison from previous examination. He is schedule for cardiac catheterization today. There was no untoward events overnight. Objective - Vital Signs/Intake and Output Vital Signs (last 24 hours): Temp Pulse Resp BP Pulse Ox 97.9 F 77 20 157/85 H 96 02/15/18 06:00 02/15/18 10:00 02/15/18 06:00 02/15/18 09:15 02/15/18 06:00 Intake and Output: 02/15/18 02/15/18 06:59 18:59 Intake Total 240 180 Output Total 1201 Balance -961 180 - Medications Medications: Current Medications Acetaminophen (Tylenol 325mg Tab) 650 mg PO Q6H PRN PRN Reason: Fever >100.4 F Last Admin: 02/09/18 10:36 Dose: 650 mg Acetaminophen (Tylenol 325 Mg Supp) 325 mg RC Q6H PRN PRN Reason: Fever >100.4 F Albuterol/Ipratropium (Duoneb 3 Mg/0.5 Mg (3 Ml) Ud) 3 ml IH [id number] PRN PRN Reason: Shortness of Breath Last Admin: 02/11/18 10:29 Dose: 3 ml Artificial Tears (Artificial Tears) 0 ml OU Q8 PRN PRN Reason: Dry eyes Last Admin: 02/07/18 08:40 Dose: 2 drop Aspirin (Aspirin Chewable) 81 mg PO DAILY [facility] Last Admin: 02/15/18 09:15 Dose: 81 mg Atorvastatin Calcium (Lipitor) 40 mg PO DIN [facility] Last Admin: 02/14/18 17:36 Dose: 40 mg Carvedilol (Coreg) 25 mg PO BID [facility] Last Admin: 02/15/18 09:14 Dose: 25 mg Divalproex Sodium (Depakote Sprinkles) 1,000 mg PO Q12 [facility] PRN Reason: Protocol Last Admin: 02/15/18 09:19 Dose: 1,000 mg Furosemide (Lasix) 40 mg PO DAILY [facility] Last Admin: 02/15/18 09:15 Dose: 40 mg Hydralazine HCl (Apresoline) 10 mg PO TID [facility] Last Admin: 02/15/18 09:15 Dose: 10 mg Insulin Human Regular (Humulin R Med) 0 units SC ACHS [facility] PRN Reason: Protocol Last Admin: 02/15/18 11:17 Dose: Not Given Levetiracetam (Keppra) 1,500 mg PO Q12 [facility] Last Admin: 02/15/18 09:15 Dose: 1,500 mg Lorazepam (Ativan) 1 mg IVP Q6H PRN; Protocol PRN Reason: Seizure activity Last Admin: 02/06/18 14:28 Dose: 1 mg Ondansetron HCl (Zofran Inj) 4 mg IVP Q6H PRN PRN Reason: Nausea/Vomiting Last Admin: 02/11/18 09:24 Dose: 4 mg Pantoprazole Sodium (Protonix Ec Tab) 40 mg PO Q12 [facility] Last Admin: 02/15/18 09:15 Dose: 40 mg Phenol/Menthol (Phenaseptic 1.4% Throat [place]) 1 ml MT Q2H PRN PRN Reason: Sore Throat Polyethylene Glycol (Miralax) 17 gm PO BID [facility] Last Admin: 02/15/18 11:04 Dose: Not Given Spironolactone (Aldactone) 25 mg PO DAILY [facility] Last Admin: 02/15/18 09:15 Dose: 25 mg Valsartan (Diovan) 320 mg PO DAILY [facility] Last Admin: 02/15/18 09:15 Dose: 320 mg - Labs Labs: 02/15/18 05:30 02/15/18 05:30 PT 15.0 SECONDS (9.4-12.5) H 02/13/18 06:00 INR 1.30 (0.93-1.08) H 02/13/18 06:00 APTT 28.3 Seconds (25.1-36.5) 02/13/18 06:00 - Constitutional Appears: No Acute Distress - Head Exam Head Exam: NORMAL INSPECTION - Neurological Exam Neurological Exam: Alert, Awake, Oriented x3 Neuro motor strength exam: Left Upper Extremity: 4, Right Upper Extremity: 4, Left Lower Extremity: 3, Right Lower Extremity: 3 Additional comments: neurological unchanged from previous examination. Assessment and Plan (1) Seizures Assessment & Plan: Case discussed with Dr. Whitlock, continue all current medical, physical, occupational, and speech therapies. pending keppra level. Recommend to change AED meds from IV to PO, normotension, keep head of the bed elevated at least 30 degrees, treat any underlying electrolyte abnormalities, and acute rehab for possible discharge planning pending primary and cardiology clearance. Status: Acute
--- NOTE | 2018-02-15 13:35 | CP.PCM.PN ---
<Shiva Burt - Last Filed: 02/15/18 13:43> Subjective - Date & Time of Evaluation Date of Evaluation: 02/15/18 Time of Evaluation: 09:00 - Subjective Subjective: Patient seen and examined at bedside. States he wants physical therapy so he can regain strength. Is aware and agreement with plan for cardiac cath/ possible PCI today. Denies shortness of breath, chest pain, nausea, vomiting, diarrhea, headache,fevers, chills. Objective - Vital Signs/Intake and Output Vital Signs (last 24 hours): Temp Pulse Resp BP Pulse Ox 98.4 F 66 19 137/78 96 02/15/18 12:00 02/15/18 12:00 02/15/18 12:00 02/15/18 12:00 02/15/18 06:00 Intake and Output: 02/15/18 02/15/18 06:59 18:59 Intake Total 240 180 Output Total 1201 Balance -961 180 - Medications Medications: Current Medications Acetaminophen (Tylenol 325mg Tab) 650 mg PO Q6H PRN PRN Reason: Fever >100.4 F Last Admin: 02/09/18 10:36 Dose: 650 mg Acetaminophen (Tylenol 325 Mg Supp) 325 mg RC Q6H PRN PRN Reason: Fever >100.4 F Albuterol/Ipratropium (Duoneb 3 Mg/0.5 Mg (3 Ml) Ud) 3 ml IH [id number] PRN PRN Reason: Shortness of Breath Last Admin: 02/11/18 10:29 Dose: 3 ml Artificial Tears (Artificial Tears) 0 ml OU Q8 PRN PRN Reason: Dry eyes Last Admin: 02/07/18 08:40 Dose: 2 drop Aspirin (Aspirin Chewable) 81 mg PO DAILY [facility] Last Admin: 02/15/18 09:15 Dose: 81 mg Atorvastatin Calcium (Lipitor) 40 mg PO DIN [facility] Last Admin: 02/14/18 17:36 Dose: 40 mg Carvedilol (Coreg) 25 mg PO BID [facility] Last Admin: 02/15/18 09:14 Dose: 25 mg Divalproex Sodium (Depakote Sprinkles) 1,000 mg PO Q12 [facility] PRN Reason: Protocol Last Admin: 02/15/18 09:19 Dose: 1,000 mg Furosemide (Lasix) 40 mg PO DAILY [facility] Last Admin: 02/15/18 09:15 Dose: 40 mg Hydralazine HCl (Apresoline) 10 mg PO TID [facility] Last Admin: 02/15/18 09:15 Dose: 10 mg Insulin Human Regular (Humulin R Med) 0 units SC ACHS [facility] PRN Reason: Protocol Last Admin: 02/15/18 11:17 Dose: Not Given Levetiracetam (Keppra) 1,500 mg PO Q12 [facility] Last Admin: 02/15/18 09:15 Dose: 1,500 mg Lorazepam (Ativan) 1 mg IVP Q6H PRN; Protocol PRN Reason: Seizure activity Last Admin: 02/06/18 14:28 Dose: 1 mg Ondansetron HCl (Zofran Inj) 4 mg IVP Q6H PRN PRN Reason: Nausea/Vomiting Last Admin: 02/11/18 09:24 Dose: 4 mg Pantoprazole Sodium (Protonix Ec Tab) 40 mg PO Q12 [facility] Last Admin: 02/15/18 09:15 Dose: 40 mg Phenol/Menthol (Phenaseptic 1.4% Throat [place]) 1 ml MT Q2H PRN PRN Reason: Sore Throat Polyethylene Glycol (Miralax) 17 gm PO BID [facility] Last Admin: 02/15/18 11:04 Dose: Not Given Spironolactone (Aldactone) 25 mg PO DAILY [facility] Last Admin: 02/15/18 09:15 Dose: 25 mg Valsartan (Diovan) 320 mg PO DAILY [facility] Last Admin: 02/15/18 09:15 Dose: 320 mg - Labs Labs: 02/15/18 05:30 02/15/18 05:30 PT 15.0 SECONDS (9.4-12.5) H 02/13/18 06:00 INR 1.30 (0.93-1.08) H 02/13/18 06:00 APTT 28.3 Seconds (25.1-36.5) 02/13/18 06:00 - Head Exam Head Exam: ATRAUMATIC, NORMAL INSPECTION, NORMOCEPHALIC - Eye Exam Eye Exam: EOMI, Normal appearance - ENT Exam ENT Exam: Mucous Membranes Moist, Normal Exam - Neck Exam Neck Exam: Normal Inspection - Respiratory Exam Respiratory Exam: Clear to Ausculation Bilateral, Rales (bl lower lobes), NORMAL BREATHING PATTERN. absent: Rhonchi, Wheezes - Cardiovascular Exam Cardiovascular Exam: REGULAR RHYTHM, +S1, +S2 - GI/Abdominal Exam GI & Abdominal Exam: Soft, Normal Bowel Sounds - Extremities Exam Extremities Exam: Normal Inspection - Back Exam Back Exam: NORMAL INSPECTION - Neurological Exam Neurological Exam: Alert, Awake, Oriented x3 - Psychiatric Exam Psychiatric exam: Normal Affect, Normal Mood - Skin Skin Exam: Normal Color, Warm Assessment and Plan - Assessment and Plan (Free Text) Assessment: 57 year old male with history of CAD s/p CABG and 4 stents, hypertension, thyroid disease, and tobacco abuse presenting s/p cardiac arrest secondary to a cardiac event (possible posterior wall infarct) presenting with cardiogenic shock, code freeze completed, patient now currently extubated and doing remarkably well now transferred from ICU to telemetry. Plan: Cardiac Arrest - Etiology suspected to be 2/2 ventricular fibrillation - EKG reveals ST-T segments findings consistent with ischemia, possible inferior wall NE, intraventricular conduction delay evidenced by EKG and cardiac enzyme elevation - Echocardiogram reveals EF 20-25% with septum and apex severely hypokinetic. Left ventricular systolic function severely impaired - For now will continue with PO lasix, aldactone as well as losartan as per Cardiology - Cardiac cath and possible PCI for further evaluation of CAD and bypass grafts - Cardiology states will follow up with patient upon discharge for possible further intervention including eventual ICD placement. Also advised patient on smoking sensation. - Continue finely chopped with thin liquid diet as recommended by speech pathologist. Will have speech pathologist re-evaluate for possible diet change. 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 No interictal epileptiform discharges. No seizure. EEG is abnormal. Repeat EEG shows slow brain electrical activity, but no seizures - As per neuro: will continue with 1500mg IVPB Q 12 and additional depakote at 1000 mg IVPB q 12 Leukocytosis secvondary to aspiration pneumonia vs CAP - ID consulted and following - Patient now febrile, as per ID: will continue to monitor patient off antibiotics since patient is prone to nosocomial infections - Repeat blood cultures, urine cultures and sputum cultures are negative and procalcitonin decreased at 0.32 - Patient remains afebrile Hypertension - Carvedilol started considering patient's EF of 23% - Continue diovan, aldactone, and hydralazine; adjust dosage of hydralaxine accordingly Smoking Sensation - Patient educated on smoking cessation and is in agreement GI/DVT ppx - Protonix - Heparin SC and SCDs Dispo: assistant spa manager referral for LTAC; work in progress. Patient's union states they are working to get necessary documents in order. Case and Plan discussed with attending Shiva Burt PGY1 <Hank Ramírez - Last Filed: 02/17/18 12:18> Objective - Vital Signs/Intake and Output Vital Signs (last 24 hours): Temp Pulse Resp BP Pulse Ox 98 F 78 18 142/77 97 02/17/18 06:00 02/17/18 09:30 02/17/18 06:00 02/17/18 09:02 02/17/18 06:00 Intake and Output: 02/17/18 02/17/18 06:59 18:59 Intake Total 480 Output Total 800 Balance -320 - Labs Labs: 02/16/18 05:45 02/16/18 05:45 PT 15.0 SECONDS (9.4-12.5) H 02/13/18 06:00 INR 1.30 (0.93-1.08) H 02/13/18 06:00 APTT 28.3 Seconds (25.1-36.5) 02/13/18 06:00 Attending/Attestation - Attestation I have personally seen and examined this patient.: Yes I have fully participated in the care of the patient.: Yes I have reviewed all pertinent clinical information, including history, physical exam and plan: Yes Notes (Text): 02/17/18 12:17 Medical record note made by the resident after discussion with my direction and input after the patient was personally seen and examined by me. I have reviewed the chart and agree that the record accurately reflects by personal performance of the history, physical exam, data review, and medical decision-making, in the course for the patient. I have also personally directed the plan of care. 57 yrs male with PMH of CAD , SP CABG , HTN, hypothyroidism, had Vfib arrest in the field,was coded for about 10 mins and Intubated. Patient is sp hypothermic protocol and SP rewarming. Echo showed EF 25% on coreg/Diovan/ Spironolactone.,.Patient was extubated and now is in telemetry.Mental status is improved.Patient is on nasal canula.Patient is scheduled for cardiac catherization today.Patient is euvolemic, we will continue current medication for ischemic cardiomyopathy. Patient is on Keppra for seizure. Management plan was discussed in detail with patient and family. Education was provided.
--- NOTE | 2018-02-15 15:33 | CP.PCM.PN ---
Subjective - Date & Time of Evaluation Date of Evaluation: 02/15/18 Time of Evaluation: 13:15 - Subjective Subjective: Patient feels better, no fevers, not in distress, no nausea, no chest pain. Objective - Vital Signs/Intake and Output Vital Signs (last 24 hours): Temp Pulse Resp BP Pulse Ox 97.9 F 68 20 149/89 96 02/15/18 06:00 02/15/18 06:00 02/15/18 06:00 02/15/18 06:00 02/15/18 06:00 Intake and Output: 02/15/18 02/15/18 06:59 18:59 Intake Total 240 Output Total 1201 Balance -961 - Medications Medications: Current Medications Acetaminophen (Tylenol 325mg Tab) 650 mg PO Q6H PRN PRN Reason: Fever >100.4 F Last Admin: 02/09/18 10:36 Dose: 650 mg Acetaminophen (Tylenol 325 Mg Supp) 325 mg RC Q6H PRN PRN Reason: Fever >100.4 F Albuterol/Ipratropium (Duoneb 3 Mg/0.5 Mg (3 Ml) Ud) 3 ml IH [id number] PRN PRN Reason: Shortness of Breath Last Admin: 02/11/18 10:29 Dose: 3 ml Artificial Tears (Artificial Tears) 0 ml OU Q8 PRN PRN Reason: Dry eyes Last Admin: 02/07/18 08:40 Dose: 2 drop Aspirin (Aspirin Chewable) 81 mg PO DAILY [facility] Last Admin: 02/14/18 10:49 Dose: 81 mg Atorvastatin Calcium (Lipitor) 40 mg PO DIN [facility] Last Admin: 02/14/18 17:36 Dose: 40 mg Carvedilol (Coreg) 25 mg PO BID [facility] Last Admin: 02/14/18 17:33 Dose: 25 mg Divalproex Sodium (Depakote Sprinkles) 1,000 mg PO Q12 [facility] PRN Reason: Protocol Last Admin: 02/14/18 22:16 Dose: 1,000 mg Furosemide (Lasix) 40 mg PO DAILY [facility] Last Admin: 02/14/18 10:52 Dose: 40 mg Heparin Sodium (Porcine) (Heparin) 5,000 units SC Q8 [facility] PRN Reason: Protocol Stop: 02/15/18 10:00 Last Admin: 06/18/18 06:03 Dose: 5,000 units Hydralazine HCl (Apresoline) 10 mg PO TID [facility] Last Admin: 02/14/18 17:33 Dose: 10 mg Insulin Human Regular (Humulin R Med) 0 units SC ACHS [facility] PRN Reason: Protocol Last Admin: 02/14/18 22:11 Dose: Not Given Levetiracetam (Keppra) 1,500 mg PO Q12 [facility] Last Admin: 02/14/18 22:16 Dose: 1,500 mg Lorazepam (Ativan) 1 mg IVP Q6H PRN; Protocol PRN Reason: Seizure activity Last Admin: 02/06/18 14:28 Dose: 1 mg Ondansetron HCl (Zofran Inj) 4 mg IVP Q6H PRN PRN Reason: Nausea/Vomiting Last Admin: 02/11/18 09:24 Dose: 4 mg Pantoprazole Sodium (Protonix Ec Tab) 40 mg PO Q12 [facility] Last Admin: 02/14/18 22:16 Dose: 40 mg Phenol/Menthol (Phenaseptic 1.4% Throat [place]) 1 ml MT Q2H PRN PRN Reason: Sore Throat Polyethylene Glycol (Miralax) 17 gm PO BID [facility] Last Admin: 02/14/18 17:33 Dose: 17 gm Spironolactone (Aldactone) 25 mg PO DAILY [facility] Last Admin: 02/14/18 10:49 Dose: 25 mg Valsartan (Diovan) 320 mg PO DAILY [facility] Last Admin: 02/14/18 10:48 Dose: 320 mg - Labs Labs: 02/15/18 05:30 02/15/18 05:30 PT 15.0 SECONDS (9.4-12.5) H 02/13/18 06:00 INR 1.30 (0.93-1.08) H 02/13/18 06:00 APTT 28.3 Seconds (25.1-36.5) 02/13/18 06:00 - Constitutional Appears: Non-toxic, Chronically Ill - Head Exam Head Exam: NORMAL INSPECTION - Neck Exam Neck Exam: absent: Meningismus - Respiratory Exam Respiratory Exam: Decreased Breath Sounds - Cardiovascular Exam Cardiovascular Exam: +S1, +S2 - GI/Abdominal Exam GI & Abdominal Exam: Soft. absent: Tenderness Assessment and Plan - Assessment and Plan (Free Text) Plan: Assessment S/P Systemic Inflammatory response syndrome, and S/P ventilator-dependent respiratory failure after cardiac arrest probably from acute coronary syndrome, S/P treatment fort aspiration pneumonia CAD S/P CABG HTN thyroid disease significant smoking history Plan will continue to monitor the patient off antibiotics since he is at risk for hospital-acquired infections for cardiac cath today
[2018-02-15] MEDS ORDERED: Lidocaine 2% Inj (20ml) ONE (15:34)
[2018-02-15] MEDS ORDERED: Iodixanol 320 MG/ML 100 ML BOTTLE IV ONE (15:35)
[2018-02-15] MEDS ORDERED: Iodixanol 320 MG/ML 200 ML BOTTLE IV ONE (15:35)
[2018-02-15] MEDS ORDERED: Iohexol 350mgl/ml 50 ML ONE (15:35)
[2018-02-15] MEDS ORDERED: Midazolam 2 MG/2 ML VIAL ONE ×2 (16:01→16:27)
[2018-02-15] MEDS ORDERED: Protamine 50mg/5mL Inj IV ONE (17:08)
[2018-02-15] MEDS ORDERED: Sodium Chloride 0.45% 1,000 ML IV SCH (17:30)
[2018-02-16 06:25] LABS: BASO # 0.02 K/mm3 (0.0-2.0); BASO % 0.3 % (0.0-3.0); EOS # 0.1 (0.0-0.7); EOS % 1.9 % (1.5-5.0); GRAN # 3.86 (1.4-6.5); GRAN % 52.5 % (50.0-68.0); HEMOGLOBIN 12.1 g/dL (14.0-18.0); LYMPH # 2.5 (1.2-3.4); LYMPH % 33.6 % (22.0-35.0); MEAN CELL VOLUME 85.4 fl (80.0-105.0); MEAN CORPUSCULAR HEMOGLOBIN 28.9 pg (25.0-35.0); MEAN CORPUSCULAR HGB CONC 33.8 g/dl (31.0-37.0); MEAN PLATELET VOLUME 9.4 fl (7.0-11.0); MONO # 0.9 (0.1-0.6); MONO % 11.7 % (1.0-6.0); RBC 4.19 10^6/uL (3.5-6.1); RED CELL DISTRIBUTION WIDTH 13.7 % (11.5-14.5); WHITE BLOOD COUNT 7.4 10^3/ul (4.5-11.0)
[2018-02-16 06:44] LABS: BLOOD UREA NITROGEN 13 mg/dL (7-21); CALCIUM 8.9 mg/dL (8.4-10.5); GFR AFRICAN-AMERICAN > 60; GFR NON-AFRICAN AMERICAN > 60
--- NOTE | 2018-02-16 07:38 | CARDCATH ---
PROCEDURE DATE: 02/15/2018 CARDIAC CATHETERIZATION REPORT PROCEDURES: 1. Selective left and right coronary angiography. 2. Saphenous venography x2. 3. Left internal mammary arteriography. 4. Left ventriculography. 5. Percutaneous coronary intervention of left main with drug-eluting stent. 6. Right femoral arteriography. 7. Angio-Seal deployment. HISTORY: This is a 57-year-old man with known coronary artery disease, status post prior bypass surgery, who suffered an [id number] cardiac arrest. He had a full neurological recovery and cardiac catheterization was advised. INDICATION: 1. Coronary artery disease, status post bypass surgery. 2. Recent [id number] arrest. FINDINGS: HEMODYNAMICS: Aortic pressure was 120/70, with left ventricular pressure of 120/16. CORONARY ANATOMY: 1. The left main stem was calcified and had an 80% distal stenosis. 2. This supplied a moderate size ramus branch, which had a 50% stenosis proximally. There was some filling of the circumflex proper as well, from the left main. 3. The left anterior descending artery was occluded proximally. 4. The left circumflex artery had a 50% proximal stenosis. 5. A small first obtuse marginal branch appeared to have evidence of competitive flow and the second obtuse marginal branch appeared to be occluded at its ostium. 6. The right coronary artery was dominant and occluded in its midportion. The vessel was heavily calcified as well. 7. The saphenous vein graft to the right coronary artery was patent with good distal run-off. This filled the PDA well. Mild disease was noted. 8. The saphenous vein graft to the obtuse marginal branch appeared to be a sequential graft supplying a small first obtuse marginal branch and followed by a large obtuse marginal branch. Each vessel filled well and the graft had no evidence of significant disease. 9. The left internal mammary artery to the LAD was widely patent with good distal runoff. The distal LAD was of moderate size and tapered before the apex. LEFT VENTRICULOGRAPHY: A hand injection was performed in the left ventricle in the CAST projection. This revealed evidence of moderately severe diffuse LV hypokinesis with an overall ejection fraction of 30%. There was no aortic valve gradient noted on catheter pullback. Mitral regurgitation was not assessed. CORONARY INTERVENTION: Given the above findings, attempted PCI of the left main supplying the ramus branch was then performed. A left Amplatz 0.75 guide catheter was utilized and the lesion is successfully crossed with a [place] wire. Following this, initial inflations were performed with a 3.0 x 12 mm noncompliant balloon. This was inflated to 12 atmospheres for 30 seconds. Following this, the balloon was removed, and a 3.5 x 12 mm Resolute Manuel drug-eluting stent was advanced into the left main and this was deployed to 14 atmospheres for 45 seconds. There was 0% residual stenosis following the intervention. The ramus branch filled aggressively and there was no loss of flow into the left circumflex either. A 4000 units of intravenous heparin had been administered, and ACT was 240 seconds during the procedure. RIGHT FEMORAL ARTERIOGRAPHY: A right femoral arteriogram was performed in the CAST projection. This revealed no evidence of significant disease and appropriate level of arterial puncture. An attempt was made to then close the puncture site with the use of Angio-Seal device. The Angio-Seal device malfunctioned and the foot pad did not deploy appropriately in the vessel, and upon withdrawal, the entire device was retrieved. Manual pressure was then applied to achieve adequate hemostasis. 40 mg of protamine was administered intravenously in order to reverse the heparin effect. Distal pulses were intact. Small hematoma was present. CONCLUSION: 1. 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 2. Patent left internal mammary artery to left anterior descending , saphenous vein graft to right coronary artery and saphenous vein graft to obtuse marginal branches. 3. Severe left ventricular systolic dysfunction. 4. Successful percutaneous coronary intervention of left main with drug-eluting stent as described above. RECOMMENDATIONS: Aspirin and Plavix therapy will be continued for at least 1 year. Standard therapy with beta-cristina therapy, statin and after load reduction therapy will be continued. The patient will be referred for an ICD implant given his recent cardiac arrest. Smoking abstinence will be strongly encouraged. Bimal Pina MD [facility]
--- NOTE | 2018-02-16 07:48 | CARD ---
APPROVED REPORT EKG Measurement Heart [id number] <Conclusion> Normal sinus rhythm Minimal voltage criteria for LVH, may be normal variant
[2018-02-16] MEDS: Insulin Reg-MEDIUM-Coverage SC SCH ×4 (07:50→21:54)
--- NOTE | 2018-02-16 07:52 | CP.PCM.PN ---
Subjective - Date & Time of Evaluation Date of Evaluation: 02/16/18 Time of Evaluation: 07:00 - Subjective Subjective: Stable on 2R s/p cath/PCI yesterday. He feels OK but weak. No CP or SOB. V/S noted. RSR. One episode bradycardia with straining last night. PE: lungs: few rhonchi Cor.: S1S2 Abd.: soft Ext. no edema Neuro.: Awake, alert. Can't stand up. I/O= 3000/1150 recorded Labs noted: K+= 3.6 ECG: RSR, IMI, STTW changes CXR 02/12 : NAD CT head 02/11 noted. No acute findings Cardiac cath report unavailable at the moment. Severe CAD, patent SVBG to RCA and OM and patent PADILLA to LAD. Severe LM stented to increase flow into C.A and prox LAD/branches. LV EF ~ 35% with inferior hypokinesis Objective - Vital Signs/Intake and Output Vital Signs (last 24 hours): Temp Pulse Resp BP Pulse Ox 98.8 F 80 20 161/71 H 98 02/16/18 01:00 02/16/18 02:00 02/16/18 01:00 02/16/18 01:00 02/16/18 01:00 Intake and Output: 02/16/18 02/16/18 06:59 18:59 Intake Total 120 Output Total 1150 Balance -1030 - Medications Medications: Current Medications Acetaminophen (Tylenol 325mg Tab) 650 mg PO Q6H PRN PRN Reason: Fever >100.4 F Last Admin: 02/09/18 10:36 Dose: 650 mg Acetaminophen (Tylenol 325 Mg Supp) 325 mg RC Q6H PRN PRN Reason: Fever >100.4 F Albuterol/Ipratropium (Duoneb 3 Mg/0.5 Mg (3 Ml) Ud) 3 ml IH [id number] PRN PRN Reason: Shortness of Breath Last Admin: 02/11/18 10:29 Dose: 3 ml Artificial Tears (Artificial Tears) 0 ml OU Q8 PRN PRN Reason: Dry eyes Last Admin: 02/07/18 08:40 Dose: 2 drop Aspirin (Aspirin Chewable) 81 mg PO DAILY [facility] Last Admin: 02/15/18 09:15 Dose: 81 mg Atorvastatin Calcium (Lipitor) 40 mg PO DIN [facility] Last Admin: 02/15/18 18:26 Dose: Not Given Carvedilol (Coreg) 25 mg PO BID [facility] Last Admin: 02/15/18 18:26 Dose: Not Given Clopidogrel Bisulfate (Plavix) 75 mg PO DAILY [facility] Divalproex Sodium (Depakote Sprinkles) 1,000 mg PO Q12 [facility] PRN Reason: Protocol Last Admin: 02/15/18 23:27 Dose: 1,000 mg Furosemide (Lasix) 40 mg PO DAILY [facility] Last Admin: 02/15/18 09:15 Dose: 40 mg Hydralazine HCl (Apresoline) 10 mg PO TID [facility] Last Admin: 02/15/18 18:26 Dose: Not Given Insulin Human Regular (Humulin R Med) 0 units SC [facility] PRN Reason: Protocol Last Admin: 02/15/18 23:28 Dose: Not Given Levetiracetam (Keppra) 1,500 mg PO Q12 [facility] Last Admin: 02/15/18 23:27 Dose: 1,500 mg Lorazepam (Ativan) 1 mg IVP Q6H PRN; Protocol PRN Reason: Seizure activity Last Admin: 02/06/18 14:28 Dose: 1 mg Ondansetron HCl (Zofran Inj) 4 mg IVP Q6H PRN PRN Reason: Nausea/Vomiting Last Admin: 02/11/18 09:24 Dose: 4 mg Pantoprazole Sodium (Protonix Ec Tab) 40 mg PO Q12 [facility] Last Admin: 02/15/18 23:27 Dose: 40 mg Phenol/Menthol (Phenaseptic 1.4% Throat [place]) 1 ml MT Q2H PRN PRN Reason: Sore Throat Polyethylene Glycol (Miralax) 17 gm PO BID [facility] Last Admin: 02/15/18 18:26 Dose: Not Given Potassium Chloride (Klor-Con 10) 30 meq PO ONCE ONE Stop: 02/16/18 08:01 Spironolactone (Aldactone) 25 mg PO DAILY [facility] Last Admin: 02/15/18 09:15 Dose: 25 mg Valsartan (Diovan) 320 mg PO DAILY [facility] Last Admin: 02/15/18 09:15 Dose: 320 mg - Labs Labs: 02/16/18 05:45 02/16/18 05:45 PT 15.0 SECONDS (9.4-12.5) H 02/13/18 06:00 INR 1.30 (0.93-1.08) H 02/13/18 06:00 APTT 28.3 Seconds (25.1-36.5) 02/13/18 06:00 Assessment and Plan - Assessment and Plan (Free Text) Assessment: Cardiac arrest at home Acute WA/CHF/S/P resuscitation in the field Anoxic encephalopathy, improving. Nl MS but diffusely weak. CAD/WA/Remote CABG/No regular cardiac f/u Severe CAD with severe LM, patent SVBG to RCA and OM, patent PADILLA to LAD. S/P LM stent. Moderately severe LVD, EF ~ 35% HBP Hypothyroidism Smoker Plan: EP evaluation/ICD at [facility] probably tomorrow. I spoke with his at the bedside. I spoke with Dr. Neal who will arrange EP studies. Question to neurology: Does he still need Keppra and Depakote? OOB to chair as marixa./PT In-patient Rehab following ICD implant
[2018-02-16] MEDS ORDERED: Potassium Chloride 10 mEq ER Tab PO ONE (08:00)
[2018-02-16] MEDS: POLYETHYLENE GLYCOL 3350 17 GM/Dose PACKET PO SCH ×3 (09:42→17:45)
[2018-02-16] MEDS: Pantoprazole 40 mg EC Tab PO SCH ×2 (09:43→21:54)
[2018-02-16] MEDS: Divalproex 125 mg EC Sprinkle Cap PO SCH ×2 (09:44→21:53)
--- NOTE | 2018-02-16 14:45 | CP.PCM.PN ---
<Shiva Burt - Last Filed: 02/16/18 14:53> Subjective - Date & Time of Evaluation Date of Evaluation: 02/16/18 Time of Evaluation: 07:00 - Subjective Subjective: Patient seen and examined at bedside in no acute distress s/p cath. Patient states he feels fine just slightly weak. Is aware of plan to go to [facility] for AICD placement. Denies shortness of breath, chest pain, palpitations, abdominal pain, nausea, vomiting, diarrhea, headache, body aches. Objective - Vital Signs/Intake and Output Vital Signs (last 24 hours): Temp Pulse Resp BP Pulse Ox 98.4 F 76 19 108/59 L 98 02/16/18 12:00 02/16/18 12:00 02/16/18 12:00 02/16/18 12:00 02/16/18 01:00 Intake and Output: 02/16/18 02/16/18 06:59 18:59 Intake Total 120 Output Total 1150 Balance -1030 - Medications Medications: Current Medications Acetaminophen (Tylenol 325mg Tab) 650 mg PO Q6H PRN PRN Reason: Fever >100.4 F Last Admin: 02/09/18 10:36 Dose: 650 mg Acetaminophen (Tylenol 325 Mg Supp) 325 mg RC Q6H PRN PRN Reason: Fever >100.4 F Albuterol/Ipratropium (Duoneb 3 Mg/0.5 Mg (3 Ml) Ud) 3 ml IH [id number] PRN PRN Reason: Shortness of Breath Last Admin: 02/11/18 10:29 Dose: 3 ml Artificial Tears (Artificial Tears) 0 ml OU Q8 PRN PRN Reason: Dry eyes Last Admin: 02/07/18 08:40 Dose: 2 drop Aspirin (Aspirin Chewable) 81 mg PO DAILY [facility] Last Admin: 02/16/18 09:43 Dose: 81 mg Atorvastatin Calcium (Lipitor) 40 mg PO DIN [facility] Last Admin: 02/15/18 18:26 Dose: Not Given Carvedilol (Coreg) 25 mg PO BID [facility] Last Admin: 02/16/18 09:43 Dose: 25 mg Clopidogrel Bisulfate (Plavix) 75 mg PO DAILY [facility] Last Admin: 02/16/18 09:43 Dose: 75 mg Divalproex Sodium (Depakote Sprinkles) 1,000 mg PO Q12 [facility] PRN Reason: Protocol Last Admin: 02/16/18 09:44 Dose: 1,000 mg Furosemide (Lasix) 40 mg PO DAILY [facility] Last Admin: 02/16/18 09:43 Dose: 40 mg Hydralazine HCl (Apresoline) 25 mg PO TID [facility] Last Admin: 02/16/18 09:43 Dose: 25 mg Insulin Human Regular (Humulin R Med) 0 units SC ACHS [facility] PRN Reason: Protocol Last Admin: 02/16/18 12:07 Dose: Not Given Levetiracetam (Keppra) 1,500 mg PO Q12 [facility] Last Admin: 02/16/18 09:43 Dose: 1,500 mg Lorazepam (Ativan) 1 mg IVP Q6H PRN; Protocol PRN Reason: Seizure activity Last Admin: 02/06/18 14:28 Dose: 1 mg Ondansetron HCl (Zofran Inj) 4 mg IVP Q6H PRN PRN Reason: Nausea/Vomiting Last Admin: 02/11/18 09:24 Dose: 4 mg Pantoprazole Sodium (Protonix Ec Tab) 40 mg PO Q12 [facility] Last Admin: 02/16/18 09:43 Dose: 40 mg Phenol/Menthol (Phenaseptic 1.4% Throat [place]) 1 ml MT Q2H PRN PRN Reason: Sore Throat Polyethylene Glycol (Miralax) 17 gm PO BID [facility] Last Admin: 02/16/18 10:08 Dose: Not Given Spironolactone (Aldactone) 25 mg PO DAILY [facility] Last Admin: 02/16/18 09:43 Dose: 25 mg Valsartan (Diovan) 320 mg PO DAILY [facility] Last Admin: 02/16/18 09:43 Dose: 320 mg - Labs Labs: 02/16/18 05:45 02/16/18 05:45 PT 15.0 SECONDS (9.4-12.5) H 02/13/18 06:00 INR 1.30 (0.93-1.08) H 02/13/18 06:00 APTT 28.3 Seconds (25.1-36.5) 02/13/18 06:00 - Head Exam Head Exam: ATRAUMATIC, NORMAL INSPECTION, NORMOCEPHALIC - Eye Exam Eye Exam: EOMI, Normal appearance - ENT Exam ENT Exam: Mucous Membranes Moist - Neck Exam Neck Exam: Full ROM - Respiratory Exam Respiratory Exam: Clear to Ausculation Bilateral, NORMAL BREATHING PATTERN - Cardiovascular Exam Cardiovascular Exam: REGULAR RHYTHM - GI/Abdominal Exam GI & Abdominal Exam: Soft, Normal Bowel Sounds - Extremities Exam Extremities Exam: Normal Inspection - Back Exam Back Exam: NORMAL INSPECTION - Neurological Exam Neurological Exam: Alert, Awake, CN II-XII Intact - Psychiatric Exam Psychiatric exam: Normal Affect, Normal Mood - Skin Skin Exam: Normal Color, Warm Assessment and Plan - Assessment and Plan (Free Text) Assessment: 57 year old male with history of CAD s/p CABG and 4 stents, hypertension, thyroid disease, and tobacco abuse presenting s/p cardiac arrest secondary to a cardiac event (possible posterior wall infarct) presenting with cardiogenic shock, code freeze completed, patient now currently extubated and doing remarkably well now transferred from ICU to telemetry. Plan: Cardiac Arrest - Etiology suspected to be 2/2 ventricular fibrillation - EKG reveals ST-T segments findings consistent with ischemia, possible inferior wall OH, intraventricular conduction delay evidenced by EKG and cardiac enzyme elevation - Echocardiogram reveals EF 20-25% with septum and apex severely hypokinetic. Left ventricular systolic function severely impaired. However s/p cath reveals an EF of 30%. - For now will continue with BB therapy, losartan, PO lasix, aldactone as well as losartan as per Cardiology - Continue finely chopped with thin liquid diet as recommended by speech pathologist. Will have speech pathologist re-evaluate for possible diet change. - Physical therapy and occupational therapy evaluation ordered; follow up with recommendations - Cardiac cath and PCI for further evaluation of CAD and bypass grafts revealed severe left main and triple vessel disease. Successful PCI of left main with drug eluting stent. Patient will continue aspirin and plavix for 1 year. - Patient will be transferred to [facility] for ICD evaluation. Hypokalemia -resolved Hypernatremia - resolved Tachycardia - Continue carvedilol 25 mg BID Metabolic and respiratory Acidosis - pH stabilized Hypercapnic respiratory failure -Resolved Anoxic encephalopathy secondary to cardiac arrest - Resolved - Code freeze protocol completed - Neurology consulted and following, recs as followed - recommending normothermic, normotensive, maintain electrolytes, head elevated at least 30 degrees - Initial CT head reveals findings concerning for global hypoxic ischemic injury however repeat CT head reveals no acute findings - Initial EEG reveals very low amplitude rhythm with no normal posterior dominant rhythm. No interictal epileptiform discharges. No seizure. EEG is abnormal. Repeat EEG shows slow brain electrical activity, but no seizures - As per neuro: will continue with 1500mg IVPB Q 12 and additional depakote at 1000 mg IVPB q 12 Leukocytosis secvondary to aspiration pneumonia vs CAP - ID consulted and following - Patient now febrile, as per ID: will continue to monitor patient off antibiotics since patient is prone to nosocomial infections - Repeat blood cultures, urine cultures and sputum cultures are negative and procalcitonin decreased at 0.32 - Patient remains afebrile Hypertension - Carvedilol - Continue diovan, aldactone, and hydralazine Smoking Sensation - Patient educated on smoking cessation and is in agreement GI/DVT ppx - Protonix - Heparin SC and SCDs Dispo: LTAC after discharge from [facility] Case discussed and reviewed with attending Shiva Burt PGY1 <Hank Ramírez - Last Filed: 02/17/18 12:28> Objective - Vital Signs/Intake and Output Vital Signs (last 24 hours): Temp Pulse Resp BP Pulse Ox 98 F 78 18 142/77 97 02/17/18 06:00 02/17/18 09:30 02/17/18 06:00 02/17/18 09:02 02/17/18 06:00 Intake and Output: 02/17/18 02/17/18 06:59 18:59 Intake Total 480 Output Total 800 Balance -320 - Labs Labs: 02/16/18 05:45 02/16/18 05:45 PT 15.0 SECONDS (9.4-12.5) H 02/13/18 06:00 INR 1.30 (0.93-1.08) H 02/13/18 06:00 APTT 28.3 Seconds (25.1-36.5) 02/13/18 06:00 Attending/Attestation - Attestation I have personally seen and examined this patient.: Yes I have fully participated in the care of the patient.: Yes I have reviewed all pertinent clinical information, including history, physical exam and plan: Yes Notes (Text): 02/17/18 12:27 Medical record note made by the resident after discussion with my direction and input after the patient was personally seen and examined by me. I have reviewed the chart and agree that the record accurately reflects by personal performance of the history, physical exam, data review, and medical decision-making, in the course for the patient. I have also personally directed the plan of care. 57 yrs male with PMH of CAD , SP CABG , HTN, hypothyroidism, had Vfib arrest in the field,was coded for about 10 mins and Intubated. Patient is sp hypothermic protocol and SP rewarming. Echo showed EF 25% on coreg/Diovan/ Spironolactone.Patient was extubated and now is in telemetry.Mental status is improved.Patient underwent cardiac catherization yesterday that showed severe CAD with severe LM, patent SVBG to RCA and OM, patent PADILLA to LAD. S/P LM stent. Moderately severe LVD, EF ~ 35%.Patient case was discussed with EP Physician Dr. Neal by Dr Ho.Patient will be transferred to [facility] probably tomorrow. Management plan was discussed in detail with patient and family. Education was provided.
--- NOTE | 2018-02-16 23:14 | PN ---
DATE: 02/16/2018 SUBJECTIVE: The patient is in bed in no acute distress, nontoxic. PHYSICAL EXAMINATION VITAL SIGNS: Temperature is 98, blood pressure is 118/50, respiratory rate of 18. HEENT: Examination of HEENT is unremarkable. NECK: Supple. LUNGS: Have decreased breath sounds. HEART: Normal S1, S2. ABDOMEN: Soft, nontender. LABORATORY DATA: Laboratory examination reveals a white count of 7.4, hemoglobin of 12, platelets of 298. BUN of 13, creatinine of 0.7. Urinalysis is noted. Serology is noted. ASSESSMENT AND PLAN: This is a 57-year-old male who is seen earlier this morning in [facility], bed 2. His is present at bedside. The patient with systemic inflammatory response syndrome status post ventilator-dependent respiratory failure after a cardiac arrest from acute coronary syndrome status post treatment for aspiration pneumonia, history of coronary artery disease status post coronary bypass graft, hypertension, thyroid disease. He has significant smoking history, currently off of antibiotics, afebrile, and the patient is at risk for developing nosocomial infections. Michel Delatorre MD
[2018-02-17 00:06] VITALS: RESP 18; TEMP 98
[2018-02-17 06:35] VITALS: O2SAT 97
[2018-02-17] MEDS: Insulin Reg-MEDIUM-Coverage SC SCH (08:02)
[2018-02-17] MEDS: Pantoprazole 40 mg EC Tab PO SCH (09:02)
[2018-02-17 09:05] VITALS: BP 142/77
[2018-02-17] MEDS: POLYETHYLENE GLYCOL 3350 17 GM/Dose PACKET PO SCH (09:07)
[2018-02-17] MEDS: Divalproex 125 mg EC Sprinkle Cap PO SCH (09:15)
[2018-02-17 10:00] VITALS: PULSE 78
--- NOTE | 2018-02-17 15:37 | PN ---
DATE: 02/17/2018 SUBJECTIVE: The patient seen earlier today in [facility], bed 1. No fevers, no chills. No nausea, no vomiting. PHYSICAL EXAMINATION: VITAL SIGNS: Temperature is 98, blood pressure is 140/70, respiratory rate of 18, heart rate of 81. HEENT: Unremarkable. NECK: Supple. LUNGS: Have decreased breath sounds. HEART: Normal S1, S2. ABDOMEN: Soft, nontender. LABORATORY DATA: Reveals a white count of 7.4, hemoglobin of 12. Chemistries reveal a BUN of 13, creatinine of 0.7. Urinalysis is noted and microbiology is noted. Review of orders reveals the patient to be off of antibiotics. ASSESSMENT AND PLAN: This is a 57-year-old male who was seen earlier today in [facility], bed 1, doing well, with systemic inflammatory response syndrome, status post ventilator-dependent respiratory failure after cardiac arrest and acute coronary syndrome, status post treatment for aspiration pneumonia, history of coronary artery disease requiring bypass graft, hypertension, thyroid disease, off of antibiotics, afebrile at risk for developing nosocomial infections. Michel Delatorre MD
--- NOTE | 2018-02-17 16:01 | PN ---
DATE: 02/17/2018 SUBJECTIVE: The patient is seen lying in bed on telemetry. He remains somewhat weak and debilitated. He has been noted to have up to 7-second pauses noted on telemetry. Beta-cristina was not discontinued yesterday. He is tentatively scheduled for transfer to later today for ICD implant. He denies any chest pain. CURRENT MEDICATIONS: Include Aldactone 25 mg daily, hydralazine 25 mg t.i.d., aspirin once daily, Ativan p.r.n., Depakote 1000 mg every 12 hours, Diovan 320 mg daily, DuoNeb inhaler, Keppra 1500 mg every 12 hours, Lasix 40 mg daily, Lipitor 40 mg daily, Plavix 75 mg daily, Protonix 40 mg daily. PHYSICAL EXAMINATION GENERAL: He is a middle-aged man who appears comfortable at rest. VITAL SIGNS: His blood pressure is 142/76 with a pulse of 76, respirations of 14. He is afebrile. Monitoring does reveal that occasional PVCs with frequent episodes of sinus arrest ranging from 3-7 seconds. HEENT: No JVD. CHEST: Few scattered rhonchi. HEART: Soft tones noted. PMI displaced laterally. ABDOMEN: Soft, nontender, normoactive bowel sounds. EXTREMITIES: No edema. DIAGNOSTIC DATA: No blood work pending from this morning. IMPRESSION: 1. Status post out of hospital arrest with full neurologic recovery. 2. Coronary artery disease status post prior bypass surgery with left main stent placed. Moderately severe left ventricular systolic dysfunction. 3. Marked sinus arrest, on beta-cristina therapy. 4. History of tobacco abuse. 5. Rest of problems as noted. RECOMMENDATIONS: His beta-cristina therapy will be withheld for now. He is scheduled for transfer to for a placement of an ICD. Beta-cristina therapy will be resumed after the device has been implanted. Given that the need for beta cristina use in the setting of known coronary artery disease and severe LV dysfunction, the pacing system was clearly needed and appropriate in the setting of recent out of hospital arrest, placement of an ICD would be advisable. A left main stent was placed, however, the lesion did not appear critical and it is not highly likely that this was the precipitating event for his out of hospital arrest. After ICD placement, transfer to a rehabilitation facility will be advised and close outpatient followup will be arranged. Bimal Pina MD [facility]
--- NOTE | 2018-02-18 11:55 | PQF SEPSIS ---
02/18/18 Dr. Ramírez, "Rule out sepsis" is documented on notes from 02/04 through 02/12. Please clarify whether sepsis was ruled in, ruled out, undetermined, other. Thank you. Clarification of your documentation is requested to better reflect the severity of illness and intensity of treatment of your patient. Indicators present [] Temp < 96.8 or > 100.4 [] WBC count > 12,000/mm3 or <000/mm3 or 10% immature neutrophils [] Heart Rate > 90 [] Respiratory Rate > 20 [] Fever or hypothermia [] Chills [] Positive blood cultures [] Hypotension [] Metabolic acidosis (Elevated lactate level, anion gap or reduced blood pH) [] Acute confusion /Altered Mental Status [] Shock [] Other: [] Location in the medical record that reflects the above clinical findings: [] Treatment Provided: [] PHYSICIAN'S RESPONSE 7 yrs male with PMH of CAD , SP CABG , HTN, hypothyroidism, had Vfib arrest in the field,was coded for about 10 mins and was intubated. Echo showed EF 25% on coreg/Diovan/Spironolactone.Patient did not has any sepsis, was treated for possible aspiration Pneumonia, Cultures were negative.No evidence of Sepsis. Based on your medical judgment of the clinical indicators outlined above, are you treating this patient for a known or suspected: [] Sepsis / Septicemia Please specify organism if known [] [] SIRS (Systemic Inflammatory Response Syndrome) [] Severe Sepsis (Sepsis with Associated Organ Dysfunction) [] Fever of Unknown Origin [] Other, please indicate: [] [] If Unable to Determine, please check the box, sign and date. Present On Admission (POA) Indicator: [] Present at the time of admission [] Not present at the time of admission [] Clinically Undetermined In responding to this query, please exercise your independent professional judgment. The fact that a question is asked does not imply that any particular answer is desired or expected. Thank you for your clarification on this documentation. If you have any questions please call:[ ] * Thank you, [ ] interactive media marketing director [facility]
--- NOTE | 2018-02-19 07:01 | CP.PCM.DIS ---
<Shiva Burt - Last Filed: 02/19/18 07:02> Provider - Provider Date of Admission: 02/04/18 05:42 Attending physician: Hank Ramírez MD Primary care physician: BARBARA FAMILY PROVIDER Consults: Cardiology: Dr. Flores Electrophysiology: Dr. Neal Neurology: Dr. Whitlock Infectious disease: Dr. Minor Gastroenterology: Dr. Tinsley Nephrology: Dr. Estrada Time Spent in preparation of Discharge (in minutes): 40 Diagnosis - Discharge Diagnosis (1) Myocardial infarction, posterior wall Status: Acute Priority: High (2) Acute kidney injury Status: Acute Priority: High (3) Anoxic brain injury Status: Acute Priority: High (4) CHF (congestive heart failure) Status: Acute Priority: High (5) Cardiac arrest Status: Acute Priority: High (6) Seizures Status: Acute Priority: High Hospital Course - Lab Results Lab Results: Micro Results 02/09/18 07:00 Blood-Venous Blood Culture - Final NO GROWTH AFTER 5 DAYS 02/09/18 07:00 Blood-Venous Gram Stain - Final TEST NOT PERFORMED 02/09/18 07:30 Blood-Venous Blood Culture - Final NO GROWTH AFTER 5 DAYS 02/09/18 07:30 Blood-Venous Gram Stain - Final TEST NOT PERFORMED 02/09/18 07:50 Sputum Gram Stain - Final 02/09/18 07:50 Sputum Sputum Culture - Final NORMAL ORAL JOSHUA 02/09/18 17:09 Urine,Garcia Urine Culture - Final No Growth (<1,000 CFU/ML) 02/05/18 06:30 Blood Blood Culture - Final NO GROWTH AFTER 5 DAYS 02/05/18 06:30 Blood Gram Stain - Final TEST NOT PERFORMED 02/04/18 07:00 Blood-Venous Blood Culture - Final NO GROWTH AFTER 5 DAYS 02/04/18 07:00 Blood-Venous Gram Stain - Final TEST NOT PERFORMED 02/04/18 06:45 Blood-Venous Blood Culture - Final NO GROWTH AFTER 5 DAYS 02/05/18 14:09 Urine,Catheterized Urine Culture - Final No Growth (<1,000 CFU/ML) 02/04/18 10:00 Naris MRSA Culture (Admit) - Final MRSA NOT DETECTED 02/04/18 07:00 Urine,Catheterized Urine Culture - Final No Growth (<1,000 CFU/ML) Most Recent Lab Values WBC 7.4 10^3/ul (4.5-11.0) 02/16/18 05:45 RBC 4.19 10^6/uL (3.5-6.1) 02/16/18 05:45 Hgb 12.1 g/dL (14.0-18.0) L 02/16/18 05:45 Hct 35.8 % (42.0-52.0) L 02/16/18 05:45 MCV 85.4 fl (80.0-105.0) 02/16/18 05:45 MCH 28.9 pg (25.0-35.0) 02/16/18 05:45 MCHC 33.8 g/dl (31.0-37.0) 02/16/18 05:45 RDW 13.7 % (11.5-14.5) 02/16/18 05:45 Plt Count 298 10^3/uL (120.0-450.0) 02/16/18 05:45 MPV 9.4 fl (7.0-11.0) 02/16/18 05:45 Gran % 52.5 % (50.0-68.0) 02/16/18 05:45 Lymph % (Auto) 33.6 % (22.0-35.0) 02/16/18 05:45 Douglas % (Auto) 11.7 % (1.0-6.0) H 02/16/18 05:45 Eos % (Auto) 1.9 % (1.5-5.0) 02/16/18 05:45 Baso % (Auto) 0.3 % (0.0-3.0) 02/16/18 05:45 Gran # 3.86 (1.4-6.5) 02/16/18 05:45 Lymph # (Auto) 2.5 (1.2-3.4) 02/16/18 05:45 Douglas # (Auto) 0.9 (0.1-0.6) H 02/16/18 05:45 Eos # (Auto) 0.1 (0.0-0.7) 02/16/18 05:45 Baso # (Auto) 0.02 K/mm3 (0.0-2.0) 02/16/18 05:45 Neutrophils % (Manual) 94 % (50.0-70.0) H 02/04/18 12:45 Band Neutrophils % 1 % (0-2) 02/04/18 12:45 Lymphocytes % (Manual) 4 % (22.0-35.0) L 02/04/18 12:45 Monocytes % (Manual) 1 % (1.0-6.0) 02/04/18 12:45 Platelet Evaluation Normal (NORMAL) 02/04/18 12:45 PT 15.0 SECONDS (9.4-12.5) H 02/13/18 06:00 INR 1.30 (0.93-1.08) H 02/13/18 06:00 APTT 28.3 Seconds (25.1-36.5) 02/13/18 06:00 D-Dimer, Quantitative 6693 ng/mL (0-243) H 02/04/18 07:00 pCO2 43 mm/Hg (35-45) 02/12/18 05:00 pO2 70.0 mm/Hg (80-100) L 02/12/18 05:00 HCO3 31.3 mmol/L (21-28) H 02/12/18 05:00 ABG pH 7.47 (7.35-7.45) H 02/12/18 05:00 ABG Total CO2 32.6 mmol.L (22-28) H 02/12/18 05:00 ABG O2 Saturation 95.5 % (95-98) 02/12/18 05:00 ABG O2 Content 17.6 ML/dl (15-23) 02/12/18 05:00 ABG Base Excess 6.8 mmol/L (-2.0-3.0) H 02/12/18 05:00 ABG Hemoglobin 13.4 g/dL (11.7-17.4) 02/12/18 05:00 ABG Carboxyhemoglobin 1.7 % (0.5-1.5) H 02/12/18 05:00 POC ABG HHb (Measured) 4.4 % (0-5) 02/12/18 05:00 ABG Methemoglobin 0.7 % (0.0-3.0) 02/12/18 05:00 ABG O2 Capacity 18.4 mL/dl (16-24) 02/12/18 05:00 ABG Potassium 4.1 mmol/L (3.6-5.2) 02/08/18 05:30 VBG pH 7.34 (7.32-7.43) 02/05/18 22:05 VBG pCO2 47.0 (40-60) 02/05/18 22:05 VBG HCO3 25.4 mmol/l (21-28) 02/05/18 22:05 VBG Total CO2 26.8 mmol.L (22-28) 02/05/18 22:05 VBG O2 Sat (Calc) 96.2 % (40-65) H 02/05/18 22:05 VBG Base Excess -0.8 mmol/L (0.0-2.0) L 02/05/18 22:05 VBG Potassium 4.4 mmol/L (3.6-5.2) 02/05/18 22:05 Hgb O2 Saturation 93.1 % (95.0-98.0) L 02/12/18 05:00 Sodium 142.0 mmol/L (132-148) 02/08/18 05:30 Chloride 115.0 mmol/L (98-107) H 02/08/18 05:30 Glucose 131 mg/dl (75-110) H 02/08/18 05:30 Lactate 0.9 mmol/L (0.7-2.1) 02/08/18 05:30 Mechanical Rate 38 02/05/18 00:25 FiO2 40.0 % 02/12/18 05:00 Tidal Volume 450 02/05/18 00:25 PEEP 15 02/05/18 16:30 Sodium 144 mmol/L (132-148) 02/16/18 05:45 Potassium 3.6 mmol/L (3.6-5.0) 02/16/18 05:45 Chloride 103 mmol/L (98-107) 02/16/18 05:45 Carbon Dioxide 28 mmol/L (21-33) 02/16/18 05:45 Anion Gap 17 (10-20) 02/16/18 05:45 BUN 13 mg/dL (7-21) 02/16/18 05:45 Creatinine 0.7 mg/dl (0.8-1.5) L 02/16/18 05:45 Est GFR ( Amer) > 60 02/16/18 05:45 Est GFR (Non-Af Amer) > 60 02/16/18 05:45 POC Glucose (mg/dL) 110 mg/dL (65-110) 02/17/18 07:21 Random Glucose 100 mg/dL (70-110) 02/16/18 05:45 Hemoglobin A1c 6.7 % (4.2-6.5) H 02/08/18 10:30 Calcium 8.9 mg/dL (8.4-10.5) 02/16/18 05:45 Ionized Calcium 2.8 mg/dL (4.80-5.60) L 02/05/18 22:05 Phosphorus 3.3 mg/dL (2.5-4.5) 02/15/18 05:30 Magnesium 2.0 mg/dL (1.7-2.2) 02/15/18 05:30 Total Bilirubin 0.5 mg/dL (0.2-1.3) 02/15/18 05:30 AST 45 U/L (17-59) 02/15/18 05:30 ALT 47 U/L (7-56) 02/15/18 05:30 Alkaline Phosphatase 72 U/L (38-126) 02/15/18 05:30 Ammonia 9 umol/L (9-33) 02/04/18 12:00 Troponin I 0.76 ng/mL H* D 02/06/18 05:00 NT-Pro-B Natriuret Pep 274 pg/mL (0-450) 02/04/18 07:00 Total Protein 6.7 g/dL (5.8-8.3) 02/15/18 05:30 Albumin 3.5 g/dL (3.0-4.8) 02/15/18 05:30 Globulin 3.2 gm/dL 02/15/18 05:30 Albumin/Globulin Ratio 1.1 (1.1-1.8) 02/15/18 05:30 Procalcitonin 0.32 NG/ML (0.19-0.49) 02/09/18 07:00 Free T4 1.77 ng/dL (0.78-2.19) 02/04/18 08:05 Free T3 pg/mL 5.70 pg/mL (2.77-5.27) H 02/04/18 08:05 TSH 3rd Generation 2.71 mIU/mL (0.46-4.68) 02/04/18 08:05 Arterial Blood Potassium 4.1 mmol/L (3.6-5.2) 02/08/18 05:30 Venous Blood Potassium 4.4 mmol/L (3.6-5.2) 02/05/18 22:05 Urine Color Yellow (YELLOW) 02/09/18 17:09 Urine Appearance Clear (CLEAR) 02/09/18 17:09 Urine pH 5.5 (4.7-8.0) 02/09/18 17:09 Ur Specific [place] 1.025 (1.005-1.035) 02/09/18 17:09 Urine Protein Trace mg/dL (<30 mg/dL) H 02/09/18 17:09 Urine Glucose (UA) Negative mg/dL (NEGATIVE) 02/09/18 17:09 Urine Ketones 40 mg/dL (NEGATIVE) H 02/09/18 17:09 Urine Blood Small (NEGATIVE) H 02/09/18 17:09 Urine Nitrate Negative (NEGATIVE) 02/09/18 17:09 Urine Bilirubin Negative (NEGATIVE) 02/09/18 17:09 Urine Urobilinogen 0.2 E.U./dL (<1 E.U./dL) 02/09/18 17:09 Ur Leukocyte Esterase Negative Jimmy/uL (NEGATIVE) 02/09/18 17:09 Urine RBC 5 - 10 /hpf (0-2) 02/09/18 17:09 Urine WBC 0 - 2 /hpf (0-6) 02/09/18 17:09 Ur Epithelial Cells None /hpf (0-5) 02/09/18 17:09 Amorphous Sediment Few 02/09/18 17:09 Urine Bacteria Large (NEG) 02/09/18 17:09 Coarse Granular Casts Trace /hpf (0-2) H 02/09/18 17:09 Urine Other Uyeast 02/09/18 17:09 Valproic Acid 64 ug/mL (50.0-100.0) 02/15/18 05:30 Levetiracetam 18.3 mcg/mL 02/11/18 05:17 Hepatitis A IgM Ab Negative (NEGATIVE) 02/06/18 05:00 Hep Bs Antigen Negative (NEGATIVE) 02/06/18 05:00 Hep B Core IgM Ab Negative (NEGATIVE) 02/06/18 05:00 Hepatitis C Antibody Negative (NEGATIVE) 02/06/18 05:00 Blood Type A POSITIVE 02/08/18 11:45 Blood Type Confirm A POSITIVE 02/08/18 13:00 Antibody Screen Negative 02/08/18 11:45 Crossmatch See Detail 02/08/18 11:45 BBK History Checked No verified bt 02/08/18 11:45 - Hospital Course Hospital Course: Patient is 57 year old male with history of CAD s/p CABG and 4 stents, hypertension, thyroid disease, and tobacco abuse who presented s/p cardiac arrest secondary to a cardiac event (possible posterior wall infarct) who presented with cardiogenic shock. On the field patient was found to be in ventricular fibrillation, and underwent 5 shocks and two rounds of epinpehrine. Heparin drip was started due to posterior wall OR. Code freeze was initiated and completed. Prior to code freeze CT head revealed global hypoxic brain injury. Patient was intubated due to hypoxic respiratory distress. After rewarming, patient was finally extubated and taken of sedation. Repeat CT head revealed no acute abnormalities. With time patient began to regain strength and ameliorated. Once stable enough patient underwent cardiac cath and was found to have severe left main disease and ejection fraction of 30%(which improved from previous 25% ),for which a drug eluting stent was placed. Due to severe disease and history of cardiac arrest and ventricular fibrillation patient was a candidate for ICD placement. Patient was in agreement with plan and then transferred to [facility] for placement of ICD. The night prior to transfer patient experienced two sinus pauses overnight. Please refer to previous notes for more details. Case discussed and reviewed with Dr. Desiree Burt PGY1 Discharge Exam - Head Exam Head Exam: ATRAUMATIC, NORMAL INSPECTION, NORMOCEPHALIC - Eye Exam Eye Exam: EOMI, Normal appearance - Respiratory Exam Respiratory Exam: Clear to PA & Lateral, UNREMARKABLE. absent: Wheezes - Cardiovascular Exam Cardiovascular Exam: REGULAR RHYTHM, +S1, +S2 - GI/Abdominal Exam GI & Abdominal Exam: Normal Bowel Sounds, Unremarkable - Extremities Exam Extremities exam: normal inspection - Back Exam Back exam: NORMAL INSPECTION - Neurological Exam Neurological exam: Alert, CN II-XII Intact, Oriented x3 - Psychiatric Exam Psychiatric exam: Normal Affect, Normal Mood - Skin Skin Exam: Intact, Normal Color, Warm Discharge Plan - Follow Up Plan Condition: CRITICAL Disposition: OTHER INSTITUTION Referrals: FAMILY PROVIDER,NO [Primary Care Provider] - <Hank Ramírez - Last Filed: 02/22/18 12:15> Provider - Provider Date of Admission: 02/04/18 05:42 Attending physician: Hank Ramírez MD Primary care physician: BARBARA FAMILY PROVIDER Hospital Course - Lab Results Lab Results: Micro Results 02/09/18 07:00 Blood-Venous Blood Culture - Final NO GROWTH AFTER 5 DAYS 02/09/18 07:00 Blood-Venous Gram Stain - Final TEST NOT PERFORMED 02/09/18 07:30 Blood-Venous Blood Culture - Final NO GROWTH AFTER 5 DAYS 02/09/18 07:30 Blood-Venous Gram Stain - Final TEST NOT PERFORMED 02/09/18 07:50 Sputum Gram Stain - Final 02/09/18 07:50 Sputum Sputum Culture - Final NORMAL ORAL JOSHUA 02/09/18 17:09 Urine,Garcia Urine Culture - Final No Growth (<1,000 CFU/ML) 02/05/18 06:30 Blood Blood Culture - Final NO GROWTH AFTER 5 DAYS 02/05/18 06:30 Blood Gram Stain - Final TEST NOT PERFORMED 02/04/18 07:00 Blood-Venous Blood Culture - Final NO GROWTH AFTER 5 DAYS 02/04/18 07:00 Blood-Venous Gram Stain - Final TEST NOT PERFORMED 02/04/18 06:45 Blood-Venous Blood Culture - Final NO GROWTH AFTER 5 DAYS 02/05/18 14:09 Urine,Catheterized Urine Culture - Final No Growth (<1,000 CFU/ML) 02/04/18 10:00 Naris MRSA Culture (Admit) - Final MRSA NOT DETECTED 02/04/18 07:00 Urine,Catheterized Urine Culture - Final No Growth (<1,000 CFU/ML) Most Recent Lab Values WBC 7.4 10^3/ul (4.5-11.0) 02/16/18 05:45 RBC 4.19 10^6/uL (3.5-6.1) 02/16/18 05:45 Hgb 12.1 g/dL (14.0-18.0) L 02/16/18 05:45 Hct 35.8 % (42.0-52.0) L 02/16/18 05:45 MCV 85.4 fl (80.0-105.0) 02/16/18 05:45 MCH 28.9 pg (25.0-35.0) 02/16/18 05:45 MCHC 33.8 g/dl (31.0-37.0) 02/16/18 05:45 RDW 13.7 % (11.5-14.5) 02/16/18 05:45 Plt Count 298 10^3/uL (120.0-450.0) 02/16/18 05:45 MPV 9.4 fl (7.0-11.0) 02/16/18 05:45 Gran % 52.5 % (50.0-68.0) 02/16/18 05:45 Lymph % (Auto) 33.6 % (22.0-35.0) 02/16/18 05:45 Douglas % (Auto) 11.7 % (1.0-6.0) H 02/16/18 05:45 Eos % (Auto) 1.9 % (1.5-5.0) 02/16/18 05:45 Baso % (Auto) 0.3 % (0.0-3.0) 02/16/18 05:45 Gran # 3.86 (1.4-6.5) 02/16/18 05:45 Lymph # (Auto) 2.5 (1.2-3.4) 02/16/18 05:45 Douglas # (Auto) 0.9 (0.1-0.6) H 02/16/18 05:45 Eos # (Auto) 0.1 (0.0-0.7) 02/16/18 05:45 Baso # (Auto) 0.02 K/mm3 (0.0-2.0) 02/16/18 05:45 Neutrophils % (Manual) 94 % (50.0-70.0) H 02/04/18 12:45 Band Neutrophils % 1 % (0-2) 02/04/18 12:45 Lymphocytes % (Manual) 4 % (22.0-35.0) L 02/04/18 12:45 Monocytes % (Manual) 1 % (1.0-6.0) 02/04/18 12:45 Platelet Evaluation Normal (NORMAL) 02/04/18 12:45 PT 15.0 SECONDS (9.4-12.5) H 02/13/18 06:00 INR 1.30 (0.93-1.08) H 02/13/18 06:00 APTT 28.3 Seconds (25.1-36.5) 02/13/18 06:00 D-Dimer, Quantitative 6693 ng/mL (0-243) H 02/04/18 07:00 pCO2 43 mm/Hg (35-45) 02/12/18 05:00 pO2 70.0 mm/Hg (80-100) L 02/12/18 05:00 HCO3 31.3 mmol/L (21-28) H 02/12/18 05:00 ABG pH 7.47 (7.35-7.45) H 02/12/18 05:00 ABG Total CO2 32.6 mmol.L (22-28) H 02/12/18 05:00 ABG O2 Saturation 95.5 % (95-98) 02/12/18 05:00 ABG O2 Content 17.6 ML/dl (15-23) 02/12/18 05:00 ABG Base Excess 6.8 mmol/L (-2.0-3.0) H 02/12/18 05:00 ABG Hemoglobin 13.4 g/dL (11.7-17.4) 02/12/18 05:00 ABG Carboxyhemoglobin 1.7 % (0.5-1.5) H 02/12/18 05:00 POC ABG HHb (Measured) 4.4 % (0-5) 02/12/18 05:00 ABG Methemoglobin 0.7 % (0.0-3.0) 02/12/18 05:00 ABG O2 Capacity 18.4 mL/dl (16-24) 02/12/18 05:00 ABG Potassium 4.1 mmol/L (3.6-5.2) 02/08/18 05:30 VBG pH 7.34 (7.32-7.43) 02/05/18 22:05 VBG pCO2 47.0 (40-60) 02/05/18 22:05 VBG HCO3 25.4 mmol/l (21-28) 02/05/18 22:05 VBG Total CO2 26.8 mmol.L (22-28) 02/05/18 22:05 VBG O2 Sat (Calc) 96.2 % (40-65) H 02/05/18 22:05 VBG Base Excess -0.8 mmol/L (0.0-2.0) L 02/05/18 22:05 VBG Potassium 4.4 mmol/L (3.6-5.2) 02/05/18 22:05 Hgb O2 Saturation 93.1 % (95.0-98.0) L 02/12/18 05:00 Sodium 142.0 mmol/L (132-148) 02/08/18 05:30 Chloride 115.0 mmol/L (98-107) H 02/08/18 05:30 Glucose 131 mg/dl (75-110) H 02/08/18 05:30 Lactate 0.9 mmol/L (0.7-2.1) 02/08/18 05:30 Mechanical Rate 38 02/05/18 00:25 FiO2 40.0 % 02/12/18 05:00 Tidal Volume 450 02/05/18 00:25 PEEP 15 02/05/18 16:30 Sodium 144 mmol/L (132-148) 02/16/18 05:45 Potassium 3.6 mmol/L (3.6-5.0) 02/16/18 05:45 Chloride 103 mmol/L (98-107) 02/16/18 05:45 Carbon Dioxide 28 mmol/L (21-33) 02/16/18 05:45 Anion Gap 17 (10-20) 02/16/18 05:45 BUN 13 mg/dL (7-21) 02/16/18 05:45 Creatinine 0.7 mg/dl (0.8-1.5) L 02/16/18 05:45 Est GFR ( Amer) > 60 02/16/18 05:45 Est GFR (Non-Af Amer) > 60 02/16/18 05:45 POC Glucose (mg/dL) 110 mg/dL (65-110) 02/17/18 07:21 Random Glucose 100 mg/dL (70-110) 02/16/18 05:45 Hemoglobin A1c 6.7 % (4.2-6.5) H 02/08/18 10:30 Calcium 8.9 mg/dL (8.4-10.5) 02/16/18 05:45 Ionized Calcium 2.8 mg/dL (4.80-5.60) L 02/05/18 22:05 Phosphorus 3.3 mg/dL (2.5-4.5) 02/15/18 05:30 Magnesium 2.0 mg/dL (1.7-2.2) 02/15/18 05:30 Total Bilirubin 0.5 mg/dL (0.2-1.3) 02/15/18 05:30 AST 45 U/L (17-59) 02/15/18 05:30 ALT 47 U/L (7-56) 02/15/18 05:30 Alkaline Phosphatase 72 U/L (38-126) 02/15/18 05:30 Ammonia 9 umol/L (9-33) 02/04/18 12:00 Troponin I 0.76 ng/mL H* D 02/06/18 05:00 NT-Pro-B Natriuret Pep 274 pg/mL (0-450) 02/04/18 07:00 Total Protein 6.7 g/dL (5.8-8.3) 02/15/18 05:30 Albumin 3.5 g/dL (3.0-4.8) 02/15/18 05:30 Globulin 3.2 gm/dL 02/15/18 05:30 Albumin/Globulin Ratio 1.1 (1.1-1.8) 02/15/18 05:30 Procalcitonin 0.32 NG/ML (0.19-0.49) 02/09/18 07:00 Free T4 1.77 ng/dL (0.78-2.19) 02/04/18 08:05 Free T3 pg/mL 5.70 pg/mL (2.77-5.27) H 02/04/18 08:05 TSH 3rd Generation 2.71 mIU/mL (0.46-4.68) 02/04/18 08:05 Arterial Blood Potassium 4.1 mmol/L (3.6-5.2) 02/08/18 05:30 Venous Blood Potassium 4.4 mmol/L (3.6-5.2) 02/05/18 22:05 Urine Color Yellow (YELLOW) 02/09/18 17:09 Urine Appearance Clear (CLEAR) 02/09/18 17:09 Urine pH 5.5 (4.7-8.0) 02/09/18 17:09 Ur Specific [place] 1.025 (1.005-1.035) 02/09/18 17:09 Urine Protein Trace mg/dL (<30 mg/dL) H 02/09/18 17:09 Urine Glucose (UA) Negative mg/dL (NEGATIVE) 02/09/18 17:09 Urine Ketones 40 mg/dL (NEGATIVE) H 02/09/18 17:09 Urine Blood Small (NEGATIVE) H 02/09/18 17:09 Urine Nitrate Negative (NEGATIVE) 02/09/18 17:09 Urine Bilirubin Negative (NEGATIVE) 02/09/18 17:09 Urine Urobilinogen 0.2 E.U./dL (<1 E.U./dL) 02/09/18 17:09 Ur Leukocyte Esterase Negative Jimmy/uL (NEGATIVE) 02/09/18 17:09 Urine RBC 5 - 10 /hpf (0-2) 02/09/18 17:09 Urine WBC 0 - 2 /hpf (0-6) 02/09/18 17:09 Ur Epithelial Cells None /hpf (0-5) 02/09/18 17:09 Amorphous Sediment Few 02/09/18 17:09 Urine Bacteria Large (NEG) 02/09/18 17:09 Coarse Granular Casts Trace /hpf (0-2) H 02/09/18 17:09 Urine Other Uyeast 02/09/18 17:09 Valproic Acid 64 ug/mL (50.0-100.0) 02/15/18 05:30 Levetiracetam 18.3 mcg/mL 02/11/18 05:17 Hepatitis A IgM Ab Negative (NEGATIVE) 02/06/18 05:00 Hep Bs Antigen Negative (NEGATIVE) 02/06/18 05:00 Hep B Core IgM Ab Negative (NEGATIVE) 02/06/18 05:00 Hepatitis C Antibody Negative (NEGATIVE) 02/06/18 05:00 Blood Type A POSITIVE 02/08/18 11:45 Blood Type Confirm A POSITIVE 02/08/18 13:00 Antibody Screen Negative 02/08/18 11:45 Crossmatch See Detail 02/08/18 11:45 BBK History Checked No verified bt 02/08/18 11:45 Attending/Attestation - Attestation I have personally seen and examined this patient.: Yes I have fully participated in the care of the patient.: Yes I have reviewed all pertinent clinical information, including history, physical exam and plan: Yes Notes (Text): 02/22/18 12:14 Medical record note made by the resident after discussion with my direction and input after the patient was personally seen and examined by me. I have reviewed the chart and agree that the record accurately reflects by personal performance of the history, physical exam, data review, and medical decision-making, in the course for the patient. I have also personally directed the plan of care. 57 yrs male with PMH of CAD , SP CABG , HTN, hypothyroidism, had Vfib arrest in the field,was coded for about 10 mins and Intubated. Patient is sp hypothermic protocol and SP rewarming. Echo showed EF 25% on coreg/Diovan/ Spironolactone.Patient was extubated and was transfered to telemetry.Mental status is improved.Patient underwent cardiac catherization that showed severe CAD with severe LM, patent SVBG to RCA and OM, patent PADILLA to LAD. S/P LM stent. Moderately severe LVD, EF ~ 35%.Patient case was discussed with EP Physician Dr. Neal by Dr Ho. and is transferred to [facility] for A[facility], Management plan was discussed in detail with patient and family. Education was provided.
== END 2018-02-17 10:30 | disposition designated cancer center or children's hospital (05) | DRG 246 ==
LOC: ED 04:05 → ERH 05:42 → CCU 08:18 → 2RNO 02-12 16:42 → 2RSO 02-15 18:03
PROVIDERS: ADMIT Internal Medicine; ATTEND Internal Medicine
PROC: 05HM33Z Insertion of Infusion Device into Right Internal Jugular Vein, Percutaneous Approach (ICD-10-PCS; 2018-02-04)
PROC: B543ZZA Ultrasonography of Right Jugular Veins, Guidance (ICD-10-PCS; 2018-02-04)
PROC: 04HY32Z Insertion of Monitoring Device into Lower Artery, Percutaneous Approach (ICD-10-PCS; 2018-02-04)
PROC: B44LZZZ Ultrasonography of Femoral Artery (ICD-10-PCS; 2018-02-04)
PROC: 0BH17EZ Insertion of Endotracheal Airway into Trachea, Via Natural or Artificial Opening (ICD-10-PCS; 2018-02-04)
PROC: 5A1955Z Respiratory Ventilation, Greater than 96 Consecutive Hours (ICD-10-PCS; 2018-02-04)
PROC: 027034Z Dilation of Coronary Artery, One Artery with Drug-eluting Intraluminal Device, Percutaneous Approach (ICD-10-PCS; principal; 2018-02-15)
PROC: B2111ZZ Fluoroscopy of Multiple Coronary Arteries using Low Osmolar Contrast (ICD-10-PCS; 2018-02-15)
PROC: B2131ZZ Fluoroscopy of Multiple Coronary Artery Bypass Grafts using Low Osmolar Contrast (ICD-10-PCS; 2018-02-15)
PROC: B2151ZZ Fluoroscopy of Left Heart using Low Osmolar Contrast (ICD-10-PCS; 2018-02-15)
PROC: B41F1ZZ Fluoroscopy of Right Lower Extremity Arteries using Low Osmolar Contrast (ICD-10-PCS; 2018-02-15)
DX: I49.01 Ventricular fibrillation (principal); J96.01 Acute respiratory failure with hypoxia; R57.0 Cardiogenic shock; I50.23 Acute on chronic systolic (congestive) heart failure; J69.0 Pneumonitis due to inhalation of food and vomit; J96.02 Acute respiratory failure with hypercapnia; N17.9 Acute kidney failure, unspecified; G93.1 Anoxic brain damage, not elsewhere classified; E87.4 Mixed disorder of acid-base balance; E87.0 Hyperosmolality and hypernatremia; I24.9 Acute ischemic heart disease, unspecified; K92.2 Gastrointestinal hemorrhage, unspecified; Z99.11 Dependence on respirator [ventilator] status; I47.2 Ventricular tachycardia; I11.0 Hypertensive heart disease with heart failure; E03.9 Hypothyroidism, unspecified; E11.9 Type 2 diabetes mellitus without complications; E83.39 Other disorders of phosphorus metabolism; E83.51 Hypocalcemia; E87.6 Hypokalemia; F17.200 Nicotine dependence, unspecified, uncomplicated; I25.10 Atherosclerotic heart disease of native coronary artery without angina pectoris; I25.2 Old myocardial infarction; I25.5 Ischemic cardiomyopathy; I34.0 Nonrheumatic mitral (valve) insufficiency; I45.5 Other specified heart block; K27.9 Peptic ulcer, site unspecified, unspecified as acute or chronic, without hemorrhage or perforation; R56.9 Unspecified convulsions; Z79.82 Long term (current) use of aspirin; Z95.1 Presence of aortocoronary bypass graft

== ENCOUNTER 2018-02-18 13:50 | Inpatient (IN) | payer BC, OTHER ==
--- NOTE | 2018-02-18 18:01 | CP.PCM.HP ---
History of Present Illness - History of Present Illness History of Present Illness: PGY-[address] Anderson CC: s/p AICD Mr Armenta, 57 M, heavy smoker, with PMH of CAD s/P CABG , HTN, hypothyroidism , had Vfib arrest in the field, was coded for about 10 mins and Intubated. Patient is sp hypothermic protocol and SP rewarming. Echo showed EF 25% on coreg /Diovan/Spironolactone. Patient was extubated after a week of intubation, and downgraded to telemetry. Mental status is improved. He developed seizure possibly from anoxic brain injury and was placed on antiepileptic meds. Patient underwent cardiac catherization on 02/15, which showed severe left main and triple vessel disease, patent grafts (patent SVBG to RCA and OM, patent PADILLA to LAD), severe LV systolic dysfunction. He received a drug eluting stent at the left main. His LVEF ~ 35%. He was transferred to [facility] for AICD placement. Now he transferred back to [facility] after the AICD placement. ROS: Denies SMITH, dizziness, fever/chills, SOB, CP, palpitation, N/V/D/C, dysuria PMHx: HTN, CAD s/p CABG s/p AICD, hypothyroidism, seizure from anoxic brain injury s/p cardiac arrest heavy smoker PSHx: CABG 10 years ago AICD placement (january 2018) Family Hx: Dad (who was a smoker) of lung cancer Social: Smoker 1 ppd for 40 years. No noted alcohol or drug use per . Works as senior information security analyst. Allergies: NKDA PMD: does not have one at this time Meds: Keppra 1500 Q12, divalproex 1000 q12 ASA 81, plavix 75, coreg 25 bid Hydralazine 25 TID, Valsartan 320 daily, spironolactone 25 daily, lasix 40 daily Miralax BID, protonix 40 bid lipitor 40 Present on Admission - Present on Admission Any Indicators Present on Admission: No Past Patient History - Infectious Disease Hx of Infectious Diseases: None - Past Social History Smoking Status: Heavy Smoker > 10 Cigarettes Daily - CARDIAC Hx Cardiac Disorders: Yes Hx Hypertension: Yes - PULMONARY Hx Respiratory Disorders: No - NEUROLOGICAL Hx Neurological Disorder: No - HEENT Hx HEENT Problems: No - RENAL Hx Chronic Kidney Disease: No - ENDOCRINE/METABOLIC Hx Hypothyroidism: Yes - HEMATOLOGICAL/ONCOLOGICAL Hx Blood Disorders: No - INTEGUMENTARY Hx Dermatological Problems: Yes Other/Comment: healed surgical scar inner left ankle - MUSCULOSKELETAL/RHEUMATOLOGICAL Hx Falls: No - GASTROINTESTINAL Hx Gastrointestinal Disorders: Yes (obese) - GENITOURINARY/GYNECOLOGICAL Hx Genitourinary Disorders: No - PSYCHIATRIC Hx Substance Use: No - SURGICAL HISTORY Hx Surgeries: Yes Hx Orthopedic Surgery: Yes (left ankle has hardware, years ago) Other/Comment: right jugular triple lumen cathetr inserted today - ANESTHESIA Hx Anesthesia: Yes Hx Anesthesia Reactions: No Meds Allergies/Adverse Reactions: Allergies Allergy/AdvReac Type Severity Reaction Status Date / Time No Known Allergies Allergy Verified 02/04/18 04:41 Physical Exam - Constitutional Appears: No Acute Distress - Head Exam Head Exam: ATRAUMATIC, NORMAL INSPECTION, NORMOCEPHALIC - Eye Exam Eye Exam: EOMI, Normal appearance, PERRL. absent: Scleral icterus Pupil Exam: NORMAL ACCOMODATION - ENT Exam ENT Exam: Mucous Membranes Moist - Neck Exam Additional comments: supple, no jvd - Respiratory Exam Respiratory Exam: Decreased Breath Sounds (bilateral lung bases), Clear to Auscultation Bilateral. absent: Rales, Rhonchi, Wheezes - Cardiovascular Exam Cardiovascular Exam: REGULAR RHYTHM, +S1, +S2 Additional comments: AICD insertion site on L upper chest, no erythma/drainage/pain - GI/Abdominal Exam GI & Abdominal Exam: Normal Bowel Sounds, Soft. absent: Distended, Guarding, Rebound, Rigid - Extremities Exam Extremities exam: Positive for: normal capillary refill, pedal pulses present. Negative for: calf tenderness, pedal edema - Back Exam Back exam: absent: CVA tenderness (L), CVA tenderness (R) - Neurological Exam Neurological exam: Alert, Oriented x3 - Psychiatric Exam Psychiatric exam: Normal Affect, Normal Mood - Skin Skin Exam: Dry, Warm Assessment & Plan - Assessment and Plan (Free Text) Plan: A/P CAD with Drug eluting stent (January 2018) - ASA, plavix, lipitor, coreg, diovan ISchemic cardiomyopathy s/p AICD, systolic CHF - laxis, aldactone, hydralazine s/p cardiac arrest - Got AICD to prevent sudden cardiac Seizure likely from anoxic brain injury - yanni godinez Stress GI ulcers - protonix bid Diabetes, A1C 6.7 - ISSS, accu check Thyroid problem - methimazole? Levothyroxine? check TSH/Free T4 Constipation - miralax bid Deconditioning - Physical therapy Prophylaxis - heparin, protonix bid Tobacco abuse - counselor manager cessation. Pt agreed, "No more smoking" s/r/d/w Dr Loera
[2018-02-18 18:18] VITALS: BMI 24.5
[2018-02-18] MEDS: Divalproex 500 mg DR(BID formulation) PO SCH (21:44)
[2018-02-18] MEDS: Insulin Reg-LOW-Coverage SC SCH (21:56)
[2018-02-19 00:02] VITALS: RESP 20
[2018-02-19 05:50] VITALS: O2SAT 98
[2018-02-19 06:23] LABS: BASO # 0.05 K/mm3 (0.0-2.0); BASO % 0.6 % (0.0-3.0); EOS # 0.2 (0.0-0.7); EOS % 2.7 % (1.5-5.0); GRAN # 3.14 (1.4-6.5); GRAN % 40.1 % (50.0-68.0); HEMOGLOBIN 10.3 g/dL (14.0-18.0); LYMPH # 3.2 (1.2-3.4); LYMPH % 41.3 % (22.0-35.0); MEAN CELL VOLUME 86.8 fl (80.0-105.0); MEAN CORPUSCULAR HEMOGLOBIN 28.9 pg (25.0-35.0); MEAN CORPUSCULAR HGB CONC 33.3 g/dl (31.0-37.0); MEAN PLATELET VOLUME 9.3 fl (7.0-11.0); MONO # 1.2 (0.1-0.6); MONO % 15.3 % (1.0-6.0); RBC 3.56 10^6/uL (3.5-6.1); RED CELL DISTRIBUTION WIDTH 13.8 % (11.5-14.5); WHITE BLOOD COUNT 7.8 10^3/ul (4.5-11.0)
[2018-02-19 06:53] LABS: ALBUMIN 3.4 g/dL (3.0-4.8); ALT/SGPT 51 U/L (7-56); AST/SGOT 50 U/L (17-59); BLOOD UREA NITROGEN 12 mg/dL (7-21); CALCIUM 8.6 mg/dL (8.4-10.5); GFR AFRICAN-AMERICAN > 60; GFR NON-AFRICAN AMERICAN > 60
[2018-02-19 06:57] LABS: FREE T4 5.02 ng/dL (0.78-2.19)
--- NOTE | 2018-02-19 07:58 | CP.PCM.PN ---
Subjective - Date & Time of Evaluation Date of Evaluation: 02/19/18 Time of Evaluation: 07:00 - Subjective Subjective: Stable on 2R. S/P ICD implant at [facility] 02/17/18. No CP or SOB. Still very weak. V/S noted. RSR PE: Lungs: clear Cor.: S1S2 Abd.: soft Ext.: no edema Neuro.: alert Objective - Vital Signs/Intake and Output Vital Signs (last 24 hours): Temp Pulse Resp BP Pulse Ox 98.0 F 81 20 152/53 H 98 02/19/18 05:50 02/19/18 05:50 02/19/18 05:50 02/19/18 05:50 02/19/18 05:50 Intake and Output: 02/19/18 02/19/18 06:59 18:59 Intake Total 300 Output Total 200 Balance 100 - Medications Medications: Current Medications Aspirin (Aspirin Chewable) 81 mg PO DAILY [facility] Atorvastatin Calcium (Lipitor) 40 mg PO DIN [facility] Carvedilol (Coreg) 25 mg PO BID [facility] Clopidogrel Bisulfate (Plavix) 75 mg PO DAILY [facility] Divalproex Sodium (Depakote Dr(*Bid*)) 1,000 mg PO Q12 [facility] PRN Reason: Protocol Last Admin: 02/18/18 21:44 Dose: 1,000 mg Furosemide (Lasix) 40 mg PO DAILY [facility] Heparin Sodium (Porcine) (Heparin) 5,000 units SC Q8 [facility] PRN Reason: Protocol Last Admin: 02/19/18 05:27 Dose: 5,000 units Hydralazine HCl (Apresoline) 25 mg PO TID [facility] Insulin Human Regular (Humulin R Low) 0 units SC ACHS [facility] PRN Reason: Protocol Last Admin: 02/18/18 21:56 Dose: Not Given Levetiracetam (Keppra) 1,500 mg PO Q12 [facility] Last Admin: 02/19/18 00:37 Dose: 1,500 mg Pantoprazole Sodium (Protonix Ec Tab) 40 mg PO BID [facility] Polyethylene Glycol (Miralax) 17 gm PO BID [facility] Spironolactone (Aldactone) 25 mg PO DAILY [facility] Valsartan (Diovan) 320 mg PO DAILY [facility] - Labs Labs: 02/19/18 05:45 02/19/18 05:45 Assessment and Plan - Assessment and Plan (Free Text) Assessment: S/P Cardiac Arrest at home Acute DC/CHF/Resuscitation in the field Anoxic encephalopathy resolved with severe residual weakness CAD/Remote DC and CABG Severe CAD with patent SVBG to RCA and OM, patent PADILLA to LAD, moderately severe LVD, LV EF ~ 35% PCI LM 02/15/18 HBP Hypothyroidism Smoker Plan: OOB as marixa/PT/OT/Rehab Continue cardiac meds including Plavix for 1 year minimum. EP/ICD and Cardiology F/U to be arranged. Note to medical team: Please clarify need for Depakote and Keppra with Neuro.
[2018-02-19] MEDS: Insulin Reg-LOW-Coverage SC SCH ×2 (08:08→12:22)
[2018-02-19] MEDS: Divalproex 500 mg DR(BID formulation) PO SCH (09:24)
[2018-02-19] MEDS ORDERED: Pantoprazole 40 mg EC Tab PO SCH (10:00)
[2018-02-19] MEDS ORDERED: POLYETHYLENE GLYCOL 3350 17 GM/Dose PACKET PO SCH (10:00)
[2018-02-19 11:52] VITALS: TEMP 98.3
[2018-02-19 13:36] VITALS: BP 101/54
--- NOTE | 2018-02-19 16:07 | CP.PCM.DIS ---
Provider - Provider Date of Admission: 02/18/18 17:19 Attending physician: Jan Loera MD Primary care physician: NO FAMILY PROVIDER Consults: Cardiology: Dr. Flores Neurology: Dr. Whitlock Time Spent in preparation of Discharge (in minutes): 40 Diagnosis - Discharge Diagnosis (1) Acute kidney injury Status: Acute Priority: Low (2) CHF (congestive heart failure) Status: Acute Priority: High (3) Cardiac arrest Status: Acute Priority: High (4) Myocardial infarction, posterior wall Status: Acute Priority: High (5) Seizures Status: Acute Priority: High (6) Hyperthyroidism Status: Chronic Priority: Medium (7) Hypertension Status: Chronic Priority: High Hospital Course - Lab Results Lab Results: Most Recent Lab Values WBC 7.8 10^3/ul (4.5-11.0) 02/19/18 05:45 RBC 3.56 10^6/uL (3.5-6.1) 02/19/18 05:45 Hgb 10.3 g/dL (14.0-18.0) L 02/19/18 05:45 Hct 30.9 % (42.0-52.0) L 02/19/18 05:45 MCV 86.8 fl (80.0-105.0) 02/19/18 05:45 MCH 28.9 pg (25.0-35.0) 02/19/18 05:45 MCHC 33.3 g/dl (31.0-37.0) 02/19/18 05:45 RDW 13.8 % (11.5-14.5) 02/19/18 05:45 Plt Count 357 10^3/uL (120.0-450.0) 02/19/18 05:45 MPV 9.3 fl (7.0-11.0) 02/19/18 05:45 Gran % 40.1 % (50.0-68.0) L 02/19/18 05:45 Lymph % (Auto) 41.3 % (22.0-35.0) H 02/19/18 05:45 [place] % (Auto) 15.3 % (1.0-6.0) H 02/19/18 05:45 Eos % (Auto) 2.7 % (1.5-5.0) 02/19/18 05:45 Baso % (Auto) 0.6 % (0.0-3.0) 02/19/18 05:45 Gran # 3.14 (1.4-6.5) 02/19/18 05:45 Lymph # (Auto) 3.2 (1.2-3.4) 02/19/18 05:45 [place] # (Auto) 1.2 (0.1-0.6) H 02/19/18 05:45 Eos # (Auto) 0.2 (0.0-0.7) 02/19/18 05:45 Baso # (Auto) 0.05 K/mm3 (0.0-2.0) 02/19/18 05:45 Sodium 144 mmol/L (132-148) 02/19/18 05:45 Potassium 4.1 mmol/L (3.6-5.0) 02/19/18 05:45 Chloride 105 mmol/L (98-107) 02/19/18 05:45 Carbon Dioxide 28 mmol/L (21-33) 02/19/18 05:45 Anion Gap 15 (10-20) 02/19/18 05:45 BUN 12 mg/dL (7-21) 02/19/18 05:45 Creatinine 0.7 mg/dl (0.8-1.5) L 02/19/18 05:45 Est GFR ( Amer) > 60 02/19/18 05:45 Est GFR (Non-Af Amer) > 60 02/19/18 05:45 POC Glucose (mg/dL) 105 mg/dL (65-110) 02/19/18 11:14 Random Glucose 110 mg/dL (70-110) 02/19/18 05:45 Calcium 8.6 mg/dL (8.4-10.5) 02/19/18 05:45 Magnesium 2.0 mg/dL (1.7-2.2) 02/19/18 05:45 Total Bilirubin 0.6 mg/dL (0.2-1.3) 02/19/18 05:45 AST 50 U/L (17-59) 02/19/18 05:45 ALT 51 U/L (7-56) 02/19/18 05:45 Alkaline Phosphatase 93 U/L (38-126) 02/19/18 05:45 Total Protein 6.9 g/dL (5.8-8.3) 02/19/18 05:45 Albumin 3.4 g/dL (3.0-4.8) 02/19/18 05:45 Globulin 3.6 gm/dL 02/19/18 05:45 Albumin/Globulin Ratio 1.0 (1.1-1.8) L 02/19/18 05:45 Free T4 5.02 ng/dL (0.78-2.19) H 02/19/18 05:45 TSH 3rd Generation < 0.02 mIU/mL (0.46-4.68) L 02/19/18 05:45 - Hospital Course Hospital Course: Mr Armenta, 57 M, heavy smoker, with PMH of CAD s/P CABG , HTN, hypothyroidism , had Vfib arrest in the field, was coded for about 10 mins and Intubated. Patient is s/p hypothermic protocol and SP rewarming. Echo showed EF initially at 25% on coreg/Diovan/Spironolactone. Patient was extubated after a week of intubation, and downgraded to telemetry. Mental status is improved. He developed seizure possibly from anoxic brain injury and was placed on antiepileptic meds. Patient underwent cardiac catherization on 02/15, which showed severe left main and triple vessel disease, patent grafts (patent SVBG to RCA and OM, patent PADILLA to LAD), severe LV systolic dysfunction. He received a drug eluting stent at the left main. His LVEF ~ 35%. He was transferred to [facility] for AICD placement. Now he transferred back to [facility] after the AICD placement. During the night patient did well showing signs that he tolerated the AICD placement. Overnight strips were reviewed and revealed NSR through the night. Patient was seen and examined at bedside today in no acute distress. Patient offered no complaints and was seen walking around the room without the aid of someone else. Patient is aware that he must continue to refrain from cigarette smoking. Patient was evaluated by physical therapy which recommended home with services. Patient was in agreement with plan for discharged as well as instructions to take medications and follow up with his appointments. Patient will remain on anti-epileptic therapy for at least 6 months considering the anoxic brain injury he had originally endured. Case discussed and reviewed with Dr. Luz Maria Burt PGY1 Discharge Exam - Head Exam Head Exam: ATRAUMATIC, NORMAL INSPECTION, NORMOCEPHALIC - Eye Exam Eye Exam: EOMI, Normal appearance - Neck Exam Neck exam: Normal Inspection - Respiratory Exam Respiratory Exam: Clear to PA & Lateral, UNREMARKABLE. absent: Rales, Rhonchi, Wheezes - Cardiovascular Exam Cardiovascular Exam: REGULAR RHYTHM, +S1, +S2 - GI/Abdominal Exam GI & Abdominal Exam: Normal Bowel Sounds, Unremarkable - Extremities Exam Extremities exam: normal inspection - Back Exam Back exam: NORMAL INSPECTION - Neurological Exam Neurological exam: Alert, Oriented x3 - Psychiatric Exam Psychiatric exam: Normal Affect, Normal Mood - Skin Skin Exam: Normal Color, Warm Discharge Plan - Discharge Medications Prescriptions: Aspirin [Aspirin Chewable] 81 mg PO DAILY #30 chew Atorvastatin [Lipitor] 40 mg PO DIN #30 tab Carvedilol [Coreg] 25 mg PO BID #60 tab Clopidogrel [Plavix] 75 mg PO DAILY #30 tab Divalproex [Depakote Sprinkles] 1,000 mg PO Q12 #60 ecc Furosemide [Lasix] 40 mg PO DAILY #30 tab hydrALAZINE [Apresoline] 25 mg PO TID #90 tab Levetiracetam [Roweepra] 1,500 mg PO Q12 #60 tablet Methimazole 10 mg PO DAILY #30 tablet Spironolactone [Aldactone] 25 mg PO DAILY #30 tab Valsartan [Diovan] 320 mg PO DAILY #30 tab - Follow Up Plan Condition: GOOD Disposition: HOME/ ROUTINE Instructions: Heart Failure, Adult, Automatic Cardioverter Defibrillator Implantation, Heart Healthy Diet, Quitting Smoking Additional Instructions: 1.Please follow up with a PMD from the list provided to establish primary care within 3-5 days. 2.Please make a follow up appointment with Dr. Flores within 1 week. 3.Please make a follow u appointment with Dr. Pacheco within 2 weeks. 4.Continue to refrain from smoking. 5.Fill and take medications as prescribed. 6. If symptoms occur again, go to the nearest emergency room. Referrals: Jus Flores MD [Staff Provider] - Laureano Pacheco MD [Staff Provider] -
[2018-02-19 16:21] VITALS: PULSE 67
== END 2018-02-19 16:28 | disposition home or self-care (01) | DRG 281 ==
LOC: 2RSO 17:19
PROVIDERS: ADMIT Internal Medicine; ATTEND Internal Medicine
DX: I49.01 Ventricular fibrillation (principal); I21.29 ST elevation (STEMI) myocardial infarction involving other sites; G93.1 Anoxic brain damage, not elsewhere classified; I50.20 Unspecified systolic (congestive) heart failure; N17.9 Acute kidney failure, unspecified; I46.2 Cardiac arrest due to underlying cardiac condition; Z95.810 Presence of automatic (implantable) cardiac defibrillator; I25.10 Atherosclerotic heart disease of native coronary artery without angina pectoris; I11.0 Hypertensive heart disease with heart failure; F17.210 Nicotine dependence, cigarettes, uncomplicated; I25.5 Ischemic cardiomyopathy; E03.9 Hypothyroidism, unspecified; E05.90 Thyrotoxicosis, unspecified without thyrotoxic crisis or storm; E11.9 Type 2 diabetes mellitus without complications; K28.9 Gastrojejunal ulcer, unspecified as acute or chronic, without hemorrhage or perforation; K59.00 Constipation, unspecified; R56.9 Unspecified convulsions; Z95.1 Presence of aortocoronary bypass graft; Z80.1 Family history of malignant neoplasm of trachea, bronchus and lung

== ENCOUNTER 2018-10-18 07:16 | Outpatient (CLI) | payer OTHER | END 2018-10-19 07:17 | disposition home or self-care (01) | LOC: RAD 07:16 | DX: E05.90 Thyrotoxicosis, unspecified without thyrotoxic crisis or storm (principal) ==

== ENCOUNTER 2018-12-24 09:46 | Outpatient (CLI) | payer OTHER | END 2018-12-24 09:47 | disposition home or self-care (01) | LOC: LAB 09:46 ==

== ENCOUNTER 2019-01-06 10:01 | Outpatient (CLI) | payer OTHER | END 2019-01-06 10:02 | disposition home or self-care (01) | LOC: RAD 10:01 | DX: E05.20 Thyrotoxicosis with toxic multinodular goiter without thyrotoxic crisis or storm (principal) ==

== ENCOUNTER 2019-01-19 10:22 | Observation (INO) | payer OTHER ==
[2019-01-19 10:25] VITALS: BMI 24.3
--- NOTE | 2019-01-19 10:51 | ED PDOC ---
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 Patient reports pain is non-reproducible and that it radiates to jaw. States he took morning medications, including baby aspirin, and vomited once. Denies any current chest pain here in the ER. Patient denies any other complaints at this time. Of note, patient had an admission 01/2018 where he was V-fib, coded and had his pacemaker/defibrillator replaced. Also, patient mentions last stress test was performed last year. PMD: Dr. Phillips Supervisor Pleating: Dr. Pina Past Medical History - Provider Review Nursing Documentation Reviewed: Yes - Infectious Disease Hx of Infectious Diseases: None - Cardiac Hx Cardiac Disorders: Yes (s/p CABG) Hx Hypertension: Yes - Pulmonary Hx Respiratory Disorders: No - Neurological Hx Neurological Disorder: No - HEENT Hx HEENT Disorder: No - Renal Hx Renal Disorder: No - Endocrine/Metabolic Hx Hypothyroidism: Yes - Hematological/Oncological Hx Blood Disorders: No - Integumentary Hx Dermatological Disorder: Yes Other/Comment: healed surgical scar inner left ankle - Musculoskeletal/Rheumatological Hx Falls: No - Gastrointestinal Hx Gastrointestinal Disorders: Yes (obese) - Genitourinary/Gynecological Hx Genitourinary Disorders: No - Psychiatric Hx Substance Use: No - Surgical History Hx Orthopedic Surgery: Yes (left ankle has hardware, years ago) Other/Comment: right jugular triple lumen cathetr inserted today - Anesthesia Hx Anesthesia: Yes Hx Anesthesia Reactions: No Family/Social History - Physician Review Nursing Documentation Reviewed: Yes Family/Social History: No Known Family HX Smoking Status: Heavy Smoker > 10 Cigarettes Daily Hx Alcohol Use: No Hx Substance Use: No Allergies/Home Meds Allergies/Adverse Reactions: Allergies No Known Allergies Allergy (Verified 02/04/18 04:41) Home Medications: Home Meds Medication Instructions Recorded Confirmed Pantoprazole [Protonix EC Tab] 40 mg PO BID 02/18/18 02/18/18 Review of Systems - Physician Review All systems were reviewed & negative as marked: Yes - Review of Systems Constitutional: absent: Fevers Cardiovascular: Chest Pain (radiating to jaw) Physical Exam Pulse: Bradycardic Mental Status: Positive for: Alert and Oriented X 3 - Systems Exam Head: Present: Atraumatic, Normocephalic Pupils: Present: PERRL Extroacular Muscles: Present: EOMI Conjunctiva: Present: Normal Mouth: Present: Moist Mucous Membranes Neck: Present: Normal Range of Motion Respiratory/Chest: Present: Clear to Auscultation, Good Air Exchange, Other (palpable defribillator to left-side chest; sternotomy scar present). No: Respiratory Distress, Accessory Muscle Use Cardiovascular: Present: Bradycardic Abdomen: No: Tenderness, Distention, Peritoneal Signs Back: Present: Normal Inspection Upper Extremity: Present: Normal Inspection. No: Cyanosis, Edema Lower Extremity: Present: Normal Inspection. No: Edema Neurological: Present: GCS=15, CN II-XII Intact, Speech Normal Skin: Present: Warm, Dry, Normal Color. No: Rashes Psychiatric: Present: Alert, Oriented x 3, Normal Insight, Normal Concentration Medical Decision Making ED Course and Treatment: 01/19/19 10:52 Impression: 58 year old male with chest pain and 1 episode of vomiting. HEART Score: 5 Plan: -- Labs -- Chest X-ray -- Urinalysis -- Zofran --Insulin --IV Fluids --Robatussin w/ codeine -- Reassess and disposition Progress Notes: 01/19/19 11:45 Labs reviewed with negative troponin and unremarkable chemistries aside from hyperglycemia of 414. No anion gap noted. Insulin and saline ordered. Discussed clinical condition with Dr. Manning(cardiology) who based on patient's clincal history and HEART score, is in agreement with patient to be observed with troponins cycled. Call placed to Dr. Fallon(hospitalist). 01/19/19 11:[address] Fallon who accepts patient onto hospitalist service. - Lab Interpretations Lab Results: 01/19/19 10:45 01/19/19 10:45 Lab Results 01/19/19 10:45: Sodium 137, Potassium 4.1, Chloride 101, Carbon Dioxide 26, Anion Gap 14, BUN 12, Creatinine 0.7 L, Est GFR ( Amer) > 60, Est GFR (Non-Af Amer) > 60, Random Glucose 414 H* D, Calcium 9.4, Magnesium 1.7, Total Bilirubin 0.9, AST 28, ALT 38, Alkaline Phosphatase 79, Troponin I < 0.01 D, Total Protein 7.3, Albumin 4.1, Globulin 3.2, Albumin/Globulin Ratio 1.3 01/19/19 10:45: PT 12.7 H, INR 1.12, APTT 35.0 01/19/19 10:45: WBC 7.1, RBC 4.48, Hgb 12.4 L D, Hct 36.4 L, MCV 81.3 D, MCH 27.7, MCHC 34.1, RDW 13.3, Plt Count 197, MPV 10.1, Neut % (Auto) 68.5 H, Lymph % (Auto) 18.2 L, [place] % (Auto) 10.4 H, Eos % (Auto) 2.3, Baso % (Auto) 0.6, Lymph # (Auto) 1.3, [place] # (Auto) 0.7 H, Eos # (Auto) 0.2, Baso # (Auto) 0.04, Absolute Neuts (auto) 4.86 I have reviewed the lab results: Yes - RAD Interpretation Radiology Orders: 01/19/19 10:27 CHEST PORTABLE [RAD] Stat - Medication Orders Current Medication Orders: Discontinued Medications Ondansetron HCl (Zofran Inj) 4 mg IVP STAT STA Stop: 01/19/19 10:33 - Scribe Statement The provider has reviewed the documentation as recorded by the Jeannine Ruiz Provider Scribe Attestation: All medical record entries made by the Jeannine were at my direction and personally dictated by me. I have reviewed the chart and agree that the record accurately reflects my personal performance of the history, physical exam, medical decision making, and the department course for this patient. I have also personally directed, reviewed, and agree with the discharge instructions and disposition. Disposition/Present on Arrival - Present on Arrival History of DVT/PE: No History of Uncontrolled Diabetes: No Urinary Catheter: Yes (inserted in ed) History Surgical Site Infection Following: None - Disposition
[2019-01-19 10:54] LABS: BASO # 0.04 K/mm3 (0.0-2.0); BASO % 0.6 % (0.0-3.0); EOS # 0.2 (0.0-0.7); EOS % 2.3 % (1.5-5.0); HEMOGLOBIN 12.4 g/dL (14.0-18.0); LYMPH # 1.3 (1.2-3.4); LYMPH % 18.2 % (22.0-35.0); MEAN CELL VOLUME 81.3 fl (80.0-105.0); MEAN CORPUSCULAR HEMOGLOBIN 27.7 pg (25.0-35.0); MEAN CORPUSCULAR HGB CONC 34.1 g/dl (31.0-37.0); MEAN PLATELET VOLUME 10.1 fl (7.0-11.0); MONO # 0.7 (0.1-0.6); MONO % 10.4 % (1.0-6.0); RBC 4.48 10^6/uL (3.5-6.1); RED CELL DISTRIBUTION WIDTH 13.3 % (11.5-14.5); WHITE BLOOD COUNT 7.1 10^3/uL (4.5-11.0)
[2019-01-19 11:06] LABS: INR 1.12; PROTHROMBIN TIME 12.7 SECONDS (9.4-12.5)
[2019-01-19 11:16] LABS: ALB/GLOB RATIO 1.3 (1.1-1.8); ALBUMIN 4.1 g/dL (3.0-4.8); ALT/SGPT 38 U/L (7-56); AST/SGOT 28 U/L (17-59); BLOOD UREA NITROGEN 12 mg/dL (7-21); CALCIUM 9.4 mg/dL (8.4-10.5); GFR NON-AFRICAN AMERICAN > 60
[2019-01-19 11:17] LABS: TROPONIN I < 0.01 ng/mL
[2019-01-19] MEDS ORDERED: Insulin Regular 1 UNITS/0.01 ML ML SC ONE (11:39)
[2019-01-19] MEDS ORDERED: Sodium Chloride 0.9% 1,000 ML IV STA (11:56)
[2019-01-19 13:36] LABS: URINE BILIRUBIN NEGATIVE (NEGATIVE); URINE BLOOD NEGATIVE (NEGATIVE); URINE GLUCOSE (UA) >=1000 mg/dL (NEGATIVE); URINE LEUKOCYTE ESTERASE NEGATIVE Leu/uL (NEGATIVE); URINE PROTEIN NEGATIVE mg/dL (<30 mg/dL); URINE UROBILINOGEN 0.2 E.U./dL (<1 E.U./dL)
[2019-01-19 13:40] LABS: URINE APPEARANCE CLEAR (CLEAR); URINE COLOR YELLOW (YELLOW)
[2019-01-19] MEDS ORDERED: Dextrose 50% SYRINGE Inj (50 ml) IV PRN (13:45)
--- NOTE | 2019-01-19 13:50 | CP.PCM.HP ---
<Jethro Martinez - Last Filed: 01/19/19 13:33> History of Present Illness - History of Present Illness History of Present Illness: Jethro Martinez, PGY-1, Internal Medicine History and Physical for Dr. Fallon 58 year old male with past medical history of hypertension, CAD, [place] s/p CABG in 2008 and 1 left main stent in 2018, congestive heart failure with last LVEF of 23% in 2018, hyperlipidemia presented with chest pressure that started at 7:00 this morning. He reported associated dizziness, jaw numbness, right arm pain, 1 episode of nonbloody, nonbilious vomitus, and 1 episode of brown diarrhea today. In addition, at bedside noted that he was pale at home. He reported no shortness of breath. Exacerbating and remitting factors were denied. He also noted that dizziness had no exacerbating or remitting factors and has been eating well generally but had not had anything to eat today. His last stress test was in 2018 after he had ventricular fibrillation arrest. His last catheterization was in 01/2018 with 1 stent placed in left main stent and patent arterial and vein grafts noted. 12-point ROS was unremarkable except for what was mentioned above. PMH: as stated above PSH: CABG 2008, left ankle surgery in FMHx: Grandmother: Diabetes SHx: quit smoking 1 year ago. smoked 1 PPD for 40 years. denies alcohol and recreational drug use Allergies: NKDA PMD: Dr. Phillips Ins: Medicaid Pharmacy: [facility] on . Confirmed meds Last picked up in 11/2018 Carvedilol 25 mg BID Atorvastatin 40 mg daily Spirinolactone 25 mg daily Plavix 75 mg daily Lasix 40 mg daily Olmesartan 40 mg daily Methimazole 10 mg daily Present on Admission - Present on Admission Any Indicators Present on Admission: No Review of Systems - Review of Systems Review of Systems: except for what was mentioned above Past Patient History - Infectious Disease Hx of Infectious Diseases: None - Past Social History Smoking Status: Heavy Smoker > 10 Cigarettes Daily - CARDIAC Hx Cardiac Disorders: Yes (s/p CABG) Hx Hypertension: Yes - PULMONARY Hx Respiratory Disorders: No - NEUROLOGICAL Hx Neurological Disorder: No - HEENT Hx HEENT Problems: No - RENAL Hx Chronic Kidney Disease: No - ENDOCRINE/METABOLIC Hx Hypothyroidism: Yes - HEMATOLOGICAL/ONCOLOGICAL Hx Blood Disorders: No - INTEGUMENTARY Hx Dermatological Problems: Yes Other/Comment: healed surgical scar inner left ankle - MUSCULOSKELETAL/RHEUMATOLOGICAL Hx Falls: No - GASTROINTESTINAL Hx Gastrointestinal Disorders: Yes (obese) - GENITOURINARY/GYNECOLOGICAL Hx Genitourinary Disorders: No - PSYCHIATRIC Hx Substance Use: No - SURGICAL HISTORY Hx Orthopedic Surgery: Yes (left ankle has hardware, years ago) Other/Comment: right jugular triple lumen cathetr inserted today - ANESTHESIA Hx Anesthesia: Yes Hx Anesthesia Reactions: No Meds Allergies/Adverse Reactions: Allergies Allergy/AdvReac Type Severity Reaction Status Date / Time No Known Allergies Allergy Verified 02/04/18 04:41 Physical Exam - Constitutional Appears: Well, Non-toxic, No Acute Distress - Head Exam Head Exam: ATRAUMATIC, NORMAL INSPECTION, NORMOCEPHALIC - Eye Exam Eye Exam: EOMI, PERRL - ENT Exam ENT Exam: Mucous Membranes Moist - Neck Exam Neck exam: Positive for: Full Rom, Normal Inspection - Respiratory Exam Respiratory Exam: Clear to Auscultation Bilateral, NORMAL BREATHING PATTERN. absent: Rales, Rhonchi, Wheezes - Cardiovascular Exam Cardiovascular Exam: REGULAR RHYTHM, RRR, +S1, +S2. absent: Clicks, Gallop, Rubs - GI/Abdominal Exam GI & Abdominal Exam: Normal Bowel Sounds, Soft. absent: Distended, Firm, Guarding, Tenderness - Extremities Exam Extremities exam: Positive for: full ROM, normal inspection. Negative for: joint swelling Additional comments: darkening of bilateral lower extremities - Neurological Exam Neurological exam: Alert, CN II-XII Intact, Normal Gait, Oriented x3 - Psychiatric Exam Psychiatric exam: Normal Affect, Normal Mood - Skin Skin Exam: Dry, Intact Results - Vital Signs Recent Vital Signs: Last Vital Signs Temp 98.2 F 01/19/19 11:01 Pulse 60 01/19/19 12:57 Resp 18 01/19/19 12:57 BP 129/76 01/19/19 12:57 Pulse Ox 98 01/19/19 12:57 - Labs Result Diagrams: 01/19/19 10:45 01/19/19 10:45 Labs: Laboratory Results - last 24 hr 01/19/19 01/19/19 01/19/19 10:45 10:45 10:45 WBC 7.1 RBC 4.48 Hgb 12.4 L D Hct 36.4 L MCV 81.3 D MCH 27.7 MCHC 34.1 RDW 13.3 Plt Count 197 MPV 10.1 Neut % (Auto) 68.5 H Lymph % (Auto) 18.2 L [place] % (Auto) 10.4 H Eos % (Auto) 2.3 Baso % (Auto) 0.6 Lymph # (Auto) 1.3 [place] # (Auto) 0.7 H Eos # (Auto) 0.2 Baso # (Auto) 0.04 Absolute Neuts (auto) 4.86 PT 12.7 H INR 1.12 APTT 35.0 Sodium 137 Potassium 4.1 Chloride 101 Carbon Dioxide 26 Anion Gap 14 BUN 12 Creatinine 0.7 L Est GFR ( Amer) > 60 Est GFR (Non-Af Amer) > 60 POC Glucose (mg/dL) Random Glucose 414 H* D Calcium 9.4 Magnesium 1.7 Total Bilirubin 0.9 AST 28 ALT 38 Alkaline Phosphatase 79 Troponin I < 0.01 D Total Protein 7.3 Albumin 4.1 Globulin 3.2 Albumin/Globulin Ratio 1.3 01/19/19 12:50 WBC RBC Hgb Hct MCV MCH MCHC RDW Plt Count MPV Neut % (Auto) Lymph % (Auto) [place] % (Auto) Eos % (Auto) Baso % (Auto) Lymph # (Auto) [place] # (Auto) Eos # (Auto) Baso # (Auto) Absolute Neuts (auto) PT INR APTT Sodium Potassium Chloride Carbon Dioxide Anion Gap BUN Creatinine Est GFR ( Amer) Est GFR (Non-Af Amer) POC Glucose (mg/dL) 324 H Random Glucose Calcium Magnesium Total Bilirubin AST ALT Alkaline Phosphatase Troponin I Total Protein Albumin Globulin Albumin/Globulin Ratio Assessment & Plan - Assessment and Plan (Free Text) Assessment: 58 year old male with past medical history of hypertension, CAD, [place] s/p CABG in 2009 and 1 left main stent in 2018, congestive heart failure with last LVEF of 23% in 2018, hyperlipidemia presented with chest pressure that started at 7:00 this morning. Patient was admitted for chest pain with ACS rule out. Plan: Chest pain with ACS rule out -EKG: atrial pacemaker with HR: 60 -Tropx1 negative -Follow up troponinx2 -Follow up TSH, lipid panel, HgbA1c -Started home aspirin, plavix, lipitor, coreg, losartan (equivalent dose of olmesartan) -Dr. Pina, Cardiology, consulted for further recommendations. Systolic congestive heart failure -Last EF in 2018 was 23% -Follow up BNP -Ordered echocardiogram for further evaluation -Started coreg, losartan, spirinolactone, and lasix 40 PO daily Dizziness 2/2 to possible orthostatic hypotension -Follow up orthostatic vitals Hyperglycemia likely 2/2 to new Diabetes Mellitus -Glucose on admission: 414 -Follow up HgbA1c -Started medium sliding scale insulin -Accuchecks ACHS Hyperthyroidism -Follow up TSH -Restarted home tapazole Hypertension -Started home coreg, losartan Hyperlipidemia -Follow up lipid panel -Started home lipitor GI prophylaxis: protonix DVT prophylaxis: lovenox Patient plan discussed with Dr. Fallon. - Date & Time Date: 01/19/19 Time: 13:51 <Rakesh Fallon - Last Filed: 01/19/19 15:59> Results - Vital Signs Recent Vital Signs: Last Vital Signs Temp 98.0 F 01/19/19 14:31 Pulse 73 01/19/19 14:31 Resp 19 01/19/19 14:31 BP 131/73 01/19/19 13:50 Pulse Ox 99 01/19/19 14:31 - Labs Result Diagrams: 01/19/19 10:45 01/19/19 10:45 Labs: Laboratory Results - last 24 hr 01/19/19 01/19/19 01/19/19 10:45 10:45 10:45 WBC 7.1 RBC 4.48 Hgb 12.4 L D Hct 36.4 L MCV 81.3 D MCH 27.7 MCHC 34.1 RDW 13.3 Plt Count 197 MPV 10.1 Neut % (Auto) 68.5 H Lymph % (Auto) 18.2 L [place] % (Auto) 10.4 H Eos % (Auto) 2.3 Baso % (Auto) 0.6 Lymph # (Auto) 1.3 [place] # (Auto) 0.7 H Eos # (Auto) 0.2 Baso # (Auto) 0.04 Absolute Neuts (auto) 4.86 PT 12.7 H INR 1.12 APTT 35.0 Sodium 137 Potassium 4.1 Chloride 101 Carbon Dioxide 26 Anion Gap 14 BUN 12 Creatinine 0.7 L Est GFR ( Amer) > 60 Est GFR (Non-Af Amer) > 60 POC Glucose (mg/dL) Random Glucose 414 H* D Calcium 9.4 Phosphorus Magnesium 1.7 Total Bilirubin 0.9 AST 28 ALT 38 Alkaline Phosphatase 79 Troponin I < 0.01 D NT-Pro-B Natriuret Pep Total Protein 7.3 Albumin 4.1 Globulin 3.2 Albumin/Globulin Ratio 1.3 Triglycerides Cholesterol LDL Cholesterol Direct HDL Cholesterol TSH 3rd Generation Urine Color Urine Appearance Urine pH Ur Specific [place] Urine Protein Urine Glucose (UA) Urine Ketones Urine Blood Urine Nitrate Urine Bilirubin Urine Urobilinogen Ur Leukocyte Esterase 01/19/19 01/19/19 01/19/19 12:50 13:08 14:31 WBC RBC Hgb Hct MCV MCH MCHC RDW Plt Count MPV Neut % (Auto) Lymph % (Auto) [place] % (Auto) Eos % (Auto) Baso % (Auto) Lymph # (Auto) [place] # (Auto) Eos # (Auto) Baso # (Auto) Absolute Neuts (auto) PT INR APTT Sodium Potassium Chloride Carbon Dioxide Anion Gap BUN Creatinine Est GFR ( Amer) Est GFR (Non-Af Amer) POC Glucose (mg/dL) 324 H Random Glucose Calcium Phosphorus 3.4 Magnesium 1.9 Total Bilirubin AST ALT Alkaline Phosphatase Troponin I < 0.01 NT-Pro-B Natriuret Pep 283 Total Protein Albumin Globulin Albumin/Globulin Ratio Triglycerides 123 Cholesterol 92 L LDL Cholesterol Direct 47 HDL Cholesterol 30 TSH 3rd Generation Urine Color Yellow Urine Appearance Clear Urine pH 6.0 Ur Specific [place] 1.010 Urine Protein Negative Urine Glucose (UA) >=1000 Urine Ketones Negative Urine Blood Negative Urine Nitrate Negative Urine Bilirubin Negative Urine Urobilinogen 0.2 Ur Leukocyte Esterase Negative 01/19/19 14:31 WBC RBC Hgb Hct MCV MCH MCHC RDW Plt Count MPV Neut % (Auto) Lymph % (Auto) [place] % (Auto) Eos % (Auto) Baso % (Auto) Lymph # (Auto) [place] # (Auto) Eos # (Auto) Baso # (Auto) Absolute Neuts (auto) PT INR APTT Sodium Potassium Chloride Carbon Dioxide Anion Gap BUN Creatinine Est GFR ( Amer) Est GFR (Non-Af Amer) POC Glucose (mg/dL) Random Glucose Calcium Phosphorus Magnesium Total Bilirubin AST ALT Alkaline Phosphatase Troponin I NT-Pro-B Natriuret Pep Total Protein Albumin Globulin Albumin/Globulin Ratio Triglycerides Cholesterol LDL Cholesterol Direct HDL Cholesterol TSH 3rd Generation < 0.02 L Urine Color Urine Appearance Urine pH Ur Specific [place] Urine Protein Urine Glucose (UA) Urine Ketones Urine Blood Urine Nitrate Urine Bilirubin Urine Urobilinogen Ur Leukocyte Esterase Attending/Attestation - Attestation I have personally seen and examined this patient.: Yes I have fully participated in the care of the patient.: Yes I have reviewed all pertinent clinical information: Yes Notes (Text): 01/19/19 15:54 58 year old male with past medical history of CAD/[place] s/p CABG s/p stent, systolic CHF, hypertension, dyslipidemia, diabetes and hyperthyroidism who presents with complaint of chest pain radiating to right jaw and right arm. Will admit and obtain serial cardiac enzymes to rule out ACS. Cardiology evaluation is requested and echocardiogram is ordered. Resume home medications for CAD including aspirin, plavix, statin and coreg. Continue with tapazole for hypertension. Patient also has significant hyperglycemia on admission; not on any medications at home for diabetes. Will continue with insulin ss and obtain hemoglobin A1c. Rakesh Fallon MD Hospitalist.
[2019-01-19 14:55] LABS: HDL CHOLESTEROL 30 mg/dL (29-60)
[2019-01-19 15:07] LABS: LDL CHOLESTEROL 47 mg/dL (0-129)
[2019-01-19 15:08] LABS: B-TYPE NATRIURETIC PEPTIDE 283 pg/mL (0-450); TROPONIN I < 0.01 ng/mL
--- NOTE | 2019-01-19 15:16 | RAD ---
Date of service: 01/19/2019 HISTORY: chest pain COMPARISON: 02/12/2018 TECHNIQUE: 1 view obtained. FINDINGS: LUNGS: No active pulmonary disease. PLEURA: No significant pleural effusion identified, no pneumothorax apparent. CARDIOVASCULAR: No aortic atherosclerotic calcification present. Normal cardiac size. No pulmonary vascular congestion. OSSEOUS STRUCTURES: Sternal wires VISUALIZED UPPER ABDOMEN: Normal. OTHER FINDINGS: Pacemaker IMPRESSION: No active disease.
[2019-01-19] MEDS: Insulin Reg-MEDIUM-Coverage SC SCH ×2 (17:42→21:59)
--- NOTE | 2019-01-19 19:32 | CARD ---
APPROVED REPORT Date of service: 01/19/2019 EKG Measurement Heart [id number] <Conclusion> Electronic atrial pacemaker Possible Inferior infarct, age undetermined Abnormal ECG
[2019-01-19] MEDS ORDERED: Pneumococcal 23-Valent Vaccine IM ONE (22:39)
[2019-01-20 00:22] VITALS: RESP 20
[2019-01-20 05:57] VITALS: O2SAT 98
[2019-01-20 06:37] LABS: BASO # 0.04 K/mm3 (0.0-2.0); BASO % 0.6 % (0.0-3.0); EOS # 0.3 (0.0-0.7); EOS % 4.4 % (1.5-5.0); HEMOGLOBIN 11.7 g/dL (14.0-18.0); LYMPH # 1.8 (1.2-3.4); LYMPH % 26.9 % (22.0-35.0); MEAN CELL VOLUME 81.5 fl (80.0-105.0); MEAN CORPUSCULAR HEMOGLOBIN 27.7 pg (25.0-35.0); MEAN PLATELET VOLUME 9.8 fl (7.0-11.0); MONO # 0.7 (0.1-0.6); MONO % 9.6 % (1.0-6.0); RBC 4.22 10^6/uL (3.5-6.1); RED CELL DISTRIBUTION WIDTH 13.3 % (11.5-14.5); WHITE BLOOD COUNT 6.8 10^3/uL (4.5-11.0)
[2019-01-20 06:50] LABS: INR 1.18; PARTIAL THROMBOPLASTIN TIME 31.4 Seconds (26.9-38.3); PROTHROMBIN TIME 13.3 SECONDS (9.4-12.5)
[2019-01-20 06:57] LABS: ALB/GLOB RATIO 1.2 (1.1-1.8); ALBUMIN 3.7 g/dL (3.0-4.8); ALT/SGPT 34 U/L (7-56); AST/SGOT 24 U/L (17-59); BLOOD UREA NITROGEN 10 mg/dL (7-21); GFR NON-AFRICAN AMERICAN > 60
[2019-01-20] MEDS: Insulin Reg-MEDIUM-Coverage SC SCH ×2 (08:37→12:04)
[2019-01-20] MEDS ORDERED: Enoxaparin 40 mg Syringe SC SCH (10:00)
[2019-01-20] MEDS ORDERED: Pantoprazole 40 mg EC Tab PO SCH (10:00)
[2019-01-20] MEDS ORDERED: Insulin Detemir 100 units/ml Vial (Levemir) SC SCH (10:15)
[2019-01-20 12:26] VITALS: BP 137/65; PULSE 74; TEMP 98.7
--- NOTE | 2019-01-20 15:04 | CP.PCM.DIS ---
<Jethro Martinez - Last Filed: 01/20/19 14:53> Provider - Provider Date of Admission: 01/19/19 11:58 Attending physician: Rakesh Fallon MD Consults: 01/19/19 11:59 Cardiology Consult Stat Comment: Consulting Provider: Bimal Pina Consulting Physician: Bimal Pina Reason for Consult: angina 01/19/19 20:32 Diabetic Education Referral Routine Comment: new diabetic Physician Instructions: Reason For Exam: hyperglycemia 01/19/19 22:39 Inpatient DATA ENTRY Core Measures Referral Routine Comment: angina/hyperglycemis Physician Instructions: Reason For Exam: asses Transition In Care/Readmission Reduction Routine Comment: angina/hyperglycemia Physician Instructions: Reason For Exam: assess Time Spent in preparation of Discharge (in minutes): 60 Hospital Course - Lab Results Lab Results: Most Recent Lab Values WBC 6.8 10^3/uL (4.5-11.0) 01/20/19 06:10 RBC 4.22 10^6/uL (3.5-6.1) 01/20/19 06:10 Hgb 11.7 g/dL (14.0-18.0) L 01/20/19 06:10 Hct 34.4 % (42.0-52.0) L 01/20/19 06:10 MCV 81.5 fl (80.0-105.0) 01/20/19 06:10 MCH 27.7 pg (25.0-35.0) 01/20/19 06:10 MCHC 34.0 g/dl (31.0-37.0) 01/20/19 06:10 RDW 13.3 % (11.5-14.5) 01/20/19 06:10 Plt Count 180 10^3/uL (120.0-450.0) 01/20/19 06:10 MPV 9.8 fl (7.0-11.0) 01/20/19 06:10 Neut % (Auto) 58.5 % (50.0-68.0) 01/20/19 06:10 Lymph % (Auto) 26.9 % (22.0-35.0) 01/20/19 06:10 [place] % (Auto) 9.6 % (1.0-6.0) H 01/20/19 06:10 Eos % (Auto) 4.4 % (1.5-5.0) 01/20/19 06:10 Baso % (Auto) 0.6 % (0.0-3.0) 01/20/19 06:10 Lymph # (Auto) 1.8 (1.2-3.4) 01/20/19 06:10 [place] # (Auto) 0.7 (0.1-0.6) H 01/20/19 06:10 Eos # (Auto) 0.3 (0.0-0.7) 01/20/19 06:10 Baso # (Auto) 0.04 K/mm3 (0.0-2.0) 01/20/19 06:10 Absolute Neuts (auto) 3.96 (1.4-6.5) 01/20/19 06:10 PT 13.3 SECONDS (9.4-12.5) H 01/20/19 06:10 INR 1.18 01/20/19 06:10 APTT 31.4 Seconds (26.9-38.3) 01/20/19 06:10 Sodium 140 mmol/L (132-148) 01/20/19 06:10 Potassium 3.6 mmol/L (3.6-5.0) 01/20/19 06:10 Chloride 104 mmol/L (98-107) 01/20/19 06:10 Carbon Dioxide 26 mmol/L (21-33) 01/20/19 06:10 Anion Gap 12 (10-20) 01/20/19 06:10 BUN 10 mg/dL (7-21) 01/20/19 06:10 Creatinine 0.6 mg/dl (0.8-1.5) L 01/20/19 06:10 Est GFR ( Amer) > 60 01/20/19 06:10 Est GFR (Non-Af Amer) > 60 01/20/19 06:10 POC Glucose (mg/dL) 324 mg/dL (65-110) H 01/19/19 12:50 Random Glucose 212 mg/dL (70-110) H 01/20/19 06:10 Hemoglobin A1c 12.5 % (4.2-6.5) H 01/19/19 14:31 Calcium 9.0 mg/dL (8.4-10.5) 01/20/19 06:10 Phosphorus 4.2 mg/dL (2.5-4.5) 01/20/19 07:00 Magnesium 2.0 mg/dL (1.7-2.2) 01/20/19 07:00 Total Bilirubin 0.7 mg/dL (0.2-1.3) 01/20/19 06:10 AST 24 U/L (17-59) 01/20/19 06:10 ALT 34 U/L (7-56) 01/20/19 06:10 Alkaline Phosphatase 69 U/L (38-126) 01/20/19 06:10 Troponin I < 0.01 ng/mL 01/20/19 02:00 NT-Pro-B Natriuret Pep 283 pg/mL (0-450) 01/19/19 14:31 Total Protein 6.7 g/dL (5.8-8.3) 01/20/19 06:10 Albumin 3.7 g/dL (3.0-4.8) 01/20/19 06:10 Globulin 3.0 gm/dL 01/20/19 06:10 Albumin/Globulin Ratio 1.2 (1.1-1.8) 01/20/19 06:10 Triglycerides 123 mg/dL (35-160) 01/19/19 14:31 Cholesterol 92 mg/dL (130-200) L 01/19/19 14:31 LDL Cholesterol Direct 47 mg/dL (0-129) 01/19/19 14:31 HDL Cholesterol 30 mg/dL (29-60) 01/19/19 14:31 Free T4 3.07 ng/dL (0.78-2.19) H 01/19/19 21:00 Free T3 pg/mL 5.94 pg/mL (2.77-5.27) H 01/19/19 21:00 TSH 3rd Generation < 0.02 mIU/mL (0.46-4.68) L 01/19/19 14:31 Urine Color Yellow (YELLOW) 01/19/19 13:08 Urine Appearance Clear (CLEAR) 01/19/19 13:08 Urine pH 6.0 (4.7-8.0) 01/19/19 13:08 Ur Specific [place] 1.010 (1.005-1.035) 01/19/19 13:08 Urine Protein Negative mg/dL (<30 mg/dL) 01/19/19 13:08 Urine Glucose (UA) >=1000 mg/dL (NEGATIVE) 01/19/19 13:08 Urine Ketones Negative mg/dL (NEGATIVE) 01/19/19 13:08 Urine Blood Negative (NEGATIVE) 01/19/19 13:08 Urine Nitrate Negative (NEGATIVE) 01/19/19 13:08 Urine Bilirubin Negative (NEGATIVE) 01/19/19 13:08 Urine Urobilinogen 0.2 E.U./dL (<1 E.U./dL) 01/19/19 13:08 Ur Leukocyte Esterase Negative Jimmy/uL (NEGATIVE) 01/19/19 13:08 - Hospital Course Hospital Course: Jethro Martinez, PGY-1, Internal Medicine Discharge Summary for Dr. Fallon 58 year old male with past medical history of hypertension, CAD, HI s/p CABG in 2008 and 1 left main stent in 2018, congestive heart failure with last LVEF of 23% in 2018, hyperlipidemia presented with chest pressure that started at 7:00 the morning of admission. He reported dizziness, jaw numbness, right arm pain, 1 episode of NBNB vomitus, and 1 episode of brown diarrhea the day of admission. He had no shortness of breath. Last stress test was 2017 after Ventricular Fibrillation arrest. Last cardiac catheterization was 01/2018 with 1 stent placed in left main and patent arterial and vein grafts noted. Upon admission, EKG shows atrial pacemaker with heart rate of 60, as patient has AICD for congestive heart failure. Chest X ray showed no active disease. Troponinx4 was negative. BNP was unremarkable. Patient was started on home aspirin, plavix, lipitor, coreg, losartan, spirinolactone, lasix. Echocardiogram was done today but official results will be relayed upon follow up appointment with Dr. Pina. Hemoglobin A1c was 12.5. Patient had glucose of 414 on admission which trended down to 100s to 200s, As a result, patient was started on medium sliding scale insulin and levemir 5 U daily. Patient had TSH of <0.02. Free T4 was 3.07 and Free T3 was 5.94. Patient was continued on home tapazole. Lipid panel was unremarkable. Patient was continued on home lipitor Blood pressure was controlled during this admission. Patient was continued on home losartan and coreg Patient was found to be stable and ready for discharge. Patient was told to follow up with PCP within 3-5 days and take all home medications as prescribed. Patient was prescribed lantus 5 U daily and sufficient time was taken to teach him how to administer insulin with help of diabetic educations. Patient was told to follow up with Dr. Pina for stress test and further management. Patient was told to return to the emergency department if he had a new or concerning symptoms. This is a brief summary of the events that occurred during this hospital visit. For more information, please refer to hospital documentation. Discharge diagnoses CAD Systolic congestive heart failure Diabetes mellitus Hyperthyroidism Hypertension Hyperlipidemia - Date & Time of H&P Date of H&P: 01/19/19 Time of H&P: 13:33 Discharge Exam - Head Exam Head Exam: ATRAUMATIC, NORMAL INSPECTION, NORMOCEPHALIC - Eye Exam Eye Exam: EOMI, PERRL - ENT Exam ENT Exam: Mucous Membranes Moist - Respiratory Exam Respiratory Exam: Clear to PA & Lateral, NORMAL BREATHING PATTERN. absent: Rales, Rhonchi, Wheezes - Cardiovascular Exam Cardiovascular Exam: REGULAR RHYTHM, RRR, +S1, +S2. absent: Clicks, Gallop, Rubs - GI/Abdominal Exam GI & Abdominal Exam: Normal Bowel Sounds, Soft. absent: Distended, Firm, Guarding, Tenderness - Extremities Exam Extremities exam: full ROM, normal capillary refill, normal inspection - Neurological Exam Neurological exam: Alert, CN II-XII Intact, Normal Gait, Oriented x3 - Psychiatric Exam Psychiatric exam: Normal Affect, Normal Mood - Skin Skin Exam: Dry, Intact Discharge Plan - Discharge Medications Prescriptions: Insulin Detemir [Levemir] 5 units SC DAILY #1 vial Olmesartan [BenicarNf] 40 mg PO DAILY 30 Days #30 tab - Follow Up Plan Condition: GOOD Disposition: HOME/ ROUTINE Instructions: Type 2 Diabetes, Hyperglycemia, Adult, Diabetes Diet , Blood Glucose Monitoring, The ABCs of Diabetes Additional Instructions: Please follow up with primary care physician within 3-5 days. Please follow up with Dr. Pina within 1 to 2 weeks. Please follow up for stress test as explained by Dr. Pina. Please take all home medications as prescribed. Please return to the emergency department if you have any new or concerning symptoms. Referrals: Arya Phillips MD [Family Provider] - Bimal Pina MD [Staff Provider] - <Rakesh Fallon - Last Filed: 01/20/19 16:26> Provider - Provider Date of Admission: 01/19/19 11:58 Attending physician: Rakesh Fallon MD Consults: 01/19/19 11:59 Cardiology Consult Stat Comment: Consulting Provider: Bimal Pina Consulting Physician: Bimal Pina Reason for Consult: angina 01/19/19 20:32 Diabetic Education Referral Routine Comment: new diabetic Physician Instructions: Reason For Exam: hyperglycemia 01/19/19 22:39 Inpatient DATA ENTRY Core Measures Referral Routine Comment: angina/hyperglycemis Physician Instructions: Reason For Exam: asses Transition In Care/Readmission Reduction Routine Comment: angina/hyperglycemia Physician Instructions: Reason For Exam: assess Hospital Course - Lab Results Lab Results: Most Recent Lab Values WBC 6.8 10^3/uL (4.5-11.0) 01/20/19 06:10 RBC 4.22 10^6/uL (3.5-6.1) 01/20/19 06:10 Hgb 11.7 g/dL (14.0-18.0) L 01/20/19 06:10 Hct 34.4 % (42.0-52.0) L 01/20/19 06:10 MCV 81.5 fl (80.0-105.0) 01/20/19 06:10 MCH 27.7 pg (25.0-35.0) 01/20/19 06:10 MCHC 34.0 g/dl (31.0-37.0) 01/20/19 06:10 RDW 13.3 % (11.5-14.5) 01/20/19 06:10 Plt Count 180 10^3/uL (120.0-450.0) 01/20/19 06:10 MPV 9.8 fl (7.0-11.0) 01/20/19 06:10 Neut % (Auto) 58.5 % (50.0-68.0) 01/20/19 06:10 Lymph % (Auto) 26.9 % (22.0-35.0) 01/20/19 06:10 [place] % (Auto) 9.6 % (1.0-6.0) H 01/20/19 06:10 Eos % (Auto) 4.4 % (1.5-5.0) 01/20/19 06:10 Baso % (Auto) 0.6 % (0.0-3.0) 01/20/19 06:10 Lymph # (Auto) 1.8 (1.2-3.4) 01/20/19 06:10 [place] # (Auto) 0.7 (0.1-0.6) H 01/20/19 06:10 Eos # (Auto) 0.3 (0.0-0.7) 01/20/19 06:10 Baso # (Auto) 0.04 K/mm3 (0.0-2.0) 01/20/19 06:10 Absolute Neuts (auto) 3.96 (1.4-6.5) 01/20/19 06:10 PT 13.3 SECONDS (9.4-12.5) H 01/20/19 06:10 INR 1.18 01/20/19 06:10 APTT 31.4 Seconds (26.9-38.3) 01/20/19 06:10 Sodium 140 mmol/L (132-148) 01/20/19 06:10 Potassium 3.6 mmol/L (3.6-5.0) 01/20/19 06:10 Chloride 104 mmol/L (98-107) 01/20/19 06:10 Carbon Dioxide 26 mmol/L (21-33) 01/20/19 06:10 Anion Gap 12 (10-20) 01/20/19 06:10 BUN 10 mg/dL (7-21) 01/20/19 06:10 Creatinine 0.6 mg/dl (0.8-1.5) L 01/20/19 06:10 Est GFR ( Amer) > 60 01/20/19 06:10 Est GFR (Non-Af Amer) > 60 01/20/19 06:10 POC Glucose (mg/dL) 324 mg/dL (65-110) H 01/19/19 12:50 Random Glucose 212 mg/dL (70-110) H 01/20/19 06:10 Hemoglobin A1c 12.5 % (4.2-6.5) H 01/19/19 14:31 Calcium 9.0 mg/dL (8.4-10.5) 01/20/19 06:10 Phosphorus 4.2 mg/dL (2.5-4.5) 01/20/19 07:00 Magnesium 2.0 mg/dL (1.7-2.2) 01/20/19 07:00 Total Bilirubin 0.7 mg/dL (0.2-1.3) 01/20/19 06:10 AST 24 U/L (17-59) 01/20/19 06:10 ALT 34 U/L (7-56) 01/20/19 06:10 Alkaline Phosphatase 69 U/L (38-126) 01/20/19 06:10 Troponin I < 0.01 ng/mL 01/20/19 02:00 NT-Pro-B Natriuret Pep 283 pg/mL (0-450) 01/19/19 14:31 Total Protein 6.7 g/dL (5.8-8.3) 01/20/19 06:10 Albumin 3.7 g/dL (3.0-4.8) 01/20/19 06:10 Globulin 3.0 gm/dL 01/20/19 06:10 Albumin/Globulin Ratio 1.2 (1.1-1.8) 01/20/19 06:10 Triglycerides 123 mg/dL (35-160) 01/19/19 14:31 Cholesterol 92 mg/dL (130-200) L 01/19/19 14:31 LDL Cholesterol Direct 47 mg/dL (0-129) 01/19/19 14:31 HDL Cholesterol 30 mg/dL (29-60) 01/19/19 14:31 Free T4 3.07 ng/dL (0.78-2.19) H 01/19/19 21:00 Free T3 pg/mL 5.94 pg/mL (2.77-5.27) H 01/19/19 21:00 TSH 3rd Generation < 0.02 mIU/mL (0.46-4.68) L 01/19/19 14:31 Urine Color Yellow (YELLOW) 01/19/19 13:08 Urine Appearance Clear (CLEAR) 01/19/19 13:08 Urine pH 6.0 (4.7-8.0) 01/19/19 13:08 Ur Specific [place] 1.010 (1.005-1.035) 01/19/19 13:08 Urine Protein Negative mg/dL (<30 mg/dL) 01/19/19 13:08 Urine Glucose (UA) >=1000 mg/dL (NEGATIVE) 01/19/19 13:08 Urine Ketones Negative mg/dL (NEGATIVE) 01/19/19 13:08 Urine Blood Negative (NEGATIVE) 01/19/19 13:08 Urine Nitrate Negative (NEGATIVE) 01/19/19 13:08 Urine Bilirubin Negative (NEGATIVE) 01/19/19 13:08 Urine Urobilinogen 0.2 E.U./dL (<1 E.U./dL) 01/19/19 13:08 Ur Leukocyte Esterase Negative Jimmy/uL (NEGATIVE) 01/19/19 13:08 Attending/Attestation - Attestation I have personally seen and examined this patient.: Yes I have fully participated in the care of the patient.: Yes I have reviewed all pertinent clinical information, including history, physical exam and plan: Yes Notes (Text): 01/20/19 16:21 58 year old male with past medical history of CAD/HI s/p CABG s/p stent, systolic CHF, hypertension, dyslipidemia, diabetes and hyperthyroidism who presented with complaint of chest pain radiating to right jaw and right arm. S erial cardiac enzymes were negative and ACS was ruled out. Today his symptoms resolved. He was seen by cardiology who recommended outpatient stress test. Continue with home medications for CAD including aspirin, plavix, statin and coreg. Continue with tapazole for hyperthyroidism. Follow up with weapons officer. Patient also had significant hyperglycemia on admission with an elevated hemoglobin A1c level. He received diabetic education and was and started on levemir. Patient is discharged home to follow up with pmd. Follow up with nurse receptionist for outpatient stress test. Follow up with weapons officer for hyperthyroidism and diabetes. Rakesh Fallon MD Hospitalist.
--- NOTE | 2019-01-21 08:51 | CON ---
DATE: 01/20/2019 CARDIOLOGY CONSULTATION REQUESTING PHYSICIAN: Dr. Fallon. REASON FOR CONSULTATION: Chest pain. HISTORY OF PRESENT ILLNESS: This is a 58-year-old man, well-known to me from recent hospitalization last year, who was admitted with complaints of chest and arm discomfort. He was working on his car yesterday when he felt somewhat nauseated. He had retrosternal chest discomfort radiating to his right shoulder. He went indoors and vomited once and had an episode of diarrheal stool. He felt somewhat weak and according to his , he appeared pale. He was taken to the emergency room. PAST MEDICAL AND SURGICAL HISTORY: He has known coronary artery disease and underwent prior bypass surgery in 2008. He had a ventricular fibrillation arrest last year and cardiac catheterization was performed, stenting of his left main artery was performed at that time. His PADILLA and bypass grafts were patent. A defibrillator was placed as well. He claims compliance with his medications. His past history is known for the problems mentioned above. He has had prior ankle surgery. The patient also has a history of hyperthyroidism. SOCIAL HISTORY: He was a smoker of a pack per day for many years. He quit last year. ALLERGIES: NONE. CURRENT MEDICATIONS: Aspirin, Plavix, Lipitor 40 mg daily, Carvedilol 25 mg b.i.d., spirolactone 25 mg daily, Lasix 40 mg daily, Olmesartan 40 mg daily, methimazole 10 mg daily. FAMILY HISTORY: Both parents were from age-related illness. REVIEW OF SYSTEMS: A 12-point review of systems is notable mainly for the problems mentioned above. He has occasional ankle discomfort. He denies any PND, orthopnea, or edema. He has had no recent defibrillator firings. PHYSICAL EXAMINATION: GENERAL: He is a middle-aged man, who appears comfortable at the present time. VITAL SIGNS: His blood pressure is 136/70 with a pulse of 86 and sinus, respirations are 16. He is afebrile. HEENT: Normocephalic, atraumatic. NECK: Supple. No JVD noted. CHEST: Few scattered rhonchi heard. HEART: PMI displaced laterally with soft tones noted. ABDOMEN: The abdomen is soft, nontender, with normoactive bowel sounds. EXTREMITIES: No clubbing, cyanosis, or edema. SKIN: Warm and dry. PSYCHIATRIC: Normal mood and affect. NEUROLOGIC: Alert and oriented x3; no gross motor or sensory deficits noted. LABORATORY DATA: Potassium 3.6, BUN and creatinine of 10 and 0.6. Glucose is 212; on admission, his glucose was 414. Three sets of cardiac enzymes were negative. White count 6.8, hemoglobin and hematocrit were 11.7 and 34.4. PT/PTT are normal. Hemoglobin A1c is 12.5. DIAGNOSTIC IMAGING: Chest x-ray reveals an enlarged cardiac silhouette with ICD system in place and clear lung cordova. His electrocardiogram reveals atrial pacing, a prior inferior wall myocardial infarction and no acute ST-T abnormalities. IMPRESSION: 1. Chest pain in the setting of nausea, vomiting, and diarrhea with no clear evidence of cardiac ischemia, likely noncardiac in nature. 2. Known coronary artery disease status post prior bypass surgery and left main stenting. 3. Prior ventricular fibrillation arrest, successfully resuscitated, status post implantable cardioverter-defibrillator implant. 4. Hyperthyroidism. 5. New diagnosis of diabetes mellitus. RECOMMENDATIONS: His current cardiac medications should continue for now. Treatment of his new-onset diabetes needs to be addressed. An outpatient followup stress test will be planned. If he has any recurrent symptoms, he is instructed to notify us. From a cardiac standpoint, he appears stable for discharge home once medically cleared. Outpatient followup has been arranged. Bimal Pina MD [facility]
== END 2019-01-20 14:15 | disposition home or self-care (01) ==
LOC: ED 10:22 → ERH 11:58 → 2RNO 14:34
PROVIDERS: ADMIT Internal Medicine; ATTEND Internal Medicine
DX: I25.10 Atherosclerotic heart disease of native coronary artery without angina pectoris (principal); I11.0 Hypertensive heart disease with heart failure; I50.20 Unspecified systolic (congestive) heart failure; E11.65 Type 2 diabetes mellitus with hyperglycemia; E03.9 Hypothyroidism, unspecified; E05.90 Thyrotoxicosis, unspecified without thyrotoxic crisis or storm; E78.5 Hyperlipidemia, unspecified; I25.2 Old myocardial infarction; Z79.4 Long term (current) use of insulin; Z83.3 Family history of diabetes mellitus; F17.210 Nicotine dependence, cigarettes, uncomplicated; Z95.1 Presence of aortocoronary bypass graft; Z95.810 Presence of automatic (implantable) cardiac defibrillator
CPT/HCPCS: 36415; 71045; 80053; 80061; 81003; 82948; 83036; 83735; 83880; 84100; 84439; 84443; 84481; 84484; 85025; 85610; 85730; 93005; 93306; 96372; 96374; 99285; G0378; J1650; J2405; J7030